=== PATIENT | female | born 1940 | race Caucasian/White ===

== ENCOUNTER 2022-04-17 11:00 | Emergency (ER) | payer MEDICARE, BC, SELFPAY ==
[2022-04-17 11:10] VITALS: BP 127/77; PULSE 83; RESP 19; TEMP 36.6; O2SAT 97; BMI 20.6
--- NOTE | 2022-04-17 14:11 | XR_ITS ---
WS: [id number] XR chest 1V portable [id number] REASON FOR EXAM: dyspnea FINDINGS: Moderate tortuosity the thoracic aorta. Normal heart size. Coarse reticular nodular interstitial densities in both lower lung collazo and the periphery of the ri ght upper lung field. Compared to the previous examination of 02/02/2019 these would appear to be chronic lung abnormalities. Small areas of lucency throughout both lungs compatible with central lobar emphysema or honeycomb dilia ng secondary to interstitial lung disease. No acute pulmonary parenchymal or pleural abnormality is identified. XR/XR chest 1V portable [id number] IMPRESSION: Stable chronic lung disease with no acute abnormality identified.
--- NOTE | 2022-04-17 14:12 | ECG_ITS ---
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 Measurements Intervals [place] Rate: 78 P: 54 MA: 195 QRS: -22 QRSD: 77 T: 15 QT: 363 QTc: 415 Interpretive Statements SINUS RHYTHM LOW QRS VOLTAGE IN PRECORDIAL LEADS [QRS DEFLECTION < 1.0 mV IN CHEST LEADS] INFERIOR MYOCARDIAL INFARCTION , PROBABLY OLD [40+ ms Q WAVE AND/OR ST/T ABNORMALITY IN II/aVF] Compared to ECG 04/22/2015 23:15:41 Low QRS voltage now present Myocardial infarct finding now present ST (T wave) deviation no longer present Electronically Signed On 04-17-2022 20:57:01 CDT by Isabel Hardwick M.D. [id number]
--- NOTE | 2022-04-17 14:39 | ED_ITS ---
HPI - General Adult General: Chief complaint: Shortness of Breath/Dyspnea Stated complaint: SOB, Low B/P Time Seen by Provider: 04/17/22 14:11 History of Present Illness: 81-year-old female with a history of recurrent pneumonia presenting to the emergency room with 2 days of nonproductive cough and 1 day of respiratory distress. Patient tells me that 2 days ago she began coughing and has since then worsened. Patient denies any mucus production. Earlier today, patient reports shortness feeling short of breath. Patient denies any fever reports chills. He has intermittent chest pressure over the last few days. Patient denies any exertional chest pain, pleuritic chest pain, diarrhea, melena hematochezia. Patient denies any change in taste. Denies any complaints at this time. Of note, patient has been hospitalized in the past for pneumonia. She denies any history of smoking, COPD or asthma. Onset: 2 days ago Duration:2 days Location:home Severity: moderate Associated symptoms: Reports dyspnea; Deny chest pain, nausea, rash, palpitations or vomiting Review of Systems Const: Denies: fever(s) or chills Eyes: Denies: change in vision ENMT: Denies: mouth pain Card: Denies: chest pain or palpitations Resp: Reports: dyspnea and non-productive cough GI: Denies: abdominal pain, nausea, vomiting or diarrhea : Denies: dysuria Musc: Denies: extremity pain Skin/Breast: Denies: rash or new lesions Neuro: Denies: weakness in extremities Psych: Reports: other (Normal mood) Hiren/Lymph: Denies: easy bruising PFS ED PFSH: Medical History Pneumonia Social History Smoking and tobacco status: never smoked Alcohol intake: never Physical Exam Const: COMMON NORMALS: alert HENMT: COMMON NORMALS: atraumatic HEAD & SCALP: atraumatic MOUTH: moist mucous membranes not abnormal Eye: COMMON NORMALS: EOMs intact bilaterally and conjunctivae normal CONJUNCTIVA: Yes conjunctivae normal Neck/C-Spine: COMMON NORMALS: full ROM and supple Resp: COMMON NORMALS: normal respiratory effort OTHER: + Mild increased work breathing, mild bilateral expiratory wheeze Cardio: COMMON NORMALS: regular rate RATE: regular rate GI: COMMON NORMALS: Soft to palpation and non-tender PALPATION: Yes Soft to palpation Extremity: COMMON NORMALS: full ROM Neuro: SENSORIUM/ORIENTATION: Yes alert MOTOR EXAM: No Abnormal motor strength present and Other motor observations present (no focal motor deficits) Psych: COMMON NORMALS: speech normal SPEECH: Yes normal speech MOOD & AFFECT: Yes euthymic mood Course Vital Signs: Vital signs: Vital Signs Temperature 97.9 F 04/17/22 11:10 Pulse Rate 66 04/17/22 17:08 Respiratory Rate 16 04/17/22 17:08 Blood Pressure 124/67 04/17/22 17:08 Pulse Oximetry 94 04/17/22 16:43 MDM - General Adult Medical Decision Making 81-year-old female with history of recurrent pneumonia presenting to the emergency room 2 days of cough followed by shortness of breath x1 day. On physical exam, patient is hemodynamically stable satting at greater than 95% on room air. Patient has bilateral expiratory wheezes mild increased work of sang thing. No signs of oral airway compromise or respiratory distress. X-ray chest is similar to prior. Patient's COVID antigen positive. No signs of hypoxemia were observed in the emergency room. Patient received DuoNeb treatment with significant symptomatic improvement in wheezing. Patient reports that she is no longer in respiratory distress. I discussed with pharmacy with recommendation for paxlovid since patient is a candidate for outpatient treatment. Patient meets criteria for receiving Paxlovid. Rx: tylenol PRN fever and pain, albuterol for respiratory distress, palvodi I have given patient strict return precaution for any drops in the pulse ox to less than 88% while on oxygen. Disposition: Discharge. Patient counseled regarding diagnostic impression, treatment plan. Patient given ED strict return precautions to return for continuation, worsening, or development of new symptoms. Instructed to f/u w/ PCP regarding symptoms today. Patient verbalized understanding. Lab Data : 04/17/22 15:00 04/17/22 15:46 Radiology Impressions Chest X-Ray 04/17/22 14:11 IMPRESSION: Stable chronic lung disease with no acute abnormality identified. Laboratory Results WBC 7.3 10^3/uL (4.0-10.0) 04/17/22 15:00 RBC 4.74 10^6/uL (4.1-5.3) 04/17/22 15:00 Hgb 14.3 g/dL (11.5-15.3) 04/17/22 15:00 Hct 43.0 % (37.0-47.0) 04/17/22 15:00 MCV 90.7 fl (81-99) 04/17/22 15:00 MCH 30.2 pg (28.0-34.0) 04/17/22 15:00 MCHC 33.3 g/dL (30.0-36.0) 04/17/22 15:00 RDW 13.0 % (12.1-15.1) 04/17/22 15:00 Plt Count 234 10^3/cmm (130-400) 04/17/22 15:00 MPV 10.7 fL (7.4-10.4) H 04/17/22 15:00 Neut % (Auto) 67.3 % 04/17/22 15:00 Lymph % (Auto) 23.9 % 04/17/22 15:00 [place] % (Auto) 7.0 % 04/17/22 15:00 Eos % (Auto) 1.1 % 04/17/22 15:00 Baso % (Auto) 0.4 % 04/17/22 15:00 Neut # (Auto) 4.90 10^3/uL (1.8-7.7) 04/17/22 15:00 Lymph # (Auto) 1.7 10^3/uL (0.8-4.8) 04/17/22 15:00 [place] # (Auto) 0.5 10^3/uL (0.2-0.9) 04/17/22 15:00 Eos # (Auto) 0.1 10^3/uL (0.0-0.8) 04/17/22 15:00 Baso # (Auto) 0.0 10^3/uL (0.0-0.1) 04/17/22 15:00 Nucleated RBC % (auto) 0 % 04/17/22 15:00 Nucleated RBCs # 0.0 /100WBC 04/17/22 15:00 Sodium 135 mmol/L (136-145) L 04/17/22 15:46 Potassium 3.3 mmol/L (3.5-5.1) L 04/17/22 15:46 Chloride 100 mmol/L (98-107) 04/17/22 15:46 Carbon Dioxide 20 mmol/L (22-29) L 04/17/22 15:46 Anion Gap 18.3 (5-19) 04/17/22 15:46 BUN 18 mg/dL (8-23) 04/17/22 15:46 Creatinine 0.9 mg/dL (0.5-0.9) 04/17/22 15:46 GFR Calculation Not Reportable 04/17/22 15:46 Glucose 106 mg/dL (65-115) 04/17/22 15:46 Calculated Osmolality 282 mOsm/kg (285-295) L 04/17/22 15:46 Calcium 9.9 mg/dL (8.5-10.5) 04/17/22 15:46 Troponin T Baseline 6 ng/L (0-10) 04/17/22 15:00 C-Reactive Protein 9.8 mg/L (0.0-4.9) H 04/17/22 15:46 NT-Pro-B Natriuret Pep 632 pg/mL (0-450) H 04/17/22 15:46 Procalcitonin 0.07 ng/mL (0-0.5) 04/17/22 15:46 Influenza Type A Ag Negative (Negative) 04/17/22 15:00 Influenza Type B Ag Negative (Negative) 04/17/22 15:00 SARS-CoV-2 Ag (Rapid) Positive (Negative) H 04/17/22 15:00 Imaging Data Other Imaging: Radiologist's impression: [address] [address] XRay Report Signed Patient: Karen Hernandes Unit #: [id number] : 1940 Age/Sex: 81 / F ADM Date: 04/17/22 Loc: ER Room/Bed: Attending Dr: Ordering Provider/Ordering MD: Tai Hatfield MD Date of Service: 04/17/22 Procedure(s): XR chest 1V portable [id number] Accession Number(s): [id number] Report Number: [id number] WS: [id number] XR chest 1V portable [id number] REASON FOR EXAM: dyspnea FINDINGS: Moderate tortuosity the thoracic aorta. Normal heart size. Coarse reticular nodular interstitial densities in both lower lung collazo and the periphery of the right upper lung field. Compared to the previous examination of 02/02/2019 these would appear to be chronic lung abnormalities. Small areas of lucency throughout both lungs compatible with central lobar emphysema or honeycomb lung secondary to interstitial lung disease. No acute pulmonary parenchymal or pleural abnormality is identified. XR/XR chest 1V portable [id number] IMPRESSION: Stable chronic lung disease with no acute abnormality identified. ? ? Dictated By: Juarez Khan Jr, MD Signed By: Juarez Khan Jr, MD Signed Date/Time: 04/17/22 1505 DD/ 1458 Discharge Plan Discharge Patient Disposition: Home Clinical Impression: Acute dyspnea, Cough, Bilateral wheezing, COVID Prescriptions: New acetaminophen 500 mg tablet 500 mg PO Q6H PRN (Reason: pain) 5 Days Qty: 20 0RF albuterol sulfate 90 mcg/actuation HFA aerosol inhaler 2 inh inhalation Q4H PRN (Reason: shortness of breath or wheezing) 5 Days Qty: 6.7 0RF Paxlovid (EUA) 150 mg x 2- 100 mg tablet See Rx Instructions .ROUTE .COMPLEX Qty: 6 0RF Rx Instructions: take TWO 150 mg tablets of nirmatrelvir with ONE 100 mg tablet of ritonavir twice daily for 5 days No Action albuterol sulfate 90 mcg/actuation HFA aerosol inhaler 2 puff INHALATION Q4H PRN (Reason: Shortness Of Breath) 0RF fluticasone propionate 50 mcg/actuation spray,suspension 1 spray INTRANASAL BID PRN (Reason: Allergy Symptoms) 0RF Discharge Orders: Discharge ED (Routine); Ordered 04/17/22 Ordered By: Tai Hatfield Discharge Diet: Advance as tolerated Discharge Activity: Increase activity as tolerated Activity Restrictions/Additional Instructions: Please return the emergency room if your pulse ox reads less than 88%. Come back to the emergency room if your symptoms worsen, have any shortness of breath, fever/chills, dehydration, inability tolerate food or drinks, any difficulty breathing, or any new or concerning complaints. Coding Level of Care Code ED Insurance Operations Rep for Keke Fwd Exam Comprehensive
[2022-04-17] MEDS: ipratropium-albuterol 3 mL Neb INHALATION ×3 (15:12→15:22)
[2022-04-17 15:16] VITALS: PULSE 78; RESP 16; O2SAT 93
[2022-04-17 15:16] LABS: Basophils % 0.4 %; Eosinophils # 0.1 10^3/uL (0.0-0.8); Eosinophils % 1.1 %; Hemoglobin 14.3 g/dL (11.5-15.3); Lymphocytes # 1.7 10^3/uL (0.8-4.8); Lymphocytes % 23.9 %; Mean Corpuscular HGB Conc 33.3 g/dL (30.0-36.0); Mean Corpuscular Hemoglobin 30.2 pg (28.0-34.0); Mean Corpuscular Volume 90.7 fl (81-99); Mean Platelet Volume 10.7 fL (7.4-10.4); Monocytes # 0.5 10^3/uL (0.2-0.9); Neutrophils % 67.3 %; Nucleated Red Blood Cells % 0 %; Platelet Count 234 10^3/cmm (130-400); Red Blood Count 4.74 10^6/uL (4.1-5.3); White Blood Count 7.3 10^3/uL (4.0-10.0)
[2022-04-17 15:36] LABS: Influenza A by IFA Negative (Negative); Influenza B by IFA Negative (Negative); SARS Covid-2 Antigen Positive (Negative)
[2022-04-17 15:45] LABS: Troponin(5th) Baseline 6 ng/L (0-10)
[2022-04-17 16:35] LABS: NT Pro B Type Natriuretic Pept 632 pg/mL (0-450); Procalcitonin 0.07 ng/mL (0-0.5)
[2022-04-17 16:43] VITALS: O2SAT 94; O2SAT 96
[2022-04-17 16:46] LABS: Anion Gap 18.3 (5-19); Blood Urea Nitrogen 18 mg/dL (8-23); C Reactive Protein 9.8 mg/L (0.0-4.9); Calcium 9.9 mg/dL (8.5-10.5); Carbon Dioxide 20 mmol/L (22-29); Chloride 100 mmol/L (98-107); Glucose 106 mg/dL (65-115); Osmolality Calculated 282 mOsm/kg (285-295); Potassium 3.3 mmol/L (3.5-5.1); Sodium 135 mmol/L (136-145)
[2022-04-17 17:08] VITALS: BP 124/67; PULSE 66; RESP 16
== END 2022-04-17 17:11 | disposition home or self-care (01) ==
PROVIDERS: Emergency Provider Emergency Medicine
DX: U07.1 COVID-19 (principal)
CPT/HCPCS: 71045; 80048; 83880; 84145; 84484; 85025; 86140; 87426; 87804; 93005; 94640; 99285

== ENCOUNTER 2023-01-22 11:46 | Inpatient (IN) | payer MEDICARE, SELFPAY ==
[2023-01-22] VITALS (11 sets, daily range): BP systolic 108–133; BP diastolic 63–81; PULSE 88–101; RESP 15–20; TEMP 36.5–36.9; O2SAT 90–100; BMI 16.9
--- NOTE | 2023-01-22 12:00 | CT_ITS ---
WS: [id number] CT LUMBAR SPINE TECHNIQUE: Noncontrast CT of the lumbar spine with coronal and sagittal reformatted images. CLINICAL INFORMATION: fall, back pain COMPARISON: None. DLP: 298.[address] scans at [facility] use at least one of these dose optimization techniques: automated e xposure control; mA and/or kV adjustment per patient size (includes targeted exams where dose is matc hed to clinical indication); or iterative reconstruction. FINDINGS: Slight anterolisthesis L3 on L4 and L4 on L5 with vacuum disc phenomenon. Disc space narrow ing worse at L2-L3. Small infrarenal abdominal aortic aneurysm measuring 2.3 x 2.4 cm AP by transvers e. Trace pleural fluid LEFT lower lobe. Acute compression fracture T12 superior endplate with mild retropulsion posterior superior cortex wit h mild central canal stenosis. Slight effacement of ventral thecal sac. Loss of approximately 25% tone tebral body height. No other acute compression fractures. L1-L2: Mild annular bulging. Spinal canal and foramen are patent. Mild facet arthropathy. L2-L3: Mild disc bulging with slight narrowing of the subarticular recess bilaterally. Mild facet art hropathy. L3-L4: Slight anterolisthesis L3 on L4. Moderate central canal stenosis. Impingement traversing L4 ne rve roots bilaterally. Moderate facet arthropathy. Mild RIGHT foraminal narrowing. L4-L5: Slight anterolisthesis L4 on L5. Mild disc bulging with impingement traversing L5 nerve roots bilaterally. Mild central canal stenosis. Mild RIGHT foraminal narrowing. L5-S1: Mild annular bulging. Slight effacement of ventral thecal sac. Spinal canal foramen are patent . Adrenal glands are normal. Vascular calcification. CT/CT lumbar spine wo con* [id number] IMPRESSION: 1. Acute compression fracture T12 superior endplate with loss of approximately 25% vertebral body height. Minimal retropulsion with slight effacement of vent ral thecal sac and mild central canal stenosis. 2. Moderate central canal stenosis L3-L4 due to grade 1 anterolisthesis in com bination with facet arthropathy ligamentum flavum hypertrophy. 3. Mild central canal stenosis L4-L5. Notified Rodo Alexander DO at 01/22/2023 1:19 PM.
[2023-01-22] MEDS: lactated ringers 500 ML 999 ML IV ×2 (12:28→15:31)
[2023-01-22 12:34] LABS: Basophils # 0.1 10^3/uL (0.0-0.1); Basophils % 0.4 %; Eosinophils # 0.1 10^3/uL (0.0-0.8); Eosinophils % 0.4 %; Hematocrit 37.8 % (37.0-47.0); Hemoglobin 12.3 g/dL (11.5-15.3); Lymphocytes # 1.8 10^3/uL (0.8-4.8); Lymphocytes % 11.6 %; Mean Corpuscular HGB Conc 32.5 g/dL (30.0-36.0); Mean Corpuscular Hemoglobin 29.7 pg (28.0-34.0); Mean Corpuscular Volume 91.3 fl (81-99); Mean Platelet Volume 8.9 fL (7.4-10.4); Monocytes % 6.3 %; Neutrophils # 12.31 10^3/uL (1.8-7.7); Neutrophils % 79.7 %; Nucleated Red Blood Cells % 0 %; Platelet Count 398 10^3/cmm (130-400); Red Blood Count 4.14 10^6/uL (4.1-5.3); White Blood Count 15.4 10^3/uL (4.0-10.0)
[2023-01-22 12:50] LABS: Alanine Aminotransferase 11 U/L (0-33); Albumin Level 3.5 g/dL (3.5-5.2); Alkaline Phosphatase 77 U/L (35-105); Anion Gap 15.1 (5-19); Aspartate Amino Transferase 25 U/L (0-32); Blood Urea Nitrogen 24 mg/dL (8-23); Calcium 9.8 mg/dL (8.5-10.5); Carbon Dioxide 26 mmol/L (22-29); Chloride 94 mmol/L (98-107); Glucose 106 mg/dL (65-115); Osmolality Calculated 276 mOsm/kg (285-295); Potassium 4.1 mmol/L (3.5-5.1); Sodium 131 mmol/L (136-145); Total Bilirubin 0.5 mg/dL (0.15-1.2); Total Protein 8.5 g/dL (6.6-8.7)
--- NOTE | 2023-01-22 13:24 | W.ED.FALL ---
HPI - Fall General: Chief Complaint: Fall Stated Complaint: Back pain Time Seen by Provider: 01/22/23 11:51 Source: patient Mode of arrival: EMS History of Present Illness: 82-year-old female who presents to the emergency room after a fall this morning. She had gotten up to go to the kitchen got lightheaded and dizzy and fell she said she has had this issue before she never had any chest pain she has severe back pain at this time. She had a period of time where she was this unconscious. She has not had any vision changes no localizing symptoms no difficulty speech or swallowing. She is complaining of some shortness of breath. MD complaint: fall Onset (ago): minute(s) Fall from: standing Place fall occurred: home Loss of consciousness: Yes Symptoms prior to fall: lightheadedness Location of injury: back Associated symptoms-after fall: Reports lightheadedness; Denies abdominal pain, chest pain, confusion, difficulty walking, headache(s), hematuria, neck pain, numbness, short of breath, vertigo or weakness Review of Systems Const: Denies: fever(s), chills, body aches, change in appetite, fatigue or malaise ENMT: Denies: throat pain, ear or mastoid pain, nasal discharge or nasal congestion Card: Reports: lightheadedness; Denies: chest pain Resp: Reports: dyspnea and non-productive cough; Denies: productive cough GI: Denies: abdominal pain, nausea or vomiting : Denies: dysuria, urinary frequency, urinary urgency or hematuria Musc: Denies: neck pain Skin/Breast: Denies: rash or pruritus Neuro: Denies: headache(s), difficulty walking, vertigo or confusion PFSH ED PFSH: Medical History Allergic rhinitis COVID Pneumonia Surgical History H/O section History of abdominal surgery Family History Father Myocardial infarction Family/Other Breast cancer Social History Smoking and tobacco status: never smoked Alcohol intake: never Substance/Drug Use: never Physical Exam Const: GENERAL APPEARANCE: cooperative and comfortable ORIENTATION/CONSCIOUSNESS: Yes awake, Yes oriented to person, Yes oriented to place and Yes oriented to time HENMT: COMMON NORMALS: normocephalic, atraumatic and hearing grossly normal bilaterally HEAD & SCALP: normocephalic and atraumatic Resp: COMMON NORMALS: normal respiratory effort, No retractions, No use of accessory muscles and clear to auscultation bilaterally AUSCULTATION: clear to auscultation bilaterally Cardio: COMMON NORMALS: regular rate, regular rhythm and No murmurs present (Cardio) RATE: regular rate RHYTHM: regular rhythm GI: COMMON NORMALS: Soft to palpation and No hepatosplenomegaly present AUSCULTATION: Yes normoactive bowel sounds PALPATION: Yes Soft to palpation, No Tenderness to palpation present (GI), No Guarding due to palpation present (GI) and Yes No hepatosplenomegaly present Extremity: COMMON NORMALS: normal to inspection, capillary refill normal, no clubbing, cyanosis or edema, no calf tenderness and no pedal edema Neuro: SENSORIUM/ORIENTATION: Yes oriented to person, Yes oriented to place and Yes oriented to time Skin: COMMON NORMALS: no rashes or lesions noted GENERAL SKIN EXAM: no rashes or lesions noted Course Vital Signs: Vital signs: Vital Signs Temperature 101.1 F H 01/23/23 03:41 Pulse Rate 125 H 01/23/23 03:41 Respiratory Rate 15 01/23/23 03:41 Blood Pressure 132/88 01/23/23 03:41 Pulse Oximetry 91 01/23/23 03:41 Oxygen Delivery Me thod Nasal Cannula 01/23/23 03:41 Oxygen Flow Rate 2 01/23/23 03:41 MDM - Fall Medical Decision Making Chest x-ray she does have some leukocytosis will cover with antibiotics discussed with hospitalist. Will admit to hospitalist service. Her oxygen saturations are normal pain control. Discussed Dr. gaviria and he is agreed to see the patient on inpatient basis for consultation regarding the back fracture. Fragment of retropulsion when she will evaluate further Medical Records I reviewed the patient's medical records. Lab Data I reviewed the patient's lab results. 01/23/23 05:00 01/23/23 05:00 Radiology Impressions Lumbar Spine CT 01/22/23 12:00 IMPRESSION: 1. Acute compression fracture T12 superior endplate with loss of approximately 25% vertebral body height. Minimal retropulsion with slight effacement of ventral thecal sac and mild central canal stenosis. 2. Moderate central canal stenosis L3-L4 due to grade 1 anterolisthesis in combination with facet arthropathy ligamentum flavum hypertrophy. 3. Mild central canal stenosis L4-L5. Notified Rodo Alexander DO at 01/22/2023 1:19 PM. Chest X-Ray 01/22/23 13:25 IMPRESSION: 1. Consolidating infiltrates in the right lower lobe suspicious for pneumonia. 2. Superimposed chronic changes and widespread changes of honeycombing and emphysema noted. Cervical Spine CT 01/22/23 13:26 IMPRESSION: No evidence of acute fracture or dislocation. Head CT 01/22/23 13: IMPRESSION: 1. No evidence of intracranial hemorrhage or mass effect. 2. Moderate small vessel changes moderate parenchymal volume loss. 3. Vascular calcification. 4. No acute intracranial findings. Thoracic Spine MRI 01/22/23 17:27 IMPRESSION: Acute compression fracture of T12 vertebral body. No spinal canal compromise. Additional details as above. Laboratory Results WBC 15.4 10^3/uL (4.0-10.0) H 01/22/23 12:27 RBC 4.14 10^6/uL (4.1-5.3) 01/22/23 12:27 Hgb 12.3 g/dL (11.5-15.3) 01/22/23 12:27 Hct 37.8 % (37.0-47.0) 01/22/23 12:27 MCV 91.3 fl (81-99) 01/22/23 12:27 MCH 29.7 pg (28.0-34.0) 01/22/23 12:27 MCHC 32.5 g/dL (30.0-36.0) 01/22/23 12:27 RDW 13.0 % (12.1-15.1) 01/22/23 12:27 Plt Count 398 10^3/cmm (130-400) 01/22/23 12:27 MPV 8.9 fL (7.4-10.4) 01/22/23 12:27 Neut % (Auto) 79.7 % 01/22/23 12:27 Lymph % (Auto) 11.6 % 01/22/23 12: [place] % (Auto) 6.3 % 01/22/23 12: Eos % (Auto) 0.4 % 01/22/23 12: Baso % (Auto) 0.4 % 01/22/23 12: Neut # (Auto) 12.31 10^3/uL (1.8-7.7) H 01/22/23 12: Lymph # (Auto) 1.8 10^3/uL (0.8-4.8) 01/22/23 12: [place] # (Auto) 1.0 10^3/uL (0.2-0.9) H 01/22/23 12: Eos # (Auto) 0.1 10^3/uL (0.0-0.8) 01/22/23 12: Baso # (Auto) 0.1 10^3/uL (0.0-0.1) 01/22/23 12: Nucleated RBC % (auto) 0 % 01/22/23 12: Nucleated RBCs # 0.0 /100WBC 01/22/23 12: Sodium 131 mmol/L (136-145) L 01/22/23 12: Potassium 4.1 mmol/L (3.5-5.1) 01/22/23 12: Chloride 94 mmol/L (98-107) L 01/22/23 12: Carbon Dioxide 26 mmol/L (22-29) 01/22/23 12: Anion Gap 15.1 (5-19) 01/22/23 12: BUN 24 mg/dL (8-23) H 01/22/23 12: Creatinine 0.9 mg/dL (0.5-0.9) 01/22/23 12: GFR Calculation Not Reportable 01/22/23 12: Glucose 106 mg/dL (65-115) 01/22/23 12: Calculated Osmolality 276 mOsm/kg (285-295) L 01/22/23 12: Calcium 9.8 mg/dL (8.5-10.5) 01/22/23 12: Total Bilirubin 0.5 mg/dL (0.15-1.2) 01/22/23 12: AST 25 U/L (0-32) 01/22/23 12:27 ALT 11 U/L (0-33) 01/22/23 12:27 Alkaline Phosphatase 77 U/L (35-105) 01/22/23 12:27 C-Reactive Protein 45.4 mg/L (0.0-4.9) H 01/22/23 12:27 Total Protein 8.5 g/dL (6.6-8.7) 01/22/23 12: Albumin 3.5 g/dL (3.5-5.2) 01/22/23 12: Globulin 5.0 g/dL (1.3-4.6) H 01/22/23 12:27 Procalcitonin 0.12 ng/mL (0-0.5) 01/22/23 12:27 Urine Color Yellow (Yellow) 01/22/23 13:09 Urine Appearance Clear (CLEAR) 01/22/23 13:09 Urine pH 6 (5-7) 01/22/23 13:09 Ur Specific [place] 1.010 (1.005-1.030) 01/22/23 13:09 Urine Protein Neg (Negative) 01/22/23 13:09 Urine Glucose (UA) Norm (Normal) 01/22/23 13:09 Urine Ketones Negative (Negative) 01/22/23 13:09 Urine Blood Neg (Negative) 01/22/23 13:09 Urine Nitrate Negative (Negative) 01/22/23 13:09 Urine Bilirubin Neg (Negative) 01/22/23 13:09 Urine Urobilinogen Norm mg/dL (Negative) 01/22/23 13:09 Ur Leukocyte Esterase Negative (Negative) 01/22/23 13:09 Discharge Plan Discharge Patient Disposition: Admitted As Inpatient Admit Provider: Manjinder Russell Clinical Impression: Traumatic compression fracture of T12 thoracic vertebra, Right lower lobe pneumonia Condition: Stable Coding Level of Care Code ED Blood Bank Business Manager for Keke Alvarez
--- NOTE | 2023-01-22 13:25 | XR_ITS ---
WS: [email or web address] Exam: XR chest 1V portable [id number] Date/Time of Exam: 01/22/2023 1:27 PM Reason For Exam: dyspnea/cough Comparison 04/17/2022. Consolidated infiltrate noted in the right lower lobe suspicious for active pneumonia. Chronic left b hung changes noted. Advanced changes of honeycombing and fibrosis in both lungs. Heart size is normal . The mediastinum is unremarkable for portable technique. Bony structures are intact. Bilateral apica l pleural thickening. XR/XR chest 1V portable [id number] IMPRESSION: 1. Consolidating infiltrates in the right lower lobe suspicious for pneumonia. 2. Superimposed chronic changes and widespread changes of honeycombing and emph ysema noted.
[2023-01-22 13:26] LABS: Add Urine Microscopic? NO; Charge for UA Resulting for Rev
--- NOTE | 2023-01-22 13:26 | CT_ITS ---
WS: [id number] CT CERVICAL TRAUMA TECHNIQUE: Noncontrast CT of the cervical spine with coronal and sagittal reformatted images. CLINICAL INFORMATION: Neck pain COMPARISON: None. DLP: 1306.[address] scans at [facility] use at least one of these dose optimization techniques: automated e xposure control; mA and/or kV adjustment per patient size (includes targeted exams where dose is matc hed to clinical indication); or iterative reconstruction. FINDINGS: Moderate spondylitic changes cervical spine. Slight anterolisthesis C3 on C4. Disc space narrowing wo rse at C4-C5 C5-C6 and C6-C7.. Normal craniocervical junction. Normal C1-C2 articulation. Dens is nor mal in appearance. Normal occipital condyles. No high-grade spinal canal narrowing. Normal C1 ring. N o evidence of acute fracture or dislocation. Normal prevertebral soft tissues. Mastoids air cells are well aerated. CT/CT cervical spin wo con* [id number] IMPRESSION: No evidence of acute fracture or dislocation.
--- NOTE | 2023-01-22 13:26 | CT_ITS ---
WS: [email or web address] CT HEAD TECHNIQUE: Noncontrast CT of the head obtained from the skullbase to the vertex. CLINICAL INFORMATION: fall COMPARISON: None. DLP: 1306.[address] scans at [facility] use at least one of these dose optimization techniques: automated e xposure control; mA and/or kV adjustment per patient size (includes targeted exams where dose is matc hed to clinical indication); or iterative reconstruction. FINDINGS: No evidence of intracranial hemorrhage or mass effect. Ventricular system and basal cisterns are henderson nt. Moderate small vessel changes with moderate parenchymal volume loss. No extra-axial fluid collect ions. No evidence of mass or mass effect. Vascular calcification. Paranasal sinuses and mastoid air cells are well aerated. .Normal visualized soft tissues. CT/CT head wo con* [id number] IMPRESSION: 1. No evidence of intracranial hemorrhage or mass effect. 2. Moderate small vessel changes moderate parenchymal volume loss. 3. Vascular calcification. 4. No acute intracranial findings.
[2023-01-22 13:41] LABS: Glucose Urine UA Norm (Normal); Protein Urine Neg (Negative); Urine Appearance Clear (CLEAR); Urine Color Yellow (Yellow); pH Urine 6 (5-7)
[2023-01-22 13:42] LABS: Bilirubin Urine Neg (Negative); Blood Urine Neg (Negative); Ketones Urine Negative (Negative); Leukocyte Esterase Urine Negative (Negative); Nitrate Urine Negative (Negative); Urobilinogen Urine Norm (Negative)
[2023-01-22] MEDS: morphine 4 mg/mL SDV 1 mL IVP (13:53)
--- NOTE | 2023-01-22 15:10 | PM.HP ---
Providers/Chief Complaint Admitting Physician: Manjinder Russell MD Primary Care Provider: Eber Albarran MD Chief Complaint: Back pain History of Present Illness Karen Hernandes is a 82 year old female with a past medical history significant for recurrent pneumonia who presents to the emergency department complaining of low back pain. Patient reports she was in her usual state of health until today when she got dizzy in her kitchen and fell. After falling, she had severe low back pain. She rates her low back pain currently 20 out of 10. She reports any movement worsens pain. Rest improves pain. She got morphine in ED but states it has not helped but seems to have caused a headache. Patient also endorses worsening chronic cough. She describes her cough as severe and productive. She notes copious sputum production. She reports at least 4 prior severe pneumonias. Denies history of known asthma or COPD. She denies home oxygen use. She states that she lives alone and performs her own ADLs. Family is next door and can help if needed. Review of Systems Narrative: A complete review of systems was obtained and is negative except as stated in HPI. Medications/Allergies Home Medications Medication Instructions Recorded Confirmed Last Taken Type albuterol sulfate 90 mcg/actuation 2 puff inhalation Q4H PRN 04/17/22 01/22/23 Unknown History aerosol inhaler Shortness Of Breath acetaminophen 500 mg tablet 500 mg PO Q6H PRN Pain 01/22/23 01/22/23 Unknown History cetirizine 10 mg tablet 10 mg PO BEDTIME 01/22/23 01/22/23 Unknown History dextromethorphan-guaifenesin 5 10 ml PO DAILY PRN Congestion 01/22/23 01/22/23 Unknown History mg-100 mg/5 mL oral liquid (Mucinex Fast-Max DM Max) lorazepam 1 mg tablet 0.5 - 1 mg PO DAILY PRN Anxiety 01/22/23 01/22/23 Unknown History montelukast 10 mg tablet 10 mg PO DAILY PRN Allergy Symptoms 01/22/23 01/22/23 Unknown History Allergies Allergy/AdvReac Type Severity Reaction Status Date / Time meperidine [From Demerol] Allergy ADR-Halluci Verified 01/22/23 13:01 nating PFSH Acute PFSH: Medical History Allergic rhinitis COVID Pneumonia Surgical History H/O section History of abdominal surgery Family History Father Myocardial infarction Family/Other Breast cancer Social History Smoking and tobacco status: never smoked Alcohol intake: never Substance/Drug Use: never Vitals/I&O/Wt Last Vital Signs Temp 98.4 F 01/22/23 11:48 Pulse 88 01/22/23 11:48 Resp 16 01/22/23 13:53 BP 111/78 01/22/23 11:48 Pulse Ox 97 01/22/23 13:53 O2 Del Method Room Air 01/22/23 11:48 01/22/23 01/22/23 01/22/23 06:59 14:59 22:59 Intake Total 500 / 500 Balance 500 / 500 Weight last 48 hrs Weight 42.184 kg Physical Exam Narrative: General: Patient is awake. Appears uncomfortable. Head: Normocephalic. Atraumatic. EOM intact. Neck: No JVD. Cardiovascular: RRR. No gallops. No murmurs. No peripheral edema. Lungs: Rales in right lung base. Left lung clear. No use of accessory muscles, no crackles or wheezes. Cough is present. Skin: No jaundice. No rashes. Abdomen: Normal bowel sounds, abdomen soft and nontender. Genito Urinary: Genital exam not performed since complaints not related. Rectal: Rectal exam not performed since no symptoms indicated blood loss. Back: Back exam deferred due to severe pain. Extremities: No cyanosis or clubbing. Musculoskeletal: No swollen or erythematous joints. Neurological: Moves all 4 extremities. No myoclonus. Data 01/22/23 12:27 01/22/23 12:27 A&P Assessment and plan (1) T12 vertebral fracture: Acute T12 fracture secondary to mechanical fall Surgery consulted Multimodal pain control Bedrest Will eventually need PT and OT Consider calcium and vitamin D supplementation (2) Right lower lobe pneumonia: Imaging reviewed including all past imaging Right sided infiltrate is worsening Symptoms are worsening Procal ordered Legionella ag ordered given hyponatremia Strep pneumo ag ordered Start ceftriaxone Start azithromycin Consider pulmonary referral RT consult Bronchodialator protocol (3) Fall: Denies LOC Head and cervical neck CT scan is pending Multimodal pain control Fall precautions (4) Hyponatremia: Hypovolemic hyponatremia Receiving IV fluids in ED Repeat labs in AM (5) Leukocytosis: Either 2/2 PNA versus stress induced CAP w/u as above Trend (6) Allergic rhinitis: Continue Zyrtec Continue Montelukast Plan DVT ppx: SCD Code Status: DNR - Discuss w/ patient with daughter Marilee present Attestations Medical Necessity Statement*: Patient presents with low back pain following mechanical fall likely brought on by right lower lobe community acquired pneumonia causing acute T12 fracture requiring IV analgesics, IV antibiotics, IV fluids, surgery consult and supportive care with expected hospitalization not to cross two midnights. Coding Level of Care Code Acute Code for [facility] Diagnoses T12 vertebral fracture S22.089A Right lower lobe pneumonia J18.9 Fall W19.XXXA Hyponatremia E87.1 Leukocytosis D72.829 Allergic rhinitis J30.9
[2023-01-22] MEDS: HYDROcodone-acetaminophen 5-325 mg Tablet 1 TAB PO ×2 (16:32→21:06)
[2023-01-22] MEDS: cefTRIAXone 1,000 MG in sodium chloride 0.9% (plus) 50 ML 100 MG IV (16:34)
[2023-01-22 16:57] LABS: C Reactive Protein 45.4 mg/L (0.0-4.9)
[2023-01-22 17:03] LABS: Procalcitonin 0.12 ng/mL (0-0.5)
--- NOTE | 2023-01-22 17:27 | MRR_ITS ---
PROCEDURE INFORMATION: Exam: MR Thoracic Spine Without Contrast Exam date and time: 01/22/2023 7:47 PM Age: 82 years old Clinical indication: Pain and injury or trauma; Fall; Fracture, traumatic; Unspecified; Pain in thoracic spine TECHNIQUE: Imaging protocol: Magnetic resonance imaging of the thoracic spine without contrast. COMPARISON: CT cervical spin wo con* [id number] 01/22/2023 2:22 PM FINDINGS: Bones/joints: Acute 40% compression of T12 vertebral body. Very minimal retropulsion noted but no spinal canal narrowing. 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 Spinal cord: Normal signal. No cord compression. Soft tissues: See Bones/joints finding. Lungs: Consolidated infiltrates at right lower lobe and perhaps involving a smaller portion of right middle lobe are most suspicious for pneumonia. Vasculature: Aberrant right subclavian artery. MR/MR thoracic spin wo con* [id number] IMPRESSION: Acute compression fracture of T12 vertebral body. No spinal canal compromise. Additional details as above.
--- NOTE | 2023-01-22 17:29 | P.CONIM_ITS ---
Providers/Reason For Consult Consulting Physician/Specialty*: Ortho spine Reason for Consult*: back pain Attending Physician: Manjinder Russell MD Primary Care Provider: Eber Albarran MD History of Present Illness History of Present Illness Karen Hernandes is a 82 year old female who fell at her residence on 01/22/2023 after becoming dizzy. She has had sharp stabbing pain in her back since the fall. She also describes pain at her bra line. This pain is been constant any movement makes it much worse. Any episodes of deep breathing or coughing has exacerbated her pain as well. She presented to the emergency room at [facility] following a CT scan that confirmed a T12 compression fracture. Her pain is in the upper lumbar and mid thoracic region. She denies any loss of conscious in the fall denies any neck pain. Denies any hip or leg pain. Review of Systems Narrative: A complete review of systems was obtained and is negative except as stated in HPI. Medications/Allergies Home Medications Medication Instructions Recorded Confirmed Last Taken Type albuterol sulfate 90 mcg/actuation 2 puff inhalation Q4H PRN 04/17/22 01/22/23 Unknown History aerosol inhaler Shortness Of Breath acetaminophen 500 mg tablet 500 mg PO Q6H PRN Pain 01/22/23 01/22/23 Unknown History cetirizine 10 mg tablet 10 mg PO BEDTIME 01/22/23 01/22/23 Unknown History dextromethorphan-guaifenesin 5 10 ml PO DAILY PRN Congestion 01/22/23 01/22/23 Unknown History mg-100 mg/5 mL oral liquid (Mucinex Fast-Max DM Max) lorazepam 1 mg tablet 0.5 - 1 mg PO DAILY PRN Anxiety 01/22/23 01/22/23 Unknown History montelukast 10 mg tablet 10 mg PO DAILY PRN Allergy Symptoms 01/22/23 01/22/23 Unknown History Allergies Allergy/AdvReac Type Severity Reaction Status Date / Time meperidine [From Demerol] Allergy ADR-Halluci Verified 01/22/23 13:01 nating Current Medications Generic Name Dose Route Start Last Admin Trade Name Freq PRN Reason Stop Dose Admin Hydrocodone Bitart/Acetaminophen 1 tab 01/22/23 15:07 01/22/23 16:32 Hydrocodone-Acetaminophen 5-325 Mg Tablet PO 1 tab Q4H PRN Administration MODERATE PAIN Ceftriaxone Sodium 1,000 mg/ 50 mls @ 100 mls/hr 01/22/23 16:00 01/22/23 16:34 Sodium Chloride IV 100 mls/hr Q24H BENITA Administration Protocol PFSH Acute PFSH: Medical History Allergic rhinitis COVID Pneumonia Surgical History H/O section History of abdominal surgery Family History Father Myocardial infarction Family/Other Breast cancer Social History Smoking and tobacco status: never smoked Alcohol intake: never Substance/Drug Use: never Vitals/I&O/Wt Last Vital Signs Temp 98.4 F 01/22/23 11:48 Pulse 91 01/22/23 14:57 Resp 16 01/22/23 14:57 BP 108/63 01/22/23 14:57 Pulse Ox 92 01/22/23 14:57 O2 Del Method Room Air 01/22/23 17:15 01/22/23 01/22/23 01/22/23 06:59 14:59 22:59 Intake Total 500 / 500 Balance 500 / 500 Weight last 48 hrs Weight 93 lb Weight 93 lb Physical Exam Narrative: She is alert and orient x3 she has good general appearance normal mood and affect. Moving both upper extremities without any limitations. She has good strength throughout both arms. No palpable pain over the shoulders elbows or wrists. She is able to rotate laterally bend her cervical spine with any obvious distress. No palpable pain in the cervical spine. She does have palpable pain in the mid thoracic region around the bra line as well as palpable pain in the lower thoracic upper lumbar region. She has good sensation light touch in both upper and lower extremities she has negative logroll bilaterally skin is clear warm femoral good cap refill dorsalis pedis posterior tibial pulses are palpable. She can flex and extend and rotate both extremities without any problems. Feet are warm with brisk cap refill. Calves are supple. HENMT: COMMON NORMALS: normocephalic and atraumatic HEAD & SCALP: normocephalic and atraumatic Resp: COMMON NORMALS: normal respiratory effort Cardio: COMMON NORMALS: regular rate and regular rhythm RATE: regular rate RHYTHM: regular rhythm GI: COMMON NORMALS: Soft to palpation and non-tender PALPATION: Yes Soft to palpation : COMMON NORMALS: Yes no CVA tenderness BLADDER/KIDNEY EXAM: Yes no CVA tenderness Back/Pelvis: COMMON NORMALS: no CVA tenderness Psych: COMMON NORMALS: mental status grossly normal and cooperative Data 01/22/23 12:27 01/22/23 12:27 Other data: CT/CT lumbar spine wo con* [id number] IMPRESSION: ? 1.? Acute compression fracture T12 superior endplate with loss of approximately 25% vertebral body height. Minimal retropulsion with slight effacement of ve ntral thecal sac and mild central canal stenosis. 2.? Moderate central canal stenosis L3-L4 due to grade 1 anterolisthesis in combination with facet arthropathy ligamentum flavum hypertrophy. 3.? Mild central canal stenosis L4-L5. A&P Assessment and plan (1) Traumatic compression fracture of T12 thoracic vertebra: Reviewed the CT scan with her at length. With her pain being in the mid thoracic region as well would recommend a stat MRI scan of her thoracic spine as she is scheduled for a T12 kyphoplasty tomorrow morning. If there is other levels that are fractured we can address that at that time as well. We will keep her n.p.o. after midnight discussed this at length with Dr. Smith agrees above-stated plan. More than 50% of the time spent with the patient today involved coordination of care, counseling and discussion of conservative versus surgical treatment options. Total amount of time spent with the patient was 32 minutes. Coding Level of Care Code Acute Code for [facility] Diagnoses Traumatic compression fracture of T12 thoracic vertebra S22.080A Time Spent (min) 32
[2023-01-22] MEDS: morphine 4 mg/mL SDV 1 mL 2 MG IVP (17:40)
[2023-01-22] MEDS: sodium chloride 0.9% 1,000 ML 100 ML IV (17:41)
[2023-01-22] MEDS: ceFAZolin 2,000 MG in sodium chloride 0.9% (plus) 50 ML 100 MG IV (18:34)
--- NOTE | 2023-01-22 18:36 | PC.NURSE ---
PATIENT HAS A STAT MRI ORDERED. THIS NURSE CALLED DEVON REPAIR DEPARTMENT SUPERVISOR WHO WAS DATA CENTER ARCHITECT. DEVON DID NOT ANSWER. MESSAGE LEFT TO CALL BACK TO THE FLOOR. THIS NURSE STATED IN THE MESSAGE THE PATIENT NEEDED THIS MRI TONIGHT TO HAVE SURGERY IN THE MORNING.
[2023-01-22] MEDS: LORazepam 1 mg Tablet 0.5 MG PO (19:29)
[2023-01-22] MEDS: morphine 4 mg/mL SDV 1 mL 1 MG IVP (19:31)
[2023-01-22] MEDS: sennosides 8.6 mg Tablet 17.2 MG PO (21:01)
[2023-01-22] MEDS: cetirizine 10 mg Tablet PO (21:01)
[2023-01-23] VITALS (21 sets, daily range): BP systolic 84–132; BP diastolic 43–88; PULSE 82–125; RESP 15–20; TEMP 36.3–38.4; O2SAT 86–99
[2023-01-23] MEDS: HYDROcodone-acetaminophen 5-325 mg Tablet 1 TAB PO ×2 (02:13→13:16)
[2023-01-23] MEDS: morphine 4 mg/mL SDV 1 mL 2 MG IVP (02:13)
[2023-01-23] MEDS: sodium chloride 0.9% 1,000 ML 100 ML IV ×2 (02:51→18:20)
[2023-01-23] MEDS: ketorolac 30 mg/mL INJ 15 MG IVP ×2 (03:47→23:12)
[2023-01-23 05:29] LABS: Basophils # 0.1 10^3/uL (0.0-0.1); Basophils % 0.4 %; Eosinophils # 0.1 10^3/uL (0.0-0.8); Eosinophils % 0.5 %; Hematocrit 36.4 % (37.0-47.0); Hemoglobin 11.9 g/dL (11.5-15.3); Lymphocytes # 1.6 10^3/uL (0.8-4.8); Lymphocytes % 9.3 %; Mean Corpuscular HGB Conc 32.7 g/dL (30.0-36.0); Mean Corpuscular Hemoglobin 29.5 pg (28.0-34.0); Mean Corpuscular Volume 90.3 fl (81-99); Mean Platelet Volume 9.3 fL (7.4-10.4); Monocytes # 0.9 10^3/uL (0.2-0.9); Monocytes % 5.2 %; Neutrophils # 14.39 10^3/uL (1.8-7.7); Neutrophils % 84.1 %; Nucleated Red Blood Cells % 0 %; Platelet Count 385 10^3/cmm (130-400); Red Blood Count 4.03 10^6/uL (4.1-5.3); White Blood Count 17.1 10^3/uL (4.0-10.0)
[2023-01-23 05:50] LABS: Albumin Level 3.1 g/dL (3.5-5.2); Anion Gap 15.1 (5-19); Blood Urea Nitrogen 16 mg/dL (8-23); Calcium 9.3 mg/dL (8.5-10.5); Carbon Dioxide 24 mmol/L (22-29); Chloride 97 mmol/L (98-107); Glucose 98 mg/dL (65-115); Magnesium 1.7 mg/dL (1.7-2.3); Phosphorus 2.7 mg/dL (2.5-4.5); Potassium 4.1 mmol/L (3.5-5.1); Sodium 132 mmol/L (136-145)
--- NOTE | 2023-01-23 08:01 | PC.OT ---
OT EVALUATION ORDERS RECEIVED. PATIENT ON HOLD TODAY DUE TO SURGERY SCHEDULED TODAY
--- NOTE | 2023-01-23 08:23 | P.ANESASSM_ITS ---
Pre-Anesthetic Assessment Height/Weight: Height 1.57 m Weight 42.184 kg Temp Pulse Resp BP Pulse Ox O2 Del Method O2 Flow Rate 98 F 118 H 18 121/73 92 Nasal Cannula 2 01/23/23 08:15 01/23/23 08:15 01/23/23 08:15 01/23/23 08:15 01/23/23 08:15 01/23/23 08:15 01/23/23 08:15 Preop Diagnosis: Thoracic compression fracture Operation Date: 01/23/23 09:25 Proposed Procedures p Kyphoplasty(Not Applicable) - Олег Walsh, DO Familial anesthetic complications: none Was Beta Armani taken within 24 hours: N/A Was Clonidine taken within 24 hours: N/A Last Intake: 22:00 Social No alcohol and No tobacco Exam alert, oriented x 3, clear to auscultation bilaterally and regular rate & rhythm Airway Submandibular: within normal limits Cervical ROM: within normal limits Mallampati: Class II Dentition: false Pulmonary Asthma, Cough (yellow) and Exertional Dyspnea seasonal allergies CV/HEM None reported None reported Hepatic None reported GI None reported Metabolic None reported Musc/skel Lower Back Pain and Osteoarthritis/DJD Neuropsych None reported Anesthetic Plan ASA status: 2 Anesthesia: General Risk of > 500 ml blood loss (7ml/kg in children): No Medications/Allergies Home Medications Medication Instructions Recorded Confirmed Last Taken Type albuterol sulfate 90 mcg/actuation 2 puff inhalation Q4H PRN 04/17/22 01/22/23 Unknown History aerosol inhaler Shortness Of Breath acetaminophen 500 mg tablet 500 mg PO Q6H PRN Pain 01/22/23 01/22/23 Unknown History cetirizine 10 mg tablet 10 mg PO BEDTIME 01/22/23 01/22/23 Unknown History dextromethorphan-guaifenesin 5 10 ml PO DAILY PRN Congestion 01/22/23 01/22/23 Unknown History mg-100 mg/5 mL oral liquid (Mucinex Fast-Max DM Max) lorazepam 1 mg tablet 0.5 - 1 mg PO DAILY PRN Anxiety 01/22/23 01/22/23 Unknown History montelukast 10 mg tablet 10 mg PO DAILY PRN Allergy Symptoms 01/22/23 01/22/23 Unknown History Allergies Allergy/AdvReac Type Severity Reaction Status Date / Time meperidine [From Demerol] Allergy ADR-Halluci Verified 01/22/23 13:01 nating Current Medications Generic Name Dose Route Start Last Admin Trade Name Freq PRN Reason Stop Dose Admin Hydrocodone Bitart/Acetaminophen 1 tab 01/22/23 15:07 01/23/23 02:13 Hydrocodone-Acetaminophen 5-325 Mg Tablet PO 1 tab Q4H PRN Administration MODERATE PAIN Cetirizine HCl 10 mg 01/22/23 21:00 01/22/23 21:01 Cetirizine 10 Mg Tablet PO 10 mg BEDTIME BENITA Administration Ceftriaxone Sodium 1,000 mg/ 50 mls @ 100 mls/hr 01/22/23 16:00 01/22/23 18:32 Sodium Chloride IV Infused Q24H BENITA Infusion Protocol Sodium Chloride 1,000 mls @ 100 mls/hr 01/22/23 16:52 01/23/23 02:51 Sodium Chloride 0.9% IV 100 mls/hr .Q10H BENITA Administration Ketorolac Tromethamine 15 mg 01/22/23 16:52 01/23/23 03:47 Ketorolac 30 Mg/Ml Inj IVP 01/27/23 16:51 15 mg Q6H PRN Administration SEVERE PAIN Lorazepam 0.5 mg 01/22/23 16:52 01/22/23 19:29 Lorazepam 1 Mg Tablet PO 0.5 mg TID PRN Administration Anxiety Morphine Sulfate 2 mg 01/22/23 16:52 01/23/23 02:13 Morphine 4 Mg/Ml Sdv 1 Ml IVP 2 mg Q4H PRN Administration SEVERE PAIN Senna 17.2 mg 01/22/23 21:00 01/22/23 21:01 Sennosides 8.6 Mg Tablet PO 17.2 mg BEDTIME BENITA Administration PFSH Anesthesia Medical History Allergic rhinitis COVID Pneumonia Surgical History H/O section History of abdominal surgery Family History Father Myocardial infarction Family/Other Breast cancer Social History Smoking and tobacco status: never smoked Alcohol intake: never Substance/Drug Use: never Data Anesthesia 01/23/23 05:00 01/23/23 05:00 Short CBC 01/22/23 01/23/23 Range/Units 12:27 05:00 WBC 15.4 H 17.1 H (4.0-10.0) 10^3/uL Hgb 12.3 11.9 (11.5-15.3) g/dL Hct 37.8 36.4 L (37.0-47.0) % MCV 91.3 90.3 (81-99) fl Plt Count 398 385 (130-400) 10^3/cmm Neut % (Auto) 79.7 84.1 % Neut # (Auto) 12.31 H 14.39 H (1.8-7.7) 10^3/uL BMP 01/22/23 01/23/23 12:27 05:00 Sodium 131 L 132 L Potassium 4.1 4.1 Chloride 94 L 97 L Carbon Dioxide 26 24 BUN 24 H 16 Creatinine 0.9 0.8 Glucose 106 98 Calcium 9.8 9.3 Liver Function 01/22/23 01/23/23 Range/Units 12:27 05:00 Total Bilirubin 0.5 (0.15-1.2) mg/dL AST 25 (0-32) U/L ALT 11 (0-33) U/L Alkaline Phosphatase 77 (35-105) U/L Albumin 3.5 3.1 L (3.5-5.2) g/dL Urine 01/22/23 Range/Units 13:09 Urine Color Yellow (Yellow) Urine Appearance Clear (CLEAR) Urine pH 6 (5-7) Ur Specific [place] 1.010 (1.005-1.030) Urine Protein Neg (Negative) Urine Glucose (UA) Norm (Normal) Urine Ketones Negative (Negative) Urine Nitrate Negative (Negative) Urine Bilirubin Neg (Negative) Ur Leukocyte Esterase Negative (Negative) Coags 01/22/23 12:27 C-Reactive Protein 45.4 H Microbiology 01/22/23 13:09 Bacterial Antigens - Final Urine,Clean Catch 01/22/23 13:09 Legionella Urinary Antigen - Final Urine,Clean Catch Cardiac Studies: No Data to Display
--- NOTE | 2023-01-23 08:30 | W.PM.OPSUD ---
Surgery/Procedure H&P Update DATE OF PROCEDURE: January 23, 2023 DATE H&P PERFORMED: 01/22/23 H&P UPDATE INFORMATION: I have reviewed H&P completed within last 30 days, I have examined patient prior to procedure and No changes to prior documentation PREOP DIAGNOSIS: Thoracic compression fracture PLANNED PROCEDURE: Operation Date: 01/23/23 09:25 Proposed Procedures p Kyphoplasty(Not Applicable) - Олег Walsh DO
[2023-01-23] MEDS: sodium chloride 0.9% 1,000 ML 30 ML IV (08:40)
[2023-01-23] MEDS: ceFAZolin 2,000 MG in sodium chloride 0.9% (plus) 50 ML 100 MG IV ×2 (09:02→17:21)
[2023-01-23] MEDS: lidocaine-epi 1% 20 mL INJ 10 ML INJECTION (09:30)
--- NOTE | 2023-01-23 10:01 | XR_ITS ---
WS: [id number] Exam: XR lumbar spine 2-3V* [id number] Date/Time of Exam: 01/23/2023 10:02 AM Reason For Exam: OR PICS Intraoperative C-arm images of the thoracolumbar junction obtained in the lateral and AP projections. The images depict vertebral plasty involving a compression fracture of the the upper plate of T12. No obvious complications based on this limited series.
--- NOTE | 2023-01-23 10:02 | P.OP_ITS ---
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 All areas impingement well-padded. Biplanar C-arm was brought in to identify the T12 compression fracture. Once is lined up patient was then prepped and draped normal sterile fashion. Skin incision was made over the left lateral pedicle. The awl was inserted. This was done going through the pedicle. Once this was in to the appropriate position through the pedicle and into the vertebral body. Was removed the drill was then placed through the 2 going into the center position of the vertebral body on the AP view. And to the center edge of the anterior vertebral wall. The drill was then pulled. A balloon was then inflated and this vertebral body. Balloon was then pulled up. And then the cement was injected into this. Had good spread across the fracture. AP lateral fluoroscopy ensured that the cement was in good position tube was pulled and AP lateral fluoroscopy again ensured that there was no leakage of cement. 1 stitch was placed in the incision and the sterile dressing was applied and patient was transferred to the PACU in stable condition.
[2023-01-23] MEDS: albuterol 2.5 mg/3 mL Neb (10:07)
--- NOTE | 2023-01-23 10:08 | SUR.OPER ---
RT at bedside assessing and treating with nebulizer treatment
--- NOTE | 2023-01-23 14:59 | ANE.PACU2 ---
Inpatient post-anesthesia follow up: Airway intact: Yes Vital signs: Temperature 97.3 F Pulse Rate 84 Respiratory Rate 15 Blood Pressure 88/43 Pulse Oximetry 98 Oxygen Delivery Me thod Simple Mask Oxygen Flow Rate 6 Fraction of Inspir ed Oxygen Hydration adequate: Yes Nausea and vomiting: No Pain level: 3 Mental status: Baseline
--- NOTE | 2023-01-23 16:01 | P.PN_ITS ---
Subjective Subjective: Patient seen postoperatively. She reports her pain is well controlled. Medications: Reviewed: Yes Vitals/I&O/Wt Last Vital Signs Temp 97.6 F 01/23/23 15:30 Pulse 86 01/23/23 15:30 Resp 16 01/23/23 15:30 BP 94/59 01/23/23 15:30 Pulse Ox 98 01/23/23 15:30 O2 Del Method Nasal Cannula 01/23/23 15:30 O2 Flow Rate 6 01/23/23 10:52 01/23/23 01/23/23 01/23/23 06:59 14:59 22:59 Intake Total 916.667 / 2256.667 1604 / 1604 Output Total 600 / 1250 5 Balance 316.667 / 6908.010 6587 / 1599 Weight last 48 hrs Weight 42.184 kg Weight 42.184 kg Physical Exam Narrative: General: Patient is awake. Patient lying in bed. Head: Normocephalic. Atraumatic. EOM intact. Neck: No JVD. Cardiovascular: RRR. No gallops. No murmurs. No peripheral edema. Lungs: Faint rales in right lung base. Left lung clear. No use of accessory muscles, no crackles or wheezes. Cough is present. Skin: No jaundice. No rashes. Abdomen: Normal bowel sounds, abdomen soft and nontender. Genito Urinary: Genital exam not performed since complaints not related. Rectal: Rectal exam not performed since no symptoms indicated blood loss. Back: Back exam deferred due to severe pain. Extremities: No cyanosis or clubbing. Musculoskeletal: No swollen or erythematous joints. Neurological: Moves all 4 extremities. No myoclonus. Urinary Catheter Management: Roche: Cath Placed During This Visit: no Reason for Continuing Indwelling Catheter: Required Immobilization for Trauma or Surgery or Anesthesia Data 01/23/23 05:00 01/23/23 05:00 Micro: Microbiology 01/22/23 13:09 Bacterial Antigens - Final Urine,Clean Catch 01/22/23 13:09 Legionella Urinary Antigen - Final Urine,Clean Catch A&P Assessment and plan (1) T12 vertebral fracture: Acute T12 fracture secondary to mechanical fall Status post kyphoplasty on 01/23 Multimodal pain control Start therapy (2) Right lower lobe pneumonia: Follow-up infection labs Continue ceftriaxone (01/22-P) Continue azithromycin (01/22-P) Consider pulmonary referral Bronchodialator protocol (3) Fall: Denies LOC Head and cervical neck CT scan reviewed, negative for acute findings Multimodal pain control Fall precautions (4) Hyponatremia: Hypovolemic hyponatremia Na 132 Continue to monitor (5) Leukocytosis: Either 2/2 PNA versus stress induced CAP w/u as above Trend (6) Allergic rhinitis: Continue Zyrtec Continue Montelukast Plan DVT ppx: SCD Code Status: DNR Attestations Medical Necessity Statement*: Patient requires ongoing hospitalization for IV antibiotics, supplemental o xygen, therapy, postop care, and supportive care. Coding Level [facility] T[facility] fracture S22.089A Right lower lobe pneumonia J18.9 Fall W19.XXXA Hyponatremia E87.1 Leukocytosis D72.829 Allergic rhinitis J30.9
[2023-01-23] MEDS: cefTRIAXone 1,000 MG in sodium chloride 0.9% (plus) 50 ML 100 MG IV (16:28)
[2023-01-23] MEDS: docusate sodium 100 mg Capsule PO (18:20)
[2023-01-23] MEDS: cetirizine 10 mg Tablet PO (20:13)
[2023-01-23] MEDS: LORazepam 1 mg Tablet 0.5 MG PO (22:57)
[2023-01-24] VITALS (9 sets, daily range): BP systolic 80–114; BP diastolic 50–74; PULSE 73–127; RESP 15–28; TEMP 36.4–37.1; O2SAT 88–98
[2023-01-24] MEDS: ceFAZolin 2,000 MG in sodium chloride 0.9% (plus) 50 ML 100 MG IV ×2 (01:56→08:58)
[2023-01-24] MEDS: sodium chloride 0.9% 1,000 ML 100 ML IV ×2 (01:57→16:18)
[2023-01-24 05:05] LABS: Basophils % 0.1 %; Eosinophils % 0.1 %; Hematocrit 32.7 % (37.0-47.0); Hemoglobin 10.5 g/dL (11.5-15.3); Lymphocytes # 1.7 10^3/uL (0.8-4.8); Lymphocytes % 10.2 %; Mean Corpuscular HGB Conc 32.1 g/dL (30.0-36.0); Mean Corpuscular Hemoglobin 29.9 pg (28.0-34.0); Mean Corpuscular Volume 93.2 fl (81-99); Mean Platelet Volume 9.4 fL (7.4-10.4); Monocytes # 0.9 10^3/uL (0.2-0.9); Monocytes % 5.3 %; Neutrophils # 13.96 10^3/uL (1.8-7.7); Neutrophils % 83.6 %; Nucleated Red Blood Cells % 0 %; Platelet Count 309 10^3/cmm (130-400); Red Blood Count 3.51 10^6/uL (4.1-5.3); Red Cell Distribution Width 13.2 % (12.1-15.1); White Blood Count 16.7 10^3/uL (4.0-10.0)
[2023-01-24 05:27] LABS: Albumin Level 2.7 g/dL (3.5-5.2); Blood Urea Nitrogen 20 mg/dL (8-23); Calcium 8.8 mg/dL (8.5-10.5); Carbon Dioxide 21 mmol/L (22-29); Chloride 98 mmol/L (98-107); Glucose 124 mg/dL (65-115); Magnesium 1.8 mg/dL (1.7-2.3); Phosphorus 2.6 mg/dL (2.5-4.5); Sodium 128 mmol/L (136-145)
[2023-01-24 05:30] LABS: Anion Gap 13.5 (5-19); Potassium 4.5 mmol/L (3.5-5.1)
--- NOTE | 2023-01-24 07:09 | PM.PN ---
Subjective Subjective: POD 1 Patient resting comfortably. States has significant improvement of her back pain. She has been coughing a fair amount. Which does elicit some back pain. She denies any shortness of breath, chest pain, headaches. Vitals/I&O/Wt Last Vital Signs Temp 97.6 F 01/24/23 04:00 Pulse 84 01/24/23 04:00 Resp 15 01/24/23 04:00 BP 113/74 01/24/23 04:00 Pulse Ox 98 01/24/23 04:00 O2 Del Method Room Air 01/24/23 04:00 O2 Flow Rate 3 01/23/23 23:23 01/23/23 01/24/23 01/24/23 22:59 06:59 14:59 Intake Total 580 / 2184 1311.667 / 3495.667 Output Total 850 / 855 500 / 1355 Balance -270 / 1329 811.667 / 2140.667 Weight last 48 hrs Weight 93 lb Weight 93 lb Physical Exam Narrative: Patient presents alert and oriented x3 with a good general appearance normal mood and affect. Normal coordination normal stability. Mild tenderness around the incisional site with the incision appear to be lean and dry. No signs of erythema or drainage. No signs of infection. Patient denies any fevers or chills. 5/5 motor strength both lower extremities with negative straight leg raise bilaterally. Calves are supple no medial thigh tenderness. Pulses are 2+ at the dorsalis pedis and posterior tibial region. Good capillary refill throughout normal sensation light touch both lower extremities. Urinary Catheter Management: Roche: Cath Placed During This Visit: no Reason for Continuing Indwelling Catheter: Other Data 01/24/23 04:43 01/24/23 04:43 Micro: Microbiology 01/22/23 13:09 Bacterial Antigens - Final Urine,Clean Catch A&P Assessment and plan (1) Traumatic compression fracture of T12 thoracic vertebra: Encouraged her to continue incentive spirometry for pulmonary toilet. Continue SCDs for mechanical DVT prophylaxis while in the hospital. From orthopedic standpoint okay to discharge home when medically stable. Instructed no bending lifting or twisting activities. Continue walking program we will see her back in the office in 1 week's time for a wound check. She would like tramadol for pain control. Attestations Medical Necessity Statement*: Defer to medical team Coding Level of Care Code Acute Code for Chg Fwd Diagnoses Traumatic compression fracture of T12 thoracic vertebra S22.080A
[2023-01-24] MEDS: azithromycin 250 mg Tablet 500 MG PO (08:49)
[2023-01-24] MEDS: docusate sodium 100 mg Capsule PO ×2 (08:50→18:06)
[2023-01-24] MEDS: LORazepam 1 mg Tablet 0.5 MG PO ×2 (10:28→16:49)
[2023-01-24] MEDS: albuterol 2.5 mg/3 mL Neb INHALATION (10:42)
--- NOTE | 2023-01-24 14:17 | P.CONIM_ITS ---
Providers/Reason For Consult Consulting Physician/Specialty*: Andrew Stokes MD, [facility]pulmonary critical care Reason for Consult*: Hypoxic respiratory failure in patient with underlying emphysema and pulmonary fibrosis Requesting Physician: Manjinder Russell MD Attending Physician: Manjinder Russell MD Primary Care Provider: Eber Albarran MD History of Present Illness History of Present Illness Karen Hernandes is a 82 year old female with past medical history of combined pulmonary emphysema, chronic ex-smoker presented to ER on 01/22/2023 for low back pain. She reported to the admitting physician that she got dizzy in the kitchen and fell. After falling she had severe low back pain. She also endorsed a worsening chronic cough. Imaging showed T12 vertebral fracture due to mechanical fall-She underwent T12 kyphoplasty on 01/23/2023 Patient had a right-sided infiltrate on chest [id number] on Rocephin and azithromycin Today's postop day 2-patient was doing good until today morning she was satura ting 98% on room air but later she had an episode of desaturation and since then she has been requiring at least 6 L supplemental oxygen. ABG on 3 L showed PaO2 45. Due to sudden requirement of supplemental oxygen-pulmonary was consulted. Her heart rate has been high-around 120 bpm Upon review of patient's previous CT scan in 2019-it appears patient has significant bibasilar pulmonary fibrosis predominantly in the right lower lobe. Patient's daughter reported that she had 4 episodes of pneumonia between 2003- 2013. She also had a ED visit 04/17/2022 for shortness of breath and her COVID antigen was positive at that time. She was discharged with Paxlovid as outpatient. She did well after that. Daughter informed patient has smoked cigarettes up to 1980s for about 20 years. She states that she lives alone and performs her own ADLs prior to admission.? Family is next door and can help if needed. She had occasional shortness of breath on exertion but never required supplemental oxygen. Denied any significant dust exposure or occupational exposures. Denied any bilateral hand joint stiffness or rash. Patient expressed her wishes that she does not want intubation or resuscitation. Her daughter at bedside also agreed with her decision. Review of Systems General: Reports: 10 or more systems reviewed and unremarkable except in HPI and below Medications/Allergies Home Medications Medication Instructions Recorded Confirmed Last Taken Type albuterol sulfate 90 mcg/actuation 2 puff inhalation Q4H PRN 04/17/22 01/22/23 Unknown History aerosol inhaler Shortness Of Breath acetaminophen 500 mg tablet 500 mg PO Q6H PRN Pain 01/22/23 01/22/23 Unknown History cetirizine 10 mg tablet 10 mg PO BEDTIME 01/22/23 01/22/23 Unknown History dextromethorphan-guaifenesin 5 10 ml PO DAILY PRN Congestion 01/22/23 01/22/23 Unknown History mg-100 mg/5 mL oral liquid (Mucinex Fast-Max DM Max) lorazepam 1 mg tablet 0.5 - 1 mg PO DAILY PRN Anxiety 01/22/23 01/22/23 Unknown History montelukast 10 mg tablet 10 mg PO DAILY PRN Allergy Symptoms 01/22/23 01/22/23 Unknown History Allergies Allergy/AdvReac Type Severity Reaction Status Date / Time meperidine [From Demerol] Allergy ADR-Halluci Verified 01/22/23 13:01 nating Current Medications Generic Name Dose Route Start Last Admin Trade Name Freq PRN Reason Stop Dose Admin Hydrocodone Bitart/Acetaminophen 1 tab 01/22/23 15:07 01/23/23 13:16 Hydrocodone-Acetaminophen 5-325 Mg Tablet PO 1 tab Q4H PRN Administration MODERATE PAIN Albuterol Sulfate 2.5 mg 01/22/23 15:59 01/24/23 10:42 Albuterol 2.5 Mg/3 Ml Neb INHALATION 2.5 mg Q4H.RESPIRATORY PRN Administration SHORTNESS OF BREATH Azithromycin 500 mg 01/23/23 09:00 01/24/23 08:49 Azithromycin 250 Mg Tablet PO 500 mg DAILY BENITA Administration Protocol Cetirizine HCl 10 mg 01/22/23 21:00 01/23/23 20:13 Cetirizine 10 Mg Tablet PO 10 mg BEDTIME BENITA Administration Docusate Sodium 100 mg 01/23/23 18:00 01/24/23 08:50 Docusate Sodium 100 Mg Capsule PO 100 mg BID BENITA Administration Ceftriaxone Sodium 1,000 mg/ 50 mls @ 100 mls/hr 01/22/23 16:00 01/23/23 16:58 Sodium Chloride IV Infused Q24H BENITA Infusion Protocol Sodium Chloride 1,000 mls @ 100 mls/hr 01/22/23 16:52 01/24/23 11:47 Sodium Chloride 0.9% IV Infused .Q10H BENITA Infusion Ketorolac Tromethamine 15 mg 01/22/23 16:52 01/23/23 23:12 Ketorolac 30 Mg/Ml Inj IVP 01/27/23 16:51 15 mg Q6H PRN Administration SEVERE PAIN Lorazepam 0.5 mg 01/22/23 16:52 01/24/23 10:28 Lorazepam 1 Mg Tablet PO 0.5 mg TID PRN Administration Anxiety Morphine Sulfate 2 mg 01/22/23 16:52 01/23/23 02:13 Morphine 4 Mg/Ml Sdv 1 Ml IVP 2 mg Q4H PRN Administration SEVERE PAIN Senna 17.2 mg 01/22/23 21:00 01/23/23 20:14 Sennosides 8.6 Mg Tablet PO Not Given BEDTIME BENITA PFSH Acute PFSH: Medical History Allergic rhinitis COVID Pneumonia Surgical History H/O section History of abdominal surgery Family History Father Myocardial infarction Family/Other Breast cancer Social History Smoking and tobacco status: never smoked Alcohol intake: never Substance/Drug Use: never Vitals/I&O/Wt Last Vital Signs Temp 98.8 F 01/24/23 12:05 Pulse 125 H 01/24/23 12:05 Resp 18 01/24/23 12:05 BP 80/50 01/24/23 12:05 Pulse Ox 98 01/24/23 12:05 O2 Del Method Room Air 01/24/23 12:05 O2 Flow Rate 10 01/24/23 10:49 01/23/23 01/24/23 01/24/23 22:59 06:59 14:59 Intake Total 580 / 2184 1311.667 / 3495.667 1240 / 1240 Output Total 850 / 855 500 / 1355 Balance -270 / 1329 811.667 / 2140.667 1240 / 1240 Weight last 48 hrs Weight 93 lb Physical Exam Narrative: General: alert, in mild to moderate respiratory distress HEENT: conj clear, EOMI, PERRL, mmm, Neck: supple, no meningismus Heme: no cervical LAP Respiratory: Inspection: No visible deformity of the chest wall Palpation: Trachea is mildly deviated to the right, bilateral symmetric expansion Percussion: Bilateral tympanic percussion note both anterior and posteriorly Auscultation: Bibasilar inspiratory coarse crackles Cardiovascular: rrr, nl s1s2, no mrg Abdomen: soft, nt, nd, no r/g, bs+ Extremities: pulses +, no edema, no c/c : no CVA tenderness Skin: intact, no rash MSK: no back or neck pain Neurologic: grossly intact Urinary Catheter Management: Roche: Cath Placed During This Visit: no Reason for Continuing Indwelling Catheter: Other Data 01/24/23 04:43 01/24/23 04:43 Other Labs: Radiology Impressions Lumbar Spine CT 01/22/23 12:00 IMPRESSION: 1. Acute compression fracture T12 superior endplate with loss of approximately 25% vertebral body height. Minimal retropulsion with slight effacement of ventral thecal sac and mild central canal stenosis. 2. Moderate central canal stenosis L3-L4 due to grade 1 anterolisthesis in com bination with facet arthropathy ligamentum flavum hypertrophy. 3. Mild central canal stenosis L4-L5. Notified Rodo Alexander DO at 01/22/2023 1:19 PM. Chest X-Ray 01/22/23 13:25 IMPRESSION: 1. Consolidating infiltrates in the right lower lobe suspicious for pneumonia. 2. Superimposed chronic changes and widespread changes of honeycombing and emphysema noted. Cervical Spine CT 01/22/23 13:26 IMPRESSION: No evidence of acute fracture or dislocation. Head CT 01/22/23 13:26 IMPRESSION: 1. No evidence of intracranial hemorrhage or mass effect. 2. Moderate small vessel changes moderate parenchymal volume loss. 3. Vascular calcification. 4. No acute intracranial findings. Thoracic Spine MRI 01/22/23 17:27 IMPRESSION: Acute compression fracture of T12 vertebral body. No spinal canal compromise. Additional details as above. Chest CTA 01/24/23 15:04 IMPRESSION: 1. No evidence of pulmonary embolus. 2. Chronic emphysematous changes with interstitial fibrosis similar to the prior examinations. 3. Small bilateral pleural effusions with fluid and airspace infiltrates in the RIGHT lower lobe and RIGHT middle lobe. Correlation for pneumonia versus cardiogenic pulmonary edema 4. Reflux into the hepatic veins can be seen with RIGHT heart dysfunction. 5. Prior cholecystectomy. 6. Aberrant RIGHT subclavian artery. Laboratory Results WBC 16.7 10^3/uL (4.0-10.0) H 01/24/23 04:43 RBC 3.51 10^6/uL (4.1-5.3) L 01/24/23 04:43 Hgb 10.5 g/dL (11.5-15.3) L 01/24/23 04:43 Hct 32.7 % (37.0-47.0) L 01/24/23 04:43 MCV 93.2 fl (81-99) 01/24/23 04:43 MCH 29.9 pg (28.0-34.0) 01/24/23 04:43 MCHC 32.1 g/dL (30.0-36.0) 01/24/23 04:43 RDW 13.2 % (12.1-15.1) 01/24/23 04:43 Plt Count 309 10^3/cmm (130-400) 01/24/23 04:43 MPV 9.4 fL (7.4-10.4) 01/24/23 04:43 Neut % (Auto) 83.6 % 01/24/23 04:43 Lymph % (Auto) 10.2 % 01/24/23 04:43 [place] % (Auto) 5.3 % 01/24/23 04:43 Eos % (Auto) 0.1 % 01/24/23 04:43 Baso % (Auto) 0.1 % 01/24/23 04:43 Neut # (Auto) 13.96 10^3/uL (1.8-7.7) H 01/24/23 04:43 Lymph # (Auto) 1.7 10^3/uL (0.8-4.8) 01/24/23 04:43 [place] # (Auto) 0.9 10^3/uL (0.2-0.9) 01/24/23 04:43 Eos # (Auto) 0.0 10^3/uL (0.0-0.8) 01/24/23 04:43 Baso # (Auto) 0.0 10^3/uL (0.0-0.1) 01/24/23 04:43 Nucleated RBC % (auto) 0 % 01/24/23 04:43 Nucleated RBCs # 0.0 /100WBC 01/24/23 04:43 Specimen Type Arterial 01/24/23 16:08 Sample Site Radial, right 01/24/23 16:08 ABG pH 7.43 (7.35-7.45) 01/24/23 16:08 ABG pCO2 31.1 mmHg (35-45) L 01/24/23 16:08 ABG pO2 45.2 mmHg (80.0-100.0) L 01/24/23 16:08 ABG HCO3 20.4 mmol/L (22-26) L 01/24/23 16:08 ABG O2 Saturation 85.2 01/24/23 16:08 ABG Base Excess -3.2 mmol/L (-2.0-2.0) L 01/24/23 16:08 Alejo Test Pos 01/24/23 16:08 A-a O2 Gradient 18.4 mmHg (5-10) H 01/24/23 16:08 Hematocrit 34.4 % (37-47) L 01/24/23 16:08 Hgb O2 Saturation 83.7 % (95-100) L 01/24/23 16:08 Carboxyhemoglobin 1.3 %THgb (0.4-20.1) 01/24/23 16:08 Methemoglobin 0.5 % (0.4-1.5) 01/24/23 16:08 Total Hemoglobin 11.2 g/dL (12-16) L 01/24/23 16:08 Sodium 132.0 mmol/L (131-143) 01/24/23 16:08 Potassium 3.8 mmol/L (3.5-5.0) 01/24/23 16:08 Glucose 131.0 mg/dL (70-115) H 01/24/23 16:08 Ionized Calcium 1.3 mmol/L (1.1-1.4) 01/24/23 16:08 O2 Delivery Device Nc 01/24/23 16:08 O2 Liters/Min 3.0 % 01/24/23 16:08 FiO2 32.0 % 01/24/23 16:08 Project Development Manager ID [email or web address] 01/24/23 16:08 Sodium 128 mmol/L (136-145) L 01/24/23 04:43 Potassium 4.5 mmol/L (3.5-5.1) 01/24/23 04:43 Chloride 98 mmol/L (98-107) 01/24/23 04:43 Carbon Dioxide 21 mmol/L (22-29) L 01/24/23 04:43 Anion Gap 13.5 (5-19) 01/24/23 04:43 BUN 20 mg/dL (8-23) 01/24/23 04:43 Creatinine 0.8 mg/dL (0.5-0.9) 01/24/23 04:43 GFR Calculation Not Reportable 01/24/23 04:43 Glucose 124 mg/dL (65-115) H 01/24/23 04:43 Calculated Osmolality 276 mOsm/kg (285-295) L 01/22/23 12:27 Calcium 8.8 mg/dL (8.5-10.5) 01/24/23 04:43 Phosphorus 2.6 mg/dL (2.5-4.5) 01/24/23 04:43 Magnesium 1.8 mg/dL (1.7-2.3) 01/24/23 04:43 Total Bilirubin 0.5 mg/dL (0.15-1.2) 01/22/23 12: AST 25 U/L (0-32) 01/22/23 12: ALT 11 U/L (0-33) 01/22/23 12:27 Alkaline Phosphatase 77 U/L (35-105) 01/22/23 12:27 C-Reactive Protein 45.4 mg/L (0.0-4.9) H 01/22/23 12:27 Total Protein 8.5 g/dL (6.6-8.7) 01/22/23 12: Albumin 2.7 g/dL (3.5-5.2) L 01/24/23 04:43 Globulin 5.0 g/dL (1.3-4.6) H 01/22/23 12:27 Procalcitonin 0.12 ng/mL (0-0.5) 01/22/23 12:27 Urine Color Yellow (Yellow) 01/22/23 13:09 Urine Appearance Clear (CLEAR) 01/22/23 13:09 Urine pH 6 (5-7) 01/22/23 13:09 Ur Specific [place] 1.010 (1.005-1.030) 01/22/23 13:09 Urine Protein Neg (Negative) 01/22/23 13:09 Urine Glucose (UA) Norm (Normal) 01/22/23 13:09 Urine Ketones Negative (Negative) 01/22/23 13:09 Urine Blood Neg (Negative) 01/22/23 13:09 Urine Nitrate Negative (Negative) 01/22/23 13:09 Urine Bilirubin Neg (Negative) 01/22/23 13:09 Urine Urobilinogen Norm mg/dL (Negative) 01/22/23 13:09 Ur Leukocyte Esterase Negative (Negative) 01/22/23 13:09 A&P Assessment and plan (1) Sepsis with acute hypoxic respiratory failure: Patient was on room air until today morning-currently requiring 6 L supplemental oxygen On 3 L supplemental oxygen-ABG showed pH 7.43/PCO2 31/PaO2 45/bicarb 20/saturation 85%-increased supplemental oxygen to 6 L CTA did not show any evidence of pulmonary embolism. Showed background chronic emphysema with interstitial fibrosis and small bilateral effusions with predominant fluid and airspace infiltrates in right lower lobe and middle lobe. Suspicious for pneumonia. Also there is reflux into hepatic veins-possibly secondary to right heart dysfunction-I have ordered echocardiogram to check for RV and LV function; possible patient may have underlying undiagnosed pulmonary hypertension given chronic emphysema and interstitial fibrosis. Also ordered Lasix 40 Mg daily to unload RV She is on Rocephin and azithromycin for right lower lobe pneumonia Started on p.o. prednisone 40 mg twice daily for ILD exacerbation-we will gradually taper down based on response (2) Right lower lobe pneumonia: Imaging suggestive of right lower lobe pneumonia Currently she is receiving Rocephin and azithromycin for right lower lobe pneumonia (3) Pulmonary emphysema with fibrosis of lung: Patient never had PFTs as outpatient According to daughter patient has smoked for over 20 years and quit in 1980s She may have a component of undiagnosed pulmonary hypertension given her underlying interstitial lung disease as well as emphysema-ordered echo, BNP, Lasix 40 Mg daily Agree with nebulization every 6 hours scheduled (4) Traumatic compression fracture of T12 thoracic vertebra: Patient underwent T12 kyphoplasty on 01/23/2023 (5) Sinus tachycardia: Patient heart rate in 120s since morning after she started having hypoxia CTA ruled out PE; most probably secondary to sepsis-ordered EKG concern if RV dysfunction is contributing-we will unload RV with Lasix 40 Mg daily, obtain echocardiogram-we will transfer her to [facility]; started on metoprolol 25 Mg twice daily Patient refused resuscitation and intubation. Consult Attestations Medical Necessity Statement: Need close monitoring for oxygen saturation as well as cardiac monitoring in [facility] for at least 24-40 Time Spent in Patient Care: Greater than 35 minutes (>than 50% of time spent in counselling and/or direct pt care on unit) . Critical Care Time: The high probability of a clinically significant, sudden or life threatening deterioration of the patient's [cardiac and pulmonary] system(s) required my full and direct attention, intervention and personal management. The critical care time is as shown. This time is in addition to time spent performing any reported procedures but includes the following: [x] Data and vital sign review and interpretation [x] Patient assessment, examination and intervention [x] Documentation [x] Medication orders and management Critical Care Time (min): 74 Coding Level of Care Code Critical Care >/= 30 minutes Diagnoses Sepsis with acute hypoxic respiratory failure A41.9; R65.20; J96.01 Right lower lobe pneumonia J18.9 Pulmonary emphysema with fibrosis of lung J43.9; J84.10 Traumatic compression fracture of T12 thoracic vertebra S22.080A Sinus tachycardia R00.0 Time Spent (min) 74
--- NOTE | 2023-01-24 14:26 | PM.PN ---
Subjective Subjective: Patient found to be in respiratory distress. She is coughing and unable to catch her breath. She is currently on nasal canula (no prior known home oxygen needs). Daughter is bedside. Reports these episodes last up to 30 minutes at home. Patient denies fevers, chills, nausea or emesis. Medications: Reviewed: Yes Vitals/I&O/Wt Last Vital Signs Temp 98.8 F 01/24/23 12:05 Pulse 125 H 01/24/23 12:05 Resp 18 01/24/23 12:05 BP 80/50 01/24/23 12:05 Pulse Ox 98 01/24/23 12:05 O2 Del Method Room Air 01/24/23 12:05 O2 Flow Rate 10 01/24/23 10:49 01/23/23 01/24/23 01/24/23 22:59 06:59 14:59 Intake Total 580 / 2184 1311.667 / 3495.667 1240 / 1240 Output Total 850 / 855 500 / 1355 Balance -270 / 1329 811.667 / 2140.667 1240 / 1240 Weight last 48 hrs Weight 42.184 kg Physical Exam Narrative: General: Patient is awake. In moderate to severe respiratory distress with refractory cough fit Head: Normocephalic. Atraumatic. EOM intact. Neck: No JVD. Cardiovascular: RRR. No gallops. No murmurs. Lungs: Rales in right lung base. Left lung clear. Tachypnea. Using accessory muscle. Persistent coughing. On nasal canula. Skin: No jaundice. No rashes. Abdomen: Normal bowel sounds, abdomen soft and nontender. Genito Urinary: Genital exam not performed since complaints not related. Rectal: Rectal exam not performed since no symptoms indicated blood loss. Back: Back exam deferred due to severe pain. Extremities: No cyanosis or clubbing. Musculoskeletal: No swollen or erythematous joints. Neurological: Moves all 4 extremities. No myoclonus. Urinary Catheter Management: Roche: Cath Placed During This Visit: no Reason for Continuing Indwelling Catheter: Other Data 01/24/23 04:43 01/24/23 04:43 A&P Assessment and plan (1) Right lower lobe pneumonia: Patient in respiratory distress, unsafe to discharge as previously planned Procalcitonin unremarkable Continue ceftriaxone (01/22-P) Continue azithromycin (01/22-P) Bronchodialator protocol Pulmonary consultation (2) T12 vertebral fracture: Acute T12 fracture secondary to mechanical fall Status post kyphoplasty on 01/23 Patient worked well with therapy Stable for discharge from surgical standpoint, however must improve her respiratory status first (3) Fall: Fall precautions (4) Hyponatremia: Sodium worse today at 128 Continue to monitor (5) Leukocytosis: Either 2/2 PNA versus stress induced CAP w/u as above Trend (6) Allergic rhinitis: Continue Zyrtec Continue Montelukast Plan DVT ppx: SCD Code Status: DNR Attestations Medical Necessity Statement*: Patient is in respiratory distress and unsafe to discharge home requiring ongoing hospitalization for pulmonary evaluation, supplemental oxygen support, IV abx, and supportive care. Coding Level of Care Code Acute Code for [facility] Diagnoses Right lower lobe pneumonia J18.9 T12 vertebral fracture S22.089A Fall W19.XXXA Hyponatremia E87.1 Leukocytosis D72.829 Allergic rhinitis J30.9
--- NOTE | 2023-01-24 15:04 | CT_ITS ---
WS: [id number] CTA OF THE CHEST WITH PULMONARY EMBOLISM PROTOCOL TECHNIQUE: High-resolution contrast enhanced CTA of the chest with coronal and sagittal reformatted i anels with pulmonary embolism protocol. MIP images are also reviewed. CLINICAL INFORMATION: Evaluate for pulmonary embolism COMPARISON: CT 2019 DLP: 191.[address] scans at [facility] use at least one of these dose optimization techniques: automated e xposure control; mA and/or kV adjustment per patient size (includes targeted exams where dose is matc hed to clinical indication); or iterative reconstruction. FINDINGS: Proximal main pulmonary arteries are normal. Normal segmental and subsegmental pulmonary arteries. No evidence of pulmonary embolus. Aortic calcification. Slightly ectatic ascending thoracic aorta measu ring 3.5 cm unchanged. Advanced chronic emphysematous changes with interstitial fibrosis. Small LEFT greater than RIGHT pleural effusions. Airspace infiltrates and fluid in the RIGHT lower lo be and RIGHT middle lobe. Patchy airspace infiltrates in the RIGHT upper lobe. Aberrant RIGHT subclav johnny artery. A few prominent anterior mediastinal and peribronchial lymph nodes likely reactive. Diffu se body wall anasarca. Reflux into the hepatic veins can be seen with RIGHT heart dysfunction. Moderate thoracic kyphosis. P rior vertebroplasty changes T12. CT/CT angio chest PE protcl [id number] IMPRESSION: 1. No evidence of pulmonary embolus. 2. Chronic emphysematous changes with interstitial fibrosis similar to the arturo or examinations. 3. Small bilateral pleural effusions with fluid and airspace infiltrates in th e RIGHT lower lobe and RIGHT middle lobe. Correlation for pneumonia versus card iogenic pulmonary edema 4. Reflux into the hepatic veins can be seen with RIGHT heart dysfunction. 5. Prior cholecystectomy. 6. Aberrant RIGHT subclavian artery.
[2023-01-24] MEDS: iohexol 350 mg/mL 500 mL Btl (per mL) IV (15:35)
[2023-01-24] MEDS: cefTRIAXone 1,000 MG in sodium chloride 0.9% (plus) 50 ML 100 MG IV (16:18)
[2023-01-24 16:20] LABS: ABG PCO2 31.1 mmHg (35-45); ABG PH Result 7.43 (7.35-7.45); Alveolar-Arterial Oxygen Gradi 18.4 mmHg (5-10); Arterial Blood Gas Hematocrit 34.4 % (37-47); Base Excess ABG -3.2 mmol/L (-2.0-2.0); Blood Gas Allen Test Pos; Blood Gas Operator Identificat glc; Blood Gas Sample Site Radial, right; Blood Gas Sample Type Arterial; Carboxyhemoglobin 1.3 %THgb (0.4-20.1); HCO3 ABG 20.4 mmol/L (22-26); HGB O2 Sat 83.7 % (95-100); Ionized Calcium Level - ABG 1.3 mmol/L (1.1-1.4); Methemoglobin 0.5 % (0.4-1.5); Oxygen Device NC; Oxygen Saturation ABG 85.2; PO2 ABG 45.2 mmHg (80.0-100.0); Potassium Level - ABG 3.8 mmol/L (3.5-5.0); Total Hemoglobin 11.2 g/dL (12-16)
--- NOTE | 2023-01-24 17:08 | ECG_ITS ---
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 Measurements Intervals [place] Rate: 131 P: 83 WA: 167 QRS: -12 QRSD: 75 T: 85 QT: 365 QTc: 539 Interpretive Statements SINUS TACHYCARDIA LOW QRS VOLTAGE [QRS DEFLECTION < 0.5/1.0 mV IN LIMB/CHEST LEADS] ST DEVIATION AND MODERATE T-WAVE ABNORMALITY, CONSIDER LATERAL ISCHEMIA [-0.1+ mV T-WAVE IN I/aVL/V5/V6] Compared to ECG 04/17/2022 14:28:17 T-wave abnormality now present Possible ischemia now present Sinus rhythm no longer present Myocardial infarct finding no longer present Electronically Signed On 01-26-2023 16:46:03 CDT by Isabel Hardwick M.D. [id number]
[2023-01-24 18:00] LABS: NT Pro B Type Natriuretic Pept 20724 pg/mL (0-450)
[2023-01-24] MEDS: metoprolol tartrate 25 mg Tablet PO ×2 (18:06→21:49)
[2023-01-24] MEDS: ketorolac 30 mg/mL INJ 15 MG IVP (18:06)
[2023-01-24] MEDS: FUROsemide 10 mg/mL SDV 4mL 40 MG IVP (18:07)
[2023-01-24] MEDS: magnesium sulfate premix 2 GM/50 ML PIGGYBACK IV (18:16)
[2023-01-24 18:25] LABS: Troponin(5th) Baseline 355 ng/L (0-10)
[2023-01-24] MEDS: ipratropium-albuterol 3 mL Neb INHALATION (19:53)
[2023-01-24 20:14] LABS: Troponin 5 2HR 413.2 ng/L (0-10); Troponin 5 2HR Delta 58.2 ABS# (0-10)
--- NOTE | 2023-01-24 21:21 | W.PM.EVENTAC ---
Event Note Event Note: Called by nursing staff with significant troponin, with positive delta. Discussed briefly with pulmonary. I had a heparin drip, aspirin, statin. Visited with orthopedic spine surgery to confirm anticoagulation could be given in this postoperative patient. Explained thinking, concerns, and treatment plan with daughter. Ordered repeat EKG which is currently pending. Reviewed previous imaging including CTA of chest.
[2023-01-24] MEDS: sennosides 8.6 mg Tablet 17.2 MG PO (21:48)
[2023-01-24] MEDS: aspirin 325 mg Tablet PO (21:49)
[2023-01-24] MEDS: cetirizine 10 mg Tablet PO (21:49)
[2023-01-24 23:41] LABS: Troponin 5 6HR 405.3 ng/L (0-10); Troponin 5 6HR Delta 50.3 ng/L (0-12)
--- NOTE | 2023-01-24 23:52 | ECG_ITS ---
[facility] Test Date: 2023-01-24 Pat Name: Karen Hernandes Department: Room: 267 Gender: Female [employer] Liaison: : 1940 Requested By: Peng You Order Number: [id number] Alexia MD: Isabel Hardwick M.D. Measurements Intervals Archer Rate: 96 P: 59 WV: 202 QRS: 0 QRSD: 76 T: -43 QT: 382 QTc: 483 Interpretive Statements SINUS RHYTHM ST DEVIATION AND MODERATE T-WAVE ABNORMALITY, CONSIDER ANTEROLATERAL ISCHEMIA [-0.1+ mV T-WAVE IN V3-V6] Compared to ECG 01/24/2023 17:08:32 Sinus tachycardia no longer present T-wave abnormality still present Possible ischemia still present Electronically Signed On 01-26-2023 16:30:16 CDT by Isabel Hardwick M.D. [id number]
[2023-01-25] VITALS (159 sets, daily range): BP systolic 77–162; BP diastolic 48–96; PULSE 78–110; RESP 16–42; TEMP 36.4–36.9; O2SAT 66–99
[2023-01-25] MEDS: heparin 5,000 unit/mL INJ 1 mL IV ×3 (00:10→21:38)
[2023-01-25] MEDS: heparin drip 25,000 UNIT/500 ML PREMIX 11.81 UNIT IV (00:10)
[2023-01-25] MEDS: morphine 4 mg/mL SDV 1 mL 2 MG IVP (00:53)
--- NOTE | 2023-01-25 01:03 | PC.NURSE ---
Report called and patient transferred to CSU for higher level of care.
[2023-01-25] MEDS: nitroglycerin 0.4 mg sublingual Tablet SUBLINGUAL (01:04)
[2023-01-25 06:29] LABS: Basophils % 0.1 %; Hematocrit 32.7 % (37.0-47.0); Hemoglobin 10.5 g/dL (11.5-15.3); Lymphocytes # 1.5 10^3/uL (0.8-4.8); Lymphocytes % 9.7 %; Mean Corpuscular HGB Conc 32.1 g/dL (30.0-36.0); Mean Corpuscular Hemoglobin 29.5 pg (28.0-34.0); Mean Corpuscular Volume 91.9 fl (81-99); Mean Platelet Volume 9.5 fL (7.4-10.4); Monocytes # 0.9 10^3/uL (0.2-0.9); Monocytes % 5.5 %; Neutrophils # 13.11 10^3/uL (1.8-7.7); Neutrophils % 84.1 %; Nucleated Red Blood Cells % 0 %; Platelet Count 324 10^3/cmm (130-400); Red Blood Count 3.56 10^6/uL (4.1-5.3); Red Cell Distribution Width 13.3 % (12.1-15.1); White Blood Count 15.6 10^3/uL (4.0-10.0)
[2023-01-25 06:45] LABS: Partial Thromboplastin Time 42.7 SECONDS (23.9-36.7)
[2023-01-25 06:52] LABS: Anion Gap 15.5 (5-19); Blood Urea Nitrogen 17 mg/dL (8-23); Calcium 9.1 mg/dL (8.5-10.5); Carbon Dioxide 24 mmol/L (22-29); Chloride 97 mmol/L (98-107); Glucose 134 mg/dL (65-115); Phosphorus 3.7 mg/dL (2.5-4.5); Potassium 4.5 mmol/L (3.5-5.1); Sodium 132 mmol/L (136-145)
[2023-01-25] MEDS: ipratropium-albuterol 3 mL Neb INHALATION (07:45)
[2023-01-25] MEDS: azithromycin 250 mg Tablet 500 MG PO (08:58)
[2023-01-25] MEDS: docusate sodium 100 mg Capsule PO ×2 (08:58→18:01)
[2023-01-25] MEDS: metoprolol tartrate 25 mg Tablet PO ×2 (08:58→21:36)
[2023-01-25] MEDS: aspirin 325 mg Tablet PO (08:58)
--- NOTE | 2023-01-25 10:13 | P.CONIM_ITS ---
Providers/Reason For Consult Consulting Physician/Specialty*: MD SHANTELLE/Cardiology Reason for Consult*: Cheswt pain/ Elevatd TroponinI Requesting Physician: Dr Russell Attending Physician: Manjinder Russell MD Primary Care Provider: Eber Albarran MD History of Present Illness History of Present Illness Karen Hernandes is a 82 year old female, initially admitted to hospital with complaints of severe back pain following a fall at home. She sustained compression fracture of the T12. She had kyphoplasty by , 3 days ago. Yesterday she started having a severe coughing spell and went into acute hypoxic respiratory failure, requiring 6 L of oxygen by nasal cannula. She received bronchodilator treatment and IV prednisone. Her symptoms are improving at this point. She was complaining of a tight/heavy feeling in the chest yesterday. It lasted for several hours. According to the patient, she started feeling better with IV heparin. Her initial troponin T was 355. The 6-hour delta was 50. Cardiology consult is requested for further cardiac evaluation recommendations. This patient has no previous history for any coronary disease, myocardial infarction or congestive heart failure. No history for hypertension, diabetes or dyslipidemia. She has been fairly active and lives independently. She has no history for chest pain or any specific cardiac symptoms. She has a remote history of smoking abuse which she quit 40 years ago. No alcohol abuse or any other substance abuse. Her father had some congenital heart disease and in his 30s. No other known family history. Currently at the time of my examination, patient still has some tightness in the chest. She has a history of recurrent pneumonia. She also has chronic cough. She was found to have features of right lower lobe pneumonia by chest x-ray, which was confirmed with a CT of the chest. There was no evidence of any PE. She also was found to have features of emphysema and possible interstitial lung disease. She is currently being treated for pneumonia/COPD exacerbation. She has no fever or chills at this point. No abdominal pain or dysuria. Review of Systems Narrative: CONSTITUTIONAL: No fever or chills. EYES: No blurring of vision or other visual disturbances lately. ENT: No hoarseness of voice, auditory disturbances or sore throat. CARDIOVASCULAR: As mentioned above. RESPIRATORY: As mentioned above. GASTROINTESTINAL: No hematemesis or melena. GENITOURINARY: No dysuria or hematuria. INTEGUMENTARY: No skin rashes or history of skin cancer. NEURO: No transient ischemic attacks or amaurosis. PSYCHIATRIC: No history of psychosis or major depression. HEMATOLOGIC: No bleeding disorders or significant anemia. ENDOCRINE: No history of polyuria or polydipsia. MUSCULOSKELETAL: As mentioned above. ALLERGY/IMMUNOLOGY: As mentioned above. Medications/Allergies Home Medications Medication Instructions Recorded Confirmed Last Taken Type albuterol sulfate 90 mcg/actuation 2 puff inhalation Q4H PRN 04/17/22 01/22/23 Unknown History aerosol inhaler Shortness Of Breath acetaminophen 500 mg tablet 500 mg PO Q6H PRN Pain 01/22/23 01/22/23 Unknown History cetirizine 10 mg tablet 10 mg PO BEDTIME 01/22/23 01/22/23 Unknown History dextromethorphan-guaifenesin 5 10 ml PO DAILY PRN Congestion 01/22/23 01/22/23 Unknown History mg-100 mg/5 mL oral liquid (Mucinex Fast-Max DM Max) lorazepam 1 mg tablet 0.5 - 1 mg PO DAILY PRN Anxiety 01/22/23 01/22/23 Unknown History montelukast 10 mg tablet 10 mg PO DAILY PRN Allergy Symptoms 01/22/23 01/22/23 Unknown History Allergies Allergy/AdvReac Type Severity Reaction Status Date / Time meperidine [From Demerol] Allergy ADR-Halluci Verified 01/22/23 13:01 nating Current Medications Generic Name Dose Route Start Last Admin Trade Name Freq PRN Reason Stop Dose Admin Hydrocodone Bitart/Acetaminophen 1 tab 01/22/23 15:07 01/23/23 13:16 Hydrocodone-Acetaminophen 5-325 Mg Tablet PO 1 tab Q4H PRN Administration MODERATE PAIN Albuterol Sulfate 2.5 mg 01/22/23 15:59 01/24/23 10:42 Albuterol 2.5 Mg/3 Ml Neb INHALATION 2.5 mg Q4H.RESPIRATORY PRN Administration SHORTNESS OF BREATH Albuterol/Ipratropium 3 ml 01/24/23 20:00 01/25/23 07:45 Ipratropium-Albuterol 3 Ml Neb INHALATION 3 ml Q6H.RESP BENITA Administration Aspirin 325 mg 01/24/23 20:35 01/25/23 08:58 Aspirin 325 Mg Tablet PO 325 mg DAILY BENITA Administration Azithromycin 500 mg 01/23/23 09:00 01/25/23 08:58 Azithromycin 250 Mg Tablet PO 500 mg DAILY BENITA Administration Protocol Cetirizine HCl 10 mg 01/22/23 21:00 01/24/23 21:49 Cetirizine 10 Mg Tablet PO 10 mg BEDTIME BENITA Administration Docusate Sodium 100 mg 01/23/23 18:00 01/25/23 08:58 Docusate Sodium 100 Mg Capsule PO 100 mg BID BENITA Administration Furosemide 40 mg 01/24/23 17:00 01/24/23 18:07 Furosemide 10 Mg/Ml Sdv 4ml IVP 40 mg Q24H BENITA Administration Heparin Sodium (Porcine) 0 unit 01/24/23 21:08 01/25/23 07:00 Heparin 5,000 Unit/Ml Inj 1 Ml IV 2,000 unit PRN PRN Administration Heparin weight-base protocol Protocol Ceftriaxone Sodium 1,000 mg/ 50 mls @ 100 mls/hr 01/22/23 16:00 01/24/23 16:52 Sodium Chloride IV Infused Q24H BENITA Infusion Protocol Heparin Sodium/Sodium Chloride 25,000 unit in 500 mls @ 0 mls/hr 01/24/23 21:15 01/25/23 06:56 Heparin Drip IV 16 unit/kg/hr .Q0M BENITA 13.5 mls/hr Titration Protocol Per Protocol Lorazepam 0.5 mg 01/22/23 16:52 01/24/23 16:49 Lorazepam 1 Mg Tablet PO 0.5 mg TID PRN Administration Anxiety Methylprednisolone Sodium Succinate 40 mg 01/24/23 18:30 01/25/23 05:46 Methylprednisolone Sod Succ 125 Mg/2 Ml Inj IVP 40 mg Q12H BENITA Administration Metoprolol Tartrate 25 mg 01/24/23 17:30 01/25/23 08:58 Metoprolol Tartrate 25 Mg Tablet PO 25 mg BID@0900,2100 BENITA Administration Morphine Sulfate 2 mg 01/22/23 16:52 01/25/23 00:53 Morphine 4 Mg/Ml Sdv 1 Ml IVP 2 mg Q4H PRN Administration SEVERE PAIN Senna 17.2 mg 01/22/23 21:00 01/24/23 21:48 Sennosides 8.6 Mg Tablet PO 17.2 mg BEDTIME BENITA Administration PFSH Acute PFSH: Medical History Allergic rhinitis COVID Pneumonia Surgical History H/O section History of abdominal surgery Family History Father Myocardial infarction Family/Other Breast cancer Social History Smoking and tobacco status: never smoked Alcohol intake: never Substance/Drug Use: never Vitals/I&O/Wt Last Vital Signs Temp 97.9 F 01/25/23 04:00 Pulse 102 H 01/25/23 08:05 Resp 32 H 01/25/23 08:05 BP 89/59 01/25/23 08:05 Pulse Ox 93 01/25/23 08:05 O2 Del Method Nasal Cannula 01/25/23 07:55 O2 Flow Rate 5 01/25/23 07:55 01/24/23 01/25/23 01/25/23 22:59 06:59 14:59 Intake Total 780 / 2140 79.914 / 2219.914 Output Total 905 / 905 0 / 905 Balance -125 / 1235 79.914 / 1314.914 Weight last 48 hrs Weight 111 lb 6.4 oz Weight 110 lb Physical Exam Narrative: For GENERAL: The patient is alert and oriented times three. Not in any acute distress. Not in any acute distress. HEENT: No significant pallor, icterus or lymphadenopathy.Oral cavity: There are no mucous membrane lesions. NECK: Trachea appears to be central. No masses noted. No JVD or thyromegaly appreciated. RESPIRATORY: Chest is symmetrical. No intercostals muscle retraction or any accessory muscle activation. There is no chest wall tenderness. Breath sounds are heard bilaterally. Has bronchovesicular breath sounds in the right base. Scattered coarse crackles. BREASTS: Deferred. HEART: The heart sounds are normal. No S3 or S4. No significant murmurs. No pericardial rub ABDOMEN: No vessel pulsations or distention. No tenderness. No organomegaly appreciated. Bowel sounds are normally heard. : Deferred. RECTAL: Deferred. LYMPHATIC: No lymphadenopathy noted in the neck. EXTREMITIES: No edema or cyanosis. No clubbing. MUSCULOSKELETAL: No acute joint deformities or swelling SKIN: There are no significant rashes or ecchymosis NEUROPSYCHIATRIC: The patient is alert and oriented x3. Appears to be in a good mood. No tremors or rigidity noted. Urinary Catheter Management: Roche: Cath Placed During This Visit: no Reason for Continuing Indwelling Catheter: Other Data 01/26/23 03:24 01/26/23 03:24 Other Labs: Laboratory Last Values WBC 15.6 10^3/uL (4.0-10.0) H 01/25/23 06:21 RBC 3.56 10^6/uL (4.1-5.3) L 01/25/23 06:21 Hgb 10.5 g/dL (11.5-15.3) L 01/25/23 06:21 Hct 32.7 % (37.0-47.0) L 01/25/23 06:21 MCV 91.9 fl (81-99) 01/25/23 06:21 MCH 29.5 pg (28.0-34.0) 01/25/23 06:21 MCHC 32.1 g/dL (30.0-36.0) 01/25/23 06:21 RDW 13.3 % (12.1-15.1) 01/25/23 06:21 Plt Count 324 10^3/cmm (130-400) 01/25/23 06:21 MPV 9.5 fL (7.4-10.4) 01/25/23 06:21 Neut % (Auto) 84.1 % 01/25/23 06:21 Lymph % (Auto) 9.7 % 01/25/23 06:21 [place] % (Auto) 5.5 % 01/25/23 06:21 Eos % (Auto) 0.0 % 01/25/23 06:21 Baso % (Auto) 0.1 % 01/25/23 06:21 Neut # (Auto) 13.11 10^3/uL (1.8-7.7) H 01/25/23 06:21 Lymph # (Auto) 1.5 10^3/uL (0.8-4.8) 01/25/23 06:21 [place] # (Auto) 0.9 10^3/uL (0.2-0.9) 01/25/23 06:21 Eos # (Auto) 0.0 10^3/uL (0.0-0.8) 01/25/23 06:21 Baso # (Auto) 0.0 10^3/uL (0.0-0.1) 01/25/23 06:21 Nucleated RBC % (auto) 0 % 01/25/23 06:21 Nucleated RBCs # 0.0 /100WBC 01/25/23 06:21 APTT 42.7 SECONDS (23.9-36.7) H 01/25/23 06:21 Specimen Type Arterial 01/24/23 16:08 Sample Site Radial, right 01/24/23 16:08 ABG pH 7.43 (7.35-7.45) 01/24/23 16:08 ABG pCO2 31.1 mmHg (35-45) L 01/24/23 16:08 ABG pO2 45.2 mmHg (80.0-100.0) L 01/24/23 16:08 ABG HCO3 20.4 mmol/L (22-26) L 01/24/23 16:08 ABG O2 Saturation 85.2 01/24/23 16:08 ABG Base Excess -3.2 mmol/L (-2.0-2.0) L 01/24/23 16:08 Alejo Test Pos 01/24/23 16:08 A-a O2 Gradient 18.4 mmHg (5-10) H 01/24/23 16:08 Hematocrit 34.4 % (37-47) L 01/24/23 16:08 Hgb O2 Saturation 83.7 % (95-100) L 01/24/23 16:08 Carboxyhemoglobin 1.3 %THgb (0.4-20.1) 01/24/23 16:08 Methemoglobin 0.5 % (0.4-1.5) 01/24/23 16:08 Total Hemoglobin 11.2 g/dL (12-16) L 01/24/23 16:08 Sodium 132.0 mmol/L (131-143) 01/24/23 16:08 Potassium 3.8 mmol/L (3.5-5.0) 01/24/23 16:08 Glucose 131.0 mg/dL (70-115) H 01/24/23 16:08 Ionized Calcium 1.3 mmol/L (1.1-1.4) 01/24/23 16:08 O2 Delivery Device Nc 01/24/23 16:08 O2 Liters/Min 3.0 % 01/24/23 16:08 FiO2 32.0 % 01/24/23 16:08 Manager Benefit ID glc 01/24/23 16:08 Sodium 132 mmol/L (136-145) L 01/25/23 06:21 Potassium 4.5 mmol/L (3.5-5.1) 01/25/23 06:21 Chloride 97 mmol/L (98-107) L 01/25/23 06:21 Carbon Dioxide 24 mmol/L (22-29) 01/25/23 06:21 Anion Gap 15.5 (5-19) 01/25/23 06:21 BUN 17 mg/dL (8-23) 01/25/23 06:21 Creatinine 0.8 mg/dL (0.5-0.9) 01/25/23 06:21 GFR Calculation Not Reportable 01/25/23 06:21 Glucose 134 mg/dL (65-115) H 01/25/23 06:21 Calculated Osmolality 276 mOsm/kg (285-295) L 01/22/23 12:27 Calcium 9.1 mg/dL (8.5-10.5) 01/25/23 06:21 Phosphorus 3.7 mg/dL (2.5-4.5) 01/25/23 06:21 Magnesium 1.8 mg/dL (1.7-2.3) 01/24/23 04:43 Total Bilirubin 0.5 mg/dL (0.15-1.2) 01/22/23 12:27 AST 25 U/L (0-32) 01/22/23 12:27 ALT 11 U/L (0-33) 01/22/23 12:27 Alkaline Phosphatase 77 U/L (35-105) 01/22/23 12:27 Troponin T Baseline 355 ng/L (0-10) H* 01/24/23 17:15 Troponin T 120 Minute 413.2 ng/L (0-10) H 01/24/23 19:25 Delta Troponin T 58.2 ABS# (0-10) H* 01/24/23 19:25 Troponin T Hi Sens 6Hr 405.3 ng/L (0-10) H 01/24/23 23:00 Troponin T Hi Sens 6Hr Delta 50.3 ng/L (0-12) H* 01/24/23 23:00 C-Reactive Protein 45.4 mg/L (0.0-4.9) H 01/22/23 12:27 NT-Pro-B Natriuret Pep 46005 pg/mL (0-450) H 01/24/23 17:15 Total Protein 8.5 g/dL (6.6-8.7) 01/22/23 12:27 Albumin 3.0 g/dL (3.5-5.2) L 01/25/23 06:21 Globulin 5.0 g/dL (1.3-4.6) H 01/22/23 12:27 Procalcitonin 0.12 ng/mL (0-0.5) 01/22/23 12:27 Urine Color Yellow (Yellow) 01/22/23 13:09 Urine Appearance Clear (CLEAR) 01/22/23 13:09 Urine pH 6 (5-7) 01/22/23 13:09 Ur Specific [place]man 1.010 (1.005-1.030) 01/22/23 13:09 Urine Protein Neg (Negative) 01/22/23 13:09 Urine Glucose (UA) Norm (Normal) 01/22/23 13:09 Urine Ketones Negative (Negative) 01/22/23 13:09 Urine Blood Neg (Negative) 01/22/23 13:09 Urine Nitrate Negative (Negative) 01/22/23 13:09 Urine Bilirubin Neg (Negative) 01/22/23 13:09 Urine Urobilinogen Norm mg/dL (Negative) 01/22/23 13:09 Ur Leukocyte Esterase Negative (Negative) 01/22/23 13:09 CT Chest: Radiologist's impression: 1.? No evidence of pulmonary embolus. 2.? Chronic emphysematous changes with interstitial fibrosis similar to the prior examinations. 3.? Small bilateral pleural effusions with fluid and airspace infiltrates in the RIGHT lower lobe and RIGHT middle lobe. Correlation for pneumonia versus cardiogenic pulmonary edema 4.? Reflux into the hepatic veins can be seen with RIGHT heart dysfunction. 5.? Prior cholecystectomy. 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 ? CXR: My impression: 1. Consolidating infiltrates in the right lower lobe suspicious for pneumonia. 2. Superimposed chronic changes and widespread changes of honeycombing and emphysema noted. EKG 1: My Interpretation: Sinus tachycardia with a diffuse nonspecific ST-T changes. EKG 2: My Interpretation: Normal sinus rhythm with a prominent T inversions in the anterolateral leads and nonspecific T wave changes in the inferior leads. A&P Assessment and plan (1) NSTEMI (non-ST elevated myocardial infarction): The patient's clinical features are consistent with a non-ST elevation myocar dial infarction. I agree with IV heparin, p.o. beta-ivanna, aspirin, Plavix, statin and other symptomatic measures. I may do a lipid profile on the blood in the lab. Echocardiography helpful to evaluate LV function and rule out any other pathology. (2) Traumatic compression fracture of T12 thoracic vertebra: Management as per Dr. Walsh (3) Pulmonary emphysema with fibrosis of lung: Management as per the pulmonary service. (4) Sepsis with acute hypoxic respiratory failure: Patient seems to have a right lower lobe pneumonia. Patient is receiving IV antibiotics. Continue other treatment measures. Apparently patient did not want to undergo artificial ventilation or any aggressive resuscitative measures Plan Based on the results of the above tests and the patient's clinical progress, further recommendations will be made. Thank you for the opportunity to eval t his patient and make these recommendations Consult Attestations Medical Necessity Statement: Patient requires continued hospital stay for close monitoring and further management Coding Level of Care Code 99273 Diagnoses NSTEMI (non-ST elevated myocardial infarction) I21.4 Traumatic compression fracture of T12 thoracic vertebra S22.080A Pulmonary emphysema with fibrosis of lung J43.9; J84.10 Sepsis with acute hypoxic respiratory failure A41.9; R65.20; J96.01
--- NOTE | 2023-01-25 11:27 | PC.SOCIAL ---
Pg 2 IMM Explained to pt Pg 2 IMM. No questions voiced. Provided pt a copy. Initialed, dated, & timed a copy & placed in chart.
--- NOTE | 2023-01-25 13:39 | P.PN_ITS ---
Subjective Subjective: Patient reportedly had a rough night. She reports chest heaviness last night. She is currently chest pain/heaviness free. Troponin found to be elevated with elevated delta troponin. Patient started on ACS protocol. She also states she did not get any sleep last night. She reports she can not get comfortable. She endorses continued severe coughing episode. Denies fevers, nausea, or emesis. Daughters are bedside and supportive of patient. Medications: Reviewed: Yes Vitals/I&O/Wt Last Vital Signs Temp 97.7 F 01/25/23 08:35 Pulse 86 01/25/23 12:40 Resp 26 H 01/25/23 12:40 BP 97/61 01/25/23 12:40 Pulse Ox 91 01/25/23 12:40 O2 Del Method Nasal Cannula 01/25/23 07:55 O2 Flow Rate 5 01/25/23 07:55 01/24/23 01/25/23 01/25/23 22:59 06:59 14:59 Intake Total 780 / 2140 79.914 / 2219.914 Output Total 905 / 905 0 / 905 Balance -125 / 1235 79.914 / 1314.914 Weight last 48 hrs Weight 50.53 kg Weight 49.895 kg Physical Exam Narrative: General: Patient is awake. Appears tired. Head: Normocephalic. Atraumatic. EOM intact. Neck: No JVD. Cardiovascular: RRR. No gallops. No murmurs. Lungs: Improving rales in right lung base. No wheezing. On nasal canula. Less accessory muscle use than prior exam noted. Skin: No jaundice. No rashes. Abdomen: Normal bowel sounds, abdomen soft and nontender. Genito Urinary: Genital exam not performed since complaints not related. Rectal: Rectal exam not performed since no symptoms indicated blood loss. Extremities: No cyanosis or clubbing. Musculoskeletal: No swollen or erythematous joints. Neurological: Moves all 4 extremities. No myoclonus. Urinary Catheter Management: Roche: Cath Placed During This Visit: no Reason for Continuing Indwelling Catheter: Other Data 01/25/23 06:21 01/25/23 06:21 A&P Assessment and plan (1) Right lower lobe pneumonia: Pulmonary following, patient d/w Datar Continue ceftriaxone (01/22-P) Continue azithromycin (01/22-P), QTc 483 but previous EKG higher, may need doxycycline if QTc increases Agree w/ Lasix Continue steroids Continue breathing treatments (2) NSTEMI (non-ST elevated myocardial infarction): Continue aspirin Continue high intensity statin Continue metoprolol, heart rate has improved Continue heparin drip NTG PRN Echo pending Telemetry Cardiology consulted, d/w Dr. Hardwick (3) T12 vertebral fracture: Acute T12 fracture secondary to mechanical fall Status post kyphoplasty on 01/23 May benefit from home health when medically ready for discharge (4) Fall: Fall precautions (5) Hyponatremia: Continue to monitor (6) Leukocytosis: Either 2/2 PNA versus stress induced CAP w/u as above Trend (7) Allergic rhinitis: Continue Zyrtec Continue Montelukast Plan DVT ppx: Heparin Drip Code Status: DNR Attestations Medical Necessity Statement*: Patient requires ongoing hospitalization for heparin drip, cardiology evaluation, pulmonary evaluation, supplemental oxygen, IV steroids, and supportive care. Coding Level of Care Code Acute Code for [facility] Fwd Diagnoses Right lower lobe pneumonia J18.9 NSTEMI (non-ST elevated myocardial infarction) I21.4 T12 vertebral fracture S22.089A Fall W19.XXXA Hyponatremia E87.1 Leukocytosis D72.829 Allergic rhinitis J30.9
[2023-01-25 13:43] LABS: Partial Thromboplastin Time 53.9 SECONDS (23.9-36.7)
[2023-01-25] MEDS: FUROsemide 10 mg/mL SDV 4mL 40 MG IVP (16:59)
[2023-01-25] MEDS: cefTRIAXone 1,000 MG in sodium chloride 0.9% (plus) 50 ML 100 MG IV (16:59)
--- NOTE | 2023-01-25 17:00 | USCV_ITS ---
Karen Hernandes Age: 82 Gender: F : 1940 Exam Date: 01/25/2023 01:58 Ordering Phys: Andrew Stokes MD Technologist: MICHAEL Exam Location: [facility] [place] Indication: evaluate RV and LV function. BP: 109 / 74 HR: 88 Rhythm: Sinus Technical Quality: Adequate MEASUREMENTS (Male / Female) Normal Values 2D ECHO LV Diastolic Diameter PLAX 3.4 cm 4.2 - 5.9 / 3.9 - 5.3 cm LV Systolic Diameter PLAX 2.5 cm IVS Diastolic Thickness 1.4 cm 0.6 - 1.0 / 0.6 - 0.9 cm IVS Systolic Thickness 1.8 cm LVPW Diastolic Thickness 1.0 cm 0.6 - 1.0 / 0.6 - 0.9 cm LVPW Systolic Thickness 1.3 cm LVOT Diameter 1.7 cm LV Ejection Fraction 2D Teich 51.6 % LV Ejection Fraction MOD 2C 41.9 % LV Ejection Fraction 2C AL 41.3 % LA Diameter 3.5 cm LA Width 3.6 cm LA Height 4.7 cm RA Width 2.8 cm RA Height 4.1 cm Aorta at Sinotubular Diameter 3.4 cm IVC Diameter 2.0 cm M-MODE Aortic Annulus Diameter 3.1 cm LA Ao Ratio MM 1.0 MV E Point Septal Separation 0.4 cm DOPPLER AV Peak Velocity 80.0 cm/s LVOT Peak Velocity 54.0 cm/s AV Area Cont Eq vti 1.4 cm squared AV Area Cont Eq pk 1.6 cm squared MV Area PHT 4.7 cm squared Mitral E to A Ratio 0.9 MV E' Velocity 40.0 cm/s Mitral E to MV E' Ratio 10.2 Mitral E to LV E' Lateral Ratio 9.4 Mitral E to LV E' Septal Ratio 11.1 TR Peak Velocity 344.7 cm/s TR Peak Gradient 47.5 mmHg TV Peak E Velocity 34.0 cm/s Right Atrial Pressure 15.0 mmHg Pulmonary Artery Systolic Pressu 62.5 mmHg PV Peak Velocity 68.0 cm/s RV Acceleration Time 0.1 s RV Ejection Time 0.3 s RV AcT/ET 0.3 FINDINGS Left Ventricle Severe diffuse hypokinesia of the mid and apical septum, anteroseptum, inferior, apical lateral and LV apex. The LV ejection fraction is 41%.Grade I/IV diastolic dysfunction (abnormal relaxation filling pattern), normal to mildly elevated filling pressures. Right Ventricle The right ventricle is normal in size and function. Right Atrium The right atrium is normal in size. Left Atrium Mildly increased left atrial size. Mitral Valve Thickened mitral valve. Moderate mitral valve regurgitation. Aortic Valve Thickened aortic valve. Moderate aortic valve calcification. Tricuspid Valve [id number] tricuspid valve regurgitation. Estimated pulmonary artery peak systolic pressure 63 mmHg Pulmonic Valve Mild pulmonary valve regurgitation. Pericardium No pericardial effusion. Aorta Normal ascending aorta dimension. IVC The inferior vena cava appears normal. CONCLUSIONS Severe diffuse hypokinesia of the mid and apical septum, anteroseptum, inferior, apical lateral and LV apex. The LV ejection fraction is 41%.Grade I/IV diastolic dysfunction (abnormal relaxation filling pattern), normal to mildly elevated filling pressures. Mildly increased left atrial size. Thickened mitral valve. Moderate mitral valve regurgitation. Estimated pulmonary artery peak systolic pressure 63 mmHg Mild pulmonary valve regurgitation. [id number] tricuspid valve regurgitation. Normal RV size and ejection fraction There is no pericardial effusion. No similar previous studies are available for comparison Dr Isabel Hardwick MD [facility] (Electronically Signed) Final Date: 26 January 2023 08:30 S
--- NOTE | 2023-01-25 19:30 | P.PN_ITS ---
Subjective Subjective: Overnight-patient labs showed elevated troponin with increased delta troponin, BNP is > 20,000 and the EKG showed ST depression-started on heparin drip, aspirin, Plavix, statin-patient reported that she is feeling better Echocardiogram were performed yesterday night-pending results Today morning she is down to 3 L and saturating 94% Both daughters are at bedside Medications: Reviewed: Yes Vitals/I&O/Wt Last Vital Signs Temp 97.5 F L 01/25/23 13:10 Pulse 98 01/25/23 17:15 Resp 27 H 01/25/23 17:15 BP 85/56 01/25/23 17:15 Pulse Ox 97 01/25/23 17:15 O2 Del Method Nasal Cannula 01/25/23 13:41 O2 Flow Rate 3 01/25/23 13:41 01/25/23 01/25/23 01/25/23 06:59 14:59 22:59 Intake Total 79.914 / 2219.914 110 / 110 Output Total 0 / 905 Balance 79.914 / 1314.914 110 / 110 Weight last 48 hrs Weight 111 lb 6.4 oz Weight 110 lb Physical Exam Narrative: General: alert, in mild to moderate respiratory distress HEENT: conj clear, EOMI, PERRL, mmm, Neck: supple, no meningismus Heme: no cervical LAP Respiratory: Inspection: No visible deformity of the chest wall Palpation: Trachea is mildly deviated to the right, bilateral symmetric expansion Percussion: Bilateral tympanic percussion note both anterior and posteriorly Auscultation: Bibasilar inspiratory coarse crackles Cardiovascular: rrr, nl s1s2, no mrg Abdomen: soft, nt, nd, no r/g, bs+ Extremities: pulses +, no edema, no c/c : no CVA tenderness Skin: intact, no rash MSK: no back or neck pain Neurologic: grossly intact Urinary Catheter Management: Roche: Cath Placed During This Visit: no Reason for Continuing Indwelling Catheter: Other Data 01/25/23 06:21 01/25/23 06:21 Other Labs: Radiology Impressions Lumbar Spine CT 01/22/23 12:00 IMPRESSION: 1. Acute compression fracture T12 superior endplate with loss of approximately 25% vertebral body height. Minimal retropulsion with slight effacement of ventral thecal sac and mild central canal stenosis. 2. Moderate central canal stenosis L3-L4 due to grade 1 anterolisthesis in combination with facet arthropathy ligamentum flavum hypertrophy. 3. Mild central canal stenosis L4-L5. Notified Rodo Alexander DO at 01/22/2023 1:19 PM. Chest X-Ray 01/22/23 13:25 IMPRESSION: 1. Consolidating infiltrates in the right lower lobe suspicious for pneumonia. 2. Superimposed chronic changes and widespread changes of honeycombing and emphysema noted. Cervical Spine CT 01/22/23 13:26 IMPRESSION: No evidence of acute fracture or dislocation. Head CT 01/22/23 13:26 IMPRESSION: 1. No evidence of intracranial hemorrhage or mass effect. 2. Moderate small vessel changes moderate parenchymal volume loss. 3. Vascular calcification. 4. No acute intracranial findings. Thoracic Spine MRI 01/22/23 17:27 IMPRESSION: Acute compression fracture of T12 vertebral body. No spinal canal compromise. Additional details as above. Chest CTA 01/24/23 15:04 IMPRESSION: 1. No evidence of pulmonary embolus. 2. Chronic emphysematous changes with interstitial fibrosis similar to the prior examinations. 3. Small bilateral pleural effusions with fluid and airspace infiltrates in the RIGHT lower lobe and RIGHT middle lobe. Correlation for pneumonia versus ca rdiogenic pulmonary edema 4. Reflux into the hepatic veins can be seen with RIGHT heart dysfunction. 5. Prior cholecystectomy. 6. Aberrant RIGHT subclavian artery. Laboratory Results WBC 15.6 10^3/uL (4.0-10.0) H 01/25/23 06:21 RBC 3.56 10^6/uL (4.1-5.3) L 01/25/23 06:21 Hgb 10.5 g/dL (11.5-15.3) L 01/25/23 06:21 Hct 32.7 % (37.0-47.0) L 01/25/23 06:21 MCV 91.9 fl (81-99) 01/25/23 06:21 MCH 29.5 pg (28.0-34.0) 01/25/23 06:21 MCHC 32.1 g/dL (30.0-36.0) 01/25/23 06:21 RDW 13.3 % (12.1-15.1) 01/25/23 06:21 Plt Count 324 10^3/cmm (130-400) 01/25/23 06:21 MPV 9.5 fL (7.4-10.4) 01/25/23 06:21 Neut % (Auto) 84.1 % 01/25/23 06:21 Lymph % (Auto) 9.7 % 01/25/23 06:21 [place] % (Auto) 5.5 % 01/25/23 06:21 Eos % (Auto) 0.0 % 01/25/23 06:21 Baso % (Auto) 0.1 % 01/25/23 06:21 Neut # (Auto) 13.11 10^3/uL (1.8-7.7) H 01/25/23 06:21 Lymph # (Auto) 1.5 10^3/uL (0.8-4.8) 01/25/23 06:21 [place] # (Auto) 0.9 10^3/uL (0.2-0.9) 01/25/23 06:21 Eos # (Auto) 0.0 10^3/uL (0.0-0.8) 01/25/23 06:21 Baso # (Auto) 0.0 10^3/uL (0.0-0.1) 01/25/23 06:21 Nucleated RBC % (auto) 0 % 01/25/23 06:21 Nucleated RBCs # 0.0 /100WBC 01/25/23 06:21 APTT 53.9 SECONDS (23.9-36.7) H 01/25/23 12:58 Specimen Type Arterial 01/24/23 16:08 Sample Site Radial, right 01/24/23 16:08 ABG pH 7.43 (7.35-7.45) 01/24/23 16:08 ABG pCO2 31.1 mmHg (35-45) L 01/24/23 16:08 ABG pO2 45.2 mmHg (80.0-100.0) L 01/24/23 16:08 ABG HCO3 20.4 mmol/L (22-26) L 01/24/23 16:08 ABG O2 Saturation 85.2 01/24/23 16:08 ABG Base Excess -3.2 mmol/L (-2.0-2.0) L 01/24/23 16:08 Alejo Test Pos 01/24/23 16:08 A-a O2 Gradient 18.4 mmHg (5-10) H 01/24/23 16:08 Hematocrit 34.4 % (37-47) L 01/24/23 16:08 Hgb O2 Saturation 83.7 % (95-100) L 01/24/23 16:08 Carboxyhemoglobin 1.3 %THgb (0.4-20.1) 01/24/23 16:08 Methemoglobin 0.5 % (0.4-1.5) 01/24/23 16:08 Total Hemoglobin 11.2 g/dL (12-16) L 01/24/23 16:08 Sodium 132.0 mmol/L (131-143) 01/24/23 16:08 Potassium 3.8 mmol/L (3.5-5.0) 01/24/23 16:08 Glucose 131.0 mg/dL (70-115) H 01/24/23 16:08 Ionized Calcium 1.3 mmol/L (1.1-1.4) 01/24/23 16:08 O2 Delivery Device Nc 01/24/23 16:08 O2 Liters/Min 3.0 % 01/24/23 16:08 FiO2 32.0 % 01/24/23 16:08 Shale Planer Operator Helper ID glc 01/24/23 16:08 Sodium 132 mmol/L (136-145) L 01/25/23 06:21 Potassium 4.5 mmol/L (3.5-5.1) 01/25/23 06:21 Chloride 97 mmol/L (98-107) L 01/25/23 06:21 Carbon Dioxide 24 mmol/L (22-29) 01/25/23 06:21 Anion Gap 15.5 (5-19) 01/25/23 06:21 BUN 17 mg/dL (8-23) 01/25/23 06:21 Creatinine 0.8 mg/dL (0.5-0.9) 01/25/23 06:21 GFR Calculation Not Reportable 01/25/23 06:21 Glucose 134 mg/dL (65-115) H 01/25/23 06:21 Calculated Osmolality 276 mOsm/kg (285-295) L 01/22/23 12:27 Calcium 9.1 mg/dL (8.5-10.5) 01/25/23 06:21 Phosphorus 3.7 mg/dL (2.5-4.5) 01/25/23 06:21 Magnesium 1.8 mg/dL (1.7-2.3) 01/24/23 04:43 Total Bilirubin 0.5 mg/dL (0.15-1.2) 01/22/23 12:27 AST 25 U/L (0-32) 01/22/23 12: ALT 11 U/L (0-33) 01/22/23 12:27 Alkaline Phosphatase 77 U/L (35-105) 01/22/23 12:27 Troponin T Baseline 355 ng/L (0-10) H* 01/24/23 17:15 Troponin T 120 Minute 413.2 ng/L (0-10) H 01/24/23 19:25 Delta Troponin T 58.2 ABS# (0-10) H* 01/24/23 19:25 Troponin T Hi Sens 6Hr 405.3 ng/L (0-10) H 01/24/23 23:00 Troponin T Hi Sens 6Hr Delta 50.3 ng/L (0-12) H* 01/24/23 23:00 C-Reactive Protein 45.4 mg/L (0.0-4.9) H 01/22/23 12:27 NT-Pro-B Natriuret Pep 64676 pg/mL (0-450) H 01/24/23 17:15 Total Protein 8.5 g/dL (6.6-8.7) 01/22/23 12:27 Albumin 3.0 g/dL (3.5-5.2) L 01/25/23 06:21 Globulin 5.0 g/dL (1.3-4.6) H 01/22/23 12:27 Procalcitonin 0.12 ng/mL (0-0.5) 01/22/23 12:27 Urine Color Yellow (Yellow) 01/22/23 13:09 Urine Appearance Clear (CLEAR) 01/22/23 13:09 Urine pH 6 (5-7) 01/22/23 13:09 Ur Specific [place] 1.010 (1.005-1.030) 01/22/23 13:09 Urine Protein Neg (Negative) 01/22/23 13:09 Urine Glucose (UA) Norm (Normal) 01/22/23 13:09 Urine Ketones Negative (Negative) 01/22/23 13:09 Urine Blood Neg (Negative) 01/22/23 13:09 Urine Nitrate Negative (Negative) 01/22/23 13:09 Urine Bilirubin Neg (Negative) 01/22/23 13:09 Urine Urobilinogen Norm mg/dL (Negative) 01/22/23 13:09 Ur Leukocyte Esterase Negative (Negative) 01/22/23 13:09 A&P Assessment and plan (1) NSTEMI (non-ST elevated myocardial infarction): Patient complaining of chest heaviness, elevated troponins, EKG showing ST de pression-consistent with NSTEMI She was started on IV heparin drip, Plavix, aspirin, statin, beta-ivanna Cardiology on board My another concern if RV dysfunction is contributing to shortness of breath given her significant underlying chronic emphysema and pulmonary fibrosis- echocardiogram is pending Patient refused resuscitation and intubation. (2) Sepsis with acute hypoxic respiratory failure: Patient was on room air until today morning-currently requiring 6 L supplemental oxygen On 3 L supplemental oxygen-ABG showed pH 7.43/PCO2 31/PaO2 45/bicarb 20/saturation 85%-increased supplemental oxygen to 6 L yesterday- She was started on heparin for NSTEMI-today morning showed is on 3 L saturating 94% CTA did not show any evidence of pulmonary embolism. Showed background chronic emphysema with interstitial fibrosis and small bilateral effusions with predominant fluid and airspace infiltrates in right lower lobe and middle lobe. Suspicious for pneumonia. She is on Rocephin and azithromycin for right lower lobe pneumonia Started on p.o. prednisone 40 mg twice daily for ILD exacerbation-we will gradually taper down based on response (3) Right lower lobe pneumonia: Imaging suggestive of right lower lobe pneumonia Currently she is receiving Rocephin and azithromycin for right lower lobe pneumonia (4) Pulmonary emphysema with fibrosis of lung: Patient never had PFTs as outpatient According to daughter patient has smoked for over 20 years and quit in 1980s She may have a component of undiagnosed pulmonary hypertension given her underlying interstitial lung disease as well as emphysema-ordered echo, BNP, Lasix 40 Mg daily Agree with nebulization every 6 hours scheduled (5) Traumatic compression fracture of T12 thoracic vertebra: Patient underwent T12 kyphoplasty on 01/23/2023 Plan Hospitalist aware that I am not available concessions manager for the next 24 to 48 hours. Attestations Medical Necessity Statement*: Patient may stay 24 to 48 hours pending cardiology evaluation Time Spent in Patient Care: Greater than 35 minutes (>than 50% of time spent in counselling and/or direct pt care on unit) . Critical Care Time: The high probability of a clinically significant, sudden or life threatening deterioration of the patient's [pulmonary, cardiac] system(s) required my full and direct attention, intervention and personal management. The critical care time is as shown. This time is in addition to time spent performing any reported procedures but includes the following: [x] Data and vital sign review and interpretation [x] Patient assessment, examination and intervention [x] Documentation [x] Medication orders and management Critical Care Time (min): 54 Coding Level of Care Code 68407 Diagnoses NSTEMI (non-ST elevated myocardial infarction) I21.4 Sepsis with acute hypoxic respiratory failure A41.9; R65.20; J96.01 Right lower lobe pneumonia J18.9 Pulmonary emphysema with fibrosis of lung J43.9; J84.10 Traumatic compression fracture of T12 thoracic vertebra S22.080A Time Spent (min) 54
[2023-01-25 20:35] LABS: Partial Thromboplastin Time 48.8 SECONDS (23.9-36.7)
[2023-01-25] MEDS: atorvastatin 40 mg Tablet PO (21:36)
[2023-01-25] MEDS: cetirizine 10 mg Tablet PO (21:36)
[2023-01-26] VITALS (11 sets, daily range): BP systolic 84–115; BP diastolic 53–73; PULSE 72–104; RESP 16–28; TEMP 36.3–36.7; O2SAT 93–100
[2023-01-26] MEDS: heparin drip 25,000 UNIT/500 ML PREMIX 15.19 UNIT IV (03:20)
[2023-01-26 03:41] LABS: Basophils % 0.1 %; Hematocrit 31.2 % (37.0-47.0); Hemoglobin 10.2 g/dL (11.5-15.3); Lymphocytes # 1.6 10^3/uL (0.8-4.8); Lymphocytes % 10.1 %; Mean Corpuscular HGB Conc 32.7 g/dL (30.0-36.0); Mean Corpuscular Hemoglobin 29.5 pg (28.0-34.0); Mean Corpuscular Volume 90.2 fl (81-99); Mean Platelet Volume 9.8 fL (7.4-10.4); Monocytes # 0.7 10^3/uL (0.2-0.9); Monocytes % 4.2 %; Neutrophils # 13.21 10^3/uL (1.8-7.7); Nucleated Red Blood Cells % 0 %; Platelet Count 331 10^3/cmm (130-400); Red Blood Count 3.46 10^6/uL (4.1-5.3); Red Cell Distribution Width 13.2 % (12.1-15.1); White Blood Count 15.5 10^3/uL (4.0-10.0)
[2023-01-26 03:50] LABS: Partial Thromboplastin Time 56.9 SECONDS (23.9-36.7)
[2023-01-26 03:59] LABS: Albumin Level 2.9 g/dL (3.5-5.2); Blood Urea Nitrogen 27 mg/dL (8-23); Calcium 9.1 mg/dL (8.5-10.5); Carbon Dioxide 24 mmol/L (22-29); Chloride 97 mmol/L (98-107); Glucose 132 mg/dL (65-115); Phosphorus 3.4 mg/dL (2.5-4.5); Sodium 134 mmol/L (136-145)
[2023-01-26] MEDS: ipratropium-albuterol 3 mL Neb INHALATION ×3 (08:01→21:17)
[2023-01-26] MEDS: azithromycin 250 mg Tablet 500 MG PO (09:42)
[2023-01-26] MEDS: metoprolol tartrate 25 mg Tablet PO ×2 (09:42→20:30)
[2023-01-26] MEDS: docusate sodium 100 mg Capsule PO ×2 (09:42→17:01)
[2023-01-26] MEDS: aspirin 325 mg Tablet PO (09:43)
[2023-01-26 10:08] LABS: Partial Thromboplastin Time 62.2 SECONDS (23.9-36.7)
[2023-01-26] MEDS: HYDROcodone-acetaminophen 5-325 mg Tablet 1 TAB PO ×2 (10:13→20:29)
[2023-01-26] MEDS: FUROsemide 10 mg/mL SDV 4mL 40 MG IVP ×2 (11:06→20:31)
[2023-01-26] MEDS: potassium chloride ER 20 mEq Tablet PO (11:06)
--- NOTE | 2023-01-26 13:17 | PM.PN ---
Subjective Subjective: The patient is feeling better. She still has significant shortness of breath with activities. The echocardiogram done revealed moderately severe tricuspid regurgitation. The RV size ejection fraction is normal. The LV ejection fraction was around 40%. Severe diffuse hypokinesia of the LV apex and the anteroseptal segments. Medications: Medication Review Details: Current Medications Acetaminophen (Acetaminophen 325 Mg Tablet) 650 mg PO Q6H PRN PRN Reason: Mild/Mod Pain Or Temp >/= 101 Hydrocodone Bitart/Acetaminophen (Hydrocodone-Acetaminophen 5-325 Mg Tablet) 1 tab PO Q4H PRN PRN Reason: MODERATE PAIN Last Admin: 01/26/23 10:13 Dose: 1 tab Al Hydrox/Mg Hydrox/Simethicone (Mxvf-Xhw-Kvkssfeqf-Osmany 30 Ml Udc) 30 ml PO Q4H PRN PRN Reason: INDIGESTION Albuterol Sulfate (Albuterol 2.5 Mg/3 Ml Neb) 2.5 mg INHALATION Q4H.RESPIRATORY PRN PRN Reason: SHORTNESS OF BREATH Last Admin: 01/24/23 10:42 Dose: 2.5 mg Albuterol/Ipratropium (Ipratropium-Albuterol 3 Ml Neb) 3 ml INHALATION Q6H.RESP BENITA Last Admin: 01/26/23 08:01 Dose: 3 ml Aspirin (Aspirin 325 Mg Tablet) 325 mg PO DAILY BENITA Last Admin: 01/26/23 09:43 Dose: 325 mg Atorvastatin Calcium (Atorvastatin 40 Mg Tablet) 40 mg PO BEDTIME BENITA Last Admin: 01/25/23 21:36 Dose: 40 mg Azithromycin (Azithromycin 250 Mg Tablet) 500 mg PO DAILY BENITA; Protocol Last Admin: 01/26/23 09:42 Dose: 500 mg Cetirizine HCl (Cetirizine 10 Mg Tablet) 10 mg PO BEDTIME BENITA Last Admin: 01/25/23 21:36 Dose: 10 mg Docusate Sodium (Docusate Sodium 100 Mg Capsule) 100 mg PO BID BENITA Last Admin: 01/26/23 09:42 Dose: 100 mg Furosemide (Furosemide 10 Mg/Ml Sdv 4ml) 40 mg IVP Q12H BENITA Last Admin: 01/26/23 11:06 Dose: 40 mg Heparin Sodium (Porcine) (Heparin 5,000 Unit/Ml Inj 1 Ml) 0 unit IV PRN PRN; Protocol PRN Reason: Heparin weight-base protocol Last Admin: 01/25/23 21:38 Dose: 1,000 unit Ceftriaxone Sodium 1,000 mg/ (Sodium Chloride) 50 mls @ 100 mls/hr IV Q24H [facility]; Protocol Last Infusion: 01/25/23 19:27 Dose: Infused Heparin Sodium/Sodium Chloride (Heparin Drip) 25,000 unit in 500 mls @ 0 mls/hr IV .Q0M [facility]; Protocol Last Admin: 01/26/23 03:20 Dose: 18 unit/kg/hr, 15.19 mls/hr Lorazepam (Lorazepam 1 Mg Tablet) 0.5 mg PO TID PRN PRN Reason: Anxiety Last Admin: 01/24/23 16:49 Dose: 0.5 mg Magnesium Hydroxide (Magnesium Hydroxide 30 Ml Udc) 30 ml PO Q4H PRN PRN Reason: Constipation/indigestion Methylprednisolone Sodium Succinate (Methylprednisolone Sod Succ 125 Mg/2 Ml Inj) 40 mg IVP Q12H [facility] Last Admin: 01/26/23 05:38 Dose: 40 mg Metoprolol Tartrate (Metoprolol Tartrate 25 Mg Tablet) 25 mg PO BID@0900,2100 [facility] Last Admin: 01/26/23 09:42 Dose: 25 mg Montelukast Sodium (Montelukast Sodium 10 Mg Tablet) 10 mg PO DAILY PRN PRN Reason: Allergy Symptoms Morphine Sulfate (Morphine 4 Mg/Ml Sdv 1 Ml) 2 mg IVP Q4H PRN PRN Reason: SEVERE PAIN Last Admin: 01/25/23 00:53 Dose: 2 mg Nitroglycerin (Nitroglycerin 0.4 Mg Sublingual Tablet) 0.4 mg SUBLINGUAL Q5M PRN PRN Reason: CHEST PAIN Ondansetron HCl (Ondansetron 4 Mg Tablet) 4 mg PO Q8H PRN PRN Reason: NAUSEA Ondansetron HCl (Ondansetron 2 Mg/Ml Sdv 2 Ml) 4 mg IVP Q6H PRN PRN Reason: NAUSEA AND VOMITING Potassium Chloride (Potassium Chloride Er 20 Meq Tablet) 20 meq PO DAILY [facility] Last Admin: 01/26/23 11:06 Dose: 20 meq Senna (Sennosides 8.6 Mg Tablet) 17.2 mg PO BEDTIME [facility] Last Admin: 01/25/23 21:34 Dose: Not Given Tramadol HCl (Tramadol 50 Mg Tablet) 50 mg PO Q4H PRN PRN Reason: MODERATE PAIN Vitals/I&O/Wt Last Vital Signs Temp 97.4 F L 01/26/23 08:00 Pulse 104 H 01/26/23 08:00 Resp 20 H 01/26/23 08:00 BP 115/73 01/26/23 08:00 Pulse Ox 93 01/26/23 08:00 O2 Del Method Nasal Cannula 01/26/23 08:00 O2 Flow Rate 3 01/26/23 08:00 01/25/23 01/26/23 01/26/23 22:59 06:59 14:59 Intake Total 428.9 / 428.9 86.077 / 514.977 240 / 240 Output Total 400 / 400 600 / 1000 Balance 28.9 / 28.9 -513.923 / -485.023 240 / 240 Weight last 48 hrs Weight 111 lb 6.4 oz Weight 110 lb Physical Exam Narrative: GENERAL: The patient is alert and oriented times three. Not in any acute distress. HEENT: No significant pallor, icterus or lymphadenopathy.Oral cavity: There are no mucous membrane lesions. NECK: Trachea appears to be central. No masses noted. No JVD or thyromegaly appreciated. RESPIRATORY: Chest is symmetrical. No intercostals muscle retraction or any accessory muscle activation. The breath sounds are diminished in the bases. Has some bronchovesicular breath sounds the right base. Scattered coarse crackles and occasional expiratory wheezing BREASTS: Deferred. HEART: The heart sounds are normal. No S3 or S4. Systolic murmur grade 3 or 6 in the left sternal border. No diastolic murmurs. No pericardial rub ABDOMEN: No vessel pulsations or distention. No tenderness. No organomegaly appreciated. Bowel sounds are normally heard. : Deferred. RECTAL: Deferred. LYMPHATIC: No lymphadenopathy noted in the neck. EXTREMITIES: No edema or cyanosis. No clubbing. MUSCULOSKELETAL: No acute joint deformities or swelling SKIN: There are no significant rashes or ecchymosis NEUROPSYCHIATRIC: The patient is alert and oriented x3. Appears to be in a good mood. No tremors or rigidity noted. Urinary Catheter Management: Roche: Cath Placed During This Visit: no Reason for Continuing Indwelling Catheter: Other Data 01/26/23 03:24 01/26/23 03:24 Other Labs: Laboratory Last Values WBC 15.5 10^3/uL (4.0-10.0) H 01/26/23 03:24 RBC 3.46 10^6/uL (4.1-5.3) L 01/26/23 03:24 Hgb 10.2 g/dL (11.5-15.3) L 01/26/23 03:24 Hct 31.2 % (37.0-47.0) L 01/26/23 03:24 MCV 90.2 fl (81-99) 01/26/23 03:24 MCH 29.5 pg (28.0-34.0) 01/26/23 03:24 MCHC 32.7 g/dL (30.0-36.0) 01/26/23 03:24 RDW 13.2 % (12.1-15.1) 01/26/23 03:24 Plt Count 331 10^3/cmm (130-400) 01/26/23 03:24 MPV 9.8 fL (7.4-10.4) 01/26/23 03:24 Neut % (Auto) 85.0 % 01/26/23 03:24 Lymph % (Auto) 10.1 % 01/26/23 03:24 [place] % (Auto) 4.2 % 01/26/23 03:24 Eos % (Auto) 0.0 % 01/26/23 03:24 Baso % (Auto) 0.1 % 01/26/23 03:24 Neut # (Auto) 13.21 10^3/uL (1.8-7.7) H 01/26/23 03:24 Lymph # (Auto) 1.6 10^3/uL (0.8-4.8) 01/26/23 03:24 [place] # (Auto) 0.7 10^3/uL (0.2-0.9) 01/26/23 03:24 Eos # (Auto) 0.0 10^3/uL (0.0-0.8) 01/26/23 03:24 Baso # (Auto) 0.0 10^3/uL (0.0-0.1) 01/26/23 03:24 Nucleated RBC % (auto) 0 % 01/26/23 03:24 Nucleated RBCs # 0.0 /100WBC 01/26/23 03:24 APTT 62.2 SECONDS (23.9-36.7) H 01/26/23 09:35 Specimen Type Arterial 01/24/23 16:08 Sample Site Radial, right 01/24/23 16:08 ABG pH 7.43 (7.35-7.45) 01/24/23 16:08 ABG pCO2 31.1 mmHg (35-45) L 01/24/23 16:08 ABG pO2 45.2 mmHg (80.0-100.0) L 01/24/23 16:08 ABG HCO3 20.4 mmol/L (22-26) L 01/24/23 16:08 ABG O2 Saturation 85.2 01/24/23 16:08 ABG Base Excess -3.2 mmol/L (-2.0-2.0) L 01/24/23 16:08 Alejo Test Pos 01/24/23 16:08 A-a O2 Gradient 18.4 mmHg (5-10) H 01/24/23 16:08 Hematocrit 34.4 % (37-47) L 01/24/23 16:08 Hgb O2 Saturation 83.7 % (95-100) L 01/24/23 16:08 Carboxyhemoglobin 1.3 %THgb (0.4-20.1) 01/24/23 16:08 Methemoglobin 0.5 % (0.4-1.5) 01/24/23 16:08 Total Hemoglobin 11.2 g/dL (12-16) L 01/24/23 16:08 Sodium 132.0 mmol/L (131-143) 01/24/23 16:08 Potassium 3.8 mmol/L (3.5-5.0) 01/24/23 16:08 Glucose 131.0 mg/dL (70-115) H 01/24/23 16:08 Ionized Calcium 1.3 mmol/L (1.1-1.4) 01/24/23 16:08 O2 Delivery Device Nc 01/24/23 16:08 O2 Liters/Min 3.0 % 01/24/23 16:08 FiO2 32.0 % 01/24/23 16:08 Termite Control Technician ID glc 01/24/23 16:08 Sodium 134 mmol/L (136-145) L 01/26/23 03:24 Potassium 4.0 mmol/L (3.5-5.1) 01/26/23 03:24 Chloride 97 mmol/L (98-107) L 01/26/23 03:24 Carbon Dioxide 24 mmol/L (22-29) 01/26/23 03:24 Anion Gap 17.0 (5-19) 01/26/23 03:24 BUN 27 mg/dL (8-23) H 01/26/23 03:24 Creatinine 1.0 mg/dL (0.5-0.9) H 01/26/23 03:24 GFR Calculation Not Reportable 01/26/23 03:24 Glucose 132 mg/dL (65-115) H 01/26/23 03:24 Calculated Osmolality 276 mOsm/kg (285-295) L 01/22/23 12:27 Calcium 9.1 mg/dL (8.5-10.5) 01/26/23 03:24 Phosphorus 3.4 mg/dL (2.5-4.5) 01/26/23 03:24 Magnesium 2.0 mg/dL (1.7-2.3) 01/26/23 03:24 Total Bilirubin 0.5 mg/dL (0.15-1.2) 01/22/23 12:27 AST 25 U/L (0-32) 01/22/23 12:27 ALT 11 U/L (0-33) 01/22/23 12:27 Alkaline Phosphatase 77 U/L (35-105) 01/22/23 12:27 Troponin T Baseline 355 ng/L (0-10) H* 01/24/23 17:15 Troponin T 120 Minute 413.2 ng/L (0-10) H 01/24/23 19:25 Delta Troponin T 58.2 ABS# (0-10) H* 01/24/23 19:25 Troponin T Hi Sens 6Hr 405.3 ng/L (0-10) H 01/24/23 23:00 Troponin T Hi Sens 6Hr Delta 50.3 ng/L (0-12) H* 01/24/23 23:00 C-Reactive Protein 45.4 mg/L (0.0-4.9) H 01/22/23 12:27 NT-Pro-B Natriuret Pep 54315 pg/mL (0-450) H 01/24/23 17:15 Total Protein 8.5 g/dL (6.6-8.7) 01/22/23 12:27 Albumin 2.9 g/dL (3.5-5.2) L 01/26/23 03:24 Globulin 5.0 g/dL (1.3-4.6) H 01/22/23 12:27 Procalcitonin 0.12 ng/mL (0-0.5) 01/22/23 12:27 Urine Color Yellow (Yellow) 01/22/23 13:09 Urine Appearance Clear (CLEAR) 01/22/23 13:09 Urine pH 6 (5-7) 01/22/23 13:09 Ur Specific [place] 1.010 (1.005-1.030) 01/22/23 13:09 Urine Protein Neg (Negative) 01/22/23 13:09 Urine Glucose (UA) Norm (Normal) 01/22/23 13:09 Urine Ketones Negative (Negative) 01/22/23 13:09 Urine Blood Neg (Negative) 01/22/23 13:09 Urine Nitrate Negative (Negative) 01/22/23 13:09 Urine Bilirubin Neg (Negative) 01/22/23 13:09 Urine Urobilinogen Norm mg/dL (Negative) 01/22/23 13:09 Ur Leukocyte Esterase Negative (Negative) 01/22/23 13:09 Other data: Echocardiogram on 01/25/2023 revealed Severe diffuse hypokinesia of the mid and apical septum, ?anteroseptum, inferior, apical lateral and LV apex.? The LV ?ejection fraction is 41%.Grade I/IV diastolic dysfunction ?(abnormal relaxation filling pattern), normal to mildly elevated ?filling pressures.? Mildly increased left atrial size. ?Thickened mitral valve. Moderate mitral valve regurgitation. ?Estimated pulmonary artery peak systolic pressure 63 mmHg ?Mild pulmonary valve regurgitation. ?[id number] tricuspid valve regurgitation. ?Normal RV size and ejection fraction ?There is no pericardial effusion. ?No similar previous studies are available for comparison A&P Assessment and plan (1) NSTEMI (non-ST elevated myocardial infarction): The patient's clinical features are consistent with a non-ST elevation myocardial infarction. I agree with IV heparin, p.o. beta-ivanna, aspirin, Plavix, statin and other symptomatic measures. Patient may continue on the current medications. I may start her on a low-dose of ARB for further management. (2) Traumatic compression fracture of T12 thoracic vertebra: Management as per Dr. Walsh (3) Pulmonary emphysema with fibrosis of lung: Management as per the pulmonary service. (4) Sepsis with acute hypoxic respiratory failure: Patient seems to have a right lower lobe pneumonia. Patient is receiving IV antibiotics. Continue other treatment measures. Apparently patient did not want to undergo artificial ventilation or any aggressive resuscitative measures (5) Cardiomyopathy: Etiology is not clear. Possibility of a stress-induced cardiomyopathy cannot be excluded. She is in mild congestive heart failure. I may go up on the dose of the Lasix and potassium. (6) Severe tricuspid regurgitation: Patient was found to have moderately severe tricuspid regurgitation. The pulmonary artery peak systolic pressure was around 63 mmHg. Plan Other problems are Elevated white cell count-pneumonia/steroid Mild anemia Emphysema/interstitial lung disease Pulmonary hypertension Patient requires a cardiac catheterization to further evaluate her coronary status and decide on further management. I would like to wait till the heart failure and infections are appropriately treated. She may be continued on the heparin, Plavix, aspirin, statin, beta-ivanna and other medications. Based on the clinical progress, further recommendations will be made. Attestations Medical Necessity Statement*: Patient requires continued hospital stay for close monitoring and further management Coding Level of Care Code 98834 Diagnoses NSTEMI (non-ST elevated myocardial infarction) I21.4 Traumatic compression fracture of T12 thoracic vertebra S22.080A Pulmonary emphysema with fibrosis of lung J43.9; J84.10 Sepsis with acute hypoxic respiratory failure A41.9; R65.20; J96.01 Cardiomyopathy I42.9 Severe tricuspid regurgitation I07.1
--- NOTE | 2023-01-26 14:29 | ECG_ITS ---
[facility] Test Date: 2023-01-26 Pat Name: Karen Hernandes Department: Room: 108 Gender: Female [employer]: : 1940 Requested By: Isabel Hardwick Order Number: [id number] Alexia MD: Isabel Hardwick M.D. Measurements Intervals [place] Rate: 87 P: 144 VT: 192 QRS: -25 QRSD: 82 T: -31 QT: 380 QTc: 458 Interpretive Statements SINUS RHYTHM POSSIBLE LEFT ATRIAL ENLARGEMENT [-0.1mV P-WAVE IN V1/V2] POSSIBLE ANTERIOR MYOCARDIAL INFARCTION , OF INDETERMINATE AGE [30 ms Q WAVE IN V3/V4, OR R < 0.2 mV IN V4] INFERIOR MYOCARDIAL INFARCTION , OF INDETERMINATE AGE [40+ ms Q WAVE AND/OR ST/T ABNORMALITY IN II/aVF] MODERATE T-WAVE ABNORMALITY, CONSIDER LATERAL ISCHEMIA [-0.1+ mV T-WAVE IN I/aVL/V5/V6] Compared to ECG 01/24/2023 23:52:27 Myocardial infarct finding now present T-wave abnormality still present Possible ischemia still present Electronically Signed On 01-26-2023 17:02:48 CDT by Isabel Hardwick M.D. [email or web address]
--- NOTE | 2023-01-26 14:43 | P.PN_ITS ---
Subjective Subjective: Patient states last night was much better than the night prior. She states she was able to get some sleep. She does continue to cough but states she did not have a severe coughing fit overnight like she has been having. Denies chest heaviness this morning. Endorses overall generalized weakness and malaise. Denies fevers, nausea, or abdominal pain. Medications: Reviewed: Yes Vitals/I&O/Wt Last Vital Signs Temp 98.0 F 01/26/23 12:00 Pulse 92 01/26/23 12:00 Resp 24 H 01/26/23 12:00 BP 89/58 01/26/23 12:00 Pulse Ox 95 01/26/23 12:00 O2 Del Method Nasal Cannula 01/26/23 12:00 O2 Flow Rate 3 01/26/23 08:00 01/25/23 01/26/23 01/26/23 22:59 06:59 14:59 Intake Total 428.9 / 428.9 86.077 / 514.977 240 / 240 Output Total 400 / 400 600 / 1000 Balance 28.9 / 28.9 -513.923 / -485.023 240 / 240 Weight last 48 hrs Weight 50.53 kg Weight 49.895 kg Physical Exam Narrative: General: Patient is awake. Frail appearing. Appears tired. Head: Normocephalic. Atraumatic. EOM intact. Neck: No JVD. Cardiovascular: RRR. No gallops. No murmurs. Lungs: Rales in right lung base. No wheezing. On 3L nasal canula. Skin: No jaundice. No rashes. Abdomen: Normal bowel sounds, abdomen soft and nontender. Genito Urinary: Genital exam not performed since complaints not related. Rectal: Rectal exam not performed since no symptoms indicated blood loss. Extremities: No cyanosis or clubbing. Musculoskeletal: No swollen or erythematous joints. Neurological: Moves all 4 extremities. No myoclonus. Urinary Catheter Management: Roche: Cath Placed During This Visit: no Reason for Continuing Indwelling Catheter: Other Data 01/26/23 03:24 01/26/23 03:24 A&P Assessment and plan (1) Right lower lobe pneumonia: Pulmonary evaluated, follow up with Dr Stokes on Saturday Continue ceftriaxone (01/22-P) Continue azithromycin (01/22-P), last dose today Continue diuresis Continue steroids Continue breathing treatments Supplemental oxygen as needed Encourage pulmonary toilet (2) NSTEMI (non-ST elevated myocardial infarction): Continue aspirin Continue high intensity statin Continue metoprolol Continue heparin drip NTG PRN Echo pending Telemetry Cardiology consulted, d/w Dr. Hardwick, pt requires ischemic eval, possible cardiac cath on Saturday or Saturday pending pulmonary status (3) T12 vertebral fracture: Acute T12 fracture secondary to mechanical fall Status post kyphoplasty on 01/23 (4) Fall: Fall precautions (5) Hyponatremia: Continue to monitor (6) Leukocytosis: Either 2/2 PNA versus stress induced CAP w/u as above Trend (7) Allergic rhinitis: Continue Zyrtec Continue Montelukast Plan DVT ppx: Heparin Drip Code Status: DNR Attestations Medical Necessity Statement*: Patient requires ongoing hospitalization for heparin drip, cardiology evaluation including potential ischemic evaluation, pulmonary evaluation, supplemental oxygen, IV steroids, and supportive care. Coding Level of Care Code Acute Code for [facility] Diagnoses Right lower lobe pneumonia J18.9 NSTEMI (non-ST elevated myocardial infarction) I21.4 T12 vertebral fracture S22.089A Fall W19.XXXA Hyponatremia E87.1 Leukocytosis D72.829 Allergic rhinitis J30.9
[2023-01-26 16:21] LABS: Partial Thromboplastin Time 44.9 SECONDS (23.9-36.7)
[2023-01-26] MEDS: cefTRIAXone 1,000 MG in sodium chloride 0.9% (plus) 50 ML 100 MG IV (16:44)
[2023-01-26] MEDS: sennosides 8.6 mg Tablet 17.2 MG PO (17:01)
[2023-01-26] MEDS: atorvastatin 40 mg Tablet PO (20:29)
[2023-01-26] MEDS: cetirizine 10 mg Tablet PO (20:29)
--- NOTE | 2023-01-26 20:50 | PC.NURSE ---
spoke with nurse, wants patient to have early light breakfast and be made NPO after that for possible cath later in the day. Patient will be made NPO after 7am.
[2023-01-26 23:43] LABS: Partial Thromboplastin Time 79.1 SECONDS (23.9-36.7)
[2023-01-27] VITALS (13 sets, daily range): BP systolic 97–125; BP diastolic 60–89; PULSE 75–96; RESP 16–29; TEMP 36.5–36.7; O2SAT 92–99
[2023-01-27] MEDS: ipratropium-albuterol 3 mL Neb INHALATION ×4 (02:43→21:31)
[2023-01-27] MEDS: heparin drip 25,000 UNIT/500 ML PREMIX 16.03 UNIT IV (05:32)
[2023-01-27] MEDS: HYDROcodone-acetaminophen 5-325 mg Tablet 1 TAB PO ×3 (06:09→21:17)
[2023-01-27 06:20] LABS: Basophils % 0.1 %; Hemoglobin 10.1 g/dL (11.5-15.3); Lymphocytes # 1.7 10^3/uL (0.8-4.8); Lymphocytes % 12.2 %; Mean Corpuscular HGB Conc 32.6 g/dL (30.0-36.0); Mean Corpuscular Hemoglobin 30.1 pg (28.0-34.0); Mean Corpuscular Volume 92.3 fl (81-99); Mean Platelet Volume 9.9 fL (7.4-10.4); Monocytes # 0.9 10^3/uL (0.2-0.9); Monocytes % 6.2 %; Neutrophils # 11.37 10^3/uL (1.8-7.7); Neutrophils % 80.9 %; Nucleated Red Blood Cells % 0 %; Platelet Count 339 10^3/cmm (130-400); Red Blood Count 3.36 10^6/uL (4.1-5.3); Red Cell Distribution Width 13.4 % (12.1-15.1)
[2023-01-27 06:42] LABS: Albumin Level 2.9 g/dL (3.5-5.2); Anion Gap 14.4 (5-19); Blood Urea Nitrogen 35 mg/dL (8-23); Calcium 9.4 mg/dL (8.5-10.5); Carbon Dioxide 27 mmol/L (22-29); Chloride 98 mmol/L (98-107); Glucose 114 mg/dL (65-115); Phosphorus 3.5 mg/dL (2.5-4.5); Potassium 3.4 mmol/L (3.5-5.1); Sodium 136 mmol/L (136-145)
[2023-01-27 07:02] LABS: Partial Thromboplastin Time 95.4 SECONDS (23.9-36.7)
--- NOTE | 2023-01-27 08:12 | P.PN_ITS ---
Subjective Subjective: Patient is feeling better. Her BUN was found to be elevated. Denies any chest pain or chest tightness. No fever, chills or cough. Medications: Medication Review Details: Current Medications Acetaminophen (Acetaminophen 325 Mg Tablet) 650 mg PO Q6H PRN PRN Reason: Mild/Mod Pain Or Temp >/= 101 Hydrocodone Bitart/Acetaminophen (Hydrocodone-Acetaminophen 5-325 Mg Tablet) 1 tab PO Q4H PRN PRN Reason: MODERATE PAIN Last Admin: 01/27/23 06:09 Dose: 1 tab Al Hydrox/Mg Hydrox/Simethicone (Ztfi-Wxs-Sbgjznano-Osmany 30 Ml Udc) 30 ml PO Q4H PRN PRN Reason: INDIGESTION Albuterol Sulfate (Albuterol 2.5 Mg/3 Ml Neb) 2.5 mg INHALATION Q4H.RESPIRATORY PRN PRN Reason: SHORTNESS OF BREATH Last Admin: 01/24/23 10:42 Dose: 2.5 mg Albuterol/Ipratropium (Ipratropium-Albuterol 3 Ml Neb) 3 ml INHALATION Q6H.RESP BENITA Last Admin: 01/27/23 07:59 Dose: 3 ml Aspirin (Aspirin 325 Mg Tablet) 325 mg PO DAILY BENITA Last Admin: 01/26/23 09:43 Dose: 325 mg Atorvastatin Calcium (Atorvastatin 40 Mg Tablet) 40 mg PO BEDTIME BENITA Last Admin: 01/26/23 20:29 Dose: 40 mg Cetirizine HCl (Cetirizine 10 Mg Tablet) 10 mg PO BEDTIME BENITA Last Admin: 01/26/23 20:29 Dose: 10 mg Docusate Sodium (Docusate Sodium 100 Mg Capsule) 100 mg PO BID BENITA Last Admin: 01/26/23 17:01 Dose: 100 mg Furosemide (Furosemide 10 Mg/Ml Sdv 4ml) 40 mg IVP Q12H BENITA Last Admin: 01/26/23 20:31 Dose: 40 mg Heparin Sodium (Porcine) (Heparin 5,000 Unit/Ml Inj 1 Ml) 0 unit IV PRN PRN; Protocol PRN Reason: Heparin weight-base protocol Last Admin: 01/25/23 21:38 Dose: 1,000 unit Ceftriaxone Sodium 1,000 mg/ (Sodium Chloride) 50 mls @ 100 mls/hr IV Q24H BENITA; Protocol Last Infusion: 01/26/23 19:03 Dose: Infused Heparin Sodium/Sodium Chloride (Heparin Drip) 25,000 unit in 500 mls @ 0 mls/hr IV .Q0M [facility]; Protocol Last Titration: 01/27/23 07:09 Dose: 16 unit/kg/hr, 13.5 mls/hr Lorazepam (Lorazepam 1 Mg Tablet) 0.5 mg PO TID PRN PRN Reason: Anxiety Last Admin: 01/24/23 16:49 Dose: 0.5 mg Magnesium Hydroxide (Magnesium Hydroxide 30 Ml Udc) 30 ml PO Q4H PRN PRN Reason: Constipation/indigestion Methylprednisolone Sodium Succinate (Methylprednisolone Sod Succ 125 Mg/2 Ml Inj) 40 mg IVP Q12H [facility] Last Admin: 01/27/23 05:30 Dose: 40 mg Metoprolol Tartrate (Metoprolol Tartrate 25 Mg Tablet) 25 mg PO BID@0900,2100 [facility] Last Admin: 01/26/23 20:30 Dose: 25 mg Montelukast Sodium (Montelukast Sodium 10 Mg Tablet) 10 mg PO DAILY PRN PRN Reason: Allergy Symptoms Morphine Sulfate (Morphine 4 Mg/Ml Sdv 1 Ml) 2 mg IVP Q4H PRN PRN Reason: SEVERE PAIN Last Admin: 01/25/23 00:53 Dose: 2 mg Nitroglycerin (Nitroglycerin 0.4 Mg Sublingual Tablet) 0.4 mg SUBLINGUAL Q5M PRN PRN Reason: CHEST PAIN Ondansetron HCl (Ondansetron 4 Mg Tablet) 4 mg PO Q8H PRN PRN Reason: NAUSEA Ondansetron HCl (Ondansetron 2 Mg/Ml Sdv 2 Ml) 4 mg IVP Q6H PRN PRN Reason: NAUSEA AND VOMITING Potassium Chloride (Potassium Chloride Er 20 Meq Tablet) 20 meq PO DAILY [facility] Last Admin: 01/26/23 11:06 Dose: 20 meq Senna (Sennosides 8.6 Mg Tablet) 17.2 mg PO BEDTIME [facility] Last Admin: 01/26/23 17:01 Dose: 17.2 mg Tramadol HCl (Tramadol 50 Mg Tablet) 50 mg PO Q4H PRN PRN Reason: MODERATE PAIN Vitals/I&O/Wt Last Vital Signs Temp 97.7 F 01/27/23 07:54 Pulse 87 01/27/23 08:00 Resp 16 01/27/23 08:00 BP 98/62 01/27/23 07:54 Pulse Ox 94 01/27/23 08:00 O2 Del Method Nasal Cannula 01/27/23 08:00 O2 Flow Rate 1 01/27/23 08:00 01/26/23 01/27/23 01/27/23 22:59 06:59 14:59 Intake Total 732.533 / 972.533 532.371 / 1504.904 25.915 / 25.915 Output Total 1400 / 1600 850 / 2450 Balance -667.467 / -627.467 -317.629 / -945.096 25.915 / 25.915 Physical Exam Narrative: GENERAL: The patient is alert and oriented times three. Not in any acute distress. HEENT: No significant pallor, icterus or lymphadenopathy.Oral cavity: There are no mucous membrane lesions. NECK: Trachea appears to be central. No masses noted. No JVD or thyromegaly appreciated. RESPIRATORY: Breath sounds are bilaterally with a scattered coarse crackles and expiratory wheezes. Intensity of breath sounds are diminished in the bases BREASTS: Deferred. HEART: The heart sounds are normal. No S3 or S4. Systolic murmur grade 3 or 6 in the left sternal border. No diastolic murmurs. No pericardial rub ABDOMEN: No vessel pulsations or distention. No tenderness. No organomegaly appreciated. Bowel sounds are normally heard. : Deferred. RECTAL: Deferred. LYMPHATIC: No lymphadenopathy noted in the neck. EXTREMITIES: No edema or cyanosis. No clubbing. MUSCULOSKELETAL: No acute joint deformities or swelling SKIN: There are no significant rashes or ecchymosis NEUROPSYCHIATRIC: The patient is alert and oriented x3. Appears to be in a good mood. No tremors or rigidity noted. Urinary Catheter Management: Roche: Cath Placed During This Visit: no Reason for Continuing Indwelling Catheter: Other Data 01/27/23 05:50 01/27/23 05:50 Other Labs: Laboratory Last Values WBC 14.0 10^3/uL (4.0-10.0) H 01/27/23 05:50 RBC 3.36 10^6/uL (4.1-5.3) L 01/27/23 05:50 Hgb 10.1 g/dL (11.5-15.3) L 01/27/23 05:50 Hct 31.0 % (37.0-47.0) L 01/27/23 05:50 MCV 92.3 fl (81-99) 01/27/23 05:50 MCH 30.1 pg (28.0-34.0) 01/27/23 05:50 MCHC 32.6 g/dL (30.0-36.0) 01/27/23 05:50 RDW 13.4 % (12.1-15.1) 01/27/23 05:50 Plt Count 339 10^3/cmm (130-400) 01/27/23 05:50 MPV 9.9 fL (7.4-10.4) 01/27/23 05:50 Neut % (Auto) 80.9 % 01/27/23 05:50 Lymph % (Auto) 12.2 % 01/27/23 05:50 [place] % (Auto) 6.2 % 01/27/23 05:50 Eos % (Auto) 0.0 % 01/27/23 05:50 Baso % (Auto) 0.1 % 01/27/23 05:50 Neut # (Auto) 11.37 10^3/uL (1.8-7.7) H 01/27/23 05:50 Lymph # (Auto) 1.7 10^3/uL (0.8-4.8) 01/27/23 05:50 [place] # (Auto) 0.9 10^3/uL (0.2-0.9) 01/27/23 05:50 Eos # (Auto) 0.0 10^3/uL (0.0-0.8) 01/27/23 05:50 Baso # (Auto) 0.0 10^3/uL (0.0-0.1) 01/27/23 05:50 Nucleated RBC % (auto) 0 % 01/27/23 05:50 Nucleated RBCs # 0.0 /100WBC 01/27/23 05:50 APTT 95.4 SECONDS (23.9-36.7) H 01/27/23 05:50 Specimen Type Arterial 01/24/23 16:08 Sample Site Radial, right 01/24/23 16:08 ABG pH 7.43 (7.35-7.45) 01/24/23 16:08 ABG pCO2 31.1 mmHg (35-45) L 01/24/23 16:08 ABG pO2 45.2 mmHg (80.0-100.0) L 01/24/23 16:08 ABG HCO3 20.4 mmol/L (22-26) L 01/24/23 16:08 ABG O2 Saturation 85.2 01/24/23 16:08 ABG Base Excess -3.2 mmol/L (-2.0-2.0) L 01/24/23 16:08 Alejo Test Pos 01/24/23 16:08 A-a O2 Gradient 18.4 mmHg (5-10) H 01/24/23 16:08 Hematocrit 34.4 % (37-47) L 01/24/23 16:08 Hgb O2 Saturation 83.7 % (95-100) L 01/24/23 16:08 Carboxyhemoglobin 1.3 %THgb (0.4-20.1) 01/24/23 16:08 Methemoglobin 0.5 % (0.4-1.5) 01/24/23 16:08 Total Hemoglobin 11.2 g/dL (12-16) L 01/24/23 16:08 Sodium 132.0 mmol/L (131-143) 01/24/23 16:08 Potassium 3.8 mmol/L (3.5-5.0) 01/24/23 16:08 Glucose 131.0 mg/dL (70-115) H 01/24/23 16:08 Ionized Calcium 1.3 mmol/L (1.1-1.4) 01/24/23 16:08 O2 Delivery Device Nc 01/24/23 16:08 O2 Liters/Min 3.0 % 01/24/23 16:08 FiO2 32.0 % 01/24/23 16:08 Front Office Specialist ID glc 01/24/23 16:08 Sodium 136 mmol/L (136-145) 01/27/23 05:50 Potassium 3.4 mmol/L (3.5-5.1) L 01/27/23 05:50 Chloride 98 mmol/L (98-107) 01/27/23 05:50 Carbon Dioxide 27 mmol/L (22-29) 01/27/23 05:50 Anion Gap 14.4 (5-19) 01/27/23 05:50 BUN 35 mg/dL (8-23) H 01/27/23 05:50 Creatinine 1.0 mg/dL (0.5-0.9) H 01/27/23 05:50 GFR Calculation Not Reportable 01/27/23 05:50 Glucose 114 mg/dL (65-115) 01/27/23 05:50 Calculated Osmolality 276 mOsm/kg (285-295) L 01/22/23 12:27 Calcium 9.4 mg/dL (8.5-10.5) 01/27/23 05:50 Phosphorus 3.5 mg/dL (2.5-4.5) 01/27/23 05:50 Magnesium 2.0 mg/dL (1.7-2.3) 01/27/23 05:50 Total Bilirubin 0.5 mg/dL (0.15-1.2) 01/22/23 12:27 AST 25 U/L (0-32) 01/22/23 12:27 ALT 11 U/L (0-33) 01/22/23 12:27 Alkaline Phosphatase 77 U/L (35-105) 01/22/23 12:27 Troponin T Baseline 355 ng/L (0-10) H* 01/24/23 17:15 Troponin T 120 Minute 413.2 ng/L (0-10) H 01/24/23 19:25 Delta Troponin T 58.2 ABS# (0-10) H* 01/24/23 19:25 Troponin T Hi Sens 6Hr 405.3 ng/L (0-10) H 01/24/23 23:00 Troponin T Hi Sens 6Hr Delta 50.3 ng/L (0-12) H* 01/24/23 23:00 C-Reactive Protein 45.4 mg/L (0.0-4.9) H 01/22/23 12:27 NT-Pro-B Natriuret Pep 43416 pg/mL (0-450) H 01/24/23 17:15 Total Protein 8.5 g/dL (6.6-8.7) 01/22/23 12:27 Albumin 2.9 g/dL (3.5-5.2) L 01/27/23 05:50 Globulin 5.0 g/dL (1.3-4.6) H 01/22/23 12:27 Procalcitonin 0.12 ng/mL (0-0.5) 01/22/23 12:27 Urine Color Yellow (Yellow) 01/22/23 13:09 Urine Appearance Clear (CLEAR) 01/22/23 13:09 Urine pH 6 (5-7) 01/22/23 13:09 Ur Specific [place] 1.010 (1.005-1.030) 01/22/23 13:09 Urine Protein Neg (Negative) 01/22/23 13:09 Urine Glucose (UA) Norm (Normal) 01/22/23 13:09 Urine Ketones Negative (Negative) 01/22/23 13:09 Urine Blood Neg (Negative) 01/22/23 13:09 Urine Nitrate Negative (Negative) 01/22/23 13:09 Urine Bilirubin Neg (Negative) 01/22/23 13:09 Urine Urobilinogen Norm mg/dL (Negative) 01/22/23 13:09 Ur Leukocyte Esterase Negative (Negative) 01/22/23 13:09 A&P Assessment and plan (1) NSTEMI (non-ST elevated myocardial infarction): The patient's clinical features are consistent with a non-ST elevation myoc ardial infarction. May continue on the current medications. Plavix 300 mg p.o. today followed by 75 mg daily (2) Traumatic compression fracture of T12 thoracic vertebra: Management as per Dr. Walsh. Currently seems to be doing okay with no significant symptoms. (3) Pulmonary emphysema with fibrosis of lung: Management as per the pulmonary service. (4) Sepsis with acute hypoxic respiratory failure: Patient seems to have a right lower lobe pneumonia. Patient is receiving IV antibiotics. Continue other treatment measures. Apparently patient did not want to undergo artificial ventilation or any aggressive resuscitative measures (5) Cardiomyopathy: Etiology is not clear. Possibility of a stress-induced cardiomyopathy cannot be excluded. Her heart failure seems to be compensated at this time. I may hold off on the Lasix for the time being (6) Severe tricuspid regurgitation: Patient was found to have moderately severe tricuspid regurgitation. The pulmonary artery peak systolic pressure was around 63 mmHg. Plan Other problems are Elevated white cell count-pneumonia/steroid-seems improving Mild hypokalemia Elevated BUN Mild anemia Emphysema/interstitial lung disease Pulmonary hypertension I will give some careful IV hydration and repeat the BMP around noon. Patient requires a cardiac catheterization to further evaluate her coronary status as well as the hemodynamics and decide on further management. Risk and benefits of the procedure were discussed with the patient and her family in detail. The risk of bleeding, hematoma, vascular injury, myocardial infarction, myocardial perforation, malignant cardiac arrhythmias ,CVA, renal failure and other concomitant complications were explained in detail. Patient and the family understood this well and consented to proceed. We may go ahead and schedule the procedure for this afternoon, if the electrolytes and the BUN levels are acceptable. Based on the findings, further recommendations will be made. Discussed with Dr. Russell, my assessment and recommendations. Dr. Russell concurred with this plan. Attestations Medical Necessity Statement*: Patient requires continued hospital stay for close monitoring and further management Coding Level of Care Code 86873 Diagnoses NSTEMI (non-ST elevated myocardial infarction) I21.4 Traumatic compression fracture of T12 thoracic vertebra S22.080A Pulmonary emphysema with fibrosis of lung J43.9; J84.10 Sepsis with acute hypoxic respiratory failure A41.9; R65.20; J96.01 Cardiomyopathy I42.9 Severe tricuspid regurgitation I07.1
[2023-01-27] MEDS: docusate sodium 100 mg Capsule PO ×2 (08:37→17:29)
[2023-01-27] MEDS: potassium chloride ER 20 mEq Tablet PO (08:37)
[2023-01-27] MEDS: aspirin 325 mg Tablet PO (08:37)
[2023-01-27] MEDS: sodium chlor 0.9% + KCl 20 mEq 20 MEQ/1,000 ML BAG 100 MEQ IV (08:39)
--- NOTE | 2023-01-27 09:32 | PC.SOCIAL ---
IMM update IMM updated with patient. Verbalized an understanding. Copy Pg 2 provided. Initialled, dated, timed, and placed in chart.
[2023-01-27] MEDS: metoprolol tartrate 25 mg Tablet PO ×2 (09:37→21:16)
[2023-01-27] MEDS: acetaminophen 325 mg Tablet 650 MG PO (10:18)
--- NOTE | 2023-01-27 10:27 | W.PM.OPSUD ---
Surgery/Procedure H&P Update DATE OF PROCEDURE: Jan 28 2023 DATE H&P PERFORMED: 01/25/23 H&P UPDATE INFORMATION: I have reviewed H&P completed within last 30 days, I have examined patient prior to procedure and No changes to prior documentation PREOP DIAGNOSIS: Non-ST relation myocardial infarction/LV systolic dysfunction PRIMARY INDICATION FOR PROCEDURE: Acute heart failure, non-ST elevation myocardial infarction, LV systolic dysfunction, moderately severe tricuspid regurgitation and pulmonary hypertension PLANNED PROCEDURE: Left and right heart catheterization with coronary angiogram and possible PCI PATIENT REASSESSED PRIOR TO SEDATION, WITH NO CHANGE NOTED: Yes PHYSICAL EXAM: alert, oriented x 3, clear to auscultation bilaterally and regular rate & rhythm AIRWAY EVAL/ANESTHESIA PLAN: normal airway, see other exam findings, ASA III, Monitored Anesthesia, Local Anesthesia, Risks, benefits & alternatives of sedation and/or procedure discussed and Patient agrees to continue as planned
[2023-01-27] MEDS: lidocaine 5% Patch 1 PATCH TOPICAL (10:58)
[2023-01-27] MEDS: clopidogrel 300 mg Tablet PO (10:58)
--- NOTE | 2023-01-27 12:05 | PM.PN ---
Subjective Subjective: Patient reports she is feeling better today. Reports she slept better and in one spot on the bed. Denies any severe coughing fits overnight. Denies fevers, chills, nausea, emesis, or chest heaviness. Medications: Reviewed: Yes Vitals/I&O/Wt Last Vital Signs Temp 98.0 F 01/27/23 11:27 Pulse 82 01/27/23 11:27 Resp 23 H 01/27/23 11:27 BP 116/69 01/27/23 11:27 Pulse Ox 96 01/27/23 11:27 O2 Del Method Nasal Cannula 01/27/23 11:27 O2 Flow Rate 1 01/27/23 11:27 01/26/23 01/27/23 01/27/23 22:59 06:59 14:59 Intake Total 732.533 / 972.533 532.371 / 1504.904 25.915 / 25.915 Output Total 1400 / 1600 850 / 2450 Balance -667.467 / -627.467 -317.629 / -945.096 25.915 / 25.915 Physical Exam Narrative: General: Patient is awake. Alert. Head: Normocephalic. Atraumatic. EOM intact. Neck: No JVD. Cardiovascular: RRR. No gallops. No murmurs. Lungs: Rales in right lung base. No wheezing. Skin: No jaundice. No rashes. Abdomen: Normal bowel sounds, abdomen soft and nontender. Genito Urinary: Genital exam not performed since complaints not related. Rectal: Rectal exam not performed since no symptoms indicated blood loss. Extremities: No cyanosis or clubbing. Musculoskeletal: No swollen or erythematous joints. Neurological: Moves all 4 extremities. No myoclonus. Urinary Catheter Management: Roche: Cath Placed During This Visit: no Reason for Continuing Indwelling Catheter: Other Data 01/27/23 05:50 01/27/23 05:50 A&P Assessment and plan (1) Right lower lobe pneumonia: Pulmonary evaluated, follow up with Dr Stokes on Saturday Continue ceftriaxone (01/22-P) Status post azithromycin Continue diuresis Continue steroids Continue breathing treatments Supplemental oxygen as needed Encourage pulmonary toilet (2) NSTEMI (non-ST elevated myocardial infarction): Continue aspirin Continue high intensity statin Continue metoprolol Continue heparin ip NTG PRN TTE reviewed, multiple abnormalities Telemetry Cardiology consulted, d/w Dr. Hardwick Planning for ischemic work up with cardiac cath pending renal function (3) T12 vertebral fracture: Acute T12 fracture secondary to mechanical fall Status post kyphoplasty on 01/23 (4) Fall: Fall precautions (5) Hyponatremia: Continue to monitor (6) Leukocytosis: Either 2/2 PNA versus stress induced CAP w/u as above Trend (7) Allergic rhinitis: Continue Zyrtec Continue Montelukast Plan DVT ppx: Heparin Drip Code Status: DNR Attestations Medical Necessity Statement*: Patient requires ongoing hospitalization for heparin drip, cardiology evaluation including potential ischemic evaluation, pulmonary evaluation, supplemental oxygen, IV steroids, and supportive care. Coding Level of Care Code Acute Code for g [facility]wd Diagnoses Right lower lobe pneumonia J18.9 NSTEMI (non-ST elevated myocardial infarction) I21.4 T12 vertebral fracture S22.089A Fall W19.XXXA Hyponatremia E87.1 Leukocytosis D72.829 Allergic rhinitis J30.9
[2023-01-27 12:48] LABS: Partial Thromboplastin Time 45.7 SECONDS (23.9-36.7)
[2023-01-27 12:56] LABS: Blood Urea Nitrogen 38 mg/dL (8-23); Calcium 9.3 mg/dL (8.5-10.5); Carbon Dioxide 21 mmol/L (22-29); Chloride 97 mmol/L (98-107); Glucose 106 mg/dL (65-115); Osmolality Calculated 285 mOsm/kg (285-295); Sodium 133 mmol/L (136-145)
[2023-01-27 12:58] LABS: Anion Gap 18.7 (5-19); Potassium 3.7 mmol/L (3.5-5.1)
--- NOTE | 2023-01-27 13:20 | PC.NURSE ---
Addendum entered by Lele Steven RN 01/27/23 13:23: Dr Jeffers notified regarding pt and family decision. Code status change to Full. Dr Russell stated okay to change the code status in the chart. Original Note: Code Status Pt and family asked about AND code status and Patient wished to be resuscitated but does not want to be on a ventilator for a long time after discussion on the difference between AND and Full. Pt stated, They can try to resuscitate me but if i don't come back then just let me go.
[2023-01-27] MEDS: diphenhydrAMINE 50 mg Capsule PO (14:09)
[2023-01-27] MEDS: cefTRIAXone 1,000 MG in sodium chloride 0.9% (plus) 50 ML 100 MG IV (17:27)
[2023-01-27] MEDS: atorvastatin 40 mg Tablet PO (21:16)
[2023-01-27] MEDS: cetirizine 10 mg Tablet PO (21:17)
[2023-01-27] MEDS: heparin 5,000 unit/mL INJ 1 mL IV (22:40)
[2023-01-28] VITALS (61 sets, daily range): BP systolic 94–119; BP diastolic 50–85; PULSE 77–103; RESP 18–37; TEMP 36.3–37; O2SAT 91–97
[2023-01-28] MEDS: ipratropium-albuterol 3 mL Neb INHALATION ×3 (02:22→15:05)
[2023-01-28] MEDS: HYDROcodone-acetaminophen 5-325 mg Tablet 1 TAB PO ×4 (03:05→20:30)
[2023-01-28 04:07] LABS: Basophils % 0.2 %; Hematocrit 33.8 % (37.0-47.0); Lymphocytes # 1.8 10^3/uL (0.8-4.8); Lymphocytes % 13.8 %; Mean Corpuscular HGB Conc 32.5 g/dL (30.0-36.0); Mean Corpuscular Volume 92.1 fl (81-99); Mean Platelet Volume 9.9 fL (7.4-10.4); Monocytes # 0.8 10^3/uL (0.2-0.9); Monocytes % 6.4 %; Neutrophils # 10.12 10^3/uL (1.8-7.7); Neutrophils % 78.7 %; Nucleated Red Blood Cells % 0 %; Platelet Count 392 10^3/cmm (130-400); Red Blood Count 3.67 10^6/uL (4.1-5.3); Red Cell Distribution Width 13.2 % (12.1-15.1); White Blood Count 12.8 10^3/uL (4.0-10.0)
[2023-01-28 04:23] LABS: Partial Thromboplastin Time 92.2 SECONDS (23.9-36.7)
[2023-01-28 04:26] LABS: Albumin Level 3.3 g/dL (3.5-5.2); Anion Gap 17.2 (5-19); Blood Urea Nitrogen 31 mg/dL (8-23); Calcium 9.7 mg/dL (8.5-10.5); Carbon Dioxide 24 mmol/L (22-29); Chloride 95 mmol/L (98-107); Glucose 104 mg/dL (65-115); Magnesium 2.1 mg/dL (1.7-2.3); Osmolality Calculated 283 mOsm/kg (285-295); Phosphorus 2.3 mg/dL (2.5-4.5); Potassium 3.2 mmol/L (3.5-5.1); Sodium 133 mmol/L (136-145)
--- NOTE | 2023-01-28 04:30 | PC.NURSE ---
PTT still pending in lab.
[2023-01-28] MEDS: sodium chloride 0.9% 1,000 ML 50 ML IV (05:00)
[2023-01-28] MEDS: potassium chloride ER 20 mEq Tablet PO (08:21)
[2023-01-28] MEDS: aspirin 325 mg Tablet PO (08:21)
[2023-01-28] MEDS: docusate sodium 100 mg Capsule PO (08:22)
[2023-01-28] MEDS: metoprolol tartrate 25 mg Tablet PO ×2 (08:25→22:25)
[2023-01-28] MEDS: lidocaine 5% Patch 1 PATCH TOPICAL (08:28)
--- NOTE | 2023-01-28 08:28 | PM.PN ---
Subjective Subjective: The cardiac colorization was postponed yesterday because of the rising BUN. The patient is feeling okay . Somewhat nervous and anxious today. Her BUN came down to 31. The creatinine was 0.9. No fever or chills. Medications: Medication Review Details: Current Medications Acetaminophen (Acetaminophen 325 Mg Tablet) 650 mg PO Q6H PRN PRN Reason: Mild/Mod Pain Or Temp >/= 101 Last Admin: 01/27/23 10:18 Dose: 650 mg Hydrocodone Bitart/Acetaminophen (Hydrocodone-Acetaminophen 5-325 Mg Tablet) 1 tab PO Q4H PRN PRN Reason: MODERATE PAIN Last Admin: 01/28/23 08:21 Dose: 1 tab Al Hydrox/Mg Hydrox/Simethicone (Qttk-Ubu-Jadvjawnv-Osmany 30 Ml Udc) 30 ml PO Q4H PRN PRN Reason: INDIGESTION Albuterol Sulfate (Albuterol 2.5 Mg/3 Ml Neb) 2.5 mg INHALATION Q4H.RESPIRATORY PRN PRN Reason: SHORTNESS OF BREATH Last Admin: 01/24/23 10:42 Dose: 2.5 mg Albuterol/Ipratropium (Ipratropium-Albuterol 3 Ml Neb) 3 ml INHALATION Q6H.RESP [facility] Last Admin: 01/28/23 07:51 Dose: 3 ml Aspirin (Aspirin 325 Mg Tablet) 325 mg PO DAILY [facility] Last Admin: 01/28/23 08:21 Dose: 325 mg Atorvastatin Calcium (Atorvastatin 40 Mg Tablet) 40 mg PO BEDTIME [facility] Last Admin: 01/27/23 21:16 Dose: 40 mg Cetirizine HCl (Cetirizine 10 Mg Tablet) 10 mg PO BEDTIME [facility] Last Admin: 01/27/23 21:17 Dose: 10 mg Docusate Sodium (Docusate Sodium 100 Mg Capsule) 100 mg PO BID [facility] Last Admin: 01/28/23 08:22 Dose: 100 mg Furosemide (Furosemide 10 Mg/Ml Sdv 4ml) 40 mg IVP Q12H [facility] Last Admin: 01/27/23 09:39 Dose: Not Given Heparin Sodium (Porcine) (Heparin 5,000 Unit/Ml Inj 1 Ml) 0 unit IV PRN PRN; Protocol PRN Reason: Heparin weight-base protocol Last Admin: 01/27/23 22:40 Dose: 2,000 unit Ceftriaxone Sodium 1,000 mg/ (Sodium Chloride) 50 mls @ 100 mls/hr IV Q24H [facility]; Protocol Last Infusion: 01/27/23 17:58 Dose: Infused Heparin Sodium/Sodium Chloride (Heparin Drip) 25,000 unit in 500 mls @ 0 mls/hr IV .Q0M [facility]; Protocol Last Titration: 01/28/23 05:13 Dose: 18.96 unit/kg/hr, 16 mls/hr Potassium Chloride/Sodium Chloride (Sodium Chlor 0.9% + Kcl 20 Meq) 20 meq in 1,000 mls @ 0 mls/hr IV .Q10H [facility] Last Admin: 01/27/23 08:39 Dose: 100 mls/hr Sodium Chloride (Sodium Chloride 0.9%) 1,000 mls @ 50 mls/hr IV .Q20H ONE Stop: 01/28/23 19:59 Last Admin: 01/28/23 05:00 Dose: 50 mls/hr Lidocaine (Lidocaine 5% Patch) 1 patch TOPICAL [id number] [facility] Last Admin: 01/28/23 08:28 Dose: 1 patch Magnesium Hydroxide (Magnesium Hydroxide 30 Ml Udc) 30 ml PO Q4H PRN PRN Reason: Constipation/indigestion Methylprednisolone Sodium Succinate (Methylprednisolone Sod Succ 125 Mg/2 Ml Inj) 40 mg IVP Q12H [facility] Last Admin: 01/27/23 17:29 Dose: 40 mg Metoprolol Tartrate (Metoprolol Tartrate 25 Mg Tablet) 25 mg PO BID@0900,2100 [facility] Last Admin: 01/28/23 08:25 Dose: 25 mg Montelukast Sodium (Montelukast Sodium 10 Mg Tablet) 10 mg PO DAILY PRN PRN Reason: Allergy Symptoms Morphine Sulfate (Morphine 4 Mg/Ml Sdv 1 Ml) 2 mg IVP Q4H PRN PRN Reason: SEVERE PAIN Last Admin: 01/25/23 00:53 Dose: 2 mg Nitroglycerin (Nitroglycerin 0.4 Mg Sublingual Tablet) 0.4 mg SUBLINGUAL Q5M PRN PRN Reason: CHEST PAIN Ondansetron HCl (Ondansetron 4 Mg Tablet) 4 mg PO Q8H PRN PRN Reason: NAUSEA Ondansetron HCl (Ondansetron 2 Mg/Ml Sdv 2 Ml) 4 mg IVP Q6H PRN PRN Reason: NAUSEA AND VOMITING Potassium Chloride (Potassium Chloride Er 20 Meq Tablet) 20 meq PO DAILY [facility] Last Admin: 01/28/23 08:21 Dose: 20 meq Senna (Sennosides 8.6 Mg Tablet) 17.2 mg PO BEDTIME [facility] Last Admin: 01/27/23 21:40 Dose: Not Given Tramadol HCl (Tramadol 50 Mg Tablet) 50 mg PO Q4H PRN PRN Reason: MODERATE PAIN Vitals/I&O/Wt Last Vital Signs Temp 98.6 F 01/28/23 04:00 Pulse 90 01/28/23 07:55 Resp 20 H 01/28/23 07:51 BP 119/75 01/28/23 04:00 Pulse Ox 93 01/28/23 07:51 O2 Del Method Room Air 01/28/23 07:51 O2 Flow Rate 1 01/27/23 11:27 01/27/23 01/28/23 01/28/23 22:59 06:59 14:59 Intake Total 639.6 / 746.290 117.3 / 863.590 Output Total 220 / 220 860 / 1080 Balance 419.6 / 526.290 -742.7 / -216.410 Physical Exam Narrative: GENERAL: The patient is alert and oriented times three. Not in any acute distress. HEENT: No significant pallor, icterus or lymphadenopathy.Oral cavity: There are no mucous membrane lesions. NECK: Trachea appears to be central. No masses noted. No JVD or thyromegaly appreciated. RESPIRATORY: Breath sounds are bilaterally with a scattered coarse crackles and expiratory wheezes. Intensity of breath sounds are diminished in the bases BREASTS: Deferred. HEART: The heart sounds are normal. No S3 or S4. Systolic murmur grade 3 or 6 in the left sternal border. No diastolic murmurs. No pericardial rub ABDOMEN: No vessel pulsations or distention. No tenderness. No organomegaly appreciated. Bowel sounds are normally heard. : Deferred. RECTAL: Deferred. LYMPHATIC: No lymphadenopathy noted in the neck. EXTREMITIES: No edema or cyanosis. No clubbing. MUSCULOSKELETAL: No acute joint deformities or swelling SKIN: There are no significant rashes or ecchymosis NEUROPSYCHIATRIC: The patient is alert and oriented x3. Appears to be in a good mood. No tremors or rigidity noted. Urinary Catheter Management: Roche: Cath Placed During This Visit: no Reason for Continuing Indwelling Catheter: Other Data 01/28/23 02:57 01/28/23 02:57 Other Labs: Laboratory Last Values WBC 12.8 10^3/uL (4.0-10.0) H 01/28/23 02:57 RBC 3.67 10^6/uL (4.1-5.3) L 01/28/23 02:57 Hgb 11.0 g/dL (11.5-15.3) L 01/28/23 02:57 Hct 33.8 % (37.0-47.0) L 01/28/23 02:57 MCV 92.1 fl (81-99) 01/28/23 02:57 MCH 30.0 pg (28.0-34.0) 01/28/23 02:57 MCHC 32.5 g/dL (30.0-36.0) 01/28/23 02:57 RDW 13.2 % (12.1-15.1) 01/28/23 02:57 Plt Count 392 10^3/cmm (130-400) 01/28/23 02:57 MPV 9.9 fL (7.4-10.4) 01/28/23 02:57 Neut % (Auto) 78.7 % 01/28/23 02:57 Lymph % (Auto) 13.8 % 01/28/23 02:57 Towns % (Auto) 6.4 % 01/28/23 02:57 Eos % (Auto) 0.0 % 01/28/23 02:57 Baso % (Auto) 0.2 % 01/28/23 02:57 Neut # (Auto) 10.12 10^3/uL (1.8-7.7) H 01/28/23 02:57 Lymph # (Auto) 1.8 10^3/uL (0.8-4.8) 01/28/23 02:57 Towns # (Auto) 0.8 10^3/uL (0.2-0.9) 01/28/23 02:57 Eos # (Auto) 0.0 10^3/uL (0.0-0.8) 01/28/23 02:57 Baso # (Auto) 0.0 10^3/uL (0.0-0.1) 01/28/23 02:57 Nucleated RBC % (auto) 0 % 01/28/23 02:57 Nucleated RBCs # 0.0 /100WBC 01/28/23 02:57 APTT 92.2 SECONDS (23.9-36.7) H D 01/28/23 02:57 Specimen Type Arterial 01/24/23 16:08 Sample Site Radial, right 01/24/23 16:08 ABG pH 7.43 (7.35-7.45) 01/24/23 16:08 ABG pCO2 31.1 mmHg (35-45) L 01/24/23 16:08 ABG pO2 45.2 mmHg (80.0-100.0) L 01/24/23 16:08 ABG HCO3 20.4 mmol/L (22-26) L 01/24/23 16:08 ABG O2 Saturation 85.2 01/24/23 16:08 ABG Base Excess -3.2 mmol/L (-2.0-2.0) L 01/24/23 16:08 Alejo Test Pos 01/24/23 16:08 A-a O2 Gradient 18.4 mmHg (5-10) H 01/24/23 16:08 Hematocrit 34.4 % (37-47) L 01/24/23 16:08 Hgb O2 Saturation 83.7 % (95-100) L 01/24/23 16:08 Carboxyhemoglobin 1.3 %THgb (0.4-20.1) 01/24/23 16:08 Methemoglobin 0.5 % (0.4-1.5) 01/24/23 16:08 Total Hemoglobin 11.2 g/dL (12-16) L 01/24/23 16:08 Sodium 132.0 mmol/L (131-143) 01/24/23 16:08 Potassium 3.8 mmol/L (3.5-5.0) 01/24/23 16:08 Glucose 131.0 mg/dL (70-115) H 01/24/23 16:08 Ionized Calcium 1.3 mmol/L (1.1-1.4) 01/24/23 16:08 O2 Delivery Device Nc 01/24/23 16:08 O2 Liters/Min 3.0 % 01/24/23 16:08 FiO2 32.0 % 01/24/23 16:08 Hospital Unit Clerk ID glc 01/24/23 16:08 Sodium 133 mmol/L (136-145) L 01/28/23 02:57 Potassium 3.2 mmol/L (3.5-5.1) L 01/28/23 02:57 Chloride 95 mmol/L (98-107) L 01/28/23 02:57 Carbon Dioxide 24 mmol/L (22-29) 01/28/23 02:57 Anion Gap 17.2 (5-19) 01/28/23 02:57 BUN 31 mg/dL (8-23) H 01/28/23 02:57 Creatinine 0.9 mg/dL (0.5-0.9) 01/28/23 02:57 GFR Calculation Not Reportable 01/28/23 02:57 Glucose 104 mg/dL (65-115) 01/28/23 02:57 Calculated Osmolality 283 mOsm/kg (285-295) L 01/28/23 02:57 Calcium 9.7 mg/dL (8.5-10.5) 01/28/23 02:57 Phosphorus 2.3 mg/dL (2.5-4.5) L 01/28/23 02:57 Magnesium 2.1 mg/dL (1.7-2.3) 01/28/23 02:57 Total Bilirubin 0.5 mg/dL (0.15-1.2) 01/22/23 12:27 AST 25 U/L (0-32) 01/22/23 12:27 ALT 11 U/L (0-33) 01/22/23 12:27 Alkaline Phosphatase 77 U/L (35-105) 01/22/23 12:27 Troponin T Baseline 355 ng/L (0-10) H* 01/24/23 17:15 Troponin T 120 Minute 413.2 ng/L (0-10) H 01/24/23 19:25 Delta Troponin T 58.2 ABS# (0-10) H* 01/24/23 19:25 Troponin T Hi Sens 6Hr 405.3 ng/L (0-10) H 01/24/23 23:00 Troponin T Hi Sens 6Hr Delta 50.3 ng/L (0-12) H* 01/24/23 23:00 C-Reactive Protein 45.4 mg/L (0.0-4.9) H 01/22/23 12:27 NT-Pro-B Natriuret Pep 59841 pg/mL (0-450) H 01/24/23 17:15 Total Protein 8.5 g/dL (6.6-8.7) 01/22/23 12:27 Albumin 3.3 g/dL (3.5-5.2) L 01/28/23 02:57 Globulin 5.0 g/dL (1.3-4.6) H 01/22/23 12:27 Procalcitonin 0.12 ng/mL (0-0.5) 01/22/23 12:27 Urine Color Yellow (Yellow) 01/22/23 13:09 Urine Appearance Clear (CLEAR) 01/22/23 13:09 Urine pH 6 (5-7) 01/22/23 13:09 Ur Specific [place] 1.010 (1.005-1.030) 01/22/23 13:09 Urine Protein Neg (Negative) 01/22/23 13:09 Urine Glucose (UA) Norm (Normal) 01/22/23 13:09 Urine Ketones Negative (Negative) 01/22/23 13:09 Urine Blood Neg (Negative) 01/22/23 13:09 Urine Nitrate Negative (Negative) 01/22/23 13:09 Urine Bilirubin Neg (Negative) 01/22/23 13:09 Urine Urobilinogen Norm mg/dL (Negative) 01/22/23 13:09 Ur Leukocyte Esterase Negative (Negative) 01/22/23 13:09 A&P Assessment and plan (1) NSTEMI (non-ST elevated myocardial infarction): (2) Traumatic compression fracture of T12 thoracic vertebra: Management as per Dr. Walsh. Currently seems to be doing okay with no significant symptoms. (3) Pulmonary emphysema with fibrosis of lung: Management as per the pulmonary service. (4) Sepsis with acute hypoxic respiratory failure: Patient clinically seems to have improved. Currently he is afebrile. May continue on the current management. (5) Cardiomyopathy: Etiology is not clear. Possibility of a stress-induced cardiomyopathy cannot be excluded. Her heart failure seems to be compensated at this time. May give IV Lasix as needed (6) Severe tricuspid regurgitation: Patient was found to have moderately severe tricuspid regurgitation. The pulmonary artery peak systolic pressure was around 63 mmHg. Plan Other problems are Elevated white cell count-pneumonia/steroid-seems improving Mild hypokalemia, will give next dose of potassium today Elevated BUN, improving Mild anemia, seems stable Emphysema/interstitial lung disease Pulmonary hypertension Patient requires a cardiac catheterization to further evaluate her coronary status as well as the hemodynamics and decide on further management. Risk and benefits of the procedure were discussed with the patient and her family in detail. The risk of bleeding, hematoma, vascular injury, myocardial infarction, myocardial perforation, malignant cardiac arrhythmias ,CVA, renal failure and other concomitant complications were explained in detail. Patient and the family understood this well and consented to proceed. Since her BUN and creatinine levels are coming down, it may be appropriate to go ahead with the procedure. Even now, she carries a higher risk for contrast-induced nephropathy. Patient and the family seem to understand this well. Based on the angiogram findings, further recommendations will be made. She is scheduled for the procedure this evening Attestations Medical Necessity Statement*: Patient requires continued hospital stay for close monitoring and further management Coding Level of Care Code 30273 Diagnoses NSTEMI (non-ST elevated myocardial infarction) I21.4 Traumatic compression fracture of T12 thoracic vertebra S22.080A Pulmonary emphysema with fibrosis of lung J43.9; J84.10 Sepsis with acute hypoxic respiratory failure A41.9; R65.20; J96.01 Cardiomyopathy I42.9 Severe tricuspid regurgitation I07.1
[2023-01-28] MEDS: potassium chloride oral liq 20 mEq/15 mL UDC PO (09:37)
[2023-01-28 09:56] LABS: Partial Thromboplastin Time 48.9 SECONDS (23.9-36.7)
[2023-01-28] MEDS: heparin 5,000 unit/mL INJ 1 mL IV (10:25)
--- NOTE | 2023-01-28 15:34 | PM.PN ---
Subjective Subjective: Planned for cardiac cath this afternoon. No acute interim events Medications: Reviewed: Yes Medication Review Details: Current Medications Acetaminophen (Acetaminophen 325 Mg Tablet) 650 mg PO Q6H PRN PRN Reason: Mild/Mod Pain Or Temp >/= 101 Last Admin: 01/27/23 10:18 Dose: 650 mg Hydrocodone Bitart/Acetaminophen (Hydrocodone-Acetaminophen 5-325 Mg Tablet) 1 tab PO Q4H PRN PRN Reason: MODERATE PAIN Last Admin: 01/28/23 08:21 Dose: 1 tab Al Hydrox/Mg Hydrox/Simethicone (Vmcy-Nqe-Mknzwxizc-Osmany 30 Ml Udc) 30 ml PO Q4H PRN PRN Reason: INDIGESTION Albuterol Sulfate (Albuterol 2.5 Mg/3 Ml Neb) 2.5 mg INHALATION Q4H.RESPIRATORY PRN PRN Reason: SHORTNESS OF BREATH Last Admin: 01/24/23 10:42 Dose: 2.5 mg Albuterol/Ipratropium (Ipratropium-Albuterol 3 Ml Neb) 3 ml INHALATION Q6H.RESP BENITA Last Admin: 01/28/23 07:51 Dose: 3 ml Aspirin (Aspirin 325 Mg Tablet) 325 mg PO DAILY [facility] Last Admin: 01/28/23 08:21 Dose: 325 mg Atorvastatin Calcium (Atorvastatin 40 Mg Tablet) 40 mg PO BEDTIME [facility] Last Admin: 01/27/23 21:16 Dose: 40 mg Cetirizine HCl (Cetirizine 10 Mg Tablet) 10 mg PO BEDTIME [facility] Last Admin: 01/27/23 21:17 Dose: 10 mg Docusate Sodium (Docusate Sodium 100 Mg Capsule) 100 mg PO BID [facility] Last Admin: 01/28/23 08:22 Dose: 100 mg Furosemide (Furosemide 10 Mg/Ml Sdv 4ml) 40 mg IVP Q12H [facility] Last Admin: 01/27/23 09:39 Dose: Not Given Heparin Sodium (Porcine) (Heparin 5,000 Unit/Ml Inj 1 Ml) 0 unit IV PRN PRN; Protocol PRN Reason: Heparin weight-base protocol Last Admin: 01/27/23 22:40 Dose: 2,000 unit Ceftriaxone Sodium 1,000 mg/ (Sodium Chloride) 50 mls @ 100 mls/hr IV Q24H [facility]; Protocol Last Infusion: 01/27/23 17:58 Dose: Infused Heparin Sodium/Sodium Chloride (Heparin Drip) 25,000 unit in 500 mls @ 0 mls/hr IV .Q0M [facility]; Protocol Last Titration: 01/28/23 05:13 Dose: 18.96 unit/kg/hr, 16 mls/hr Potassium Chloride/Sodium Chloride (Sodium Chlor 0.9% + Kcl 20 Meq) 20 meq in 1,000 mls @ 0 mls/hr IV .Q10H [facility] Last Admin: 01/27/23 08:39 Dose: 100 mls/hr Sodium Chloride (Sodium Chloride 0.9%) 1,000 mls @ 50 mls/hr IV .Q20H ONE Stop: 01/28/23 19:59 Last Admin: 01/28/23 05:00 Dose: 50 mls/hr Lidocaine (Lidocaine 5% Patch) 1 patch TOPICAL [id number] [facility] Last Admin: 01/28/23 08:28 Dose: 1 patch Magnesium Hydroxide (Magnesium Hydroxide 30 Ml Udc) 30 ml PO Q4H PRN PRN Reason: Constipation/indigestion Methylprednisolone Sodium Succinate (Methylprednisolone Sod Succ 125 Mg/2 Ml Inj) 40 mg IVP Q12H [facility] Last Admin: 01/27/23 17:29 Dose: 40 mg Metoprolol Tartrate (Metoprolol Tartrate 25 Mg Tablet) 25 mg PO BID@0900,2100 [facility] Last Admin: 01/28/23 08:25 Dose: 25 mg Montelukast Sodium (Montelukast Sodium 10 Mg Tablet) 10 mg PO DAILY PRN PRN Reason: Allergy Symptoms Morphine Sulfate (Morphine 4 Mg/Ml Sdv 1 Ml) 2 mg IVP Q4H PRN PRN Reason: SEVERE PAIN Last Admin: 01/25/23 00:53 Dose: 2 mg Nitroglycerin (Nitroglycerin 0.4 Mg Sublingual Tablet) 0.4 mg SUBLINGUAL Q5M PRN PRN Reason: CHEST PAIN Ondansetron HCl (Ondansetron 4 Mg Tablet) 4 mg PO Q8H PRN PRN Reason: NAUSEA Ondansetron HCl (Ondansetron 2 Mg/Ml Sdv 2 Ml) 4 mg IVP Q6H PRN PRN Reason: NAUSEA AND VOMITING Potassium Chloride (Potassium Chloride Er 20 Meq Tablet) 20 meq PO DAILY [facility] Last Admin: 01/28/23 08:21 Dose: 20 meq Senna (Sennosides 8.6 Mg Tablet) 17.2 mg PO BEDTIME [facility] Last Admin: 01/27/23 21:40 Dose: Not Given Tramadol HCl (Tramadol 50 Mg Tablet) 50 mg PO Q4H PRN PRN Reason: MODERATE PAIN Vitals/I&O/Wt Last Vital Signs Temp 98.6 F 01/28/23 04:00 Pulse 98 01/28/23 15:05 Resp 20 H 01/28/23 15:05 BP 109/65 01/28/23 08:00 Pulse Ox 91 01/28/23 15:05 O2 Del Method Room Air 01/28/23 15:05 O2 Flow Rate 1 01/27/23 11:27 01/28/23 01/28/23 01/28/23 06:59 14:59 22:59 Intake Total 117.3 / 863.590 440 / 440 Output Total 860 / 1080 350 / 350 Balance -742.7 / -216.410 90 / 90 Physical Exam Narrative: General: No acute distress, AO x3 HEENT: PERRLA, pupils bilaterally equal and reactive, pallors not present Chest: Normal vesicular breath sounds, no added sounds, equal good air entry bilaterally CVS: S1-S2 regular, no murmurs, no tachycardia, no gallops, no rubs Abdomen: Soft, nontender, no organomegaly, bowel sounds present Neuro: No focal deficits, no facial deformity, AO x3, power 5/5 in all limbs Urinary Catheter Management: Roche: Cath Placed During This Visit: no Reason for Continuing Indwelling Catheter: Other Data 01/28/23 02:57 01/28/23 02:57 A&P Assessment and plan (1) Right lower lobe pneumonia: Stop ceftriaxone today, completed empiric 7 day course(01/22-P) Status post azithromycin Continue diuresis Continue steroids for suspected ILD Continue breathing treatments Supplemental oxygen as needed Encourage pulmonary toilet (2) NSTEMI (non-ST elevated myocardial infarction): Continue aspirin Continue high intensity statin Continue metoprolol Continue heparin drip. held today for the procedure at 12 TTE reviewed, Severe diffuse hypokinesia of the mid and apical septum, ?anteroseptum, inferior, apical lateral and LV apex.? The LV ?ejection fraction is 41%.Grade I/IV diastolic dysfunction Telemetry Cardiology consulted, d/w Dr. Hardwick Planning for ischemic work up with cardiac cath today (3) T12 vertebral fracture: Acute T12 fracture secondary to mechanical fall Status post kyphoplasty on 01/23 (4) Fall: Fall precautions (5) Hyponatremia: Continue to monitor (6) Leukocytosis: Either 2/2 PNA versus stress induced CAP w/u as above Trend (7) Allergic rhinitis: Continue Zyrtec Continue Montelukast Plan DVT ppx: Heparin Drip Code Status: DNR Attestations Medical Necessity Statement*: cardiac cath today Coding Level of Care Code Acute Code for Chg Fwd Diagnoses Right lower lobe pneumonia J18.9 NSTEMI (non-ST elevated myocardial infarction) I21.4 T12 vertebral fracture S22.089A Fall W19.XXXA Hyponatremia E87.1 Leukocytosis D72.829 Allergic rhinitis J30.9
--- NOTE | 2023-01-28 16:30 | XACV_ITS ---
Exam Room: [facility] Ht: 157 cm Wt: 50 kg BSA: 1.48 m2 Gender: Female : 1940 Any Known Allergies: Demerol Exam Priority: Routine Indication(s): - Non-ST elevation MS Procedure(s): Procedure Description: Diagnostic procedure Procedure Description: Left Heart Catheterization Procedure Description: Right Heart Catheterization Procedure Description: Left ventriculography Procedure Description: Coronary Angiography Ronen SHORT; Diagnostic Cath Status: Urgent Diagnostic Findings * The left main is a medium caliber vessel which was found to have aneurysmal dilatation in the proximal and mid segment. Moderate calcification was noted at the ostium of the left main. * Left interesting artery is a medium caliber vessel which appears to be totally occluded after giving of the second diagonal branch. The proximal and the mid segment of the artery was found to be heavily calcified. Heavy calcification with a filling defects were noted in the mid segment of the artery. The first and the second septal perforators were found to have high-grade ostial stenosis.. * The circumflex artery is a medium caliber nondominant vessel with around 50% narrowing near the ostium. Just before the takeoff of the first obtuse marginal branch, the artery was found to be tortuous with around 70% tubular narrowing. * The right coronary artery is a medium caliber dominant vessel which was found to have moderate diffuse irregular calcification in the proximal and the mid segment. The mid segment of the artery was found to have some features of fibromuscular dysplasia.. Conclusions 1. 1. 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 2. Total occlusion of the distal LAD with grade 1-2 right left collaterals. High-grade complex lesion in the mid LAD 3. High-grade complex lesion near the ostium of the first obtuse marginal branch.4. Heavy calcification in the proximal to mid segment of the left anterior descending artery, circumflex and right coronary artery. The right heart catheterization revealed PA pressure of 65/32 with a mean of 44. Pulmonary capillary wedge pressure of 25. Right ventricular pressure 59/1 with a right atrial mean pressure of 11 mmHg 4.. 2. I reviewed and discussed the cardiac catheterization data with the Dr. Almazan. Patient's coronary lesions very complex. The arteries are heavily calcified. In view of the above findings, it was thought to be appropriate to optimize the medical treatment. Diagnostic RX Recommendation: medical therapy and/or counseling Ventriculography Ejection Fraction: 40.0 % Left Ventriculography Findings: * Left ventriculogram was performed in Empty view. * The LV gram was performed in the LYN projection. The LV * c * avity appears to be upper limit of normal. There was moderate diffuse hypokinesia of the anteroapical wall and the LV apex. Overall LV ejection fraction around 40% no filling defects or any significant mitral valve prolapse or mitral regurgitation... Pressures Phase:Rest AO : / ( 0 ) @ 5:48:00 PM 143 / 83 ( 109 ) @ 6:20:00 PM 137 / 80 ( 106 ) @ 6:34:00 PM 126 / 64 ( 94 ) @ 6:41:00 PM 126 / 65 ( 95 ) @ 6:41:00 PM LV : 140 / -10 / 18 @ 6:40:00 PM 121 / -15 / 11 @ 6:41:00 PM 123 / -15 / 11 @ 6:41:00 PM RV : 58 / -2 / 15 @ 6:11:00 PM 59 / -1 / 16 @ 6:15:00 PM PA : 65 / 32 ( 44 ) @ 6:14:00 PM RA : a wave = 14 v wave = 14 mean = 11 @ 6:16:00 PM PCW : a wave = 27 v wave = 26 mean = 25 @ 6:13:00 PM O2 Content Phase:Rest PA : O2 Content O2: 49.8 @ 5:48:00 PM Saturations Phase:Rest AO : 100 @ 6:34:00 PM RA : 44 @ 6:20:00 PM RV : 43 @ 6:41:00 PM PA : 50 @ 5:48:00 PM Cardiac Output Phase:Rest Paul : 2 @ 6:00:50 PM Paul Cardiac Index: 1 @ 6:00:50 PM Flow Phase:Rest Qp : 2 @ 6:00:50 PM Qs : 2 @ 6:00:50 PM Valves Phase:DefaultPhase AV : 0.0 @ 6:00:50 PM 0.0 @ 6:00:50 PM AV Mean Gradient: 0.0 @ 6:00:50 PM 0.0 @ 6:00:50 PM AV Flow: 590 @ 6:00:50 PM Clinical Evaluation EBL: 5mL-10mL Procedural Details Admit Source: In Patient. Current Diagnosis : NSTEMI. Pre-Procedure Time Out. Identified patient by full name and date of as verbalized by the patient/guarantor. Does the consent match the physician's order: Yes. Accurate & Complete Informed Consent: Yes. Inpatient/Outpatient History & Physical on Chart: Yes. If H&P is completed, is and addenduem needed: No; If yes, is the addendum complete: N/A. Visualize and Verify Site with Patient/Guarantor: N/A. Relevant Radiology Images available: N/A. Pre-op teaching completed and patient verbalized understanding. The risks, benefits, and alternatives of sedation and/or procedure were discussed by physician. The patient agrees to continue. Procedure started. [facility] Clinical Fraility Score: 4: Vulnerable. 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 Chest Pain Symptom Assessment: Atypical Angina. Cardiovascular Instability: No, stable. Correct patient, site and procedure confirmed by cath team. Current diagnosis: NSTEMI. PERRLA. Strong, equal hand flyer builder bilaterally. Lungs clear x 5 lobes. Heparin gtt turned off prior to arrival in [facility]. Confirmed with RN on floor. Heparin off at 1200 today. IV Site on Arrival: 20 gauge in the left wrist. IV Fluids: 0.9% NaCl at KVO. 900 mL infused prior to labour market economist. Pre Procedural Pulses: bilateral dorsalis pedis was 2+. Pre Procedural Pulses: bilateral posterior tibial was 2+. Pre Procedural Pulses: bilateral radial was 2+. Oxygen started at 0liters/min via nasal canula; OFF FOR RHC. bilateral groins was prepped with chloroprep then draped in the usual sterile fashion. Physician notified. Baseline sample Acquired. HR: 93 BPM. Baseline sample Acquired. HR: 114 BPM. Family in Waiting room. updated prior to arrival. Equipment: 5F - Femoral. Cardiac Cath Pack. ACIST Manifold Kit Model BT 2000. Inventory is JJ 5F 11cm Hailee Plus Sheath. Heparinized Saline (2 units/mL), 1000 mL bag. Kit, Micropuncture. Equipment: 6F - Femoral. Physician arrived. Physician scrubbed in. Immediate Pre-Procedure Time Out. Correct Patient: Yes; Correct Procedure: Yes; Correct Site: Yes; Correct Patient Position: Yes; Correct Supplies: Yes; Dried Flammable Prep: Yes; Blood Products Available: N/A;. Lidocaine 1% infiltrated to the right groin. Venous access obtained with a micropuncture set. Arterial access obtained with micropuncture set. [place] MON catheter inserted. Jacek Valentin RN, MANAGER SCHOOL was relieved by Mandy Tabares as monitoring person. Oximetry samples were obtained. Normal venous range: 60-85%. Normal arterial range: 95-100%. Pressure measurements obtained. ABG drawn and sent with respiratory therapy. Oxygen started at 2liters/min via nasal canula. [place] out. A 5 south korean JR4 catheter in over wire. Multiple views taken of right coronary artery. Catheter out. A 5 south korean JL4 catheter in over wire. Multiple views taken of left coronary artery. Dr Almazan called for consult. Catheter out. A 5 south korean Angled Pig catheter in over wire. Physician arrived. Physician review of cine films. EDP Sample taken: LV 140/-11,18; HR: 95 BPM; SpO2: 99%. LV gram performed in LYN @ 10 mL/second for a total of 30 mL. EDP Sample taken: LV 121/-16,11; HR: 90 BPM; SpO2: 100%. Pullback taken: LV 123/-16,11; AO 126/64(94); Mean: 0mmHg, Peak to Peak: 0mmHg, SEP: 3sec/min; HR: 92 BPM; SpO2: 100%. Catheter out. Wire out. PERRLA. Strong, equal hand flyer builder bilaterally. No VTE prophylaxis required. Medication's Wasted: Lidocaine 1% = 1 mL. Medication's Wasted: Heparin = 4500 units. Sheath upsized to a 6 Fr. Medication's Wasted: Other = Fentanyl 100 mcg. Total IV fluids: 75 mL. A Suture was successful obtaining hemostatsis at the Right Femoral vein insertion site. A Suture was successful obtaining hemostatsis at the Right Femoral artery insertion site. Post-op diagnosis: severe 2 vessel CAD, cardiomyopathy, pulmanary hypertension. Complications: none. Estimated blood loss: 5mL-10mL. Responsiveness - Normal response to verbal stimuli; alert and oriented, PERRLA. Airway - Unaffected, no intervention required; spontaneous ventilation. Circulation: W/N/L, pulses unchanged. Nausea/Vomiting: No. Procedure completed. Patient transferred by bed to 1st floor. Vital chart was stopped. Access Site Site: Right Femoral vein Sheath Size: 6 Fr Hemostasis Method: Suture Hemostasis Success: Successful Site: Right Femoral artery Sheath Size: 5 Fr Hemostasis Method: Suture Hemostasis Success: Successful Procedure Medications Start: 4:55 PM Stop: 4:55 PM Medication: Versed Amount: 1 mg Route: I.V. Start: 5:18 PM Stop: 5:18 PM Medication: Heparin Amount: 1500 units Route: I.V. I, the attending physician, have reviewed and verified all procedure medications. Yes, all medications given per verbal order History/Risk Factors Hypertension: Yes Dyslipidemia: Yes Peripheral Arterial Disease (PAD): No Myocardial Infarction (MS): No Obesity: No Renal Disease: No Tobacco Use: Never Prior Interventions PCI: No CABG: No Valve Surgery: No Report Signatures Finalized by Dr Isabel Hardwick MD [facility] on 01/29/2023 06:25 PM
[2023-01-28 17:22] LABS: Alveolar-Arterial Oxygen Gradi 7.5 mmHg (5-10); Arterial Blood Gas Hematocrit 31.6 % (37-47); Blood Gas Allen Test Pos; Blood Gas Operator Identificat MONRO; Blood Gas Sample Site Not specified; Carboxyhemoglobin 0.8 %THgb (0.4-20.1); HGB O2 Sat > 100.0 % (95-100); Methemoglobin < 0.0 % (0.4-1.5); Oxygen Device ROOM AIR; Total Hemoglobin 10.3 g/dL (12-16)
[2023-01-28 17:23] LABS: Arterial Blood Gas Hematocrit 32.1 % (37-47); Blood Gas Allen Test Pos; Carboxyhemoglobin 1.4 %THgb (0.4-20.1); HGB O2 Sat 48.8 % (95-100); Methemoglobin 0.6 % (0.4-1.5); Total Hemoglobin 10.5 g/dL (12-16)
[2023-01-28 17:25] LABS: Alveolar-Arterial Oxygen Gradi 10.6 mmHg (5-10); Arterial Blood Gas Hematocrit 29.1 % (37-47); Blood Gas Allen Test Pos; Blood Gas Operator Identificat MONRO; Blood Gas Sample Site Not specified; Blood Gas Sample Type Arterial; Carboxyhemoglobin 1.4 %THgb (0.4-20.1); HGB O2 Sat 42.7 % (95-100); Methemoglobin 0.4 % (0.4-1.5); Oxygen Device ROOM AIR; Total Hemoglobin 9.5 g/dL (12-16)
[2023-01-28 17:26] LABS: Blood Gas Operator Identificat MONRO; Blood Gas Sample Site Not specified; Oxygen Device ROOM AIR
[2023-01-28 17:31] LABS: Blood Gas Sample Type Not specified
[2023-01-28 17:31] LABS: Arterial Blood Gas Hematocrit 46.1 % (37-47); Blood Gas Allen Test Pos; Blood Gas Operator Identificat MONRO; Blood Gas Sample Site Not specified; Blood Gas Sample Type Not specified; Carboxyhemoglobin 1.2 %THgb (0.4-20.1); HGB O2 Sat 42.4 % (95-100); Methemoglobin 0.3 % (0.4-1.5); Oxygen Device ROOM AIR
[2023-01-28 17:31] LABS: Blood Gas Sample Type Not specified
[2023-01-28 18:40] LABS: Partial Thromboplastin Time 43.8 SECONDS (23.9-36.7)
--- NOTE | 2023-01-28 19:26 | P.PN_ITS ---
Subjective Subjective: -Underwent coronary angiogram today-found to have aneurysmal dilation of left main with moderate calcium at the ostium, overall she has a very complex coronary lesions and arteries are heavily calcified-which are not amenable for stenting and patient is a poor surgical candidate for CABG. Cardiology recommended medical management. -Right heart catheterization showed elevated PA pressures 65/32 with mean 44- severe pulmonary hypertension with PCWP 25-suggesting secondary to group 2 cardiac causes -Saturating 93% on room air -Labs and imaging reviewed Medications: Reviewed: Yes Medication Review Details: Current Medications Acetaminophen (Acetaminophen 325 Mg Tablet) 650 mg PO Q6H PRN PRN Reason: Mild/Mod Pain Or Temp >/= 101 Last Admin: 01/27/23 10:18 Dose: 650 mg Hydrocodone Bitart/Acetaminophen (Hydrocodone-Acetaminophen 5-325 Mg Tablet) 1 tab PO Q4H PRN PRN Reason: MODERATE PAIN Last Admin: 01/29/23 02:02 Dose: 1 tab Al Hydrox/Mg Hydrox/Simethicone (Mjop-Dkv-Oyldvyyfb-Osmany 30 Ml Udc) 30 ml PO Q15M PRN PRN Reason: INDIGESTION Albuterol Sulfate (Albuterol 2.5 Mg/3 Ml Neb) 2.5 mg INHALATION Q4H.RESPIRATORY PRN PRN Reason: SHORTNESS OF BREATH Last Admin: 01/24/23 10:42 Dose: 2.5 mg Albuterol/Ipratropium (Ipratropium-Albuterol 3 Ml Neb) 3 ml INHALATION Q6H.RESP BENITA Last Admin: 01/29/23 08:58 Dose: 3 ml Alprazolam (Alprazolam 0.5 Mg Tablet) 0.25 mg PO TID PRN PRN Reason: ANXIETY Last Admin: 01/28/23 22:11 Dose: 0.25 mg Aspirin (Aspirin 81 Mg Chew Tablet) 81 mg PO DAILY ONE Stop: 01/30/23 09:01 Atorvastatin Calcium (Atorvastatin 40 Mg Tablet) 40 mg PO BEDTIME PENDING SALE TO [facility] Last Admin: 01/28/23 22:25 Dose: 40 mg Atropine Sulfate (Atropine 1 Mg/Ml Sdv 1 Ml) 0.5 mg IVP PRN PRN PRN Reason: Symptomatic bradycardia Cetirizine HCl (Cetirizine 10 Mg Tablet) 10 mg PO BEDTIME PENDING SALE TO [facility] Last Admin: 01/28/23 22:24 Dose: 10 mg Clopidogrel Bisulfate (Clopidogrel 75 Mg Tablet) 75 mg PO DAILY PENDING SALE TO [facility] Docusate Sodium (Docusate Sodium 100 Mg Capsule) 100 mg PO BID PENDING SALE TO [facility] Last Admin: 01/29/23 08:44 Dose: 100 mg Furosemide (Furosemide 10 Mg/Ml Sdv 4ml) 40 mg IVP Q12H PENDING SALE TO [facility] Last Admin: 01/27/23 09:39 Dose: Not Given Furosemide (Furosemide 20 Mg Tablet) 20 mg PO DAILY@0800 PENDING SALE TO [facility] Potassium Chloride/Sodium Chloride (Sodium Chlor 0.9% + Kcl 20 Meq) 20 meq in 1,000 mls @ 0 mls/hr IV .Q10H PENDING SALE TO [facility] Last Admin: 01/27/23 08:39 Dose: 100 mls/hr Lidocaine (Lidocaine 5% Patch) 1 patch TOPICAL [id number] PENDING SALE TO [facility] Last Admin: 01/29/23 08:43 Dose: 1 patch Losartan Potassium (Losartan 50 Mg Tablet) 25 mg PO DAILY PENDING SALE TO [facility] Magnesium Hydroxide (Magnesium Hydroxide 30 Ml Udc) 30 ml PO Q4H PRN PRN Reason: Constipation/indigestion Methylprednisolone Sodium Succinate (Methylprednisolone Sod Succ 125 Mg/2 Ml Inj) 40 mg IVP Q12H PENDING SALE TO [facility] Last Admin: 01/28/23 22:23 Dose: 40 mg Metoprolol Tartrate (Metoprolol Tartrate 25 Mg Tablet) 25 mg PO BID@0900,2100 PENDING SALE TO [facility] Last Admin: 01/29/23 08:44 Dose: 25 mg Montelukast Sodium (Montelukast Sodium 10 Mg Tablet) 10 mg PO DAILY PRN PRN Reason: Allergy Symptoms Last Admin: 01/29/23 08:44 Dose: 10 mg Morphine Sulfate (Morphine 4 Mg/Ml Sdv 1 Ml) 2 mg IVP Q4H PRN PRN Reason: SEVERE PAIN Last Admin: 01/25/23 00:53 Dose: 2 mg Nitroglycerin (Nitroglycerin 0.4 Mg Sublingual Tablet) 0.4 mg SUBLINGUAL Q5M PRN PRN Reason: CHEST PAIN Ondansetron HCl (Ondansetron 4 Mg Tablet) 4 mg PO Q8H PRN PRN Reason: NAUSEA Ondansetron HCl (Ondansetron 2 Mg/Ml Sdv 2 Ml) 4 mg IVP Q6H PRN PRN Reason: NAUSEA AND VOMITING Potassium Chloride (Potassium Chloride Er 20 Meq Tablet) 20 meq PO DAILY PENDING SALE TO [facility] Last Admin: 01/29/23 08:44 Dose: 20 meq Potassium Chloride (Potassium Chloride Oral Liq 20 Meq/15 Ml Udc) 20 meq PO ONCE PENDING SALE TO [facility] Last Admin: 01/28/23 09:37 Dose: 20 meq Senna (Sennosides 8.6 Mg Tablet) 17.2 mg PO BEDTIME PENDING SALE TO [facility] Last Admin: 01/28/23 22:10 Dose: Not Given Spironolactone (Spironolactone 25 Mg Tablet) 25 mg PO DAILY PENDING SALE TO [facility] Tramadol HCl (Tramadol 50 Mg Tablet) 50 mg PO Q4H PRN PRN Reason: MODERATE PAIN Vitals/I&O/Wt Last Vital Signs Temp 98.6 F 01/28/23 04:00 Pulse 94 01/28/23 18:45 Resp 28 H 01/28/23 18:45 BP 117/85 01/28/23 18:00 Pulse Ox 96 01/28/23 18:45 O2 Del Method Room Air 01/28/23 16:11 O2 Flow Rate 1 01/27/23 11:27 01/28/23 01/28/23 01/28/23 06:59 14:59 22:59 Intake Total 117.3 / 863.590 440 / 440 300 / 740 Output Total 860 / 1080 350 / 350 Balance -742.7 / -216.410 90 / 90 300 / 390 Physical Exam Narrative: General: alert, in mild to moderate respiratory distress HEENT: conj clear, EOMI, PERRL, mmm, Neck: supple, no meningismus Heme: no cervical LAP Respiratory: Inspection: No visible deformity of the chest wall Palpation: Trachea is mildly deviated to the right, bilateral symmetric expansion Percussion: Bilateral tympanic percussion note both anterior and posteriorly Auscultation: Bibasilar inspiratory coarse crackles Cardiovascular: rrr, nl s1s2, no mrg Abdomen: soft, nt, nd, no r/g, bs+ Extremities: pulses +, no edema, no c/c : no CVA tenderness Skin: intact, no rash MSK: no back or neck pain Neurologic: grossly intact Urinary Catheter Management: Roche: Cath Placed During This Visit: no Reason for Continuing Indwelling Catheter: Other Data 01/29/23 03:25 01/29/23 03:25 Other Labs: Radiology Impressions Lumbar Spine CT 01/22/23 12:00 IMPRESSION: 1. Acute compression fracture T12 superior endplate with loss of approximately 25% vertebral body height. Minimal retropulsion with slight effacement of ventral thecal sac and mild central canal stenosis. 2. Moderate central canal stenosis L3-L4 due to grade 1 anterolisthesis in combination with facet arthropathy ligamentum flavum hypertrophy. 3. Mild central canal stenosis L4-L5. Notified Rodo Alexander DO at 01/22/2023 1:19 PM. Chest X-Ray 01/22/23 13:25 IMPRESSION: 1. Consolidating infiltrates in the right lower lobe suspicious for pneumonia. 2. Superimposed chronic changes and widespread changes of honeycombing and emphysema noted. Cervical Spine CT 01/22/23 13:26 IMPRESSION: No evidence of acute fracture or dislocation. Head CT 01/22/23 13:26 IMPRESSION: 1. No evidence of intracranial hemorrhage or mass effect. 2. Moderate small vessel changes moderate parenchymal volume loss. 3. Vascular calcification. 4. No acute intracranial findings. Thoracic Spine MRI 01/22/23 17:27 IMPRESSION: Acute compression fracture of T12 vertebral body. No spinal canal compromise. Additional details as above. Chest CTA 01/24/23 15:04 IMPRESSION: 1. No evidence of pulmonary embolus. 2. Chronic emphysematous changes with interstitial fibrosis similar to the prior examinations. 3. Small bilateral pleural effusions with fluid and airspace infiltrates in the RIGHT lower lobe and RIGHT middle lobe. Correlation for pneumonia versus cardiogenic pulmonary edema 4. Reflux into the hepatic veins can be seen with RIGHT heart dysfunction. 5. Prior cholecystectomy. 6. Aberrant RIGHT subclavian artery. Laboratory Results WBC 14.2 10^3/uL (4.0-10.0) H 01/29/23 03:25 RBC 3.66 10^6/uL (4.1-5.3) L 01/29/23 03:25 Hgb 10.9 g/dL (11.5-15.3) L 01/29/23 03:25 Hct 34.2 % (37.0-47.0) L 01/29/23 03:25 MCV 93.4 fl (81-99) 01/29/23 03:25 MCH 29.8 pg (28.0-34.0) 01/29/23 03:25 MCHC 31.9 g/dL (30.0-36.0) 01/29/23 03:25 RDW 13.7 % (12.1-15.1) 01/29/23 03:25 Plt Count 352 10^3/cmm (130-400) 01/29/23 03:25 MPV 10.0 fL (7.4-10.4) 01/29/23 03:25 Neut % (Auto) 87.4 % 01/29/23 03:25 Lymph % (Auto) 8.3 % 01/29/23 03:25 Rice % (Auto) 3.4 % 01/29/23 03:25 Eos % (Auto) 0.0 % 01/29/23 03:25 Baso % (Auto) 0.1 % 01/29/23 03:25 Neut # (Auto) 12.46 10^3/uL (1.8-7.7) H 01/29/23 03:25 Lymph # (Auto) 1.2 10^3/uL (0.8-4.8) 01/29/23 03:25 Rice # (Auto) 0.5 10^3/uL (0.2-0.9) 01/29/23 03:25 Eos # (Auto) 0.0 10^3/uL (0.0-0.8) 01/29/23 03:25 Baso # (Auto) 0.0 10^3/uL (0.0-0.1) 01/29/23 03:25 Nucleated RBC % (auto) 0 % 01/29/23 03:25 Nucleated RBCs # 0.0 /100WBC 01/29/23 03:25 APTT 43.8 SECONDS (23.9-36.7) H 01/28/23 18:21 Specimen Type Arterial 01/29/23 16:32 Sample Site Radial, right 01/29/23 16:32 ABG pH 7.43 (7.35-7.45) 01/24/23 16:08 ABG pCO2 31.1 mmHg (35-45) L 01/24/23 16:08 ABG pO2 45.2 mmHg (80.0-100.0) L 01/24/23 16:08 ABG HCO3 20.4 mmol/L (22-26) L 01/24/23 16:08 ABG O2 Saturation 85.2 01/24/23 16:08 ABG Base Excess -3.2 mmol/L (-2.0-2.0) L 01/24/23 16:08 Alejo Test Pos 01/29/23 16:32 A-a O2 Gradient 6.5 mmHg (5-10) 01/29/23 16:32 Hematocrit 34.8 % (37-47) L 01/29/23 16:32 Hgb O2 Saturation 92.7 % (95-100) L 01/29/23 16:32 Carboxyhemoglobin 1.5 %THgb (0.4-20.1) 01/29/23 16:32 Methemoglobin 0.7 % (0.4-1.5) 01/29/23 16:32 Total Hemoglobin 11.4 g/dL (12-16) L 01/29/23 16:32 Sodium 132.0 mmol/L (131-143) 01/24/23 16:08 Potassium 3.8 mmol/L (3.5-5.0) 01/24/23 16:08 Glucose 131.0 mg/dL (70-115) H 01/24/23 16:08 Ionized Calcium 1.3 mmol/L (1.1-1.4) 01/24/23 16:08 O2 Delivery Device Room air 01/29/23 16:32 O2 Liters/Min 3.0 % 01/24/23 16:08 FiO2 21.0 % 01/28/23 17:17 Heavy Equipment Diesel Mechanic ID Eren 01/29/23 16:32 Sodium 136 mmol/L (136-145) 01/29/23 03:25 Potassium 4.4 mmol/L (3.5-5.1) 01/29/23 03:25 Chloride 102 mmol/L (98-107) 01/29/23 03:25 Carbon Dioxide 21 mmol/L (22-29) L 01/29/23 03:25 Anion Gap 17.4 (5-19) 01/29/23 03:25 BUN 30 mg/dL (8-23) H 01/29/23 03:25 Creatinine 0.9 mg/dL (0.5-0.9) 01/29/23 03:25 GFR Calculation Not Reportable 01/29/23 03:25 Glucose 114 mg/dL (65-115) 01/29/23 03:25 Calculated Osmolality 289 mOsm/kg (285-295) 01/29/23 03:25 Calcium 9.1 mg/dL (8.5-10.5) 01/29/23 03:25 Phosphorus 2.3 mg/dL (2.5-4.5) L 01/28/23 02:57 Magnesium 2.1 mg/dL (1.7-2.3) 01/28/23 02:57 Total Bilirubin 0.4 mg/dL (0.15-1.2) 01/29/23 03:25 AST 33 U/L (0-32) H 01/29/23 03:25 ALT 23 U/L (0-33) 01/29/23 03:25 Alkaline Phosphatase 65 U/L (35-105) 01/29/23 03:25 Troponin T Baseline 355 ng/L (0-10) H* 01/24/23 17:15 Troponin T 120 Minute 413.2 ng/L (0-10) H 01/24/23 19:25 Delta Troponin T 58.2 ABS# (0-10) H* 01/24/23 19:25 Troponin T Hi Sens 6Hr 405.3 ng/L (0-10) H 01/24/23 23:00 Troponin T Hi Sens 6Hr Delta 50.3 ng/L (0-12) H* 01/24/23 23:00 C-Reactive Protein 45.4 mg/L (0.0-4.9) H 01/22/23 12:27 NT-Pro-B Natriuret Pep 64021 pg/mL (0-450) H 01/24/23 17:15 Total Protein 6.8 g/dL (6.6-8.7) 01/29/23 03:25 Albumin 3.0 g/dL (3.5-5.2) L 01/29/23 03:25 Globulin 3.8 g/dL (1.3-4.6) 01/29/23 03:25 Procalcitonin 0.12 ng/mL (0-0.5) 01/22/23 12:27 Urine Color Yellow (Yellow) 01/22/23 13:09 Urine Appearance Clear (CLEAR) 01/22/23 13:09 Urine pH 6 (5-7) 01/22/23 13:09 Ur Specific Rachel 1.010 (1.005-1.030) 01/22/23 13:09 Urine Protein Neg (Negative) 01/22/23 13:09 Urine Glucose (UA) Norm (Normal) 01/22/23 13:09 Urine Ketones Negative (Negative) 01/22/23 13:09 Urine Blood Neg (Negative) 01/22/23 13:09 Urine Nitrate Negative (Negative) 01/22/23 13:09 Urine Bilirubin Neg (Negative) 01/22/23 13:09 Urine Urobilinogen Norm mg/dL (Negative) 01/22/23 13:09 Ur Leukocyte Esterase Negative (Negative) 01/22/23 13:09 A&P Assessment and plan (1) NSTEMI (non-ST elevated myocardial infarction): Patient complaining of chest heaviness, elevated troponins, EKG showing ST depression-consistent with NSTEMI She was started on IV heparin drip, Plavix, aspirin, statin, beta-ivanna and underwent coronary angiogram on 01/28/2023-which showed complex coronary lesions with aneurysmal dilation of the LAD, severe calcification, torturous vessels which makes it difficult for stenting. Patient is poor surgical candidate-hence cardiology recommended medical management Echocardiogram 01/25/2023 showed severe diffuse hypokinesia of mid and apical septum, anterior inferior, apical lateral and LV apex with LVEF 41%. Grade 1 diastolic dysfunction. Estimated PASP 63, mild pulmonary valve regurgitation. Moderate to severe TR. (2) Sepsis with acute hypoxic respiratory failure: Patient currently on room air-saturating > 93% CTA did not show any evidence of pulmonary embolism. Showed background chronic emphysema with interstitial fibrosis and small bilateral effusions with predominant fluid and airspace infiltrates in right lower lobe and middle lobe. Suspicious for pneumonia. She completed 7 days Rocephin and azithromycin for right lower lobe pneumonia Started on p.o. prednisone 40 mg twice daily for ILD exacerbation-we will gradually taper down over next month as outpatient (3) Right lower lobe pneumonia: Imaging suggestive of right lower lobe pneumonia Completed empiric treatment for Rocephin and azithromycin (4) Pulmonary emphysema with fibrosis of lung: Patient never had PFTs as outpatient According to daughter patient has smoked for over 20 years and quit in 1980s nebulization every 6 hours scheduled I am going to prescribe ICS/LABA/LAMA on discharge (5) Traumatic compression fracture of T12 thoracic vertebra: Patient underwent T12 kyphoplasty on 01/23/2023 Plan Patient is doing good from pulmonary standpoint-we will taper off p.o. prednisone over the next 1 month and I will follow-up in clinic Attestations Medical Necessity Statement*: Deferred to hospitalist Coding Level of Care Code 46376 Diagnoses NSTEMI (non-ST elevated myocardial infarction) I21.4 Sepsis with acute hypoxic respiratory failure A41.9; R65.20; J96.01 Right lower lobe pneumonia J18.9 Pulmonary emphysema with fibrosis of lung J43.9; J84.10 Traumatic compression fracture of T12 thoracic vertebra S22.080A Time Spent (min) 32
[2023-01-28] MEDS: ALPRAZolam 0.5 mg Tablet 0.25 MG PO (22:11)
--- NOTE | 2023-01-28 22:15 | PC.NURSE ---
Initiated sheath removal at 2120 removing arterial sheath first. Hemostasis achieved immediately. Sheath removed by Mandy JACK. She maintained pressure for 20min. Noted slight bleeding and continued to hold pressure for 10min more. Venous sheath removed by this RN at 2144. Relieved all pressure at 2254. Covered with with folded 4x4 and bio-occlusive dressing. While at bedside observed site to start bleeding. Hemostasis achieved by this RN at at 2200. Maintained pressure to site for additional 15min. Cleaned site. Watched for additional 5min. Covered site with folded 4x4s and bio-occlusive dressing. Site remains c,d,i without s/s of additional bleeding or hematoma formation observed. Will continue to monitor.
[2023-01-28] MEDS: cetirizine 10 mg Tablet PO (22:24)
[2023-01-28] MEDS: atorvastatin 40 mg Tablet PO (22:25)
[2023-01-29] VITALS (14 sets, daily range): BP systolic 112–139; BP diastolic 70–90; PULSE 80–102; RESP 16–24; TEMP 36.4–36.9; O2SAT 90–96
[2023-01-29] MEDS: HYDROcodone-acetaminophen 5-325 mg Tablet 1 TAB PO ×3 (02:02→16:27)
[2023-01-29] MEDS: ipratropium-albuterol 3 mL Neb INHALATION ×4 (02:34→20:48)
[2023-01-29 04:06] LABS: Basophils % 0.1 %; Hematocrit 34.2 % (37.0-47.0); Hemoglobin 10.9 g/dL (11.5-15.3); Lymphocytes # 1.2 10^3/uL (0.8-4.8); Lymphocytes % 8.3 %; Mean Corpuscular HGB Conc 31.9 g/dL (30.0-36.0); Mean Corpuscular Hemoglobin 29.8 pg (28.0-34.0); Mean Corpuscular Volume 93.4 fl (81-99); Monocytes # 0.5 10^3/uL (0.2-0.9); Monocytes % 3.4 %; Neutrophils # 12.46 10^3/uL (1.8-7.7); Neutrophils % 87.4 %; Nucleated Red Blood Cells % 0 %; Platelet Count 352 10^3/cmm (130-400); Red Blood Count 3.66 10^6/uL (4.1-5.3); Red Cell Distribution Width 13.7 % (12.1-15.1); White Blood Count 14.2 10^3/uL (4.0-10.0)
[2023-01-29 04:24] LABS: Alanine Aminotransferase 23 U/L (0-33); Alkaline Phosphatase 65 U/L (35-105); Anion Gap 17.4 (5-19); Aspartate Amino Transferase 33 U/L (0-32); Blood Urea Nitrogen 30 mg/dL (8-23); Calcium 9.1 mg/dL (8.5-10.5); Carbon Dioxide 21 mmol/L (22-29); Chloride 102 mmol/L (98-107); Globulin 3.8 g/dL (1.3-4.6); Glucose 114 mg/dL (65-115); Osmolality Calculated 289 mOsm/kg (285-295); Potassium 4.4 mmol/L (3.5-5.1); Sodium 136 mmol/L (136-145); Total Bilirubin 0.4 mg/dL (0.15-1.2); Total Protein 6.8 g/dL (6.6-8.7)
[2023-01-29] MEDS: lidocaine 5% Patch 1 PATCH TOPICAL (08:43)
[2023-01-29] MEDS: metoprolol tartrate 25 mg Tablet PO ×2 (08:44→21:06)
[2023-01-29] MEDS: montelukast sodium 10 mg Tablet PO (08:44)
[2023-01-29] MEDS: docusate sodium 100 mg Capsule PO ×2 (08:44→17:50)
[2023-01-29] MEDS: aspirin 325 mg Tablet PO (08:44)
[2023-01-29] MEDS: potassium chloride ER 20 mEq Tablet PO (08:44)
--- NOTE | 2023-01-29 10:17 | P.PN_ITS ---
Subjective Subjective: The patient is feeling okay. Had a cardiac catheterization yesterday. Was found to have severe two-vessel coronary disease with extensive coronary calcification and multiple high-grade complex lesions. Based on the angiographic findings, she was found to be a very poor candidate for any revasc ularization procedure. So it was decided to treat her medically. She was started on Ranexa yesterday. She has not had any chest pain or chest tightness since yesterday. Complains of feeling tired and weak. Medications: Medication Review Details: Current Medications Acetaminophen (Acetaminophen 325 Mg Tablet) 650 mg PO Q6H PRN PRN Reason: Mild/Mod Pain Or Temp >/= 101 Last Admin: 01/27/23 10:18 Dose: 650 mg Hydrocodone Bitart/Acetaminophen (Hydrocodone-Acetaminophen 5-325 Mg Tablet) 1 tab PO Q4H PRN PRN Reason: MODERATE PAIN Last Admin: 01/29/23 02:02 Dose: 1 tab Al Hydrox/Mg Hydrox/Simethicone (Dbqd-Cnf-Qaqmnwtai-Osmany 30 Ml Udc) 30 ml PO Q15M PRN PRN Reason: INDIGESTION Albuterol Sulfate (Albuterol 2.5 Mg/3 Ml Neb) 2.5 mg INHALATION Q4H.RESPIRATORY PRN PRN Reason: SHORTNESS OF BREATH Last Admin: 01/24/23 10:42 Dose: 2.5 mg Albuterol/Ipratropium (Ipratropium-Albuterol 3 Ml Neb) 3 ml INHALATION Q6H.RESP BENITA Last Admin: 01/29/23 08:58 Dose: 3 ml Alprazolam (Alprazolam 0.5 Mg Tablet) 0.25 mg PO TID PRN PRN Reason: ANXIETY Last Admin: 01/28/23 22:11 Dose: 0.25 mg Aspirin (Aspirin 81 Mg Chew Tablet) 81 mg PO DAILY ONE Stop: 01/30/23 09:01 Atorvastatin Calcium (Atorvastatin 40 Mg Tablet) 40 mg PO BEDTIME BENITA Last Admin: 01/28/23 22:25 Dose: 40 mg Atropine Sulfate (Atropine 1 Mg/Ml Sdv 1 Ml) 0.5 mg IVP PRN PRN PRN Reason: Symptomatic bradycardia Cetirizine HCl (Cetirizine 10 Mg Tablet) 10 mg PO BEDTIME [facility] Last Admin: 05/01/23 22:24 Dose: 10 mg Clopidogrel Bisulfate (Clopidogrel 75 Mg Tablet) 75 mg PO DAILY [facility] Docusate Sodium (Docusate Sodium 100 Mg Capsule) 100 mg PO BID [facility] Last Admin: 01/29/23 08:44 Dose: 100 mg Furosemide (Furosemide 10 Mg/Ml Sdv 4ml) 40 mg IVP Q12H [facility] Last Admin: 01/27/23 09:39 Dose: Not Given Furosemide (Furosemide 20 Mg Tablet) 20 mg PO DAILY@0800 [facility] Potassium Chloride/Sodium Chloride (Sodium Chlor 0.9% + Kcl 20 Meq) 20 meq in 1,000 mls @ 0 mls/hr IV .Q10H [facility] Last Admin: 01/27/23 08:39 Dose: 100 mls/hr Lidocaine (Lidocaine 5% Patch) 1 patch TOPICAL [id number] [facility] Last Admin: 01/29/23 08:43 Dose: 1 patch Losartan Potassium (Losartan 50 Mg Tablet) 25 mg PO DAILY [facility] Magnesium Hydroxide (Magnesium Hydroxide 30 Ml Udc) 30 ml PO Q4H PRN PRN Reason: Constipation/indigestion Methylprednisolone Sodium Succinate (Methylprednisolone Sod Succ 125 Mg/2 Ml Inj) 40 mg IVP Q12H [facility] Last Admin: 01/28/23 22:23 Dose: 40 mg Metoprolol Tartrate (Metoprolol Tartrate 25 Mg Tablet) 25 mg PO BID@0900,2100 [facility] Last Admin: 01/29/23 08:44 Dose: 25 mg Montelukast Sodium (Montelukast Sodium 10 Mg Tablet) 10 mg PO DAILY PRN PRN Reason: Allergy Symptoms Last Admin: 01/29/23 08:44 Dose: 10 mg Morphine Sulfate (Morphine 4 Mg/Ml Sdv 1 Ml) 2 mg IVP Q4H PRN PRN Reason: SEVERE PAIN Last Admin: 01/25/23 00:53 Dose: 2 mg Nitroglycerin (Nitroglycerin 0.4 Mg Sublingual Tablet) 0.4 mg SUBLINGUAL Q5M PRN PRN Reason: CHEST PAIN Ondansetron HCl (Ondansetron 4 Mg Tablet) 4 mg PO Q8H PRN PRN Reason: NAUSEA Ondansetron HCl (Ondansetron 2 Mg/Ml Sdv 2 Ml) 4 mg IVP Q6H PRN PRN Reason: NAUSEA AND VOMITING Potassium Chloride (Potassium Chloride Er 20 Meq Tablet) 20 meq PO DAILY [facility] Last Admin: 01/29/23 08:44 Dose: 20 meq Potassium Chloride (Potassium Chloride Oral Liq 20 Meq/15 Ml Udc) 20 meq PO ONCE [facility] Last Admin: 01/28/23 09:37 Dose: 20 meq Senna (Sennosides 8.6 Mg Tablet) 17.2 mg PO BEDTIME [facility] Last Admin: 01/28/23 22:10 Dose: Not Given Spironolactone (Spironolactone 25 Mg Tablet) 25 mg PO DAILY [facility] Tramadol HCl (Tramadol 50 Mg Tablet) 50 mg PO Q4H PRN PRN Reason: MODERATE PAIN Vitals/I&O/Wt Last Vital Signs Temp 97.7 F 01/29/23 04:00 Pulse 102 H 01/29/23 08:00 Resp 16 01/29/23 08:00 BP 139/90 01/29/23 07:39 Pulse Ox 94 01/29/23 08:00 O2 Del Method Room Air 01/29/23 08:00 O2 Flow Rate 1 01/27/23 11:27 01/28/23 01/29/23 01/29/23 22:59 06:59 14:59 Intake Total 540 / 980 120 / 1100 480 / 480 Output Total 200 / 550 Balance 540 / 630 -80 / 550 480 / 480 Physical Exam Narrative: GENERAL: The patient is alert and oriented times three. Not in any acute distress. HEENT: No significant pallor, icterus or lymphadenopathy.Oral cavity: There are no mucous membrane lesions. NECK: Trachea appears to be central. No masses noted. No JVD or thyromegaly appreciated. RESPIRATORY: Breath sounds are bilaterally with a scattered coarse crackles and expiratory wheezes. Intensity of breath sounds are diminished in the bases BREASTS: Deferred. HEART: The heart sounds are normal. No S3 or S4. Systolic murmur grade 3 or 6 in the left sternal border. No diastolic murmurs. No pericardial rub ABDOMEN: No vessel pulsations or distention. No tenderness. No organomegaly appreciated. Bowel sounds are normally heard. : Deferred. RECTAL: Deferred. LYMPHATIC: No lymphadenopathy noted in the neck. EXTREMITIES: No hematoma bleeding from the right groin. MUSCULOSKELETAL: No acute joint deformities or swelling SKIN: There are no significant rashes or ecchymosis NEUROPSYCHIATRIC: The patient is alert and oriented x3. Appears to be in a good mood. No tremors or rigidity noted. Urinary Catheter Management: Roche: Cath Placed During This Visit: no Reason for Continuing Indwelling Catheter: Other Data 01/29/23 03:25 01/29/23 03:25 Other Labs: Laboratory Last Values WBC 14.2 10^3/uL (4.0-10.0) H 01/29/23 03:25 RBC 3.66 10^6/uL (4.1-5.3) L 01/29/23 03:25 Hgb 10.9 g/dL (11.5-15.3) L 01/29/23 03:25 Hct 34.2 % (37.0-47.0) L 01/29/23 03:25 MCV 93.4 fl (81-99) 01/29/23 03:25 MCH 29.8 pg (28.0-34.0) 01/29/23 03:25 MCHC 31.9 g/dL (30.0-36.0) 01/29/23 03:25 RDW 13.7 % (12.1-15.1) 01/29/23 03:25 Plt Count 352 10^3/cmm (130-400) 01/29/23 03:25 MPV 10.0 fL (7.4-10.4) 01/29/23 03:25 Neut % (Auto) 87.4 % 01/29/23 03:25 Lymph % (Auto) 8.3 % 01/29/23 03:25 [place] % (Auto) 3.4 % 01/29/23 03:25 Eos % (Auto) 0.0 % 01/29/23 03:25 Baso % (Auto) 0.1 % 01/29/23 03:25 Neut # (Auto) 12.46 10^3/uL (1.8-7.7) H 01/29/23 03:25 Lymph # (Auto) 1.2 10^3/uL (0.8-4.8) 01/29/23 03:25 [place] # (Auto) 0.5 10^3/uL (0.2-0.9) 01/29/23 03:25 Eos # (Auto) 0.0 10^3/uL (0.0-0.8) 01/29/23 03:25 Baso # (Auto) 0.0 10^3/uL (0.0-0.1) 01/29/23 03:25 Nucleated RBC % (auto) 0 % 01/29/23 03:25 Nucleated RBCs # 0.0 /100WBC 01/29/23 03:25 APTT 43.8 SECONDS (23.9-36.7) H 01/28/23 18:21 Specimen Type Arterial 01/29/23 16:32 Sample Site Radial, right 01/29/23 16:32 ABG pH 7.43 (7.35-7.45) 01/24/23 16:08 ABG pCO2 31.1 mmHg (35-45) L 01/24/23 16:08 ABG pO2 45.2 mmHg (80.0-100.0) L 01/24/23 16:08 ABG HCO3 20.4 mmol/L (22-26) L 01/24/23 16:08 ABG O2 Saturation 85.2 01/24/23 16:08 ABG Base Excess -3.2 mmol/L (-2.0-2.0) L 01/24/23 16:08 Alejo Test Pos 01/29/23 16:32 A-a O2 Gradient 6.5 mmHg (5-10) 01/29/23 16:32 Hematocrit 34.8 % (37-47) L 01/29/23 16:32 Hgb O2 Saturation 92.7 % (95-100) L 01/29/23 16:32 Carboxyhemoglobin 1.5 %THgb (0.4-20.1) 01/29/23 16:32 Methemoglobin 0.7 % (0.4-1.5) 01/29/23 16:32 Total Hemoglobin 11.4 g/dL (12-16) L 01/29/23 16:32 Sodium 132.0 mmol/L (131-143) 01/24/23 16:08 Potassium 3.8 mmol/L (3.5-5.0) 01/24/23 16:08 Glucose 131.0 mg/dL (70-115) H 01/24/23 16:08 Ionized Calcium 1.3 mmol/L (1.1-1.4) 01/24/23 16:08 O2 Delivery Device Room air 01/29/23 16:32 O2 Liters/Min 3.0 % 04/27/23 16:08 FiO2 21.0 % 01/28/23 17:17 Clinical Support Nurse ID Eren 01/29/23 16:32 Sodium 136 mmol/L (136-145) 01/29/23 03:25 Potassium 4.4 mmol/L (3.5-5.1) 01/29/23 03:25 Chloride 102 mmol/L (98-107) 01/29/23 03:25 Carbon Dioxide 21 mmol/L (22-29) L 01/29/23 03:25 Anion Gap 17.4 (5-19) 01/29/23 03:25 BUN 30 mg/dL (8-23) H 01/29/23 03:25 Creatinine 0.9 mg/dL (0.5-0.9) 01/29/23 03:25 GFR Calculation Not Reportable 01/29/23 03:25 Glucose 114 mg/dL (65-115) 01/29/23 03:25 Calculated Osmolality 289 mOsm/kg (285-295) 01/29/23 03:25 Calcium 9.1 mg/dL (8.5-10.5) 01/29/23 03:25 Phosphorus 2.3 mg/dL (2.5-4.5) L 01/28/23 02:57 Magnesium 2.1 mg/dL (1.7-2.3) 01/28/23 02:57 Total Bilirubin 0.4 mg/dL (0.15-1.2) 01/29/23 03:25 AST 33 U/L (0-32) H 01/29/23 03:25 ALT 23 U/L (0-33) 01/29/23 03:25 Alkaline Phosphatase 65 U/L (35-105) 01/29/23 03:25 Troponin T Baseline 355 ng/L (0-10) H* 01/24/23 17:15 Troponin T 120 Minute 413.2 ng/L (0-10) H 01/24/23 19:25 Delta Troponin T 58.2 ABS# (0-10) H* 01/24/23 19:25 Troponin T Hi Sens 6Hr 405.3 ng/L (0-10) H 01/24/23 23:00 Troponin T Hi Sens 6Hr Delta 50.3 ng/L (0-12) H* 01/24/23 23:00 C-Reactive Protein 45.4 mg/L (0.0-4.9) H 01/22/23 12:27 NT-Pro-B Natriuret Pep 16789 pg/mL (0-450) H 01/24/23 17:15 Total Protein 6.8 g/dL (6.6-8.7) 01/29/23 03:25 Albumin 3.0 g/dL (3.5-5.2) L 01/29/23 03:25 Globulin 3.8 g/dL (1.3-4.6) 01/29/23 03:25 Procalcitonin 0.12 ng/mL (0-0.5) 01/22/23 12:27 Urine Color Yellow (Yellow) 01/22/23 13:09 Urine Appearance Clear (CLEAR) 01/22/23 13:09 Urine pH 6 (5-7) 01/22/23 13:09 Ur Specific [place] 1.010 (1.005-1.030) 01/22/23 13:09 Urine Protein Neg (Negative) 01/22/23 13:09 Urine Glucose (UA) Norm (Normal) 01/22/23 13:09 Urine Ketones Negative (Negative) 01/22/23 13:09 Urine Blood Neg (Negative) 01/22/23 13:09 Urine Nitrate Negative (Negative) 01/22/23 13:09 Urine Bilirubin Neg (Negative) 01/22/23 13:09 Urine Urobilinogen Norm mg/dL (Negative) 01/22/23 13:09 Ur Leukocyte Esterase Negative (Negative) 01/22/23 13:09 A&P Assessment and plan (1) NSTEMI (non-ST elevated myocardial infarction): Pain may be From the Plavix and baby aspirin. Other current medication may be continued. She currently has no chest pain. (2) Ischemic cardiomyopathy: Patient may have treated currently with diuretics and afterload reducing agents. On Lasix 20 mg p.o. daily and spironolactone 25 mg p.o. daily (3) Traumatic compression fracture of T12 thoracic vertebra: Management as per Dr. Walsh. Currently seems to be doing okay with no significant symptoms. (4) Pulmonary emphysema with fibrosis of lung: Management as per the pulmonary service. (5) Sepsis with acute hypoxic respiratory failure: Patient clinically seems to have improved. Currently he is afebrile. May continue on the current management. (6) Severe tricuspid regurgitation: Patient was found to have moderately severe tricuspid regurgitation. The pulmonary artery peak systolic pressure was around 63 mmHg. Plan Other problems are Elevated white cell count-pneumonia/steroid-seems improving Mild hypokalemia, currently normokalemic Elevated BUN, improving Mild anemia, seems stable Emphysema/interstitial lung disease Pulmonary hypertension Attestations Medical Necessity Statement*: Disposition as per the primary Coding Level of Care Code 94292 Diagnoses NSTEMI (non-ST elevated myocardial infarction) I21.4 Ischemic cardiomyopathy I25.5 Traumatic compression fracture of T12 thoracic vertebra S22.080A Pulmonary emphysema with fibrosis of lung J43.9; J84.10 Sepsis with acute hypoxic respiratory failure A41.9; R65.20; J96.01 Severe tricuspid regurgitation I07.1
--- NOTE | 2023-01-29 10:58 | PC.SOCIAL ---
IMM update IMM updated with patient. Verbalized an understanding. Copy Pg 2 provided. Initialled, dated, timed, and placed in chart.
[2023-01-29] MEDS: losartan 50 mg Tablet 25 MG PO (11:58)
[2023-01-29] MEDS: clopidogrel 75 mg Tablet PO (12:01)
--- NOTE | 2023-01-29 15:54 | PM.PN ---
Subjective Subjective: Patient underwent cardiac catheterization yesterday which showed occlusions in the LAD and LCx and tortuous vasculature which was not amenable to placement of any stents. Today she is chest pain-free. Her breathing is stable. Saturating 96% on room air. Medications: Reviewed: Yes Medication Review Details: Current Medications Acetaminophen (Acetaminophen 325 Mg Tablet) 650 mg PO Q6H PRN PRN Reason: Mild/Mod Pain Or Temp >/= 101 Last Admin: 01/27/23 10:18 Dose: 650 mg Hydrocodone Bitart/Acetaminophen (Hydrocodone-Acetaminophen 5-325 Mg Tablet) 1 tab PO Q4H PRN PRN Reason: MODERATE PAIN Last Admin: 01/29/23 02:02 Dose: 1 tab Al Hydrox/Mg Hydrox/Simethicone (Rqrr-Wjn-Hdtlsshfz-Osmany 30 Ml Udc) 30 ml PO Q15M PRN PRN Reason: INDIGESTION Albuterol Sulfate (Albuterol 2.5 Mg/3 Ml Neb) 2.5 mg INHALATION Q4H.RESPIRATORY PRN PRN Reason: SHORTNESS OF BREATH Last Admin: 01/24/23 10:42 Dose: 2.5 mg Albuterol/Ipratropium (Ipratropium-Albuterol 3 Ml Neb) 3 ml INHALATION Q6H.RESP BENITA Last Admin: 01/29/23 08:58 Dose: 3 ml Alprazolam (Alprazolam 0.5 Mg Tablet) 0.25 mg PO TID PRN PRN Reason: ANXIETY Last Admin: 01/28/23 22:11 Dose: 0.25 mg Aspirin (Aspirin 81 Mg Chew Tablet) 81 mg PO DAILY ONE Stop: 01/30/23 09:01 Atorvastatin Calcium (Atorvastatin 40 Mg Tablet) 40 mg PO BEDTIME [facility] Last Admin: 01/28/23 22:25 Dose: 40 mg Atropine Sulfate (Atropine 1 Mg/Ml Sdv 1 Ml) 0.5 mg IVP PRN PRN PRN Reason: Symptomatic bradycardia Cetirizine HCl (Cetirizine 10 Mg Tablet) 10 mg PO BEDTIME [facility] Last Admin: 01/28/23 22:24 Dose: 10 mg Clopidogrel Bisulfate (Clopidogrel 75 Mg Tablet) 75 mg PO DAILY [facility] Docusate Sodium (Docusate Sodium 100 Mg Capsule) 100 mg PO BID [facility] Last Admin: 01/29/23 08:44 Dose: 100 mg Furosemide (Furosemide 10 Mg/Ml Sdv 4ml) 40 mg IVP Q12H [facility] Last Admin: 01/27/23 09:39 Dose: Not Given Furosemide (Furosemide 20 Mg Tablet) 20 mg PO DAILY@0800 [facility] Potassium Chloride/Sodium Chloride (Sodium Chlor 0.9% + Kcl 20 Meq) 20 meq in 1,000 mls @ 0 mls/hr IV .Q10H [facility] Last Admin: 01/27/23 08:39 Dose: 100 mls/hr Lidocaine (Lidocaine 5% Patch) 1 patch TOPICAL [id number] [facility] Last Admin: 01/29/23 08:43 Dose: 1 patch Losartan Potassium (Losartan 50 Mg Tablet) 25 mg PO DAILY [facility] Magnesium Hydroxide (Magnesium Hydroxide 30 Ml Udc) 30 ml PO Q4H PRN PRN Reason: Constipation/indigestion Methylprednisolone Sodium Succinate (Methylprednisolone Sod Succ 125 Mg/2 Ml Inj) 40 mg IVP Q12H [facility] Last Admin: 01/28/23 22:23 Dose: 40 mg Metoprolol Tartrate (Metoprolol Tartrate 25 Mg Tablet) 25 mg PO BID@0900,2100 [facility] Last Admin: 01/29/23 08:44 Dose: 25 mg Montelukast Sodium (Montelukast Sodium 10 Mg Tablet) 10 mg PO DAILY PRN PRN Reason: Allergy Symptoms Last Admin: 01/29/23 08:44 Dose: 10 mg Morphine Sulfate (Morphine 4 Mg/Ml Sdv 1 Ml) 2 mg IVP Q4H PRN PRN Reason: SEVERE PAIN Last Admin: 01/25/23 00:53 Dose: 2 mg Nitroglycerin (Nitroglycerin 0.4 Mg Sublingual Tablet) 0.4 mg SUBLINGUAL Q5M PRN PRN Reason: CHEST PAIN Ondansetron HCl (Ondansetron 4 Mg Tablet) 4 mg PO Q8H PRN PRN Reason: NAUSEA Ondansetron HCl (Ondansetron 2 Mg/Ml Sdv 2 Ml) 4 mg IVP Q6H PRN PRN Reason: NAUSEA AND VOMITING Potassium Chloride (Potassium Chloride Er 20 Meq Tablet) 20 meq PO DAILY [facility] Last Admin: 01/29/23 08:44 Dose: 20 meq Potassium Chloride (Potassium Chloride Oral Liq 20 Meq/15 Ml Udc) 20 meq PO ONCE [facility] Last Admin: 01/28/23 09:37 Dose: 20 meq Senna (Sennosides 8.6 Mg Tablet) 17.2 mg PO BEDTIME [facility] Last Admin: 01/28/23 22:10 Dose: Not Given Spironolactone (Spironolactone 25 Mg Tablet) 25 mg PO DAILY [facility] Tramadol HCl (Tramadol 50 Mg Tablet) 50 mg PO Q4H PRN PRN Reason: MODERATE PAIN Vitals/I&O/Wt Last Vital Signs Temp 97.7 F 01/29/23 04:00 Pulse 102 H 01/29/23 14:00 Resp 16 01/29/23 14:00 BP 118/77 01/29/23 12:00 Pulse Ox 96 01/29/23 14:00 O2 Del Method Room Air 01/29/23 14:00 O2 Flow Rate 1 01/27/23 11:27 01/29/23 01/29/23 01/29/23 06:59 14:59 22:59 Intake Total 120 / 1100 720 / 720 Output Total 200 / 550 Balance -80 / 550 720 / 720 Physical Exam Narrative: General: No acute distress, AO x3 HEENT: PERRLA, pupils bilaterally equal and reactive, pallors not present Chest: Normal vesicular breath sounds, no added sounds, equal good air entry bilaterally CVS: S1-S2 regular, no murmurs, no tachycardia, no gallops, no rubs Abdomen: Soft, nontender, no organomegaly, bowel sounds present Neuro: No focal deficits, no facial deformity, AO x3, power 5/5 in all limbs Urinary Catheter Management: Roche: Cath Placed During This Visit: no Reason for Continuing Indwelling Catheter: Other Data 01/29/23 03:25 01/29/23 03:25 A&P Assessment and plan (1) Right lower lobe pneumonia: Completed an empiric course of ceftriaxone and azithromycin Continue steroids for suspected ILD, however will change methylprednisolone 40 mg IV every 12 hours to prednisone 40 mg p.o. daily in anticipation of discharge. Thereafter will discharge on a prednisone taper, 40 mg p.o. daily for the next week, then taper down by 10 mg every week until she is on a maintenance dose of 5 mg p.o. daily. Continue breathing treatments Supplemental oxygen as needed, currently doing well on room air. Encourage pulmonary toilet (2) NSTEMI (non-ST elevated myocardial infarction): Continue high intensity statin Continue metoprolol Continue heparin drip. held today for the procedure at 12 TTE reviewed, Severe diffuse hypokinesia of the mid and apical septum, ?anteroseptum, inferior, apical lateral and LV apex.? The LV ?ejection fraction is 41%.Grade I/IV diastolic dysfunction Telemetry Cardiology consulted, status postcardiac cath yesterday showing multivessel occlusion, and tortuous vasculature, not amenable to stenting. Plan to continue on medical management only. Continue losartan, metoprolol We will likely add Aldactone at discharge. (3) T12 vertebral fracture: Acute T12 fracture secondary to mechanical fall Status post kyphoplasty on 01/23 (4) Fall: Fall precautions (5) Hyponatremia: Continue to monitor (6) Leukocytosis: Either 2/2 PNA versus stress induced CAP w/u as above Trend (7) Allergic rhinitis: Continue Zyrtec Continue Montelukast Plan DVT ppx: Heparin Drip Code Status: DNR Attestations Medical Necessity Statement*: Transition IV to p.o. steroids, transition IV to p.o. diuresis, if stable with these interventions, anticipation discharge over the next 24 hours. Coding Level of Care Code Acute Code for Chg Fwd Diagnoses Right lower lobe pneumonia J18.9 NSTEMI (non-ST elevated myocardial infarction) I21.4 T12 vertebral fracture S22.089A Fall W19.XXXA Hyponatremia E87.1 Leukocytosis D72.829 Allergic rhinitis J30.9
[2023-01-29 16:44] LABS: Alveolar-Arterial Oxygen Gradi 6.5 mmHg (5-10); Arterial Blood Gas Hematocrit 34.8 % (37-47); Blood Gas Allen Test Pos; Blood Gas Sample Site Radial, right; Blood Gas Sample Type Arterial; Carboxyhemoglobin 1.5 %THgb (0.4-20.1); HGB O2 Sat 92.7 % (95-100); Methemoglobin 0.7 % (0.4-1.5); Oxygen Device ROOM AIR; Total Hemoglobin 11.4 g/dL (12-16)
[2023-01-29] MEDS: cetirizine 10 mg Tablet PO (21:06)
[2023-01-29] MEDS: atorvastatin 40 mg Tablet PO (21:06)
[2023-01-30] VITALS (11 sets, daily range): BP systolic 110–121; BP diastolic 65–77; PULSE 80–92; RESP 15–28; TEMP 36.7–37; O2SAT 87–96
[2023-01-30] MEDS: HYDROcodone-acetaminophen 5-325 mg Tablet 1 TAB PO (03:04)
[2023-01-30] MEDS: clopidogrel 75 mg Tablet PO (08:32)
[2023-01-30] MEDS: aspirin 81 mg Chew Tablet PO (08:32)
[2023-01-30] MEDS: spironolactone 25 mg Tablet PO (08:32)
[2023-01-30] MEDS: docusate sodium 100 mg Capsule PO (08:32)
[2023-01-30] MEDS: FUROsemide 20 mg Tablet PO (08:33)
[2023-01-30] MEDS: predniSONE 20 mg Tablet 40 MG PO (08:33)
[2023-01-30] MEDS: losartan 50 mg Tablet 25 MG PO (08:33)
[2023-01-30] MEDS: ipratropium-albuterol 3 mL Neb INHALATION (08:34)
[2023-01-30] MEDS: potassium chloride ER 20 mEq Tablet PO (08:34)
[2023-01-30] MEDS: metoprolol tartrate 25 mg Tablet PO (08:36)
[2023-01-30] MEDS: lidocaine 5% Patch 1 PATCH TOPICAL (08:36)
--- NOTE | 2023-01-30 08:52 | P.PN_ITS ---
Subjective Subjective: The patient is feeling okay. Vital signs are stable. Remains afebrile. No chest pain or shortness of breath. Telemetry shows sinus rhythm. Medications: Medication Review Details: Current Medications Acetaminophen (Acetaminophen 325 Mg Tablet) 650 mg PO Q6H PRN PRN Reason: Mild/Mod Pain Or Temp >/= 101 Last Admin: 01/27/23 10:18 Dose: 650 mg Hydrocodone Bitart/Acetaminophen (Hydrocodone-Acetaminophen 5-325 Mg Tablet) 1 tab PO Q4H PRN PRN Reason: MODERATE PAIN Last Admin: 01/30/23 03:04 Dose: 1 tab Al Hydrox/Mg Hydrox/Simethicone (Cddi-Clj-Fztaoxpnw-Osmany 30 Ml Udc) 30 ml PO Q15M PRN PRN Reason: INDIGESTION Albuterol Sulfate (Albuterol 2.5 Mg/3 Ml Neb) 2.5 mg INHALATION Q4H.RESPIRATORY PRN PRN Reason: SHORTNESS OF BREATH Last Admin: 01/24/23 10:42 Dose: 2.5 mg Albuterol/Ipratropium (Ipratropium-Albuterol 3 Ml Neb) 3 ml INHALATION Q6H.RESP BENITA Last Admin: 01/30/23 08:34 Dose: 3 ml Alprazolam (Alprazolam 0.5 Mg Tablet) 0.25 mg PO TID PRN PRN Reason: ANXIETY Last Admin: 01/28/23 22:11 Dose: 0.25 mg Aspirin (Aspirin 81 Mg Chew Tablet) 81 mg PO DAILY ONE Stop: 01/30/23 09:01 Last Admin: 01/30/23 08:32 Dose: 81 mg Atorvastatin Calcium (Atorvastatin 40 Mg Tablet) 40 mg PO BEDTIME [facility] Last Admin: 01/29/23 21:06 Dose: 40 mg Atropine Sulfate (Atropine 1 Mg/Ml Sdv 1 Ml) 0.5 mg IVP PRN PRN PRN Reason: Symptomatic bradycardia Cetirizine HCl (Cetirizine 10 Mg Tablet) 10 mg PO BEDTIME [facility] Last Admin: 01/29/23 21:06 Dose: 10 mg Clopidogrel Bisulfate (Clopidogrel 75 Mg Tablet) 75 mg PO DAILY [facility] Last Admin: 01/30/23 08:32 Dose: 75 mg Docusate Sodium (Docusate Sodium 100 Mg Capsule) 100 mg PO BID [facility] Last Admin: 01/30/23 08:32 Dose: 100 mg Furosemide (Furosemide 10 Mg/Ml Sdv 4ml) 40 mg IVP Q12H [facility] Last Admin: 01/27/23 09:39 Dose: Not Given Furosemide (Furosemide 20 Mg Tablet) 20 mg PO DAILY@0800 [facility] Last Admin: 01/30/23 08:33 Dose: 20 mg Potassium Chloride/Sodium Chloride (Sodium Chlor 0.9% + Kcl 20 Meq) 20 meq in 1,000 mls @ 0 mls/hr IV .Q10H [facility] Last Infusion: 01/29/23 20:20 Dose: Infused Lidocaine (Lidocaine 5% Patch) 1 patch TOPICAL [id number] [facility] Last Admin: 01/30/23 08:36 Dose: 1 patch Losartan Potassium (Losartan 50 Mg Tablet) 25 mg PO DAILY [facility] Last Admin: 01/30/23 08:33 Dose: 25 mg Magnesium Hydroxide (Magnesium Hydroxide 30 Ml Udc) 30 ml PO Q4H PRN PRN Reason: Constipation/indigestion Metoprolol Tartrate (Metoprolol Tartrate 25 Mg Tablet) 25 mg PO BID@0900,2100 [facility] Last Admin: 01/30/23 08:36 Dose: 25 mg Montelukast Sodium (Montelukast Sodium 10 Mg Tablet) 10 mg PO DAILY PRN PRN Reason: Allergy Symptoms Last Admin: 01/29/23 08:44 Dose: 10 mg Morphine Sulfate (Morphine 4 Mg/Ml Sdv 1 Ml) 2 mg IVP Q4H PRN PRN Reason: SEVERE PAIN Last Admin: 01/25/23 00:53 Dose: 2 mg Nitroglycerin (Nitroglycerin 0.4 Mg Sublingual Tablet) 0.4 mg SUBLINGUAL Q5M PRN PRN Reason: CHEST PAIN Ondansetron HCl (Ondansetron 4 Mg Tablet) 4 mg PO Q8H PRN PRN Reason: NAUSEA Ondansetron HCl (Ondansetron 2 Mg/Ml Sdv 2 Ml) 4 mg IVP Q6H PRN PRN Reason: NAUSEA AND VOMITING Potassium Chloride (Potassium Chloride Er 20 Meq Tablet) 20 meq PO DAILY [facility] Last Admin: 01/30/23 08:34 Dose: 20 meq Potassium Chloride (Potassium Chloride Oral Liq 20 Meq/15 Ml Udc) 20 meq PO ONCE [facility] Last Admin: 01/28/23 09:37 Dose: 20 meq Prednisone (Prednisone 20 Mg Tablet) 40 mg PO DAILY [facility] Last Admin: 01/30/23 08:33 Dose: 40 mg Senna (Sennosides 8.6 Mg Tablet) 17.2 mg PO BEDTIME [facility] Last Admin: 01/29/23 21:06 Dose: Not Given Spironolactone (Spironolactone 25 Mg Tablet) 25 mg PO DAILY [facility] Last Admin: 01/30/23 08:32 Dose: 25 mg Tramadol HCl (Tramadol 50 Mg Tablet) 50 mg PO Q4H PRN PRN Reason: MODERATE PAIN Vitals/I&O/Wt Last Vital Signs Temp 98.3 F 01/30/23 07:12 Pulse 88 01/30/23 08:00 Resp 16 01/30/23 08:00 BP 120/77 01/30/23 08:33 Pulse Ox 91 01/30/23 08:00 O2 Del Method Room Air 01/30/23 08:00 O2 Flow Rate 2 01/30/23 07:12 01/29/23 01/30/23 01/30/23 22:59 06:59 14:59 Intake Total 1480 / 2200 120 / 2320 Balance 1480 / 2200 120 / 2320 Physical Exam Narrative: GENERAL: The patient is alert and oriented times three. Not in any acute distress. HEENT: No significant pallor, icterus or lymphadenopathy.Oral cavity: There are no mucous membrane lesions. NECK: Trachea appears to be central. No masses noted. No JVD or thyromegaly appreciated. RESPIRATORY: Chest is symmetrical. No intercostals muscle retraction or any acce ssory muscle activation. There is no chest wall tenderness. Breath sounds are heard bilaterally. Few scattered coarse crackles at the bases consolidation. BREASTS: Deferred. HEART: The heart sounds are normal. No S3 or S4. Systolic murmur grade 3 or 6 in the left sternal border. No pericardial rub ABDOMEN: No vessel pulsations or distention. No tenderness. No organomegaly appreciated. Bowel sounds are normally heard. : Deferred. RECTAL: Deferred. LYMPHATIC: No lymphadenopathy noted in the neck. EXTREMITIES: No hematoma bleeding at the femoral artery puncture site MUSCULOSKELETAL: No acute joint deformities or swelling SKIN: There are no significant rashes or ecchymosis NEUROPSYCHIATRIC: The patient is alert and oriented x3. Appears to be in a good mood. No tremors or rigidity noted. Urinary Catheter Management: Roche: Cath Placed During This Visit: no Reason for Continuing Indwelling Catheter: Other Data 01/29/23 03:25 01/29/23 03:25 A&P Assessment and plan (1) NSTEMI (non-ST elevated myocardial infarction): Patient currently seems to be stable. May continue on the Plavix and baby aspirin. 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 In view of the complex coronary lesions, it was opted to treat her medically. She is at high risk for surgical intervention. (3) Ischemic cardiomyopathy: Patient currently seems to be with decompensated heart failure. Continue on the current medications for the time being. We may start her on Entresto as an outpatient. (4) Pulmonary hypertension: Management of her pulmonary fibrosis/emphysema as per the pulmonary service. (5) Severe tricuspid regurgitation: Patient has moderately severe tricuspid regurgitation. Currently she will be managed medically. (6) Leukocytosis: Most likely from the steroid use. Management as per the primary. 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 Clinically seems to be stable Plan May continue on the losartan, Lasix, spironolactone, Plavix, baby aspirin, potassium and metoprolol at the current dose. If the patient continues to remain stable, may be discharged home from a cardiac standpoint. Please make an appointment to be seen at the [facility] in 1 to 2 weeks to see the nurse practitioner. Consider starting her on Entresto at that time Appointment with me in the office in 2 months. Attestations Medical Necessity Statement*: Possible discharge home today Coding Level of Care Code 49749 Diagnoses NSTEMI (non-ST elevated myocardial infarction) I21.4 Atherosclerotic heart disease of [place] coronary artery with other forms of angina pectoris I25.118 Ischemic cardiomyopathy I25.5 Pulmonary hypertension I27.20 Severe tricuspid regurgitation I07.1 Leukocytosis D72.829 Pulmonary emphysema with fibrosis of lung J43.9; J84.10 T12 vertebral fracture S22.083G
--- NOTE | 2023-01-30 13:18 | PC.NURSE ---
home oxygen delivered and explained.discharge instructions given and explained to pt and daughter.they verb understanding.discharged via w/c to exit at this time.
--- NOTE | 2023-01-30 23:50 | P.DS_ITS ---
Discharge Providers Date of Admission: 01/22/23 15:01 Date of Discharge: January 30, 2023 Attending Provider at Admission: Manjinder Russell MD Attending Provider at Discharge: Germania Jameson MD Primary Care Provider: Eber Albarran MD Diagnoses at Discharge Discharge Diagnosis (1) NSTEMI (non-ST elevated myocardial infarction): Status: Acute (2) Atherosclerotic heart disease of [place] coronary artery with other forms of angina pectoris: Status: Acute (3) Ischemic cardiomyopathy: Status: Acute (4) Pulmonary hypertension: Status: Acute (5) Severe tricuspid regurgitation: Status: Acute (6) Leukocytosis: Status: Acute (7) Pulmonary emphysema with fibrosis of lung: Status: Acute (8) T12 vertebral fracture: Status: Acute Reason for Visit Reason for Visit: Back pain Hospital Course Hospital Course Karen Hernandes is a 82 year old female, initially admitted to hospital with complaints of severe back pain following a fall at home.? She? sustained? compression fracture of the T12.? She had? kyphoplasty by on 01/23/23.? On 01/24 she started having a severe coughing spell and went into acute hypoxic respiratory failure, requiring 6 L of oxygen by nasal cannula.? She received bronchodilator treatment and IV prednisone.?She was complaining of a tight/heavy feeling in the chest. ? Her initial troponin T was 355.? The 6-hour delta was 50. She was diagnosed with NSTEMI and seen by? Cardiology. Underwent LHC on 01/29/23 and?was found to have severe two-vessel coronary disease with extensive coronary calcification and multiple high-grade complex lesions.? Based on the angiographic findings, she was found to be a very poor candidate for any revascularization procedure.? So it was decided to treat her medically. 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 She was seen by pulmonology. CTA did not show any evidence of pulmonary embolism.? Showed background chronic emphysema with interstitial fibrosis and small bilateral effusions with predominant fluid and airspace infiltrates in right lower lobe and middle lobe.? Suspicious for pneumonia. She was treated with iv abx and iv diuresis, transitioned to oral lasix at discharge. She has done well with these interventions. Her respiratory status is much improved. She is currently on room air. Denies any chest pain, dyspnea, palpitations. Discharged with ASA, plavix. b blockers, ARB, aldactone and Prednisone taper. Follow up with cardiology in one week, pulmonology in one month Physical Exam Narrative: General: No acute distress, AO x3 HEENT: PERRLA, pupils bilaterally equal and reactive, pallors not present Chest: Normal vesicular breath sounds, no added sounds, equal good air entry bilaterally CVS: S1-S2 regular, no murmurs, no tachycardia, no gallops, no rubs Abdomen: Soft, nontender, no organomegaly, bowel sounds present Neuro: No focal deficits, no facial deformity, AO x3, power 5/5 in all limbs Urinary Catheter Management: Roche: Cath Placed During This Visit: no Reason for Continuing Indwelling Catheter: Other Discharge Data Studies Completed and Pending Completed Studies During Hospitalization Category Date Time Status CT PE [CT angio chest PE protcl [id number]] Routine Cat Scan 01/24/23 15:[address] cervical spin wo con* [id number] Stat Cat Scan 01/22/23 13:[address] head wo con* [id number] Stat Cat Scan 01/22/23 13:[address] lumbar spine wo con* [id number] Stat Cat Scan 01/22/23 12:00 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 echo complete* [id number] Routine Ultrasound 01/25/23 17:00 Completed Radiology Impressions Lumbar Spine CT 01/22/23 12:00 IMPRESSION: 1. Acute compression fracture T12 superior endplate with loss of approximately 25% vertebral body height. Minimal retropulsion with slight effacement of ventral thecal sac and mild central canal stenosis. 2. Moderate central canal stenosis L3-L4 due to grade 1 anterolisthesis in combination with facet arthropathy ligamentum flavum hypertrophy. 3. Mild central canal stenosis L4-L5. Notified Rodo Alexander DO at 01/22/2023 1:19 PM. Chest X-Ray 01/22/23 13:25 IMPRESSION: 1. Consolidating infiltrates in the right lower lobe suspicious for pneumonia. 2. Superimposed chronic changes and widespread changes of honeycombing and emphysema noted. Cervical Spine CT 01/22/23 13:26 IMPRESSION: No evidence of acute fracture or dislocation. Head CT 01/22/23 13:26 IMPRESSION: 1. No evidence of intracranial hemorrhage or mass effect. 2. Moderate small vessel changes moderate parenchymal volume loss. 3. Vascular calcification. 4. No acute intracranial findings. Thoracic Spine MRI 01/22/23 17:27 IMPRESSION: Acute compression fracture of T12 vertebral body. No spinal canal compromise. Additional details as above. Chest CTA 01/24/23 15:04 IMPRESSION: 1. No evidence of pulmonary embolus. 2. Chronic emphysematous changes with interstitial fibrosis similar to the prior examinations. 3. Small bilateral pleural effusions with fluid and airspace infiltrates in the RIGHT lower lobe and RIGHT middle lobe. Correlation for pneumonia versus cardiogenic pulmonary edema 4. Reflux into the hepatic veins can be seen with RIGHT heart dysfunction. 5. Prior cholecystectomy. 6. Aberrant RIGHT subclavian artery. Laboratory Results WBC 14.2 10^3/uL (4.0-10.0) H 01/29/23 03:25 RBC 3.66 10^6/uL (4.1-5.3) L 01/29/23 03:25 Hgb 10.9 g/dL (11.5-15.3) L 01/29/23 03:25 Hct 34.2 % (37.0-47.0) L 01/29/23 03:25 MCV 93.4 fl (81-99) 01/29/23 03:25 MCH 29.8 pg (28.0-34.0) 01/29/23 03:25 MCHC 31.9 g/dL (30.0-36.0) 01/29/23 03:25 RDW 13.7 % (12.1-15.1) 01/29/23 03:25 Plt Count 352 10^3/cmm (130-400) 01/29/23 03:25 MPV 10.0 fL (7.4-10.4) 01/29/23 03:25 Neut % (Auto) 87.4 % 01/29/23 03:25 Lymph % (Auto) 8.3 % 01/29/23 03:25 [place] % (Auto) 3.4 % 01/29/23 03:25 Eos % (Auto) 0.0 % 01/29/23 03:25 Baso % (Auto) 0.1 % 01/29/23 03:25 Neut # (Auto) 12.46 10^3/uL (1.8-7.7) H 01/29/23 03:25 Lymph # (Auto) 1.2 10^3/uL (0.8-4.8) 01/29/23 03:25 [place] # (Auto) 0.5 10^3/uL (0.2-0.9) 01/29/23 03:25 Eos # (Auto) 0.0 10^3/uL (0.0-0.8) 01/29/23 03:25 Baso # (Auto) 0.0 10^3/uL (0.0-0.1) 01/29/23 03:25 Nucleated RBC % (auto) 0 % 01/29/23 03:25 Nucleated RBCs # 0.0 /100WBC 01/29/23 03:25 APTT 43.8 SECONDS (23.9-36.7) H 01/28/23 18:21 Specimen Type Arterial 01/29/23 16:32 Sample Site Radial, right 01/29/23 16:32 ABG pH 7.43 (7.35-7.45) 01/24/23 16:08 ABG pCO2 31.1 mmHg (35-45) L 01/24/23 16:08 ABG pO2 45.2 mmHg (80.0-100.0) L 01/24/23 16:08 ABG HCO3 20.4 mmol/L (22-26) L 01/24/23 16:08 ABG O2 Saturation 85.2 01/24/23 16:08 ABG Base Excess -3.2 mmol/L (-2.0-2.0) L 01/24/23 16:08 Alejo Test Pos 01/29/23 16:32 A-a O2 Gradient 6.5 mmHg (5-10) 01/29/23 16:32 Hematocrit 34.8 % (37-47) L 01/29/23 16:32 Hgb O2 Saturation 92.7 % (95-100) L 01/29/23 16:32 Carboxyhemoglobin 1.5 %THgb (0.4-20.1) 01/29/23 16:32 Methemoglobin 0.7 % (0.4-1.5) 01/29/23 16:32 Total Hemoglobin 11.4 g/dL (12-16) L 01/29/23 16:32 Sodium 132.0 mmol/L (131-143) 01/24/23 16:08 Potassium 3.8 mmol/L (3.5-5.0) 01/24/23 16:08 Glucose 131.0 mg/dL (70-115) H 01/24/23 16:08 Ionized Calcium 1.3 mmol/L (1.1-1.4) 01/24/23 16:08 O2 Delivery Device Room air 01/29/23 16:32 O2 Liters/Min 3.0 % 01/24/23 16:08 FiO2 21.0 % 01/28/23 17:17 Outside Sales Consultant ID Eren 01/29/23 16:32 Sodium 136 mmol/L (136-145) 01/29/23 03:25 Potassium 4.4 mmol/L (3.5-5.1) 01/29/23 03:25 Chloride 102 mmol/L (98-107) 01/29/23 03:25 Carbon Dioxide 21 mmol/L (22-29) L 01/29/23 03:25 Anion Gap 17.4 (5-19) 01/29/23 03:25 BUN 30 mg/dL (8-23) H 01/29/23 03:25 Creatinine 0.9 mg/dL (0.5-0.9) 01/29/23 03:25 GFR Calculation Not Reportable 01/29/23 03:25 Glucose 114 mg/dL (65-115) 01/29/23 03:25 Calculated Osmolality 289 mOsm/kg (285-295) 01/29/23 03:25 Calcium 9.1 mg/dL (8.5-10.5) 01/29/23 03:25 Phosphorus 2.3 mg/dL (2.5-4.5) L 01/28/23 02:57 Magnesium 2.1 mg/dL (1.7-2.3) 01/28/23 02:57 Total Bilirubin 0.4 mg/dL (0.15-1.2) 01/29/23 03:25 AST 33 U/L (0-32) H 01/29/23 03:25 ALT 23 U/L (0-33) 01/29/23 03:25 Alkaline Phosphatase 65 U/L (35-105) 01/29/23 03:25 Troponin T Baseline 355 ng/L (0-10) H* 01/24/23 17:15 Troponin T 120 Minute 413.2 ng/L (0-10) H 01/24/23 19:25 Delta Troponin T 58.2 ABS# (0-10) H* 01/24/23 19:25 Troponin T Hi Sens 6Hr 405.3 ng/L (0-10) H 01/24/23 23:00 Troponin T Hi Sens 6Hr Delta 50.3 ng/L (0-12) H* 01/24/23 23:00 C-Reactive Protein 45.4 mg/L (0.0-4.9) H 01/22/23 12:27 NT-Pro-B Natriuret Pep 96643 pg/mL (0-450) H 01/24/23 17:15 Total Protein 6.8 g/dL (6.6-8.7) 01/29/23 03:25 Albumin 3.0 g/dL (3.5-5.2) L 01/29/23 03:25 Globulin 3.8 g/dL (1.3-4.6) 01/29/23 03:25 Procalcitonin 0.12 ng/mL (0-0.5) 01/22/23 12:27 Urine Color Yellow (Yellow) 01/22/23 13:09 Urine Appearance Clear (CLEAR) 01/22/23 13:09 Urine pH 6 (5-7) 01/22/23 13:09 Ur Specific [place] 1.010 (1.005-1.030) 01/22/23 13:09 Urine Protein Neg (Negative) 01/22/23 13:09 Urine Glucose (UA) Norm (Normal) 01/22/23 13:09 Urine Ketones Negative (Negative) 01/22/23 13:09 Urine Blood Neg (Negative) 01/22/23 13:09 Urine Nitrate Negative (Negative) 01/22/23 13:09 Urine Bilirubin Neg (Negative) 01/22/23 13:09 Urine Urobilinogen Norm mg/dL (Negative) 01/22/23 13:09 Ur Leukocyte Esterase Negative (Negative) 01/22/23 13:09 Vitals Last Vital Signs Temp 98.0 F 01/30/23 15:57 Pulse 82 01/30/23 15:57 Resp 15 01/30/23 15:57 BP 121/70 01/30/23 15:57 Pulse Ox 96 01/30/23 15:57 O2 Del Method Nasal Cannula 01/30/23 11:36 O2 Flow Rate 2 01/30/23 09:57 Discharge Plan Discharge Patient Disposition: Home Condition: Stable Prescriptions: New [place]marie Ellipta 100-62.5-25 mcg blister with device 1 inh inhalation DAILY Qty: 60 0RF losartan 50 mg Tablet 25 mg PO DAILY 30 Days Qty: 30 1RF atorvastatin 40 mg Tablet 40 mg PO BEDTIME 30 Days Qty: 30 1RF hydrocodone-acetaminophen 5-325 mg Tablet 1 tab PO Q8H PRN (Reason: Moderate Pain) 5 Days Qty: 15 0RF clopidogrel 75 mg Tablet 75 mg PO DAILY 30 Days Qty: 30 1RF nitroglycerin 0.4 mg Tablet, Sublingual 0.4 mg sublingual Q5M PRN (Reason: Chest Pain) 30 Days Qty: 30 0RF furosemide 20 mg Tablet 20 mg PO DAILY@0800 30 Days Qty: 30 0RF metoprolol tartrate 25 mg Tablet 25 mg PO BID@0900,2100 30 Days Qty: 30 1RF prednisone 10 mg tablet 10 mg PO DIRECTED Qty: 60 0RF Rx Instructions: take 40mg daily for 7 days, then 30 mg daily for 7 days, then 20mg daily for 7 days, then 10mg daily for 7 days, then 5mg daily for maintainence tramadol 50 mg Tablet 50 mg PO Q8H PRN (Reason: Moderate Pain) 5 Days Qty: 15 0RF spironolactone 25 mg Tablet 25 mg PO DAILY 30 Days Qty: 30 1RF aspirin 81 mg tablet,delayed release (DR/EC) 81 mg PO DAILY Qty: 30 0RF Continued albuterol sulfate 90 mcg/actuation HFA aerosol inhaler 2 puff INHALATION Q4H PRN (Reason: Shortness Of Breath) cetirizine 10 mg tablet 10 mg PO BEDTIME acetaminophen 500 mg Tablet 500 mg PO Q6H PRN (Reason: Pain) montelukast 10 mg tablet 10 mg PO DAILY PRN (Reason: Allergy Symptoms) lorazepam 1 mg tablet 0.5 - 1 mg PO DAILY PRN (Reason: Anxiety) Mucinex Fast-Max DM Max 5-100 mg/5 mL Liquid 10 ml PO DAILY PRN (Reason: Congestion) Discharge Orders: Discharge Order (Routine); Ordered 01/30/23 Ordered By: Germania Jameson Other Ambulatory Orders: DME: Oxygen (Order) Location: None Selected Ordered By: Germania Jameson Referrals: Datar,Andrew Ayala MD [Physician] - 1 month ([facility] has been contacted with your appointment information. They will contact you within 24 hours with the appointment information. If you haven't heard from them within that time frame. Please call ) Eber Albarran MD [Primary Care Provider] - 02/06/23 9:30 am (Please follow-up Dr. Albarran on February 06 at 9:30A.M. If you have any questions or need to reschedule. Please call ) Marcelina Cohn FNP [Nurse Practitioner] - 02/06/23 3:30 pm (Please follow-up with Marcelina Cohn on February 06 at 3:30P.M. If you have any questions or need to reschedule. Please call ) Discharge Diet: Advance as tolerated Discharge Activity: Limit activity as instructed Patient Instructions: Metoprolol (By mouth) (Lopressor, Toprol XL), Nitroglycerin (By mouth), Spironolactone (By mouth) ([place], Karospir), Furosemide (By mouth) (Lasix), Hydrocodone/Acetaminophen (By mouth), Prednisone (By mouth) (predniSONE Intensol, Prednicot, Deltasone, Radha), Aspirin (By mouth), Tramadol (By mouth), Losartan (By mouth) (Cozaar), Atorvastatin (By mouth) (Lipitor), Clopidogrel (By mouth) (Plavix), Heart Attack (DC), Pulmonary Fibrosis (DC), Fall Prevention for Older Adults (DC), Using Oxygen at Home (DC), Community Acquired Pneumonia (DC), Kyphoplasty (DC), Heart Catheterization (DC), Opioid Safety, Post Angiogram Home Care Instructions, Post Heart Attack Stoplight, Pneumonia Stoplight Activity Restrictions/Additional Instructions: Thank you for choosing [facility] for your care! The following is a list of instructions, from your provider, to follow upon your discharge to ensure you have the optimal recovery from your recent injury or surgery. Follow-up care is a velazquez part of your treatment and safety. Be sure to make and go to all appointments and call your doctor if you are having problems. If you do not already have a follow-up appointment made, call Dr. Walsh's] office in the next 1-3 days to make follow up appointment for 1 weeks at [phone]. It is also a good idea to know your test results and keep a list of the medicines you take. Medications will be prescribed for you at your provider's discretion. These medications are to be used as instructed; if they are taken more often that prescribed they will not be refilled early and in most cases will not be refilled at all. > When a refill is needed, you should contact ken garduno 2-3 business days before your prescription runs out. Medications will NOT be refilled by extermination supervisor providers after hours! > Many pain medications contain Tylenol (Acetaminophen). Do not consume more than 4,000 mg of Tylenol per day in total with any combination of medi cations. > Pain medications can cause constipation. Please use an over the counter stool softener as directed, while taking pain medications. Consult your local pharmacist with questions or recommendations on stool softeners. If constipation persists, contact our office or your primary care provider. > While under our care, you are not to receive pain medications or other controlled substances from any other provider unless our office is notified and approves. Any attempts to do so will result in refusal to prescribe any further pain medications and possible dismissal from our practice. ? Walking is essential for the healing process after surgery. We would like you to slowly advance your walking. This should be done on relatively flat clear ground (inside or out) or can be done on a treadmill. Remember this goal does not have to happen all at once, slowly increase your distance and duration. This can be broken into more more than one walk per day as tolerated. Patients who walk as directed after surgery rarely require Physical Therapy. In the unlikely event this issue arises your provider will direct hospital staff to make the appropriate arrangements. ? No lifting over 5 pounds {a gallon of milk) or bending/twisting until further notice. Each of these activities places an unnecessary amount of stress onto the body and can impede the delicate healing process. > Instead of bending at the waist, keep your back straight and bend at the knees. > Instead of twisting your torso, keep your back straight and turn your entire body with your feet. ? You may sleep in any position which makes you comfortable. Many patients find comfort sleeping in a reclining chair. It is not abnormal to have difficulty sleeping for the first several weeks following your surgery. We recommend trying Benadry! or Tylenol PM as directed to help with your sleeping difficulties. Both medications are over the counter and available without prescription. ? NO SMOKING!!! Smoking dramatically increases the probability of developing postoperative wound infections. ? Common complaints after lumbar and/or thoracic spine surgery include, but are not limited to: numbness and/or tingling in the legs, pain around the incision and surrounding tissues, muscle spasms, or stiffness of the middle to low back. Contact our office if these symptoms persist or if an acute change occurs. ? No driving for the first 3-5days, and not while taking narcotics until seen at your follow-up appointment and cleared. There are no restrictions for riding on short trips, however if you take a longer trip, arrangements should be made to make regular stops to get out of the vehicle and stretch . ? Swelling is an unfortunate event that will take place with any surgery and is the primary source of your postoperative discomfort. While walking and regular approved activities helps control inflammation, there are additional steps you can take to minimize swelling. > Place ice over the surgical site and surrounding tissue for twenty minutes, followed by applying a low/medium heat (heating pad) for an additional twenty minutes every 1-2 hours as needed for painrelief. > You may use of over the counter anti-inflammatory medications (Ibuprofen, Motrin, Aleve, Advil, etc) as directed on the package label. These types of medicines will significantly reduce the amount of discomfort you experience after surgery from swelling. It should be noted that if you have and allergy to any of these medications, or a history of ulcers or kidney disease you should consult you primary care provider prior to starting these medications. Take prednisone as follows: take 40mg daily for 7 days, then 30 mg daily for 7 days, then 20mg daily for 7 days, then 10mg daily for 7 days, then 5mg daily for maintainence until you see Dr. patrickr Discharge Attestations Time Spent in Discharge Care*: greater than 30 min Quality Metrics Clinical Quality Measures [ Acute Myocardial Infaction { Clinical Trial Participant: No; Contraindication to aspirin: None; Aspirin prescribed; Contraindication to statin: None; Statin prescribed; Contraindication to PCI: None; PCI performed;}] Coding Level of Care Code Acute Code for [facility] Fwd Diagnoses NSTEMI (non-ST elevated myocardial infarction) I21.4 Atherosclerotic heart disease of [place] coronary artery with other forms of angina pectoris I25.118 Ischemic cardiomyopathy I25.5 Pulmonary hypertension I27.20 Severe tricuspid regurgitation I07.1 Leukocytosis D72.829 Pulmonary emphysema with fibrosis of lung J43.9; J84.10 T12 vertebral fracture S22.764B
== END 2023-01-30 13:20 | disposition home or self-care (01) | DRG 515 ==
LOC: ER 13:25 → MEDSURG 15:02 → CSU 01-25 00:38
PROVIDERS: Internal Medicine; Internal Medicine Cardiovascular Disease; Internal Medicine Pulmonary Disease; Orthopaedic Surgery; Admitting Provider Internal Medicine; Emergency Provider Family Medicine; PCP Family Medicine; Visit Provider Student in an Organized Health Care Education/Training Program
PROC: 0PS43ZZ Reposition Thoracic Vertebra, Percutaneous Approach (ICD-10-PCS; principal; 2023-01-23 09:15)
PROC: B2111ZZ Fluoroscopy of Multiple Coronary Arteries using Low Osmolar Contrast (ICD-10-PCS; principal; 2023-01-28 16:30)
DX: S22.080A Wedge compression fracture of T11-T12 vertebra, initial encounter for closed fracture (principal); I21.4 Non-ST elevation (NSTEMI) myocardial infarction; J96.01 Acute respiratory failure with hypoxia; J18.9 Pneumonia, unspecified organism; E87.1 Hypo-osmolality and hyponatremia; W18.30XA Fall on same level, unspecified, initial encounter; I25.118 Atherosclerotic heart disease of native coronary artery with other forms of angina pectoris; I25.5 Ischemic cardiomyopathy; I27.20 Pulmonary hypertension, unspecified; I07.1 Rheumatic tricuspid insufficiency; J43.9 Emphysema, unspecified; J84.10 Pulmonary fibrosis, unspecified; Z79.51 Long term (current) use of inhaled steroids; Z86.16 Personal history of COVID-19; J30.9 Allergic rhinitis, unspecified; Z87.01 Personal history of pneumonia (recurrent)
CPT/HCPCS: 36415; 36600; 51702; 70450; 71045; 71275; 72100; 72125; 72131; 72146; 76000; 80048; 80051; 80053; 80069; 81003; 82330; 82805; 82810; 83735; 83880; 84145; 84484; 85025; 85730; 86140; 86403; 87449; 93005; 93306; 93460; 94640; 94664; 94760; 94762; 96361; 96374; 97110; 97116; 97161; 99152; 99153; 99285; C1751; C1769; C1887; C1894; J0690; J0696; J1100; J1644; J1885; J1940; J2250; J2270; J2405; J2704; J2710; J2930; J3010; J3475; J3480; J3490; J7030; J7120; J7512; J7613; Q0144; Q0163; Q9967

== ENCOUNTER → 2023-02-06 16:15 | Outpatient (BNVA) | payer MEDICARE, SELFPAY | PROVIDERS: PCP Family Medicine; Visit Provider Nurse Practitioner Family | DX: I25.5 Ischemic cardiomyopathy (principal); I25.10 Atherosclerotic heart disease of native coronary artery without angina pectoris; Z09 Encounter for follow-up examination after completed treatment for conditions other than malignant neoplasm | CPT/HCPCS: 80048; 83880; 99214 ==

== ENCOUNTER → 2023-02-07 11:08 | Outpatient (BNVA) | payer MEDICARE, SELFPAY | PROVIDERS: PCP Family Medicine; Visit Provider Internal Medicine Pulmonary Disease | DX: J43.9 Emphysema, unspecified (principal); R13.10 Dysphagia, unspecified; J84.10 Pulmonary fibrosis, unspecified; I25.118 Atherosclerotic heart disease of native coronary artery with other forms of angina pectoris; I27.20 Pulmonary hypertension, unspecified; Z87.891 Personal history of nicotine dependence | CPT/HCPCS: 99204 ==

== ENCOUNTER 2023-02-21 12:36 | Emergency (ER) | payer MEDICARE, SELFPAY ==
[2023-02-21 12:39] VITALS: BP 97/61; PULSE 113; RESP 18; TEMP 36.7; O2SAT 97; BMI 16.5
--- NOTE | 2023-02-21 13:06 | W.ED.WEAKNES ---
HPI - Weakness General: Chief complaint: Weakness Stated complaint: weakness Time Seen by Provider: 02/21/23 12:46 Source: patient and family Mode of arrival: EMS Limitations: no limitations History of Present Illness: This patient was transported from her home by EMS. History is provided by the patient as well as the daughter who is present. Apparently the patient had a syncopal episode at home approximately 1 month ago. She went to being evaluated in this emergency department admitted to the hospital. She had suffered a thoracic compression fracture and had a concomitant pneumonia which likely led to her syncope and fall. While in the hospital she apparently had some cardiovascular issues and wind up having an angiogram which showed multiple vessel disease including the LAD with heavy calcifications none of which were amenable to stenting. It was decided to treat her medically. She continues to have respiratory compromise and is being followed by pulmonology and is currently on home oxygen as well. Since discharge from the hospital and returning back to home the patient's constitution has not returned back to her premorbid baseline. She states she is normally full of energy. She lives alone. She states that since that time she her energy level has not returned to anywhere near her normal state. She has not any fevers or chills. She states she is drinking normally. She states she does eat some predominantly protein shakes etc. as her lower dentures are ill fitting this after some weight loss since they were initially placed and she cannot chew well. She is compliant with her medications and wears her oxygen as directed. She denies any concomitant chest pain or shortness of breath. She denies any nausea vomiting or diarrhea. Daughter states that she seemed to be more weak today and therefore EMS was notified. She has not had a posthospitalization follow-up with her primary care physician yet. The patient's past history is essentially unremarkable. She took no medications prior to her recent hospitalization. She has had a few minor surgeries but nothing significant and was not a tobacco user and was very vigorous and active all her life according to the patient. Daughter wonders if some of her current symptoms may be related to the host of medications which she began after hospitalization. MD Complaint: generalized weakness Location: generalized Associated symptoms: Denies chest pain, chills, confusion, dysuria, fever(s), headache(s), nausea, syncope or vomiting Review of Systems Const: Reports: malaise; Denies: fever(s) or chills Eyes: Denies: change in vision ENMT: Denies: throat pain, odynophagia, nasal discharge or nasal congestion Card: Denies: chest pain, palpitations, irregular heart rhythm, edema, syncope or pre-syncope Resp: Reports: non-productive cough; Denies: dyspnea, wheezing or stridor GI: Denies: abdominal pain, nausea, vomiting or diarrhea : Denies: flank pain, difficulty voiding, dysuria or urinary frequency Musc: Denies: neck pain, extremity pain or extremity swelling Skin/Breast: Denies: rash Neuro: Denies: headache(s), numbness in extremities, weakness in extremities, confusion or Slurred speech present Psych: Denies: anxiety or depression PFSH ED PFSH: Medical History Allergic rhinitis COVID Pneumonia Surgical History H/O section History of abdominal surgery Family History Father Myocardial infarction Family/Other Breast cancer Social History Smoking and tobacco status: former smoker Quit status (tobacco): has quit using tobacco Year quit tobacco: 50-60 years ago Alcohol intake: never Substance/Drug Use: never Physical Exam Narrative: EXAM NARRATIVE: She is a alert but thin elderly woman who answers questions in a goal-directed fashion. Appears to be comfortable. Const: COMMON NORMALS: no acute distress, patient oriented x3 and alert GENERAL APPEARANCE: cooperative and comfortable NUTRITIONAL APPEARANCE: thin and underweight HENMT: COMMON NORMALS: normocephalic, Normal nasal mucous membranes and turbinates present, moist oral mucous membranes and oropharynx normal HEAD & SCALP: normocephalic FACE & SINUS: normal facial exam NOSE: Normal nasal mucous membranes and turbinates present TEETH & GINGIVA: Yes dentures Eye: COMMON NORMALS: Equal, round and reactive pupils present, EOMs intact bilaterally and conjunctivae normal CONJUNCTIVA: Yes conjunctivae normal PUPIL: Yes Equal, round and reactive pupils present Neck/C-Spine: COMMON NORMALS: full ROM, no lymphadenopathy, no JVD, Thyroid normal and No carotid bruits THYROID: Thyroid normal Chest: COMMONS NORMALS: normal inspection of the chest Resp: COMMON NORMALS: normal respiratory effort and No use of accessory muscles EFFORT & INSPECTION: Yes able to speak in complete sentences AUSCULTATION: crackles Cardio: COMMON NORMALS: no JVD, regular rate, regular rhythm, No murmurs present (Cardio) and Peripheral pulses 2+ throughout RATE: regular rate RHYTHM: regular rhythm PERIPHERAL PULSES: Peripheral pulses 2+ throughout GI: COMMON NORMALS: Normal to inspection, nondistended, normoactive bowel sounds present, Soft to palpation, non-tender and No hepatosplenomegaly present PALPATION: Yes Soft to palpation and Yes No hepatosplenomegaly present : COMMON NORMALS: Yes no CVA tenderness BLADDER/KIDNEY EXAM: Yes no CVA tenderness Back/Pelvis: COMMON NORMALS: no CVA tenderness, no thoracic nor lumbar tenderness and thoraco-lumbar ROM normal Extremity: COMMON NORMALS: normal to inspection, full ROM, capillary refill normal, no calf tenderness and no pedal edema Neuro: COMMON NORMALS: patient oriented x3, moves all extremities and no focal motor deficits SENSORIUM/ORIENTATION: Yes alert CRANIAL NERVES: Yes CN normal except as noted Psych: COMMON NORMALS: mental status grossly normal and cooperative Skin: COMMON NORMALS: no rashes or lesions noted, no wounds, turgor normal and no jaundice GENERAL SKIN EXAM: no rashes or lesions noted and turgor normal Course Reevaluation(s): Reevaluation #1: Patient has been observed in the emergency department with and received IV hydration. Laboratories have been completed. She is had no significant change in her troponin. Her EKGs have not shown any dynamic changes either. No evidence at this time to suggest ACS, worsening heart failure etc. She has significant coronary disease which is being managed medically by cardiology in addition to her chronic lung disease. No evidence at this time of an emergency medical condition that requires further stabilization. I discussed all her findings with both she and her daughter. She stated that she was comfortable at this point and felt better and desired to be discharged to outpatient follow-up. Time: 19:01 Vital Signs: Vital signs: Vital Signs Temperature 98.1 F 02/21/23 12:39 Pulse Rate 113 H 02/21/23 12:39 Respiratory Rate 18 02/21/23 12:39 Blood Pressure 97/61 02/21/23 12:39 Pulse Oximetry 97 02/21/23 12:39 Oxygen Delivery Me thod Nasal Cannula 02/21/23 12:39 Oxygen Flow Rate 2 02/21/23 12:39 MDM - Weakness Medical Decision Making Patient recently admitted and discharged from this facility with a fall with resultant compression fracture and then resultant discovery of significant coronary disease and pulmonary fibrosis. She states that her prehospitalization level of activity or as significantly higher than it has been since she has been discharged and at home. She is here today because she is felt globally weak. There is no history of fevers or chills she has been taking all her medications regularly and wonders if her medications may be contributing to how she feels. She does admit that she has poorly fitting lower dentures and has not been able to eat well because of that situation. Her clinical examination revealed her to be alert and in good spirits. No focal findings on clinical examination to suggest an ongoing acute clinical picture. Differential diagnosis included her chronic and newly diagnosed conditions of ischemic cardiomyopathy, pulmonary fibrosis with oxygen requirement, possible worsening pneumonia, possible dehydration possible urinary tract infection, possible ACS. Longitudinal evaluation in the emergency department revealed no dynamic changes on EKG, her serial troponins did not reveal any significant elevations that suggested ACS. She has a BNP which is improved from prior BMPs albeit still elevated. No evidence of fluid overload clinically. No evidence of urinary tract infection or significant pulmonary infiltrates at this time. Her previously noted right sided infiltrate had improved from her hospitalization. In essence this lady who likely had developing conditions over the years which were unmasked by her fall and hospitalization. As a result of those conditions being diagnosed or discovered she was initiated on a appropriate treatment regimen which likely is helping her but may or may not be contributing to her global sense of fatigue. More likely it is due to her underlying conditions and her recovery from her recent hospitalization. This was all reviewed with both she and her daughter and detail and discussed expected course and also recommended continued hydration orally as well as contacting her dentist to arrange reevaluation of her lower denture to allow her to eat more effectively. She is currently stable at this time and desires to be discharged and we will discharge her to outpatient follow-up. She has arrangements to see her primary care doctor next week as well as a subsequent visits with pulmonology and cardiology. Lab Data I reviewed the patient's lab results. 02/21/23 12:48 02/21/23 12:48 Radiology Impressions Chest X-Ray 02/21/23 13:09 Impression: 1. Patchy right lower lobe opacity which has partly cleared. 2. Diffuse patchy opacity throughout both lungs consistent with chronic interstitial lung disease. 3. Atherosclerosis. Laboratory Results WBC 11.9 10^3/uL (4.0-10.0) H 02/21/23 12:48 RBC 4.10 10^6/uL (4.1-5.3) 02/21/23 12:48 Hgb 12.3 g/dL (11.5-15.3) 02/21/23 12:48 Hct 37.9 % (37.0-47.0) 02/21/23 12:48 MCV 92.4 fl (81-99) 02/21/23 12:48 MCH 30.0 pg (28.0-34.0) 02/21/23 12:48 MCHC 32.5 g/dL (30.0-36.0) 02/21/23 12:48 RDW 15.3 % (12.1-15.1) H 02/21/23 12:48 Plt Count 311 10^3/cmm (130-400) 02/21/23 12:48 MPV 9.6 fL (7.4-10.4) 02/21/23 12:48 Neut % (Auto) 83.1 % 02/21/23 12:48 Lymph % (Auto) 11.8 % 02/21/23 12:48 [place] % (Auto) 3.7 % 02/21/23 12:48 Eos % (Auto) 0.6 % 02/21/23 12:48 Baso % (Auto) 0.3 % 02/21/23 12:48 Neut # (Auto) 9.86 10^3/uL (1.8-7.7) H 02/21/23 12:48 Lymph # (Auto) 1.4 10^3/uL (0.8-4.8) 02/21/23 12:48 [place] # (Auto) 0.4 10^3/uL (0.2-0.9) 02/21/23 12:48 Eos # (Auto) 0.1 10^3/uL (0.0-0.8) 02/21/23 12:48 Baso # (Auto) 0.0 10^3/uL (0.0-0.1) 02/21/23 12:48 Nucleated RBC % (auto) 0 % 02/21/23 12:48 Nucleated RBCs # 0.0 /100WBC 02/21/23 12:48 ESR 76 mm/hr (0-15) H 02/21/23 12:48 Sodium 132 mmol/L (136-145) L 02/21/23 12:48 Potassium 4.0 mmol/L (3.5-5.1) 02/21/23 12:48 Chloride 93 mmol/L (98-107) L 02/21/23 12:48 Carbon Dioxide 27 mmol/L (22-29) 02/21/23 12:48 Anion Gap 16.0 (5-19) 02/21/23 12:48 BUN 35 mg/dL (8-23) H 02/21/23 12:48 Creatinine 0.9 mg/dL (0.5-0.9) 02/21/23 12:48 GFR Calculation Not Reportable 02/21/23 12:48 Glucose 107 mg/dL (65-115) 02/21/23 12:48 Calculated Osmolality 282 mOsm/kg (285-295) L 02/21/23 12:48 Calcium 9.9 mg/dL (8.5-10.5) 02/21/23 12:48 Magnesium 1.9 mg/dL (1.7-2.3) 02/21/23 12:48 Total Bilirubin 0.7 mg/dL (0.15-1.2) 02/21/23 12:48 AST 23 U/L (0-32) 02/21/23 12:48 ALT 14 U/L (0-33) 02/21/23 12:48 Alkaline Phosphatase 81 U/L (35-105) 02/21/23 12:48 Troponin T Baseline 20 ng/L (0-10) H 02/21/23 12:48 Troponin T 120 Minute 16.36 ng/L (0-10) H 02/21/23 14:35 Delta Troponin T -3.64 ABS# (0-10) L 02/21/23 14:35 Troponin T Hi Sens 6Hr 14.87 ng/L (0-10) H 02/21/23 18:00 Troponin T Hi Sens 6Hr Delta -5.13 ng/L (0-12) L 02/21/23 18:00 NT-Pro-B Natriuret Pep 2100 pg/mL (0-450) H 02/21/23 12:48 Total Protein 7.7 g/dL (6.6-8.7) 02/21/23 12:48 Albumin 3.5 g/dL (3.5-5.2) 02/21/23 12:48 Globulin 4.2 g/dL (1.3-4.6) 02/21/23 12:48 TSH 1.40 uIU/mL (0.27-4.20) 02/21/23 12:48 Urine Color Straw (Yellow) 02/21/23 14:01 Urine Appearance Clear (CLEAR) 02/21/23 14:01 Urine pH 7 (5-7) 02/21/23 14:01 Ur Specific [place] 1.010 (1.005-1.030) 02/21/23 14:01 Urine Protein Neg (Negative) 02/21/23 14:01 Urine Glucose (UA) Norm (Normal) 02/21/23 14:01 Urine Ketones Negative (Negative) 02/21/23 14:01 Urine Blood Neg (Negative) 02/21/23 14:01 Urine Nitrate Negative (Negative) 02/21/23 14:01 Urine Bilirubin Neg (Negative) 02/21/23 14:01 Urine Urobilinogen Norm mg/dL (Negative) 02/21/23 14:01 Ur Leukocyte Esterase Negative (Negative) 02/21/23 14:01 EKG Data EKG 1: I personally reviewed and interpreted this EKG as follows: Interpretation: Contemporaneous review of EKG reveals a ventricular rate of 114 bpm consistent with sinus tachycardia. She has normal SD interval, QRS duration, corrected QT interval. [place] was within normal range limits. She does have evidence of loss of R wave on V2 suggestive of possible prior septal NH. She also has nonspecific ST-T wave changes with some mild ST depression in the [address] segment changes appear to be new compared with the most recent tracing within the system. EKG 2: I personally reviewed and interpreted this EKG as follows: Interpretation: Contemporaneous review of the second EKG this visit reveals a ventricular rate of 100 bpm. Normal SD interval, normal QRS duration, normal corrected QT interval. Patient has nonspecific ST-T wave changes lateral leads unchanged from prior tracing this visit. Discharge Plan Discharge Patient Disposition: Home Clinical Impression: Ischemic cardiomyopathy, Dehydration, Pulmonary fibrosis Condition: Stable Prescriptions: No Action hydrocodone-acetaminophen 5-325 mg tablet 1 tab PO Q8H PRN (Reason: Pain) fluticasone propionate [Children's Flonase Allergy Rlf] 50 mcg/actuation spray,suspension 1 spray intranasal DAILY PRN (Reason: Nasal Congestion) Rx Instructions: administer into each nostril albuterol sulfate 90 mcg/actuation HFA aerosol inhaler 2 puff INHALATION Q4H PRN (Reason: Shortness Of Breath) tramadol 50 mg tablet 50 mg PO Q8H PRN (Reason: Pain) Lasix 20 mg Tablet 20 mg PO DAILY cetirizine 10 mg tablet 10 mg PO BEDTIME acetaminophen 500 mg Tablet 500 mg PO Q6H PRN (Reason: Pain) montelukast 10 mg tablet 10 mg PO DAILY PRN (Reason: Allergy Symptoms) lorazepam 1 mg tablet 0.5 - 1 mg PO DAILY PRN (Reason: Anxiety) Trelegy Ellipta 100-62.5-25 mcg blister with device 1 inh inhalation DAILY Qty: 60 0RF losartan 50 mg Tablet 25 mg PO DAILY 30 Days Qty: 30 1RF atorvastatin 40 mg Tablet 40 mg PO BEDTIME 30 Days Qty: 30 1RF clopidogrel 75 mg Tablet 75 mg PO DAILY 30 Days Qty: 30 1RF nitroglycerin 0.4 mg Tablet, Sublingual 0.4 mg sublingual Q5M PRN (Reason: Chest Pain) 30 Days Qty: 30 0RF metoprolol tartrate 25 mg Tablet 25 mg PO BID@0900,2100 30 Days Qty: 30 1RF prednisone 10 mg tablet 10 mg PO DIRECTED Qty: 60 0RF Rx Instructions: take 40mg daily for 7 days, then 30 mg daily for 7 days, then 20mg daily for 7 days, then 10mg daily for 7 days, then 5mg daily for maintainence spironolactone 25 mg Tablet 25 mg PO DAILY 30 Days Qty: 30 1RF aspirin 81 mg tablet,delayed release (DR/EC) 81 mg PO DAILY Qty: 30 0RF Discharge Orders: Discharge ED (Routine); Ordered 02/21/23 Ordered By: Will Bailey Referrals: Eber Albarran MD [Primary Care Provider] - Discharge Diet: Usual diet Discharge Activity: Increase activity as tolerated, Use walker/crutches as instructed and Oxygen as instructed Patient Instructions: Opioid Safety, Pain Management Activity Restrictions/Additional Instructions: Continue all your usual medications. We recommend visiting your dentist for reevaluation of your lower denture to ensure proper fitment to allow you to eat better. Follow-up with your primary care doctor as scheduled. Also follow-up with the lung doctor and heart doctor as previously scheduled. If you develop any concerning or worsening symptoms you are welcome to return to the emergency department at any time. 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
--- NOTE | 2023-02-21 13:09 | XR_ITS ---
WS: [id number] Portable AP upright chest, 02/21/2023 Clinical Data: weakness, cough Comparison: Portable chest, 01/22/2023 Findings: The patchy right lower lobe opacity has partly resolved. There is residual opacity. There i s still opacity over the surface of the diaphragm. There are fibrotic changes throughout the lungs. T he heart is normal. The aortic arch shows tortuosity. No nodules or masses are seen. Monitor leads ar e on the chest wall. There is vertebroplasty cement in a lower thoracic vertebral body. XR/XR chest 1V portable [id number] Impression: 1. Patchy right lower lobe opacity which has partly cleared. 2. Diffuse patchy opacity throughout both lungs consistent with chronic interst itial lung disease. 3. Atherosclerosis.
--- NOTE | 2023-02-21 13:10 | ECG_ITS ---
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 Measurements Intervals [place] Rate: 114 P: 58 FL: 176 QRS: -5 QRSD: 85 T: 30 QT: 285 QTc: 392 Interpretive Statements SINUS TACHYCARDIA SEPTAL MYOCARDIAL INFARCTION , PROBABLY OLD [40+ ms Q WAVE IN V1/V2] MODERATE T-WAVE ABNORMALITY, CONSIDER ANTEROLATERAL ISCHEMIA [-0.1+ mV T-WAVE IN V3-V6] Compared to ECG 01/26/2023 14:29:33 Sinus rhythm no longer present Myocardial infarct finding still present T-wave abnormality still present Possible ischemia still present Electronically Signed On 02-21-2023 20:38:22 CDT by Corrie Beard M.D. [id number]
[2023-02-21 13:37] LABS: Basophils % 0.3 %; Eosinophils # 0.1 10^3/uL (0.0-0.8); Eosinophils % 0.6 %; Hematocrit 37.9 % (37.0-47.0); Hemoglobin 12.3 g/dL (11.5-15.3); Lymphocytes # 1.4 10^3/uL (0.8-4.8); Lymphocytes % 11.8 %; Mean Corpuscular HGB Conc 32.5 g/dL (30.0-36.0); Mean Corpuscular Volume 92.4 fl (81-99); Mean Platelet Volume 9.6 fL (7.4-10.4); Monocytes # 0.4 10^3/uL (0.2-0.9); Monocytes % 3.7 %; Neutrophils # 9.86 10^3/uL (1.8-7.7); Neutrophils % 83.1 %; Nucleated Red Blood Cells % 0 %; Platelet Count 311 10^3/cmm (130-400); Red Cell Distribution Width 15.3 % (12.1-15.1); White Blood Count 11.9 10^3/uL (4.0-10.0)
[2023-02-21 13:49] LABS: Troponin(5th) Baseline 20 ng/L (0-10)
[2023-02-21 13:54] LABS: Erythrocyte Sedimentation Rate 76 mm/hr (0-15)
[2023-02-21 13:59] LABS: Alanine Aminotransferase 14 U/L (0-33); Albumin Level 3.5 g/dL (3.5-5.2); Alkaline Phosphatase 81 U/L (35-105); Aspartate Amino Transferase 23 U/L (0-32); Blood Urea Nitrogen 35 mg/dL (8-23); Calcium 9.9 mg/dL (8.5-10.5); Carbon Dioxide 27 mmol/L (22-29); Chloride 93 mmol/L (98-107); Globulin 4.2 g/dL (1.3-4.6); Glucose 107 mg/dL (65-115); Magnesium 1.9 mg/dL (1.7-2.3); NT Pro B Type Natriuretic Pept 2100 pg/mL (0-450); Osmolality Calculated 282 mOsm/kg (285-295); Sodium 132 mmol/L (136-145); Total Bilirubin 0.7 mg/dL (0.15-1.2); Total Protein 7.7 g/dL (6.6-8.7)
[2023-02-21] MEDS: sodium chloride 0.9% 1,000 ML 999 ML IV (14:05)
[2023-02-21 14:10] LABS: Add Urine Microscopic? NO; Charge for UA Resulting for Rev
[2023-02-21 14:28] LABS: Bilirubin Urine Neg (Negative); Blood Urine Neg (Negative); Glucose Urine UA Norm (Normal); Ketones Urine Negative (Negative); Leukocyte Esterase Urine Negative (Negative); Nitrate Urine Negative (Negative); Protein Urine Neg (Negative); Urine Appearance Clear (CLEAR); Urine Color Straw (Yellow); Urobilinogen Urine Norm (Negative); pH Urine 7 (5-7)
[2023-02-21 15:01] LABS: Troponin 5 2HR 16.36 ng/L (0-10)
[2023-02-21 15:08] LABS: Troponin 5 2HR Delta -3.64 ABS# (0-10)
--- NOTE | 2023-02-21 15:10 | ECG_ITS ---
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 Measurements Intervals [place] Rate: 100 P: 58 ID: [id number] QRS: -3 QRSD: 80 T: 4 QT: 316 QTc: 407 Interpretive Statements SINUS TACHYCARDIA LOW QRS VOLTAGE IN EXTREMITY LEADS [QRS DEFLECTION < 0.5 mV IN LIMB LEADS] MODERATE T-WAVE ABNORMALITY, CONSIDER ANTEROLATERAL ISCHEMIA [-0.1+ mV T-WAVE IN V3-V6] Compared to ECG 02/21/2023 12:43:19 Low QRS voltage now present Myocardial infarct finding no longer present T-wave abnormality still present Possible ischemia still present Electronically Signed On 02-21-2023 21:24:01 CDT by Corrie Beard M.D. [id number]
--- NOTE | 2023-02-21 16:31 | PC.NURSE ---
WHILE AT BEDSIDE PT IS IN NAD. PT DENIES ANY NEEDS AT THIS TIME.
[2023-02-21 18:25] LABS: Troponin 5 6HR 14.87 ng/L (0-10)
[2023-02-21 18:26] LABS: Troponin 5 6HR Delta -5.13 ng/L (0-12)
--- NOTE | 2023-02-21 18:57 | PC.NURSE ---
REPORT GIVEN TO [facility].
[2023-02-21 18:59] VITALS: BP 90/62; PULSE 90; RESP 18; O2SAT 96
[2023-02-21 19:18] VITALS: PULSE 96; RESP 18; O2SAT 96
== END 2023-02-21 19:18 | disposition home or self-care (01) ==
PROVIDERS: Emergency Provider Emergency Medicine; PCP Family Medicine
DX: I25.5 Ischemic cardiomyopathy (principal); E86.0 Dehydration; J84.10 Pulmonary fibrosis, unspecified; Z79.82 Long term (current) use of aspirin; Z87.891 Personal history of nicotine dependence
CPT/HCPCS: 36415; 71045; 80053; 81003; 83735; 83880; 84443; 84484; 85025; 85651; 93005; 96360; 99285; J7030

== ENCOUNTER 2023-02-26 09:11 | Outpatient (CLI) | payer MEDICARE, SELFPAY ==
--- NOTE | 2023-02-26 09:30 | FL_ITS ---
WS: [id number] Exam: FL barium swallow [id number] Date/Time of Exam: 02/26/2023 9:32 AM Reason For Exam: DYSPHAGIA, UNSPECIFIED Fluoroscopy time: 2min [id number] minutes # of spot films: Swallowing function at the level of the oropharynx was normal. No aspiration was identified. There is marked tertiary spasm of the esophagus with altered motility. No definite sign of esophageal strictu re or mass was noted. There are several filling defects within the esophagus that likely represent re tained food debris. The esophagus is somewhat tortuous. No hiatal hernia or gastroesophageal reflux w as demonstrated. FL/FL barium swallow [id number] IMPRESSION: 1. Marked tertiary spasm of the esophagus and altered motility. There appears t o be some retained food debris in the esophagus. 2. No sign of esophageal stricture or obvious mass.
== END 2023-02-26 09:12 | disposition home or self-care (01) ==
LOC: RAD 09:15
PROVIDERS: PCP Family Medicine; Visit Provider Internal Medicine Pulmonary Disease
DX: R13.10 Dysphagia, unspecified (principal); K22.4 Dyskinesia of esophagus
CPT/HCPCS: 74220

== ENCOUNTER 2023-03-04 15:54 | Outpatient (CLI) | payer MEDICARE, SELFPAY ==
--- NOTE | 2023-03-04 16:03 | CT_ITS ---
WS: [id number] CT chest w con* [id number] HISTORY: EMPHYSEMA, UNSPECIFIED. PULMONARY FIBROSIS, UNSPECIFIED TECHNIQUE: Axial imaging performed through the thorax. Coronal and sagittal reformats are submitted. All CT scans at [facility] use at least one of these dose optimization techniques: automated exposure control; mA and/or kV adjustment per patient size (includes targeted exams where dose is mat ched to clinical indication); or iterative reconstruction. CONTRAST: Omnipaque 350; 75 mL IV. DLP: 127.71 mGy.cm COMPARISON: 01/24/2023 and 02/03/2019 Lungs and central airway: Lung volumes are decreased. Severe centrilobular emphysema. There is an add itional background of bronchiectasis and reticular thickening greatest in the lower lung [place], RIGH T greater than LEFT. Marked honeycombing with traction bronchiectasis predominantly throughout the RI GHT lung and greatest at the RIGHT lung base. Very similar to the prior studies. Consolidation in the RIGHT middle lobe and RIGHT lower lobes are associated with the interstitial lung disease and simila r to prior studies. No obvious mass. Pleura: No pleural effusion. Heart and pericardium: Normal size heart with no pericardial effusion. Mediastinum and darlene: No adenopathy identified. Vessels: Extensive atherosclerosis thoracic aorta. Calcification continues into the great vessels. Ab errant RIGHT subclavian artery. Heavy calcification in the coronary arteries. Chest wall and lower neck: Asymmetric soft tissue in the RIGHT breast is unchanged. Upper abdomen: Atherosclerotic plaque continues into the suprarenal aorta and the mesenteric arteries . Osseous structures: Increase in thoracic kyphosis. T12 compression fracture with vertebroplasty. CT/CT chest w con* [id number] IMPRESSION: 1. Lung volume loss with advanced changes of interstitial pulmonary fibrosis. Greatest throughout the RIGHT lung. 2. Moderate atherosclerotic changes throughout the thoracic and suprarenal aor ta. Marked coronary artery calcifications. 3. No definite pneumonia identified. The conglomerate soft tissue masses throu ghout the RIGHT lung appear relatively stable and are probably associated with the patient's chronic pulmonary fibrosis.
[2023-03-04] MEDS: iohexol 350 mg/mL 500 mL Btl (per mL) IV (16:28)
== END 2023-03-04 15:55 | disposition home or self-care (01) ==
LOC: RAD 15:57
PROVIDERS: PCP Family Medicine; Visit Provider Internal Medicine Pulmonary Disease
DX: J43.9 Emphysema, unspecified (principal); J84.10 Pulmonary fibrosis, unspecified
CPT/HCPCS: 71260; 99204; Q9967

== ENCOUNTER 2023-03-07 12:38 | Outpatient (CLI) | payer MEDICARE, SELFPAY | END 2023-03-07 12:39 | disposition home or self-care (01) | LOC: RT 12:44 | PROVIDERS: PCP Family Medicine; Visit Provider Internal Medicine Pulmonary Disease | DX: J84.9 Interstitial pulmonary disease, unspecified (principal) | CPT/HCPCS: 94010; 94618; 94726; 94729 ==

== ENCOUNTER 2023-04-04 17:56 | Inpatient (IN) | payer MEDICARE, SELFPAY ==
[2023-04-04] VITALS (19 sets, daily range): BP systolic 72–103; BP diastolic 42–66; PULSE 51–122; RESP 12–20; TEMP 38.8; O2SAT 92–100; BMI 16.8
--- NOTE | 2023-04-04 17:58 | ED_ITS ---
HPI - General Adult General: Chief complaint: Fever Stated complaint: sepsis Time Seen by Provider: 04/04/23 17:58 Limitations: altered mental status History of Present Illness: 82-year-old lady presenting for [facility] with suspected sepsis. She had a history of back surgery and apparently had back pain as an initial call however patient was found to be tachypneic, tachycardic, febrile with soft blood pressure concerning for sepsis. She has baseline underlying lung disease and feels constantly short of breath. She does endorse cough but is unsure if this is worse than baseline. History is otherwise limited by mild alteration in mental status with unclear baseline. No other specific changes in health, exacerbating, or alleviating factors identified. Review of Systems General: Reports: ROS unobtainable due to mental status PFSH ED PFSH: Medical History (Updated 04/11/23 @ 00:02 by AMY Mota) Allergic rhinitis Atherosclerotic heart disease of [place] coronary artery with other forms of angina pectoris Cardiomyopathy COVID Ischemic cardiomyopathy Pneumonia Pulmonary emphysema with fibrosis of lung Severe tricuspid regurgitation Traumatic compression fracture of T12 thoracic vertebra Surgical History H/O section History of abdominal surgery Family History Father Myocardial infarction Family/Other Breast cancer Social History Smoking and tobacco status: former smoker Quit status (tobacco): has quit using tobacco Year quit tobacco: 50-60 years ago Alcohol intake: never Substance/Drug Use: never Physical Exam Const: COMMON NORMALS: alert GENERAL APPEARANCE: cooperative, well developed and ill appearing HENMT: COMMON NORMALS: normocephalic and atraumatic HEAD & SCALP: normocephalic and atraumatic THROAT: posterior oropharynx normal Eye: COMMON NORMALS: conjunctivae normal CONJUNCTIVA: Yes conjunctivae normal SCLERA: sclerae normal Neck/C-Spine: COMMON NORMALS: supple GENERAL: Yes trachea midline Resp: EFFORT & INSPECTION: Yes able to speak in complete sentences A USCULTATION: rhonchi Cardio: COMMON NORMALS: regular rhythm RATE: tachycardic RHYTHM: regular rhythm GI: COMMON NORMALS: Soft to palpation PALPATION: Yes Soft to palpation and No Tenderness to palpation present (GI) Extremity: GENERAL: Yes normal exam except as noted and No edema Neuro: COMMON NORMALS: moves all extremities SENSORIUM/ORIENTATION: Yes alert and Yes Orientation impaired Course Vital Signs: Vital signs: Vital Signs Temperature 97.6 F 04/10/23 07:07 Pulse Rate 62 04/10/23 13:41 Respiratory Rate 16 04/10/23 13:41 Blood Pressure 128/84 04/10/23 13:41 Pulse Oximetry 92 04/10/23 13:41 Oxygen Delivery Me thod Room Air 04/10/23 08:00 Oxygen Flow Rate 1.5 04/10/23 08:00 [facility] - General Adult Medical Decision Making 82-year-old lady presenting with shortness of breath and fever and tachycardia. Somewhat ill on appearance. No evidence of impending airway failure requiring immediate intubation. Labs notable for leukocytosis and thrombocytosis. Likely infectious in nature. ABG with hypoxemia and respiratory alkalosis compensating. Metabolic panel with hyponatremia, elevated anion gap, mildly elevated creatinine. Lactic acid is surprisingly normal. Negative range 2-hour delta troponin. Viral panel pending. Urinalysis pending. Chest x-ray with interstitial fibrosis and right greater than left infiltrate concerning for infectious process, no pneumothorax. Given severity of illness and limited history secondary to mental status patient requires further imaging. CT head similar to prior with no evidence of acute pathology. Chest abdomen pelvis confirms likely pneumonia with severe underlying baseline lung disease. EKG demonstrates sinus tachycardia, nonspecific ST segment abnormalities, no STEMI. Patient treated with RT treatment, antipyretic, broad-spectrum antibiotics, 30 cc/kg fluids. The results of ED evaluation were discussed with the patient including plan for admission due to requirement for level of care not available if discharged to prevent significant worsening/deterioration. Patient agreeable with plan. Discussed with hospitalist service who was agreeable to admit patient. Medical Records I reviewed the patient's medical records. Lab Data I reviewed the patient's lab results. 04/10/23 05:25 04/10/23 07:48 Radiology Impressions Chest X-Ray 04/04/23 18:05 IMPRESSION: Chronic interstitial fibrotic lung changes, [id number]-tukh-left, as noted with prior exam. No acute findings, otherwise. Chest/Abdomen/Pelvis CT 04/04/23 19:29 IMPRESSION: New areas of parenchymal abnormality likely representing pneumonia in right lung. Underlying severe pulmonary fibrosis as well as underlying emphysema noted. Additional details as above. IMPRESSION: No acute findings. Head CT 04/04/23 19:29 IMPRESSION: Stable appearance with prior exam January 22, 2023 as noted above. No acute intracranial abnormality. Laboratory Results WBC 21.2 10^3/uL (4.0-10.0) H 04/04/23 18:00 RBC 4.15 10^6/uL (4.1-5.3) 04/04/23 18:00 Hgb 12.4 g/dL (11.5-15.3) 04/04/23 18:00 Hct 38.4 % (37.0-47.0) 04/04/23 18:00 MCV 92.5 fl (81-99) 04/04/23 18:00 MCH 29.9 pg (28.0-34.0) 04/04/23 18:00 MCHC 32.3 g/dL (30.0-36.0) 04/04/23 18:00 RDW 15.1 % (12.1-15.1) 04/04/23 18:00 Plt Count 456 10^3/cmm (130-400) H 04/04/23 18:00 MPV 9.4 fL (7.4-10.4) 04/04/23 18:00 Neut % (Auto) 72.4 % 04/04/23 18:00 Lymph % (Auto) 21.5 % 04/04/23 18:00 Grady % (Auto) 4.9 % 04/04/23 18:00 Eos % (Auto) 0.4 % 04/04/23 18:00 Baso % (Auto) 0.3 % 04/04/23 18:00 Neut # (Auto) 15.36 10^3/uL (1.8-7.7) H 04/04/23 18:00 Lymph # (Auto) 4.6 10^3/uL (0.8-4.8) 04/04/23 18:00 Grady # (Auto) 1.0 10^3/uL (0.2-0.9) H 04/04/23 18:00 Eos # (Auto) 0.1 10^3/uL (0.0-0.8) 04/04/23 18:00 Baso # (Auto) 0.1 10^3/uL (0.0-0.1) 04/04/23 18:00 Nucleated RBC % (auto) 0 % 04/04/23 18:00 Nucleated RBCs # 0.0 /100WBC 04/04/23 18:00 D-Dimer 6.10 ug/mIFEU (0-0.59) H 04/04/23 18:00 Specimen Type Arterial 04/04/23 13:29 Sample Site Radial, right 04/04/23 13:29 ABG pH 7.51 (7.35-7.45) H 04/04/23 13:29 ABG pCO2 33.6 mmHg (35-45) L 04/04/23 13:29 ABG pO2 76.3 mmHg (80.0-100.0) L 04/04/23 13:29 ABG HCO3 26.6 mmol/L (22-26) H 04/04/23 13:29 ABG Base Excess 3.5 mmol/L (-2.0-2.0) H 04/04/23 13:29 Alejo Test Pos 04/04/23 13:29 Hematocrit 27.1 % (37-47) L 04/04/23 13:29 O2 Delivery Device Nc 04/04/23 13:29 O2 Liters/Min 2.0 % 04/04/23 13:29 Traffic Assistant ID [place] 04/04/23 13:29 Sodium 130 mmol/L (136-145) L 04/04/23 18:00 Potassium 4.4 mmol/L (3.5-5.1) 04/04/23 18:00 Chloride 90 mmol/L (98-107) L 04/04/23 18:00 Carbon Dioxide 24 mmol/L (22-29) 04/04/23 18:00 Anion Gap 20.4 (5-19) H 04/04/23 18:00 BUN 36 mg/dL (8-23) H 04/04/23 18:00 Creatinine 1.2 mg/dL (0.5-0.9) H 04/04/23 18:00 GFR Calculation Not Reportable 04/04/23 18:00 Glucose 90 mg/dL (65-115) 04/04/23 18:00 POC Glucose 86 mg/dL (70-110) 04/04/23 18:44 Calculated Osmolality 278 mOsm/kg (285-295) L 04/04/23 18:00 Lactic Acid 1.9 mmol/L (0.5-2.2) 04/04/23 18:51 Calcium 10.4 mg/dL (8.5-10.5) 04/04/23 18:00 Total Bilirubin 0.6 mg/dL (0.15-1.2) 04/04/23 18:00 AST 25 U/L (0-32) 04/04/23 18:00 ALT 17 U/L (0-33) 04/04/23 18:00 Alkaline Phosphatase 81 U/L (35-105) 04/04/23 18:00 Troponin T Baseline 45 ng/L (0-10) H 04/04/23 18:00 Troponin T 120 Minute 38.98 ng/L (0-10) H 04/04/23 20:12 Delta Troponin T -6.02 ABS# (0-10) L 04/04/23 20:12 C-Reactive Protein 139.2 mg/L (0.0-4.9) H 04/04/23 18:00 Total Protein 8.7 g/dL (6.6-8.7) 04/04/23 18:00 Albumin 3.8 g/dL (3.5-5.2) 04/04/23 18:00 Globulin 4.9 g/dL (1.3-4.6) H 04/04/23 18:00 Procalcitonin 0.13 ng/mL (0-0.5) 04/04/23 20:12 Nasal Influ A H1 2009 PCR Not detected (NOT DETECT) 04/04/23 20:40 Adenovirus (PCR) Not detected (NOT DETECT) 04/04/23 20:40 C. pneumoniae DNA (PCR) Not detected (NOT DETECT) 04/04/23 20:40 Coronavirus 229E (PCR) Not detected (NOT DETECT) 04/04/23 20:40 Human Metapneumovir PCR Not detected (NOT DETECT) 04/04/23 20:40 Influenza A (H1) PCR Not detected (NOT DETECT) 04/04/23 20:40 Influenza A (H3) PCR Not detected (NOT DETECT) 04/04/23 20:40 Influenza Type A (PCR) Not detected (NOT DETECT) 04/04/23 20:40 Influenza Type B (PCR) Not detected (NOT DETECT) 04/04/23 20:40 M. pneumoniae (PCR) Not detected (NOT DETECT) 04/04/23 20:40 Parainfluenza 1 (PCR) Not detected (NOT DETECT) 04/04/23 20:40 Parainfluenza 2 (PCR) Not detected (NOT DETECT) 04/04/23 20:40 Parainfluenza 3 (PCR) Not detected (NOT DETECT) 04/04/23 20:40 Parainfluenza 4 (PCR) Not detected (NOT DETECT) 04/04/23 20:40 RSV Type A (PCR) Not detected (NOT DETECT) 04/04/23 20:40 RSV Type B (PCR) Not detected (NOT DETECT) 04/04/23 20:40 Entero/Rhino (PCR) Not detected (NOT DETECT) 04/04/23 20:40 SARS-CoV-2 (PCR) Not detected (NOT DETECT) 04/04/23 20:40 Critical Care Time Critical Care Time: Critical Care Time: Yes Total Critical Care Time: 35 Attestation: Due to a high probability of clinically significant, possibly life threatening deterioration, the patient required my highest level of attention and pr eparedness to intervene emergently and I personally spent this critical care time directly and personally managing the patient. This critical care time included obtaining a history; examining the patient; pulse oximetry; ordering and review of laboratory and imaging studies; arranging urgent treatment with development of a management plan; evaluation of patient's response to treatment; frequent reassessment; and, discussions with other providers as applicable. It was exclusive of separately billable procedures. Primary system involved is infectious disease Discharge Plan Discharge Patient Disposition: Admitted As Inpatient Admit Provider: Rachelle Chamorro Clinical Impression: Right lower lobe pneumonia, Sepsis Condition: Stable Discharge Diet: Cardiac Discharge Activity: Resume usual activity and Increase activity as tolerated Coding Level of Care Code ED Entry Level Buyer for Keke Alvarez
--- NOTE | 2023-04-04 18:05 | ECG_ITS ---
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 Measurements Intervals [place] Rate: 111 P: 66 ND: 190 QRS: -7 QRSD: 73 T: 51 QT: 290 QTc: 396 Interpretive Statements SINUS TACHYCARDIA WITH OCCASIONAL ECTOPIC PREMATURE COMPLEXES LOW QRS VOLTAGE [QRS DEFLECTION < 0.5/1.0 mV IN LIMB/CHEST LEADS] SEPTAL MYOCARDIAL INFARCTION , PROBABLY OLD [40+ ms Q WAVE IN V1/V2] Compared to ECG 02/21/2023 15:14:47 Myocardial infarct finding now present T-wave abnormality no longer present Possible ischemia no longer present Electronically Signed On 04-04-2023 19:05:11 CDT by Corrie Beard M.D. [id number]
--- NOTE | 2023-04-04 18:05 | XRR_ITS ---
PROCEDURE INFORMATION: Exam: XR Chest Exam date and time: 04/04/2023 6:15 PM Age: 82 years old Clinical indication: Pain; Chest pressure; Additional info: SOB, cough TECHNIQUE: Imaging protocol: Radiologic exam of the chest. Views: 1 view. COMPARISON: CT chest w con* [id number] 03/04/2023 4:17 PM FINDINGS: Tubes, catheters and devices: Overlying monitor leads. Lungs: Chronic interstitial fibrotic lung changes, [id number]-uqgc-left, as seen with prior exam. No interval new consolidation. Decreased inspiration noted. Pleural spaces: Unremarkable. No pleural effusion. No pneumothorax. Heart/Mediastinum: Unremarkable. No cardiomegaly. Bones/joints: Prior vertebroplasty T12. XR/XR chest 1V portable [id number] IMPRESSION: Chronic interstitial fibrotic lung changes, [id number]-[id number]-left, as noted with prior exam. No acute findings, otherwise.
[2023-04-04 18:16] LABS: Basophils # 0.1 10^3/uL (0.0-0.1); Basophils % 0.3 %; Eosinophils # 0.1 10^3/uL (0.0-0.8); Eosinophils % 0.4 %; Hematocrit 38.4 % (37.0-47.0); Hemoglobin 12.4 g/dL (11.5-15.3); Lymphocytes # 4.6 10^3/uL (0.8-4.8); Lymphocytes % 21.5 %; Mean Corpuscular HGB Conc 32.3 g/dL (30.0-36.0); Mean Corpuscular Hemoglobin 29.9 pg (28.0-34.0); Mean Corpuscular Volume 92.5 fl (81-99); Mean Platelet Volume 9.4 fL (7.4-10.4); Monocytes % 4.9 %; Neutrophils # 15.36 10^3/uL (1.8-7.7); Neutrophils % 72.4 %; Nucleated Red Blood Cells % 0 %; Platelet Count 456 10^3/cmm (130-400); Red Blood Count 4.15 10^6/uL (4.1-5.3); Red Cell Distribution Width 15.1 % (12.1-15.1); White Blood Count 21.2 10^3/uL (4.0-10.0)
[2023-04-04] MEDS: acetaminophen 1,000 MG/100 ML PIGGYBACK 400 MG IV (18:25)
[2023-04-04 18:36] LABS: Troponin(5th) Baseline 45 ng/L (0-10)
[2023-04-04 18:40] LABS: ABG PCO2 33.6 mmHg (35-45); ABG PH Result 7.51 (7.35-7.45); Arterial Blood Gas Hematocrit 27.1 % (37-47); Base Excess ABG 3.5 mmol/L (-2.0-2.0); Blood Gas Allen Test Pos; Blood Gas Operator Identificat WALCI; Blood Gas Sample Site Radial, right; Blood Gas Sample Type Arterial; HCO3 ABG 26.6 mmol/L (22-26); Oxygen Device NC; PO2 ABG 76.3 mmHg (80.0-100.0)
[2023-04-04 18:42] LABS: Procalcitonin 0.16 ng/mL (0-0.5)
[2023-04-04] MEDS: ipratropium-albuterol 3 mL Neb INHALATION (18:46)
[2023-04-04 18:48] LABS: Glucose Point of Care 86 mg/dL (70-110)
[2023-04-04 18:53] LABS: Alanine Aminotransferase 17 U/L (0-33); Albumin Level 3.8 g/dL (3.5-5.2); Alkaline Phosphatase 81 U/L (35-105); Anion Gap 20.4 (5-19); Aspartate Amino Transferase 25 U/L (0-32); Blood Urea Nitrogen 36 mg/dL (8-23); C Reactive Protein 139.2 mg/L (0.0-4.9); Calcium 10.4 mg/dL (8.5-10.5); Carbon Dioxide 24 mmol/L (22-29); Chloride 90 mmol/L (98-107); Globulin 4.9 g/dL (1.3-4.6); Glucose 90 mg/dL (65-115); Osmolality Calculated 278 mOsm/kg (285-295); Potassium 4.4 mmol/L (3.5-5.1); Sodium 130 mmol/L (136-145); Total Bilirubin 0.6 mg/dL (0.15-1.2); Total Protein 8.7 g/dL (6.6-8.7)
[2023-04-04 19:16] LABS: Lactic Sepsis W/Reflex 1.9 mmol/L (0.5-2.2)
[2023-04-04] MEDS: cefepime 2,000 MG in sodium chloride 0.9% (plus) 50 ML 100 MG IV (19:28)
--- NOTE | 2023-04-04 19:29 | CTR_ITS ---
PROCEDURE INFORMATION: Exam: CT Head Without Contrast Exam date and time: 04/04/2023 8:21 PM Age: 82 years old Clinical indication: Altered mental status/memory loss; Additional info: AMS TECHNIQUE: Imaging protocol: Computed tomography of the head without contrast. Radiation optimization: All CT scans at this facility use at least one of these dose optimization techniques: automated exposure control; mA and/or kV adjustment per patient size (includes targeted exams where dose is matched to clinical indication); or iterative reconstruction. REPORTING DATA: Count of CT and Cardiac NM exams in prior 12 months: This patient has received 5 known CTs and 0 known cardiac nuclear medicine studies in the 12 months prior to the current study. COMPARISON: CT head wo con* [id number] 01/22/2023 2:22 PM RADIATION DOSE METRICS: Total DLP (mGy-cm): 1015.81 FINDINGS: Brain: Atrophic or involutional change indicates volume loss. Periventricular low-density or chronic small-vessel disease change. Findings are unchanged with prior exam. No findings to indicate regional or territorial ischemic infarct. No intracranial hemorrhage or hematoma is seen. No mass effect or shift of midline structures. Intracranial vascular calcification at base of the brain. Cerebral ventricles: Ventriculomegaly with atrophic change or volume loss, unchanged from prior exam. Paranasal sinuses: Visualized sinuses are unremarkable. No fluid levels. Mastoid air cells: Visualized mastoid air cells are well aerated. Bones/joints: Bone windows of the skull show no acute skull abnormality. Soft tissues: Unremarkable. CT/CT head wo con* [id number] IMPRESSION: Stable appearance with prior exam January 22, 2023 as noted above. No acute intracranial abnormality.
--- NOTE | 2023-04-04 19:29 | CTR_ITS ---
PROCEDURE INFORMATION: Exam: CT Chest With Contrast; Diagnostic Exam date and time: 04/04/2023 8:23 PM Age: 82 years old Clinical indication: Other: Sepsis; Additional info: Sepsis, ? source TECHNIQUE: Imaging protocol: Diagnostic computed tomography of the chest with contrast. Radiation optimization: All CT scans at this facility use at least one of these dose optimization techniques: automated exposure control; mA and/or kV adjustment per patient size (includes targeted exams where dose is matched to clinical indication); or iterative reconstruction. Contrast material: OMNI 350; Contrast volume: 60 ml; Contrast route: INTRAVENOUS (IV); REPORTING DATA: Count of CT and Cardiac NM exams in prior 12 months: This patient has received 5 known CTs and 0 known cardiac nuclear medicine studies in the 12 months prior to the current study. COMPARISON: CT chest w con* [id number] 03/04/2023 4:17 PM RADIATION DOSE METRICS: Total DLP (mGy-cm): 203.8 FINDINGS: Lungs: Severe pulmonary fibrosis noted with underlying emphysema. New areas of consolidated parenchymal opacification are noted in the superior segment of right lower lobe likely representing pneumonia. Smaller patch of parenchymal opacity that appears new in the posterolateral right upper lobe also is likely infectious/inflammatory . Bronchiectasis also noted. Pleural spaces: Unremarkable. No pneumothorax. No pleural effusion. Heart: Unremarkable. No cardiomegaly. No pericardial effusion. Coronary arteries: Dense coronary arterial calcifications are noted. Lymph nodes: Unremarkable. No enlarged lymph nodes. Vasculature: Aberrant right subclavian artery. Bones/joints: Vertebroplasty findings at T12. Nondisplaced simple fractures with early healing at anterior left ribs 8 and 9. Soft tissues: Unremarkable. PROCEDURE INFORMATION: Exam: CT Abdomen And Pelvis With Contrast Exam date and time: 04/04/2023 8:23 PM Age: 82 years old Clinical indication: Other: Sepsis; Additional info: Sepsis, ? source TECHNIQUE: Imaging protocol: Computed tomography of the abdomen and pelvis with contrast. Radiation optimization: All CT scans at this facility use at least one of these dose optimization techniques: automated exposure control; mA and/or kV adjustment per patient size (includes targeted exams where dose is matched to clinical indication); or iterative reconstruction. Contrast material: OMNI 350; Contrast volume: 60 ml; Contrast route: INTRAVENOUS (IV); REPORTING DATA: Count of CT and Cardiac NM exams in prior 12 months: This patient has received 5 known CTs and 0 known cardiac nuclear medicine studies in the 12 months prior to the current study. COMPARISON: CT chest w con* [id number] 03/04/2023 4:17 PM RADIATION DOSE METRICS: Total DLP (mGy-cm): 285.9 FINDINGS: Liver: Normal. No mass. Gallbladder and bile ducts: Cholecystectomy. Stable prominence of bile ducts can represent a normal finding in this setting especially if there are no clinical or laboratory findings to suggest obstructive process. Pancreas: Normal. No ductal dilation. Spleen: Spleen shows calcified granulomatous change. Normal size. Adrenal glands: Normal. No mass. Kidneys and ureters: Normal. No hydronephrosis. Stomach and bowel: Colonic diverticula noted. No evident pericolic inflammatory change. No findings of abnormal bowel distention. Appendix: No evidence of appendicitis. Intraperitoneal space: Unremarkable. No free air. No significant fluid collection. Vasculature: Vascular calcifications are noted. No abdominal aortic aneurysm. Lymph nodes: Unremarkable. No enlarged lymph nodes. Urinary bladder: Unremarkable as visualized. Reproductive: Unremarkable as visualized. Bones/joints: No acute fracture. Soft tissues: Unremarkable. CT/CT chest abdpel w/*[id number] IMPRESSION: New areas of parenchymal abnormality likely representing pneumonia in right lung. Underlying severe pulmonary fibrosis as well as underlying emphysema noted. Additional details as above. IMPRESSION: No acute findings.
--- NOTE | 2023-04-04 20:05 | ECG_ITS ---
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 Measurements Intervals [place] Rate: 93 P: 64 ID: [id number] QRS: 24 QRSD: 81 T: 49 QT: 333 QTc: 414 Interpretive Statements SINUS RHYTHM WITH OCCASIONAL VENTRICULAR PREMATURE COMPLEXES LOW QRS VOLTAGE [QRS DEFLECTION < 0.5/1.0 mV IN LIMB/CHEST LEADS] SEPTAL MYOCARDIAL INFARCTION , PROBABLY OLD [40+ ms Q WAVE IN V1/V2] Compared to ECG 04/04/2023 18:54:23 Ventricular premature complex(es) now present Sinus tachycardia no longer present Myocardial infarct finding still present Electronically Signed On 04-05-2023 8:00:03 CDT by Juan Dugan M.D. [id number]
[2023-04-04] MEDS: lactated ringers 500 ML 999 ML IV (20:12)
[2023-04-04] MEDS: iohexol 350 mg/mL 500 mL Btl (per mL) IV (20:23)
[2023-04-04 20:46] LABS: Troponin 5 2HR 38.98 ng/L (0-10)
[2023-04-04 20:54] LABS: Troponin 5 2HR Delta -6.02 ABS# (0-10)
--- NOTE | 2023-04-04 22:17 | P.HP_ITS ---
Providers/Chief Complaint Primary Care Provider: Eber Albarran MD Chief Complaint: sepsis History of Present Illness Karen Hernandes is a 82 year old female with COPD, chronic hypoxia, pulmonary fibrosis, was recently discharged from the hospital after adequate management of non-STEMI left heart cath showed multiple high-grade complex lesions, decision was made to manage her medically, patient is DNI/DNI, patient has had multiple right-sided pneumonia, recent CTA did not show PE, patient presented today for productive cough and shortness of breath. Patient stating that she called her daughter today because of her worsening of cough and shortness of breath. At baseline she requires 2 to 3 L of oxygen, she is febrile in the ER, has right lower lobe pneumonia with significant hypoxia, patient is stating that her blood pressure normally stays in the 90s and never touches 100s she does have significant leukocytosis with high D-dimer, creatinine 1.2 We will request CTA chest tomorrow as she has already received contrast today her procalcitonin is unremarkable, Review of Systems Const: Reports: fever(s) and chills Eyes: Denies: change in vision ENMT: Denies: throat pain Card: Denies: chest pain Resp: Reports: dyspnea GI: Denies: abdominal pain : Denies: flank pain Musc: Denies: neck pain Skin/Breast: Denies: rash Neuro: Denies: headache(s) Medications/Allergies Home Medications Medication Instructions Recorded Confirmed Last Taken Type albuterol sulfate 90 mcg/actuation 2 puff inhalation Q4H PRN 04/17/22 02/21/23 Unknown History aerosol inhaler Shortness Of Breath acetaminophen 500 mg tablet 500 mg PO Q6H PRN Pain 01/22/23 02/21/23 Unknown History cetirizine 10 mg tablet 10 mg PO BEDTIME 01/22/23 02/21/23 02/20/23 History lorazepam 1 mg tablet 0.5 - 1 mg PO DAILY PRN Anxiety 01/22/23 02/21/23 Unknown History montelukast 10 mg tablet 10 mg PO DAILY PRN Allergy Symptoms 01/22/23 02/21/23 Unknown History fluticasone fur. 100 mcg-umeclid 1 inh inhalation DAILY #60 ea 01/29/23 02/21/23 02/20/23 Rx 62.5 mcg-vilant 25 mcg inhalat.powder (Trelegy Ellipta) aspirin 81 mg tablet,delayed 81 mg PO DAILY #30 tabs 01/30/23 02/21/23 02/21/23 Rx release atorvastatin 40 mg tablet 40 mg PO BEDTIME 30 days #30 tabs 01/30/23 02/21/23 02/20/23 Rx clopidogrel 75 mg tablet 75 mg PO DAILY 30 days #30 tabs 01/30/23 02/21/23 02/21/23 Rx losartan 50 mg tablet 25 mg PO DAILY 30 days #30 tabs 01/30/23 02/21/23 02/21/23 Rx prednisone 10 mg tablet 10 mg PO DIRECTED #60 tabs 01/30/23 02/21/23 02/21/23 Rx 10 mg spironolactone 25 mg tablet 25 mg PO DAILY 30 days #30 tabs 01/30/23 02/21/23 02/21/23 Rx fluticasone propionate 50 1 spray intranasal DAILY PRN Nasal 02/06/23 02/21/23 Unknown History mcg/actuation nasal Congestion spray,suspension (Children's Flonase Allergy Relief) hydrocodone 5 mg-acetaminophen 325 1 tab PO Q8H PRN Pain 02/06/23 02/21/23 Unknown History mg tablet tramadol 50 mg tablet 50 mg PO Q8H PRN Pain 02/21/23 02/21/23 Unknown History metoprolol tartrate 25 mg tablet 25 mg PO BID@0900,2100 #180 tabs 02/28/23 Unknown Rx furosemide 20 mg tablet See Rx Instructions .Route 03/18/23 Unknown Rx .COMPLEX #60 tabs Allergies Allergy/AdvReac Type Severity Reaction Status Date / Time meperidine [From Demerol] Allergy ADR-Halluci Verified 02/27/23 15:03 nating PFS Acute PFSH: Medical History Allergic rhinitis COVID Pneumonia Surgical History H/O section History of abdominal surgery Family History Father Myocardial infarction Family/Other Breast cancer Social History Smoking and tobacco status: former smoker Quit status (tobacco): has quit using tobacco Year quit tobacco: 50-60 years a go Alcohol intake: never Substance/Drug Use: never Vitals/I&O/Wt Last Vital Signs Temp 101.9 F H 04/04/23 17:57 Pulse 80 04/04/23 22:00 Resp 13 04/04/23 21:39 BP 86/51 04/04/23 22:00 Pulse Ox 97 04/04/23 22:00 O2 Del Method Nasal Cannula 04/04/23 21:30 O2 Flow Rate 2 04/04/23 21:30 04/04/23 04/04/23 04/04/23 06:59 14:59 22:59 Intake Total 1401.9 / 1401.9 Balance 1401.9 / 1401.9 Weight last 48 hrs Weight 41.73 kg Physical Exam Narrative: Patient looks dehydrated Febrile Awake and alert GCS 15 Rhonchi in right lung base Abdomen soft Lower extremity no edema Currently on 2 L Pleasant and cooperative Appropriate mood and affect Data 04/04/23 18:00 04/04/23 18:00 Micro: Microbiology 04/04/23 18:51 Blood Culture - Preliminary Blood SPECIMEN COLLECTED 04/04/23 18:43 Blood Culture - Preliminary Blood SPECIMEN COLLECTED A&P Assessment and plan (1) Sepsis: (2) Dysphagia: (3) Pulmonary hypertension: (4) Ischemic cardiomyopathy: (5) Severe tricuspid regurgitation: (6) Traumatic compression fracture of T12 thoracic vertebra: (7) Hyponatremia: (8) Right lower lobe pneumonia: Plan Recurrent right lower lobe pneumonia Sepsis criteria met with leukocytosis, fever, source is pneumonia, endorgan damage with MARLO creatinine 1.2 lactic acid is normal Currently request CTA chest in the morning I would not repeat contra study as she has already received contrast with CT abdomen pelvis It is showing right lower lobe pneumonia Started on antibiotics DuoNeb Patient is not wheezing Chronic hypoxia without acute exacerbation currently on 2 L Patient is febrile, COVID PCR negative Goals of care discussed with the patient: She is DNI/DNI Chronic T12 compression fracture requires opioids She does have underlying pulmonary fibrosis with COPD Ischemic cardiomyopathy recent non-STEMI cardiology recommended to manage medically Attestations Medical Necessity Statement*: More than 2 midnights anticipated Diagnoses Sepsis A41.9 Dysphagia R13.10 Pulmonary hypertension I27.20 Ischemic cardiomyopathy I25.5 Severe tricuspid regurgitation I07.1 Traumatic compression fracture of T12 thoracic vertebra S22.080A Hyponatremia E87.1 Right lower lobe pneumonia J18.9
[2023-04-04 23:08] LABS: Procalcitonin 0.13 ng/mL (0-0.5)
[2023-04-04 23:33] LABS: Adenovirus Not Detected (NOT DETECT); Chlamydia Pneumoniae Not Detected (NOT DETECT); Coronavirus 229E,HKU1,NL63,OC4 Not Detected (NOT DETECT); Human Metapneumovirus Not Detected (NOT DETECT); Human Rhinovirus/Enterovirus Not Detected (NOT DETECT); Influenza A Not Detected (NOT DETECT); Influenza A H1 Not Detected (NOT DETECT); Influenza A H1-2009 Not Detected (NOT DETECT); Influenza A H3 Not Detected (NOT DETECT); Influenza B Not Detected (NOT DETECT); Mycoplasma Pneumoniae Not Detected (NOT DETECT); Parainfluenza Virus Type 1 Not Detected (NOT DETECT); Parainfluenza Virus Type 2 Not Detected (NOT DETECT); Parainfluenza Virus Type 3 Not Detected (NOT DETECT); Parainfluenza Virus Type 4 Not Detected (NOT DETECT); Respiratory Syncytial Virus A Not Detected (NOT DETECT); Respiratory Syncytial Virus B Not Detected (NOT DETECT); SARS-COV-2 Not Detected (NOT DETECT)
[2023-04-05] VITALS (44 sets, daily range): BP systolic 74–127; BP diastolic 38–79; PULSE 70–163; RESP 16–36; TEMP 36.7–37.4; O2SAT 85–100; BMI 17.7
--- NOTE | 2023-04-05 00:05 | ECG_ITS ---
[facility] Test Date: 2023-04-05 Pat Name: Karen Hernandes Department: Room: ICU02 Gender: Female [employer]: : 1940 Requested By: Cedrick Crawley Order Number: [id number] Alexia MD: Juan Dugan M.D. Measurements Intervals [place] Rate: 74 P: 67 NV: 191 QRS: 35 QRSD: 81 T: 48 QT: 363 QTc: 403 Interpretive Statements SINUS RHYTHM WITH OCCASIONAL VENTRICULAR PREMATURE COMPLEXES LOW QRS VOLTAGE [QRS DEFLECTION < 0.5/1.0 mV IN LIMB/CHEST LEADS] SEPTAL MYOCARDIAL INFARCTION , PROBABLY OLD [40+ ms Q WAVE IN V1/V2] Compared to ECG 04/04/2023 20:42:51 No significant changes Electronically Signed On 04-05-2023 7:59:24 CDT by Juan Dugan M.D. [email or web address]
[2023-04-05] MEDS: sodium chloride 0.9% 1,000 ML 75 ML IV (02:20)
[2023-04-05] MEDS: piperacillin-tazobactam 3.375 GM in sodium chloride 0.9% (plus) 50 ML IV ×3 (02:20→17:38)
[2023-04-05] MEDS: vancomycin 500 MG in sodium chloride 0.9% (plus) 100 ML 200 MG IV (02:20)
[2023-04-05] MEDS: heparin 5,000 unit/mL INJ 1 mL 5000 UNIT SUBCUT ×2 (02:21→13:08)
[2023-04-05 03:33] LABS: Basophils # 0.1 10^3/uL (0.0-0.1); Basophils % 0.8 %; Eosinophils # 0.1 10^3/uL (0.0-0.8); Eosinophils % 0.7 %; Hematocrit 34.5 % (37.0-47.0); Hemoglobin 11.2 g/dL (11.5-15.3); Lymphocytes # 4.4 10^3/uL (0.8-4.8); Lymphocytes % 27.6 %; Mean Corpuscular HGB Conc 32.5 g/dL (30.0-36.0); Mean Corpuscular Hemoglobin 30.9 pg (28.0-34.0); Mean Corpuscular Volume 95.3 fl (81-99); Mean Platelet Volume 9.3 fL (7.4-10.4); Monocytes # 0.8 10^3/uL (0.2-0.9); Neutrophils # 10.36 10^3/uL (1.8-7.7); Neutrophils % 65.4 %; Nucleated Red Blood Cells % 0 %; Platelet Count 412 10^3/cmm (130-400); Red Blood Count 3.62 10^6/uL (4.1-5.3); Red Cell Distribution Width 15.1 % (12.1-15.1); White Blood Count 15.8 10^3/uL (4.0-10.0)
[2023-04-05 03:36] LABS: Add Urine Microscopic? NO; Charge for UA Resulting for Rev
[2023-04-05 03:43] LABS: Bilirubin Urine Neg (Negative); Blood Urine Neg (Negative); Glucose Urine UA Norm (Normal); Ketones Urine Negative (Negative); Leukocyte Esterase Urine Negative (Negative); Nitrate Urine Negative (Negative); Protein Urine Neg (Negative); Specific Gravity, Urine 1.005 (1.005-1.030); Urine Appearance Clear (CLEAR); Urine Color Colorless (Yellow); Urobilinogen Urine Neg (Negative); pH Urine 6.5 (5-7)
[2023-04-05 03:55] LABS: Blood Urea Nitrogen 30 mg/dL (8-23); C Reactive Protein 140.1 mg/L (0.0-4.9); Calcium 10.1 mg/dL (8.5-10.5); Carbon Dioxide 23 mmol/L (22-29); Chloride 97 mmol/L (98-107); Glucose 88 mg/dL (65-115); Magnesium 1.8 mg/dL (1.7-2.3); Osmolality Calculated 280 mOsm/kg (285-295); Phosphorus 3.3 mg/dL (2.5-4.5); Sodium 132 mmol/L (136-145)
[2023-04-05 04:02] LABS: Anion Gap 16.5 (5-19); Potassium 4.5 mmol/L (3.5-5.1)
[2023-04-05 04:25] LABS: Thyroid Stimulating Hormone 2.86 uIU/mL (0.27-4.20); Vitamin B12 1199 pg/mL (232-1245)
[2023-04-05 05:07] LABS: Troponin 5 6HR 38.89 ng/L (0-10)
[2023-04-05 05:12] LABS: Troponin 5 6HR Delta -6.11 ng/L (0-12)
[2023-04-05] MEDS: clopidogrel 75 mg Tablet PO (09:20)
[2023-04-05] MEDS: aspirin 81 mg EC Tablet PO (09:21)
--- NOTE | 2023-04-05 11:38 | PC.PHAR ---
Addendum entered by Jaycee Martinez 04/05/23 14:23: pts daughter brody verified all pts medications-states the pt has a trelegy ellipta but states she only uses prn states the pt states it taste bad- Addendum entered by Jaycee Martinez 04/05/23 14:04: called brody again still no answer Addendum entered by Jaycee Martinez 04/05/23 12:57: CALLED BRODY AGAIN-NO ANSWER LEFT ANOTHER MESSAGE Original Note: pt states her daughter brody [phone] takes care of her medications-called brody and left message
[2023-04-05] MEDS: HYDROcodone-acetaminophen 5-325 mg Tablet 1 TAB PO (13:08)
--- NOTE | 2023-04-05 16:32 | P.PN_ITS ---
Subjective Subjective: Patient was seen and examined this morning, noted Tmax since admission:101.9, currently she has denied significant shortness of breath, she was complaining of coughing at home.Denied any significant sputum production. Medications: Medication Review Details: Generic Name Dose Route Start Last Admin Trade Name Charli PRN Reason Stop Dose Admin Hydrocodone Bitart /Acetaminophen 1 tab 04/05/23 01:44 04/05/23 13:08 Hydrocodone-Acet aminophen 5-325 Mg Tablet PO 1 tab Q8H PRN Administration Pain Aspirin 81 mg 04/05/23 09:00 04/05/23 09:21 Aspirin 81 Mg Ec Tablet PO 81 mg DAILY BENITA Administration Clopidogrel Bisulf ate 75 mg 04/05/23 09:00 04/05/23 09:20 Clopidogrel 75 M g Tablet PO 75 mg DAILY BENITA Administration Heparin Sodium (Po rcine) 5,000 unit 04/05/23 01:44 04/05/23 13:08 Heparin 5,000 Un it/Ml Inj 1 Ml SUBCUT 5,000 unit Q12H BENITA Administration Piperacillin Sod/T azobactam 50 mls @ 12.5 mls /hr 04/05/23 02:00 04/05/23 13:31 Sod 3.375 gm/ So dium Chloride IV Infused Q8H BENITA Infusion Vancomycin HCl 500 mg/ Sodium 100 mls @ 200 mls /hr 04/05/23 02:00 04/05/23 03:32 Chloride IV Infused Q36H BENITA Infusion Norepinephrine Bit artrate 4 mg 254 mls @ 0 mls/h r 04/05/23 15:45 04/05/23 16:25 / Dextrose IV 6 mcg/min .Q0M BENITA 22.86 mls/hr Titration Protocol Per Protocol Senna/Docusate Sod ium 1 tab 04/05/23 09:00 04/05/23 09:22 Sennosides-Docus ate Tablet PO Not Given DAILY BENITA Vitals/I&O/Wt Last Vital Signs Temp 98.1 F 04/05/23 15:30 Pulse 95 04/05/23 15:30 Resp 25 H 04/05/23 15:30 BP 74/38 04/05/23 15:30 Pulse Ox 94 04/05/23 15:30 O2 Del Method Nasal Cannula 04/05/23 15:30 O2 Flow Rate 2 04/05/23 09:27 04/05/23 04/05/23 04/05/23 06:59 14:59 22:59 Intake Total 150 / 2051.9 410 / 410 965.675 / 1375.675 Output Total 950 / 950 250 / 250 Balance -800 / 1101.9 160 / 160 965.675 / 1125.675 Weight last 48 hrs Weight 44 kg Weight 41.73 kg Physical Exam HENMT: COMMON NORMALS: normocephalic and atraumatic HEAD & SCALP: normocephalic and atraumatic Resp: OTHER: Fine inspiratory velcro crackles present possibly secondary to pulmonary fibrosis Cardio: COMMON NORMALS: regular rate, regular rhythm, S1 normal heart sound present, S2 normal heart sound present, No gallops present (Cardio), No murmurs present (Cardio), No rub (Cardio) and Peripheral pulses 2+ throughout RATE: regular rate RHYTHM: regular rhythm HEART SOUNDS: S1 normal heart sound present and S2 normal heart sound present PERIPHERAL PULSES: Peripheral pulses 2+ throughout GI: COMMON NORMALS: Normal to inspection, nondistended, normoactive bowel sounds present, Soft to palpation, non-tender, No hepatosplenomegaly present and no masses AUSCULTATION: Yes normoactive bowel sounds PALPATION: Yes Soft to palpation and Yes No hepatosplenomegaly present RECTAL EXAM: deferred Extremity: COMMON NORMALS: no clubbing, cyanosis or edema and no pedal edema Data 04/05/23 02:40 04/05/23 02:40 Micro: Microbiology 04/05/23 03:05 MRSA Culture - Final Nose 04/05/23 02:41 Legionella Urinary Antigen - Final Urine,Clean Catch Bacterial Antigens - Final 04/04/23 18:51 Blood Culture - Preliminary Blood SPECIMEN COLLECTED 04/04/23 18:43 Blood Culture - Preliminary Blood SPECIMEN COLLECTED A&P Assessment and plan (1) Sepsis: (2) Dysphagia: (3) Pulmonary hypertension: (4) Ischemic cardiomyopathy: (5) Severe tricuspid regurgitation: (6) Traumatic compression fracture of T12 thoracic vertebra: (7) Hyponatremia: (8) Right lower lobe pneumonia: Plan 82-year-old female with past medical history of, significant pulmonary fibrosis, coronary artery disease, recent NSTEMI, multiple high-grade complex lesions, decided to be managed medically, COPD, on 2 L home oxygen ,came in today with chief complaint of worsening cough associated with possibly scant sputum production, she was found to be febrile on admission, currently she is being managed for. Assessment: Septic shock secondary to pneumonia: Currently patient meets criteria for septic shock, she has been adequately volume resuscitate status, at 30 mls per KG, and still is hypotensive, requiring the need for vasopressor support, other sepsis criteria includes, elevated white count, fever, pneumonia, mild hyponatremia, possible developing mild MARLO, elevated troponin. CT chest abdomen pelvis: Is showing New areas of consolidated parenchymal opacification are noted in the superior segment of right lower lobe likely representing pneumonia. Smaller patch of parenchymal opacity that appears new in the posterolateral right upper lobe also is likely infectious/inflammatory. CT head without contrast no acute intracranial pathology Urinalysis is clean Respiratory viral panel negative Blood culture negative so far Sputum Gram stain culture Urine Legionella antigen bacterial ag panel negative MRSA PCR negative Currently empirically on broad-spectrum antibiotic vancomycin and Zosyn. History of coronary artery disease: Continue aspirin Plavix History of COPD: Continue DuoNebs Supplemental oxygen as needed Chronic T12 compression fracture requires opioids CODE STATUS :AND DVT prophylaxis on subcu heparin Attestations Medical Necessity Statement*: Needs to be in hospital management of sepsis. Coding Level of Care Code Acute Code for [facility] Fwd Diagnoses Sepsis A41.9 Dysphagia R13.10 Pulmonary hypertension I27.20 Ischemic cardiomyopathy I25.5 Severe tricuspid regurgitation I07.1 Traumatic compression fracture of T12 thoracic vertebra S22.080A Hyponatremia E87.1 Right lower lobe pneumonia J18.9
[2023-04-06] VITALS (35 sets, daily range): BP systolic 85–138; BP diastolic 55–98; PULSE 64–131; RESP 13–36; O2SAT 59–100
[2023-04-06] MEDS: heparin 5,000 unit/mL INJ 1 mL 5000 UNIT SUBCUT ×2 (02:50→13:38)
[2023-04-06] MEDS: piperacillin-tazobactam 3.375 GM in sodium chloride 0.9% (plus) 50 ML IV ×3 (02:55→18:00)
[2023-04-06] MEDS: HYDROcodone-acetaminophen 5-325 mg Tablet 1 TAB PO (04:56)
[2023-04-06 07:21] LABS: Glucose Point of Care 126 mg/dL (70-110)
[2023-04-06] MEDS: sennosides-docusate Tablet 1 TAB PO (08:16)
[2023-04-06] MEDS: clopidogrel 75 mg Tablet PO (08:16)
[2023-04-06] MEDS: aspirin 81 mg EC Tablet PO (08:17)
[2023-04-06 11:44] LABS: Basophils # 0.1 10^3/uL (0.0-0.1); Basophils % 0.7 %; Eosinophils # 0.1 10^3/uL (0.0-0.8); Eosinophils % 0.9 %; Hematocrit 38.1 % (37.0-47.0); Hemoglobin 11.9 g/dL (11.5-15.3); Lymphocytes # 4.9 10^3/uL (0.8-4.8); Mean Corpuscular HGB Conc 31.2 g/dL (30.0-36.0); Mean Corpuscular Hemoglobin 30.1 pg (28.0-34.0); Mean Corpuscular Volume 96.2 fl (81-99); Mean Platelet Volume 9.1 fL (7.4-10.4); Monocytes # 0.9 10^3/uL (0.2-0.9); Monocytes % 6.3 %; Neutrophils # 7.94 10^3/uL (1.8-7.7); Neutrophils % 56.7 %; Nucleated Red Blood Cells % 0 %; Platelet Count 436 10^3/cmm (130-400); Red Blood Count 3.96 10^6/uL (4.1-5.3)
[2023-04-06 11:52] LABS: Glucose Point of Care 105 mg/dL (70-110)
[2023-04-06 12:03] LABS: Alanine Aminotransferase 14 U/L (0-33); Albumin Level 2.9 g/dL (3.5-5.2); Alkaline Phosphatase 72 U/L (35-105); Anion Gap 13.4 (5-19); Aspartate Amino Transferase 17 U/L (0-32); Blood Urea Nitrogen 14 mg/dL (8-23); Calcium 9.7 mg/dL (8.5-10.5); Carbon Dioxide 26 mmol/L (22-29); Chloride 95 mmol/L (98-107); Globulin 4.4 g/dL (1.3-4.6); Glucose 105 mg/dL (65-115); Osmolality Calculated 273 mOsm/kg (285-295); Potassium 3.4 mmol/L (3.5-5.1); Sodium 131 mmol/L (136-145); Total Bilirubin 0.5 mg/dL (0.15-1.2); Total Protein 7.3 g/dL (6.6-8.7)
[2023-04-06] MEDS: acetaminophen 500 mg Tablet PO (14:25)
[2023-04-06] MEDS: vancomycin 500 MG in sodium chloride 0.9% (plus) 100 ML 20 MG IV (14:46)
--- NOTE | 2023-04-06 15:09 | P.PN_ITS ---
Subjective Subjective: Patient was seen and examined this morning, coughing has improved, currently on Levophed attempt is being made to wean off. Medications: Medication Review Details: Generic Name Dose Route Start Last Admin Trade Name Charli PRN Reason Stop Dose Admin Hydrocodone Bitart /Acetaminophen 1 tab 04/05/23 01:44 04/05/23 13:08 Hydrocodone-Acet aminophen 5-325 Mg Tablet PO 1 tab Q8H PRN Administration Pain Aspirin 81 mg 04/05/23 09:00 04/05/23 09:21 Aspirin 81 Mg Ec Tablet PO 81 mg DAILY BENITA Administration Clopidogrel Bisulf ate 75 mg 04/05/23 09:00 04/05/23 09:20 Clopidogrel 75 M g Tablet PO 75 mg DAILY BENITA Administration Heparin Sodium (Po rcine) 5,000 unit 04/05/23 01:44 04/05/23 13:08 Heparin 5,000 Un it/Ml Inj 1 Ml SUBCUT 5,000 unit Q12H BENITA Administration Piperacillin Sod/T azobactam 50 mls @ 12.5 mls /hr 04/05/23 02:00 04/05/23 13:31 Sod 3.375 gm/ So dium Chloride IV Infused Q8H BENITA Infusion Vancomycin HCl 500 mg/ Sodium 100 mls @ 200 mls /hr 04/05/23 02:00 04/05/23 03:32 Chloride IV Infused Q36H BENITA Infusion Norepinephrine Bit artrate 4 mg 254 mls @ 0 mls/h r 04/05/23 15:45 04/05/23 16:25 / Dextrose IV 6 mcg/min .Q0M BENITA 22.86 mls/hr Titration Protocol Per Protocol Senna/Docusate Sod ium 1 tab 04/05/23 09:00 04/05/23 09:22 Sennosides-Docus ate Tablet PO Not Given DAILY BENITA Vitals/I&O/Wt Last Vital Signs Temp 99.0 F 04/05/23 19:00 Pulse 69 04/06/23 15:05 Resp 24 H 04/06/23 14:00 BP 107/63 04/06/23 14:00 Pulse Ox 96 04/06/23 14:00 O2 Del Method Room Air 04/06/23 12:10 O2 Flow Rate 2 04/06/23 09:37 04/06/23 04/06/23 04/06/23 06:59 14:59 22:59 Intake Total 502.163 / 502.163 0.191 / 502.354 Output Total 700 / 700 Balance -197.837 / -197.837 0.191 / -197.646 Weight last 48 hrs Weight 44 kg Weight 41.73 kg Physical Exam HENMT: COMMON NORMALS: normocephalic and atraumatic HEAD & SCALP: normocephalic and atraumatic Resp: OTHER: Fine inspiratory velcro crackles present possibly secondary to pulmonary fibrosis Cardio: COMMON NORMALS: regular rate, regular rhythm, S1 normal heart sound present, S2 normal heart sound present, No gallops present (Cardio), No murmurs present (Cardio), No rub (Cardio) and Peripheral pulses 2+ throughout RATE: regular rate RHYTHM: regular rhythm HEART SOUNDS: S1 normal heart sound present and S2 normal heart sound present PERIPHERAL PULSES: Peripheral pulses 2+ throughout GI: COMMON NORMALS: Normal to inspection, nondistended, normoactive bowel sounds present, Soft to palpation, non-tender, No hepatosplenomegaly present and no masses AUSCULTATION: Yes normoactive bowel sounds PALPATION: Yes Soft to palpation and Yes No hepatosplenomegaly present RECTAL EXAM: deferred Extremity: COMMON NORMALS: no clubbing, cyanosis or edema and no pedal edema Data 04/06/23 11:33 04/06/23 11:33 Micro: Microbiology 04/04/23 18:51 Blood Culture - Preliminary Blood NEGATIVE TO DATE 04/04/23 18:43 Blood Culture - Preliminary Blood NEGATIVE TO DATE 04/05/23 03:05 MRSA Culture - Final Nose 04/05/23 02:41 Legionella Urinary Antigen - Final Urine,Clean Catch Bacterial Antigens - Final A&P Assessment and plan (1) Sepsis: (2) Dysphagia: (3) Pulmonary hypertension: (4) Ischemic cardiomyopathy: (5) Severe tricuspid regurgitation: (6) Traumatic compression fracture of T12 thoracic vertebra: (7) Hyponatremia: (8) Right lower lobe pneumonia: Plan 82-year-old female with past medical history of, significant pulmonary fibrosis, coronary artery disease, recent NSTEMI, multiple high-grade complex lesions, decided to be managed medically, COPD, on 2 L home oxygen ,came in today with chief complaint of worsening cough associated with possibly scant sputum pr oduction, she was found to be febrile on admission, currently she is being managed for. Assessment: Septic shock secondary to pneumonia: Currently patient meets criteria for septic shock, she has been adequately volume resuscitate status, at 30 mls per KG, and still is hypotensive, requiring the need for vasopressor support, other sepsis criteria includes, elevated white count, fever, pneumonia, mild hyponatremia, possible developing mild MARLO, elevated troponin. CT chest abdomen pelvis: Is showing New areas of consolidated parenchymal opacification are noted in the superior segment of right lower lobe likely representing pneumonia. Smaller patch of parenchymal opacity that appears new in the posterolateral right upper lobe also is likely infectious/inflammatory. CT head without contrast no acute intracranial pathology Urinalysis is clean Respiratory viral panel negative Blood culture negative so far Sputum Gram stain culture Urine Legionella antigen bacterial ag panel negative MRSA PCR negative Currently empirically on broad-spectrum antibiotic vancomycin and Zosyn. History of coronary artery disease: Continue aspirin Plavix History of COPD: Continue DuoNebs Supplemental oxygen as needed Chronic T12 compression fracture requires opioids CODE STATUS :AND DVT prophylaxis on subcu heparin Attestations Medical Necessity Statement*: In hospital for management of septic shock IV antibiotic. Coding Level of Care Code Acute Code for [facility] Fwd Diagnoses Sepsis A41.9 Dysphagia R13.10 Pulmonary hypertension I27.20 Ischemic cardiomyopathy I25.5 Severe tricuspid regurgitation I07.1 Traumatic compression fracture of T12 thoracic vertebra S22.080A Hyponatremia E87.1 Right lower lobe pneumonia J18.9
[2023-04-06 16:50] LABS: Glucose Point of Care 108 mg/dL (70-110)
[2023-04-07] VITALS (51 sets, daily range): BP systolic 74–139; BP diastolic 45–86; PULSE 70–128; RESP 15–35; TEMP 36.7–38.5; O2SAT 81–100
[2023-04-07] MEDS: acetaminophen 500 mg Tablet PO ×2 (00:34→12:12)
[2023-04-07] MEDS: piperacillin-tazobactam 3.375 GM in sodium chloride 0.9% (plus) 50 ML IV ×3 (02:07→18:06)
[2023-04-07] MEDS: heparin 5,000 unit/mL INJ 1 mL 5000 UNIT SUBCUT ×2 (02:08→13:28)
[2023-04-07 04:49] LABS: Basophils # 0.1 10^3/uL (0.0-0.1); Basophils % 0.7 %; Eosinophils # 0.1 10^3/uL (0.0-0.8); Eosinophils % 1.1 %; Hematocrit 29.3 % (37.0-47.0); Hemoglobin 9.2 g/dL (11.5-15.3); Lymphocytes # 3.1 10^3/uL (0.8-4.8); Lymphocytes % 25.7 %; Mean Corpuscular HGB Conc 31.4 g/dL (30.0-36.0); Mean Corpuscular Hemoglobin 29.8 pg (28.0-34.0); Mean Corpuscular Volume 94.8 fl (81-99); Mean Platelet Volume 9.7 fL (7.4-10.4); Monocytes # 0.8 10^3/uL (0.2-0.9); Monocytes % 6.2 %; Neutrophils # 8.02 10^3/uL (1.8-7.7); Neutrophils % 65.8 %; Nucleated Red Blood Cells % 0 %; Platelet Count 383 10^3/cmm (130-400); Red Blood Count 3.09 10^6/uL (4.1-5.3); Red Cell Distribution Width 15.1 % (12.1-15.1); White Blood Count 12.2 10^3/uL (4.0-10.0)
[2023-04-07 05:12] LABS: Alanine Aminotransferase 11 U/L (0-33); Albumin Level 2.5 g/dL (3.5-5.2); Alkaline Phosphatase 61 U/L (35-105); Anion Gap 11.7 (5-19); Aspartate Amino Transferase 17 U/L (0-32); Blood Urea Nitrogen 12 mg/dL (8-23); Calcium 9.2 mg/dL (8.5-10.5); Carbon Dioxide 25 mmol/L (22-29); Chloride 99 mmol/L (98-107); Globulin 3.9 g/dL (1.3-4.6); Glucose 92 mg/dL (65-115); Osmolality Calculated 273 mOsm/kg (285-295); Potassium 3.7 mmol/L (3.5-5.1); Sodium 132 mmol/L (136-145); Total Bilirubin 0.5 mg/dL (0.15-1.2); Total Protein 6.4 g/dL (6.6-8.7)
--- NOTE | 2023-04-07 08:19 | PC.NURSE ---
Patient and family at bedside displeased with staff for not allowing patient to use electric heating blanket. Patient and family educated on risk of fire and risk with oxygen use, also explained increase in temperature and contraindication of adding more heat. Family at bedside also educated on importance of notifying staff if IV pump is beeping so that a nurse can address it, as well as dangers of family silencing or possibly changing settings on pump. Patient and family educated confectionery laboratory manager light use and risks of ambulation/fall risk. All education to patient and family verbally provided and understanding of teachings verbalized back to this nurse.
[2023-04-07] MEDS: clopidogrel 75 mg Tablet PO (09:35)
[2023-04-07] MEDS: aspirin 81 mg EC Tablet PO (09:35)
[2023-04-07] MEDS: sennosides-docusate Tablet 1 TAB PO (09:35)
--- NOTE | 2023-04-07 11:49 | PC.SOCIAL ---
Imm update Imm updated with daughters at bedside. Copy of page 2 provided. Daughters verbalized understanding. Copy in chart initialed, dated and timed.
--- NOTE | 2023-04-07 14:43 | P.PN_ITS ---
Subjective Subjective: Patient was seen and examined this morning, she was complaining of feeling extremely cold, she also had fever last night with noted Tmax of: 101.3, cultures have remained negative so far. UA is clean. Medications: Medication Review Details: Generic Name Dose Route Start Last Admin Trade Name Charli PRN Reason Stop Dose Admin Acetaminophen 500 mg 04/05/23 01:44 04/07/23 12:12 Acetaminophen 50 0 Mg Tablet PO 500 mg Q4H PRN Administration fever Hydrocodone Bitart /Acetaminophen 1 tab 04/05/23 01:44 04/06/23 04:56 Hydrocodone-Acet aminophen 5-325 Mg Tablet PO 1 tab Q8H PRN Administration Pain Aspirin 81 mg 04/05/23 09:00 04/07/23 09:35 Aspirin 81 Mg Ec Tablet PO 81 mg DAILY BENITA Administration Clopidogrel Bisulf ate 75 mg 04/05/23 09:00 04/07/23 09:35 Clopidogrel 75 M g Tablet PO 75 mg DAILY BENITA Administration Heparin Sodium (Po rcine) 5,000 unit 04/05/23 01:44 04/07/23 13:28 Heparin 5,000 Un it/Ml Inj 1 Ml SUBCUT 5,000 unit Q12H BENITA Administration Piperacillin Sod/T azobactam 50 mls @ 12.5 mls /hr 04/05/23 02:00 04/07/23 13:36 Sod 3.375 gm/ So dium Chloride IV Infused Q8H BENITA Infusion Vancomycin HCl 500 mg/ Sodium 100 mls @ 200 mls /hr 04/05/23 02:00 04/06/23 15:23 Chloride IV Infused Q36H BENITA Infusion Norepinephrine Bit artrate 4 mg 254 mls @ 0 mls/h r 04/05/23 15:45 04/06/23 19:00 / Dextrose IV 0 mcg/min .Q0M BENITA 0 mls/hr Titration Protocol Per Protocol Senna/Docusate Sod ium 1 tab 04/05/23 09:00 04/07/23 09:35 Sennosides-Docus ate Tablet PO 1 tab DAILY BENITA Administration Vitals/I&O/Wt Last Vital Signs Temp 98.1 F 04/07/23 12:00 Pulse 101 H 04/07/23 13:00 Resp 25 H 04/07/23 13:00 BP 100/57 04/07/23 13:00 Pulse Ox 92 07/09/23 13:00 O2 Del Method Nasal Cannula 04/07/23 13:00 O2 Flow Rate 2 04/07/23 10:30 04/06/23 04/07/23 04/07/23 22:59 06:59 14:59 Intake Total 174.511 / 676.674 50 / 726.674 290 / 290 Output Total 400 / 1100 175 / 1275 200 / 200 Balance -225.489 / -423.326 -125 / -548.326 90 / 90 Physical Exam HENMT: COMMON NORMALS: normocephalic and atraumatic HEAD & SCALP: normocephalic and atraumatic Resp: OTHER: Fine inspiratory velcro crackles present possibly secondary to pulmonary fibrosis Cardio: COMMON NORMALS: regular rate, regular rhythm, S1 normal heart sound present, S2 normal heart sound present, No gallops present (Cardio), No murmurs present (Cardio), No rub (Cardio) and Peripheral pulses 2+ throughout RATE: regular rate RHYTHM: regular rhythm HEART SOUNDS: S1 normal heart sound present and S2 normal heart sound present PERIPHERAL PULSES: Peripheral pulses 2+ throughout GI: COMMON NORMALS: Normal to inspection, nondistended, normoactive bowel sounds present, Soft to palpation, non-tender, No hepatosplenomegaly present and no masses AUSCULTATION: Yes normoactive bowel sounds PALPATION: Yes Soft to palpation and Yes No hepatosplenomegaly present RECTAL EXAM: deferred Extremity: COMMON NORMALS: no clubbing, cyanosis or edema and no pedal edema Data 04/07/23 03:17 04/07/23 03:17 A&P Assessment and plan (1) Sepsis: (2) Dysphagia: (3) Pulmonary hypertension: (4) Ischemic cardiomyopathy: (5) Severe tricuspid regurgitation: (6) Traumatic compression fracture of T12 thoracic vertebra: (7) Hyponatremia: (8) Right lower lobe pneumonia: Plan 82-year-old female with past medical history of, significant pulmonary fibrosis, coronary artery disease, recent NSTEMI, multiple high-grade complex lesions, decided to be managed medically, COPD, on 2 L home oxygen ,came in today with chief complaint of worsening cough associated with possibly scant sputum production, she was found to be febrile on admission, currently she is being managed for. Assessment: Septic shock secondary to pneumonia: Currently patient meets criteria for septic shock, she has been adequately volume resuscitate status, at 30 mls per KG, and still is hypotensive, requiring the need for vasopressor support, other sepsis criteria includes, elevated white count, fever, pneumonia, mild hyponatremia, possible developing mild MARLO, elevated troponin. CT chest abdomen pelvis: Is showing New areas of consolidated parenchymal opacification are noted in the superior segment of right lower lobe likely repr esenting pneumonia. Smaller patch of parenchymal opacity that appears new in the posterolateral right upper lobe also is likely infectious/inflammatory. CT head without contrast no acute intracranial pathology Urinalysis is clean Respiratory viral panel negative Blood culture negative so far Sputum Gram stain culture Urine Legionella antigen bacterial ag panel negative MRSA PCR negative Tick panel: Patient states that she has a beautiful backyard, and she likely is involved in yard work. Currently empirically on broad-spectrum antibiotic vancomycin and Zosyn. Empirically on doxycycline. Fever: Likely secondary to pneumonia History of coronary artery disease: Continue aspirin Plavix History of COPD: Continue DuoNebs Supplemental oxygen as needed Chronic T12 compression fracture requires opioids CODE STATUS :AND DVT prophylaxis on subcu heparin Attestations Medical Necessity Statement*: Needs to be in hospital for IV antibiotics. Coding Level of Care Code Acute Code for [facility] Fwd Diagnoses Sepsis A41.9 Dysphagia R13.10 Pulmonary hypertension I27.20 Ischemic cardiomyopathy I25.5 Severe tricuspid regurgitation I07.1 Traumatic compression fracture of T12 thoracic vertebra S22.080A Hyponatremia E87.1 Right lower lobe pneumonia J18.9
[2023-04-07] MEDS: doxycycline 100 mg Tablet PO (18:07)
[2023-04-08] VITALS (48 sets, daily range): BP systolic 80–146; BP diastolic 49–97; PULSE 69–120; RESP 16–34; TEMP 36.7–37.4; O2SAT 83–100
[2023-04-08] MEDS: heparin 5,000 unit/mL INJ 1 mL 5000 UNIT SUBCUT ×2 (01:22→14:32)
[2023-04-08] MEDS: vancomycin 500 MG in sodium chloride 0.9% (plus) 100 ML 200 MG IV (01:22)
[2023-04-08] MEDS: piperacillin-tazobactam 3.375 GM in sodium chloride 0.9% (plus) 50 ML IV ×3 (02:08→17:21)
[2023-04-08 02:53] LABS: Basophils # 0.1 10^3/uL (0.0-0.1); Basophils % 0.9 %; Eosinophils # 0.2 10^3/uL (0.0-0.8); Eosinophils % 1.5 %; Hematocrit 32.1 % (37.0-47.0); Hemoglobin 9.9 g/dL (11.5-15.3); Lymphocytes # 3.3 10^3/uL (0.8-4.8); Lymphocytes % 32.4 %; Mean Corpuscular HGB Conc 30.8 g/dL (30.0-36.0); Mean Corpuscular Hemoglobin 29.6 pg (28.0-34.0); Mean Corpuscular Volume 95.8 fl (81-99); Mean Platelet Volume 9.1 fL (7.4-10.4); Monocytes # 0.7 10^3/uL (0.2-0.9); Monocytes % 6.7 %; Nucleated Red Blood Cells % 0 %; Platelet Count 410 10^3/cmm (130-400); Red Blood Count 3.35 10^6/uL (4.1-5.3); White Blood Count 10.2 10^3/uL (4.0-10.0)
[2023-04-08 03:16] LABS: Alanine Aminotransferase 11 U/L (0-33); Albumin Level 2.3 g/dL (3.5-5.2); Alkaline Phosphatase 58 U/L (35-105); Anion Gap 12.5 (5-19); Aspartate Amino Transferase 16 U/L (0-32); Blood Urea Nitrogen 10 mg/dL (8-23); Carbon Dioxide 25 mmol/L (22-29); Chloride 101 mmol/L (98-107); Globulin 3.9 g/dL (1.3-4.6); Glucose 110 mg/dL (65-115); Osmolality Calculated 280 mOsm/kg (285-295); Potassium 3.5 mmol/L (3.5-5.1); Sodium 135 mmol/L (136-145); Total Bilirubin 0.5 mg/dL (0.15-1.2); Total Protein 6.2 g/dL (6.6-8.7)
[2023-04-08 03:22] LABS: Cortisol Random 9.42 ug/dL (2.47-19.5)
[2023-04-08] MEDS: doxycycline 100 mg Tablet PO ×2 (08:14→17:21)
[2023-04-08] MEDS: clopidogrel 75 mg Tablet PO (08:14)
[2023-04-08] MEDS: aspirin 81 mg EC Tablet PO (08:14)
[2023-04-08] MEDS: acetaminophen 500 mg Tablet PO ×2 (09:48→23:13)
[2023-04-08 11:18] LABS: C Reactive Protein 79.1 mg/L (0.0-4.9); Iron 39 ug/dL (37-145); Percent Saturation 30.4 % (20-50); Total Iron Binding Capacity 128 mcg/dl; Unsaturated Iron Binding 89 ug/dL (112-347)
[2023-04-08 11:33] LABS: Procalcitonin 0.11 ng/mL (0-0.5); Vitamin B12 1467 pg/mL (232-1245)
[2023-04-08] MEDS: dexamethasone 10 mg/mL INJ 6 MG IVP (11:44)
[2023-04-08] MEDS: sodium chloride 0.9% 500 ML 50 ML IV ×2 (11:44→21:07)
--- NOTE | 2023-04-08 16:31 | P.PN_ITS ---
Subjective Subjective: Hospital course, labs appreciated. Today seen with daughter at bedside. Patient states she is feeling okay. Denies any nausea, vomiting, headache. Complaining of feeling weak. Maintained on 2 L of oxygen supplementation with saturation over 95%. On 2 of Levophed with mean arterial pressure over 65. On being weaned off mean arterial pressure dropping down to low 50s. Blood work appreciated for resolution of leukocytosis down to 10.2, stable hemoglobin of 9.9, stable CMP with sodium of 135 which is improving Vitals/I&O/Wt Last Vital Signs Temp 99.4 F 04/08/23 00:30 Pulse 75 04/08/23 15:58 Resp 19 H 04/08/23 15:30 BP 111/66 04/08/23 15:30 Pulse Ox 100 04/08/23 15:30 O2 Del Method Nasal Cannula 04/08/23 15:30 O2 Flow Rate 2 04/08/23 15:30 04/08/23 04/08/23 04/08/23 06:59 14:59 22:59 Intake Total 270 / 821.430 538.783 / 538.783 Output Total 450 / 950 300 / 300 Balance -180 / -128.570 238.783 / 238.783 Weight last 48 hrs Weight 49.895 kg Data 04/08/23 02:34 04/08/23 02:34 A&P Assessment and plan (1) Sepsis: (2) Right lower lobe pneumonia: (3) Dysphagia: (4) Pulmonary hypertension: (5) Ischemic cardiomyopathy: (6) Traumatic compression fracture of T12 thoracic vertebra: (7) Hyponatremia: (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 Wean Levophed accordingly. Gentle IV hydration while watching for fluid overload with normal saline at 50 cc/h for 500 cc. Encourage patient to increase oral intake. Urine Legionella, bacterial antigen, MRSA negative. Follow-up blood culture and sputum culture. Continue Zosyn. Stop vancomycin as MRSA is negative. Continue with doxycycline with concerns for possible tick infection on admission. Tick panel awaited. CAD: On medical management. Continue with aspirin, Plavix. Hold off on home dose of beta-ivanna as patient given septic shock currently. No active chest pain currently. Pulmonary fibrosis/severe COPD: Keep oxygen saturation over 90%. Supplementation accordingly. Continue with DuoNebs as needed. Wean Decadron to 6 mg IV daily. We will plan for quick taper within next 2 to 4 days. CODE STATUS: DNR/DNI. Cardiac diet. Heparin 5000 every 12 hourly for DVT prophylaxis Famotidine for PUD prophylaxis. Discharge plan: Plan to discharge back to home with possible home health once medically stable. PT evaluation. Care plan discussed in detail with patient and patient's family at bedside. Attestations Medical Necessity Statement*: Requires further hospitalization for management of septic shock in setting of right lower lobe pneumonia in a patient with baseline pulmonary fibrosis, CAD with ischemic cardiomyopathy Coding Level of Care Code Critical Care >/= 30 minutes Critical care time (in minutes): 60 The high probability of a clinically significant, sudden or life threatening deterioration, as referenced in this documentation, required my full and direct attention, intervention and personal management. The critical care time shown is in addition to time spent performing any reported separately billable procedures and includes the following: [x] Data and vital sign review and interpretation [x ] Patient assessment, examination and intervention [x] Medication orders and management [x] Patient/Family updates as able [x] Care Coordination and Documentation. Diagnoses Sepsis A41.9 Right lower lobe pneumonia J18.9 Dysphagia R13.10 Pulmonary hypertension I27.20 Ischemic cardiomyopathy I25.5 Traumatic compression fracture of T12 thoracic vertebra S22.080A Hyponatremia E87.1 Pulmonary emphysema with fibrosis of lung J43.9; J84.10
[2023-04-08] MEDS: famotidine 20 mg/2 mL INJ IVP (17:21)
[2023-04-09] VITALS (34 sets, daily range): BP systolic 96–137; BP diastolic 57–86; PULSE 59–118; RESP 17–32; TEMP 36.2–36.7; O2SAT 81–100
[2023-04-09] MEDS: piperacillin-tazobactam 3.375 GM in sodium chloride 0.9% (plus) 50 ML IV ×3 (02:59→18:05)
[2023-04-09] MEDS: heparin 5,000 unit/mL INJ 1 mL 5000 UNIT SUBCUT ×2 (02:59→14:12)
[2023-04-09] MEDS: famotidine 20 mg/2 mL INJ IVP ×2 (04:14→18:41)
[2023-04-09 04:44] LABS: Basophils % 0.3 %; Hematocrit 34.6 % (37.0-47.0); Hemoglobin 10.9 g/dL (11.5-15.3); Lymphocytes # 2.3 10^3/uL (0.8-4.8); Lymphocytes % 38.6 %; Mean Corpuscular HGB Conc 31.5 g/dL (30.0-36.0); Mean Corpuscular Hemoglobin 30.2 pg (28.0-34.0); Mean Corpuscular Volume 95.8 fl (81-99); Mean Platelet Volume 9.3 fL (7.4-10.4); Monocytes # 0.3 10^3/uL (0.2-0.9); Monocytes % 4.7 %; Neutrophils # 3.33 10^3/uL (1.8-7.7); Neutrophils % 55.6 %; Nucleated Red Blood Cells % 0 %; Platelet Count 388 10^3/cmm (130-400); Red Blood Count 3.61 10^6/uL (4.1-5.3)
[2023-04-09 05:15] LABS: Alanine Aminotransferase 12 U/L (0-33); Albumin Level 3.1 g/dL (3.5-5.2); Alkaline Phosphatase 61 U/L (35-105); Anion Gap 13.3 (5-19); Aspartate Amino Transferase 18 U/L (0-32); Blood Urea Nitrogen 10 mg/dL (8-23); Calcium 9.5 mg/dL (8.5-10.5); Carbon Dioxide 24 mmol/L (22-29); Chloride 100 mmol/L (98-107); Globulin 4.1 g/dL (1.3-4.6); Glucose 99 mg/dL (65-115); Osmolality Calculated 277 mOsm/kg (285-295); Potassium 3.3 mmol/L (3.5-5.1); Sodium 134 mmol/L (136-145); Total Bilirubin 0.4 mg/dL (0.15-1.2); Total Protein 7.2 g/dL (6.6-8.7)
[2023-04-09 05:17] LABS: Creatinine Clr Calc Pharmacy 34.2484
[2023-04-09 05:19] LABS: Chol HDL Ratio 3.02 mg/dL (0.0-4.40); Cholesterol 130 mg/dL (0-200); HDL Cholesterol 43 mg/dL (60-100); LDL Cholesterol Calculated 73 mg/dL (50-129); Triglycerides 71 mg/dL (0-150); VLDL Cholestrol Calculation 14 mg/dL (0-30)
[2023-04-09 05:21] LABS: Estmated Average Glucose 108; Hemoglobin A1C 5.4 % (4.0-6.0)
[2023-04-09 05:31] LABS: Folate Level 17.7 ng/mL (4.8-37.3)
[2023-04-09] MEDS: sennosides-docusate Tablet 1 TAB PO (08:23)
[2023-04-09] MEDS: aspirin 81 mg EC Tablet PO (08:23)
[2023-04-09] MEDS: clopidogrel 75 mg Tablet PO (08:23)
[2023-04-09] MEDS: doxycycline 100 mg Tablet PO ×2 (08:23→18:06)
[2023-04-09] MEDS: dexamethasone 10 mg/mL INJ 6 MG IVP (09:43)
--- NOTE | 2023-04-09 10:47 | PC.NURSE ---
Verbal order from Dr. Black to hold NS infusion at this time.
--- NOTE | 2023-04-09 10:49 | PC.SOCIAL ---
IMM update IMM updated with patient and daughter at bedside. Copy PG 2 provided. Verbalized an understanding. Initialled, dated, timed, and placed in chart.
[2023-04-09 12:55] LABS: Lyme AB Screen <0.90 index
[2023-04-09 13:35] LABS: Vancomycin Trough 4.3 ug/mL (10-15)
--- NOTE | 2023-04-09 14:34 | PC.NURSE ---
Report called to second floor.
--- NOTE | 2023-04-09 15:29 | PM.PN ---
Subjective Subjective: No acute events overnight. Patient has remained hemodynamically stable and afebrile. Levophed was turned off yesterday after which hemodynamics have remained stable. Blood work appreciated for stable CBC with no leukocytosis, stable hemoglobin, BMP showing mild hypokalemia, stable creatinine and sodium levels. Urine documented of around 1 L in last 24 hours. Patient continues to remain on baseline oxygen supplementation. Patient worked well with physical therapy today and walked in the unit. Vitals/I&O/Wt Last Vital Signs Temp 97.8 F 04/09/23 09:30 Pulse 98 04/09/23 14:18 Resp 22 H 04/09/23 14:00 BP 137/73 04/09/23 14:00 Pulse Ox 98 04/09/23 14:00 O2 Del Method Nasal Cannula 04/09/23 14:00 O2 Flow Rate 2 04/09/23 14:00 04/09/23 04/09/23 04/09/23 06:59 14:59 22:59 Intake Total 150 / 1644.397 960 / 960 Output Total 400 / 1000 250 / 250 Balance -250 / 644.397 710 / 710 Weight last 48 hrs Weight 49.895 kg Weight 49.895 kg Physical Exam Narrative: General: No acute distress, AO x3, 2 L nasal cannula HEENT: PERRLA, pupils bilaterally equal and reactive Chest: Bilateral bronchial breath sounds all over lung collazo with fine crackles diffuse all over lung collazo with occasional rhonchi CVS: S1-S2 regular, no murmurs, no tachycardia, no gallops, no rubs Abdomen: Soft, nontender, no organomegaly, bowel sounds present Neuro: No focal deficits, no facial deformity, AO x3, power 5/5 in all limbs Data 04/09/23 04:04 04/09/23 04:04 A&P Assessment and plan (1) Sepsis: (2) Right lower lobe pneumonia: (3) Dysphagia: (4) Pulmonary hypertension: (5) Ischemic cardiomyopathy: (6) Traumatic compression fracture of T12 thoracic vertebra: (7) Hyponatremia: (8) Pulmonary emphysema with fibrosis of lung: Plan Septic shock secondary to pneumonia: Septic shock is resolved. Keep mean artery pressure 65. Encourage patient to increase oral intake. Urine Legionella, bacterial antigen, MRSA negative. Blood cultures so far negative. Sputum culture pending. Continue Zosyn. Continue IV antibiotics for overall 5-day course. Switch to oral antibiotics on discharge. Continue with doxycycline with concerns for possible tick infection on admission. Tick panel awaited. CAD: On medical management. Continue with aspirin, Plavix. Off Levophed for last 24 hours. Will restart home dose of metoprolol from evening. No active chest pain. Pulmonary fibrosis/severe COPD: Keep oxygen saturation over 90%. Supplementation accordingly. Continue with DuoNebs as needed. Wean Decadron to 6 mg IV daily. We will plan for quick taper within next 2 to 4 days. Most likely will discharge on quick taper as an outpatient. CODE STATUS: DNR/DNI. Cardiac diet. Heparin 5000 every 12 hourly for DVT prophylaxis Famotidine for PUD prophylaxis. Discharge plan: Patient would benefit with home health. Home will declined by patient and family. Plan to discharge back home in next 24 hours with caregiver if patient remains medically stable Transfer out of ICU to [facility]. Care plan discussed in detail with patient and patient's family at bedside. Attestations Medical Necessity Statement*: Requires further hospitalization for management of resolving septic shock in setting of pneumonia in a patient with baseline severe pulmonary fibrosis Diagnoses Sepsis A41.9 Right lower lobe pneumonia J18.9 Dysphagia R13.10 Pulmonary hypertension I27.20 Ischemic cardiomyopathy I25.5 Traumatic compression fracture of T12 thoracic vertebra S22.080A Hyponatremia E87.1 Pulmonary emphysema with fibrosis of lung J43.9; J84.10
[2023-04-09] MEDS: acetaminophen 500 mg Tablet PO (23:45)
[2023-04-10] VITALS (7 sets, daily range): BP systolic 108–142; BP diastolic 65–90; PULSE 62–102; RESP 15–19; TEMP 36.4–36.5; O2SAT 92–97
[2023-04-10] MEDS: heparin 5,000 unit/mL INJ 1 mL 5000 UNIT SUBCUT (02:01)
[2023-04-10] MEDS: piperacillin-tazobactam 3.375 GM in sodium chloride 0.9% (plus) 50 ML IV ×2 (02:01→10:30)
[2023-04-10] MEDS: famotidine 20 mg/2 mL INJ IVP (05:17)
[2023-04-10 06:13] LABS: Basophils % 0.2 %; Eosinophils % 0.2 %; Hematocrit 25.1 % (37.0-47.0); Hemoglobin 8.5 g/dL (11.5-15.3); Lymphocytes # 3.4 10^3/uL (0.8-4.8); Lymphocytes % 35.9 %; Mean Corpuscular HGB Conc 33.9 g/dL (30.0-36.0); Mean Corpuscular Volume 94.4 fl (81-99); Mean Platelet Volume 10.8 fL (7.4-10.4); Monocytes # 0.5 10^3/uL (0.2-0.9); Neutrophils # 5.55 10^3/uL (1.8-7.7); Neutrophils % 58.1 %; Nucleated Red Blood Cells % 0 %; Platelet Count 537 10^3/cmm (130-400); Red Blood Count 2.66 10^6/uL (4.1-5.3); Red Cell Distribution Width 15.2 % (12.1-15.1); White Blood Count 9.6 10^3/uL (4.0-10.0)
[2023-04-10 08:14] LABS: Alanine Aminotransferase 12 U/L (0-33); Albumin Level 2.8 g/dL (3.5-5.2); Alkaline Phosphatase 51 U/L (35-105); Anion Gap 12.4 (5-19); Aspartate Amino Transferase 18 U/L (0-32); Blood Urea Nitrogen 13 mg/dL (8-23); Calcium 9.7 mg/dL (8.5-10.5); Carbon Dioxide 23 mmol/L (22-29); Chloride 104 mmol/L (98-107); Globulin 3.8 g/dL (1.3-4.6); Glucose 69 mg/dL (65-115); Osmolality Calculated 280 mOsm/kg (285-295); Potassium 3.4 mmol/L (3.5-5.1); Sodium 136 mmol/L (136-145); Total Bilirubin 0.4 mg/dL (0.15-1.2); Total Protein 6.6 g/dL (6.6-8.7)
[2023-04-10] MEDS: sennosides-docusate Tablet 1 TAB PO (09:18)
[2023-04-10] MEDS: acetaminophen 500 mg Tablet PO (09:18)
[2023-04-10] MEDS: aspirin 81 mg EC Tablet PO (09:18)
[2023-04-10] MEDS: clopidogrel 75 mg Tablet PO (09:19)
[2023-04-10] MEDS: doxycycline 100 mg Tablet PO (09:19)
--- NOTE | 2023-04-10 10:27 | P.DS_ITS ---
Discharge Providers Date of Admission: 04/04/23 21:44 Date of Discharge: April 10, 2023 Attending Provider at Admission: Rachelle Chamorro MD Attending Provider at Discharge: Gabe Black MD Primary Care Provider: Eber Albarran MD Diagnoses at Discharge Discharge Diagnosis (1) Sepsis: Status: Acute (2) Right lower lobe pneumonia: Status: Acute (3) Dysphagia: Status: Acute (4) Pulmonary hypertension: Status: Acute (5) Ischemic cardiomyopathy: Status: Acute (6) Traumatic compression fracture of T12 thoracic vertebra: Status: Inactive (7) Hyponatremia: Status: Acute (8) Pulmonary emphysema with fibrosis of lung: Status: Acute Reason for Visit Reason for Visit: sepsis Brief History: History as per HPI: Karen Hernandes is a 82 year old female with COPD, chronic hypoxia, pulmonary fibrosis, was recently discharged from the hospital after adequate management of non-STEMI left heart cath showed multiple high-grade complex lesions, decision was made to manage her medically, patient is DNI/DNI, patient has had multiple right-sided pneumonia, recent CTA did not show PE, patient presented today for productive cough and shortness of breath. Patient stating that she called her daughter today because of her worsening of cough and shortness of breath.? At baseline she requires 2 to 3 L of oxygen, she is febrile in the ER, has right lower lobe pneumonia with significant hypoxia, patient is stating that her blood pressure normally stays in the 90s and never touches 100s she does have significant leukocytosis with high D-dimer, creatinine 1.2 Hospital Course Hospital Course Patient was admitted to the ICU for further evaluation and management of severe sepsis requiring vasopressors along with MARLO most likely in setting of ATN. She started on broad-spectrum antibiotics. There were concerns for right lower lobe pneumonia on admission. CTA was done which ruled out pulmonary embolism. Patient gradually improved and his vasopressor requirement was weaned off. She was transferred to the floors. She worked well with physical therapy and is back to her baseline mentation with improving physical deconditioning. During hospitalization her blood culture and urine culture remain negative. She has finished a course of IV antibiotics. She has been discharged in hemodynamically stable condition on baseline oxygen supplementation with advised to continue taking doxycycline for a probable infection for 3 more days, her antihypertensives have been adjusted. She is not to take losartan, Lasix or spironolactone for now. She is to continue taking her home dose of metoprolol. Lasix has been withheld for 3 days while other medications including losartan, spironolactone were withheld for 2 weeks. She is to check her blood pressure daily and maintain a blood pressure diary and follow-up with her primary care provider within next 10 days for further adjustment of antihypertensives. She is to take prednisone taper as described after which she will continue taking her home dose of prednisone. Physical Exam Narrative: General: No acute distress, AO x3, on RA HEENT: PERRLA, pupils bilaterally equal and reactive Chest: Bilateral bronchial breath sounds all over lung collazo with fine crackles diffuse all over lung collazo with occasional rhonchi CVS: S1-S2 regular, no murmurs, no tachycardia, no gallops, no rubs Abdomen: Soft, nontender, no organomegaly, bowel sounds present Neuro: No focal deficits, no facial deformity, AO x3, power 5/5 in all limbs Discharge Data Studies Completed and Pending Completed Studies During Hospitalization Category Date Time Status CT chest abdomen pelvis [CT chest abdpel w/*[id number] Cat Scan 04/04/23 19:29 Completed ] Stat CT head wo con* [id number] Stat Cat Scan 04/04/23 19:29 Completed XR chest 1V portable [id number] Stat Exams 04/04/23 18:05 Completed Pending at discharge Category Date Time Status Sputum Culture and Gram Stain Stat Lab 04/04/23 22:20 Uncollected Tick Panel Routine Lab 04/07/23 19:25 Results Radiology Impressions Chest X-Ray 04/04/23 18:05 IMPRESSION: Chronic interstitial fibrotic lung changes, [id number], as noted with prior exam. No acute findings, otherwise. Chest/Abdomen/Pelvis CT 04/04/23 19:29 IMPRESSION: New areas of parenchymal abnormality likely representing pneumonia in right lung. Underlying severe pulmonary fibrosis as well as underlying emphysema noted. Additional details as above. IMPRESSION: No acute findings. Head CT 04/04/23 19:29 IMPRESSION: Stable appearance with prior exam January 22, 2023 as noted above. No acute intracranial abnormality. Microbiology 04/04/23 18:51 Blood Blood Culture - Final NO GROWTH AFTER 5 DAYS 04/04/23 18:43 Blood Blood Culture - Final NO GROWTH AFTER 5 DAYS 04/05/23 03:05 Nose MRSA Culture - Final 04/05/23 02:41 Urine,Clean Catch Legionella Urinary Antigen - Final 04/05/23 02:41 Urine,Clean Catch Bacterial Antigens - Final Laboratory Results WBC 9.6 10^3/uL (4.0-10.0) 04/10/23 05:25 RBC 2.66 10^6/uL (4.1-5.3) L 04/10/23 05:25 Hgb 8.5 g/dL (11.5-15.3) L 04/10/23 05:25 Hct 25.1 % (37.0-47.0) L 04/10/23 05:25 MCV 94.4 fl (81-99) 04/10/23 05:25 MCH 32.0 pg (28.0-34.0) 04/10/23 05:25 MCHC 33.9 g/dL (30.0-36.0) D 04/10/23 05:25 RDW 15.2 % (12.1-15.1) H 04/10/23 05:25 Plt Count 537 10^3/cmm (130-400) H D 04/10/23 05:25 MPV 10.8 fL (7.4-10.4) H 04/10/23 05:25 Neut % (Auto) 58.1 % 04/10/23 05:25 Lymph % (Auto) 35.9 % 04/10/23 05:25 Posey % (Auto) 5.0 % 04/10/23 05:25 Eos % (Auto) 0.2 % 04/10/23 05:25 Baso % (Auto) 0.2 % 04/10/23 05:25 Neut # (Auto) 5.55 10^3/uL (1.8-7.7) 04/10/23 05:25 Lymph # (Auto) 3.4 10^3/uL (0.8-4.8) 04/10/23 05:25 Posey # (Auto) 0.5 10^3/uL (0.2-0.9) 04/10/23 05:25 Eos # (Auto) 0.0 10^3/uL (0.0-0.8) 04/10/23 05:25 Baso # (Auto) 0.0 10^3/uL (0.0-0.1) 04/10/23 05:25 Nucleated RBC % (auto) 0 % 04/10/23 05:25 Nucleated RBCs # 0.0 /100WBC 04/10/23 05:25 D-Dimer 6.10 ug/mIFEU (0-0.59) H 04/04/23 18:00 Specimen Type Arterial 04/04/23 13:29 Sample Site Radial, right 04/04/23 13:29 ABG pH 7.51 (7.35-7.45) H 04/04/23 13:29 ABG pCO2 33.6 mmHg (35-45) L 04/04/23 13:29 ABG pO2 76.3 mmHg (80.0-100.0) L 04/04/23 13:29 ABG HCO3 26.6 mmol/L (22-26) H 04/04/23 13:29 ABG Base Excess 3.5 mmol/L (-2.0-2.0) H 04/04/23 13:29 Alejo Test Pos 04/04/23 13:29 Hematocrit 27.1 % (37-47) L 04/04/23 13:29 O2 Delivery Device Nc 04/04/23 13:29 O2 Liters/Min 2.0 % 04/04/23 13:29 Adjuster And Inspector ID Mor 04/04/23 13:29 Sodium 136 mmol/L (136-145) 04/10/23 07:48 Potassium 3.4 mmol/L (3.5-5.1) L 04/10/23 07:48 Chloride 104 mmol/L (98-107) 04/10/23 07:48 Carbon Dioxide 23 mmol/L (22-29) 04/10/23 07:48 Anion Gap 12.4 (5-19) 04/10/23 07:48 BUN 13 mg/dL (8-23) 04/10/23 07:48 Creatinine 0.9 mg/dL (0.5-0.9) 04/10/23 07:48 GFR Calculation Not Reportable 04/10/23 07:48 Glucose 69 mg/dL (65-115) 04/10/23 07:48 POC Glucose 108 mg/dL (70-110) 04/06/23 16:39 Estimat Average Glucose 108 04/09/23 04:04 Hemoglobin A1c 5.4 % (4.0-6.0) 04/09/23 04:04 Calculated Osmolality 280 mOsm/kg (285-295) L 04/10/23 07:48 Lactic Acid 1.9 mmol/L (0.5-2.2) 04/04/23 18:51 Calcium 9.7 mg/dL (8.5-10.5) 04/10/23 07:48 Phosphorus 3.3 mg/dL (2.5-4.5) 04/05/23 02:40 Magnesium 1.8 mg/dL (1.7-2.3) 04/05/23 02:40 Iron 39 ug/dL (37-145) 04/08/23 02:34 TIBC 128 mcg/dl 04/08/23 02:34 % Saturation 30.4 % (20-50) 04/08/23 02:34 Unsat Iron Binding 89 ug/dL (112-347) L 04/08/23 02:34 Total Bilirubin 0.4 mg/dL (0.15-1.2) 04/10/23 07:48 AST 18 U/L (0-32) 04/10/23 07:48 ALT 12 U/L (0-33) 04/10/23 07:48 Alkaline Phosphatase 51 U/L (35-105) 04/10/23 07:48 Troponin T Baseline 45 ng/L (0-10) H 04/04/23 18:00 Troponin T 120 Minute 38.98 ng/L (0-10) H 04/04/23 20:12 Delta Troponin T -6.02 ABS# (0-10) L 04/04/23 20:12 Troponin T Hi Sens 6Hr 38.89 ng/L (0-10) H 04/05/23 02:40 Troponin T Hi Sens 6Hr Delta -6.11 ng/L (0-12) L 04/05/23 02:40 C-Reactive Protein 79.1 mg/L (0.0-4.9) H 04/08/23 02:34 Total Protein 6.6 g/dL (6.6-8.7) 04/10/23 07:48 Albumin 2.8 g/dL (3.5-5.2) L 04/10/23 07:48 Globulin 3.8 g/dL (1.3-4.6) 04/10/23 07:48 Triglycerides 71 mg/dL (0-150) 04/09/23 04:04 Cholesterol 130 mg/dL (0-200) 04/09/23 04:04 LDL Cholesterol, Calc 73 mg/dL (50-129) 04/09/23 04:04 Total VLDL Cholesterol 14 mg/dL (0-30) 04/09/23 04:04 HDL Cholesterol 43 mg/dL (60-100) L 04/09/23 04:04 Cholesterol/HDL Ratio 3.02 mg/dL (0.0-4.40) 04/09/23 04:04 Vitamin B12 1467 pg/mL (232-1245) H 04/08/23 02:34 Folate 17.7 ng/mL (4.8-37.3) 04/09/23 04:04 Procalcitonin 0.11 ng/mL (0-0.5) 04/08/23 02:34 TSH 2.86 uIU/mL (0.27-4.20) 04/05/23 02:40 Random Cortisol 9.42 ug/dL (2.47-19.5) 04/08/23 02:34 Urine Color Colorless (Yellow) 04/05/23 02:41 Urine Appearance Clear (CLEAR) 04/05/23 02:41 Urine pH 6.5 (5-7) 04/05/23 02:41 Ur Specific [place] 1.005 (1.005-1.030) 04/05/23 02:41 Urine Protein Neg (Negative) 04/05/23 02:41 Urine Glucose (UA) Norm (Normal) 04/05/23 02:41 Urine Ketones Negative (Negative) 04/05/23 02:41 Urine Blood Neg (Negative) 04/05/23 02:41 Urine Nitrate Negative (Negative) 04/05/23 02:41 Urine Bilirubin Neg (Negative) 04/05/23 02:41 Urine Urobilinogen Neg mg/dL (Negative) 04/05/23 02:41 Ur Leukocyte Esterase Negative (Negative) 04/05/23 02:41 Nasal Influ A H1 2008 PCR Not detected (NOT DETECT) 04/04/23 20:40 Vancomycin Trough 4.3 ug/mL (10-15) L 04/09/23 12:50 Adenovirus (PCR) Not detected (NOT DETECT) 04/04/23 20:40 Lyme Ab (Western Blot) <0.90 index 04/07/23 19:25 C. pneumoniae DNA (PCR) Not detected (NOT DETECT) 04/04/23 20:40 Coronavirus 229E (PCR) Not detected (NOT DETECT) 04/04/23 20:40 Human Metapneumovir PCR Not detected (NOT DETECT) 04/04/23 20:40 Influenza A (H1) PCR Not detected (NOT DETECT) 04/04/23 20:40 Influenza A (H3) PCR Not detected (NOT DETECT) 04/04/23 20:40 Influenza Type A (PCR) Not detected (NOT DETECT) 04/04/23 20:40 Influenza Type B (PCR) Not detected (NOT DETECT) 04/04/23 20:40 M. pneumoniae (PCR) Not detected (NOT DETECT) 04/04/23 20:40 Parainfluenza 1 (PCR) Not detected (NOT DETECT) 04/04/23 20:40 Parainfluenza 2 (PCR) Not detected (NOT DETECT) 04/04/23 20:40 Parainfluenza 3 (PCR) Not detected (NOT DETECT) 04/04/23 20:40 Parainfluenza 4 (PCR) Not detected (NOT DETECT) 04/04/23 20:40 RSV Type A (PCR) Not detected (NOT DETECT) 04/04/23 20:40 RSV Type B (PCR) Not detected (NOT DETECT) 04/04/23 20:40 Entero/Rhino (PCR) Not detected (NOT DETECT) 04/04/23 20:40 SARS-CoV-2 (PCR) Not detected (NOT DETECT) 04/04/23 20:40 Vitals Last Vital Signs Temp 97.6 F 04/10/23 07:07 Pulse 92 04/10/23 08:00 Resp 18 04/10/23 08:00 BP 108/65 04/10/23 07:07 Pulse Ox 97 04/10/23 08:00 O2 Del Method Room Air 04/10/23 08:00 O2 Flow Rate 1.5 04/09/23 20:28 Discharge Plan Discharge Patient Disposition: Home Condition: Stable Prescriptions: New doxycycline monohydrate 100 mg Tablet 100 mg PO BID Qty: 6 0RF prednisone 10 mg tablet See Taper PO DIRECTED Qty: 42 0RF Taper: predniSONE 60-10 60 mg Daily for 2 Days and 0 Hour 50 mg Daily for 2 Days and 0 Hour 40 mg Daily for 2 Days and 0 Hour 30 mg Daily for 2 Days and 0 Hour 20 mg Daily for 2 Days and 0 Hour 10 mg Daily for 2 Days and 0 Hour Rx Instructions: TAPER: 60 mg daily for 2 Days; 50 mg daily for 2 Days; 40 mg daily for 2 Days; 30 mg daily for 2 Days; 20 mg daily for 2 Days; 10 mg daily for 2 Days Continued hydrocodone-acetaminophen 5-325 mg tablet 1 tab PO Q6H PRN (Reason: Pain) fluticasone propionate [Flonase Allergy Relief] 50 mcg/actuation spray,suspension 2 spray intranasal DAILY PRN (Reason: Allergy Symptoms) Rx Instructions: administer into each nostril metoprolol tartrate 25 mg tablet 25 mg PO BID@0900,2100 Qty: 180 3RF albuterol sulfate 90 mcg/actuation HFA aerosol inhaler 2 puff INHALATION Q4H PRN (Reason: Shortness Of Breath) tramadol 50 mg tablet 50 mg PO Q8H PRN (Reason: Pain) cetirizine 10 mg tablet 10 mg PO BEDTIME acetaminophen 500 mg Tablet 500 mg PO Q6H PRN (Reason: Pain) montelukast 10 mg tablet 10 mg PO DAILY PRN (Reason: Allergy Symptoms) lorazepam 1 mg tablet 0.5 - 1 mg PO DAILY PRN (Reason: Anxiety) atorvastatin 40 mg Tablet 40 mg PO BEDTIME 30 Days Qty: 30 1RF clopidogrel 75 mg tablet 75 mg PO DAILY@09 aspirin 81 mg Tablet,Delayed Release (Dr/Ec) 81 mg PO DAILY@09 Nitrostat 0.4 mg Tablet, Sublingual 0.4 mg SUBLINGUAL Q5M PRN (Reason: Chest Pain) Rx Instructions: do not exceed 3 doses per episode Trelegy Ellipta 100-62.5-25 mcg blister with device 1 inh inhalation DAILY PRN (Reason: unknown) Held losartan 50 mg Tablet 25 mg PO DAILY 30 Days Qty: 30 1RF Hold Instructions: Resume on 04/17/23. prednisone 5 mg tablet 5 mg PO DAILY@09 Hold Instructions: Resume on 04/22/23. spironolactone 25 mg tablet 25 mg PO DAILY@09 Hold Instructions: Resume on 04/17/23. furosemide 20 mg tablet 20 mg PO DAILY@09 Hold Instructions: Resume on 04/13/23. Discharge Orders: Discharge Order (Routine); Ordered 04/10/23 Ordered By: Gabe Black Referrals: Eber Albarran MD [Primary Care Provider] - 04/17/23 2:30 pm Discharge Diet: Cardiac Discharge Activity: Resume usual activity and Increase activity as tolerated Patient Instructions: Doxycycline (By mouth), Prednisone (By mouth) (predniSONE Intensol, Prednicot, Deltasone, Radha), Viral Pneumonia (DC), Pulmonary Fibrosis (DC), Opioid Safety Activity Restrictions/Additional Instructions: Check your blood pressure daily and maintain a blood pressure diary. Follow-up with a primary care provider within next 1 week for further adjustment of antihypertensive. For now continue taking your home dose of metoprolol. Losartan, spironolactone have been withheld for next 2 weeks or until you see your primary care provider. Lasix has been withheld for next 3 days. For now take prednisone taper as directed. Restart your home dose of prednisone 5 mg once daily for 12 days which is after completion of her steroid taper. Doxycycline is the antibiotic which you need to be on for next 3 days. Follow-up with a primary care provider within next 1 week. Discharge Attestations Time Spent in Discharge Care*: greater than 30 min Specific Discharge Activities: educating patient, educating and/or supporting family/caregiver, discussing with pcp/other providers, discussing with case technician/social workers/dc planners, documenting/other paperwork and evaluating patient/reviewing data Status at Discharge: Cognitive status at discharge: cognitively intact , Behavioral status at discharge: cooperative , Functional status at discharge: independent ambulation , Overall status at discharge: patient is back to baseline Quality Metrics Clinical Quality Measures [ No reported AMI, CVA or VTE this stay] Coding Level of Care Code 61793 Total time (in minutes) for Discharge: 60 Diagnoses Sepsis A41.9 Right lower lobe pneumonia J18.9 Dysphagia R13.10 Pulmonary hypertension I27.20 Ischemic cardiomyopathy I25.5 Traumatic compression fracture of T12 thoracic vertebra S22.080A Hyponatremia E87.1 Pulmonary emphysema with fibrosis of lung J43.9; J84.10
[2023-04-10] MEDS: dexamethasone 10 mg/mL INJ 6 MG IVP (10:30)
[2023-04-11 17:10] LABS: E. Chaffeensis AB IGG <1:64; E. Chaffeensis AB IGM <1:20
[2023-04-13 16:54] LABS: RMSF IGG NOT DETECTED; RMSF IGM NOT DETECTED
== END 2023-04-10 13:12 | disposition home or self-care (01) | DRG 871 ==
LOC: ER 22:43 → ICU 23:20 → MEDSURG 04-09 15:25
PROVIDERS: Internal Medicine; Admitting Provider Internal Medicine; Emergency Provider Emergency Medicine; PCP Family Medicine; Visit Provider Student in an Organized Health Care Education/Training Program
DX: A41.9 Sepsis, unspecified organism (principal); J18.9 Pneumonia, unspecified organism; R65.21 Severe sepsis with septic shock; N17.9 Acute kidney failure, unspecified; E87.1 Hypo-osmolality and hyponatremia; J43.9 Emphysema, unspecified; J84.10 Pulmonary fibrosis, unspecified; Z66 Do not resuscitate; I25.2 Old myocardial infarction; Z79.891 Long term (current) use of opiate analgesic; Z79.51 Long term (current) use of inhaled steroids; Z79.02 Long term (current) use of antithrombotics/antiplatelets; Z79.82 Long term (current) use of aspirin; Z87.01 Personal history of pneumonia (recurrent); Z86.16 Personal history of COVID-19; Z87.891 Personal history of nicotine dependence; E86.0 Dehydration; I27.20 Pulmonary hypertension, unspecified; I25.5 Ischemic cardiomyopathy; E87.6 Hypokalemia; R77.8 Other specified abnormalities of plasma proteins; I95.9 Hypotension, unspecified; I25.10 Atherosclerotic heart disease of native coronary artery without angina pectoris; I07.1 Rheumatic tricuspid insufficiency
CPT/HCPCS: 36415; 36416; 36600; 70450; 71045; 71260; 74177; 80048; 80053; 80061; 80202; 81003; 82533; 82607; 82746; 82803; 82962; 83036; 83540; 83550; 83605; 83735; 84100; 84145; 84443; 84484; 85025; 85378; 86140; 86403; 86618; 86666; 86757; 87040; 87449; 87486; 87581; 87633; 87641; 93005; 94640; 96365; 96367; 96372; 96376; 97110; 97116; 97161; 97530; 99285; J0131; J0692; J1100; J1644; J2543; J3370; J3490; J7030; J7040; J7060; J7120; Q9967

== ENCOUNTER 2023-04-24 12:37 | Emergency (ER) | payer MEDICARE, SELFPAY ==
[2023-04-24 12:41] VITALS: BP 86/45; PULSE 89; RESP 17; TEMP 36.4; O2SAT 100
--- NOTE | 2023-04-24 13:08 | XR_ITS ---
WS: [id number] EXAMINATION: XR chest 1V portable [id number] REASON FOR EXAM: dyspnea/cough COMPARISON: 04/04/2023 ORDER DATE: 04/24/2023 1:11 PM TECHNIQUE: A single, portable frontal chest x-ray was obtained. X-RAY FINDINGS: Lungs: Chronic interstitial fibrotic lung changes, [id number], as seen with prior exam. No interval new consolidation. Decreased inspiration noted. Pleural spaces: Unremarkable. No pleural effusion. No pneumothorax. Heart/Mediastinum: Unremarkable. No cardiomegaly. Bones/joints: Prior vertebroplasty T12. XR/XR chest 1V portable [id number] IMPRESSION: Chronic interstitial fibrotic lung changes, [id number], as noted with prior exam. No acute findings, otherwise.
[2023-04-24 13:20] LABS: Basophils # 0.1 10^3/uL (0.0-0.1); Basophils % 0.3 %; Eosinophils # 0.1 10^3/uL (0.0-0.8); Eosinophils % 0.5 %; Hematocrit 37.3 % (37.0-47.0); Hemoglobin 11.8 g/dL (11.5-15.3); Lymphocytes # 3.8 10^3/uL (0.8-4.8); Mean Corpuscular HGB Conc 31.6 g/dL (30.0-36.0); Mean Corpuscular Hemoglobin 30.9 pg (28.0-34.0); Mean Corpuscular Volume 97.6 fl (81-99); Mean Platelet Volume 9.4 fL (7.4-10.4); Monocytes # 0.9 10^3/uL (0.2-0.9); Monocytes % 4.7 %; Neutrophils # 14.79 10^3/uL (1.8-7.7); Neutrophils % 74.7 %; Nucleated Red Blood Cells % 0 %; Platelet Count 412 10^3/cmm (130-400); Red Blood Count 3.82 10^6/uL (4.1-5.3); White Blood Count 19.8 10^3/uL (4.0-10.0)
--- NOTE | 2023-04-24 13:26 | ED_ITS ---
HPI - Syncope General: Chief Complaint: Syncope Stated Complaint: Near Syncope Time Seen by Provider: 04/24/23 13:07 Source: patient Mode of arrival: ambulatory History of Present Illness: 82-year-old female presents emergency room after near syncopal episode at home. She was standing at the sink washing her hair she went to stand upright after bending over the sink for a time bit lightheaded and dizzy. Her daughter became concerned and put her oxygen on which she has for pulmonary fibrosis and gave her the sublingual nitro. Then sat her down in a chair EMS was called because she continued to be lightheaded and dizzy. She denies any chest pain no abdominal pain no fever sweats chills vomiting or diarrhea was recently hospitalized for pneumonia. She only wears her oxygen occasionally. MD complaint: almost passed out Onset (ago): minute(s) Prodromal symptoms: lightheaded Witnessed: Yes - by Bystander Context: standing up Associated symptoms: Deny abdominal pain, chest pain, fever(s), headache(s), lightheadedness, nausea, short of breath, vertigo or weakness Treatments prior to arrival: IV fluids Review of Systems Const: Reports: fatigue; Denies: fever(s) or chills ENMT: Denies: throat pain, ear or mastoid pain, nasal discharge or nasal congestion Card: Denies: chest pain, palpitations, irregular heart rhythm, edema or lightheadedness Resp: Reports: dyspnea, non-productive cough and wheezing; Denies: productive cough GI: Denies: abdominal pain or nausea : Denies: flank pain, difficulty voiding, dysuria, urinary frequency or urinary urgency Musc: Denies: neck pain or back pain Skin/Breast: Denies: rash or pruritus Neuro: Denies: headache(s) or vertigo PFS ED PFSH: Medical History Allergic rhinitis Atherosclerotic heart disease of [place] coronary artery with other forms of angina pectoris Cardiomyopathy COVID Ischemic cardiomyopathy Pneumonia Pulmonary emphysema with fibrosis of lung Severe tricuspid regurgitation Traumatic compression fracture of T12 thoracic vertebra Surgical History H/O section History of abdominal surgery Family History Father Myocardial infarction Family/Other Breast cancer Social History Smoking and tobacco status: former smoker Quit status (tobacco): has quit using tobacco Year quit tobacco: 50-60 years ago Alcohol intake: never Substance/Drug Use: never Physical Exam Const: GENERAL APPEARANCE: cooperative and comfortable ORIENTATION/CONSCIOUSNESS: Yes awake, Yes oriented to person, Yes oriented to place and Yes oriented to time HENMT: COMMON NORMALS: normocephalic, atraumatic and hearing grossly normal bilaterally HEAD & SCALP: normocephalic and atraumatic Resp: COMMON NORMALS: No use of accessory muscles AUSCULTATION: rhonchi and wheezes Cardio: COMMON NORMALS: regular rate, regular rhythm and No murmurs present (Cardio) RATE: regular rate RHYTHM: regular rhythm GI: COMMON NORMALS: Soft to palpation and No hepatosplenomegaly present AUSCULTATION: Yes normoactive bowel sounds PALPATION: Yes Soft to palpation, No Tenderness to palpation present (GI), No Guarding due to palpation present (GI) and Yes No hepatosplenomegaly present Extremity: COMMON NORMALS: normal to inspection, capillary refill normal, no clubbing, cyanosis or edema, no calf tenderness and no pedal edema Neuro: SENSORIUM/ORIENTATION: Yes oriented to person, Yes oriented to place and Yes oriented to time Skin: COMMON NORMALS: no rashes or lesions noted GENERAL SKIN EXAM: no rashes or lesions noted Course Vital Signs: Vital signs: Vital Signs Temperature 97.6 F 04/24/23 12:41 Pulse Rate 68 04/24/23 13:58 Respiratory Rate 17 04/24/23 12:41 Blood Pressure 90/59 04/24/23 16:49 Pulse Oximetry 100 04/24/23 16:49 Oxygen Delivery Me thod Room Air 04/24/23 15:41 Oxygen Flow Rate 2 04/24/23 12:41 MDM - Syncope Medical Decision Making Labs and imaging reviewed no significant finding patient is feeling much better is anxious to go home. EKG does not show any acute ST changes. I think she had some orthostasis unfortunately is complicated by the administration of nitro which further lowers her blood pressure she is recovered from that feels well she would like to go home discussed use of nitroglycerin in the future have her follow-up with her primary care doctor we will have her hold her Lasix for the next few days until she sees PCP. Medical Records I reviewed the patient's medical records. Lab Data I reviewed the patient's lab results. 04/24/23 13:08 04/24/23 13:08 Radiology Impressions Chest X-Ray 04/24/23 13:08 IMPRESSION: Chronic interstitial fibrotic lung changes, [id number]-bhpy-left, as noted with prior exam. No acute findings, otherwise. Laboratory Results WBC 19.8 10^3/uL (4.0-10.0) H 04/24/23 13:08 RBC 3.82 10^6/uL (4.1-5.3) L 04/24/23 13:08 Hgb 11.8 g/dL (11.5-15.3) 04/24/23 13:08 Hct 37.3 % (37.0-47.0) 04/24/23 13:08 MCV 97.6 fl (81-99) 04/24/23 13:08 MCH 30.9 pg (28.0-34.0) 04/24/23 13:08 MCHC 31.6 g/dL (30.0-36.0) 04/24/23 13:08 RDW 17.0 % (12.1-15.1) H 04/24/23 13:08 Plt Count 412 10^3/cmm (130-400) H 04/24/23 13:08 MPV 9.4 fL (7.4-10.4) 04/24/23 13:08 Neut % (Auto) 74.7 % 04/24/23 13:08 Lymph % (Auto) 19.0 % 04/24/23 13:08 [place] % (Auto) 4.7 % 04/24/23 13:08 Eos % (Auto) 0.5 % 04/24/23 13:08 Baso % (Auto) 0.3 % 04/24/23 13:08 Neut # (Auto) 14.79 10^3/uL (1.8-7.7) H 04/24/23 13:08 Lymph # (Auto) 3.8 10^3/uL (0.8-4.8) 04/24/23 13:08 [place] # (Auto) 0.9 10^3/uL (0.2-0.9) 04/24/23 13:08 Eos # (Auto) 0.1 10^3/uL (0.0-0.8) 04/24/23 13:08 Baso # (Auto) 0.1 10^3/uL (0.0-0.1) 04/24/23 13:08 Nucleated RBC % (auto) 0 % 04/24/23 13:08 Nucleated RBCs # 0.0 /100WBC 04/24/23 13:08 Sodium 133 mmol/L (136-145) L 04/24/23 13:08 Potassium 4.5 mmol/L (3.5-5.1) 04/24/23 13:08 Chloride 93 mmol/L (98-107) L 04/24/23 13:08 Carbon Dioxide 30 mmol/L (22-29) H 04/24/23 13:08 Anion Gap 14.5 (5-19) 04/24/23 13:08 BUN 32 mg/dL (8-23) H 04/24/23 13:08 Creatinine 1.1 mg/dL (0.5-0.9) H 04/24/23 13:08 GFR Calculation Not Reportable 04/24/23 13:08 Glucose 129 mg/dL (65-115) H 04/24/23 13:08 Calculated Osmolality 285 mOsm/kg (285-295) 04/24/23 13:08 Calcium 10.0 mg/dL (8.5-10.5) 04/24/23 13:08 Total Bilirubin 0.8 mg/dL (0.15-1.2) 04/24/23 13:08 AST 17 U/L (0-32) 04/24/23 13:08 ALT 16 U/L (0-33) 04/24/23 13:08 Alkaline Phosphatase 62 U/L (35-105) 04/24/23 13:08 Total Protein 6.9 g/dL (6.6-8.7) 04/24/23 13:08 Albumin 3.6 g/dL (3.5-5.2) 04/24/23 13:08 Globulin 3.3 g/dL (1.3-4.6) 04/24/23 13:08 Urine Color Yellow (Yellow) 04/24/23 14:50 Urine Appearance Clear (CLEAR) 04/24/23 14:50 Urine pH 7 (5-7) 04/24/23 14:50 Ur Specific [place] 1.015 (1.005-1.030) 04/24/23 14:50 Urine Protein Neg (Negative) 04/24/23 14:50 Urine Glucose (UA) Norm (Normal) 04/24/23 14:50 Urine Ketones Negative (Negative) 04/24/23 14:50 Urine Blood Neg (Negative) 04/24/23 14:50 Urine Nitrate Negative (Negative) 04/24/23 14:50 Urine Bilirubin Neg (Negative) 04/24/23 14:50 Urine Urobilinogen Norm mg/dL (Negative) 04/24/23 14:50 Ur Leukocyte Esterase Negative (Negative) 04/24/23 14:50 Discharge Plan Discharge Patient Disposition: Home Clinical Impression: Syncope due to orthostatic hypotension Condition: Stable Prescriptions: No Action hydrocodone-acetaminophen 5-325 mg tablet 1 tab PO Q6H PRN (Reason: Pain) fluticasone propionate [Flonase Allergy Relief] 50 mcg/actuation spray,suspension 2 spray intranasal DAILY PRN (Reason: Allergy Symptoms) Rx Instructions: administer into each nostril metoprolol tartrate 25 mg tablet 25 mg PO BID@0900,2100 Qty: 180 3RF albuterol sulfate 90 mcg/actuation HFA aerosol inhaler 2 puff INHALATION Q4H PRN (Reason: Shortness Of Breath) tramadol 50 mg tablet 50 mg PO Q8H PRN (Reason: Pain) cetirizine 10 mg tablet 10 mg PO BEDTIME acetaminophen 500 mg Tablet 500 mg PO Q6H PRN (Reason: Pain) montelukast 10 mg tablet 10 mg PO DAILY PRN (Reason: Allergy Symptoms) lorazepam 1 mg tablet 0.5 - 1 mg PO DAILY PRN (Reason: Anxiety) losartan 50 mg Tablet 25 mg PO DAILY 30 Days Qty: 30 1RF Hold Instructions: Resume on 04/17/23. atorvastatin 40 mg Tablet 40 mg PO BEDTIME 30 Days Qty: 30 1RF prednisone 5 mg tablet 5 mg PO DAILY@09 Hold Instructions: Resume on 04/22/23. clopidogrel 75 mg tablet 75 mg PO DAILY@09 aspirin 81 mg Tablet,Delayed Release (Dr/Ec) 81 mg PO DAILY@09 spironolactone 25 mg tablet 25 mg PO DAILY@09 Hold Instructions: Resume on 04/17/23. nitroglycerin [Nitrostat] 0.4 mg Tablet, Sublingual 0.4 mg SUBLINGUAL Q5M PRN (Reason: Chest Pain) Rx Instructions: do not exceed 3 doses per episode furosemide 20 mg tablet 20 mg PO DAILY@09 Hold Instructions: Resume on 04/13/23. Trelegy Ellipta 100-62.5-25 mcg blister with device 1 inh inhalation DAILY PRN (Reason: unknown) Zithromax Z-Elliot 250 mg Tablet See Rx Instructions .ROUTE .COMPLEX Rx Instructions: 500 mg orally ON DAY 1, THEN 1 TABLET DAILY FOR 5 DAYS Discharge Orders: Discharge ED (Routine); Ordered 04/24/23 Ordered By: Rodo Alexander Referrals: Eber Albarran MD [Primary Care Provider] - Discharge Diet: Usual diet Discharge Activity: Increase activity as tolerated Patient Instructions: Opioid Safety, Pain Management Coding Level of Care Code ED Condenser Tube Tender for Keke Alvarez
[2023-04-24 13:33] VITALS: BP 101/61
[2023-04-24 13:36] LABS: Alanine Aminotransferase 16 U/L (0-33); Albumin Level 3.6 g/dL (3.5-5.2); Alkaline Phosphatase 62 U/L (35-105); Anion Gap 14.5 (5-19); Aspartate Amino Transferase 17 U/L (0-32); Blood Urea Nitrogen 32 mg/dL (8-23); Carbon Dioxide 30 mmol/L (22-29); Chloride 93 mmol/L (98-107); Globulin 3.3 g/dL (1.3-4.6); Glucose 129 mg/dL (65-115); Osmolality Calculated 285 mOsm/kg (285-295); Potassium 4.5 mmol/L (3.5-5.1); Sodium 133 mmol/L (136-145); Total Bilirubin 0.8 mg/dL (0.15-1.2); Total Protein 6.9 g/dL (6.6-8.7)
--- NOTE | 2023-04-24 13:45 | ECG_ITS ---
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 Measurements Intervals [place] Rate: 75 P: 56 MD: 192 QRS: 25 QRSD: 81 T: 31 QT: 391 QTc: 439 Interpretive Statements SINUS RHYTHM WITH OCCASIONAL VENTRICULAR PREMATURE COMPLEXES LOW QRS VOLTAGE IN PRECORDIAL LEADS [QRS DEFLECTION < 1.0 mV IN CHEST LEADS] POSSIBLE ANTERIOR MYOCARDIAL INFARCTION , PROBABLY OLD [30 ms Q WAVE IN V3/V4, OR R < 0.2 mV IN V4] Compared to ECG 04/05/2023 00:28:29 No significant changes Electronically Signed On 04-24-2023 20:29:36 CDT by Isabel Hardwick M.D. [id number]
[2023-04-24 13:58] VITALS: BP 104/70; BP 105/62; BP 99/60; PULSE 68; PULSE 76; PULSE 80
[2023-04-24 14:58] LABS: Add Urine Microscopic? NO; Charge for UA Resulting for Rev
[2023-04-24 15:01] LABS: Bilirubin Urine Neg (Negative); Blood Urine Neg (Negative); Glucose Urine UA Norm (Normal); Ketones Urine Negative (Negative); Leukocyte Esterase Urine Negative (Negative); Nitrate Urine Negative (Negative); Protein Urine Neg (Negative); Specific Gravity, Urine 1.015 (1.005-1.030); Urine Appearance Clear (CLEAR); Urine Color Yellow (Yellow); Urobilinogen Urine Norm (Negative); pH Urine 7 (5-7)
[2023-04-24] MEDS: sodium chloride 0.9% 500 ML 999 ML IV (15:11)
[2023-04-24] MEDS: sodium chloride 0.9% 1,000 ML 999 ML IV (15:11)
[2023-04-24 15:41] VITALS: BP 90/59; O2SAT 100
[2023-04-24 16:49] VITALS: BP 90/59; O2SAT 100
== END 2023-04-24 17:00 | disposition home or self-care (01) ==
PROVIDERS: Emergency Provider Family Medicine; PCP Family Medicine
DX: R55 Syncope and collapse (principal); J43.9 Emphysema, unspecified; I42.9 Cardiomyopathy, unspecified; I25.10 Atherosclerotic heart disease of native coronary artery without angina pectoris; Z79.899 Other long term (current) drug therapy; Z79.82 Long term (current) use of aspirin; Z86.16 Personal history of COVID-19; Z87.891 Personal history of nicotine dependence
CPT/HCPCS: 71045; 80053; 81003; 85025; 93005; 99285; J7030; J7040

== ENCOUNTER → 2023-05-28 11:31 | Outpatient (BNVA) | payer MEDICARE, SELFPAY | PROVIDERS: PCP Family Medicine; Visit Provider Internal Medicine Cardiovascular Disease | DX: I42.9 Cardiomyopathy, unspecified (principal); J43.9 Emphysema, unspecified; J84.10 Pulmonary fibrosis, unspecified; I27.20 Pulmonary hypertension, unspecified; I25.10 Atherosclerotic heart disease of native coronary artery without angina pectoris; R42 Dizziness and giddiness; Z87.891 Personal history of nicotine dependence; Z79.82 Long term (current) use of aspirin; R06.02 Shortness of breath | CPT/HCPCS: 36415; 80048; 83880; 99214 ==

== ENCOUNTER → 2023-06-10 13:08 | Outpatient (BNVA) | payer MEDICARE, SELFPAY | PROVIDERS: PCP Family Medicine; Visit Provider Internal Medicine Pulmonary Disease | DX: J43.9 Emphysema, unspecified (principal); J84.10 Pulmonary fibrosis, unspecified; J47.9 Bronchiectasis, uncomplicated; R13.10 Dysphagia, unspecified; I25.118 Atherosclerotic heart disease of native coronary artery with other forms of angina pectoris; I27.20 Pulmonary hypertension, unspecified; Z87.891 Personal history of nicotine dependence; Z87.01 Personal history of pneumonia (recurrent); Z99.81 Dependence on supplemental oxygen | CPT/HCPCS: 99214 ==

== ENCOUNTER → 2023-06-13 11:56 | Outpatient (BNVA) | payer MEDICARE, SELFPAY | PROVIDERS: PCP Family Medicine; Visit Provider Internal Medicine Cardiovascular Disease | DX: I25.10 Atherosclerotic heart disease of native coronary artery without angina pectoris (principal); R42 Dizziness and giddiness; J43.9 Emphysema, unspecified; J84.10 Pulmonary fibrosis, unspecified; I25.5 Ischemic cardiomyopathy; I27.20 Pulmonary hypertension, unspecified; J96.01 Acute respiratory failure with hypoxia; J18.9 Pneumonia, unspecified organism; Z87.891 Personal history of nicotine dependence; Z87.898 Personal history of other specified conditions | CPT/HCPCS: 99213 ==

== ENCOUNTER 2023-06-25 13:25 | Outpatient (CLI) | payer MEDICARE, SELFPAY ==
--- NOTE | 2023-06-25 13:30 | CT_ITS ---
WS: [id number] CT chest wo con [id number] HISTORY: to check for resolution of pneumonia TECHNIQUE: Axial imaging performed through the thorax. Coronal and sagittal reformats are submitted. All CT scans at [facility] use at least one of these dose optimization techniques: automated exposure control; mA and/or kV adjustment per patient size (includes targeted exams where dose is mat ched to clinical indication); or iterative reconstruction. CONTRAST: None DLP: 169.41 mGy.cm COMPARISON: 04/04/2023, 03/04/2023 Lungs and central airway: Severe changes of centrilobular emphysema. Some of the areas of consolidati on throughout both lungs have improved since 04/04/2023. There is still very dense consolidation in the RIGHT lower lobe which appears chronic. There is marked honeycombing with bronchiectasis. Honeycombi ng and bronchiectasis are predominantly in the lower lobes but do extend into the upper lobes. Pleura: Normal. No pleural effusion. Heart and pericardium: Normal size heart with no pericardial effusion. Mediastinum and darlene: No new or enlarging lymph nodes. Vessels: Extensive atherosclerosis aorta. Mildly prominent pulmonary artery. Advanced coronary artery calcification. Chest wall and lower neck: No soft tissue masses. Upper abdomen: Prior cholecystectomy. Suprarenal aortic calcification. Splenic artery heavy calcifica tion. Atrophied pancreas. Osseous structures: Increase in thoracic kyphosis with osteopenia. T12 severe compression fracture wi th kyphoplasty. Retropulsion by 5 mm of the posterior superior endplate. IMPRESSION: 1. Mild improvement in the acute on chronic appearing airspace disease since 04/04/2023. 2. There are still areas of dense consolidation very similar to 03/04/2023 CT. Findings of severe fibro sis including honeycombing and traction bronchiectasis. 3. Extensive atherosclerosis thoracic and suprarenal abdominal aorta. Extensive coronary artery calci fication. 4. Prior cholecystectomy.
== END 2023-06-25 13:26 | disposition home or self-care (01) ==
PROVIDERS: PCP Family Medicine; Visit Provider Internal Medicine Pulmonary Disease
DX: J18.9 Pneumonia, unspecified organism (principal); J84.10 Pulmonary fibrosis, unspecified; J47.9 Bronchiectasis, uncomplicated
CPT/HCPCS: 71250

== ENCOUNTER 2023-07-29 16:22 | Emergency (ER) | payer MEDICARE, SELFPAY ==
[2023-07-29 16:24] VITALS: BMI 16.5
[2023-07-29 16:26] VITALS: BP 103/68; PULSE 118; RESP 21; TEMP 37.2; O2SAT 94
[2023-07-29 16:33] VITALS: O2SAT 89
--- NOTE | 2023-07-29 16:36 | XRR_ITS ---
PROCEDURE INFORMATION: Exam: XR Chest Exam date and time: 07/29/2023 5:15 PM Age: 83 years old Clinical indication: Dyspnea; Prior surgery; Surgery date: 6+ months; Surgery type: Back TECHNIQUE: Imaging protocol: Radiologic exam of the chest. Views: 1 view. COMPARISON: CT chest wo con [id number] 06/25/2023 1:42 PM FINDINGS: Lungs: Severe centrilobular emphysema noted. Increased density noted at the right lung base, unchanged from 06/25/2023, likely representing fibrosis. Right lower lobe infiltrate/pneumonia is not definitely excluded. Pleural spaces: No pleural effusion. No pneumothorax. Heart/Mediastinum: No cardiomegaly. Bones/joints: Osteopenia noted. Degenerative thoracic spine changes are noted. There is an old compression fracture demonstrating kyphoplasty changes. XR/XR chest 1V portable [id number] IMPRESSION: 1. Severe centrilobular emphysema noted. 2. Increased density noted at the right lung base, unchanged from 06/25/2023, likely representing fibrosis. Right lower lobe infiltrate/pneumonia is not definitely excluded. 3. There is no interval change from the prior examination.
--- NOTE | 2023-07-29 16:36 | ECG_ITS ---
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 Measurements Intervals [place] Rate: 109 P: 54 AL: 190 QRS: 10 QRSD: 74 T: 48 QT: 299 QTc: 403 Interpretive Statements SINUS TACHYCARDIA LOW QRS VOLTAGE IN PRECORDIAL LEADS [QRS DEFLECTION < 1.0 mV IN CHEST LEADS] ABNORMAL RHYTHM ECG Compared to ECG 04/24/2023 13:45:09 Sinus rhythm no longer present Ventricular premature complex(es) no longer present Myocardial infarct finding no longer present Electronically Signed On 07-29-2023 18:19:04 CDT by Juan Dugan M.D. [email or web address]/store/[id number]
--- NOTE | 2023-07-29 16:38 | W.ED.SOB ---
HPI - SOB/Dyspnea General: Chief Complaint: Shortness of Breath/Dyspnea Stated Complaint: sob Time Seen by Provider: 07/29/23 16:26 History of Present Illness: HPI Narrative: patient presents to the ER with complaints of worsening shortness of breath since this morning. Patient also feels weak when trying to ambulate. Patient has a history of chronic pneumonia/fibrosis, history of A-fib. Review of Systems General: Reports: 10 or more systems reviewed and unremarkable except in HPI and below PFSH ED PFSH: Medical History Allergic rhinitis Atherosclerotic heart disease of [place] coronary artery with other forms of angina pectoris Cardiomyopathy COVID Ischemic cardiomyopathy Pneumonia Pulmonary emphysema with fibrosis of lung Severe tricuspid regurgitation Traumatic compression fracture of T12 thoracic vertebra Surgical History H/O section History of abdominal surgery Family History Father Myocardial infarction Family/Other Breast cancer Social History Smoking and tobacco/nicotine status: former use of tobacco/nicotine Quit status (tobacco/nicotine): has quit using Year quit tobacco: 50-60 years ago Alcohol intake: never Substance/Drug Use: never Physical Exam Const: COMMON NORMALS: no acute distress, average body habitus, patient oriented x3, no limitations, healthy appearing, alert and well nourished HENMT: COMMON NORMALS: normocephalic, atraumatic, hearing grossly normal bilaterally, external ears normal, Normal external nose present, moist oral mucous membranes and oropharynx normal HEAD & SCALP: normocephalic and atraumatic NOSE: Normal external nose present EXTERNAL EAR: Yes external ears normal Neck/C-Spine: COMMON NORMALS: no JVD Chest: COMMONS NORMALS: normal inspection of the chest and normal palpation of entire chest wall Resp: COMMON NORMALS: normal respiratory effort, No retractions and No use of accessory muscles; negative for clear to auscultation bilaterally ( Occasional expiratory wheeze) AUSCULTATION: not clear to auscultation bilaterally ( Occasional expiratory wheeze) Cardio: COMMON NORMALS: no JVD, regular rate, regular rhythm, S1 normal heart sound present, S2 normal heart sound present, No gallops present (Cardio), No clicks present (Cardio), No murmurs present (Cardio) and No rub (Cardio) RATE: regular rate RHYTHM: regular rhythm HEART SOUNDS: S1 normal heart sound present and S2 normal heart sound present GI: COMMON NORMALS: Normal to inspection, nondistended, normoactive bowel sounds present, Soft to palpation, non-tender, No hepatosplenomegaly present and no masses PALPATION: Yes Soft to palpation and Yes No hepatosplenomegaly present : COMMON NORMALS: Yes no CVA tenderness BLADDER/KIDNEY EXAM: Yes no CVA tenderness Back/Pelvis: COMMON NORMALS: no CVA tenderness Neuro: COMMON NORMALS: patient oriented x3 SENSORIUM/ORIENTATION: Yes alert Course Vital Signs: Vital signs: Vital Signs Temperature 98.9 F 07/29/23 16:26 Pulse Rate 123 H 07/29/23 17:08 Respiratory Rate 18 07/29/23 17:05 Blood Pressure 103/68 07/29/23 16:26 Pulse Oximetry 95 07/29/23 17:05 Oxygen Delivery Me thod Nasal Cannula 07/29/23 17:05 Oxygen Flow Rate 2 07/29/23 17:05 MDM - SOB/Dyspnea Medical Decision Making During the patient's ER stay while waiting for CT scan patient said she was getting ready to leave and she wanted to go home and take her home pain meds rather than stay here any longer. Patient will was instructed that we have meds here we can be give her but she is still insistent on going home. Patient is alert oriented comfortable with signing out AMA and knows the risks as they were explained to her in detail. Differential Diagnosis Likely acute exacerbation of chronic obstructive airways disease; Unlikely congestive heart failure, community acquired pneumonia, asthma with exacerbation or pulmonary embolism Medical Records I reviewed the patient's medical records. Lab Data I reviewed the patient's lab results. 07/29/23 16:53 07/29/23 16:53 Labs/Radiology: Radiology Impressions Chest X-Ray 07/29/23 16:36 IMPRESSION: 1. Severe centrilobular emphysema noted. 2. Increased density noted at the right lung base, unchanged from 06/25/2023, likely representing fibrosis. Right lower lobe infiltrate/pneumonia is not definitely excluded. 3. There is no interval change from the prior examination. Laboratory Results WBC 17.26 10^3/uL (3.29-11.43) H 07/29/23 16:53 RBC 4.12 10^6/uL (3.85-5.65) 07/29/23 16:53 Hgb 12.60 g/dL (11.27-16.99) 07/29/23 16:53 Hct 38.5 % (36-47) 07/29/23 16:53 MCV 93.4 fl (85-98) 07/29/23 16:53 MCH 30.6 pg (27-33) 07/29/23 16:53 MCHC 32.7 g/dL (30-55) 07/29/23 16:53 RDW 13.4 % (12.1-15.1) 07/29/23 16:53 Plt Count 375 10^3/cmm (157-399) 07/29/23 16:53 MPV 9.3 fL (7.4-10.4) 07/29/23 16:53 Neut % (Auto) 69.7 % 07/29/23 16:53 Lymph % (Auto) 20.0 % 07/29/23 16:53 [place] % (Auto) 8.6 % 07/29/23 16:53 Eos % (Auto) 0.7 % 07/29/23 16:53 Baso % (Auto) 0.6 % 07/29/23 16:53 Neut # (Auto) 12.03 10^3/uL (1.8-7.7) H 07/29/23 16:53 Lymph # (Auto) 3.5 10^3/uL (0.8-4.8) 07/29/23 16:53 [place] # (Auto) 1.5 10^3/uL (0.2-0.9) H 07/29/23 16:53 Eos # (Auto) 0.1 10^3/uL (0.0-0.8) 07/29/23 16:53 Baso # (Auto) 0.1 10^3/uL (0.0-0.1) 07/29/23 16:53 Nucleated RBC % (auto) 0 % 07/29/23 16:53 Nucleated RBCs # 0.0 /100WBC 07/29/23 16:53 Sodium 132 mmol/L (136-145) L 07/29/23 16:53 Potassium 4.2 mmol/L (3.5-5.1) 07/29/23 16:53 Chloride 94 mmol/L (98-107) L 07/29/23 16:53 Carbon Dioxide 25 mmol/L (22-29) 07/29/23 16:53 Anion Gap 17.2 (5-19) 07/29/23 16:53 BUN 30 mg/dL (8-23) H 07/29/23 16:53 Creatinine 1.1 mg/dL (0.5-0.9) H 07/29/23 16:53 GFR Calculation Not Reportable 07/29/23 16:53 Glucose 101 mg/dL (65-115) 07/29/23 16:53 Calculated Osmolality 280 mOsm/kg (285-295) L 07/29/23 16:53 Calcium 10.1 mg/dL (8.5-10.5) 07/29/23 16:53 Magnesium 1.8 mg/dL (1.7-2.3) 07/29/23 16:53 Total Bilirubin 0.9 mg/dL (0.15-1.2) 07/29/23 16:53 AST 18 U/L (0-32) 07/29/23 16:53 ALT 8 U/L (0-33) 07/29/23 16:53 Alkaline Phosphatase 55 U/L (35-105) 07/29/23 16:53 NT-Pro-B Natriuret Pep 765 pg/mL (0-450) H 07/29/23 16:53 Total Protein 8.0 g/dL (6.6-8.7) 07/29/23 16:53 Albumin 3.8 g/dL (3.5-5.2) 07/29/23 16:53 Globulin 4.2 g/dL (1.3-4.6) 07/29/23 16:53 All radiology interpretation(s) finalized by discharge EKG Data EKG 1: I personally reviewed and interpreted this EKG as follows: EKG Interpretation Date: 07/29/23 EKG interpretation time: 16:40 Prior EKG tracings: not available for review Interpretation: EKG showed ventricular rate 109 bpm, OR interval 190, QRS duration 74, QTc of 363, sinus tachycardia, no ST-T wave changes Discharge Plan Discharge Patient Disposition: Home Clinical Impression: Left against medical advice Condition: Stable Prescriptions: No Action (DME) [place] See Rx Instructions .Route .MEDSUPPLY Qty: 1 0RF Rx Instructions: As directed guaifenesin [Mucinex] 600 mg tablet extended release 12hr 600 mg PO Q12H PRN (Reason: congestion) Qty: 60 6RF levofloxacin 500 mg tablet 500 mg PO DAILY Qty: 7 0RF prednisone 5 mg tablet 5 mg PO DAILY Hold Instructions: Resume on 04/22/23. tiotropium bromide [Spiriva with HandiHaler] 18 mcg capsule, w/inhalation device 1 cap inhalation DAILY Qty: 60 6RF Rx Instructions: puncture 1 cap using device; one dose = 2 inhalations fluticasone propionate [Flonase Allergy Relief] 50 mcg/actuation spray,suspension 2 spray intranasal DAILY PRN (Reason: Allergy Symptoms) Rx Instructions: administer into each nostril metoprolol tartrate 25 mg tablet 25 mg PO BID@0900,2100 Qty: 180 3RF sacubitril-valsartan 24-26 mg tablet 0.5 tab PO BID Qty: 180 0RF albuterol sulfate 90 mcg/actuation HFA aerosol inhaler 2 puff INHALATION Q4H PRN (Reason: Shortness Of Breath) tramadol 50 mg tablet 50 mg PO Q8H PRN (Reason: Pain) acetaminophen 500 mg Tablet 500 mg PO Q6H PRN (Reason: Pain) lorazepam 1 mg tablet 0.5 - 1 mg PO DAILY PRN (Reason: Anxiety) atorvastatin 40 mg Tablet 40 mg PO BEDTIME 30 Days Qty: 30 1RF cetirizine 10 mg tablet 10 mg PO BEDTIME PRN (Reason: allergy symptoms) clopidogrel 75 mg tablet 75 mg PO DAILY@09 aspirin 81 mg Tablet,Delayed Release (Dr/Ec) 81 mg PO DAILY@09 spironolactone 25 mg tablet 25 mg PO DAILY@09 Hold Instructions: Resume on 04/17/23. nitroglycerin [Nitrostat] 0.4 mg Tablet, Sublingual 0.4 mg SUBLINGUAL Q5M PRN (Reason: Chest Pain) Rx Instructions: do not exceed 3 doses per episode furosemide 20 mg tablet 20 mg PO DAILY Discharge Orders: Discharge ED (Routine); Ordered 07/29/23 Ordered By: Bhupinder Muñoz Referrals: Eber Albarran MD [Primary Care Provider] - 1-3 days Patient Instructions: Against Medical Advice (ED) Activity Restrictions/Additional Instructions: please call your family physician tomorrow to schedule follow-up at next available. If symptoms worsen between now and then please feel free to return to the ER for further evaluation and treatment. Coding Level of Care Code ED Last Sawyer for Keke Alvarez
[2023-07-29 16:58] LABS: Basophils # 0.1 10^3/uL (0.0-0.1); Basophils % 0.6 %; Eosinophils # 0.1 10^3/uL (0.0-0.8); Eosinophils % 0.7 %; Hematocrit 38.5 % (36-47); Lymphocytes # 3.5 10^3/uL (0.8-4.8); Mean Corpuscular HGB Conc 32.7 g/dL (30-55); Mean Corpuscular Hemoglobin 30.6 pg (27-33); Mean Corpuscular Volume 93.4 fl (85-98); Mean Platelet Volume 9.3 fL (7.4-10.4); Monocytes # 1.5 10^3/uL (0.2-0.9); Monocytes % 8.6 %; Neutrophils # 12.03 10^3/uL (1.8-7.7); Neutrophils % 69.7 %; Nucleated Red Blood Cells % 0 %; Platelet Count 375 10^3/cmm (157-399); Red Blood Count 4.12 10^6/uL (3.85-5.65); Red Cell Distribution Width 13.4 % (12.1-15.1); White Blood Count 17.26 10^3/uL (3.29-11.43)
[2023-07-29 17:05] VITALS: PULSE 122; RESP 18; O2SAT 95
[2023-07-29] MEDS: ipratropium-albuterol 3 mL Neb INHALATION (17:05)
[2023-07-29 17:08] VITALS: PULSE 123
[2023-07-29 17:26] LABS: Alanine Aminotransferase 8 U/L (0-33); Albumin Level 3.8 g/dL (3.5-5.2); Alkaline Phosphatase 55 U/L (35-105); Anion Gap 17.2 (5-19); Aspartate Amino Transferase 18 U/L (0-32); Blood Urea Nitrogen 30 mg/dL (8-23); Calcium 10.1 mg/dL (8.5-10.5); Carbon Dioxide 25 mmol/L (22-29); Chloride 94 mmol/L (98-107); Globulin 4.2 g/dL (1.3-4.6); Glucose 101 mg/dL (65-115); Magnesium 1.8 mg/dL (1.7-2.3); NT Pro B Type Natriuretic Pept 765 pg/mL (0-450); Osmolality Calculated 280 mOsm/kg (285-295); Potassium 4.2 mmol/L (3.5-5.1); Sodium 132 mmol/L (136-145); Total Bilirubin 0.9 mg/dL (0.15-1.2)
== END 2023-07-29 18:57 | disposition home or self-care (01) ==
PROVIDERS: Emergency Provider Emergency Medicine; PCP Family Medicine
DX: R06.02 Shortness of breath (principal); Z87.891 Personal history of nicotine dependence; I25.10 Atherosclerotic heart disease of native coronary artery without angina pectoris; J43.9 Emphysema, unspecified; Z53.21 Procedure and treatment not carried out due to patient leaving prior to being seen by health care provider
CPT/HCPCS: 36415; 71045; 80053; 83735; 83880; 85025; 93005; 94640; 99285

== ENCOUNTER 2023-10-08 13:28 | Observation (INO) | payer MEDICARE, SELFPAY ==
[2023-10-08] VITALS (7 sets, daily range): BP systolic 81–107; BP diastolic 55–90; PULSE 83–117; RESP 15–20; TEMP 36.6–37.6; O2SAT 94–97; BMI 17.6
--- NOTE | 2023-10-08 14:04 | CT_ITS ---
WS: [id number] CT THORACIC SPINE TECHNIQUE: Noncontrast CT of the thoracic spine with coronal and sagittal reformatted images. CLINICAL INFORMATION: ttp t spine after fall, history of compression fractures, COMPARISON: MRI 01/22/2023 DLP: 333.[address] scans at [facility] use at least one of these dose optimization techniques: automated e xposure control; mA and/or kV adjustment per patient size (includes targeted exams where dose is matc hed to clinical indication); or iterative reconstruction. FINDINGS: Moderate thoracic kyphosis. Acute appearing slightly comminuted biconcave compression T5 vertebral nedra dy with loss of approximately 40% vertebral body height with anterior wedging. Minimal retropulsion o f the posterior inferior cortex with slight effacement of the ventral thecal sac. No high-grade centr al canal stenosis. Chronic appearing compression fracture T12 with vertebroplasty changes. Retropulsion of the posterior superior cortex with mild central canal stenosis appears progressed compared to 01/22/2023. Compress ion fracture is slightly progressed at this level. Aortic calcification. Partially visualized aberrant RIGHT subclavian artery. Tiny esophageal hernia. Adrenal glands appear normal. Advanced chronic emphysematous changes with honeycombing and traction bronchiectasis. Airspace opacif ication in the RIGHT greater than LEFT lower lobes with small RIGHT pleural effusion. IMPRESSION: 1. Moderate thoracic kyphosis. 2. Acute slightly comminuted biconcave compression fracture with anterior wedging at T7 with loss of approximately 40% vertebral body height. Minimal retropulsion of the posterior inferior cortex eccen tric to the LEFT with slight effacement of the ventral thecal sac. No significant central canal steno sis. 3. Chronic compression T12 vertebral body with vertebroplasty changes. Chronic retropulsion the post erior superior cortex with mild central canal stenosis. This is slightly progressed compared to previ ous. 4. Advanced chronic emphysematous changes with fibrosis. Airspace infiltrates in the RIGHT greater t humphrey LEFT lower lobes similar to the prior studies. Similar-appearing honeycombing and traction bronch iectasis. 5. Small RIGHT pleural effusion.
--- NOTE | 2023-10-08 14:10 | XR_ITS ---
WS: [id number] PORTABLE CHEST HISTORY: weakness, low grade fever COMPARISON: 07/29/2023 Lung volumes are decreased. Pulmonary fibrotic changes appear more prominent as compared to the most recent study. Most significant increase in opacification is in the RIGHT lower lobe. No pleural effus ion or pneumothorax. Cardiac size: Normal. Mediastinum/Aorta: Similar appearance to the mediastinum as compared to the prior study. No osseous abnormality seen. IMPRESSION: 1. Advanced pulmonary fibrosis with low lung volumes. 2. Slight increase within consolidation at the RIGHT lung base. This may be pneumonia superimposed on pulmonary fibrosis or progression of known fibrosis.
--- NOTE | 2023-10-08 14:10 | W.ED.BACK ---
HPI - Back Pain/Injury General: Chief Complaint: Back Pain/Injury Stated Complaint: Post Fall Rib, Back Pain Time Seen by Provider: 10/08/23 13:45 History of Present Illness: 83-year-old female with a history of ambulatory dysfunction who uses alternating walker and cane presents to the emergency department along with daughter. She fell 2 nights ago in the middle of the night. Patient does not remember it. She thinks she was may be getting up to go to the bathroom. Patient has pain in the midthoracic region as the chief complaint. She has a history of compression fractures. She has a very poor appetite at baseline and chronic malnutrition. She weighs 40 kg. Her BMI is less than 17. She was noted to have some tachycardia and low-grade temperature on arrival. Patient was unaware of this. She denies any cough, chest pain, wounds, rashes, abdominal pain, vomiting, diarrhea, URI symptoms, dysuria. She has not had any altered mental status or signs of head injury. She has not had any headache or neck ache. Associated symptoms: Deny abdominal pain, chills, difficulty walking, dysuria, fever(s), nausea, syncope or vomiting Review of Systems General: Reports: 10 or more systems reviewed and unremarkable except in HPI and below Narrative: Endorses chronic pain all over her body for years. Today her biggest concern is pain in the mid to upper thoracic region. Const: Denies: fever(s), chills or body aches Eyes: Denies: change in vision ENMT: Denies: throat pain Card: Denies: chest pain, edema or syncope Resp: Denies: dyspnea or productive cough GI: Denies: abdominal pain, nausea, vomiting or diarrhea : Denies: flank pain, dysuria or urinary frequency Musc: Denies: neck pain or extremity swelling Skin/Breast: Denies: rash or erythema Neuro: Denies: headache(s), numbness in extremities, lack of coordination or difficulty walking PFSH ED PFSH: Medical History Allergic rhinitis Atherosclerotic heart disease of [place] coronary artery with other forms of angina pectoris Cardiomyopathy COVID Ischemic cardiomyopathy Pneumonia Pulmonary emphysema with fibrosis of lung Severe tricuspid regurgitation Traumatic compression fracture of T12 thoracic vertebra Surgical History H/O section History of abdominal surgery Family History Father Myocardial infarction Family/Other Breast cancer Social History Smoking and tobacco/nicotine status: former use of tobacco/nicotine Quit status (tobacco/nicotine): has quit using Year quit tobacco: 50-60 years ago Alcohol intake: never Substance/Drug Use: never Physical Exam Narrative: EXAM NARRATIVE: Patient is awake, alert, and is able to answer all my questions. She has noted to be slightly tachycardic. Her work of breathing is probably at her baseline. She has a history of pulmonary fibrosis. Respiratory rate 18-20. She does have JVD on examination. She has minimal rales but otherwise clear lungs. She does not have any signs of trauma to the head and no tenderness of the cervical spine. Active range of motion of the cervical spine does not cause any pain. She does have tenderness in the thoracic region in the midline in the middle to upper thoracic spine. The lower thoracic spine and lumbar region are nontender. She does have some kyphosis. She has decreased skin turgor. Radial pulses are 2+. She appears underweight and deconditioned. Const: COMMON NORMALS: no limitations and alert EXAM LIMITATIONS: no altered mental status HENMT: COMMON NORMALS: normocephalic, atraumatic and external ears normal HEAD & SCALP: normocephalic and atraumatic EXTERNAL EAR: Yes external ears normal MOUTH: no muffled voice Eye: COMMON NORMALS: EOMs intact bilaterally, conjunctivae normal and no scleral icterus CONJUNCTIVA: Yes conjunctivae normal Neck/C-Spine: GENERAL: Yes normal visual inspection and Yes trachea midline Resp: COMMON NORMALS: normal respiratory effort, No use of accessory muscles and clear to auscultation bilaterally AUSCULTATION: clear to auscultation bilaterally Cardio: COMMON NORMALS: regular rhythm RHYTHM: regular rhythm GI: COMMON NORMALS: Soft to palpation and non-tender PALPATION: Yes Soft to palpation and No Guarding due to palpation present (GI) Extremity: OTHER: Passive range of motion of all the extremities does not reveal any pain, palpation is negative for tenderness, no signs of deformities or injuries. She does have significant loss of muscle bulk. Neuro: COMMON NORMALS: moves all extremities, no focal motor deficits and no sensory deficits noted SENSORIUM/ORIENTATION: Yes alert SPEECH: speech normal Psych: COMMON NORMALS: mental status grossly normal, Normal thought process present, cooperative, normal affect and speech normal SPEECH: Yes normal speech THOUGHT PROCESS: Normal thought process present Skin: COMMON NORMALS: no jaundice Course Vital Signs: Vital signs: Vital Signs Temperature 99.7 F H 10/08/23 13:52 Pulse Rate 116 H 10/08/23 15:45 Respiratory Rate 15 10/08/23 15:45 Blood Pressure 97/55 10/08/23 15:45 Pulse Oximetry 95 10/08/23 13:52 Oxygen Delivery Me thod Room Air 10/08/23 13:52 MDM - Back Pain/Injury Medical Decision Making 83-year-old female status post fall at home. She has pain in the thoracic spine on palpation. No other signs of trauma or tenderness on examination. I checked all of her extremities, her cervical spine, her lumbar spine, her head, her ribs, clavicles, abdomen. She does have some intermittent tachycardia but has 2+ radial pulses. She is malnourished and underweight. She also was noted to have a low-grade temperature upon arrival. I am going to go ahead and do a medical workup in addition to a chest x-ray and CT of the thoracic spine. The patient is not taking any anticoagulation. She does not have any signs of head injury nor any headache or change in mental status. C-spine cleared by Nexus criteria. UPDATE: Patient has continued to be tachycardic. She is still on room air respiratory rate 20. White blood cell count is 19,000. Chest x-ray shows possible right lower infiltrate versus progression of pulmonary fibrosis. Patient has been unable to provide a urine analysis at this point. Because she continues to have tachycardia, has fever, has leukocytosis, and possible source of infection we must consider sepsis. I have ordered blood cultures and lactic acid. Lactic acid came back at 1.8. I have ordered IV antibiotics (rocephin, azithromycin). Patient was found to have a T7 fracture, mild comminution, biconcave, 40% loss of height. Discussed this case with Dr. Walsh (spine surgery). He is going to do a consult on the patient in the hospital. Patient remains neurovascularly intact and that is not an emergent consultation. Discussed with hospitalist, patient, daughter--we are going to admit for treatment of apparent sepsis, potential source lungs, UA pending, blood cultures pending. Labs 10/08/23 14:12 10/08/23 14:12 Laboratory Results WBC 19.25 10^3/uL (3.29-11.43) H 10/08/23 14:12 RBC 4.22 10^6/uL (3.85-5.65) 10/08/23 14:12 Hgb 12.90 g/dL (11.27-16.99) 10/08/23 14:12 Hct 39.5 % (36-47) 10/08/23 14:12 MCV 93.6 fl (85-98) 10/08/23 14:12 MCH 30.6 pg (27-33) 10/08/23 14:12 MCHC 32.7 g/dL (30-55) 10/08/23 14:12 RDW 15.9 % (12.1-15.1) H 10/08/23 14:12 Plt Count 424 10^3/cmm (157-399) H 10/08/23 14:12 MPV 9.5 fL (7.4-10.4) 10/08/23 14:12 Neut % (Auto) 75.8 % 10/08/23 14:12 Lymph % (Auto) 17.4 % 10/08/23 14:12 Bartholomew % (Auto) 5.2 % 10/08/23 14:12 Eos % (Auto) 0.7 % 10/08/23 14:12 Baso % (Auto) 0.4 % 10/08/23 14:12 Neut # (Auto) 14.60 10^3/uL (1.8-7.7) H 10/08/23 14:12 Lymph # (Auto) 3.3 10^3/uL (0.8-4.8) 10/08/23 14:12 Bartholomew # (Auto) 1.0 10^3/uL (0.2-0.9) H 10/08/23 14:12 Eos # (Auto) 0.1 10^3/uL (0.0-0.8) 10/08/23 14:12 Baso # (Auto) 0.1 10^3/uL (0.0-0.1) 10/08/23 14:12 Nucleated RBC % (auto) 0 % 10/08/23 14:12 Nucleated RBCs # 0.0 /100WBC 10/08/23 14:12 Sodium 133 mmol/L (136-145) L 10/08/23 14:12 Potassium 4.0 mmol/L (3.5-5.1) 10/08/23 14:12 Chloride 95 mmol/L (98-107) L 10/08/23 14:12 Carbon Dioxide 26 mmol/L (22-29) 10/08/23 14:12 Anion Gap 16.0 (5-19) 10/08/23 14:12 BUN 26 mg/dL (8-23) H 10/08/23 14:12 Creatinine 1.0 mg/dL (0.5-0.9) H 10/08/23 14:12 GFR Calculation Not Reportable 10/08/23 14:12 Glucose 94 mg/dL (65-115) 10/08/23 14:12 Calculated Osmolality 281 mOsm/kg (285-295) L 10/08/23 14:12 Lactic Acid 1.8 mmol/L (0.5-2.2) 10/08/23 14:12 Calcium 10.6 mg/dL (8.5-10.5) H 10/08/23 14:12 Magnesium 1.7 mg/dL (1.7-2.3) 10/08/23 14:12 Total Bilirubin 0.7 mg/dL (0.15-1.2) 10/08/23 14:12 AST 20 U/L (0-32) 10/08/23 14:12 ALT 10 U/L (0-33) 10/08/23 14:12 Alkaline Phosphatase 86 U/L (35-105) 10/08/23 14:12 Total Protein 7.9 g/dL (6.6-8.7) 10/08/23 14:12 Albumin 3.3 g/dL (3.5-5.2) L 10/08/23 14:12 Globulin 4.6 g/dL (1.3-4.6) 10/08/23 14:12 TSH 2.71 uIU/mL (0.27-4.20) 10/08/23 14:12 Influenza Type A Ag negative (Negative) 10/08/23 14:58 Influenza Type B Ag negative (Negative) 10/08/23 14:58 All radiology interpretation(s) finalized by discharge Discharge Plan Discharge Condition: Stable Prescriptions: No Action (DME) Acapella See Rx Instructions .Route .MEDSUPPLY Qty: 1 0RF Rx Instructions: As directed guaifenesin [Mucinex] 600 mg tablet extended release 12hr 600 mg PO Q12H PRN (Reason: congestion) Qty: 60 6RF prednisone 5 mg tablet 5 mg PO DAILY Hold Instructions: Resume on 04/22/23. tiotropium bromide [Spiriva with HandiHaler] 18 mcg capsule, w/inhalation device 1 cap inhalation DAILY Qty: 60 6RF Rx Instructions: puncture 1 cap using device; one dose = 2 inhalations fluticasone propionate [Flonase Allergy Relief] 50 mcg/actuation spray,suspension 2 spray intranasal DAILY PRN (Reason: Allergy Symptoms) Rx Instructions: administer into each nostril metoprolol tartrate 25 mg tablet 25 mg PO BID@0900,2100 Qty: 180 3RF sacubitril-valsartan 24-26 mg tablet 0.5 tab PO BID Qty: 180 0RF furosemide 20 mg tablet 20 mg PO DAILY Qty: 90 3RF albuterol sulfate 90 mcg/actuation HFA aerosol inhaler 2 puff INHALATION Q4H PRN (Reason: Shortness Of Breath) tramadol 50 mg tablet 50 mg PO Q8H PRN (Reason: Pain) benzonatate 100 mg capsule 100 mg PO TID PRN (Reason: Cough) acetaminophen 500 mg Tablet 500 mg PO Q6H PRN (Reason: Pain) lorazepam 1 mg tablet 0.5 - 1 mg PO DAILY PRN (Reason: Anxiety) atorvastatin 40 mg Tablet 40 mg PO BEDTIME 30 Days Qty: 30 1RF cetirizine 10 mg tablet 10 mg PO BEDTIME PRN (Reason: allergy symptoms) clopidogrel 75 mg tablet 75 mg PO DAILY@09 aspirin 81 mg Tablet,Delayed Release (Dr/Ec) 81 mg PO DAILY@09 spironolactone 25 mg tablet 25 mg PO DAILY@09 Hold Instructions: Resume on 04/17/23. nitroglycerin [Nitrostat] 0.4 mg Tablet, Sublingual 0.4 mg SUBLINGUAL Q5M PRN (Reason: Chest Pain) Rx Instructions: do not exceed 3 doses per episode Referrals: Eber Albarran MD [Primary Care Provider] - Coding Level of Care Code ED Information Technology Specialist for Keke Alvarez
[2023-10-08 14:20] LABS: Basophils # 0.1 10^3/uL (0.0-0.1); Basophils % 0.4 %; Eosinophils # 0.1 10^3/uL (0.0-0.8); Eosinophils % 0.7 %; Hematocrit 39.5 % (36-47); Lymphocytes # 3.3 10^3/uL (0.8-4.8); Lymphocytes % 17.4 %; Mean Corpuscular HGB Conc 32.7 g/dL (30-55); Mean Corpuscular Hemoglobin 30.6 pg (27-33); Mean Corpuscular Volume 93.6 fl (85-98); Mean Platelet Volume 9.5 fL (7.4-10.4); Monocytes % 5.2 %; Neutrophils % 75.8 %; Nucleated Red Blood Cells % 0 %; Platelet Count 424 10^3/cmm (157-399); Red Blood Count 4.22 10^6/uL (3.85-5.65); Red Cell Distribution Width 15.9 % (12.1-15.1); White Blood Count 19.25 10^3/uL (3.29-11.43)
[2023-10-08] MEDS: morphine 4 mg/mL SDV 1 mL 2 MG IVP (14:25)
[2023-10-08] MEDS: sodium chloride 0.9% 1,000 ML 999 ML IV (14:25)
[2023-10-08 14:49] LABS: Alanine Aminotransferase 10 U/L (0-33); Albumin Level 3.3 g/dL (3.5-5.2); Alkaline Phosphatase 86 U/L (35-105); Aspartate Amino Transferase 20 U/L (0-32); Blood Urea Nitrogen 26 mg/dL (8-23); Calcium 10.6 mg/dL (8.5-10.5); Carbon Dioxide 26 mmol/L (22-29); Chloride 95 mmol/L (98-107); Globulin 4.6 g/dL (1.3-4.6); Glucose 94 mg/dL (65-115); Magnesium 1.7 mg/dL (1.7-2.3); Osmolality Calculated 281 mOsm/kg (285-295); Sodium 133 mmol/L (136-145); Thyroid Stimulating Hormone 2.71 uIU/mL (0.27-4.20); Total Bilirubin 0.7 mg/dL (0.15-1.2); Total Protein 7.9 g/dL (6.6-8.7)
[2023-10-08] MEDS: acetaminophen 500 mg Tablet 1000 MG PO (14:58)
[2023-10-08 15:48] LABS: Influenza A by IFA negative (Negative); Influenza B by IFA negative (Negative)
[2023-10-08] MEDS: fentaNYL 50 mcg/mL INJ 2mL IVP (16:11)
[2023-10-08 16:46] LABS: Lactic Sepsis W/Reflex 1.8 mmol/L (0.5-2.2)
--- NOTE | 2023-10-08 17:07 | P.HP_ITS ---
Providers/Chief Complaint 2 Primary Care Provider: Eber Albarran MD Chief Complaint: Post Fall Rib, Back Pain History of Present Illness Karen Hernandes is a 83 year old female chronic hypoxia uses 3 L at baseline, chronic compression fracture, non-STEMI cardiology recommended medical management, lives with her daughter, DNR/DNI, presented for generalized weakness and recent fall. In the ER she was diagnosed with sepsis related to pneumonia she received 1 L of fluid in the ER along antibiotics, blood cultures have been taken, will request lactic acid there is acute compression of vertebral body as well Dr. Walsh's service consulted Patient is stating that she lives alone her daughter checks on her, she is not a big eater does not eat very well because of anorexia, she has not noticed any diarrhea, fever at home however stating that today left-sided chest discomfort prompted her visit to the ER, she has not noticed any diaphoresis, nausea or vomiting. At the time of evaluation no active chest pain. Review of Systems 2 Const: Reports: chills, body aches and fatigue Eyes: Denies: change in vision ENMT: Denies: throat pain Card: Reports: chest pain Resp: Reports: dyspnea GI: Denies: abdominal pain Medications/Allergies Home Medications Medication Instructions Recorded Confirmed Last Taken Type albuterol sulfate 90 mcg/actuation 2 puff inhalation Q4H PRN 04/17/22 10/08/23 Unknown History aerosol inhaler Shortness Of Breath acetaminophen 500 mg tablet 500 mg PO Q6H PRN Pain 01/22/23 10/08/23 Unknown History lorazepam 1 mg tablet 0.5 - 1 mg PO DAILY PRN Anxiety 01/22/23 10/08/23 Unknown History atorvastatin 40 mg tablet 40 mg PO BEDTIME 30 days #30 tabs 01/30/23 10/08/23 10/07/23 Rx fluticasone propionate 50 2 spray intranasal DAILY PRN 02/06/23 10/08/23 Unknown History mcg/actuation nasal Allergy Symptoms spray,suspension (Flonase Allergy Relief) tramadol 50 mg tablet 50 mg PO Q8H PRN Pain 02/21/23 10/08/23 Unknown History metoprolol tartrate 25 mg tablet 25 mg PO BID@0900,2100 #180 tabs 02/28/23 10/08/23 10/07/23 Rx aspirin 81 mg tablet,delayed 81 mg PO DAILY@04/05/23 10/08/23 10/07/23 History release clopidogrel 75 mg tablet 75 mg PO DAILY@04/05/23 10/08/23 10/07/23 History nitroglycerin 0.4 mg sublingual 0.4 mg sublingual Q5M PRN Chest 04/05/23 10/08/23 Unknown History tablet (Nitrostat) Pain spironolactone 25 mg tablet 25 mg PO DAILY@04/05/23 10/08/23 10/07/23 History sacubitril 24 mg-valsartan 26 mg 0.5 tab PO BID #180 tabs 05/30/23 10/08/23 10/07/23 Rx tablet Acapella #1 ea 06/10/23 10/08/23 Unknown Rx cetirizine 10 mg tablet 10 mg PO BEDTIME PRN allergy 06/10/23 10/08/23 Unknown History symptoms guaifenesin 600 mg tablet, 600 mg PO Q12H PRN congestion #60 06/10/23 10/08/23 Unknown Rx extended release 12 hr (Mucinex) tabs prednisone 5 mg tablet 5 mg PO DAILY 06/10/23 10/08/23 10/07/23 History tiotropium bromide 18 mcg capsule 1 cap inhalation DAILY #60 06/10/23 10/08/23 10/07/23 Rx with inhalation device (Spiriva inhalations with HandiHaler) furosemide 20 mg tablet 20 mg PO DAILY #90 tabs 09/03/23 10/08/23 10/07/23 Rx benzonatate 100 mg capsule 100 mg PO TID PRN Cough 10/08/23 10/08/23 Unknown History Allergies Allergy/AdvReac Type Severity Reaction Status Date / Time meperidine [From Demerol] Allergy ADR-Halluci Verified 06/13/23 12:15 nating PFSH Acute 2 PFSH: Medical History Atherosclerotic heart disease of [place] coronary artery with other forms of angina pectoris Ischemic cardiomyopathy Severe tricuspid regurgitation Cardiomyopathy Pulmonary emphysema with fibrosis of lung Traumatic compression fracture of T12 thoracic vertebra Allergic rhinitis COVID Pneumonia Surgical History History of abdominal surgery H/O section Family History Father Myocardial infarction Family/Other Breast cancer Social History Smoking and tobacco/nicotine status: former use of tobacco/nicotine Quit status (tobacco/nicotine): has quit using Year quit tobacco: 50-60 years ago Alcohol intake: never Substance/Drug Use: never Vitals/I&O/Wt Last Vital Signs Temp 99.7 F H 10/08/23 13:52 Pulse 116 H 10/08/23 15:45 Resp 15 10/08/23 15:45 BP 97/55 10/08/23 15:45 Pulse Ox 95 10/08/23 13:52 O2 Del Method Room Air 10/08/23 13:52 Weight last 48 hrs Weight 40.823 kg Physical Exam 2 Narrative: Septic exam No skin mottling Daughter at the bedside Encephalopathy Currently on room air GCS 15 Euvolemic to dehydrated S1, S2 Systolic murmur Abdomen soft Pleasant and cooperative Data 10/08/23 14:12 10/08/23 14:12 A&P Assessment and plan (1) Ischemic cardiomyopathy: (2) Pulmonary hypertension: (3) Hyponatremia: (4) Leukocytosis: (5) Sepsis: (6) T12 vertebral fracture: (7) Right lower lobe pneumonia: (8) Pulmonary emphysema with fibrosis of lung: (9) Bronchiectasis: Plan Sepsis related pneumonia Criteria met with tachypnea tachycardia leukocytosis, lactic acid is normal Will start patient on antibiotics Patient has bronchiectasis high risk for recurrent infections COVID antigen report is pending Chronic hyponatremia: Gentle fluid hydration overnight Hold diuretic Hypotension: Responsive to IV fluids Hold antihypertensive regimen Hold diuretics Patient history of pulmonary fibrosis with pulmonary hypertension Recent non-STEMI was managed medically Declining functional status Not a good candidate for any kind of surgical intervention Will request GARTH Walsh service has been requested we will follow-up Protein calorie malnourishment BMI extremely low Patient stating that she is not a big eater She does not eat very well because she does not feel hungry DNR/DNI Cardiac diet Will request PT Attestations 2 Medical Necessity Statement*: More than 2 midnights anticipated for management of sepsis, pneumonia, acute compression fracture Diagnoses Ischemic cardiomyopathy I25.5 Pulmonary hypertension I27.20 Hyponatremia E87.1 Leukocytosis D72.829 Sepsis A41.9 T12 vertebral fracture S22.089A Right lower lobe pneumonia J18.9 Pulmonary emphysema with fibrosis of lung J43.9; J84.10 Bronchiectasis J47.9
[2023-10-08] MEDS: cefTRIAXone 1,000 MG in sodium chloride 0.9% (plus) 50 ML 100 MG IV (17:41)
[2023-10-08] MEDS: sodium chloride 0.9% 500 ML IV (17:41)
[2023-10-08 17:49] LABS: Adenovirus Not Detected (NOT DETECT); Chlamydia Pneumoniae Not Detected (NOT DETECT); Coronavirus 229E,HKU1,NL63,OC4 Not Detected (NOT DETECT); Human Metapneumovirus Not Detected (NOT DETECT); Human Rhinovirus/Enterovirus Not Detected (NOT DETECT); Influenza A Not Detected (NOT DETECT); Influenza A H1 Not Detected (NOT DETECT); Influenza A H1-2009 Not Detected (NOT DETECT); Influenza A H3 Not Detected (NOT DETECT); Influenza B Not Detected (NOT DETECT); Mycoplasma Pneumoniae Not Detected (NOT DETECT); Parainfluenza Virus Type 1 Not Detected (NOT DETECT); Parainfluenza Virus Type 2 Not Detected (NOT DETECT); Parainfluenza Virus Type 3 Not Detected (NOT DETECT); Parainfluenza Virus Type 4 Not Detected (NOT DETECT); Respiratory Syncytial Virus A Not Detected (NOT DETECT); Respiratory Syncytial Virus B Not Detected (NOT DETECT); SARS-COV-2 Not Detected (NOT DETECT)
[2023-10-08] MEDS: azithromycin 500 MG in sodium chloride 0.9% 250 ML 250 MG IV (17:49)
[2023-10-08 17:51] LABS: Procalcitonin 0.11 ng/mL (0-0.5)
[2023-10-08 19:46] LABS: Thyroid Stimulating Hormone 2.64 uIU/mL (0.27-4.20); Vitamin B12 985 pg/mL (232-1245)
[2023-10-08] MEDS: sodium chloride 0.9% 1,000 ML 30 ML IV (20:11)
[2023-10-08] MEDS: atorvastatin 40 mg Tablet PO (20:11)
[2023-10-08] MEDS: doxycycline 100 mg Tablet PO (20:11)
[2023-10-08] MEDS: cefepime 1,000 MG in sodium chloride 0.9% (plus) 50 ML 100 MG IV (20:11)
[2023-10-08 21:08] LABS: Glucose Point of Care 116 mg/dL (70-110)
[2023-10-08] MEDS: morphine IR 15 mg Tablet PO (22:30)
[2023-10-09] MEDS: TRAMadol 50 mg Tablet PO (01:46)
[2023-10-09] MEDS: acetaminophen 500 mg Tablet PO (03:13)
[2023-10-09 04:00] VITALS: BP 111/75; PULSE 66; RESP 18; TEMP 37.1; O2SAT 97
[2023-10-09 04:17] LABS: Basophils # 0.1 10^3/uL (0.0-0.1); Basophils % 0.7 %; Eosinophils # 0.3 10^3/uL (0.0-0.8); Eosinophils % 1.9 %; Hematocrit 40.1 % (36-47); Lymphocytes # 3.1 10^3/uL (0.8-4.8); Lymphocytes % 21.4 %; Mean Corpuscular HGB Conc 31.7 g/dL (30-55); Mean Corpuscular Hemoglobin 30.1 pg (27-33); Mean Platelet Volume 9.8 fL (7.4-10.4); Monocytes # 0.8 10^3/uL (0.2-0.9); Monocytes % 5.2 %; Neutrophils # 10.25 10^3/uL (1.8-7.7); Neutrophils % 70.4 %; Nucleated Red Blood Cells % 0 %; Platelet Count 458 10^3/cmm (157-399); Red Blood Count 4.22 10^6/uL (3.85-5.65); White Blood Count 14.55 10^3/uL (3.29-11.43)
[2023-10-09 04:39] LABS: Anion Gap 13.1 (5-19); Blood Urea Nitrogen 20 mg/dL (8-23); Calcium 10.3 mg/dL (8.5-10.5); Carbon Dioxide 25 mmol/L (22-29); Chloride 102 mmol/L (98-107); Glucose 92 mg/dL (65-115); Magnesium 1.8 mg/dL (1.7-2.3); Osmolality Calculated 284 mOsm/kg (285-295); Potassium 4.1 mmol/L (3.5-5.1); Sodium 136 mmol/L (136-145)
[2023-10-09 05:25] VITALS: RESP 18
[2023-10-09] MEDS: morphine IR 15 mg Tablet PO (05:25)
[2023-10-09] MEDS: ondansetron 2 mg/ML SDV 2 mL 4 MG IVP (05:38)
[2023-10-09 06:45] LABS: Glucose Point of Care 112 mg/dL (70-110)
--- NOTE | 2023-10-09 06:51 | PM.CONSULT ---
Providers/Reason For Consult Consulting Physician/Specialty*: Hospitalist Reason for Consult*: T7 compression fracture Attending Physician: Carolann Giullen MD Primary Care Provider: Eber Albarran MD History of Present Illness History of Present Illness Karen Hernandes is a 83 year old female admitted to the hospital for pneumonia 2 days ago she said she had fallen and likely sustained this T7 compression fracture. At this point patient also has a non-STEMI myocardial infarction which is treated medically with cardiology. Patient states that the pain is significant she is laying in bed at this time. Review of Systems Const: Reports: chills, body aches and fatigue Eyes: Denies: change in vision ENMT: Denies: throat pain Card: Reports: chest pain Resp: Reports: dyspnea GI: Denies: abdominal pain Medications/Allergies Home Medications Medication Instructions Recorded Confirmed Last Taken Type albuterol sulfate 90 mcg/actuation 2 puff inhalation Q4H PRN 04/17/22 10/08/23 Unknown History aerosol inhaler Shortness Of Breath acetaminophen 500 mg tablet 500 mg PO Q6H PRN Pain 01/22/23 10/08/23 Unknown History lorazepam 1 mg tablet 0.5 - 1 mg PO DAILY PRN Anxiety 01/22/23 10/08/23 Unknown History atorvastatin 40 mg tablet 40 mg PO BEDTIME 30 days #30 tabs 01/30/23 10/08/23 10/07/23 Rx fluticasone propionate 50 2 spray intranasal DAILY PRN 02/06/23 10/08/23 Unknown History mcg/actuation nasal Allergy Symptoms spray,suspension (Flonase Allergy Relief) tramadol 50 mg tablet 50 mg PO Q8H PRN Pain 02/21/23 10/08/23 Unknown History metoprolol tartrate 25 mg tablet 25 mg PO BID@0900,2100 #180 tabs 02/28/23 10/08/23 10/07/23 Rx aspirin 81 mg tablet,delayed 81 mg PO DAILY@04/05/23 10/08/23 10/07/23 History release clopidogrel 75 mg tablet 75 mg PO DAILY@04/05/23 10/08/23 10/07/23 History nitroglycerin 0.4 mg sublingual 0.4 mg sublingual Q5M PRN Chest 04/05/23 10/08/23 Unknown History tablet (Nitrostat) Pain spironolactone 25 mg tablet 25 mg PO DAILY@09 04/05/23 10/08/23 10/07/23 History sacubitril 24 mg-valsartan 26 mg 0.5 tab PO BID #180 tabs 05/30/23 10/08/23 10/07/23 Rx tablet Acapella #1 ea 06/10/23 10/08/23 Unknown Rx cetirizine 10 mg tablet 10 mg PO BEDTIME PRN allergy 06/10/23 10/08/23 Unknown History symptoms guaifenesin 600 mg tablet, 600 mg PO Q12H PRN congestion #60 06/10/23 10/08/23 Unknown Rx extended release 12 hr (Mucinex) tabs prednisone 5 mg tablet 5 mg PO DAILY 06/10/23 10/08/23 10/07/23 History tiotropium bromide 18 mcg capsule 1 cap inhalation DAILY #60 06/10/23 10/08/23 10/07/23 Rx with inhalation device (Spiriva inhalations with HandiHaler) furosemide 20 mg tablet 20 mg PO DAILY #90 tabs 09/03/23 10/08/23 10/07/23 Rx benzonatate 100 mg capsule 100 mg PO TID PRN Cough 10/08/23 10/08/23 Unknown History Allergies Allergy/AdvReac Type Severity Reaction Status Date / Time meperidine [From Demerol] Allergy ADR-Halluci Verified 06/13/23 12:15 nating Current Medications Generic Name Dose Route Start Last Admin Trade Name Freq PRN Reason Stop Dose Admin Acetaminophen 500 mg 10/08/23 18:44 10/09/23 03:13 Acetaminophen 500 Mg Tablet PO 500 mg Q6H PRN Administration Pain Atorvastatin Calcium 40 mg 10/08/23 21:00 10/08/23 20:11 Atorvastatin 40 Mg Tablet PO 40 mg BEDTIME BENITA Administration Doxycycline Monohydrate 100 mg 10/08/23 18:44 10/08/23 20:11 Doxycycline 100 Mg Tablet PO 100 mg BID BENITA Administration Protocol Cefepime HCl 1,000 mg/ Sodium 50 mls @ 100 mls/hr 10/08/23 19:00 10/08/23 20:46 Chloride IV Infused Q24H BENITA Infusion Protocol Sodium Chloride 1,000 mls @ 30 mls/hr 10/08/23 18:44 10/08/23 20:11 Sodium Chloride 0.9% IV 30 mls/hr .Q24H BENITA Administration Insulin Human Lispro 0 unit 10/08/23 18:44 10/08/23 19:47 Insulin Lispro 100 Unit/1 Ml SUBCUT Not Given TIDWM [facility] Protocol Morphine Sulfate 15 mg 10/08/23 18:44 10/09/23 05:25 Morphine Ir 15 Mg Tablet PO 15 mg Q6H PRN Administration MODERATE PAIN Ondansetron HCl 4 mg 10/08/23 18:44 10/09/23 05:38 Ondansetron 2 Mg/Ml Sdv 2 Ml IVP 4 mg Q6H PRN Administration NAUSEA AND VOMITING Tramadol HCl 50 mg 10/08/23 18:44 10/09/23 01:46 Tramadol 50 Mg Tablet PO 50 mg Q8H PRN Administration Pain PFSH Acute PFSH: Medical History Atherosclerotic heart disease of [place] coronary artery with other forms of angina pectoris Ischemic cardiomyopathy Severe tricuspid regurgitation Cardiomyopathy Pulmonary emphysema with fibrosis of lung Traumatic compression fracture of T12 thoracic vertebra Allergic rhinitis COVID Pneumonia Surgical History History of abdominal surgery H/O section Family History Father Myocardial infarction Family/Other Breast cancer Social History Smoking and tobacco/nicotine status: former use of tobacco/nicotine Quit status (tobacco/nicotine): has quit using Year quit tobacco: 50-60 years ago Alcohol intake: never Substance/Drug Use: never Vitals/I&O/Wt Last Vital Signs Temp 98.8 F 10/09/23 04:00 Pulse 66 10/09/23 04:00 Resp 18 10/09/23 05:25 BP 111/75 10/09/23 04:00 Pulse Ox 97 10/09/23 04:00 O2 Del Method Nasal Cannula 10/08/23 18:45 O2 Flow Rate 2 10/08/23 17:49 10/08/23 10/08/23 10/09/23 14:59 22:59 06:59 Intake Total 1969 Balance 1969 Weight last 48 hrs Weight 97 lb 3.2 oz Weight 90 lb Weight 90 lb Physical Exam Narrative: Patient has 5 of 5 strength in all extremities. Sensation is intact. Pain over the mid thoracic spine. Data 10/09/23 03:10 10/09/23 03:10 A&P Assessment and plan (1) Compression fracture of T7 vertebra: Patient has a T7 compression fracture. At this point with her pneumonia and other medical conditions we will attempt to treat nonoperatively. Will order a TLSO brace. She does not need to wear the brace in bed just when she is up out of bed. For comfort. Did discuss kyphoplasty whether will attempt to treat nonoperatively however initially. Qualifiers: Encounter type: initial encounter Qualified Code(s): S22.060A - Wedge compression fracture of T7-T8 vertebra, initial encounter for closed fracture Coding Level of Care Code Acute Code for Chg Fwd Diagnoses Compression fracture of T7 vertebra, initial encounter S22.060A Encounter type: initial encounter
[2023-10-09 07:59] VITALS: BP 73/46
[2023-10-09 08:00] VITALS: BP 80/44; BP 81/46; PULSE 111; PULSE 115; RESP 16; TEMP 36.4; O2SAT 91; O2SAT 93
[2023-10-09] MEDS: lactated ringers 500 ML 999 ML IV (08:39)
[2023-10-09] MEDS: doxycycline 100 mg Tablet PO (08:40)
[2023-10-09] MEDS: sennosides-docusate Tablet 1 TAB PO (08:40)
[2023-10-09] MEDS: predniSONE 5 mg Tablet PO (08:40)
--- NOTE | 2023-10-09 10:28 | PC.CHAP ---
Pastoral Care Encounter/Spiritual Assessment Type of Contact [] Declined peoplesoft hcm consultant visit [] Patient/Family/Request visit [] Outpatient visit [] Follow-up visit [] Physician referral [] Code/Alert [x] Routine visit [] Staff referral [] Actively dying [] Patient sleeping [x] Family support [] [] Out of room [] Palliative care [] [] Receiving care in room [] Pre-surgical visit [] Trauma [] Long length of stay [] ICU visit [] Other: Relational/Emotional Strength [x] Patient feels connected with others/family/visitors/staff [] Distress [] Loneliness/isolation [] Abandonment Spirituality of Patient [] Person of [place] [] Attends Gnosticist of their [place] [] Believes in Prayer [] Reads Bible or Mu-Ism materials [] There are Spiritual issues to be addressed Customer Contact Sales Associate Interventions [x] Prayer [x] Active listening [] Non-anxious presence [] Spiritual/emotional support [] Crisis/trauma care [] Spiritual counseling [] Bereavement support [] Provided bereavement packet [] Provided Bible/devotional materials [] Provided toy/stuffed animal, coloring book to patient or family member [] Provided Communion [] Anointing/[place] [] Salvation [] Completed spiritual assessment [] Other: Impact on Illness or Injury [] Angry [] Fearful [] Anxious [] Often cries [] Exhaustion [] Unable to work [] Unable to attend tenriism [] Unable to walk/stand [] Unable to read [] Unable to drive [] Unable to eat/drink [] Unable to sleep [] Unable to be with family [] Patient intubated [] Other: Summary Time spent with patient 15 min
[2023-10-09 11:08] LABS: Glucose Point of Care 112 mg/dL (70-110)
--- NOTE | 2023-10-09 11:24 | P.DS_ITS ---
Discharge Providers Date of Admission: 10/08/23 18:44 Date of Discharge: October 09, 2023 Attending Provider at Admission: Carolann Guillen MD Attending Provider at Discharge: Carolann Guillen MD Primary Care Provider: Eber Albarran MD Diagnoses at Discharge Discharge Diagnosis (1) Compression fracture of T7 vertebra: Status: Acute Qualifiers: Encounter type: initial encounter Qualified Code(s): S22.060A - Wedge compression fracture of T7-T8 vertebra, initial encounter for closed fracture Reason for Visit Reason for Visit: Post Fall Rib, Back Pain Hospital Course Hospital Course 83-year-old female with history of compression fracture, T12 area, she was using a magnetic brace at home, lives alone, daughter and granddaughter checks on her who lives nearby, she was initially diagnosed with non-STEMI after stress test that she was made to manage her medically, patient is stating that she has lived an active life and it is hard for her to stay sedentary, she still tries to do a lot at home, in attempt to be more active she fell again this time she was diagnosed with T7 fracture, Dr. Walsh was consulted who recommended TLSO brace, she did well with physical therapy, for her pain she prefers tramadol send of opioids, she was also diagnosed with right lower lobe pneumonia but I do think this is a chronic lung anatomical change that is being picked up on CT scan, she remained afebrile no significant leukocytosis, she has bronchiectasis has received multiple antibiotics, she is not complaining of fever, productive cough diarrhea or chest pain. She will be discharged home with a TLSO brace. I have asked daughter to consider palliative care in future for her worsening functional status. She is not showing signs of cauda equina. Patient's p.o. intake has been poor, her blood pressures remains on the lower side she never gets any significant symptoms, I have asked her to not take Lasix and Entresto w ith her hypotension Physical Exam Narrative: She did well with physical therapy Awake and alert Dehydrated GCS 15 Discharge Data Studies Completed and Pending Completed Studies During Hospitalization Category Date Time Status CT thoracic spin wo con* [id number] Stat Cat Scan 10/08/23 14:04 Completed XR chest 1V portable [id number] Stat Exams 10/08/23 14:10 Completed Pending at discharge Category Date Time Status Blood Cultures ([facility]) Routine Lab 10/08/23 16:52 Received Blood Cultures ([facility]) Routine Lab 10/08/23 16:57 Received Urinalysis Stat Lab 10/08/23 14:04 Ordered Urine Culture Stat Lab 10/08/23 16:20 Received Laboratory Results WBC 14.55 10^3/uL (3.29-11.43) H 10/09/23 03:10 RBC 4.22 10^6/uL (3.85-5.65) 10/09/23 03:10 Hgb 12.70 g/dL (11.27-16.99) 10/09/23 03:10 Hct 40.1 % (36-47) 10/09/23 03:10 MCV 95.0 fl (85-98) 10/09/23 03:10 MCH 30.1 pg (27-33) 10/09/23 03:10 MCHC 31.7 g/dL (30-55) 10/09/23 03:10 RDW 16.0 % (12.1-15.1) H 10/09/23 03:10 Plt Count 458 10^3/cmm (157-399) H 10/09/23 03:10 MPV 9.8 fL (7.4-10.4) 10/09/23 03:10 Neut % (Auto) 70.4 % 10/09/23 03:10 Lymph % (Auto) 21.4 % 10/09/23 03:10 Cobb % (Auto) 5.2 % 10/09/23 03:10 Eos % (Auto) 1.9 % 10/09/23 03:10 Baso % (Auto) 0.7 % 10/09/23 03:10 Neut # (Auto) 10.25 10^3/uL (1.8-7.7) H 10/09/23 03:10 Lymph # (Auto) 3.1 10^3/uL (0.8-4.8) 10/09/23 03:10 Cobb # (Auto) 0.8 10^3/uL (0.2-0.9) 10/09/23 03:10 Eos # (Auto) 0.3 10^3/uL (0.0-0.8) 10/09/23 03:10 Baso # (Auto) 0.1 10^3/uL (0.0-0.1) 10/09/23 03:10 Nucleated RBC % (auto) 0 % 10/09/23 03:10 Nucleated RBCs # 0.0 /100WBC 10/09/23 03:10 Sodium 136 mmol/L (136-145) 10/09/23 03:10 Potassium 4.1 mmol/L (3.5-5.1) 10/09/23 03:10 Chloride 102 mmol/L (98-107) 10/09/23 03:10 Carbon Dioxide 25 mmol/L (22-29) 10/09/23 03:10 Anion Gap 13.1 (5-19) 10/09/23 03:10 BUN 20 mg/dL (8-23) 10/09/23 03:10 Creatinine 0.9 mg/dL (0.5-0.9) 10/09/23 03:10 GFR Calculation Not Reportable 10/09/23 03:10 Glucose 92 mg/dL (65-115) 10/09/23 03:10 POC Glucose 112 mg/dL (70-110) H 10/09/23 11:02 Calculated Osmolality 284 mOsm/kg (285-295) L 10/09/23 03:10 Lactic Acid 1.8 mmol/L (0.5-2.2) 10/08/23 14:12 Calcium 10.3 mg/dL (8.5-10.5) 10/09/23 03:10 Magnesium 1.8 mg/dL (1.7-2.3) 10/09/23 03:10 Total Bilirubin 0.7 mg/dL (0.15-1.2) 10/08/23 14:12 AST 20 U/L (0-32) 10/08/23 14:12 ALT 10 U/L (0-33) 10/08/23 14:12 Alkaline Phosphatase 86 U/L (35-105) 10/08/23 14:12 Total Protein 7.9 g/dL (6.6-8.7) 10/08/23 14:12 Albumin 3.3 g/dL (3.5-5.2) L 10/08/23 14:12 Globulin 4.6 g/dL (1.3-4.6) 10/08/23 14:12 Vitamin B12 985 pg/mL (232-1245) 10/08/23 14:12 Procalcitonin 0.11 ng/mL (0-0.5) 10/08/23 14:12 TSH 2.64 uIU/mL (0.27-4.20) 10/08/23 14:12 TSH 2.71 uIU/mL (0.27-4.20) 10/08/23 14:12 Coronavirus 229E (PCR) Not detected (NOT DETECT) 10/08/23 14:58 Influenza Type A Ag negative (Negative) 10/08/23 14:58 Influenza Type B Ag negative (Negative) 10/08/23 14:58 SARS-CoV-2 (PCR) Not detected (NOT DETECT) 10/08/23 14:58 SARS-CoV-2 Ag (Rapid) Cancelled 10/08/23 14:58 Vitals Last Vital Signs Temp 97.5 F L 10/09/23 08:00 Pulse 111 H 10/09/23 08:00 Resp 16 10/09/23 08:00 BP 80/44 10/09/23 08:00 Pulse Ox 93 10/09/23 08:00 O2 Del Method Nasal Cannula 10/09/23 08:00 O2 Flow Rate 2 10/09/23 08:00 Discharge Plan Discharge Patient Disposition: Home Condition: Stable Prescriptions: New oxycodone-acetaminophen 10-325 mg Tablet 1 tab PO Q8H PRN (Reason: back pain) Qty: 10 0RF doxycycline monohydrate 100 mg Tablet 100 mg PO BID Qty: 6 0RF sennosides-docusate sodium [Stool Softener-Laxative] 8.6-50 mg Tablet 1 tab PO DAILY Qty: 10 0RF Continued (DME) Acapella See Rx Instructions .Route .MEDSUPPLY Qty: 1 0RF Rx Instructions: As directed guaifenesin [Mucinex] 600 mg tablet extended release 12hr 600 mg PO Q12H PRN (Reason: congestion) Qty: 60 6RF prednisone 5 mg tablet 5 mg PO DAILY Hold Instructions: Resume on 04/22/23. tiotropium bromide [Spiriva with HandiHaler] 18 mcg capsule, w/inhalation device 1 cap inhalation DAILY Qty: 60 6RF Rx Instructions: puncture 1 cap using device; one dose = 2 inhalations fluticasone propionate [Flonase Allergy Relief] 50 mcg/actuation spray,suspension 2 spray intranasal DAILY PRN (Reason: Allergy Symptoms) Rx Instructions: administer into each nostril albuterol sulfate 90 mcg/actuation HFA aerosol inhaler 2 puff INHALATION Q4H PRN (Reason: Shortness Of Breath) benzonatate 100 mg capsule 100 mg PO TID PRN (Reason: Cough) acetaminophen 500 mg Tablet 500 mg PO Q6H PRN (Reason: Pain) lorazepam 1 mg tablet 0.5 - 1 mg PO DAILY PRN (Reason: Anxiety) atorvastatin 40 mg Tablet 40 mg PO BEDTIME 30 Days Qty: 30 1RF cetirizine 10 mg tablet 10 mg PO BEDTIME PRN (Reason: allergy symptoms) aspirin 81 mg Tablet,Delayed Release (Dr/Ec) 81 mg PO DAILY@09 nitroglycerin [Nitrostat] 0.4 mg Tablet, Sublingual 0.4 mg SUBLINGUAL Q5M PRN (Reason: Chest Pain) Rx Instructions: do not exceed 3 doses per episode tramadol 50 mg tablet 50 mg PO Q8H PRN (Reason: Pain) Qty: 20 0RF Held furosemide 20 mg tablet 20 mg PO DAILY Qty: 90 3RF Hold Instructions: Resume on 10/23/23. Discontinued metoprolol tartrate 25 mg tablet 25 mg PO BID@0900,2100 Qty: 180 3RF sacubitril-valsartan 24-26 mg tablet 0.5 tab PO BID Qty: 180 0RF clopidogrel 75 mg tablet 75 mg PO DAILY@09 spironolactone 25 mg tablet 25 mg PO DAILY@09 Hold Instructions: Resume on 04/17/23. Discharge Orders: Discharge Order (Routine); Ordered 10/09/23 Ordered By: Carolann Guillen Referrals: Eber Albarran MD [Primary Care Provider] - 10/15/23 10:15 am Patient Instructions: Opioid Safety Discharge Attestations Time Spent in Discharge Care*: greater than 30 min Status at Discharge: Cognitive status at discharge: cognitively intact , Behavioral status at discharge: cooperative , Quality Metrics Clinical Quality Measures [ No reported AMI, CVA or VTE this stay] Coding Level of Care Code Acute Code for Chg Fwd Diagnoses Compression fracture of T7 vertebra, initial encounter S22.060A Encounter type: initial encounter
[2023-10-09 11:47] VITALS: BP 90/55; PULSE 117; RESP 18; TEMP 36.3; O2SAT 92
== END 2023-10-09 11:55 | disposition home health service (06) | DRG 194 ==
LOC: ER 14:37 → MEDSURG 19:33
PROVIDERS: Admitting Provider Internal Medicine; Emergency Provider Emergency Medicine; PCP Family Medicine; Visit Provider Internal Medicine
DX: J18.9 Pneumonia, unspecified organism (principal); E46 Unspecified protein-calorie malnutrition; S22.060A Wedge compression fracture of T7-T8 vertebra, initial encounter for closed fracture; E87.1 Hypo-osmolality and hyponatremia; Z68.1 Body mass index [BMI] 19.9 or less, adult; I25.2 Old myocardial infarction; R09.02 Hypoxemia; Z66 Do not resuscitate; I25.10 Atherosclerotic heart disease of native coronary artery without angina pectoris; I25.5 Ischemic cardiomyopathy; I07.1 Rheumatic tricuspid insufficiency; J43.9 Emphysema, unspecified; J84.10 Pulmonary fibrosis, unspecified; I27.20 Pulmonary hypertension, unspecified; W19.XXXA Unspecified fall, initial encounter; I95.9 Hypotension, unspecified; Z99.81 Dependence on supplemental oxygen; Z79.82 Long term (current) use of aspirin; Z79.02 Long term (current) use of antithrombotics/antiplatelets; Z86.16 Personal history of COVID-19; Z87.01 Personal history of pneumonia (recurrent); Z87.891 Personal history of nicotine dependence; Z11.52 Encounter for screening for COVID-19; R63.0 Anorexia
CPT/HCPCS: 36415; 36416; 71045; 72128; 80048; 80053; 82607; 82962; 83605; 83735; 84145; 84443; 85025; 87040; 87086; 87635; 87804; 96365; 96367; 96375; 97116; 97162; 97530; 99285; G0378; J0456; J0692; J0696; J2270; J2405; J3010; J7030; J7040; J7050; J7120; J7512; L0456

== ENCOUNTER → 2023-11-12 11:24 | Outpatient (BNVA) | payer MEDICARE, SELFPAY | PROVIDERS: PCP Family Medicine; Visit Provider Orthopaedic Surgery | DX: S22.060A Wedge compression fracture of T7-T8 vertebra, initial encounter for closed fracture; X58.XXXA Exposure to other specified factors, initial encounter | CPT/HCPCS: 72072; 99213 ==

== ENCOUNTER → 2023-12-10 15:02 | Outpatient (BNVA) | payer MEDICARE, SELFPAY | PROVIDERS: PCP Family Medicine; Visit Provider Orthopaedic Surgery | DX: S22.060A Wedge compression fracture of T7-T8 vertebra, initial encounter for closed fracture (principal); X58.XXXA Exposure to other specified factors, initial encounter; I25.10 Atherosclerotic heart disease of native coronary artery without angina pectoris; I25.5 Ischemic cardiomyopathy; I07.1 Rheumatic tricuspid insufficiency; R06.02 Shortness of breath; J43.9 Emphysema, unspecified; J84.10 Pulmonary fibrosis, unspecified | CPT/HCPCS: 36415; 72072; 80048; 83880; 99213; 99214 ==

== ENCOUNTER 2024-01-09 13:39 | Outpatient (CLI) | payer MEDICARE, SELFPAY ==
--- NOTE | 2024-01-09 13:46 | XR_ITS ---
WS: [id number] DEXA (DUAL ENERGY X-RAY ABSORPTIOMETRY) Bone mineral density was performed using a Muzzley machine. HISTORY: OSTEOPOROSIS M81.0 COMPARISON: None available. Lumbar spine BMD (L1-L4): 0.894 g/cm2 T score: -2.4 Z score: 0.4 Total hip BMD: Left: 0.617 g/cm2. T score: -3.1 Z score: -0.3 Right: 0.587 g/cm2. T score: -3.3 Z score: -0.5 10 year probability of a major osteoporotic fracture is 15.7%. IMPRESSION: OSTEOPOROSIS based upon the WHO classification for females.
== END 2024-01-09 13:40 | disposition home or self-care (01) ==
LOC: RAD 13:39
PROVIDERS: PCP Family Medicine; Visit Provider Family Medicine
DX: M81.0 Age-related osteoporosis without current pathological fracture (principal)
CPT/HCPCS: 77080

== ENCOUNTER 2024-02-09 18:13 | Inpatient (IN) | payer MEDICARE, SELFPAY ==
[2024-02-09 18:18] VITALS: BP 109/74; PULSE 87; RESP 24; TEMP 36.6; O2SAT 95; BMI 15.1
--- NOTE | 2024-02-09 19:29 | XRR_ITS ---
PROCEDURE INFORMATION: Exam: XR Chest Exam date and time: 02/09/2024 8:23 PM Age: 83 years old Clinical indication: Cough and shortness of breath; Patient HX: Cough; SOB; Pneumonia TECHNIQUE: Imaging protocol: Radiologic exam of the chest. Views: 1 view. 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 However since September of this year and April of last year opacification has increased in the right lung base suggesting there could also be superimposed pleural fluid and/or atelectasis/consolidation. Pleural spaces: See Lungs finding. Heart/Mediastinum: Unremarkable. No cardiomegaly. Bones/joints: Chronic cement fusion of a lower thoracic vertebral body. XR/XR chest 1V portable [id number] IMPRESSION: 1. Increasing right basilar opacity is probably combination of pleural fluid and atelectasis/consolidation. 2. Chronic pulmonary fibrosis
[2024-02-09 19:47] LABS: Basophils # 0.1 10^3/uL (0.0-0.1); Basophils % 0.3 %; Eosinophils # 0.1 10^3/uL (0.0-0.8); Eosinophils % 0.4 %; Hematocrit 38.4 % (36-47); Lymphocytes # 3.4 10^3/uL (0.8-4.8); Lymphocytes % 17.1 %; Mean Corpuscular HGB Conc 32.6 g/dL (30-55); Mean Corpuscular Hemoglobin 32.6 pg (27-33); Mean Platelet Volume 9.7 fL (7.4-10.4); Monocytes # 1.2 10^3/uL (0.2-0.9); Monocytes % 6.2 %; Neutrophils # 15.05 10^3/uL (1.8-7.7); Neutrophils % 75.6 %; Nucleated Red Blood Cells % 0 %; Platelet Count 370 10^3/cmm (157-399); Red Blood Count 3.84 10^6/uL (3.85-5.65); Red Cell Distribution Width 13.9 % (12.1-15.1)
[2024-02-09 20:09] LABS: Alanine Aminotransferase 8 U/L (0-33); Albumin Level 3.8 g/dL (3.5-5.2); Alkaline Phosphatase 93 U/L (35-105); Anion Gap 15.9 (5-19); Aspartate Amino Transferase 21 U/L (0-32); Blood Urea Nitrogen 25 mg/dL (8-23); Calcium 9.7 mg/dL (8.5-10.5); Carbon Dioxide 27 mmol/L (22-29); Chloride 94 mmol/L (98-107); Globulin 4.9 g/dL (1.3-4.6); Glucose 134 mg/dL (65-115); Osmolality Calculated 282 mOsm/kg (285-295); Potassium 3.9 mmol/L (3.5-5.1); Sodium 133 mmol/L (136-145); Total Bilirubin 0.6 mg/dL (0.15-1.2); Total Protein 8.7 g/dL (6.6-8.7)
[2024-02-09 20:36] LABS: Lactic Sepsis W/Reflex 1.8 mmol/L (0.5-2.2)
--- NOTE | 2024-02-09 21:14 | ED_ITS ---
Documented by User: LEANNA Figueroa 02/09/24 23:59 HPI - General Adult 2 General: Chief complaint: General Medical Stated complaint: sob, pnemonia+ weak cant eat Time Seen by Provider: 02/09/24 21:14 History of Present Illness: 83-year-old female comes in today for co mplaints of increased shortness of breath and weakness. Patient just completed doxycycline for probable pneumonia. Patient has a history of pulmonary fibrosis and recurrent pneumonia. Patient also has a history of coronary artery disease, atherosclerosis, vertebral fractures. Patient routinely takes Entresto 1/2 tablet twice a day, atorvastatin 40 mg daily, prednisone 5 mg, furosemide 20, and aspirin 81 mg. Review of Systems 2 General: Reports: 10 or more systems reviewed and unremarkable except in HPI and below PFSH ED 2 PFSH: Medical History (Updated 02/09/24 @ 22:15 by Andre Bunn MD) Pulmonary hypertension Severe tricuspid regurgitation Pulmonary emphysema with fibrosis of lung Compression fracture of T7 vertebra Bronchiectasis Sepsis Hyponatremia Leukocytosis Right lower lobe pneumonia T12 vertebral fracture Atherosclerotic heart disease of [place] coronary artery with other forms of angina pectoris Ischemic cardiomyopathy Cardiomyopathy Traumatic compression fracture of T12 thoracic vertebra Allergic rhinitis COVID Pneumonia Surgical History History of abdominal surgery H/O section Family History Father Myocardial infarction Family/Other Breast cancer Social History Smoking and tobacco/nicotine status: former use of tobacco/nicotine Quit status (tobacco/nicotine): has quit using Year quit tobacco: 50-60 years ago Alcohol intake: never Substance/Drug Use: never Physical Exam 2 Const: COMMON NORMALS: alert HENMT: COMMON NORMALS: normocephalic HEAD & SCALP: normocephalic Neck/C-Spine: COMMON NORMALS: full ROM Resp: COMMON NORMALS: normal respiratory effort AUSCULTATION: crackles Laterality: right Cardio: COMMON NORMALS: regular rate and regular rhythm RATE: regular rate RHYTHM: regular rhythm GI: COMMON NORMALS: Soft to palpation and non-tender PALPATION: Yes Soft to palpation Back/Pelvis: COMMON NORMALS: thoracic and lumbar spine normal to inspection Extremity: COMMON NORMALS: no pedal edema Neuro: SENSORIUM/ORIENTATION: Yes alert Skin: COMMON NORMALS: turgor normal GENERAL SKIN EXAM: turgor normal Course 2 Vital Signs: Vital signs: Vital Signs Temperature 98.3 F 02/10/24 00:00 Pulse Rate 103 H 02/10/24 00:00 Respiratory Rate 18 02/10/24 00:00 Blood Pressure 130/77 02/10/24 00:00 Pulse Oximetry 95 02/10/24 00:00 Oxygen Delivery Me thod Room Air 02/10/24 00:00 [facility] - General Adult Medical Decision Making Patient comes in today for complaints of weakness increasing and increasing shortness of breath. Patient has recently completed a round of doxycycline. Patient reported no improvement of symptoms. On exam patient has crackles in her right lower lung collazo. Abdomen soft nontender. Patient has some mild edema at the ankles. Pulses are intact. Vital signs are normal except for some mild increase in respiratory rate. Differential diagnosis includes pneumonia, exacerbation of COPD/pulmonary fibrosis, sepsis. CBC showed increase in white count from 14,000-19,000. CMP had a sodium of 133 and a creatinine of 1.0. I discussed the patient with Dr. Bunn, hospitalist, he agreed to see the patient for probable admission for exacerbation of pulmonary fibrosis and possible pneumonia. We added a troponin and BNP to patient's regimen. Lab Data 02/09/24 19:40 02/09/24 19:40 Radiology Impressions Chest X-Ray 02/09/24 19:29 IMPRESSION: 1. Increasing right basilar opacity is probably combination of pleural fluid and atelectasis/consolidation. 2. Chronic pulmonary fibrosis Laboratory Results WBC 19.90 10^3/uL (3.29-11.43) H 02/09/24 19:40 RBC 3.84 10^6/uL (3.85-5.65) L 02/09/24 19:40 Hgb 12.50 g/dL (11.27-16.99) 02/09/24 19:40 Hct 38.4 % (36-47) 02/09/24 19:40 MCV 100.0 fl (85-98) H 02/09/24 19:40 MCH 32.6 pg (27-33) 02/09/24 19:40 MCHC 32.6 g/dL (30-55) 02/09/24 19:40 RDW 13.9 % (12.1-15.1) 02/09/24 19:40 Plt Count 370 10^3/cmm (157-399) 02/09/24 19:40 MPV 9.7 fL (7.4-10.4) 02/09/24 19:40 Neut % (Auto) 75.6 % 02/09/24 19:40 Lymph % (Auto) 17.1 % 02/09/24 19:40 Taylor % (Auto) 6.2 % 02/09/24 19:40 Eos % (Auto) 0.4 % 02/09/24 19:40 Baso % (Auto) 0.3 % 02/09/24 19:40 Neut # (Auto) 15.05 10^3/uL (1.8-7.7) H 02/09/24 19:40 Lymph # (Auto) 3.4 10^3/uL (0.8-4.8) 02/09/24 19:40 Taylor # (Auto) 1.2 10^3/uL (0.2-0.9) H 02/09/24 19:40 Eos # (Auto) 0.1 10^3/uL (0.0-0.8) 02/09/24 19:40 Baso # (Auto) 0.1 10^3/uL (0.0-0.1) 02/09/24 19:40 Nucleated RBC % (auto) 0 % 02/09/24 19:40 Nucleated RBCs # 0.0 /100WBC 02/09/24 19:40 Sodium 133 mmol/L (136-145) L 02/09/24 19:40 Potassium 3.9 mmol/L (3.5-5.1) 02/09/24 19:40 Chloride 94 mmol/L (98-107) L 02/09/24 19:40 Carbon Dioxide 27 mmol/L (22-29) 02/09/24 19:40 Anion Gap 15.9 (5-19) 02/09/24 19:40 BUN 25 mg/dL (8-23) H 02/09/24 19:40 Creatinine 1.0 mg/dL (0.5-0.9) H 02/09/24 19:40 GFR Calculation Not Reportable 02/09/24 19:40 Glucose 134 mg/dL (65-115) H 02/09/24 19:40 Estimat Average Glucose 108 02/09/24 19:40 Hemoglobin A1c 5.4 % (4.0-6.0) 02/09/24 19:40 Calculated Osmolality 282 mOsm/kg (285-295) L 02/09/24 19:40 Lactic Acid 1.8 mmol/L (0.5-2.2) 02/09/24 19:40 Calcium 9.7 mg/dL (8.5-10.5) 02/09/24 19:40 Total Bilirubin 0.6 mg/dL (0.15-1.2) 02/09/24 19:40 AST 21 U/L (0-32) 02/09/24 19:40 ALT 8 U/L (0-33) 02/09/24 19:40 Alkaline Phosphatase 93 U/L (35-105) 02/09/24 19:40 Troponin T Baseline 13 ng/L (0-10) H 02/09/24 19:40 NT-Pro-B Natriuret Pep 1969 pg/mL (0-450) H 02/09/24 19:40 NT-Pro-B Natriuret Pep 2001 pg/mL (0-450) H 02/09/24 19:40 Total Protein 8.7 g/dL (6.6-8.7) 02/09/24 19:40 Albumin 3.8 g/dL (3.5-5.2) 02/09/24 19:40 Globulin 4.9 g/dL (1.3-4.6) H 02/09/24 19:40 Triglycerides 86 mg/dL (0-150) 02/09/24 19:40 Cholesterol 117 mg/dL (0-200) 02/09/24 19:40 LDL Cholesterol, Calc 41 mg/dL (50-129) L 02/09/24 19:40 HDL Cholesterol 59 mg/dL (60-100) L 02/09/24 19:40 LDL/HDL Ratio 0.69 RATIO (0.00-3.22) 02/09/24 19:40 Cholesterol/HDL Ratio 1.98 mg/dL (0.0-4.40) 02/09/24 19:40 Procalcitonin 0.10 ng/mL (0-0.5) 02/09/24 19:40 TSH 1.46 uIU/mL (0.27-4.20) 02/09/24 19:40 Adenovirus (PCR) Not detected (NOT DETECT) 02/09/24 21:16 C. pneumoniae DNA (PCR) Not detected (NOT DETECT) 02/09/24 21:16 Coronavirus 229E (PCR) Not detected (NOT DETECT) 02/09/24 21:16 Human Metapneumovir PCR Not detected (NOT DETECT) 02/09/24 21:16 Influenza A (H1) PCR Not detected (NOT DETECT) 02/09/24 21:16 Influ A (H1/09) PCR Not detected (NOT DETECT) 02/09/24 21:16 Influenza A (H3) PCR Not detected (NOT DETECT) 02/09/24 21:16 Influenza Type A (PCR) Not detected (NOT DETECT) 02/09/24 21:16 Influenza Type B (PCR) Not detected (NOT DETECT) 02/09/24 21:16 M. pneumoniae (PCR) Not detected (NOT DETECT) 02/09/24 21:16 Parainfluenza 1 (PCR) Not detected (NOT DETECT) 02/09/24 21:16 Parainfluenza 2 (PCR) Not detected (NOT DETECT) 02/09/24 21:16 Parainfluenza 3 (PCR) Not detected (NOT DETECT) 02/09/24 21:16 Parainfluenza 4 (PCR) Not detected (NOT DETECT) 02/09/24 21:16 RSV Type A (PCR) Not detected (NOT DETECT) 02/09/24 21:16 RSV Type B (PCR) Not detected (NOT DETECT) 02/09/24 21:16 Entero/Rhino (PCR) Not detected (NOT DETECT) 02/09/24 21:16 SARS-CoV-2 (PCR) Not detected (NOT DETECT) 02/09/24 21:16 XR interpretation done by ED provider, pending radiology final review Discharge Plan Discharge Patient Disposition: Admitted As Inpatient Admit Provider: Andre Bunn Clinical Impression: Pulmonary emphysema with fibrosis of lung Condition: Stable Coding Level of Care Code ED Ice Cream Dispenser for Chg Fwd Documented by User: Michael Schneider DO 02/10/24 02:16 HPI - General Adult 2 General: Chief complaint: General Medical Stated complaint: sob, pnemonia+ weak cant eat Time Seen by Provider: 02/09/24 21:14 PFSH ED 2 PFSH: Medical History (Updated 02/09/24 @ 22:15 by Andre Bunn MD) Pulmonary hypertension Severe tricuspid regurgitation Pulmonary emphysema with fibrosis of lung Compression fracture of T7 vertebra Bronchiectasis Sepsis Hyponatremia Leukocytosis Right lower lobe pneumonia T12 vertebral fracture Atherosclerotic heart disease of [place] coronary artery with other forms of angina pectoris Ischemic cardiomyopathy Cardiomyopathy Traumatic compression fracture of T12 thoracic vertebra Allergic rhinitis COVID Pneumonia Surgical History History of abdominal surgery H/O section Family History Father Myocardial infarction Family/Other Breast cancer Social History Smoking and tobacco/nicotine status: former use of tobacco/nicotine Quit status (tobacco/nicotine): has quit using Year quit tobacco: 50-60 years ago Alcohol intake: never Substance/Drug Use: never Course 2 Vital Signs: Vital signs: Vital Signs Temperature 98.3 F 02/10/24 00:00 Pulse Rate 103 H 02/10/24 00:00 Respiratory Rate 18 02/10/24 00:00 Blood Pressure 130/77 02/10/24 00:00 Pulse Oximetry 95 02/10/24 00:00 Oxygen Delivery Me thod Room Air 02/10/24 00:00 MDM - General Adult Medical Decision Making Patient comes in today for complaints of weakness increasing and increasing shortness of breath. Patient has recently completed a round of doxycycline. Patient reported no improvement of symptoms. On exam patient has crackles in her right lower lung collazo. Abdomen soft nontender. Patient has some mild edema at the ankles. Pulses are intact. Vital signs are normal except for some mild increase in respiratory rate. Differential diagnosis includes pneumonia, exacerbation of COPD/pulmonary fibrosis, sepsis. CBC showed increase in white count from 14,000-19,000. CMP had a sodium of 133 and a creatinine of 1.0. I discussed the patient with Dr. Bunn, hospitalist, he agreed to see the patient for probable admission for exacerbation of pulmonary fibrosis and possible pneumonia. We added a troponin and BNP to patient's regimen. This patient was originally seen by LEANNA Beavers.? I agree with his history, evaluation, and treatment. Lab Data 02/09/24 19:40 02/09/24 19:40 Radiology Impressions Chest X-Ray 02/09/24 19:29 IMPRESSION: 1. Increasing right basilar opacity is probably combination of pleural fluid and atelectasis/consolidation. 2. Chronic pulmonary fibrosis Laboratory Results WBC 19.90 10^3/uL (3.29-11.43) H 02/09/24 19:40 RBC 3.84 10^6/uL (3.85-5.65) L 02/09/24 19:40 Hgb 12.50 g/dL (11.27-16.99) 02/09/24 19:40 Hct 38.4 % (36-47) 02/09/24 19:40 MCV 100.0 fl (85-98) H 02/09/24 19:40 MCH 32.6 pg (27-33) 02/09/24 19:40 MCHC 32.6 g/dL (30-55) 02/09/24 19:40 RDW 13.9 % (12.1-15.1) 02/09/24 19:40 Plt Count 370 10^3/cmm (157-399) 02/09/24 19:40 MPV 9.7 fL (7.4-10.4) 02/09/24 19:40 Neut % (Auto) 75.6 % 02/09/24 19:40 Lymph % (Auto) 17.1 % 02/09/24 19:40 Taylor % (Auto) 6.2 % 02/09/24 19:40 Eos % (Auto) 0.4 % 02/09/24 19:40 Baso % (Auto) 0.3 % 02/09/24 19:40 Neut # (Auto) 15.05 10^3/uL (1.8-7.7) H 02/09/24 19:40 Lymph # (Auto) 3.4 10^3/uL (0.8-4.8) 02/09/24 19:40 Taylor # (Auto) 1.2 10^3/uL (0.2-0.9) H 02/09/24 19:40 Eos # (Auto) 0.1 10^3/uL (0.0-0.8) 02/09/24 19:40 Baso # (Auto) 0.1 10^3/uL (0.0-0.1) 02/09/24 19:40 Nucleated RBC % (auto) 0 % 02/09/24 19:40 Nucleated RBCs # 0.0 /100WBC 02/09/24 19:40 Sodium 133 mmol/L (136-145) L 02/09/24 19:40 Potassium 3.9 mmol/L (3.5-5.1) 02/09/24 19:40 Chloride 94 mmol/L (98-107) L 02/09/24 19:40 Carbon Dioxide 27 mmol/L (22-29) 02/09/24 19:40 Anion Gap 15.9 (5-19) 02/09/24 19:40 BUN 25 mg/dL (8-23) H 02/09/24 19:40 Creatinine 1.0 mg/dL (0.5-0.9) H 02/09/24 19:40 GFR Calculation Not Reportable 02/09/24 19:40 Glucose 134 mg/dL (65-115) H 02/09/24 19:40 Estimat Average Glucose 108 02/09/24 19:40 Hemoglobin A1c 5.4 % (4.0-6.0) 02/09/24 19:40 Calculated Osmolality 282 mOsm/kg (285-295) L 02/09/24 19:40 Lactic Acid 1.8 mmol/L (0.5-2.2) 02/09/24 19:40 Calcium 9.7 mg/dL (8.5-10.5) 02/09/24 19:40 Total Bilirubin 0.6 mg/dL (0.15-1.2) 02/09/24 19:40 AST 21 U/L (0-32) 02/09/24 19:40 ALT 8 U/L (0-33) 02/09/24 19:40 Alkaline Phosphatase 93 U/L (35-105) 02/09/24 19:40 Troponin T Baseline 13 ng/L (0-10) H 02/09/24 19:40 NT-Pro-B Natriuret Pep 1969 pg/mL (0-450) H 02/09/24 19:40 NT-Pro-B Natriuret Pep 2001 pg/mL (0-450) H 02/09/24 19:40 Total Protein 8.7 g/dL (6.6-8.7) 02/09/24 19:40 Albumin 3.8 g/dL (3.5-5.2) 02/09/24 19:40 Globulin 4.9 g/dL (1.3-4.6) H 02/09/24 19:40 Triglycerides 86 mg/dL (0-150) 02/09/24 19:40 Cholesterol 117 mg/dL (0-200) 02/09/24 19:40 LDL Cholesterol, Calc 41 mg/dL (50-129) L 02/09/24 19:40 HDL Cholesterol 59 mg/dL (60-100) L 02/09/24 19:40 LDL/HDL Ratio 0.69 RATIO (0.00-3.22) 02/09/24 19:40 Cholesterol/HDL Ratio 1.98 mg/dL (0.0-4.40) 02/09/24 19:40 Procalcitonin 0.10 ng/mL (0-0.5) 02/09/24 19:40 TSH 1.46 uIU/mL (0.27-4.20) 02/09/24 19:40 Adenovirus (PCR) Not detected (NOT DETECT) 02/09/24 21:16 C. pneumoniae DNA (PCR) Not detected (NOT DETECT) 02/09/24 21:16 Coronavirus 229E (PCR) Not detected (NOT DETECT) 02/09/24 21:16 Human Metapneumovir PCR Not detected (NOT DETECT) 02/09/24 21:16 Influenza A (H1) PCR Not detected (NOT DETECT) 02/09/24 21:16 Influ A (H1/09) PCR Not detected (NOT DETECT) 02/09/24 21:16 Influenza A (H3) PCR Not detected (NOT DETECT) 02/09/24 21:16 Influenza Type A (PCR) Not detected (NOT DETECT) 02/09/24 21:16 Influenza Type B (PCR) Not detected (NOT DETECT) 02/09/24 21:16 M. pneumoniae (PCR) Not detected (NOT DETECT) 02/09/24 21:16 Parainfluenza 1 (PCR) Not detected (NOT DETECT) 02/09/24 21:16 Parainfluenza 2 (PCR) Not detected (NOT DETECT) 02/09/24 21:16 Parainfluenza 3 (PCR) Not detected (NOT DETECT) 02/09/24 21:16 Parainfluenza 4 (PCR) Not detected (NOT DETECT) 02/09/24 21:16 RSV Type A (PCR) Not detected (NOT DETECT) 02/09/24 21:16 RSV Type B (PCR) Not detected (NOT DETECT) 02/09/24 21:16 Entero/Rhino (PCR) Not detected (NOT DETECT) 02/09/24 21:16 SARS-CoV-2 (PCR) Not detected (NOT DETECT) 02/09/24 21:16 Discharge Plan Discharge Patient Disposition: Admitted As Inpatient Admit Provider: Andre Bunn Clinical Impression: Pulmonary emphysema with fibrosis of lung Condition: Stable Coding Level of Care Code ED Ice Cream Dispenser for Keke Alvarez
[2024-02-09 21:20] VITALS: BP 109/67; PULSE 99; RESP 18; O2SAT 95
[2024-02-09] MEDS: cefTRIAXone 2,000 MG in sodium chloride 0.9% (plus) 50 ML 100 MG IV (21:23)
[2024-02-09] MEDS: sodium chloride 0.9% 1,000 ML 125 ML IV (21:24)
[2024-02-09] MEDS: methylPREDNISolone sod succ 125 mg/2 mL INJ IVP (21:38)
[2024-02-09 21:46] VITALS: BP 118/71; PULSE 98; RESP 18; O2SAT 93
[2024-02-09 21:48] LABS: Troponin(5th) Baseline 13 ng/L (0-10)
[2024-02-09 21:56] LABS: NT Pro B Type Natriuretic Pept 2001 pg/mL (0-450)
--- NOTE | 2024-02-09 22:02 | ECG_ITS ---
[facility] Test Date: 2024-02-09 Pat Name: Karen Hernandes Department: Room: Gender: Female Social Services: : 1940 Requested By: Carlos Shrestha Order Number: [id number] Alexia MD: Isabel Hardwick M.D. Measurements Intervals [place] Rate: 97 P: 48 MO: 195 QRS: 17 QRSD: 91 T: 24 QT: 334 QTc: 425 Interpretive Statements SINUS RHYTHM WITH FREQUENT VENTRICULAR PREMATURE COMPLEXES ABNORMAL RHYTHM ECG Compared to ECG 07/29/2023 16:40:58 Ventricular premature complex(es) now present Sinus tachycardia no longer present Electronically Signed On 02-09-2024 22:32:08 CDT by Isabel Hardwick M.D. [id number]
[2024-02-09 22:03] VITALS: BP 134/81; PULSE 97; RESP 18; O2SAT 95
--- NOTE | 2024-02-09 22:11 | PM.HP ---
Providers/Chief Complaint Primary Care Provider: Eber Albarran MD Chief Complaint: sob, pnemonia+ weak cant eat History of Present Illness Karen Hernandes is a 83 year old female with a past medical history of pulmonary fibrosis, CAD, cardiomyopathy, pulmonary hypertension, on chronic prednisone, who presents to [facility] for shortness of breath, cough. Patient tells me that she has had shortness of breath and cough for a few days, fatigue, malaise, she was placed on doxycycline by her outpatient physician for concerns for pneumonia however she continues to have difficulty catching her breath, cough, fatigue, malaise. Review of Systems Const: Reports: fatigue and malaise; Denies: fever(s) or chills Card: Denies: chest pain Resp: Reports: dyspnea GI: Denies: abdominal pain Medications/Allergies Home Medications Medication Instructions Recorded Confirmed Last Taken Type albuterol sulfate 90 mcg/actuation 2 puff inhalation Q4H PRN 04/17/22 12/10/23 Unknown History aerosol inhaler Shortness Of Breath acetaminophen 500 mg tablet 500 mg PO Q6H PRN Pain 01/22/23 12/10/23 Unknown History lorazepam 1 mg tablet 0.5 - 1 mg PO DAILY PRN Anxiety 01/22/23 12/10/23 Unknown History atorvastatin 40 mg tablet 40 mg PO BEDTIME 30 days #30 tabs 01/30/23 12/10/23 10/07/23 Rx fluticasone propionate 50 2 spray intranasal DAILY PRN 02/06/23 12/10/23 Unknown History mcg/actuation nasal Allergy Symptoms spray,suspension (Flonase Allergy Relief) aspirin 81 mg tablet,delayed 81 mg PO DAILY@09 04/05/23 12/10/23 10/07/23 History release nitroglycerin 0.4 mg sublingual 0.4 mg sublingual Q5M PRN Chest 04/05/23 12/10/23 Unknown History tablet (Nitrostat) Pain Acapella #1 ea 06/10/23 12/12/23 Unknown Rx cetirizine 10 mg tablet 10 mg PO BEDTIME PRN allergy 06/10/23 12/10/23 Unknown History symptoms guaifenesin 600 mg tablet, 600 mg PO Q12H PRN congestion #60 06/10/23 12/10/23 Unknown Rx extended release 12 hr (Mucinex) tabs prednisone 5 mg tablet 5 mg PO DAILY 06/10/23 12/10/23 10/07/23 History tiotropium bromide 18 mcg capsule 1 cap inhalation DAILY #60 06/10/23 12/10/23 10/07/23 Rx with inhalation device (Spiriva inhalations with HandiHaler) furosemide 20 mg tablet 20 mg PO DAILY #90 tabs 09/03/23 12/10/23 10/07/23 Rx sennosides 8.6 mg-docusate sodium 1 tab PO DAILY #10 tabs 10/09/23 12/10/23 Unknown Rx 50 mg tablet (Stool Softener-Laxative) tramadol 50 mg tablet 50 mg PO Q8H PRN Pain #20 tabs 10/09/23 12/10/23 Unknown Rx ranolazine 500 mg tablet,extended 500 mg PO BID 60 days #120 tabs 12/10/23 12/10/23 Unknown Rx release,12 hr spironolactone 25 mg tablet 25 mg PO DAILY #30 tabs 12/23/23 Unknown Rx sacubitril 24 mg-valsartan 26 mg 0.5 tab PO BID #30 tabs 01/23/24 Unknown Rx tablet (Entresto) Allergies Allergy/AdvReac Type Severity Reaction Status Date / Time meperidine [From Demerol] Allergy ADR-Halluci Verified 02/09/24 18:[facility] Acute PFSH: Medical History (Updated 02/09/24 @ 22:15 by Andre Bunn MD) Pulmonary hypertension Severe tricuspid regurgitation Pulmonary emphysema with fibrosis of lung Compression fracture of T7 vertebra Bronchiectasis Sepsis Hyponatremia Leukocytosis Right lower lobe pneumonia T12 vertebral fracture Atherosclerotic heart disease of [place] coronary artery with other forms of angina pectoris Ischemic cardiomyopathy Cardiomyopathy Traumatic compression fracture of T12 thoracic vertebra Allergic rhinitis COVID Pneumonia Surgical History History of abdominal surgery H/O section Family History Father Myocardial infarction Family/Other Breast cancer Social History Smoking and tobacco/nicotine status: former use of tobacco/nicotine Quit status (tobacco/nicotine): has quit using Year quit tobacco: 50-60 years ago Alcohol intake: never Substance/Drug Use: never Vitals/I&O/Wt Last Vital Signs Temp 97.8 F 02/09/24 18:18 Pulse 97 02/09/24 22:03 Resp 18 02/09/24 22:03 BP 134/81 02/09/24 22:03 Pulse Ox 95 02/09/24 22:03 O2 Del Method Room Air 02/09/24 18:18 02/09/24 02/09/24 02/09/24 06:59 14:59 22:59 Intake Total 50 / 50 Balance 50 / 50 Weight last 48 hrs Weight 37.648 kg Physical Exam Const: COMMON NORMALS: no acute distress and patient oriented x3 HENMT: COMMON NORMALS: normocephalic Eye: COMMON NORMALS: Equal, round and reactive pupils present and EOMs intact bilaterally Resp: COMMON NORMALS: normal respiratory effort, No retractions and No use of accessory muscles AUSCULTATION: wheezes Cardio: COMMON NORMALS: regular rate, regular rhythm, S1 normal heart sound present and S2 normal heart sound present RATE: regular rate RHYTHM: regular rhythm HEART SOUNDS: S1 normal heart sound present and S2 normal heart sound present GI: COMMON NORMALS: Normal to inspection, nondistended, normoactive bowel sounds present, Soft to palpation and non-tender Extremity: COMMON NORMALS: no pedal edema Neuro: COMMON NORMALS: patient oriented x3, CN's II-XII intact bilaterally and moves all extremities Psych: COMMON NORMALS: mental status grossly normal Data 02/09/24 19:40 02/09/24 19:40 Micro: Microbiology 02/09/24 21:17 Blood Culture - Preliminary Blood SPECIMEN COLLECTED 02/09/24 21:14 Blood Culture - Preliminary Blood SPECIMEN COLLECTED A&P Assessment and plan (1) Pneumonia: (2) Acute exacerbation of idiopathic pulmonary fibrosis: Plan Exacerbation of pulmonary emphysema, pulmonary fibrosis, with pneumonia ? Plan ? Sputum cultures next?blood cultures ? Respiratory viral panel ? Rocephin, azithromycin ? Solu-Medrol 125 followed by 40 mg every 8 hours ? DuoNeb ? Budesonide ? Monitor respiratory status closely ? Elevated BNP over 1999 continue home Lasix ? Full code ? Lovenox for DVT prophylaxis History of CAD, continue aspirin, statin, serial EKGs, serial troponins, telemetry monitoring Attestations Medical Necessity Statement*: Patient requires hospitalization, inpatient, greater than 2 midnights, for pulmonary fibrosis exacerbation pulmonary emphysema exacerbation, pneumonia Diagnoses Pneumonia J18.9 Acute exacerbation of idiopathic pulmonary fibrosis J84.112
[2024-02-09 22:33] LABS: Estmated Average Glucose 108; Hemoglobin A1C 5.4 % (4.0-6.0)
[2024-02-09 22:36] VITALS: BP 117/66; PULSE 107; RESP 16; O2SAT 91
[2024-02-09 22:38] LABS: NT Pro B Type Natriuretic Pept 1969 pg/mL (0-450); Thyroid Stimulating Hormone 1.46 uIU/mL (0.27-4.20)
[2024-02-09 22:49] LABS: Chol HDL Ratio 1.98 mg/dL (0.0-4.40); Cholesterol 117 mg/dL (0-200); HDL Cholesterol 59 mg/dL (60-100); LDL Cholesterol Calculated 41 mg/dL (50-129); LDL HDL Ratio 0.69 RATIO (0.00-3.22); Triglycerides 86 mg/dL (0-150)
[2024-02-09 22:50] VITALS: O2SAT 93
[2024-02-09 23:00] LABS: Troponin 5 2HR 13.89 ng/L (0-10); Troponin 5 2HR Delta 0.89 ABS# (0-10)
[2024-02-09] MEDS: LORazepam 1 mg Tablet 0.5 MG PO (23:01)
[2024-02-09] MEDS: pantoprazole 40 mg SDV IVP (23:01)
[2024-02-09] MEDS: enoxaparin 40 mg/0.4 mL Syringe SUBCUT (23:02)
[2024-02-09] MEDS: azithromycin 500 MG in sodium chloride 0.9% 250 ML 250 MG IV (23:02)
[2024-02-09 23:10] LABS: Adenovirus Not Detected (NOT DETECT); Chlamydia Pneumoniae Not Detected (NOT DETECT); Coronavirus 229E,HKU1,NL63,OC4 Not Detected (NOT DETECT); Human Metapneumovirus Not Detected (NOT DETECT); Human Rhinovirus/Enterovirus Not Detected (NOT DETECT); Influenza A Not Detected (NOT DETECT); Influenza A H1 Not Detected (NOT DETECT); Influenza A H1-2009 Not Detected (NOT DETECT); Influenza A H3 Not Detected (NOT DETECT); Influenza B Not Detected (NOT DETECT); Mycoplasma Pneumoniae Not Detected (NOT DETECT); Parainfluenza Virus Type 1 Not Detected (NOT DETECT); Parainfluenza Virus Type 2 Not Detected (NOT DETECT); Parainfluenza Virus Type 3 Not Detected (NOT DETECT); Parainfluenza Virus Type 4 Not Detected (NOT DETECT); Respiratory Syncytial Virus A Not Detected (NOT DETECT); Respiratory Syncytial Virus B Not Detected (NOT DETECT); SARS-COV-2 Not Detected (NOT DETECT)
[2024-02-09 23:15] VITALS: BMI 15.9
--- NOTE | 2024-02-09 23:27 | ECG_ITS ---
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 Measurements Intervals [place] Rate: 99 P: 44 OR: 164 QRS: 1 QRSD: 77 T: 61 QT: 355 QTc: 456 Interpretive Statements SINUS RHYTHM WITH FREQUENT VENTRICULAR PREMATURE COMPLEXES MODERATE ST DEPRESSION [0.05+ mV ST DEPRESSION] Compared to ECG 02/09/2024 22:02:34 ST (T wave) deviation now present Electronically Signed On 02-10-2024 18:03:32 CDT by Isabel Hardwick M.D. [id number]
[2024-02-09] MEDS: acetaminophen 325 mg Tablet 650 MG PO (23:44)
[2024-02-10] VITALS (17 sets, daily range): BP systolic 84–130; BP diastolic 50–77; PULSE 78–113; RESP 16–161; TEMP 36.3–36.8; O2SAT 92–97; BMI 15.9
[2024-02-10 03:22] LABS: Basophils % 0.1 %; Lymphocytes # 1.3 10^3/uL (0.8-4.8); Lymphocytes % 8.5 %; Mean Corpuscular HGB Conc 32.9 g/dL (30-55); Mean Corpuscular Hemoglobin 32.5 pg (27-33); Mean Corpuscular Volume 98.9 fl (85-98); Mean Platelet Volume 9.8 fL (7.4-10.4); Monocytes # 0.1 10^3/uL (0.2-0.9); Monocytes % 0.5 %; Neutrophils # 13.75 10^3/uL (1.8-7.7); Neutrophils % 90.4 %; Nucleated Red Blood Cells % 0 %; Platelet Count 311 10^3/cmm (157-399); Red Blood Count 3.54 10^6/uL (3.85-5.65); Red Cell Distribution Width 13.6 % (12.1-15.1); White Blood Count 15.21 10^3/uL (3.29-11.43)
--- NOTE | 2024-02-10 03:27 | ECG_ITS ---
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 Measurements Intervals [place] Rate: 95 P: 51 [place]: 190 QRS: -8 QRSD: 73 T: -28 QT: 357 QTc: 451 Interpretive Statements SINUS RHYTHM WITH FREQUENT VENTRICULAR PREMATURE COMPLEXES POSSIBLE LEFT ATRIAL ENLARGEMENT [-0.1mV P-WAVE IN V1/V2] LOW QRS VOLTAGE IN PRECORDIAL LEADS [QRS DEFLECTION < 1.0 mV IN CHEST LEADS] NONSPECIFIC ST & T-WAVE ABNORMALITY ABNORMAL RHYTHM ECG Compared to ECG 02/10/2024 00:36:41 Low QRS voltage now present T-wave abnormality now present ST (T wave) deviation no longer present Electronically Signed On 02-10-2024 18:03:50 CDT by Isabel Hardwick M.D. [id number]
[2024-02-10 03:40] LABS: Troponin 5 6HR 12.15 ng/L (0-10)
[2024-02-10 03:41] LABS: Troponin 5 6HR Delta -0.85 ng/L (0-12)
[2024-02-10 04:02] LABS: Anion Gap 15.7 (5-19); Blood Urea Nitrogen 22 mg/dL (8-23); Calcium 9.6 mg/dL (8.5-10.5); Carbon Dioxide 22 mmol/L (22-29); Chloride 97 mmol/L (98-107); Creatinine Clr Calc Pharmacy 29.5059; Glucose 180 mg/dL (65-115); Magnesium 1.6 mg/dL (1.7-2.3); Osmolality Calculated 280 mOsm/kg (285-295); Potassium 3.7 mmol/L (3.5-5.1); Sodium 131 mmol/L (136-145)
[2024-02-10] MEDS: methylPREDNISolone sod succ 40 mg/mL INJ IVP ×3 (05:48→22:11)
[2024-02-10] MEDS: acetaminophen 325 mg Tablet 650 MG PO ×2 (05:48→22:23)
[2024-02-10] MEDS: budesonide 0.5 mg/2 mL Neb INHALATION ×2 (07:52→20:03)
[2024-02-10] MEDS: ipratropium-albuterol 3 mL Neb INHALATION ×4 (07:52→20:03)
--- NOTE | 2024-02-10 09:20 | P.PN_ITS ---
Subjective 2 Subjective: Patient is not requiring oxygen feeling better No acute chest pain or shortness of breath Patient mostly gets coughing spells overnight Vitals/I&O/Wt Last Vital Signs Temp 97.3 F L 02/10/24 07:49 Pulse 103 H 02/10/24 07:55 Resp 20 H 02/10/24 07:55 BP 86/50 02/10/24 07:49 Pulse Ox 92 02/10/24 07:55 O2 Del Method Room Air 02/10/24 07:55 02/09/24 02/10/24 02/10/24 22:59 06:59 14:59 Intake Total 50 / 50 750 / 800 120 / 120 Balance 50 / 50 750 / 800 120 / 120 Weight last 48 hrs Weight 39.463 kg Weight 39.463 kg Weight 37.648 kg Physical Exam 2 Narrative: She is on room air Pleasant cough Euvolemic GCS 15 Pleasant No acute chest pain or shortness of breath Hemodynamically stable No acute discomfort Data 02/10/24 03:11 02/10/24 03:11 Micro: Microbiology 02/09/24 21:17 Blood Culture - Preliminary Blood SPECIMEN COLLECTED 02/09/24 21:14 Blood Culture - Preliminary Blood SPECIMEN COLLECTED A&P Assessment and plan (1) Pulmonary hypertension: (2) Severe tricuspid regurgitation: (3) Compression fracture of T7 vertebra: Qualifiers: Encounter type: initial encounter Qualified Code(s): S22.060A - Wedge compression fracture of T7-T8 vertebra, initial encounter for closed fracture (4) Pneumonia: (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20 Severe tricuspid regurgitation I07.1 Compression fracture of T7 vertebra, initial encounter S22.060A Encounter type: initial encounter Pneumonia J18.9 Pulmonary emphysema with fibrosis of lung J43.9; J84.10 Productive cough R05.8 SOB (shortness of breath) R06.02 Acute exacerbation of idiopathic pulmonary fibrosis J84.112
[2024-02-10] MEDS: aspirin 81 mg EC Tablet PO (09:29)
[2024-02-10 16:12] LABS: Add Urine Culture? No; Add Urine Microscopic? YES; Bilirubin Urine Neg (Negative); Blood Urine Neg (Negative); Glucose Urine UA Norm (Normal); Ketones Urine Negative (Negative); Leukocyte Esterase Urine Trace (Negative); Nitrate Urine Negative (Negative); Protein Urine Neg (Negative); RBC Urine RARE /hpf (0-2); Specific Gravity, Urine 1.015 (1.005-1.030); Squamous Epithelial Cell Urine 0-4 /hpf (0-5); Urine Appearance Clear (CLEAR); Urine Color Yellow (Yellow); Urobilinogen Urine Neg (Negative); WBC Urine 0-4 /hpf (0-5); pH Urine 5 (5-7)
[2024-02-10] MEDS: cefTRIAXone 1,000 MG in sodium chloride 0.9% (plus) 50 ML 100 MG IV (20:35)
[2024-02-10] MEDS: atorvastatin 40 mg Tablet PO (20:35)
[2024-02-10] MEDS: azithromycin 500 MG in sodium chloride 0.9% 250 ML 250 MG IV (22:10)
[2024-02-10] MEDS: pantoprazole 40 mg SDV IVP (22:11)
[2024-02-10] MEDS: enoxaparin 40 mg/0.4 mL Syringe SUBCUT (22:11)
[2024-02-10] MEDS: benzonatate 100 mg Capsule PO (22:11)
[2024-02-11] VITALS (7 sets, daily range): BP systolic 89–93; BP diastolic 60–62; PULSE 81–103; RESP 16–17; TEMP 36.6–37; O2SAT 94–98
[2024-02-11] MEDS: methylPREDNISolone sod succ 40 mg/mL INJ IVP (05:39)
[2024-02-11 06:29] LABS: Basophils % 0.2 %; Hematocrit 32.2 % (36-47); Lymphocytes # 1.2 10^3/uL (0.8-4.8); Lymphocytes % 7.3 %; Mean Corpuscular HGB Conc 32.6 g/dL (30-55); Mean Corpuscular Hemoglobin 32.9 pg (27-33); Mean Corpuscular Volume 100.9 fl (85-98); Mean Platelet Volume 9.8 fL (7.4-10.4); Monocytes # 0.4 10^3/uL (0.2-0.9); Monocytes % 2.2 %; Neutrophils # 14.28 10^3/uL (1.8-7.7); Neutrophils % 89.7 %; Nucleated Red Blood Cells % 0 %; Platelet Count 340 10^3/cmm (157-399); Red Blood Count 3.19 10^6/uL (3.85-5.65); Red Cell Distribution Width 14.2 % (12.1-15.1); White Blood Count 15.92 10^3/uL (3.29-11.43)
[2024-02-11 06:50] LABS: Anion Gap 14.7 (5-19); Blood Urea Nitrogen 28 mg/dL (8-23); Calcium 10.1 mg/dL (8.5-10.5); Carbon Dioxide 24 mmol/L (22-29); Chloride 99 mmol/L (98-107); Creatinine Clr Calc Pharmacy 35.8037; Glucose 152 mg/dL (65-115); Osmolality Calculated 286 mOsm/kg (285-295); Potassium 3.7 mmol/L (3.5-5.1); Sodium 134 mmol/L (136-145)
[2024-02-11] MEDS: benzonatate 100 mg Capsule PO (07:59)
[2024-02-11] MEDS: aspirin 81 mg EC Tablet PO (07:59)
--- NOTE | 2024-02-11 08:16 | PM.DCS ---
Discharge Providers Date of Admission: 02/09/24 22:05 Date of Discharge: February 11, 2024 Attending Provider at Admission: Andre Bunn MD Attending Provider at Discharge: Carolann Guillen MD Primary Care Provider: Eber Albarran MD Diagnoses at Discharge Discharge Diagnosis (1) Pulmonary hypertension: Status: Acute (2) Severe tricuspid regurgitation: Status: Acute (3) Compression fracture of T7 vertebra: Status: Acute Qualifiers: Encounter type: initial encounter Qualified Code(s): S22.060A - Wedge compression fracture of T7-T8 vertebra, initial encounter for closed fracture (4) Pneumonia: Status: Acute (5) Pulmonary emphysema with fibrosis of lung: Status: Acute (6) Productive cough: Status: Acute (7) SOB (shortness of breath): Status: Acute (8) Acute exacerbation of idiopathic pulmonary fibrosis: Status: Acute Reason for Visit Reason for Visit: sob, pnemonia+ weak cant eat Hospital Course Hospital Course 83 female who was admitted for management evaluation of community-acquired pneumonia with underlying interstitial fibrosis, she was given antibiotics, her white count was high secondary to use of steroids, she remained hemodynamically stable, no respite distress at all, she did not require oxygen, home oxygen evaluation was done before discharge, cultures remain negative, patient was discharged home with stable hemodynamics, antibiotics she does have inhalers at home. Physical Exam Narrative: Pleasant cooperative S1, S2 GCS 15 Nonfocal neuroexam Currently on room air Hemodynamic stable Discharge Data Studies Completed and Pending Completed Studies During Hospitalization Category Date Time Status XR chest 1V portable [id number] Stat Exams 02/09/24 19:29 Completed Pending at discharge Category Date Time Status Blood Culture Stat Lab 02/09/24 21:17 Results Sputum Culture and Gram Stain Stat Lab 02/09/24 22:10 Uncollected Radiology Impressions Chest X-Ray 02/09/24 19:29 IMPRESSION: 1. Increasing right basilar opacity is probably combination of pleural fluid and atelectasis/consolidation. 2. Chronic pulmonary fibrosis Laboratory Results WBC 15.92 10^3/uL (3.29-11.43) H 02/11/24 05:53 RBC 3.19 10^6/uL (3.85-5.65) L 02/11/24 05:53 Hgb 10.50 g/dL (11.27-16.99) L 02/11/24 05:53 Hct 32.2 % (36-47) L 02/11/24 05:53 MCV 100.9 fl (85-98) H 02/11/24 05:53 MCH 32.9 pg (27-33) 02/11/24 05:53 MCHC 32.6 g/dL (30-55) 02/11/24 05:53 RDW 14.2 % (12.1-15.1) 02/11/24 05:53 Plt Count 340 10^3/cmm (157-399) 02/11/24 05:53 MPV 9.8 fL (7.4-10.4) 02/11/24 05:53 Neut % (Auto) 89.7 % 02/11/24 05:53 Lymph % (Auto) 7.3 % 02/11/24 05:53 [place] % (Auto) 2.2 % 02/11/24 05:53 Eos % (Auto) 0.0 % 02/11/24 05:53 Baso % (Auto) 0.2 % 02/11/24 05:53 Neut # (Auto) 14.28 10^3/uL (1.8-7.7) H 02/11/24 05:53 Lymph # (Auto) 1.2 10^3/uL (0.8-4.8) 02/11/24 05:53 [place] # (Auto) 0.4 10^3/uL (0.2-0.9) 02/11/24 05:53 Eos # (Auto) 0.0 10^3/uL (0.0-0.8) 02/11/24 05:53 Baso # (Auto) 0.0 10^3/uL (0.0-0.1) 02/11/24 05:53 Nucleated RBC % (auto) 0 % 02/11/24 05:53 Nucleated RBCs # 0.0 /100WBC 02/11/24 05:53 Sodium 134 mmol/L (136-145) L 02/11/24 05:53 Potassium 3.7 mmol/L (3.5-5.1) 02/11/24 05:53 Chloride 99 mmol/L (98-107) 02/11/24 05:53 Carbon Dioxide 24 mmol/L (22-29) 02/11/24 05:53 Anion Gap 14.7 (5-19) 02/11/24 05:53 BUN 28 mg/dL (8-23) H 02/11/24 05:53 Creatinine 0.9 mg/dL (0.5-0.9) 02/11/24 05:53 GFR Calculation Not Reportable 02/11/24 05:53 Glucose 152 mg/dL (65-115) H 02/11/24 05:53 Estimat Average Glucose 108 02/09/24 19:40 Hemoglobin A1c 5.4 % (4.0-6.0) 02/09/24 19:40 Calculated Osmolality 286 mOsm/kg (285-295) 02/11/24 05:53 Lactic Acid 1.8 mmol/L (0.5-2.2) 02/09/24 19:40 Calcium 10.1 mg/dL (8.5-10.5) 02/11/24 05:53 Phosphorus 3.0 mg/dL (2.5-4.5) 02/10/24 03:11 Magnesium 1.6 mg/dL (1.7-2.3) L 02/10/24 03:11 Total Bilirubin 0.6 mg/dL (0.15-1.2) 02/09/24 19:40 AST 21 U/L (0-32) 02/09/24 19:40 ALT 8 U/L (0-33) 02/09/24 19:40 Alkaline Phosphatase 93 U/L (35-105) 02/09/24 19:40 Troponin T Baseline 13 ng/L (0-10) H 02/09/24 19:40 Troponin T 120 Minute 13.89 ng/L (0-10) H 02/09/24 22:21 Delta Troponin T 0.89 ABS# (0-10) 02/09/24 22:21 Troponin T Hi Sens 6Hr 12.15 ng/L (0-10) H 02/10/24 03:11 Troponin T Hi Sens 6Hr Delta -0.85 ng/L (0-12) L 02/10/24 03:11 NT-Pro-B Natriuret Pep 1969 pg/mL (0-450) H 02/09/24 19:40 NT-Pro-B Natriuret Pep 2001 pg/mL (0-450) H 02/09/24 19:40 Total Protein 8.7 g/dL (6.6-8.7) 02/09/24 19:40 Albumin 3.8 g/dL (3.5-5.2) 02/09/24 19:40 Globulin 4.9 g/dL (1.3-4.6) H 02/09/24 19:40 Triglycerides 86 mg/dL (0-150) 02/09/24 19:40 Cholesterol 117 mg/dL (0-200) 02/09/24 19:40 LDL Cholesterol, Calc 41 mg/dL (50-129) L 02/09/24 19:40 HDL Cholesterol 59 mg/dL (60-100) L 02/09/24 19:40 LDL/HDL Ratio 0.69 RATIO (0.00-3.22) 02/09/24: Cholesterol/HDL Ratio 1.98 mg/dL (0.0-4.40) 02/09/24 19:40 Procalcitonin 0.10 ng/mL (0-0.5) 02/09/24 19:40 TSH 1.46 uIU/mL (0.27-4.20) 02/09/24 19:40 Urine Color Yellow (Yellow) 02/10/24 15:45 Urine Appearance Clear (CLEAR) 02/10/24 15:45 Urine pH 5 (5-7) 02/10/24 15:45 Ur Specific [place] 1.015 (1.005-1.030) 02/10/24 15:45 Urine Protein Neg (Negative) 02/10/24 15:45 Urine Glucose (UA) Norm (Normal) 02/10/24 15:45 Urine Ketones Negative (Negative) 02/10/24 15:45 Urine Blood Neg (Negative) 02/10/24 15:45 Urine Nitrate Negative (Negative) 02/10/24 15:45 Urine Bilirubin Neg (Negative) 02/10/24 15:45 Urine Urobilinogen Neg mg/dL (Negative) 02/10/24 15:45 Ur Leukocyte Esterase Trace (Negative) H 02/10/24 15:45 Urine RBC Rare /hpf (0-2) 02/10/24 15:45 Urine WBC 0-4 /hpf (0-5) H 02/10/24 15:45 Ur Squamous Epith Cells 0-4 /hpf (0-5) H 02/10/24 15:45 Amorphous Sediment Not Reportable 02/10/24 15:45 Urine Bacteria None /hpf (NONE) 02/10/24 15:45 Adenovirus (PCR) Not detected (NOT DETECT) 02/09/24 21:16 C. pneumoniae DNA (PCR) Not detected (NOT DETECT) 02/09/24 21:16 Coronavirus 229E (PCR) Not detected (NOT DETECT) 02/09/24 21:16 Human Metapneumovir PCR Not detected (NOT DETECT) 02/09/24 21:16 Influenza A (H1) PCR Not detected (NOT DETECT) 02/09/24 21:16 Influ A (H1/09) PCR Not detected (NOT DETECT) 02/09/24 21:16 Influenza A (H3) PCR Not detected (NOT DETECT) 02/09/24 21:16 Influenza Type A (PCR) Not detected (NOT DETECT) 02/09/24 21:16 Influenza Type B (PCR) Not detected (NOT DETECT) 02/09/24 21:16 M. pneumoniae (PCR) Not detected (NOT DETECT) 02/09/24 21:16 Parainfluenza 1 (PCR) Not detected (NOT DETECT) 02/09/24 21:16 Parainfluenza 2 (PCR) Not detected (NOT DETECT) 02/09/24 21:16 Parainfluenza 3 (PCR) Not detected (NOT DETECT) 02/09/24 21:16 Parainfluenza 4 (PCR) Not detected (NOT DETECT) 02/09/24 21:16 RSV Type A (PCR) Not detected (NOT DETECT) 02/09/24 21:16 RSV Type B (PCR) Not detected (NOT DETECT) 02/09/24 21:16 Entero/Rhino (PCR) Not detected (NOT DETECT) 02/09/24 21:16 SARS-CoV-2 (PCR) Not detected (NOT DETECT) 02/09/24 21:16 Vitals Last Vital Signs Temp 97.9 F 02/11/24 07:39 Pulse 81 02/11/24 07:39 Resp 17 02/11/24 07:39 BP 92/62 02/11/24 07:39 Pulse Ox 95 02/11/24 07:39 O2 Del Method Room Air 02/10/24 20:03 Discharge Plan Discharge Patient Disposition: Home Condition: Stable Prescriptions: New levofloxacin 750 mg tablet 750 mg PO DAILY 7 Days Qty: 7 0RF Continued (DME) Acapella See Rx Instructions .Route .MEDSUPPLY Qty: 1 0RF Rx Instructions: As directed guaifenesin [Mucinex] 600 mg tablet extended release 12hr 600 mg PO Q12H PRN (Reason: congestion) Qty: 60 6RF prednisone 5 mg tablet 5 mg PO DAILY Hold Instructions: Resume on 04/22/23. tiotropium bromide [Spiriva with HandiHaler] 18 mcg capsule, w/inhalation device 1 cap inhalation DAILY Qty: 60 6RF Rx Instructions: puncture 1 cap using device; one dose = 2 inhalations fluticasone propionate [Flonase Allergy Relief] 50 mcg/actuation spray,suspension 2 spray intranasal DAILY PRN (Reason: Allergy Symptoms) Rx Instructions: administer into each nostril furosemide 20 mg tablet 20 mg PO DAILY Qty: 90 3RF Hold Instructions: Resume on 10/23/23. Entresto 24-26 mg tablet 0.5 tab PO BID Qty: 30 1RF Rx Instructions: Take 1/2 tab twice daily albuterol sulfate 90 mcg/actuation HFA aerosol inhaler 2 puff INHALATION Q4H PRN (Reason: Shortness Of Breath) sennosides-docusate sodium [Stool Softener-Laxative] 8.6-50 mg Tablet 1 tab PO DAILY Qty: 10 0RF tramadol 50 mg tablet 50 mg PO Q8H PRN (Reason: Pain) Qty: 20 0RF acetaminophen 500 mg Tablet 500 mg PO Q6H PRN (Reason: Pain) lorazepam 1 mg tablet 0.5 - 1 mg PO DAILY PRN (Reason: Anxiety) atorvastatin 40 mg Tablet 40 mg PO BEDTIME 30 Days Qty: 30 1RF cetirizine 10 mg tablet 10 mg PO BEDTIME PRN (Reason: allergy symptoms) aspirin 81 mg Tablet,Delayed Release (Dr/Ec) 81 mg PO DAILY@09 nitroglycerin [Nitrostat] 0.4 mg Tablet, Sublingual 0.4 mg SUBLINGUAL Q5M PRN (Reason: Chest Pain) Rx Instructions: do not exceed 3 doses per episode Discharge Orders: Discharge Order (Routine); Ordered 02/11/24 Ordered By: Carolann Guillen Referrals: Eber Albarran MD [Primary Care Provider] - 02/18/24 3:00 pm Patient Instructions: Levofloxacin (By mouth) (Levaquin, Levaquin Leva-edmund), Pneumonitis (DC), Pulmonary Fibrosis (DC), Opioid Safety Discharge Attestations Time Spent in Discharge Care*: less than 30 min Status at Discharge: Cognitive status at discharge: cognitively intact, Behavioral status at discharge: cooperative, Quality Metrics Clinical Quality Measures [ No reported AMI, CVA or VTE this stay] Coding Level of Care Code Acute Code for Chg Fwd Diagnoses Pulmonary hypertension I27.20 Severe tricuspid regurgitation I07.1 Compression fracture of T7 vertebra, initial encounter S22.060A Encounter type: initial encounter Pneumonia J18.9 Pulmonary emphysema with fibrosis of lung J43.9; J84.10 Productive cough R05.8 SOB (shortness of breath) R06.02 Acute exacerbation of idiopathic pulmonary fibrosis J84.112
[2024-02-11] MEDS: ipratropium-albuterol 3 mL Neb INHALATION (09:01)
[2024-02-11] MEDS: budesonide 0.5 mg/2 mL Neb INHALATION (09:01)
--- NOTE | 2024-02-11 09:12 | PC.NURSE ---
Discharge Note Patient discharged to home via private vehicle accompanied by daughter. Discharge instructions reviewed with patient and/or financial representative. Mobile pharmacy medications and/or prescriptions provided. Belongings/home medications returned.
== END 2024-02-11 09:13 | disposition home or self-care (01) | DRG 196 ==
LOC: ER 21:45 → MEDSURG 22:16
PROVIDERS: Admitting Provider Family Medicine; Emergency Provider Nurse Practitioner Family; PCP Family Medicine; Visit Provider Internal Medicine
DX: J84.112 Idiopathic pulmonary fibrosis (principal); J18.9 Pneumonia, unspecified organism; I50.22 Chronic systolic (congestive) heart failure; I42.9 Cardiomyopathy, unspecified; J43.9 Emphysema, unspecified; I07.1 Rheumatic tricuspid insufficiency; I27.20 Pulmonary hypertension, unspecified; Z79.52 Long term (current) use of systemic steroids; Z79.82 Long term (current) use of aspirin; Z87.891 Personal history of nicotine dependence; I25.10 Atherosclerotic heart disease of native coronary artery without angina pectoris
CPT/HCPCS: 36415; 71045; 80048; 80053; 80061; 81001; 83036; 83605; 83735; 83880; 84100; 84145; 84443; 84484; 85025; 87040; 87486; 87581; 87633; 93005; 94640; 94664; 94760; 96365; 96367; 96372; 96375; 96376; 99285; C9113; J0456; J0696; J1650; J2919; J7030; J7050; J7626

== ENCOUNTER 2024-05-17 17:22 | Emergency (ER) | payer MEDICARE, SELFPAY ==
[2024-05-17 17:49] VITALS: BP 113/59; PULSE 113; RESP 17; TEMP 36.8; O2SAT 89; BMI 15.5
--- NOTE | 2024-05-17 18:01 | XRR_ITS ---
PROCEDURE INFORMATION: Exam: XR Chest Exam date and time: 05/17/2024 6:12 PM Age: 83 years old Clinical indication: Cough; Additional info: Concern developing pneumonia TECHNIQUE: Imaging protocol: Radiologic exam of the chest. Views: 2 views. COMPARISON: 1. CR XR chest 1V portable [id number] 02/09/2024 8:[address] chest wo con [id number] 06/25/2023 1:42 PM FINDINGS: Airway: The airways are patent. Lungs: Large right lung base consolidation which is relatively similar to prior. Lung hyperlucency, favoring emphysema. Diffuse peripheral and basal interstitial prominence/reticulation. Pleural spaces: There is blunting of the right costophrenic angle. There is blunting of the left costophrenic angle. There is no evidence of pneumothorax. Heart/Mediastinum: No cardiomegaly. Vasculature: Calcified aortic knob. Bones/joints: Lower thoracic kyphoplasty changes. No acute skeletal abnormality. Soft tissues: No acute soft tissue findings. XR/XR chest 2V* [id number] IMPRESSION: 1. Moderate/severe right basal pneumonia and a suggested moderate right pleural effusion in a background of known chronic interstitial lung disease/pulmonary fibrosis. 2. Small left pleural effusion versus chronic scarring/atelectasis.
[2024-05-17 18:09] LABS: Basophils # 0.1 10^3/uL (0.0-0.1); Basophils % 0.4 %; Eosinophils # 0.1 10^3/uL (0.0-0.8); Eosinophils % 0.4 %; Hematocrit 40.4 % (36-47); Lymphocytes # 3.5 10^3/uL (0.8-4.8); Lymphocytes % 22.3 %; Mean Corpuscular HGB Conc 32.2 g/dL (30-55); Mean Corpuscular Hemoglobin 31.6 pg (27-33); Mean Corpuscular Volume 98.1 fl (85-98); Mean Platelet Volume 10.1 fL (7.4-10.4); Monocytes # 0.8 10^3/uL (0.2-0.9); Neutrophils # 11.32 10^3/uL (1.8-7.7); Neutrophils % 71.5 %; Nucleated Red Blood Cells % 0 %; Platelet Count 381 10^3/cmm (157-399); Red Blood Count 4.12 10^6/uL (3.85-5.65); Red Cell Distribution Width 13.4 % (12.1-15.1); White Blood Count 15.84 10^3/uL (3.29-11.43)
--- NOTE | 2024-05-17 18:13 | W.ED.CHESTPA ---
Documented by User: Will Vaughn MD 05/17/24 19:16 HPI - Chest Pain General: Chief Complaint: Chest Pain Stated Complaint: FALL Time Seen by Provider: 05/17/24 17:35 History of Present Illness: 83-year-old female presents emergency department with her daughter with progressive cough over the week. She does have a history of significant lung disease and reports her normal SpO2 is between 88 and 92%. She had a bad bout of pneumonia that left her with pulmonary fibrosis in her left lung, according to their report. Patient reports that her cough is starting to sound more wet and today she was very fatigued. These are the symptoms she had right before she got really sick with pneumonia the first time. She denies any headache, sore throat, ear pain or significant runny nose. She denies any nausea vomiting diarrhea. She had some chest discomfort in her left chest when she was coughing at home. Since it was in the left chest she went ahead and took some nitroglycerin and aspirin as a precaution. She does not currently have any chest discomfort. Associated symptoms: Deny abdominal pain, fever(s), nausea, syncope or vomiting Related Data Home Medications Medication Instructions Recorded Confirmed albuterol sulfate 90 mcg/actuation 2 puff inhalation Q4H PRN 04/17/22 02/09/24 aerosol inhaler Shortness Of Breath acetaminophen 500 mg tablet 500 mg PO Q6H PRN Pain 01/22/23 02/09/24 lorazepam 1 mg tablet 0.5 - 1 mg PO DAILY PRN Anxiety 01/22/23 02/09/24 fluticasone propionate 50 2 spray intranasal DAILY PRN 02/06/23 02/09/24 mcg/actuation nasal Allergy Symptoms spray,suspension (Flonase Allergy Relief) aspirin 81 mg tablet,delayed 81 mg PO DAILY@04/05/23 02/09/24 release nitroglycerin 0.4 mg sublingual 0.4 mg sublingual Q5M PRN Chest 04/05/23 02/09/24 tablet (Nitrostat) Pain cetirizine 10 mg tablet 10 mg PO BEDTIME PRN allergy 06/10/23 02/09/24 symptoms prednisone 5 mg tablet 5 mg PO DAILY 06/10/23 02/09/24 Previous Rx's Medication Instructions Recorded atorvastatin 40 mg tablet 40 mg PO BEDTIME 30 days #30 tabs 01/30/23 Acapella #1 ea 06/10/23 guaifenesin 600 mg tablet, 600 mg PO Q12H PRN congestion #60 06/10/23 extended release 12 hr (Mucinex) tabs tiotropium bromide 18 mcg capsule 1 cap inhalation DAILY #60 06/10/23 with inhalation device (Spiriva inhalations with HandiHaler) furosemide 20 mg tablet 20 mg PO DAILY #90 tabs 09/03/23 sennosides 8.6 mg-docusate sodium 1 tab PO DAILY #10 tabs 10/09/23 50 mg tablet (Stool Softener-Laxative) tramadol 50 mg tablet 50 mg PO Q8H PRN Pain #20 tabs 10/09/23 sacubitril 24 mg-valsartan 26 mg 0.5 tab PO BID #30 tabs 03/19/24 tablet (Entresto) levofloxacin 750 mg tablet 750 mg PO DAILY 7 days #7 tabs 05/17/24 prednisone 20 mg tablet 20 mg PO BID 5 days #10 tabs 05/17/24 Allergies Allergy/AdvReac Type Severity Reaction Status Date / Time meperidine [From Demerol] Allergy ADR-Halluci Verified 02/09/24 18:22 nating Review of Systems General: Reports: 10 or more systems reviewed and unremarkable except in HPI and below Const: Denies: fever(s), chills or body aches Eyes: Denies: change in vision ENMT: Denies: throat pain Card: Denies: edema or syncope GI: Denies: abdominal pain, nausea, vomiting or diarrhea : Denies: flank pain, dysuria or urinary frequency Musc: Denies: neck pain, back pain, extremity pain or extremity swelling Skin/Breast: Denies: rash or erythema Neuro: Denies: headache(s), numbness in extremities, weakness in extremities, lack of coordination or difficulty walking PFSH ED PFSH: Medical History (Updated 05/17/24 @ 19:11 by Will Vaughn MD) Acute exacerbation of idiopathic pulmonary fibrosis SOB (shortness of breath) Productive cough NSTEMI (non-ST elevated myocardial infarction) Pulmonary hypertension Severe tricuspid regurgitation Pulmonary emphysema with fibrosis of lung Compression fracture of T7 vertebra Bronchiectasis Sepsis Hyponatremia Leukocytosis Right lower lobe pneumonia T12 vertebral fracture Atherosclerotic heart disease of [place] coronary artery with other forms of angina pectoris Ischemic cardiomyopathy Cardiomyopathy Traumatic compression fracture of T12 thoracic vertebra Allergic rhinitis COVID Pneumonia Surgical History History of abdominal surgery H/O section Family History Father Myocardial infarction Family/Other Breast cancer Social History Smoking and tobacco/nicotine status: former use of tobacco/nicotine Quit status (tobacco/nicotine): has quit using Year quit tobacco: 50-60 years ago Alcohol intake: never Substance/Drug Use: never Physical Exam Narrative: EXAM NARRATIVE: Thin, underweight. Respiratory rate 22. Crackles throughout posterior lungs bilaterally. Diminished posteriorly, normal anteriorly. Heart rate elevated but feels regular. Normal alertness, orientation, conversational. Nontoxic appearance. Radial pulse 1+. Const: COMMON NORMALS: no limitations and alert EXAM LIMITATIONS: no altered mental status HENMT: COMMON NORMALS: normocephalic, atraumatic and external ears normal HEAD & SCALP: normocephalic and atraumatic EXTERNAL EAR: Yes external ears normal MOUTH: no muffled voice Eye: COMMON NORMALS: EOMs intact bilaterally, conjunctivae normal and no scleral icterus CONJUNCTIVA: Yes conjunctivae normal Neck/C-Spine: COMMON NORMALS: no JVD GENERAL: Yes normal visual inspection and Yes trachea midline Cardio: COMMON NORMALS: no JVD and regular rhythm RHYTHM: regular rhythm GI: COMMON NORMALS: Soft to palpation and non-tender PALPATION: Yes Soft to palpation and No Guarding due to palpation present (GI) Extremity: COMMON NORMALS: normal to inspection Neuro: COMMON NORMALS: moves all extremities, no focal motor deficits and no sensory deficits noted SENSORIUM/ORIENTATION: Yes alert SPEECH: speech normal Psych: COMMON NORMALS: mental status grossly normal, Normal thought process present, cooperative, normal affect and speech normal SPEECH: Yes normal speech THOUGHT PROCESS: Normal thought process present Skin: COMMON NORMALS: no rashes or lesions noted, turgor normal and no jaundice GENERAL SKIN EXAM: no rashes or lesions noted and turgor normal Course ED course: Chest x-ray is abnormal but does not appear significantly changed compared to previous. White blood Jose is chronically elevated. COVID is pending. EKG is pending. There is a mild bump in the creatinine. The patient might be slightly hemoconcentrated. At the same time, her BNP is up. This to be 1 of those cases where it is going to be difficult to ride the fine-line between making her too dehydrated with diuresis and trying to keep excess fluid out of her lungs so she can breathe. Going to give her 20 mg of Lasix IV as an additional dose to her 20 mg daily that she is already taken today. The official chest x-ray read is pending. I spoke to the patient at 7 PM at the end of my shift. I explained to her that my impression was that she needed to be empirically treated 1 where the other. I asked her if she wanted to be admitted and observed in the hospital. She reports she would rather be at home. Her daughter and her have oxygen available to them, blood pressure cuff heart rate monitoring, thermometer, etc. She has tolerated Levaquin in the past and did improve her symptoms. She is not out of any of her medications. Were going to increase her prednisone temporarily to 20 mg twice daily for 5 days. Will do Levaquin 750mg for 7 days. I am not going to increase her Lasix as she already has a tiny bump in her creatinine and seems to be slightly intravascularly dry. Continue Tia Tropium. Patient and daughter informed to return to the emergency department if she shows any signs of worsening. Going to handoff to Dr. Schneider pending her EKG, the remainder of her labs and COVID testing. Vital Signs: Vital signs: Vital Signs Temperature 98.3 F 05/17/24 17:49 Pulse Rate 113 H 05/17/24 17:49 Respiratory Rate 17 05/17/24 17:49 Blood Pressure 113/59 05/17/24 17:49 Pulse Oximetry 89 L 05/17/24 17:49 Oxygen Delivery Me thod Room Air 05/17/24 17:49 MDM - Chest Pain Medical Decision Making Differential diagnosis includes COPD exacerbation, pulmonary fibrosis, pneumonia, COVID, effusion, pulmonary edema CHF, pulmonary embolism, anemia, pneumothorax, pulmonary hypertension and multiple others Lab Data 05/17/24 17:04 05/17/24 17:04 Laboratory Results WBC 15.84 10^3/uL (3.29-11.43) H 05/17/24 17:04 RBC 4.12 10^6/uL (3.85-5.65) 05/17/24 17:04 Hgb 13.00 g/dL (11.27-16.99) 05/17/24 17:04 Hct 40.4 % (36-47) 05/17/24 17:04 MCV 98.1 fl (85-98) H 05/17/24 17:04 MCH 31.6 pg (27-33) 05/17/24 17:04 MCHC 32.2 g/dL (30-55) 05/17/24 17:04 RDW 13.4 % (12.1-15.1) 05/17/24 17:04 Plt Count 381 10^3/cmm (157-399) 05/17/24 17:04 MPV 10.1 fL (7.4-10.4) 05/17/24 17:04 Neut % (Auto) 71.5 % 05/17/24 17:04 Lymph % (Auto) 22.3 % 05/17/24 17:04 [place] % (Auto) 5.0 % 05/17/24 17:04 Eos % (Auto) 0.4 % 05/17/24 17:04 Baso % (Auto) 0.4 % 05/17/24 17:04 Neut # (Auto) 11.32 10^3/uL (1.8-7.7) H 05/17/24 17:04 Lymph # (Auto) 3.5 10^3/uL (0.8-4.8) 05/17/24 17:04 [place] # (Auto) 0.8 10^3/uL (0.2-0.9) 05/17/24 17:04 Eos # (Auto) 0.1 10^3/uL (0.0-0.8) 05/17/24 17:04 Baso # (Auto) 0.1 10^3/uL (0.0-0.1) 05/17/24 17:04 Nucleated RBC % (auto) 0 % 05/17/24 17:04 Nucleated RBCs # 0.0 /100WBC 05/17/24 17:04 Specimen Type Arterial 05/17/24 18:21 Sample Site Radial, left 05/17/24 18:21 ABG pH 7.52 (7.35-7.45) H 05/17/24 18:21 ABG pCO2 32.8 mmHg (35-45) L 05/17/24 18:21 ABG pO2 53.0 mmHg (80.0-100.0) L 05/17/24 18:21 ABG PO2/FiO2 Ratio 252 05/17/24 18:21 ABG HCO3 26.7 mmol/L (22-26) H 05/17/24 18:21 ABG Base Excess 3.9 mmol/L (-2.0-2.0) H 05/17/24 18:21 Alejo Test Pos 05/17/24 18:21 Hematocrit 34.0 % (37-47) L 05/17/24 18:21 O2 Delivery Device Room air 05/17/24 18:21 FiO2 21.0 % 05/17/24 18:21 Belt Operator ID Cak 05/17/24 18:21 Sodium 133 mmol/L (136-145) L 05/17/24 17:04 Potassium 4.1 mmol/L (3.5-5.1) 05/17/24 17:04 Chloride 91 mmol/L (98-107) L 05/17/24 17:04 Carbon Dioxide 26 mmol/L (22-29) 05/17/24 17:04 Anion Gap 20.1 (5-19) H 05/17/24 17:04 BUN 25 mg/dL (8-23) H 05/17/24 17:04 Creatinine 1.1 mg/dL (0.5-0.9) H 05/17/24 17:04 GFR Calculation Not Reportable 05/17/24 17:04 Glucose 104 mg/dL (65-115) 05/17/24 17:04 Calculated Osmolality 281 mOsm/kg (285-295) L 05/17/24 17:04 Lactic Acid 1.0 mmol/L (0.5-2.2) 05/17/24 17:04 Calcium 10.7 mg/dL (8.5-10.5) H 05/17/24 17:04 Total Bilirubin 0.5 mg/dL (0.15-1.2) 05/17/24 17:04 AST 24 U/L (0-32) 05/17/24 17:04 ALT 11 U/L (0-33) 05/17/24 17:04 Alkaline Phosphatase 111 U/L (35-105) H 05/17/24 17:04 Troponin T Baseline 13 ng/L (0-10) H 05/17/24 17:04 NT-Pro-B Natriuret Pep 2311 pg/mL (0-450) H 05/17/24 17:04 Total Protein 9.0 g/dL (6.6-8.7) H 05/17/24 17:04 Albumin 4.1 g/dL (3.5-5.2) 05/17/24 17:04 Globulin 4.9 g/dL (1.3-4.6) H 05/17/24 17:04 Procalcitonin 0.11 ng/mL (0-0.5) 05/17/24 17:04 SARS-CoV-2 Ag (Rapid) negative (Negative) 05/17/24 19:05 XR interpretation done by ED provider, pending radiology final review Discharge Plan Discharge Patient Disposition: Home Clinical Impression: Complaining of cough, Pulmonary fibrosis Condition: Stable Prescriptions: New levofloxacin 750 mg tablet 750 mg PO DAILY 7 Days Qty: 7 0RF prednisone 20 mg tablet 20 mg PO BID 5 Days Qty: 10 0RF No Action (DME) Acapella See Rx Instructions .Route .MEDSUPPLY Qty: 1 0RF Rx Instructions: As directed guaifenesin [Mucinex] 600 mg tablet extended release 12hr 600 mg PO Q12H PRN (Reason: congestion) Qty: 60 6RF prednisone 5 mg tablet 5 mg PO DAILY Hold Instructions: Resume on 04/22/23. tiotropium bromide [Spiriva with HandiHaler] 18 mcg capsule, w/inhalation device 1 cap inhalation DAILY Qty: 60 6RF Rx Instructions: puncture 1 cap using device; one dose = 2 inhalations fluticasone propionate [Flonase Allergy Relief] 50 mcg/actuation spray,suspension 2 spray intranasal DAILY PRN (Reason: Allergy Symptoms) Rx Instructions: administer into each nostril furosemide 20 mg tablet 20 mg PO DAILY Qty: 90 3RF Hold Instructions: Resume on 10/23/23. Entresto 24-26 mg tablet 0.5 tab PO BID Qty: 30 1RF Rx Instructions: Take 1/2 tab twice daily albuterol sulfate 90 mcg/actuation HFA aerosol inhaler 2 puff INHALATION Q4H PRN (Reason: Shortness Of Breath) sennosides-docusate sodium [Stool Softener-Laxative] 8.6-50 mg Tablet 1 tab PO DAILY Qty: 10 0RF tramadol 50 mg tablet 50 mg PO Q8H PRN (Reason: Pain) Qty: 20 0RF acetaminophen 500 mg Tablet 500 mg PO Q6H PRN (Reason: Pain) lorazepam 1 mg tablet 0.5 - 1 mg PO DAILY PRN (Reason: Anxiety) atorvastatin 40 mg Tablet 40 mg PO BEDTIME 30 Days Qty: 30 1RF cetirizine 10 mg tablet 10 mg PO BEDTIME PRN (Reason: allergy symptoms) aspirin 81 mg Tablet,Delayed Release (Dr/Ec) 81 mg PO DAILY@09 nitroglycerin [Nitrostat] 0.4 mg Tablet, Sublingual 0.4 mg SUBLINGUAL Q5M PRN (Reason: Chest Pain) Rx Instructions: do not exceed 3 doses per episode Discharge Orders: Discharge ED (Routine); Ordered 05/17/24 Ordered By: Michael Schneider Referrals: Eber Albarran MD [Primary Care Provider] - 1-3 days (F/u Cough. started levaquin and steroid burst) Discharge Activity: Increase activity as tolerated Patient Instructions: Pneumonia (ED), Opioid Safety, Pain Management Coding Level of Care Code ED Skip Hoist Operator for Chg Fwd Documented by User: Michael Schneider DO 05/17/24 19:53 HPI - Chest Pain General: Chief Complaint: Chest Pain Stated Complaint: FALL Time Seen by Provider: 05/17/24 17:35 Related Data Home Medications Medication Instructions Recorded Confirmed albuterol sulfate 90 mcg/actuation 2 puff inhalation Q4H PRN 04/17/22 02/09/24 aerosol inhaler Shortness Of Breath acetaminophen 500 mg tablet 500 mg PO Q6H PRN Pain 01/22/23 02/09/24 lorazepam 1 mg tablet 0.5 - 1 mg PO DAILY PRN Anxiety 01/22/23 02/09/24 fluticasone propionate 50 2 spray intranasal DAILY PRN 02/06/23 02/09/24 mcg/actuation nasal Allergy Symptoms spray,suspension (Flonase Allergy Relief) aspirin 81 mg tablet,delayed 81 mg PO DAILY@09 04/05/23 02/09/24 release nitroglycerin 0.4 mg sublingual 0.4 mg sublingual Q5M PRN Chest 04/05/23 02/09/24 tablet (Nitrostat) Pain cetirizine 10 mg tablet 10 mg PO BEDTIME PRN allergy 06/10/23 02/09/24 symptoms prednisone 5 mg tablet 5 mg PO DAILY 06/10/23 02/09/24 Previous Rx's Medication Instructions Recorded atorvastatin 40 mg tablet 40 mg PO BEDTIME 30 days #30 tabs 01/30/23 Acapella #1 ea 06/10/23 guaifenesin 600 mg tablet, 600 mg PO Q12H PRN congestion #60 06/10/23 extended release 12 hr (Mucinex) tabs tiotropium bromide 18 mcg capsule 1 cap inhalation DAILY #60 06/10/23 with inhalation device (Spiriva inhalations with HandiHaler) furosemide 20 mg tablet 20 mg PO DAILY #90 tabs 09/03/23 sennosides 8.6 mg-docusate sodium 1 tab PO DAILY #10 tabs 10/09/23 50 mg tablet (Stool Softener-Laxative) tramadol 50 mg tablet 50 mg PO Q8H PRN Pain #20 tabs 10/09/23 sacubitril 24 mg-valsartan 26 mg 0.5 tab PO BID #30 tabs 03/19/24 tablet (Entresto) levofloxacin 750 mg tablet 750 mg PO DAILY 7 days #7 tabs 05/17/24 prednisone 20 mg tablet 20 mg PO BID 5 days #10 tabs 05/17/24 Allergies Allergy/AdvReac Type Severity Reaction Status Date / Time meperidine [From Demerol] Allergy ADR-Halluci Verified 02/09/24 18:22 elsi [facility] ED [facility]: Medical History (Updated 05/17/24 @ 19:11 by Will Vaughn MD) Acute exacerbation of idiopathic pulmonary fibrosis SOB (shortness of breath) Productive cough NSTEMI (non-ST elevated myocardial infarction) Pulmonary hypertension Severe tricuspid regurgitation Pulmonary emphysema with fibrosis of lung Compression fracture of T7 vertebra Bronchiectasis Sepsis Hyponatremia Leukocytosis Right lower lobe pneumonia T12 vertebral fracture Atherosclerotic heart disease of [place] coronary artery with other forms of angina pectoris Ischemic cardiomyopathy Cardiomyopathy Traumatic compression fracture of T12 thoracic vertebra Allergic rhinitis COVID Pneumonia Surgical History History of abdominal surgery H/O section Family History Father Myocardial infarction Family/Other Breast cancer Social History Smoking and tobacco/nicotine status: former use of tobacco/nicotine Quit status (tobacco/nicotine): has quit using Year quit tobacco: 50-60 years ago Alcohol intake: never Substance/Drug Use: never Course Vital Signs: Vital signs: Vital Signs Temperature 98.3 F 05/17/24 17:49 Pulse Rate 113 H 05/17/24 17:49 Respiratory Rate 17 05/17/24 17:49 Blood Pressure 113/59 05/17/24 17:49 Pulse Oximetry 89 L 05/17/24 17:49 Oxygen Delivery Me thod Room Air 05/17/24 17:49 MDM - Chest Pain Medical Decision Making Differential diagnosis includes COPD exacerbation, pulmonary fibrosis, pneumonia, COVID, effusion, pulmonary edema CHF, pulmonary embolism, anemia, pneumothorax, pulmonary hypertension and multiple others 83-year-old female with a history of pulmonary fibrosis seen by the previous ER physician. We are awaiting EKG, and COVID antigen test results. She is COVID-negative. EKG shows sinus tachycardia with a rate of 100. There is occasional PVCs. No ST wave changes. [place] is normal. Intervals are normal. Time is 19: 42. She will be treated with burst of prednisone, antibiotics, inhalers. To return for worsening symptoms. Lab Data 05/17/24 17:04 05/17/24 17:04 Laboratory Results WBC 15.84 10^3/uL (3.29-11.43) H 05/17/24 17:04 RBC 4.12 10^6/uL (3.85-5.65) 05/17/24 17:04 Hgb 13.00 g/dL (11.27-16.99) 05/17/24 17:04 Hct 40.4 % (36-47) 05/17/24 17:04 MCV 98.1 fl (85-98) H 05/17/24 17:04 MCH 31.6 pg (27-33) 05/17/24 17:04 MCHC 32.2 g/dL (30-55) 05/17/24 17:04 RDW 13.4 % (12.1-15.1) 05/17/24 17:04 Plt Count 381 10^3/cmm (157-399) 05/17/24 17:04 MPV 10.1 fL (7.4-10.4) 05/17/24 17:04 Neut % (Auto) 71.5 % 05/17/24 17:04 Lymph % (Auto) 22.3 % 05/17/24 17:04 [place] % (Auto) 5.0 % 05/17/24 17:04 Eos % (Auto) 0.4 % 05/17/24 17:04 Baso % (Auto) 0.4 % 05/17/24 17:04 Neut # (Auto) 11.32 10^3/uL (1.8-7.7) H 05/17/24 17:04 Lymph # (Auto) 3.5 10^3/uL (0.8-4.8) 05/17/24 17:04 [place] # (Auto) 0.8 10^3/uL (0.2-0.9) 05/17/24 17:04 Eos # (Auto) 0.1 10^3/uL (0.0-0.8) 05/17/24 17:04 Baso # (Auto) 0.1 10^3/uL (0.0-0.1) 05/17/24 17:04 Nucleated RBC % (auto) 0 % 05/17/24 17:04 Nucleated RBCs # 0.0 /100WBC 05/17/24 17:04 Specimen Type Arterial 05/17/24 18:21 Sample Site Radial, left 05/17/24 18:21 ABG pH 7.52 (7.35-7.45) H 05/17/24 18:21 ABG pCO2 32.8 mmHg (35-45) L 05/17/24 18:21 ABG pO2 53.0 mmHg (80.0-100.0) L 05/17/24 18:21 ABG PO2/FiO2 Ratio 252 05/17/24 18:21 ABG HCO3 26.7 mmol/L (22-26) H 05/17/24 18:21 ABG Base Excess 3.9 mmol/L (-2.0-2.0) H 05/17/24 18:21 Alejo Test Pos 05/17/24 18:21 Hematocrit 34.0 % (37-47) L 05/17/24 18:21 O2 Delivery Device Room air 05/17/24 18:21 FiO2 21.0 % 05/17/24 18:21 Belt Operator ID Cak 05/17/24 18:21 Sodium 133 mmol/L (136-145) L 05/17/24 17:04 Potassium 4.1 mmol/L (3.5-5.1) 05/17/24 17:04 Chloride 91 mmol/L (98-107) L 05/17/24 17:04 Carbon Dioxide 26 mmol/L (22-29) 05/17/24 17:04 Anion Gap 20.1 (5-19) H 05/17/24 17:04 BUN 25 mg/dL (8-23) H 05/17/24 17:04 Creatinine 1.1 mg/dL (0.5-0.9) H 05/17/24 17:04 GFR Calculation Not Reportable 05/17/24 17:04 Glucose 104 mg/dL (65-115) 05/17/24 17:04 Calculated Osmolality 281 mOsm/kg (285-295) L 05/17/24 17:04 Lactic Acid 1.0 mmol/L (0.5-2.2) 05/17/24 17:04 Calcium 10.7 mg/dL (8.5-10.5) H 05/17/24 17:04 Total Bilirubin 0.5 mg/dL (0.15-1.2) 05/17/24 17:04 AST 24 U/L (0-32) 05/17/24 17:04 ALT 11 U/L (0-33) 05/17/24 17:04 Alkaline Phosphatase 111 U/L (35-105) H 05/17/24 17:04 Troponin T Baseline 13 ng/L (0-10) H 05/17/24 17:04 NT-Pro-B Natriuret Pep 2311 pg/mL (0-450) H 05/17/24 17:04 Total Protein 9.0 g/dL (6.6-8.7) H 05/17/24 17:04 Albumin 4.1 g/dL (3.5-5.2) 05/17/24 17:04 Globulin 4.9 g/dL (1.3-4.6) H 05/17/24 17:04 Procalcitonin 0.11 ng/mL (0-0.5) 05/17/24 17:04 SARS-CoV-2 Ag (Rapid) negative (Negative) 05/17/24 19:05 Discharge Plan Discharge Patient Disposition: Home Clinical Impression: Complaining of cough, Pulmonary fibrosis Condition: Stable Prescriptions: New levofloxacin 750 mg tablet 750 mg PO DAILY 7 Days Qty: 7 0RF prednisone 20 mg tablet 20 mg PO BID 5 Days Qty: 10 0RF No Action (DME) Acapella See Rx Instructions .Route .MEDSUPPLY Qty: 1 0RF Rx Instructions: As directed guaifenesin [Mucinex] 600 mg tablet extended release 12hr 600 mg PO Q12H PRN (Reason: congestion) Qty: 60 6RF prednisone 5 mg tablet 5 mg PO DAILY Hold Instructions: Resume on 04/22/23. tiotropium bromide [Spiriva with HandiHaler] 18 mcg capsule, w/inhalation device 1 cap inhalation DAILY Qty: 60 6RF Rx Instructions: puncture 1 cap using device; one dose = 2 inhalations fluticasone propionate [Flonase Allergy Relief] 50 mcg/actuation spray,suspension 2 spray intranasal DAILY PRN (Reason: Allergy Symptoms) Rx Instructions: administer into each nostril furosemide 20 mg tablet 20 mg PO DAILY Qty: 90 3RF Hold Instructions: Resume on 10/23/23. Entresto 24-26 mg tablet 0.5 tab PO BID Qty: 30 1RF Rx Instructions: Take 1/2 tab twice daily albuterol sulfate 90 mcg/actuation HFA aerosol inhaler 2 puff INHALATION Q4H PRN (Reason: Shortness Of Breath) sennosides-docusate sodium [Stool Softener-Laxative] 8.6-50 mg Tablet 1 tab PO DAILY Qty: 10 0RF tramadol 50 mg tablet 50 mg PO Q8H PRN (Reason: Pain) Qty: 20 0RF acetaminophen 500 mg Tablet 500 mg PO Q6H PRN (Reason: Pain) lorazepam 1 mg tablet 0.5 - 1 mg PO DAILY PRN (Reason: Anxiety) atorvastatin 40 mg Tablet 40 mg PO BEDTIME 30 Days Qty: 30 1RF cetirizine 10 mg tablet 10 mg PO BEDTIME PRN (Reason: allergy symptoms) aspirin 81 mg Tablet,Delayed Release (Dr/Ec) 81 mg PO DAILY@09 nitroglycerin [Nitrostat] 0.4 mg Tablet, Sublingual 0.4 mg SUBLINGUAL Q5M PRN (Reason: Chest Pain) Rx Instructions: do not exceed 3 doses per episode Discharge Orders: Discharge ED (Routine); Ordered 05/17/24 Ordered By: Michael Schneider Referrals: Eber Albarran MD [Primary Care Provider] - 1-3 days (F/u Cough. started levaquin and steroid burst) Discharge Activity: Increase activity as tolerated Patient Instructions: Pneumonia (ED), Opioid Safety, Pain Management Coding Level of Care Code ED Skip Hoist Operator for Keke Alvarez
[2024-05-17 18:32] LABS: ABG PCO2 32.8 mmHg (35-45); ABG PH Result 7.52 (7.35-7.45); Base Excess ABG 3.9 mmol/L (-2.0-2.0); Blood Gas Allen Test Pos; Blood Gas Operator Identificat CAK; Blood Gas Sample Site Radial, left; Blood Gas Sample Type Arterial; HCO3 ABG 26.7 mmol/L (22-26); Oxygen Device ROOM AIR; PO2 FiO2 Ratio Arterial Blood 252
[2024-05-17 18:39] LABS: NT Pro B Type Natriuretic Pept 2311 pg/mL (0-450); Procalcitonin 0.11 ng/mL (0-0.5)
[2024-05-17 18:50] LABS: Alanine Aminotransferase 11 U/L (0-33); Albumin Level 4.1 g/dL (3.5-5.2); Alkaline Phosphatase 111 U/L (35-105); Anion Gap 20.1 (5-19); Aspartate Amino Transferase 24 U/L (0-32); Blood Urea Nitrogen 25 mg/dL (8-23); Calcium 10.7 mg/dL (8.5-10.5); Carbon Dioxide 26 mmol/L (22-29); Chloride 91 mmol/L (98-107); Creatinine Clr Calc Pharmacy 23.5857; Globulin 4.9 g/dL (1.3-4.6); Glucose 104 mg/dL (65-115); Osmolality Calculated 281 mOsm/kg (285-295); Potassium 4.1 mmol/L (3.5-5.1); Sodium 133 mmol/L (136-145); Total Bilirubin 0.5 mg/dL (0.15-1.2)
[2024-05-17 19:00] VITALS: BP 104/74; PULSE 112; RESP 22; O2SAT 93
[2024-05-17 19:05] LABS: Troponin(5th) Baseline 13 ng/L (0-10)
[2024-05-17 19:30] VITALS: BP 113/71; PULSE 93; RESP 20; O2SAT 93
[2024-05-17 19:31] LABS: SARS Covid-2 Antigen negative (Negative)
--- NOTE | 2024-05-17 19:42 | ECG_ITS ---
[facility] Test Date: 2024-05-17 Pat Name: Karen Hernandes Department: Room: Gender: Female [employer] Head: : 1940 Requested By: Will Vaughn Order Number: [id number] Alexia MD: Juan Dugan M.D. Measurements Intervals [place] Rate: 103 P: 28 GA: 160 QRS: -26 QRSD: 82 T: 6 QT: 332 QTc: 436 Interpretive Statements SINUS TACHYCARDIA WITH OCCASIONAL VENTRICULAR PREMATURE COMPLEXES LOW QRS VOLTAGE IN PRECORDIAL LEADS [QRS DEFLECTION < 1.0 mV IN CHEST LEADS] POSSIBLE ANTERIOR MYOCARDIAL INFARCTION , PROBABLY OLD [30 ms Q WAVE IN V3/V4, OR R < 0.2 mV IN V4] Compared to ECG 02/10/2024 03:13:06 Myocardial infarct finding now present Sinus rhythm no longer present T-wave abnormality no longer present Electronically Signed On 05-17-2024 20:06:10 CDT by Juan Dugan M.D. [id number]
[2024-05-17] MEDS: FUROsemide 10 mg/mL SDV 2mL 20 MG IVP (19:55)
[2024-05-17] MEDS: methylPREDNISolone sod succ 125 mg/2 mL INJ IVP (19:55)
[2024-05-17] MEDS: levoFLOXacin 750 mg Tablet PO (19:55)
[2024-05-17 20:00] VITALS: BP 107/72; PULSE 96; RESP 19; O2SAT 92
== END 2024-05-17 20:20 | disposition home or self-care (01) ==
PROVIDERS: Emergency Medicine; Emergency Provider Emergency Medicine; PCP Family Medicine
DX: R05.9 Cough, unspecified (principal); J84.10 Pulmonary fibrosis, unspecified; Z79.82 Long term (current) use of aspirin; Z11.52 Encounter for screening for COVID-19; I25.2 Old myocardial infarction; I25.10 Atherosclerotic heart disease of native coronary artery without angina pectoris; I25.5 Ischemic cardiomyopathy; Z87.891 Personal history of nicotine dependence
CPT/HCPCS: 36415; 36600; 71046; 80053; 82803; 83605; 83880; 84145; 84484; 85025; 87040; 87426; 93005; 96374; 96375; 99285; J1940; J2919

== ENCOUNTER → 2024-06-08 15:24 | Outpatient (BNVA) | payer MEDICARE, SELFPAY | PROVIDERS: PCP Family Medicine; Visit Provider Internal Medicine Cardiovascular Disease | DX: E78.5 Hyperlipidemia, unspecified (principal); R06.02 Shortness of breath | CPT/HCPCS: 36415; 80048; 80061; 80076; 83880; 99214 ==

== ENCOUNTER 2024-06-12 10:45 | Outpatient (CLI) | payer MEDICARE, SELFPAY ==
--- NOTE | 2024-06-12 11:15 | USCV_ITS ---
Karen Hernandes Age: 84 Gender: F : 1940 Exam Date: 06/12/2024 10:59 Ordering Phys: Isabel Hardwick MD ([email or web address]) Technologist: CT [place]am [place] [facility] [place]: BP: 95 / 67 HR: Rhythm: Sinus Technical Quality: Adequate MEASUREMENTS (Male / Female) Normal Values 2D ECHO LVOT Diameter 2.0 cm LV Ejection Fraction MOD 4C 57.1 % LV Ejection Fraction MOD 2C 53.3 % LV Ejection Fraction 2C AL 54.1 % LA Diameter 3.2 cm RA Systolic Volume 4C AL 30.3 ml RA Systolic Volume 4C MOD 28.2 ml LA Sys Volume AL 22.8 cm cubed LA Sys Volume Index AL 17.4 cm cubed/m squared Aorta at Sinotubular Diameter 2.4 cm IVC Diameter 1.8 cm M-MODE LA Ao Ratio MM 1.3 AV Cusp Separation MM 1.6 cm FINDINGS Left Ventricle Normal LV size and ejection fraction of 57%.mild left ventricular hypertrophy. No regional wall motion abnormalities. Right Ventricle The right ventricle is normal in size and function. Right Atrium The right atrium is normal in size. Left Atrium The left atrium is normal in size. Mitral Valve Thickened mitral valve. Aortic Valve Thickened aortic valve. Tricuspid Valve No gross abnormalities noted Pulmonic Valve No gross abnormalities noted Pericardium Normal pericardium without effusion. Aorta Normal ascending aorta dimension. IVC Inferior vena cava not visualized. CONCLUSIONS Normal LV size and ejection fraction of 57%.mild left ventricular hypertrophy. No regional wall motion abnormalities. Thickened aortic and mitral valves. Normal cardiac chamber sizes. There is no pericardial effusion. There are no intracardiac masses. Compared to the study from 01/25/2023, there is significant improvement in the LV ejection fraction from 41% to 57% Dr Isabel Hardwick MD FAC (Electronically Signed) Final Date: 14 June 2024 19:20 S
== END 2024-06-12 10:46 | disposition home or self-care (01) ==
LOC: RAD 10:46
PROVIDERS: PCP Family Medicine; Visit Provider Internal Medicine Cardiovascular Disease
DX: I42.9 Cardiomyopathy, unspecified (principal); I08.0 Rheumatic disorders of both mitral and aortic valves
CPT/HCPCS: 93308

== ENCOUNTER 2024-09-11 12:46 | Inpatient (IN) | payer MEDICARE, SELFPAY ==
[2024-09-11] VITALS (59 sets, daily range): BP systolic 61–133; BP diastolic 33–73; PULSE 73–123; RESP 2–40; TEMP 36.6–37.1; O2SAT 89–100; BMI 14.6
--- NOTE | 2024-09-11 12:52 | XR_ITS ---
WS: [email or web address] Exam: XR chest 1V portable [id number] Date/Time of Exam: 09/11/2024 12:52 PM Reason For Exam: Shortness of breath Comparison 05/17/2024. Extensive fibrosis and honeycombing noted involving both lungs. Chronic pneumonic consolidation in th e basal and lateral RIGHT pleural cavity. Increasing soft tissue masslike density at the RIGHT hilum. Underlying mass not excluded. No pneumothorax. Heart size is within normal limits. The chest is rota miriam. Bony structures are intact. T12 vertebroplasty. XR/XR chest 1V portable [id number] IMPRESSION: 1. Advanced chronic changes of fibrosis and honeycombing. Chronic consolidated areas in the basal and lateral aspects of the RIGHT pleural cavity. 2. Increasing masslike density at the RIGHT hilum since the prior study. A deve loping RIGHT hilar mass is not excluded.
--- NOTE | 2024-09-11 13:10 | ECG_ITS ---
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 Measurements Intervals [place] Rate: 118 P: 26 AL: 165 QRS: -46 QRSD: 91 T: 30 QT: 434 QTc: 610 Interpretive Statements SINUS TACHYCARDIA WITH FREQUENT VENTRICULAR PREMATURE COMPLEXES WITH OCCASIONAL SUPRAVENTRICULAR PREMATURE COMPLEXES ANTERIOR MYOCARDIAL INFARCTION , OF INDETERMINATE AGE [40+ ms Q WAVE AND/OR ST/T ABNORMALITY IN V3/V4] INFERIOR MYOCARDIAL INFARCTION , PROBABLY OLD [40+ ms Q WAVE AND/OR ST/T ABNORMALITY IN II/aVF] Compared to ECG 05/17/2024 19:42:37 No significant changes Electronically Signed On 09-11-2024 21:56:49 MAINTENANCE ENGINEER by Juan Dugan M.D. [email or web address]
[2024-09-11 13:12] LABS: ABG PCO2 31.8 mmHg (35-45); ABG PH Result 7.47 (7.35-7.45); Alveolar-Arterial Oxygen Gradi 14.9 mmHg (5-10); Arterial Blood Gas Hematocrit 34.7 % (37-47); Base Excess ABG -0.1 mmol/L (-2.0-2.0); Blood Gas Operator Identificat AMH; Blood Gas Sample Site Brachial, left; Blood Gas Sample Type Arterial; Carboxyhemoglobin 1.3 %THgb (0.4-20.1); HCO3 ABG 23.1 mmol/L (22-26); HGB O2 Sat 95.2 % (95-100); Ionized Calcium Level - ABG 1.3 mmol/L (1.1-1.4); Methemoglobin 0.1 % (0.4-1.5); Oxygen Device NC; Oxygen Saturation ABG 96.6; PO2 ABG 75.4 mmHg (80.0-100.0); PO2 FiO2 Ratio Arterial Blood 235; Potassium Level - ABG 3.5 mmol/L (3.5-5.0); Total Hemoglobin 11.3 g/dL (12-16)
--- NOTE | 2024-09-11 13:13 | ED_ITS ---
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 She has had worsening cough. EMS reports that when they arrived they had placed her on 3 L nasal cannula. Her blood pressure is a bit low on presentation, however looking back her blood pressures usually run between 85 and 105 systolic. She is a bit tachycardic as well in the 120s. She is afebrile. No focal motor deficits. Alert and oriented. O2 sats are in the low 90s on 3 L nasal cannula at this time. Related Data Home Medications Medication Instructions Recorded Confirmed lorazepam 1 mg tablet 0.5 - 1 mg PO DAILY PRN Anxiety 01/22/23 09/11/24 nitroglycerin 0.4 mg sublingual 0.4 mg sublingual Q5M PRN Chest 04/05/23 09/11/24 tablet (Nitrostat) Pain prednisone 10 mg tablet 10 mg PO DAILY 09/11/24 09/11/24 Previous Rx's Medication Instructions Recorded Acapella #1 ea 06/10/23 tiotropium bromide 18 mcg capsule 1 cap inhalation DAILY #60 06/10/23 with inhalation device (Spiriva inhalations with HandiHaler) sennosides 8.6 mg-docusate sodium 1 tab PO DAILY #10 tabs 10/09/23 50 mg tablet (Stool Softener-Laxative) tramadol 50 mg tablet 50 mg PO Q8H PRN Pain #20 tabs 10/09/23 sacubitril 24 mg-valsartan 26 mg 0.5 tab PO BID #30 tabs 05/25/24 tablet (Entresto) atorvastatin 40 mg tablet 40 mg PO BEDTIME 30 days #30 tabs 06/08/24 clopidogrel 75 mg tablet (Plavix) 75 mg PO DAILY 30 days #30 tabs 06/08/24 furosemide 20 mg tablet 20 mg PO DAILY #90 tabs 09/09/24 Allergies Allergy/AdvReac Type Severity Reaction Status Date / Time meperidine [From Demerol] Allergy ADR-Halluci Verified 06/08/24 14:13 nating Review of Systems 2 Narrative: Constitutional symptoms: Negative except as documented in HPI. Skin symptoms: Negative except as documented in HPI. Eye symptoms: Negative except as documented in HPI. ENMT symptoms: Negative except as documented in HPI. Respiratory symptoms: Negative except as documented in HPI. Cardiovascular symptoms: Negative except as documented in HPI. Gastrointestinal symptoms: Negative except as documented in HPI. Genitourinary symptoms: Negative except as documented in HPI. Musculoskeletal symptoms: Negative except as documented in HPI. Neurologic symptoms: Negative except as documented in HPI. Psychiatric symptoms: Negative except as documented in HPI. Endocrine symptoms: Negative except as documented in HPI. PFSH ED 2 PFSH: Medical History Pulmonary hypertension Severe tricuspid regurgitation Acute exacerbation of idiopathic pulmonary fibrosis SOB (shortness of breath) Productive cough NSTEMI (non-ST elevated myocardial infarction) Pulmonary emphysema with fibrosis of lung Compression fracture of T7 vertebra Bronchiectasis Sepsis Hyponatremia Leukocytosis Right lower lobe pneumonia T12 vertebral fracture Atherosclerotic heart disease of [place] coronary artery with other forms of angina pectoris Ischemic cardiomyopathy Cardiomyopathy Traumatic compression fracture of T12 thoracic vertebra Allergic rhinitis COVID Pneumonia Surgical History History of abdominal surgery H/O section Family History Father Myocardial infarction Family/Other Breast cancer Social History Smoking and tobacco/nicotine status: former use of tobacco/nicotine Quit status (tobacco/nicotine): has quit using Year quit tobacco: 50-60 years ago Alcohol intake: never Substance/Drug Use: never Physical Exam 2 Narrative: EXAM NARRATIVE: General: Alert, no acute distress. Skin: Warm, dry. Head: Normocephalic, atraumatic. Neck: Supple, trachea midline. Eye: Extraocular movements are intact. Ears, nose, mouth and throat: Oral mucosa moist. Cardiovascular: Regular rate and rhythm, Normal peripheral perfusion. Respiratory: coarse, scattered wheeze, mild increased wob. tachypnea, breath sounds are equal, Symmetrical chest wall expansion. Gastrointestinal: Soft, Nontender, Non distended, Normal bowel sounds. Musculoskeletal: Normal ROM, no deformity. Neurological: Alert and oriented to person, place, time, and situation, No focal neurological deficit observed. Psychiatric: Cooperative, appropriate mood & affect. Course 2 Vital Signs: Vital signs: Vital Signs Temperature 98.8 F 09/11/24 12:50 Pulse Rate 87 09/11/24 16:56 Respiratory Rate 16 09/11/24 16:56 Blood Pressure 74/34 09/11/24 16:56 Pulse Oximetry 96 09/11/24 16:56 Oxygen Delivery Me thod Nasal Cannula 09/11/24 16:56 Oxygen Flow Rate 2.5 09/11/24 16:56 MDM - SOB/Dyspnea Medical Decision Making Differential diagnosis for patient with shortness of breath includes but is not limited to and based on the above HPI, review of systems and physical exam: Pneumonia. Bronchitis. Asthma or COPD with acute exacerbation. Acute coronary syndrome / MO. Pulmonary embolism. Anxiety. Congestive heart failure. Viral infections including influenza and Covid-19. Atrial fibrillation. Anxiety. Pleural effusion. Pneumothorax. Orders placed to evaluate differential diagnosis based on the above differential, HPI and physical exam AB.4 with an O2 sat of 96% on 3 L nasal cannula. EKG: Time 1310. Rate 118. Sinus tachycardia, diffuse nonspecific ST-T changes, PVCs, normal NV & QRS intervals, This was reviewed and interpreted by myself the ER physician at 1314. Repeat EKG: Time 1531. Rate 104. Sinus tachycardia, nonspecific ST-T changes, normal NV & QRS intervals, This was reviewed and interpreted by myself the ER physician at 1535. Rate has decreased somewhat. Still some PVCs. Chest x-ray: Chronic right sided infiltrate. Breath little bit worse than previous. This was reviewed and interpreted by myself the emergency room physician. I also reviewed the radiology report. Lab Review: Laboratory results were reviewed and interpreted by myself the emergency room physician. Leukocytosis with white count of 27,000. She is always slightly leukocytotic but this is quite a bit more. BUN and creatinine are slightly elevated over baseline at 29 and 0.9. Initial troponin was 135. Repeat is 173. Delta is 38. CRP is quite elevated at 141. proBNP is elevated over her baseline at 3900. CT of the chest without contrast: Severe chronic interstitial fibrosis with superimposed acute right basilar pneumonia. There is an acute worsening of the right basilar consolidation. This was reviewed and interpreted by myself the emergency room physician. I also reviewed the radiology report. I reviewed the patient's medical record. Reexamination: Patient is stable on 3 to 4 L nasal cannula. With O2 sats in the low 90s. She has no altered mental status. No focal motor deficits. She is asymptomatic with her hypotension. Consultation: I spoke with Dr. Chamorro who is on-call for the hospitalist service who agrees to admission to the ICU. She recommends initiating Levophed. Assessment and plan: Pneumonia Sepsis Pulmonary fibrosis Acute on chronic hypoxemic respiratory failure COPD with acute exacerbation Elevated troponin Hypotension -1.5 L normal saline bolus. Which is actually about 400 cc over a 30/kg bolus. -Levophed being initiated -Broad-spectrum antibiotics were administered. Meropenem and Zyvox -Sepsis quality measures. -Lactic acid with a reflex was ordered. -Blood cultures were ordered. ?Patient now requiring about 2 to 3 L nasal cannula which is close to her baseline. ?IV Solu-Medrol and breathing treatments were given. ?Troponin is slightly elevated. Ector is likely due to strain from hypoxemia, I will defer anticoagulation decision to the hospitalist service. -I discussed the patient with the hospitalist on-call who is admitting the patient. - Discussed findings and plan with patient. Answered any questions. - All laboratory values were reviewed and interpreted personally by myself, the ER physician - All imaging was reviewed and interpreted personally by myself, the ER physician. - Evaluation and treatment of this problem were appropriate in the emergency setting Critical care -I spent a total of >35 minutes of critical care time managing the patient, independent of any other practitioner. -The time involved in the performance of separately reportable procedures was not counted towards critical care time. Lab Data 09/11/24 13:21 09/11/24 13:21 Labs/Radiology: Radiology Impressions Chest X-Ray 09/11/24 12:52 IMPRESSION: 1. Advanced chronic changes of fibrosis and honeycombing. Chronic consolidated areas in the basal and lateral aspects of the RIGHT pleural cavity. 2. Increasing masslike density at the RIGHT hilum since the prior study. A developing RIGHT hilar mass is not excluded. Chest CT 09/11/24 14:10 IMPRESSION: Severe chronic interstitial fibrosis with superimposed acute right basilar pneumonia ADDENDUM: 09/11/24 1516 There has been worsening of right basilar consolidation since 06/25/2023. Laboratory Results WBC 27.46 10^3/uL (3.29-11.43) H 09/11/24 13:21 RBC 3.52 10^6/uL (3.85-5.65) L 09/11/24 13:21 Hgb 11.20 g/dL (11.27-16.99) L 09/11/24 13:21 Hct 34.4 % (36-47) L 09/11/24 13:21 MCV 97.7 fl (85-98) 09/11/24 13:21 MCH 31.8 pg (27-33) 09/11/24 13:21 MCHC 32.6 g/dL (30-55) 09/11/24 13:21 RDW 14.7 % (12.1-15.1) 09/11/24 13:21 Plt Count 373 10^3/cmm (157-399) 09/11/24 13:21 MPV 9.2 fL (7.4-10.4) 09/11/24 13:21 Neut % (Auto) 87.2 % 09/11/24 13:21 Lymph % (Auto) 6.6 % 09/11/24 13:21 [place] % (Auto) 5.1 % 09/11/24 13:21 Eos % (Auto) 0.0 % 09/11/24 13:21 Baso % (Auto) 0.3 % 09/11/24 13:21 Neut # (Auto) 23.91 10^3/uL (1.8-7.7) H 09/11/24 13:21 Lymph # (Auto) 1.8 10^3/uL (0.8-4.8) 09/11/24 13:21 [place] # (Auto) 1.4 10^3/uL (0.2-0.9) H 09/11/24 13:21 Eos # (Auto) 0.0 10^3/uL (0.0-0.8) 09/11/24 13:21 Baso # (Auto) 0.1 10^3/uL (0.0-0.1) 09/11/24 13:21 Nucleated RBC % (auto) 0 % 09/11/24 13:21 Nucleated RBCs # 0.0 /100WBC 09/11/24 13:21 D-Dimer 4.94 ug/mLFEU (0-0.59) H 09/11/24 13:21 Specimen Type Arterial 09/11/24 13:00 Sample Site Brachial, left 09/11/24 13:00 ABG pH 7.47 (7.35-7.45) H 09/11/24 13:00 ABG pCO2 31.8 mmHg (35-45) L 09/11/24 13:00 ABG pO2 75.4 mmHg (80.0-100.0) L 09/11/24 13:00 ABG PO2/FiO2 Ratio 235 09/11/24 13:00 ABG HCO3 23.1 mmol/L (22-26) 09/11/24 13:00 ABG O2 Saturation 96.6 09/11/24 13:00 ABG Base Excess -0.1 mmol/L (-2.0-2.0) 09/11/24 13:00 Alejo Test N/a 09/11/24 13:00 A-a O2 Gradient 14.9 mmHg (5-10) H 09/11/24 13:00 Hematocrit 34.7 % (37-47) L 09/11/24 13:00 Hgb O2 Saturation 95.2 % (95-100) 09/11/24 13:00 Carboxyhemoglobin 1.3 %THgb (0.4-20.1) 09/11/24 13:00 Methemoglobin 0.1 % (0.4-1.5) L 09/11/24 13:00 Total Hemoglobin 11.3 g/dL (12-16) L 09/11/24 13:00 Sodium 135.0 mmol/L (131-143) 09/11/24 13:00 Potassium 3.5 mmol/L (3.5-5.0) 09/11/24 13:00 Glucose 111.0 mg/dL (70-115) 09/11/24 13:00 Ionized Calcium 1.3 mmol/L (1.1-1.4) 09/11/24 13:00 O2 Delivery Device Nc 09/11/24 13:00 O2 Liters/Min 3.0 % 09/11/24 13:00 FiO2 32.0 % 09/11/24 13:00 Advanced Seal Delivery System ID Amh 09/11/24 13:00 Sodium 135 mmol/L (136-145) L 09/11/24 13:21 Potassium 3.9 mmol/L (3.5-5.1) 09/11/24 13:21 Chloride 100 mmol/L (98-107) 09/11/24 13:21 Carbon Dioxide 22 mmol/L (22-29) 09/11/24 13:21 Anion Gap 16.9 (5-19) 09/11/24 13:21 BUN 29 mg/dL (8-23) H 09/11/24 13:21 Creatinine 0.9 mg/dL (0.5-0.9) 09/11/24 13:21 GFR Calculation Not Reportable 09/11/24 13:21 Glucose 115 mg/dL (65-115) 09/11/24 13:21 Calculated Osmolality 287 mOsm/kg (285-295) 09/11/24 13:21 Lactic Acid 1.7 mmol/L (0.5-2.2) 09/11/24 13:21 Calcium 9.8 mg/dL (8.5-10.5) 09/11/24 13:21 Total Bilirubin 0.6 mg/dL (0.15-1.2) 09/11/24 13:21 AST 32 U/L (0-32) 09/11/24 13:21 ALT 16 U/L (0-33) 09/11/24 13:21 Alkaline Phosphatase 71 U/L (35-105) 09/11/24 13:21 Troponin T Baseline 135 ng/L (0-10) H* 09/11/24 13:21 Troponin T 120 Minute 173.4 ng/L (0-10) H 09/11/24 16:00 Delta Troponin T 38.4 ABS# (0-10) H* 09/11/24 16:00 C-Reactive Protein 141.0 mg/L (0.0-4.9) H 09/11/24 13:21 NT-Pro-B Natriuret Pep 3929 pg/mL (0-450) H 09/11/24 13:21 Total Protein 6.8 g/dL (6.6-8.7) 09/11/24 13:21 Albumin 3.5 g/dL (3.5-5.2) 09/11/24 13:21 Globulin 3.3 g/dL (1.3-4.6) 09/11/24 13:21 Coronavirus (PCR) Negative (Negative) 09/11/24 13:09 Influenza A (PCR) Negative (Negative) 09/11/24 13:09 Influenza Type B (PCR) Negative (Negative) 09/11/24 13:09 RSV (PCR) Negative (Negative) 09/11/24 13:09 All radiology interpretation(s) finalized by discharge Discharge Plan Discharge Patient Disposition: Admitted As Inpatient Admit Provider: Rachelle Chamorro Clinical Impression: Pneumonia, Sepsis, Pulmonary fibrosis, COPD with acute exacerbation, Acute on chronic hypoxic respiratory failure, Elevated troponin, Hypotension Condition: Stable Coding Level of Care Code ED Freight Brakeman for Keke Alvarez
[2024-09-11] MEDS: sodium chloride 0.9% 1,000 ML 999 ML IV (13:25)
[2024-09-11 13:29] LABS: Basophils # 0.1 10^3/uL (0.0-0.1); Basophils % 0.3 %; Hematocrit 34.4 % (36-47); Lymphocytes # 1.8 10^3/uL (0.8-4.8); Lymphocytes % 6.6 %; Mean Corpuscular HGB Conc 32.6 g/dL (30-55); Mean Corpuscular Hemoglobin 31.8 pg (27-33); Mean Corpuscular Volume 97.7 fl (85-98); Mean Platelet Volume 9.2 fL (7.4-10.4); Monocytes # 1.4 10^3/uL (0.2-0.9); Monocytes % 5.1 %; Neutrophils # 23.91 10^3/uL (1.8-7.7); Neutrophils % 87.2 %; Nucleated Red Blood Cells % 0 %; Platelet Count 373 10^3/cmm (157-399); Red Blood Count 3.52 10^6/uL (3.85-5.65); Red Cell Distribution Width 14.7 % (12.1-15.1); White Blood Count 27.46 10^3/uL (3.29-11.43)
[2024-09-11 13:53] LABS: Covid PCR NEGATIVE (Negative); Influenza A NEGATIVE (Negative); Influenza B NEGATIVE (Negative); Respiratory Syncytial Virus Ce NEGATIVE (Negative)
[2024-09-11 13:54] LABS: Lactic Sepsis W/Reflex 1.7 mmol/L (0.5-2.2)
[2024-09-11] MEDS: meropenem 500 mg SDV IVP (13:55)
[2024-09-11] MEDS: linezolid premix 600 MG/300 ML PREMIX 300 MG IV (13:56)
[2024-09-11 14:01] LABS: Troponin(5th) Baseline 135 ng/L (0-10)
[2024-09-11 14:04] LABS: Alanine Aminotransferase 16 U/L (0-33); Albumin Level 3.5 g/dL (3.5-5.2); Alkaline Phosphatase 71 U/L (35-105); Anion Gap 16.9 (5-19); Aspartate Amino Transferase 32 U/L (0-32); Blood Urea Nitrogen 29 mg/dL (8-23); Calcium 9.8 mg/dL (8.5-10.5); Carbon Dioxide 22 mmol/L (22-29); Chloride 100 mmol/L (98-107); Creatinine Clr Calc Pharmacy 26.6553; Globulin 3.3 g/dL (1.3-4.6); Glucose 115 mg/dL (65-115); NT Pro B Type Natriuretic Pept 3929 pg/mL (0-450); Osmolality Calculated 287 mOsm/kg (285-295); Potassium 3.9 mmol/L (3.5-5.1); Sodium 135 mmol/L (136-145); Total Bilirubin 0.6 mg/dL (0.15-1.2); Total Protein 6.8 g/dL (6.6-8.7)
--- NOTE | 2024-09-11 14:10 | CTR_ITS ---
PROCEDURE INFORMATION: Exam: CT Chest Without Contrast; Diagnostic Exam date and time: 09/11/2024 2:49 PM Age: 84 years old Clinical indication: Abnormal findings; Abnormal radiologic exam of lung or chest; Additional info: Abnormal chest xray TECHNIQUE: Imaging protocol: Diagnostic computed tomography of the chest without contrast. Radiation optimization: All CT scans at this facility use at least one of these dose optimization techniques: automated exposure control; mA and/or kV adjustment per patient size (includes targeted exams where dose is matched to clinical indication); or iterative reconstruction. COMPARISON: CT chest wo con [id number] 06/25/2023 1:42 PM RADIATION DOSE METRICS: Total DLP (mGy-cm): 193.47 FINDINGS: Lungs: Both lungs demonstrate diffuse interstitial fibrosis that is more pronounced in the lung bases and the periphery of both lungs. Multiple areas of honeycombing are noted. In addition, there is cavitary consolidation involving the right lower lung field. There is diffuse traction bronchiectasis bilaterally. Diffuse centrilobular emphysematous changes are also noted. Pleural spaces: Unremarkable. No pneumothorax. No pleural effusion. Heart: Unremarkable. No cardiomegaly. No pericardial effusion. Coronary arteries: Coronary artery calcifications are noted. Lymph nodes: Unremarkable. No enlarged lymph nodes. Vasculature: Unremarkable. No aortic aneurysm. Diaphragm: There is chronic elevation of the right hemidiaphragm. Bones/joints: Old compression fractures are noted at 2 levels in the thoracic spine. One of these has undergone kyphoplasty. No acute fracture. Soft tissues: Unremarkable. CT/CT chest con [id number] IMPRESSION: Severe chronic interstitial fibrosis with superimposed acute right basilar pneumonia
[2024-09-11] MEDS: albuterol 2.5 mg/3 mL Neb INHALATION (14:57)
[2024-09-11] MEDS: methylPREDNISolone sod succ 125 mg/2 mL INJ IVP (15:19)
--- NOTE | 2024-09-11 15:31 | ECG_ITS ---
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 Measurements Intervals [place] Rate: 104 P: 43 ID: [id number] QRS: -19 QRSD: 97 T: -34 QT: 371 QTc: 489 Interpretive Statements SINUS TACHYCARDIA WITH FREQUENT VENTRICULAR PREMATURE COMPLEXES WITH OCCASIONAL SUPRAVENTRICULAR PREMATURE COMPLEXES LOW QRS VOLTAGE IN EXTREMITY LEADS [QRS DEFLECTION < 0.5 mV IN LIMB LEADS] POSSIBLE ANTERIOR MYOCARDIAL INFARCTION , OF INDETERMINATE AGE [30 ms Q WAVE IN V3/V4, OR R < 0.2 mV IN V4] Compared to ECG 09/11/2024 13:10:59 Low QRS voltage now present Myocardial infarct finding still present Electronically Signed On 09-11-2024 22:06:54 MORTGAGE ANALYST by Juan Dugan M.D. [email or web address]
[2024-09-11] MEDS: sodium chloride 0.9% 500 ML 999 ML IV (15:33)
[2024-09-11 16:46] LABS: Troponin 5 2HR 173.4 ng/L (0-10); Troponin 5 2HR Delta 38.4 ABS# (0-10)
--- NOTE | 2024-09-11 16:49 | P.HP_ITS ---
Providers/Chief Complaint 2 Primary Care Provider: Eber Albarran MD Chief Complaint: sob History of Present Illness Karen Hernandes is a 84 year old female With history of pulmonary fibrosis, uses 2 to 3 L of oxygen on as-needed basis at home, daughter check on her Every day frequently, patient is stating that she has lived a very youthful life she rode a bike, did scuba diving she was very active for her age and now she is debilitated weak and lethargic and fatigued. Minimal physical activity would make her short of breath that is what is causing sedentary lifestyle, poor appetite and loss of weight. Recently she has not noticed any chest pain nausea vomiting diarrhea fever but endorsing constipation. She was using a walker which she has not been able to use recently because of worsening of fatigue and weakness. Workup in the ER revealed pneumonia, pulmonary fibrosis I requested D-dimer which came back high requested CTA chest I do not see any swelling on her legs clinically, currently she is on 2 L nasal cannula without any distress. Hemodynamically stable. She has received broad-spectrum antibiotics along stress dose steroids in the ER. She does take prednisone 10 mg on daily basis, she does have chronic leukocytosis with acute worsening Review of Systems 2 Const: Reports: chills, body aches, change in weight and fatigue; Denies: fever(s) Eyes: Denies: change in vision ENMT: Denies: throat pain Card: Denies: chest pain Resp: Reports: dyspnea GI: Reports: constipation; Denies: abdominal pain Musc: Reports: muscle weakness and decrease in muscle mass Medications/Allergies Home Medications Medication Instructions Recorded Confirmed Last Taken Type lorazepam 1 mg tablet 0.5 - 1 mg PO DAILY PRN Anxiety 01/22/23 09/11/24 Unknown History nitroglycerin 0.4 mg sublingual 0.4 mg sublingual Q5M PRN Chest 04/05/23 09/11/24 Unknown History tablet (Nitrostat) Pain Acapella #1 ea 06/10/23 09/11/24 Unknown Rx tiotropium bromide 18 mcg capsule 1 cap inhalation DAILY #60 06/10/23 09/11/24 10/07/23 Rx with inhalation device (Spiriva inhalations with HandiHaler) sennosides 8.6 mg-docusate sodium 1 tab PO DAILY #10 tabs 10/09/23 09/11/24 Unknown Rx 50 mg tablet (Stool Softener-Laxative) tramadol 50 mg tablet 50 mg PO Q8H PRN Pain #20 tabs 10/09/23 09/11/24 09/11/24 Rx sacubitril 24 mg-valsartan 26 mg 0.5 tab PO BID #30 tabs 05/25/24 09/11/24 09/11/24 Rx tablet (Entresto) atorvastatin 40 mg tablet 40 mg PO BEDTIME 30 days #30 tabs 06/08/24 09/11/24 09/11/24 Rx clopidogrel 75 mg tablet (Plavix) 75 mg PO DAILY 30 days #30 tabs 06/08/24 09/11/24 09/11/24 Rx furosemide 20 mg tablet 20 mg PO DAILY #90 tabs 09/09/24 09/11/24 09/11/24 Rx prednisone 10 mg tablet 10 mg PO DAILY 09/11/24 09/11/24 09/11/24 History Allergies Allergy/AdvReac Type Severity Reaction Status Date / Time meperidine [From Demerol] Allergy ADR-Halluci Verified 06/08/24 14:13 nating PFSH Acute 2 PFSH: Medical History Pulmonary hypertension Severe tricuspid regurgitation Acute exacerbation of idiopathic pulmonary fibrosis SOB (shortness of breath) Productive cough NSTEMI (non-ST elevated myocardial infarction) Pulmonary emphysema with fibrosis of lung Compression fracture of T7 vertebra Bronchiectasis Sepsis Hyponatremia Leukocytosis Right lower lobe pneumonia T12 vertebral fracture Atherosclerotic heart disease of [place] coronary artery with other forms of angina pectoris Ischemic cardiomyopathy Cardiomyopathy Traumatic compression fracture of T12 thoracic vertebra Allergic rhinitis COVID Pneumonia Surgical History History of abdominal surgery H/O section Family History Father Myocardial infarction Family/Other Breast cancer Social History Smoking and tobacco/nicotine status: former use of tobacco/nicotine Quit status (tobacco/nicotine): has quit using Year quit tobacco: 50-60 years ago Alcohol intake: never Substance/Drug Use: never Vitals/I&O/Wt Last Vital Signs Temp 98.8 F 09/11/24 12:50 Pulse 94 09/11/24 16:30 Resp 31 H 09/11/24 16:00 BP 74/34 09/11/24 16:30 Pulse Ox 99 09/11/24 16:30 O2 Del Method Nasal Cannula 09/11/24 14:57 O2 Flow Rate 3 09/11/24 14:57 Weight last 48 hrs Weight 36.287 kg Physical Exam 2 Narrative: Frail female Currently on 3 L No active distress Pleasant and cooperative I do not see any swelling of lower extremity Abdomen soft S1, S2 variable Pleasant and cooperative Daughters at the bedside Currently blood pressure 106/60 mm per mercury Afebrile No send meningitis Nonfocal neuroexam Data 09/11/24 13:21 09/11/24 13:21 Micro: Microbiology 09/11/24 13:23 Blood Culture - Preliminary Blood SPECIMEN COLLECTED 09/11/24 13:21 Blood Culture - Preliminary Blood SPECIMEN COLLECTED A&P Assessment and plan (1) Hypotension: (2) Pulmonary hypertension: (3) Severe tricuspid regurgitation: (4) Elevated troponin: (5) D-dimer, elevated: (6) Pulmonary fibrosis: (7) Pneumonia: (8) COPD with acute exacerbation: (9) DNR (do not resuscitate): (10) Sepsis with acute hypoxic respiratory failure: Plan Sepsis related to right lower lobe pneumonia Septic shock 6 mics of Levophed which we are weaning down slowly Gentle fluid hydration which I will discontinue after 12 hours High D-dimer Request CTA chest Patient received septic bolus in the ER, will request lactic acid, blood cultures taken, I will keep her on broad-spectrum antibiotics Acute on chronic hypoxia: Currently on 3 L, at home uses 2 L at baseline on as- needed basis 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 with improved EF Currently does not look fluid overloaded Received septic bolus in the ER Received stress dose steroid 1 dose in the ER currently on 6 of Levophed Her echo was done recently I would not repeat at this point Abnormal D-dimer with elevated troponin, rule out PE requested CTA chest Considering low BMI and low creatinine clearance I have consulted pharmacy they recommended 40 mg once daily regimen for therapeutic Lovenox regimen at this point Patient is not endorsing any chest pain, EKG showing sinus tachycardia with PVCs Goals of care discussed with the patient in front of her daughters, she is DNR/DNI We will keep her on GI soft diet Patient was using a walker now bedbound secondary to worsening of fatigue lethargy and hypoxia DNR/DNI Attestations 2 Medical Necessity Statement*: More than 2 midnights anticipated for management of pneumonia and sepsis with septic shock Diagnoses Hypotension I95.9 Pulmonary hypertension I27.20 Severe tricuspid regurgitation I07.1 Elevated troponin R79.89 D-dimer, elevated R79.89 Pulmonary fibrosis J84.10 Pneumonia J18.9 COPD with acute exacerbation J44.1 DNR (do not resuscitate) Z66 Sepsis with acute hypoxic respiratory failure A41.9; R65.20; J96.01
[2024-09-11 17:27] LABS: D Dimer 4.94 ug/mLFEU (0-0.59)
[2024-09-11] MEDS: norepinephrine 4 MG/250 ML BAG 30 MG IV (17:49)
--- NOTE | 2024-09-11 18:53 | ECG_ITS ---
[employer] Test Date: 2024-09-11 Pat Name: Karen Hernandes Department: Room: ICU04 Gender: Female Net Fisher: : 1940 Requested By: Mini Mendez Order Number: [id number] Alexia MD: Juan Dugan M.D. Measurements Intervals [place] Rate: 83 P: 50 MD: 187 QRS: -41 QRSD: 85 T: -44 QT: 398 QTc: 469 Interpretive Statements SINUS RHYTHM WITH FREQUENT VENTRICULAR PREMATURE COMPLEXES POSSIBLE LEFT ATRIAL ENLARGEMENT [-0.1mV P-WAVE IN V1/V2] LOW QRS VOLTAGE IN EXTREMITY LEADS [QRS DEFLECTION < 0.5 mV IN LIMB LEADS] INFERIOR MYOCARDIAL INFARCTION , OF INDETERMINATE AGE [40+ ms Q WAVE AND/OR ST/T ABNORMALITY IN II/aVF] MODERATE T-WAVE ABNORMALITY, CONSIDER ANTEROLATERAL ISCHEMIA [-0.1+ mV T-WAVE IN V3-V6] Compared to ECG 09/11/2024 15:31:41 T-wave abnormality now present Possible ischemia now present Sinus tachycardia no longer present Myocardial infarct finding still present Electronically Signed On 09-11-2024 22:05:23 [employer] by Juan Dugan M.D. [id number]
--- NOTE | 2024-09-11 19:22 | CTR_ITS ---
PROCEDURE INFORMATION: Exam: CTA Chest With Contrast Exam date and time: 09/11/2024 7:53 PM Age: 84 years old Clinical indication: Abnormal findings; Abnormal diagnostic tests; Elevated d-dimer; Shortness of breath; Prior surgery; Surgery date: 6+ months; Surgery type: Partial pneumenectomy. Kyphoplasty. Patient HX: SOB with hypoxia and elevated dimer. TECHNIQUE: Imaging protocol: Computed tomographic angiography of the chest with contrast. Exam focused on the arteries. 3D rendering (Not supervised by radiologist): MIP and/or 3D reconstructed images were created by the technologist. Radiation optimization: All CT scans at this facility use at least one of these dose optimization techniques: automated exposure control; mA and/or kV adjustment per patient size (includes targeted exams where dose is matched to clinical indication); or iterative reconstruction. Contrast material: OMNI 350; Contrast volume: 60 ml; Contrast route: INTRAVENOUS (IV); COMPARISON: CT angio chest PE protcl [id number] 01/24/2023 3:30 PM RADIATION DOSE METRICS: Total DLP (mGy-cm): 162 FINDINGS: Pulmonary arteries: Normal. No pulmonary emboli. Aorta: Aortic atherosclerotic calcifications. Lungs: Emphysematous changes. Bilateral lower lobe xmhht-nirwqqf-ymns-left airspace infiltrates. Bilateral honeycombing and interstitial fibrotic changes. Pleural spaces: Trace right pleural effusion. Heart: Cardiomegaly. Lymph nodes: Scattered prominent mediastinal lymph nodes measuring up to 11 mm short axis. Bones/joints: T7 vertebral body chronic compression fracture with mild retropulsion of bony fragments and minimal spinal canal narrowing. T12 vertebroplasty changes. Soft tissues: Unremarkable. CT/CT angio chest PE protcl [id number] IMPRESSION: 1. Negative for pulmonary embolus. 2. Cardiomegaly. 3. Emphysematous changes. 4. Bilateral lower lobe pajsi-ywgimoa-rulm-left airspace infiltrates. 5. Bilateral honeycombing and interstitial fibrotic changes. 6. T7 vertebral body chronic compression fracture with mild retropulsion of bony fragments and minimal spinal canal narrowing. 7. T12 vertebroplasty changes. 8. Scattered prominent mediastinal lymph nodes measuring up to 11 mm short axis. 9. Trace right pleural effusion. 10. Aortic atherosclerotic calcifications.
[2024-09-11] MEDS: VANCOMYCIN ADD-Vantage 1,000 MG in 0.9% NaCl ADD-Vantage 250 ML 250 MG IV (19:25)
[2024-09-11 19:26] LABS: Troponin 5 6HR 197.8 ng/L (0-10); Troponin 5 6HR Delta 62.8 ng/L (0-12)
[2024-09-11] MEDS: pantoprazole 40 mg SDV IVP (19:31)
[2024-09-11] MEDS: hydrocortisone 100 mg/2 mL SDV IVP (19:36)
[2024-09-11] MEDS: enoxaparin 40 mg/0.4 mL Syringe SUBCUT (19:37)
[2024-09-11] MEDS: iohexol 350 mg/mL 500 mL Btl (per mL) IV (19:51)
[2024-09-11] MEDS: sodium chloride 0.9% 1,000 ML 50 ML IV (20:10)
[2024-09-11] MEDS: piperacillin-tazobactam 3.375 GM in sodium chloride 0.9% (plus) 50 ML IV (20:14)
[2024-09-11] MEDS: atorvastatin 40 mg Tablet PO (20:36)
--- NOTE | 2024-09-11 20:46 | PHA.VACGOAL ---
Vancomycin Goal - Goal Vancomycin Goal:: 15-20 mg/L Vancomycin Indication:: Pneumonia (SEPSIS) - Therapy Current therapy:: Pip/Tazo Day of therpy:: Day [1]of [] . Actual body weight (kg): 36.287 kg - Data Labs: WBC 27.46 10^3/uL (3.29-11.43) H 09/11/24 13:21 RBC 3.52 10^6/uL (3.85-5.65) L 09/11/24 13:21 Hgb 11.20 g/dL (11.27-16.99) L 09/11/24 13:21 Hct 34.4 % (36-47) L 09/11/24 13:21 MCV 97.7 fl (85-98) 09/11/24 13:21 MCH 31.8 pg (27-33) 09/11/24 13:21 MCHC 32.6 g/dL (30-55) 09/11/24 13:21 RDW 14.7 % (12.1-15.1) 09/11/24 13:21 Sodium 135 mmol/L (136-145) L 09/11/24 13:21 Potassium 3.9 mmol/L (3.5-5.1) 09/11/24 13:21 Chloride 100 mmol/L (98-107) 09/11/24 13:21 Carbon Dioxide 22 mmol/L (22-29) 09/11/24 13:21 Anion Gap 16.9 (5-19) 09/11/24 13:21 BUN 29 mg/dL (8-23) H 09/11/24 13:21 Creatinine 0.9 mg/dL (0.5-0.9) 09/11/24 13:21 GFR Calculation Not Reportable 09/11/24 13:21 Treatment plan:: new consult Regimen:: New start vancomycin for pneumonia and sepsis. Patients calculated CrCl is <30 ml/min will receive Pulse dosing. Received 1000 mg load dose ~25mg/kg. Vancomycin level ordered 24 hours after load dose.
[2024-09-11 20:53] LABS: Lactate (Lactic Acid level) 2.3 mmol/L (0.5-2.2)
[2024-09-11] MEDS: lanolin oint 7 gm 1 APPLIC TOPICAL (21:54)
[2024-09-11] MEDS: LORazepam 1 mg Tablet 0.5 MG PO (22:09)
--- NOTE | 2024-09-11 22:25 | PC.NURSE ---
Arrival to ICU: Pt arrived to ICU 4 @1833
[2024-09-12] VITALS (58 sets, daily range): BP systolic 73–128; BP diastolic 45–72; PULSE 56–110; RESP 0–35; TEMP 36.3–36.5; O2SAT 84–100
[2024-09-12] MEDS: TRAMadol 50 mg Tablet PO (02:26)
[2024-09-12] MEDS: piperacillin-tazobactam 3.375 GM in sodium chloride 0.9% (plus) 50 ML IV ×3 (02:36→17:42)
[2024-09-12 03:59] LABS: Basophils % 0.1 %; Hematocrit 30.4 % (36-47); Lymphocytes # 1.2 10^3/uL (0.8-4.8); Lymphocytes % 5.7 %; Mean Corpuscular HGB Conc 31.6 g/dL (30-55); Mean Corpuscular Hemoglobin 31.5 pg (27-33); Mean Corpuscular Volume 99.7 fl (85-98); Mean Platelet Volume 9.3 fL (7.4-10.4); Monocytes # 0.3 10^3/uL (0.2-0.9); Monocytes % 1.2 %; Neutrophils # 19.44 10^3/uL (1.8-7.7); Neutrophils % 92.4 %; Nucleated Red Blood Cells % 0 %; Platelet Count 343 10^3/cmm (157-399); Red Blood Count 3.05 10^6/uL (3.85-5.65); Red Cell Distribution Width 14.8 % (12.1-15.1); White Blood Count 21.05 10^3/uL (3.29-11.43)
[2024-09-12] MEDS: acetaminophen 500 mg Tablet PO (03:59)
[2024-09-12] MEDS: midodrine 5 mg TABLET PO ×2 (04:29→17:10)
[2024-09-12 04:34] LABS: Anion Gap 15.5 (5-19); Blood Urea Nitrogen 25 mg/dL (8-23); C Reactive Protein 154.4 mg/L (0.0-4.9); Calcium 8.9 mg/dL (8.5-10.5); Carbon Dioxide 21 mmol/L (22-29); Chloride 103 mmol/L (98-107); Creatinine Clr Calc Pharmacy 29.6876; Glucose 149 mg/dL (65-115); Magnesium 1.8 mg/dL (1.7-2.3); Osmolality Calculated 289 mOsm/kg (285-295); Potassium 3.5 mmol/L (3.5-5.1); Sodium 136 mmol/L (136-145)
[2024-09-12] MEDS: clopidogrel 75 mg Tablet PO (09:06)
[2024-09-12] MEDS: pantoprazole 40 mg SDV IVP ×2 (09:06→17:42)
[2024-09-12] MEDS: sennosides-docusate Tablet 1 TAB PO (09:06)
[2024-09-12] MEDS: predniSONE 10 mg Tablet PO (09:07)
--- NOTE | 2024-09-12 13:11 | P.PN_ITS ---
Subjective 2 Subjective: seen this am feeling better overall Vitals/I&O/Wt Last Vital Signs Temp 97.7 F 09/12/24 05:05 Pulse 63 09/12/24 12:00 Resp 6 L 09/12/24 12:00 BP 104/53 09/12/24 12:00 Pulse Ox 98 09/12/24 10:00 O2 Del Method Nasal Cannula 09/12/24 08:26 O2 Flow Rate 2 09/12/24 08:26 09/11/24 09/12/24 09/12/24 22:59 06:59 14:59 Intake Total 2212.583 / 2212.583 450.624 / 2663.207 28.542 / 28.542 Output Total 250 / 250 100 / 350 Balance 1962.583 / 1962.583 350.624 / 2313.207 28.542 / 28.542 Weight last 48 hrs Weight 39.916 kg Weight 40.415 kg Weight 36.287 kg Physical Exam 2 Narrative: Frail female, Currently on 3 L No active distress, no respiratory distress normal s1, s2, abdomen soft , nontender, off levophed now. extremities wnl. Pleasant and cooperative neuro: non-focal Data 09/12/24 03:18 09/12/24 03:18 Micro: Microbiology 09/11/24 13:23 Blood Culture - Preliminary Blood SPECIMEN COLLECTED 09/11/24 13:21 Blood Culture - Preliminary Blood SPECIMEN COLLECTED A&P Assessment and plan (1) Hypotension: (2) Pulmonary hypertension: (3) Severe tricuspid regurgitation: (4) Elevated troponin: (5) D-dimer, elevated: (6) Pulmonary fibrosis: (7) Pneumonia: (8) COPD with acute exacerbation: (9) DNR (do not resuscitate): (10) Sepsis with acute hypoxic respiratory failure: Plan Sepsis related to right lower lobe pneumonia Septic shock 6 mics of Levophed which we are weaning down slowly Gentle fluid hydration which I will discontinue after 12 hours High D-dimer Request CTA chest Patient received septic bolus in the ER, will request lactic acid, blood cultures taken, I will keep her on broad-spectrum antibiotics Acute on chronic hypoxia: Currently on 3 L, at home uses 2 L at baseline on as- needed basis 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 with improved EF Currently does not look fluid overloaded Received septic bolus in the ER Received stress dose steroid 1 dose in the ER currently on 6 of Levophed Her echo was done recently I would not repeat at this point Abnormal D-dimer with elevated troponin, rule out PE requested CTA chest Considering low BMI and low creatinine clearance I have consulted pharmacy they recommended 40 mg once daily regimen for therapeutic Lovenox regimen at this point Patient is not endorsing any chest pain, EKG showing sinus tachycardia with PVCs Goals of care discussed with the patient in front of her daughters, she is DNR/DNI We will keep her on GI soft diet Patient was using a walker now bedbound secondary to worsening of fatigue lethargy and hypoxia DNR/DNI 09/12/2024 - continue antibiotics vanco and zosyn - pt s/o stress dose steroids - continue prednisone 10 daily - continue plavix - PT/OT when able - pt down to 2L NC - WBC 21K, - Check sputum culture gram stain - await blood cultures - pt off levophed - continue to monitor bp off pressors - transfer to csu once stable for 24 hours Attestations 2 Medical Necessity Statement*: More than 2 midnights anticipated for management of pneumonia and sepsis with septic shock Diagnoses Hypotension I95.9 Pulmonary hypertension I27.20 Severe tricuspid regurgitation I07.1 Elevated troponin R79.89 D-dimer, elevated R79.89 Pulmonary fibrosis J84.10 Pneumonia J18.9 COPD with acute exacerbation J44.1 DNR (do not resuscitate) Z66 Sepsis with acute hypoxic respiratory failure A41.9; R65.20; J96.01
[2024-09-12 13:50] LABS: Procalcitonin 0.31 ng/mL (0-0.5)
[2024-09-12] MEDS: sodium chloride 0.9% 1,000 ML 50 ML IV (16:55)
[2024-09-12] MEDS: enoxaparin 40 mg/0.4 mL Syringe SUBCUT (17:43)
[2024-09-12 19:17] LABS: Vancomycin Trough 6.2 ug/mL (10-15)
[2024-09-12] MEDS: atorvastatin 40 mg Tablet PO (20:50)
[2024-09-12] MEDS: LORazepam 1 mg Tablet 0.5 MG PO (20:50)
[2024-09-13] VITALS (26 sets, daily range): BP systolic 88–128; BP diastolic 49–76; PULSE 55–110; RESP 0–37; TEMP 36.2–36.6; O2SAT 86–100; BMI 16.0
[2024-09-13] MEDS: piperacillin-tazobactam 3.375 GM in sodium chloride 0.9% (plus) 50 ML IV ×3 (02:24→18:07)
[2024-09-13] MEDS: TRAMadol 50 mg Tablet PO (02:40)
[2024-09-13] MEDS: acetaminophen 500 mg Tablet PO ×3 (02:40→20:10)
[2024-09-13 05:33] LABS: Basophils % 0.1 %; Eosinophils % 0.1 %; Hematocrit 30.3 % (36-47); Lymphocytes # 2.9 10^3/uL (0.8-4.8); Lymphocytes % 12.7 %; Mean Corpuscular HGB Conc 29.7 g/dL (30-55); Mean Corpuscular Hemoglobin 31.8 pg (27-33); Mean Corpuscular Volume 107.1 fl (85-98); Mean Platelet Volume 9.7 fL (7.4-10.4); Monocytes # 1.1 10^3/uL (0.2-0.9); Monocytes % 4.8 %; Neutrophils # 18.26 10^3/uL (1.8-7.7); Neutrophils % 81.1 %; Nucleated Red Blood Cells % 0 %; Platelet Count 262 10^3/cmm (157-399); Red Blood Count 2.83 10^6/uL (3.85-5.65); Red Cell Distribution Width 14.9 % (12.1-15.1); White Blood Count 22.49 10^3/uL (3.29-11.43)
[2024-09-13 05:54] LABS: Alanine Aminotransferase 16 U/L (0-33); Albumin Level 2.3 g/dL (3.5-5.2); Alkaline Phosphatase 46 U/L (35-105); Anion Gap 14.7 (5-19); Aspartate Amino Transferase 36 U/L (0-32); Blood Urea Nitrogen 26 mg/dL (8-23); Calcium 9.3 mg/dL (8.5-10.5); Carbon Dioxide 19 mmol/L (22-29); Chloride 110 mmol/L (98-107); Creatinine Clr Calc Pharmacy 32.9861; Globulin 3.4 g/dL (1.3-4.6); Glucose 93 mg/dL (65-115); Magnesium 1.8 mg/dL (1.7-2.3); Osmolality Calculated 294 mOsm/kg (285-295); Potassium 3.7 mmol/L (3.5-5.1); Sodium 140 mmol/L (136-145); Total Bilirubin 0.3 mg/dL (0.15-1.2); Total Protein 5.7 g/dL (6.6-8.7)
--- NOTE | 2024-09-13 06:12 | P.PN_ITS ---
Subjective 2 Subjective: seen today on 2L NC at this time no acute events overnight wbc 22K, HB 9 Vitals/I&O/Wt Last Vital Signs Temp 97.2 F L 09/13/24 00:00 Pulse 68 09/13/24 01:00 Resp 26 H 09/13/24 01:00 BP 128/76 09/13/24 01:00 Pulse Ox 98 09/13/24 01:00 O2 Del Method Nasal Cannula 09/12/24 08:26 O2 Flow Rate 2 09/12/24 08:26 09/12/24 09/12/24 09/13/24 14:59 22:59 06:59 Intake Total 28.542 / 28.542 741.667 / 770.209 Output Total 220 / 220 Balance 28.542 / 28.542 521.667 / 550.209 Weight last 48 hrs Weight 39.916 kg Weight 40.415 kg Weight 36.287 kg Physical Exam 2 Narrative: Frail female, Currently on 2 L No active distress, no respiratory distress normal s1, s2, abdomen soft , nontender, off levophed now. extremities wnl. Pleasant and cooperative neuro: non-focal Data 09/13/24 04:38 09/13/24 04:38 Micro: Microbiology 09/11/24 13:23 Blood Culture - Preliminary Blood NEGATIVE TO DATE 09/11/24 13:21 Blood Culture - Preliminary Blood NEGATIVE TO DATE A&P Assessment and plan (1) Hypotension: (2) Pulmonary hypertension: (3) Severe tricuspid regurgitation: (4) Elevated troponin: (5) D-dimer, elevated: (6) Pulmonary fibrosis: (7) Pneumonia: (8) COPD with acute exacerbation: (9) DNR (do not resuscitate): (10) Sepsis with acute hypoxic respiratory failure: Plan Sepsis related to right lower lobe pneumonia Septic shock 6 mics of Levophed which we are weaning down slowly Gentle fluid hydration which I will discontinue after 12 hours High D-dimer Request CTA chest Patient received septic bolus in the ER, will request lactic acid, blood cultures taken, I will keep her on broad-spectrum antibiotics Acute on chronic hypoxia: Currently on 3 L, at home uses 2 L at baseline on as- needed basis 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 with improved EF Currently does not look fluid overloaded Received septic bolus in the ER Received stress dose steroid 1 dose in the ER currently on Levophed Her echo was done recently I would not repeat at this point Abnormal D-dimer with elevated troponin, rule out PE requested CTA chest Considering low BMI and low creatinine clearance I have consulted pharmacy they recommended 40 mg once daily regimen for therapeutic Lovenox regimen at this point Patient is not endorsing any chest pain, EKG showing sinus tachycardia with PVCs Goals of care discussed with the patient in front of her daughters, she is DNR/DNI We will keep her on GI soft diet Patient was using a walker now bedbound secondary to worsening of fatigue lethargy and hypoxia DNR/DNI 09/13/2024 - continue antibiotics vanco and zosyn - pt s/p stress dose steroids - continue prednisone 10 daily - continue plavix - PT/OT when able - pt down to 2L NC - WBC 22K, - Check sputum culture gram stain - await blood cultures - pt off levophed - continue to monitor bp off pressors - transfer to csu today - BP stable Attestations 2 Medical Necessity Statement*: continue to tx for pneumonia Coding Level of Care Code Acute Code for Chg Fwd Diagnoses Hypotension I95.9 Pulmonary hypertension I27.20 Severe tricuspid regurgitation I07.1 Elevated troponin R79.89 D-dimer, elevated R79.89 Pulmonary fibrosis J84.10 Pneumonia J18.9 COPD with acute exacerbation J44.1 DNR (do not resuscitate) Z66 Sepsis with acute hypoxic respiratory failure A41.9; R65.20; J96.01
[2024-09-13] MEDS: pantoprazole 40 mg SDV IVP ×2 (09:00→18:07)
[2024-09-13] MEDS: sennosides-docusate Tablet 1 TAB PO (09:00)
[2024-09-13] MEDS: clopidogrel 75 mg Tablet PO (09:00)
[2024-09-13] MEDS: midodrine 5 mg TABLET PO ×2 (09:00→18:06)
[2024-09-13] MEDS: predniSONE 10 mg Tablet PO (09:00)
[2024-09-13] MEDS: VANCOMYCIN ADD-Vantage 750 MG in 0.9% NaCl ADD-Vantage 250 ML 250 MG IV (10:14)
[2024-09-13] MEDS: cetylpyridinium Lozenge 1 EACH MUCOUS MEM ×2 (11:43→23:18)
--- NOTE | 2024-09-13 12:58 | PC.NURSE ---
frequent nonproductive cough , resulting in chest discomfort doctor called and cough drop given
--- NOTE | 2024-09-13 14:43 | PC.NURSE ---
report called and transfered to room 104
--- NOTE | 2024-09-13 14:56 | PC.NURSE ---
Patient transferred from ICU to CSU at 1435.
[2024-09-13] MEDS: atorvastatin 40 mg Tablet PO (20:06)
[2024-09-13] MEDS: enoxaparin 40 mg/0.4 mL Syringe SUBCUT (20:06)
[2024-09-13] MEDS: LORazepam 1 mg Tablet 0.5 MG PO (20:06)
[2024-09-14] VITALS (53 sets, daily range): BP systolic 84–124; BP diastolic 52–85; PULSE 64–140; RESP 12–59; TEMP 36.6–36.7; O2SAT 76–99
[2024-09-14] MEDS: guaiFENesin 100 mg/5 mL UDC 10 mL PO (00:16)
[2024-09-14] MEDS: TRAMadol 50 mg Tablet PO ×3 (01:47→21:38)
[2024-09-14] MEDS: acetaminophen 500 mg Tablet PO (01:49)
[2024-09-14] MEDS: cetylpyridinium Lozenge 1 EACH MUCOUS MEM (02:08)
[2024-09-14] MEDS: piperacillin-tazobactam 3.375 GM in sodium chloride 0.9% (plus) 50 ML IV ×2 (02:08→17:32)
[2024-09-14 03:48] LABS: Basophils % 0.1 %; Eosinophils # 0.1 10^3/uL (0.0-0.8); Eosinophils % 0.4 %; Hematocrit 29.4 % (36-47); Lymphocytes # 2.2 10^3/uL (0.8-4.8); Lymphocytes % 15.6 %; Mean Corpuscular HGB Conc 32.3 g/dL (30-55); Mean Corpuscular Hemoglobin 31.9 pg (27-33); Mean Corpuscular Volume 98.7 fl (85-98); Mean Platelet Volume 9.2 fL (7.4-10.4); Monocytes # 0.9 10^3/uL (0.2-0.9); Neutrophils # 11.04 10^3/uL (1.8-7.7); Neutrophils % 77.3 %; Nucleated Red Blood Cells % 0 %; Platelet Count 327 10^3/cmm (157-399); Red Blood Count 2.98 10^6/uL (3.85-5.65); Red Cell Distribution Width 14.8 % (12.1-15.1); White Blood Count 14.27 10^3/uL (3.29-11.43)
[2024-09-14 04:31] LABS: Anion Gap 16.3 (5-19); Blood Urea Nitrogen 21 mg/dL (8-23); Calcium 9.2 mg/dL (8.5-10.5); Carbon Dioxide 21 mmol/L (22-29); Chloride 109 mmol/L (98-107); Glucose 94 mg/dL (65-115); Magnesium 1.7 mg/dL (1.7-2.3); Osmolality Calculated 299 mOsm/kg (285-295); Potassium 3.3 mmol/L (3.5-5.1); Sodium 143 mmol/L (136-145)
--- NOTE | 2024-09-14 07:58 | ECG_ITS ---
[employer] Test Date: 2024-09-14 Pat Name: Karen Hernandes Department: Room: 104 Gender: Female Hip Hop Dance Instructor: : 1940 Requested By: Rachelle Chamorro Order Number: [id number] Alexia MD: Isabel Hardwick M.D. Measurements Intervals [place] Rate: 140 P: 0 NE: 0 QRS: -48 QRSD: 97 T: -22 QT: 229 QTc: 350 Interpretive Statements sinus tachycardia with a rate of 140 bpm possible left atrial enlargement nonspecific IVCD LOW QRS VOLTAGE [QRS DEFLECTION < 0.5/1.0 mV IN LIMB/CHEST LEADS] POSSIBLE ANTERIOR MYOCARDIAL INFARCTION , PROBABLY OLD [30 ms Q WAVE IN V3/V4, OR R < 0.2 mV IN V4].INFERIOR MYOCARDIAL INFARCTION , PROBABLY OLD [40+ ms Q WAVE AND/OR ST/T ABNORMALITY IN II/aVF] Compared to ECG 09/11/2024 20:51:11 Sinus rhythm no longer present Ventricular premature complex(es) no longer present.T-wave abnormality no longer present Possible ischemia no longer present. Myocardial infarct finding still present Electronically Signed On 09-14-2024 19:22:40 VOCAL MUSIC INSTRUCTOR by Isabel Hardwick M.D. [email or web address]
[2024-09-14] MEDS: clopidogrel 75 mg Tablet PO (08:11)
[2024-09-14] MEDS: midodrine 5 mg TABLET PO (08:11)
[2024-09-14] MEDS: sennosides-docusate Tablet 1 TAB PO (08:11)
[2024-09-14] MEDS: metoprolol tartrate 1 mg/1 mL SDV 5 mL 5 MG IVP ×3 (08:27→10:38)
[2024-09-14] MEDS: predniSONE 10 mg Tablet PO (08:30)
[2024-09-14] MEDS: pantoprazole 40 mg SDV IVP ×2 (08:31→17:30)
[2024-09-14] MEDS: VANCOMYCIN ADD-Vantage 750 MG in 0.9% NaCl ADD-Vantage 250 ML 250 MG IV (08:32)
[2024-09-14] MEDS: LORazepam 2 mg/mL INJ 1 mL 0.25 MG IVP (09:09)
[2024-09-14] MEDS: magnesium sulfate premix 2 GM/50 ML PIGGYBACK IV (09:58)
[2024-09-14] MEDS: hydrocortisone 100 mg/2 mL SDV IVP ×3 (09:59→21:38)
--- NOTE | 2024-09-14 10:20 | ECG_ITS ---
[employer] Test Date: 2024-09-14 Pat Name: Karen Hernandes Department: Room: 104 Gender: Female Financial Systems Director: : 1940 Requested By: Bharath Cabral Order Number: [id number] Alexia MD: Isabel Hardwick M.D. Measurements Intervals [place] Rate: 91 P: 48 ID: [id number] QRS: -40 QRSD: 98 T: -20 QT: 334 QTc: 412 Interpretive Statements SINUS RHYTHM LEFT AXIS DEVIATION [QRS AXIS < -30] LOW QRS VOLTAGE [QRS DEFLECTION < 0.5/1.0 mV IN LIMB/CHEST LEADS] MODERATE ST DEPRESSION [0.05+ mV ST DEPRESSION] Compared to ECG 09/14/2024 08:08:40 Left-axis deviation now present ST (T wave) deviation now present Atrial fibrillation no longer present Myocardial infarct finding no longer present Electronically Signed On 09-14-2024 19:29:25 RN [employer] by Isabel Hardwick M.D. [id number]
[2024-09-14] MEDS: LORazepam 2 mg/mL INJ 1 mL 0.25 MG IM (10:37)
[2024-09-14] MEDS: FUROsemide 10 mg/mL SDV 2mL 20 MG IVP (10:38)
[2024-09-14 10:40] LABS: C.Diff PCR (Lab) NEGATIVE (Negative)
[2024-09-14] MEDS: norepinephrine 4 MG/250 ML BAG 7.5 MG IV (11:07)
--- NOTE | 2024-09-14 11:10 | PC.NURSE ---
called to patients room to help staff start an IV, nurse communicated prior to my entry her concerns with patients HR and respiratory status. Upon entering patient with respirations of 48 HR of 134 and restless. attempts made to obtain another line unsuccessful due to restlessness. provider notified of events and at bedside instruction orders placed and transferred to ICU. upon transfer patient was calm on bi pap
--- NOTE | 2024-09-14 11:13 | PC.NURSE ---
Patient transferred to ICU from CSU at around approximately 1100. Dr. Julien aware, levophed started, see MAR
[2024-09-14 11:25] LABS: Troponin(5th) Baseline 242 ng/L (0-10)
[2024-09-14 11:35] LABS: Bilirubin Urine Negative (Negative); Blood Urine Negative (Negative); Glucose Urine UA Negative (Normal); Ketones Urine Negative (Negative); Leukocyte Esterase Urine Trace (Negative); Nitrate Urine Negative (Negative); Protein Urine 1+ (Negative); Specific Gravity, Urine 1.028 (1.005-1.030); Urine Appearance Cloudy (CLEAR); Urine Color Yellow (Yellow); Urobilinogen Urine 0.2 mg/dL (Negative); pH Urine 5.5 (5-7)
--- NOTE | 2024-09-14 11:38 | XR_ITS ---
WS: [id number] PORTABLE CHEST HISTORY: Post PICc insertion COMPARISON: 09/11/2024 Right-sided PICC line is noted with tip ending at the aortocaval junction. Volume loss in the RIGHT thorax. There is diffuse reticular nodular opacifications throughout both dilia ngs but greatest on the RIGHT. Opacifications and fluid have progressed since 09/11/2024. No pneumoth orax. Cardiac size: Mildly enlarged cardiac silhouette. Mediastinum/Aorta: Mild atherosclerosis aorta. No osseous abnormality seen. XR/XR chest 1V portable [id number] IMPRESSION: 1. Satisfactory position right-sided PICC line. 2. Diffuse bilateral reticular nodular opacifications, greatest on the RIGHT. Combination of pneumonia, edema and chronic interstitial lung disease.
[2024-09-14 11:39] LABS: Add Urine Microscopic? YES; Bacteria Urine None Seen /hpf; Hyaline Casts Urine 9.91 /lpf; Squamous Epithelial Cell Urine 0-5 /hpf (0-5)
--- NOTE | 2024-09-14 11:44 | PC.NURSE ---
Patient complaints of chest pain, 03/09. Patient is tachypnic, RR in the 40's. Heart rate is 150's Afib RVR. Ekg obtained, physician notified. Received orders to give metoprolol 5mg IVP and ativan 0.25mg IVP. Patient continues to be restless and tachypnic. Heart rate improved from 150's to 110's. But breathing has not improved. Patient then developed course crackles in all lung collazo. Heart rate increased again back into the 130's. Additional 5mg IVP metoprolol given. Orders for shields catheter, additional 0.25mg ativan given, and 20mg of lasix. Patients bp unstable, patient transferred to ICU on Bipap with resp and critical childcare attendant GUERO Carlisle> Report given to GUERO Peguero>
[2024-09-14 11:54] LABS: UA Slide Review UA Slide Review Perf
[2024-09-14 11:55] LABS: Calcium Oxalate Crystals Urine 25-40 /hpf
[2024-09-14 11:56] LABS: Adenovirus Not Detected (NOT DETECT); Chlamydia Pneumoniae Not Detected (NOT DETECT); Coronavirus 229E,HKU1,NL63,OC4 Not Detected (NOT DETECT); Human Metapneumovirus Not Detected (NOT DETECT); Human Rhinovirus/Enterovirus Not Detected (NOT DETECT); Influenza A Not Detected (NOT DETECT); Influenza A H1 Not Detected (NOT DETECT); Influenza A H1-2009 Not Detected (NOT DETECT); Influenza A H3 Not Detected (NOT DETECT); Influenza B Not Detected (NOT DETECT); Mycoplasma Pneumoniae Not Detected (NOT DETECT); Parainfluenza Virus Type 1 Not Detected (NOT DETECT); Parainfluenza Virus Type 2 Not Detected (NOT DETECT); Parainfluenza Virus Type 3 Not Detected (NOT DETECT); Parainfluenza Virus Type 4 Not Detected (NOT DETECT); Respiratory Syncytial Virus A Not Detected (NOT DETECT); Respiratory Syncytial Virus B Not Detected (NOT DETECT); SARS-COV-2 Not Detected (NOT DETECT)
[2024-09-14 11:56] LABS: Add Urine Culture? No; Amorphous Sediment Urine TRACE /hpf; Uric Acid Crystals Urine 0-4 /hpf
--- NOTE | 2024-09-14 12:00 | PICC.NOTE ---
Double lumen PICC placed to right brachial vein. Referred to vascular access nurse for PICC placement due to poor access and need for IV potassium. Risks and benefits discussed and informed consent obtained from pt daughter, Ulises. Right arm assessed with right brachial vein measuring 4.2 mm, straight, and apparent best choice for placement. Using sterile technique and MST, right brachial vein accessed x 1 stick. Mid-arm circumference measured 10 cm from right AC 19 cm. Trimmed cath 42 cm with 3 cm external length noted. CXR shows tip in cavoatrial junction, in good position for use per radiologist. Line secured with stat-lock. Insertion site covered with Biopatch and TSM. Report given to bedside nurse, GUERO Peguero.
--- NOTE | 2024-09-14 12:20 | P.PN_ITS ---
Subjective 2 Subjective: This morning she has not been feeling well, feeling cold, coughing, with generalized body ache. Additionally developed A-fib with RVR. Vitals/I&O/Wt Last Vital Signs Temp 97.9 F 09/14/24 08:06 Pulse 96 09/14/24 12:00 Resp 31 H 09/14/24 12:00 BP 88/64 09/14/24 12:00 Pulse Ox 96 09/14/24 11:04 O2 Del Method BiPAP 09/14/24 10:00 O2 Flow Rate 2 09/14/24 08:06 FiO2 100 09/14/24 11:04 09/13/24 09/14/24 09/14/24 22:59 06:59 14:59 Intake Total 1050 / 1150 50 / 1200 800.750 / 800.750 Output Total 400 / 400 Balance 1050 / 1150 -350 / 800 800.750 / 800.750 Weight last 48 hrs Weight 41.867 kg Weight 39.916 kg Physical Exam 2 Narrative: Ill-appearing. Pale. Accompanied by family. Const: COMMON NORMALS: patient oriented x3 and alert GENERAL APPEARANCE: c ooperative ORIENTATION/CONSCIOUSNESS: Yes awake HENMT: COMMON NORMALS: oropharynx normal Neck/C-Spine: COMMON NORMALS: no JVD Resp: COMMON NORMALS: normal respiratory effort and clear to auscultation bilaterally AUSCULTATION: clear to auscultation bilaterally Cardio: COMMON NORMALS: no JVD, regular rhythm, S1 normal heart sound present, S2 normal heart sound present and No murmurs present (Cardio) RHYTHM: regular rhythm HEART SOUNDS: S1 normal heart sound present and S2 normal heart sound present GI: COMMON NORMALS: Normal to inspection, nondistended, normoactive bowel sounds present, Soft to palpation and non-tender PALPATION: Yes Soft to palpation Extremity: COMMON NORMALS: no joint enlargement and no pedal edema Neuro: COMMON NORMALS: patient oriented x3 and moves all extremities S ENSORIUM/ORIENTATION: Yes alert Skin: COMMON NORMALS: no rashes or lesions noted GENERAL SKIN EXAM: no rashes or lesions noted Urinary Catheter Management: Roche: Cath Placed During This Visit: yes Urinary Catheter Date of Insertion: 09/14/24 Urinary Catheter Time of Insertion: 10:30 Data 09/14/24 03:14 09/14/24 03:14 A&P Assessment and plan (1) Hypotension: (2) Pulmonary hypertension: (3) Severe tricuspid regurgitation: (4) Elevated troponin: (5) D-dimer, elevated: (6) Pulmonary fibrosis: (7) Pneumonia: (8) COPD with acute exacerbation: (9) DNR (do not resuscitate): (10) Sepsis with acute hypoxic respiratory failure: Plan Sepsis related to right lower lobe pneumonia Septic shock: Her condition worsened this morning, feeling cold, although maintain blood pressure, but developed A-fib with RVR. Appearing ill. Coughing. Hypoxia. Reviewed vitals, CBC, BMP, magnesium, COVID, flu, RSV PCR. A-fib with RVR responded to IV push of metoprolol 5 mg, heart rates down to 100s-100 and teens. Still with malaise, cough, feeling cold. Noted some persistent leukocytosis 14.27, although overall with improvement. Tachypneic 40s-50s. Reviewed recent CTA, no PE. On VTE prophylaxis with Lovenox. Continued. Continues on broad-spectrum antibiotic coverage with Zosyn, vancomycin. Recently on Levophed, on review of her medications on prednisone chronically. Added stress dose steroids with hydrocortisone 100 mg every 6 hours with suspected adrenal insufficiency. Moved to ICU. Shortly after blood pressure noted with hypotension, shock, systolic blood pressure down as low as 66. Per discussion with her daughter her blood pressure usually does run on the low side 80s-90s, but is certainly lower. Restarted Levophed. Obtain troponin EKG series. Replace magnesium, potassium. Monitor telemetry. Respiratory viral panel requested. Additionally with diarrhea requested C. difficile, Salmonella, Shigella, Campylobacter. With rhonchi, crackles on exam, suspected possible decompensated CHF/pulm edema, started on BiPAP. Roche placed, given a dose of 20 mg IV Lasix. Discussed with nursing, respiratory, mental health case manager. Hold further IV fluids. Discussed with cardiology. A-fib with RVR: Response to initial treatment with metoprolol 5 mg IV. Heart rate with improvement down to 110, but still with malaise. Started on 25 mg twice daily oral maintenance. Heart rate afterwards with some worsening again up to 130s, repeat dose 5 mg. Same time was placed on BiPAP. Complicated by hypotension as above. Troponin location: Noted baseline elevated troponin 42, possibly demand ischemia secondary to A-fib with RVR, although 2-hour troponin also with further elevation up to 460.5. Reviewed prior echocardiogram, reviewed cardiac cath in 2022, coronary to disease with complex lesions. Add aspirin 225 mg, continue Plavix, change Lovenox to every 12 for now. Appreciate cardiology consultation. Requested additional repeat limited echocardiogram. Acute on chronic hypoxia: Currently on 3 L, at home uses 2 L at baseline on as- needed basis 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 with improved EF. With decompensated CHF/pulmonary edema as above. Roche placed. 20 mg IV Lasix. Monitor NAYELI. Weights. Cardiac monitoring telemetry. Replace electrolytes, potassium magnesium. Monitor for risk factor deficiency with IV diuretic, reassessment of function. Reassess electrolytes. Monitor telemetry. Reviewed echocardiogram. Abnormal D-dimer with elevated troponin, reviewed CTA chest, no PE Considering low BMI and low creatinine clearance I have consulted pharmacy they recommended 40 mg once daily regimen for therapeutic Lovenox regimen at this point Patient is not endorsing any chest pain, EKG showing sinus tachycardia with PVCs Goals of care discussed with the patient in front of her daughters, she is DNR/DNI We will keep her on GI soft diet Patient was using a walker now bedbound secondary to worsening of fatigue lethargy and hypoxia DNR/DNI PT/OT when able Attestations 2 Medical Necessity Statement*: Continue admission for assessment management of shock, possible septic shock, pneumonia, A-fib with RVR, underlying complex CAD, troponin rise, decompensated CHF, pulm edema. Coding Level of Care Code Critical Care >/= 30 minutes Critical care time (in minutes): 45 The high probability of a clinically significant, sudden or life threatening deterioration, as referenced in this documentation, required my full and direct attention, intervention and personal management. The critical care time shown is in addition to time spent performing any reported separately billable procedures and includes the following: [x] Data and vital sign review and interpretation [x ] Patient assessment, examination and intervention [x] Medication orders and management [x] Patient/Family updates as able [x] Care Coordination and Documentation. Diagnoses Hypotension I95.9 Pulmonary hypertension I27.20 Severe tricuspid regurgitation I07.1 Elevated troponin R79.89 D-dimer, elevated R79.89 Pulmonary fibrosis J84.10 Pneumonia J18.9 COPD with acute exacerbation J44.1 DNR (do not resuscitate) Z66 Sepsis with acute hypoxic respiratory failure A41.9; R65.20; J96.01
[2024-09-14 13:25] LABS: Troponin 5 2HR 460.5 ng/L (0-10); Troponin 5 2HR Delta 218.5 ABS# (0-10)
--- NOTE | 2024-09-14 13:33 | USCV_ITS ---
Karen Hernandes Age: 84 Gender: F : 1940 Exam Date: 09/14/2024 14:32 Ordering Phys: Bharath Cabral MD Technologist: Exam [place] [facility] [place]: ? thrombus BP: 103 / 73 HR: Rhythm: Sinus Technical Quality: Adequate MEASUREMENTS (Male / Female) Normal Values 2D ECHO LV Ejection Fraction MOD 4C 45.7 % LV Ejection Fraction MOD 2C 57.8 % LV Ejection Fraction 2C AL 56.1 % FINDINGS Left Ventricle Right Ventricle Right Atrium Left Atrium Mitral Valve Aortic Valve Tricuspid Valve Pulmonic Valve Pericardium Aorta IVC CONCLUSIONS Technically limited quality echocardiogram because of poor ultrasonic windows. Grossly LV systolic function is moderate to severely reduced. Regional wall motion abnormalities cannot accurately be assessed however apical wall appears severely hypokinetic. Can not rule out LV apical thrombus Juan Dugan MD (Electronically Signed) Final Date: 14 September 2024 16:26 S
--- NOTE | 2024-09-14 14:20 | ECG_ITS ---
[employer] Test Date: 2024-09-14 Pat Name: Karen Hernandes Department: Room: ICU01 Gender: Female Customer Assistance Associate: : 1940 Requested By: Bharath Cabral Order Number: [id number] Reading MD: Isabel Hardwick M.D. Measurements Intervals [place] Rate: 89 P: 43 DC: 172 QRS: -23 QRSD: 86 T: -83 QT: 328 QTc: 399 Interpretive Statements SINUS RHYTHM BORDERLINE LEFT AXIS DEVIATION [QRS AXIS < -20] ST DEVIATION AND MODERATE T-WAVE ABNORMALITY, CONSIDER ANTEROLATERAL ISCHEMIA [-0.1+ mV T-WAVE IN V3-V6] ST DEVIATION AND MODERATE T-WAVE ABNORMALITY, CONSIDER INFERIOR ISCHEMIA [-0.1+ mV T-WAVE IN II/aVF] Compared to ECG 09/14/2024 10:47:35 T-wave abnormality now present Possible ischemia now present ST (T wave) deviation no longer present Electronically Signed On 09-14-2024 19:29:34 SWITCH OPERATOR by Isabel Hardwick M.D. [email or web address]
[2024-09-14] MEDS: enoxaparin 40 mg/0.4 mL Syringe SUBCUT (14:53)
[2024-09-14] MEDS: perflutren protein-a microsphr 0.22 mg/mL SDV 3 mL IV (14:54)
--- NOTE | 2024-09-14 16:28 | P.CONIM_ITS ---
<Statement entered by Juan Dugan M.D - 09/15/24 07:52> Patient was evaluated and cared for in conjunction with an advanced practice practitioner.? I personally examined the patient and reviewed the chart and all pertinent data including imaging, telemetry, and laboratory results.? I discussed the patient in detail with the advanced practice practitioner.? Please see? their note for complete consult note, results and agreed upon plan of care for the patient. Patient is unresponsive. On Bipap. Briefly, she had presented with respiratory failure. Had possible pneumonia. Was doing better yesterday. Overnight she deteriorated. Went into A-fib with RVR. This was followed with worsening breathing status. Currently on BiPAP. Does not respond to questions. GENERAL: Patient does not respond HEART: Regular S1 and S2 LUNGS: Diminished air entry. CENTRAL NERVOUS SYSTEM:Non responsive at this time EXTREMITIES: Lower extremities with out edema bilaterally. Assesment and Plan (1) Cardiomyopathy (2) Sinus tachycardia (3) Severe tricuspid regurgitation (4) Elevated troponin (5) Congestive heart failure Patient has history of severe CAD and was deemed not amenable to intervention in the past. Patient and family decided not to proceed with any invasive procedures. She is DNR/DNI. She has clinically deteriorated overnight. Was initially requiring pressor support however is off of it at time of my evaluation. She does not respond to questions. Sleepy and drowsy. On BiPAP. Echo shows moderate to severely reduced LV systolic function. This is a change from before. Limited quality echocardiogram however possibility of LV thrombus cannot be ruled out. Continue anticoagulation. Consider ruling out stroke. Heart rates are better controlled at this time. Thank you for involving us with care of this patient. We will continue to follow. Please call with questions Providers/Reason For Consult 2 Consulting Physician/Specialty*: Dr. Jameson Reason for Consult*: Acute CHF, elevated troponin Requesting Physician: Dr. Cabral Attending Physician: Bharath Cabral Primary Care Provider: Eber Albarran MD History of Present Illness History of Present Illness Karen Hernandes is a 84 year old female who came into the ER about 3 days ago with weakness fatigue and increased shortness of breath. She has a history of pulmonary fibrosis she uses oxygen at home as needed has a history of complex severe coronary artery disease, heart failure, and COPD. Patient had an elevated D-dimer and CTA of the chest ruled out pulmonary embolus. She was treated for pneumonia with steroids and antibiotics. Patient developed A-fib RVR and was given 5 mg of metoprolol and responded. X-ray head showed combination of pulmonary edema and pneumonia. Lasix 20 mg was given. Patient was transferred back to the ICU and placed on BiPAP. Patient's troponin was elevated from 2 42-4 60 with a positive delta of 218. At the time of my evaluation patient is nonresponsive pupils are pinpoint. She is currently on Levophed at 8 mcg/min. BP soft. Family is present at bedside. Previously patient had an EF of 40% that had improved to the 50s and is now severely reduced around 30%. LV thrombus could not be ruled out. Family denies her having any recent chest pain. Review of Systems 2 Narrative: Unable to obtain due to patient on BiPAP and nonresponsive. Medications/Allergies Home Medications Medication Instructions Recorded Confirmed Last Taken Type lorazepam 1 mg tablet 0.5 - 1 mg PO DAILY PRN Anxiety 01/22/23 09/11/24 Unknown History nitroglycerin 0.4 mg sublingual 0.4 mg sublingual Q5M PRN Chest 04/05/23 09/11/24 Unknown History tablet (Nitrostat) Pain Acapella #1 ea 06/10/23 09/11/24 Unknown Rx tiotropium bromide 18 mcg capsule 1 cap inhalation DAILY #60 06/10/23 09/11/24 10/07/23 Rx with inhalation device (Spiriva inhalations with HandiHaler) sennosides 8.6 mg-docusate sodium 1 tab PO DAILY #10 tabs 10/09/23 09/11/24 Unknown Rx 50 mg tablet (Stool Softener-Laxative) tramadol 50 mg tablet 50 mg PO Q8H PRN Pain #20 tabs 10/09/23 09/11/24 09/11/24 Rx sacubitril 24 mg-valsartan 26 mg 0.5 tab PO BID #30 tabs 05/25/24 09/11/24 09/11/24 Rx tablet (Entresto) atorvastatin 40 mg tablet 40 mg PO BEDTIME 30 days #30 tabs 06/08/24 09/11/24 09/11/24 Rx clopidogrel 75 mg tablet (Plavix) 75 mg PO DAILY 30 days #30 tabs 06/08/24 09/11/24 09/11/24 Rx furosemide 20 mg tablet 20 mg PO DAILY #90 tabs 09/09/24 09/11/24 09/11/24 Rx prednisone 10 mg tablet 10 mg PO DAILY 09/11/24 09/11/24 09/11/24 History Allergies Allergy/AdvReac Type Severity Reaction Status Date / Time meperidine [From Demerol] Allergy ADR-Halluci Verified 06/08/24 14:13 nating Current Medications Generic Name Dose Route Start Last Admin Trade Name Freq PRN Reason Stop Dose Admin Acetaminophen 500 mg 09/11/24 18:07 09/14/24 01:49 Acetaminophen 500 Mg Tablet PO 500 mg Q4H PRN Administration fever Aspirin 325 mg 09/14/24 13:40 09/14/24 14:36 Aspirin 325 Mg Tablet PO Not Given DAILY BENITA Atorvastatin Calcium 40 mg 09/11/24 21:00 09/13/24 20:06 Atorvastatin 40 Mg Tablet PO 40 mg BEDTIME BENITA Administration Benzocaine 1 each 09/13/24 11:12 09/14/24 02:08 Cetylpyridinium Lozenge MUCOUS MEM 1 each Q2H PRN Administration SORE THROAT Clopidogrel Bisulfate 75 mg 09/12/24 09:00 09/14/24 08:11 Clopidogrel 75 Mg Tablet PO 75 mg DAILY BENITA Administration Enoxaparin Sodium 40 mg 09/14/24 13:45 09/14/24 14:53 Enoxaparin 40 Mg/0.4 Ml Syringe SUBCUT 40 mg Q12H BENITA Administration Guaifenesin 100 mg 09/13/24 23:50 09/14/24 00:16 Guaifenesin 100 Mg/5 Ml Udc 10 Ml PO 100 mg Q4H PRN Administration COUGH AND CONGESTION Hydrocortisone Sodium Succinate 100 mg 09/14/24 09:00 09/14/24 14:53 Hydrocortisone 100 Mg/2 Ml Sdv IVP 100 mg Q6H BENITA Administration Norepinephrine Bitartrate 4 mg in 250 mls @ 0 mls/hr 09/11/24 16:45 09/14/24 11:45 Levophed IV 8 mcg/min .Q0M BENITA 30 mls/hr Titration Protocol Per Protocol Piperacillin Sod/Tazobactam 50 mls @ 12.5 mls/hr 09/11/24 19:30 09/14/24 11:07 Sod 3.375 gm/ Sodium Chloride IV Not Given Q8H BENITA Sodium Chloride 1,000 mls @ 50 mls/hr 09/11/24 19:45 09/13/24 17:05 Sodium Chloride 0.9% IV Infused .Q20H BENITA Infusion Vancomycin HCl 750 mg/ Sodium 250 mls @ 250 mls/hr 09/13/24 09:30 09/14/24 11:12 Chloride IV Infused Q24H BENITA Infusion Lanolin 1 applic 09/11/24 21:46 09/11/24 21:54 Lanolin Oint 7 Gm TOPICAL 1 applic PRN PRN Administration DRYNESS Lorazepam 0.5 mg 09/11/24 18:07 09/13/24 20:06 Lorazepam 1 Mg Tablet PO 0.5 mg DAILY PRN Administration Anxiety Metoprolol Tartrate 25 mg 09/14/24 09:30 09/14/24 10:26 Metoprolol Tartrate 25 Mg Tablet PO Not Given BID@0900,2100 BENITA Midodrine 5 mg 09/12/24 04:30 09/14/24 08:11 Midodrine 5 Mg Tablet PO 5 mg BID BENITA Administration Pantoprazole Sodium 40 mg 09/11/24 18:15 09/14/24 08:31 Pantoprazole 40 Mg Sdv IVP 40 mg BID BENITA Administration Prednisone 10 mg 09/12/24 09:00 09/14/24 08:30 Prednisone 10 Mg Tablet PO 10 mg DAILY BENITA Administration Senna/Docusate Sodium 1 tab 09/12/24 09:00 09/14/24 08:11 Sennosides-Docusate Tablet PO 1 tab DAILY BENITA Administration Senna/Docusate Sodium 1 tab 09/12/24 09:00 09/14/24 08:53 Sennosides-Docusate Tablet PO Not Given DAILY BENITA Tramadol HCl 50 mg 09/11/24 18:07 09/14/24 08:10 Tramadol 50 Mg Tablet PO 50 mg Q8H PRN Administration Pain PFSH Acute 2 PFSH: Medical History Pulmonary hypertension Severe tricuspid regurgitation Acute exacerbation of idiopathic pulmonary fibrosis SOB (shortness of breath) Productive cough NSTEMI (non-ST elevated myocardial infarction) Pulmonary emphysema with fibrosis of lung Compression fracture of T7 vertebra Bronchiectasis Sepsis Hyponatremia Leukocytosis Right lower lobe pneumonia T12 vertebral fracture Atherosclerotic heart disease of tejon coronary artery with other forms of angina pectoris Ischemic cardiomyopathy Cardiomyopathy Traumatic compression fracture of T12 thoracic vertebra Allergic rhinitis COVID Pneumonia Surgical History History of abdominal surgery H/O section Family History Father Myocardial infarction Family/Other Breast cancer Social History Smoking and tobacco/nicotine status: former use of tobacco/nicotine Quit status (tobacco/nicotine): has quit using Year quit tobacco: 50-60 years ago Alcohol intake: never Substance/Drug Use: never Vitals/I&O/Wt Last Vital Signs Temp 97.9 F 09/14/24 08:06 Pulse 105 H 09/14/24 16:00 Resp 23 H 09/14/24 14:00 BP 102/77 09/14/24 16:00 Pulse Ox 96 09/14/24 11:04 O2 Del Method BiPAP 09/14/24 10:00 O2 Flow Rate 2 09/14/24 08:06 FiO2 100 09/14/24 11:04 09/14/24 09/14/24 09/14/24 06:59 14:59 22:59 Intake Total 50 / 1200 800.750 / 800.750 Output Total 400 / 400 Balance -350 / 800 800.750 / 800.750 Weight last 48 hrs Weight 92 lb 4.8 oz Weight 88 lb Physical Exam 2 Narrative: General: Currently on BiPAP HENMT: normoceophalic Eye: Pupils are pinpoint with minimal to no response Lymphatic: no lymphedema noted Respiratory: Normal respiratory effort, crackles throughout, worse on the right mid lung and base Cardio: No JVD, regular rate, regular rhythm, S1 S2 normal, no murmurs, peripheral pulses 2+ throughout GI: Normal to inspection, nondistended Extremities: Full ROM, normal, normal capillary refill, no cyanosis or edema Neuro: nonresponsive Skin: No rashes or lesions noted, no wounds Urinary Catheter Management: Roche: Cath Placed During This Visit: yes Urinary Catheter Date of Insertion: 09/14/24 Urinary Catheter Time of Insertion: 10:30 Data 09/14/24 03:14 09/14/24 03:14 A&P Assessment and plan (1) Cardiomyopathy: Qualifiers: Cardiomyopathy type: ischemic Qualified Code(s): I25.5 - Ischemic cardiomyopathy (2) Sinus tachycardia: (3) Severe tricuspid regurgitation: (4) Elevated troponin: (5) Congestive heart failure: Qualifiers: Heart failure type: systolic Heart failure chronicity: chronic Qualified Code(s): I50.22 - Chronic systolic (congestive) heart failure (6) Hypotension: Plan At this time patient is on Levophed and nonresponsive. Pupils are constricted. LV thrombus could not be ruled out on the echo and her EF is now severely diminished which is a change. From cardiology standpoint, there are no further interventions indicated. Family is present at the time of my evaluation. I did discuss this case with Dr. Dugan. She may have had a stroke. From cardiology standpoint, no further coronary interventions recommended. Family is very understanding of this. Thank you for allowing us to care for this patient. Consult Attestations 2 Medical Necessity Statement: Deferred to primary. Coding Level of Care Code Acute Code for [facility] Fwd Diagnoses Ischemic cardiomyopathy I25.5 Cardiomyopathy type: ischemic Sinus tachycardia R00.0 Severe tricuspid regurgitation I07.1 Elevated troponin R79.89 Chronic systolic congestive heart failure I50.22 Heart failure type: systolic Heart failure chronicity: chronic Hypotension I95.9
[2024-09-14 17:43] LABS: Troponin 5 6HR 464.7 ng/L (0-10); Troponin 5 6HR Delta 222.7 ng/L (0-12)
[2024-09-14] MEDS: metoprolol tartrate 25 mg Tablet PO (21:34)
[2024-09-14] MEDS: atorvastatin 40 mg Tablet PO (21:34)
[2024-09-15] VITALS (98 sets, daily range): BP systolic 80–119; BP diastolic 50–82; PULSE 58–106; RESP 0–39; TEMP 36.5–36.7; O2SAT 77–100; BMI 15.9
--- NOTE | 2024-09-15 01:21 | PC.NURSE ---
Levo titration: Upon arrival to shift levo was off, MAR updated to reflect this.
[2024-09-15] MEDS: hydrocortisone 100 mg/2 mL SDV IVP ×4 (02:21→20:22)
[2024-09-15] MEDS: enoxaparin 40 mg/0.4 mL Syringe SUBCUT ×2 (02:21→14:36)
[2024-09-15] MEDS: piperacillin-tazobactam 3.375 GM in sodium chloride 0.9% (plus) 50 ML IV ×3 (02:21→17:26)
[2024-09-15 03:34] LABS: Basophils % 0.2 %; Hematocrit 29.6 % (36-47); Lymphocytes # 1.4 10^3/uL (0.8-4.8); Mean Corpuscular HGB Conc 31.8 g/dL (30-55); Mean Corpuscular Volume 100.7 fl (85-98); Mean Platelet Volume 9.4 fL (7.4-10.4); Monocytes # 0.5 10^3/uL (0.2-0.9); Monocytes % 2.4 %; Neutrophils # 17.61 10^3/uL (1.8-7.7); Neutrophils % 89.7 %; Nucleated Red Blood Cells % 0 %; Platelet Count 295 10^3/cmm (157-399); Red Blood Count 2.94 10^6/uL (3.85-5.65); Red Cell Distribution Width 14.9 % (12.1-15.1); White Blood Count 19.62 10^3/uL (3.29-11.43)
[2024-09-15 03:55] LABS: Anion Gap 17.4 (5-19); Blood Urea Nitrogen 20 mg/dL (8-23); Calcium 8.7 mg/dL (8.5-10.5); Carbon Dioxide 21 mmol/L (22-29); Chloride 107 mmol/L (98-107); Creatinine Clr Calc Pharmacy 34.3828; Glucose 113 mg/dL (65-115); Osmolality Calculated 297 mOsm/kg (285-295); Potassium 3.4 mmol/L (3.5-5.1); Sodium 142 mmol/L (136-145)
[2024-09-15] MEDS: clopidogrel 75 mg Tablet PO (08:53)
[2024-09-15] MEDS: aspirin 325 mg Tablet PO (08:53)
[2024-09-15] MEDS: potassium chloride ER 20 mEq Tablet PO (08:53)
[2024-09-15] MEDS: sennosides-docusate Tablet 1 TAB PO (08:53)
[2024-09-15] MEDS: midodrine 5 mg TABLET PO ×2 (08:53→17:28)
[2024-09-15] MEDS: pantoprazole 40 mg SDV IVP ×2 (08:54→17:28)
[2024-09-15] MEDS: VANCOMYCIN ADD-Vantage 750 MG in 0.9% NaCl ADD-Vantage 250 ML 250 MG IV (08:59)
[2024-09-15 09:02] LABS: Vancomycin Trough 9.5 ug/mL (10-15)
--- NOTE | 2024-09-15 11:54 | P.PN_ITS ---
<Statement entered by Juan Dugan M.D - 09/15/24 19:18> Patient was evaluated and cared for in conjunction with an advanced practice practitioner.? I personally examined the patient and reviewed the chart and all pertinent data including imaging, telemetry, and laboratory results.? I discussed the patient in detail with the advanced practice practitioner.? Please see? their note for complete progress note, results and agreed upon plan of care for the patient. Patient's condition has improved significantly since yesterday. She has stayed off of the pressors. No chest pain. She is alert and oriented. GENERAL: Patient is alert and oriented HEART: Regular S1 and S2 LUNGS: Diminished air entry. CENTRAL NERVOUS SYSTEM:Non responsive at this time EXTREMITIES: Lower extremities with out edema bilaterally. Assesment and Plan (1) Cardiomyopathy (2) Sinus tachycardia (3) Severe tricuspid regurgitation (4) Elevated troponin (5) Congestive heart failure Significant improvement since yesterday. Continue current medical therapy Share decision regarding medical therapy only Thank you for involving us with care of this patient. We will continue to follow. Please call with questions Subjective 2 Subjective: Patient doing much better today. She is alert and oriented x 4. She denies any chest pain denies shortness of breath. She is off pressors. Medications: Reviewed: Yes Vitals/I&O/Wt Last Vital Signs Temp 98.1 F 09/15/24 00:55 Pulse 74 09/15/24 09:00 Resp 24 H 09/15/24 09:00 BP 103/74 09/15/24 09:00 Pulse Ox 100 09/15/24 09:00 O2 Del Method Nasal Cannula 09/15/24 08:05 O2 Flow Rate 2 09/15/24 08:05 FiO2 40 09/15/24 04:00 09/14/24 09/15/24 09/15/24 22:59 06:59 14:59 Intake Total 164.25 / 965.000 58.75 / 1023.750 490 / 490 Output Total 450 / 450 250 / 700 Balance -285.75 / 515.000 -191.25 / 323.750 490 / 490 Weight last 48 hrs Weight 87 lb 3 oz Weight 92 lb 4.8 oz Physical Exam 2 Narrative: General: Currently on nasal cannula HENMT: normoceophalic Eye: Pupils are pinpoint with minimal to no response Lymphatic: no lymphedema noted Respiratory: Normal respiratory effort, crackles throughout, worse on the right mid lung and base Cardio: No JVD, regular rate, regular rhythm, S1 S2 normal, no murmurs, peripheral pulses 2+ throughout GI: Normal to inspection, nondistended Extremities: Full ROM, normal, normal capillary refill, no cyanosis or edema Neuro: nonresponsive Skin: No rashes or lesions noted, no wounds Urinary Catheter Management: Roche: Cath Placed During This Visit: yes Reason for Continuing Indwelling Catheter: Accurate Measurement of Urinary Output in Critically Ill Patients Urinary Catheter Date of Insertion: 09/14/24 Urinary Catheter Time of Insertion: 10:30 Data 09/15/24 02:48 09/15/24 02:48 A&P Assessment and plan (1) Cardiomyopathy: Qualifiers: Cardiomyopathy type: ischemic Qualified Code(s): I25.5 - Ischemic cardiomyopathy (2) Sinus tachycardia: (3) Severe tricuspid regurgitation: (4) Elevated troponin: (5) Congestive heart failure: Qualifiers: Heart failure type: systolic Heart failure chronicity: chronic Qualified Code(s): I50.22 - Chronic systolic (congestive) heart failure (6) Hypotension: Plan At this time patient is off of Levophed and fully responsive. Alert and oriented x 4. From cardiology standpoint, no further coronary interventions recommended. Will continue medical management. For now we will work on a hold beta-ivanna due to hypotension and patient is now off of Levophed. Will restart once patient has recovered. Family is very understanding of this. Attestations 2 Medical Necessity Statement*: Deferred to primary. Coding Level of Care Code Acute Code for [facility] Diagnoses Ischemic cardiomyopathy I25.5 Cardiomyopathy type: ischemic Sinus tachycardia R00.0 Severe tricuspid regurgitation I07.1 Elevated troponin R79.89 Chronic systolic congestive heart failure I50.22 Heart failure type: systolic Heart failure chronicity: chronic Hypotension I95.9
--- NOTE | 2024-09-15 19:49 | P.PN_ITS ---
Subjective 2 Subjective: She is feeling better today, she is awake and alert. Without chest pain or pressure. Breathing is more comfortable. Vitals/I&O/Wt Last Vital Signs Temp 98.1 F 09/15/24 00:55 Pulse 75 09/15/24 18:15 Resp 24 H 09/15/24 18:15 BP 97/65 09/15/24 18:15 Pulse Ox 95 09/15/24 18:15 O2 Del Method Nasal Cannula 09/15/24 08:05 O2 Flow Rate 2 09/15/24 08:05 FiO2 40 09/15/24 04:00 09/15/24 09/15/24 09/15/24 06:59 14:59 22:59 Intake Total 58.75 / 1023.750 780 / 780 240 / 1020 Output Total 250 / 700 150 / 150 Balance -191.25 / 323.750 780 / 780 90 / 870 Weight last 48 hrs Weight 39.548 kg Weight 41.867 kg Physical Exam 2 Narrative: Accompanied by family. Const: COMMON NORMALS: patient oriented x3 and alert GENERAL APPEARANCE: c ooperative ORIENTATION/CONSCIOUSNESS: Yes awake HENMT: COMMON NORMALS: oropharynx normal Neck/C-Spine: COMMON NORMALS: no JVD Resp: COMMON NORMALS: normal respiratory effort and clear to auscultation bilaterally AUSCULTATION: clear to auscultation bilaterally Cardio: COMMON NORMALS: no JVD, regular rhythm, S1 normal heart sound present, S2 normal heart sound present and No murmurs present (Cardio) RHYTHM: regular rhythm HEART SOUNDS: S1 normal heart sound present and S2 normal heart sound present GI: COMMON NORMALS: Normal to inspection, nondistended, normoactive bowel sounds present, Soft to palpation and non-tender PALPATION: Yes Soft to palpation Extremity: COMMON NORMALS: no joint enlargement and no pedal edema Neuro: COMMON NORMALS: patient oriented x3 and moves all extremities S ENSORIUM/ORIENTATION: Yes alert Skin: COMMON NORMALS: no rashes or lesions noted GENERAL SKIN EXAM: no rashes or lesions noted Urinary Catheter Management: Roche: Cath Placed During This Visit: yes Reason for Continuing Indwelling Catheter: Accurate Measurement of Urinary Output in Critically Ill Patients Urinary Catheter Date of Insertion: 09/14/24 Urinary Catheter Time of Insertion: 10:30 Data 09/15/24 02:48 09/15/24 02:48 A&P Assessment and plan (1) Hypotension: (2) Pulmonary hypertension: (3) Severe tricuspid regurgitation: (4) Elevated troponin: (5) D-dimer, elevated: (6) Pulmonary fibrosis: (7) Pneumonia: (8) COPD with acute exacerbation: (9) DNR (do not resuscitate): (10) Sepsis with acute hypoxic respiratory failure: Plan Sepsis related to right lower lobe pneumonia Shock: Suspected combination of cardiogenic plus possibly septic shock with noted new drop in EF with 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 Today she is doing better. She is awake and alert. Has weaned off pressor. No chest pain or pressure. Heart rates have improved and has converted to sinus rhythm. Oxygenation improving, weaned off BiPAP. Discontinue pressor. May transfer out of ICU. Discussed with cardiology team, consideration given to additional diuretic, although she does have a chronic component of crackles with noted bilateral lower lung fibrosis. At the moment overall appears more euvolemic, will reassess volume status before additional diuretic. Caution so as not to fluid overload. Acute pulmonary edema has resolved. Continue broad-spectrum antibiotic coverage with Zojusta noel, monitor for risk of kidney injury with antibiotic combination. Continue hydrocortisone for now for possible component of adrenal insufficiency. She is on midodrine as well. Blood pressure soft, 88/64 lowest today, continue steroid for now. Monitor for risk of hyperglycemia, hypertension, gastritis, encephalopathy. Reviewed C. difficile, negative, other stool studies pending. Reviewed blood culture, so far negative. Replace hypokalemia. Recheck potassium level. Reviewed magnesium, recheck. Discussed with her family at bedside A-fib with RVR: With good response to heart rates with improvement and converted to sinus rhythm. Continue to monitor. Replace potassium. Recheck potassium magnesium. Treat pneumonia. Support oxygenation. Troponin location: Discussed with cardiology team, reviewed cardiology note. Continue aspirin 225 mg, continue Plavix, Lovenox every 12 for now. Reviewed repeat echocardiogram. Acute on chronic hypoxia: Currently on 3 L, at home uses 2 L at baseline on as- needed basis 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 with improved EF. With decompensated CHF/pulmonary edema as above. Roche placed. 20 mg IV Lasix. Monitor NAYELI. Weights. Cardiac monitoring telemetry. Replace electrolytes, potassium magnesium. Monitor for risk factor deficiency with IV diuretic, reassessment of function. Reassess electrolytes. Monitor telemetry. Reviewed echocardiogram. Abnormal D-dimer with elevated troponin, reviewed CTA chest, no PE Considering low BMI and low creatinine clearance I have consulted pharmacy they recommended 40 mg once daily regimen for therapeutic Lovenox regimen at this point Patient is not endorsing any chest pain, EKG showing sinus tachycardia with PVCs Goals of care discussed with the patient in front of her daughters, she is DNR/DNI We will keep her on GI soft diet Patient was using a walker now bedbound secondary to worsening of fatigue lethargy and hypoxia DNR/DNI Obtain PT evaluation Attestations 2 Medical Necessity Statement*: Continue admission for assessment management after shock, suspected combination cardiogenic, possible septic shock, pneumonia, A-fib with RVR, underlying complex CAD, troponin rise. and High MDM includes amount and/or complexity of data reviewed/ordered [ previous or external records, resulted lab(s)/test(s), ordered lab(s)/test(s) and other healthcare professional discussion] and described risk of complication, morbidity or mortality of management as documented Diagnoses Hypotension I95.9 Pulmonary hypertension I27.20 Severe tricuspid regurgitation I07.1 Elevated troponin R79.89 D-dimer, elevated R79.89 Pulmonary fibrosis J84.10 Pneumonia J18.9 COPD with acute exacerbation J44.1 DNR (do not resuscitate) Z66 Sepsis with acute hypoxic respiratory failure A41.9; R65.20; J96.01
[2024-09-15] MEDS: atorvastatin 40 mg Tablet PO (20:22)
[2024-09-15] MEDS: VANCOMYCIN ADD-Vantage 1,000 MG in 0.9% NaCl ADD-Vantage 250 ML 250 MG IV (20:23)
[2024-09-15] MEDS: acetaminophen 500 mg Tablet PO (20:25)
[2024-09-15] MEDS: LORazepam 0.5 mg Tablet PO (23:08)
[2024-09-15] MEDS: guaiFENesin 100 mg/5 mL UDC 10 mL PO (23:09)
--- NOTE | 2024-09-15 23:13 | PC.NURSE ---
Anxiety: Patient was complaining of anxiety and was unable to rest, was requesting home dose of lorazepam which she takes at night. Dr. Bunn gave telephone orders to restart home dose of 0.5mg lorazepam Q24H PRN for anxiety.
[2024-09-16] VITALS (33 sets, daily range): BP systolic 92–141; BP diastolic 57–85; PULSE 57–113; RESP 8–29; TEMP 36.3–36.9; O2SAT 86–100; BMI 16.5
[2024-09-16] MEDS: enoxaparin 40 mg/0.4 mL Syringe SUBCUT ×2 (01:09→14:32)
[2024-09-16] MEDS: piperacillin-tazobactam 3.375 GM in sodium chloride 0.9% (plus) 50 ML IV ×3 (01:10→21:06)
[2024-09-16] MEDS: hydrocortisone 100 mg/2 mL SDV IVP ×2 (02:24→08:46)
[2024-09-16 05:27] LABS: Basophils % 0.1 %; Hematocrit 27.9 % (36-47); Lymphocytes # 1.4 10^3/uL (0.8-4.8); Lymphocytes % 6.9 %; Mean Corpuscular HGB Conc 31.9 g/dL (30-55); Mean Corpuscular Hemoglobin 31.8 pg (27-33); Mean Corpuscular Volume 99.6 fl (85-98); Mean Platelet Volume 9.8 fL (7.4-10.4); Monocytes # 0.6 10^3/uL (0.2-0.9); Monocytes % 2.7 %; Neutrophils % 89.6 %; Nucleated Red Blood Cells % 0 %; Platelet Count 309 10^3/cmm (157-399); Red Cell Distribution Width 14.9 % (12.1-15.1); White Blood Count 20.41 10^3/uL (3.29-11.43)
[2024-09-16 06:01] LABS: Anion Gap 13.5 (5-19); Blood Urea Nitrogen 32 mg/dL (8-23); Calcium 8.9 mg/dL (8.5-10.5); Carbon Dioxide 22 mmol/L (22-29); Chloride 108 mmol/L (98-107); Creatinine Clr Calc Pharmacy 30.0916; Glucose 157 mg/dL (65-115); Osmolality Calculated 300 mOsm/kg (285-295); Potassium 3.5 mmol/L (3.5-5.1); Sodium 140 mmol/L (136-145)
[2024-09-16] MEDS: aspirin 325 mg Tablet PO (08:46)
[2024-09-16] MEDS: midodrine 5 mg TABLET PO ×2 (08:46→17:26)
[2024-09-16] MEDS: pantoprazole 40 mg SDV IVP ×2 (08:46→17:26)
[2024-09-16] MEDS: clopidogrel 75 mg Tablet PO (08:46)
--- NOTE | 2024-09-16 09:37 | PC.NURSE ---
Provider is notified that patients order still read bedrest, PT is asking for that to be changed so they can work with her. Provider ordered to change to up with assist. Order is updated.
[2024-09-16 09:43] LABS: Ferritin 448 ng/mL (15-150); Folate Level 17.1 ng/mL (4.8-37.3); Iron 36 ug/dL (37-145); Percent Saturation 21.3 % (20-50); Thyroid Stimulating Hormone 1.02 uIU/mL (0.27-4.20); Total Iron Binding Capacity 169 mcg/dl; Unsaturated Iron Binding 133 ug/dL (112-347); Vitamin B12 1151 pg/mL (232-1245)
--- NOTE | 2024-09-16 10:35 | PC.CHAP ---
Pastoral Care Encounter/Spiritual Assessment Type of Contact [] Declined cut in worker visit [] Patient/Family/Request visit [] Outpatient visit [] Follow-up visit [] Physician referral [] Code/Alert [x] Routine visit [] Staff referral [] Actively dying [] Patient sleeping [x] Family support [] [] Out of room [] Palliative care [] [] Receiving care in room [] Pre-surgical visit [] Trauma [] Long length of stay [] ICU visit [] Other: Relational/Emotional Strength [x] Patient feels connected with others/family/visitors/staff [] Distress [] Loneliness/isolation [] Abandonment Spirituality of Patient [x] Person of Dest[place] [] Attends Voodoo of their [place] [x] Believes in Prayer [] Reads Bible or Temple materials [] There are Spiritual issues to be addressed Poultry Feed Supervisor Interventions [x] Prayer [x] Active listening [x] Non-anxious presence [x] Spiritual/emotional support [] Crisis/trauma care [] Spiritual counseling [] Bereavement support [] Provided bereavement packet [] Provided Bible/devotional materials [] Provided toy/stuffed animal, coloring book to patient or family member [] Provided Communion [] Anointing/[place] [] Salvation x] Completed spiritual assessment [] Other: Impact on Illness or Injury [] Angry [] Fearful [] Anxious [] Often cries [] Exhaustion [] Unable to work [] Unable to attend muslim [] Unable to walk/stand [] Unable to read [] Unable to drive [] Unable to eat/drink [] Unable to sleep [] Unable to be with family [] Patient intubated [] Other: Summary Time spent with patient 5 min Pastoral Care Encounter/Spiritual Assessment Type of Contact [] Declined cut in worker visit [] Patient/Family/Request visit [] Outpatient visit [] Follow-up visit [] Physician referral [] Code/Alert [] Routine visit [] Staff referral [] Actively dying [] Patient sleeping [] Family support [] [] Out of room [] Palliative care [] [] Receiving care in room [] Pre-surgical visit [] Trauma [] Long length of stay [] ICU visit [] Other: Relational/Emotional Strength [] Patient feels connected with others/family/visitors/staff [] Distress [] Loneliness/isolation [] Abandonment Spirituality of Patient [] Person of [place] [] Attends Voodoo of their [place] [] Believes in Prayer [] Reads Bible or Temple materials [] There are Spiritual issues to be addressed Poultry Feed Supervisor Interventions [] Prayer [] Active listening [] Non-anxious presence [] Spiritual/emotional support [] Crisis/trauma care [] Spiritual counseling [] Bereavement support [] Provided bereavement packet [] Provided Bible/devotional materials [] Provided toy/stuffed animal, coloring book to patient or family member [] Provided Communion [] Anointing/[place] [] Salvation [] Completed spiritual assessment [] Other: Impact on Illness or Injury [] Angry [] Fearful [] Anxious [] Often cries [] Exhaustion [] Unable to work [] Unable to attend muslim [] Unable to walk/stand [] Unable to read [] Unable to drive [] Unable to eat/drink [] Unable to sleep [] Unable to be with family [] Patient intubated [] Other: Summary Time spent with patient
--- NOTE | 2024-09-16 10:50 | P.PN_ITS ---
<Statement entered by Juan Dugan M.D - 09/16/24 16:51> Patient was evaluated and cared for in conjunction with an advanced practice practitioner.? I personally examined the patient and reviewed the chart and all pertinent data including imaging, telemetry, and laboratory results.? I discussed the patient in detail with the advanced practice practitioner.? Please see? their note for complete progress note, results and agreed upon plan of care for the patient. Patient is feeling better. No chest pain. GENERAL: Patient is alert and oriented HEART: Regular S1 and S2 LUNGS: Diminished air entry. EXTREMITIES: Lower extremities with out edema bilaterally. Assesment and Plan (1) Cardiomyopathy (2) Sinus tachycardia (3) Severe tricuspid regurgitation (4) Elevated troponin (5) Congestive heart failure Patient is stable from cardiac standpoint. Can resume beta blockers if blood pressure tolerates Continue tele monitoring Thank you for involving us with care of this patient. We will continue to follow. Please call with questions. Subjective 2 Subjective: Patient doing okay from a heart standpoint. She does have some anemia today. Will need to get up and work with physical therapy as well. Medications: Reviewed: Yes Vitals/I&O/Wt Last Vital Signs Temp 97.5 F L 09/16/24 08:00 Pulse 75 09/16/24 08:05 Resp 16 09/16/24 08:05 BP 141/69 09/16/24 08:00 Pulse Ox 93 09/16/24 08:05 O2 Del Method Nasal Cannula 09/16/24 08:05 O2 Flow Rate 3 09/16/24 08:05 FiO2 40 09/16/24 06:15 09/15/24 09/16/24 09/16/24 22:59 06:59 14:59 Intake Total 540 / 1320 110 / 110 Output Total 150 / 150 100 / 250 Balance 390 / 1170 -100 / 1070 110 / 110 Weight last 48 hrs Weight 90 lb 5 oz Weight 87 lb 3 oz Physical Exam 2 Narrative: General: Currently on nasal cannula HENMT: normoceophalic Eye: PERRL Lymphatic: no lymphedema noted Respiratory: Normal respiratory effort, crackles at the right mid lung, improved and clear on the left Cardio: No JVD, regular rate, regular rhythm, S1 S2 normal, no murmurs, peripheral pulses 2+ throughout GI: Normal to inspection, nondistended Extremities: Full ROM, normal, normal capillary refill, no cyanosis or edema Neuro: nonresponsive Skin: No rashes or lesions noted, no wounds Urinary Catheter Management: Roche: Cath Placed During This Visit: yes Reason for Continuing Indwelling Catheter: Accurate Measurement of Urinary Output in Critically Ill Patients Urinary Catheter Date of Insertion: 09/14/24 Urinary Catheter Time of Insertion: 10:30 Data 09/16/24 04:25 09/16/24 04:25 A&P Assessment and plan (1) Cardiomyopathy: Qualifiers: Cardiomyopathy type: ischemic Qualified Code(s): I25.5 - Ischemic cardiomyopathy (2) Sinus tachycardia: (3) Severe tricuspid regurgitation: (4) Elevated troponin: (5) Congestive heart failure: Qualifiers: Heart failure type: systolic Heart failure chronicity: chronic Qualified Code(s): I50.22 - Chronic systolic (congestive) heart failure (6) Hypotension: Plan At this time patient is off of Levophed and fully responsive. Alert and oriented x 4. From cardiology standpoint, no further coronary interventions recommended. Will continue medical management. May consider adding back beta ivanna tomorrow. Will restart once patient has recovered. Discussed patient's low heart function with patient and family. They do not want a life vest, as she does not want an ICD. This is reasonable. Family is very understanding of this. Attestations 2 Medical Necessity Statement*: Deferred to primary. Coding Level of Care Code Acute Code for [facility] Fwd Diagnoses Ischemic cardiomyopathy I25.5 Cardiomyopathy type: ischemic Sinus tachycardia R00.0 Severe tricuspid regurgitation I07.1 Elevated troponin R79.89 Chronic systolic congestive heart failure I50.22 Heart failure type: systolic Heart failure chronicity: chronic Hypotension I95.9
--- NOTE | 2024-09-16 11:39 | PC.NURSE ---
provider okay'd to remove shields catheter.
[2024-09-16] MEDS: acetaminophen 500 mg Tablet PO ×2 (12:41→21:05)
[2024-09-16] MEDS: hydrocortisone 100 mg/2 mL SDV 50 MG IVP ×2 (14:31→21:06)
[2024-09-16] MEDS: VANCOMYCIN ADD-Vantage 1,000 MG in 0.9% NaCl ADD-Vantage 250 ML 250 MG IV (14:32)
--- NOTE | 2024-09-16 15:29 | P.PN_ITS ---
Subjective 2 Subjective: She has overall been feeling better. However, has not gotten up much and feels has been somewhat bedbound here in the last several days. Would like to try to see what she is able to do. Vitals/I&O/Wt Last Vital Signs Temp 97.5 F L 09/16/24 12:00 Pulse 76 09/16/24 12:00 Resp 28 H 09/16/24 12:00 BP 92/57 09/16/24 12:00 Pulse Ox 93 09/16/24 12:00 O2 Del Method Nasal Cannula 09/16/24 12:00 O2 Flow Rate 3 09/16/24 12:00 FiO2 40 09/16/24 06:15 09/16/24 09/16/24 09/16/24 06:59 14:59 22:59 Intake Total 110 / 110 Output Total 100 / 250 Balance -100 / 1070 110 / 110 Weight last 48 hrs Weight 40.965 kg Weight 39.548 kg Physical Exam 2 Narrative: Accompanied by family. Const: COMMON NORMALS: patient oriented x3 and alert GENERAL APPEARANCE: c ooperative ORIENTATION/CONSCIOUSNESS: Yes awake HENMT: COMMON NORMALS: oropharynx normal Neck/C-Spine: COMMON NORMALS: no JVD Resp: COMMON NORMALS: normal respiratory effort and clear to auscultation bilaterally AUSCULTATION: clear to auscultation bilaterally Cardio: COMMON NORMALS: no JVD, regular rhythm, S1 normal heart sound present, S2 normal heart sound present and No murmurs present (Cardio) RHYTHM: regular rhythm HEART SOUNDS: S1 normal heart sound present and S2 normal heart sound present GI: COMMON NORMALS: Normal to inspection, nondistended, normoactive bowel sounds present, Soft to palpation and non-tender PALPATION: Yes Soft to palpation Extremity: COMMON NORMALS: no joint enlargement and no pedal edema Neuro: COMMON NORMALS: patient oriented x3 and moves all extremities S ENSORIUM/ORIENTATION: Yes alert Skin: COMMON NORMALS: no rashes or lesions noted GENERAL SKIN EXAM: no rashes or lesions noted Urinary Catheter Management: Roche: Cath Placed During This Visit: yes Reason for Continuing Indwelling Catheter: Accurate Measurement of Urinary Output in Critically Ill Patients Urinary Catheter Date of Insertion: 09/14/24 Urinary Catheter Time of Insertion: 10:30 Data 09/16/24 04:25 09/16/24 04:25 Micro: Microbiology 09/11/24 13:23 Blood Culture - Final Blood NO GROWTH AFTER 5 DAYS 09/11/24 13:21 Blood Culture - Final Blood NO GROWTH AFTER 5 DAYS A&P Assessment and plan (1) Hypotension: (2) Pulmonary hypertension: (3) Severe tricuspid regurgitation: (4) Elevated troponin: (5) D-dimer, elevated: (6) Pulmonary fibrosis: (7) Pneumonia: (8) COPD with acute exacerbation: (9) DNR (do not resuscitate): (10) Sepsis with acute hypoxic respiratory failure: Plan Sepsis related to right lower lobe pneumonia. Shock resolved. Blood pressure reviewed today as high as 141/69. Hydrocortisone dosing to reduce to 50 mg every 6 hours. Monitor blood pressure. Currently at 92/57, hold off further reduction for now. Reassess. Monitor for risk of hyperglycemia, gastritis, encephalopathy with IV steroid. Reviewed glucose. Reviewed cardiology note, beta-ivanna resumption is considered. Pending reassessment of blood pressures. LifeVest was considered. 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 Today she is doing better. She is awake and alert. Has weaned off pressor. No chest pain or pressure. Heart rates have improved and has converted to sinus rhythm. Oxygenation improving, weaned off BiPAP. Caution so as not to fluid overload. Acute pulmonary edema has resolved. Continue broad-spectrum antibiotic coverage with Zosyn, vanc, monitor for risk of kidney injury with antibiotic combination. Continue hydrocortisone for now for possible component of adrenal insufficiency. She is on midodrine as well. Reviewed C. difficile, negative, other stool studies pending. Reviewed blood culture, so far negative. Discussed with her family at bedside Anemia: Worsening anemia, hemoglobin down to 8.9. Check Hemoccult. Check iron studies, B12, folic acid, TSH. Continues on anticoagulation with suspected mural thrombus. Monitor for risk of bleeding. Reassess blood counts. A-fib with RVR: Resumption of metoprolol to be considered, reassess blood pressures with taper of stress dose steroid. With good response to heart rates with improvement and converted to sinus rhythm. Continue to monitor. Replace potassium. Recheck potassium magnesium. Treat pneumonia. Support oxygenation. Troponin elevation: Discussed with cardiology team, reviewed cardiology note. Continue aspirin 325 mg, continue Plavix, Lovenox every 12 for now. Reviewed repeat echocardiogram. Concern of possible mural thrombus. Acute on chronic hypoxia: Currently on 3 L, at home uses 2 L at baseline on as- needed basis Reduced ejection fraction heart failure with cardiomyopathy with improved EF. Concern of possible neuro thrombus on TTE. On Lovenox. With decompensated CHF/pulmonary edema as above. Roche placed. 20 mg IV Lasix. Monitor NAYELI. Weights. Cardiac monitoring telemetry. Replace electrolytes, potassium magnesium. Monitor for risk factor deficiency with IV diuretic, reassessment of function. Reassess electrolytes. Monitor telemetry. Reviewed echocardiogram. Abnormal D-dimer with elevated troponin, reviewed CTA chest, no PE Considering low BMI and low creatinine clearance I have consulted pharmacy they recommended 40 mg once daily regimen for therapeutic Lovenox regimen at this point Patient is not endorsing any chest pain, EKG showing sinus tachycardia with PVCs Goals of care discussed with the patient in front of her daughters, she is DNR/DNI We will keep her on GI soft diet Patient was using a walker now bedbound secondary to worsening of fatigue lethargy and hypoxia DNR/DNI Obtain PT evaluation. Discussed with case management. Attestations 2 Medical Necessity Statement*: Continue admission for assessment management after shock, weaning of stress dose steroid, suspected combination cardiogenic, possible septic shock, pneumonia, underlying complex CAD, troponin rise. and High MDM includes amount and/or complexity of data reviewed/ordered [ previous or external records, resulted lab(s)/test(s), ordered lab(s)/test(s) and other healthcare professional discussion] and described risk of complication, morbidity or mortality of management as documented Diagnoses Hypotension I95.9 Pulmonary hypertension I27.20 Severe tricuspid regurgitation I07.1 Elevated troponin R79.89 D-dimer, elevated R79.89 Pulmonary fibrosis J84.10 Pneumonia J18.9 COPD with acute exacerbation J44.1 DNR (do not resuscitate) Z66 Sepsis with acute hypoxic respiratory failure A41.9; R65.20; J96.01
[2024-09-16] MEDS: atorvastatin 40 mg Tablet PO (21:05)
[2024-09-16] MEDS: LORazepam 0.5 mg Tablet PO (21:06)
[2024-09-16] MEDS: morphine 4 mg/mL SDV 1 mL 2 MG IVP (23:55)
[2024-09-17] VITALS: BP 120/78; PULSE 97; RESP 32; TEMP 37; O2SAT 95
--- NOTE | 2024-09-17 00:38 | PC.NURSE ---
Patient complaining of 8/10 pain, PRN Tylenol administered. Pain level still at an 8 after one hour. Notified Dr. Bunn, given orders for Morphine 2mg IVP Q6, as needed for pain.
[2024-09-17] MEDS: enoxaparin 40 mg/0.4 mL Syringe SUBCUT (02:06)
[2024-09-17] MEDS: hydrocortisone 100 mg/2 mL SDV 50 MG IVP ×2 (02:06→08:59)
[2024-09-17] MEDS: acetaminophen 500 mg Tablet PO ×2 (02:57→10:37)
[2024-09-17] MEDS: piperacillin-tazobactam 3.375 GM in sodium chloride 0.9% (plus) 50 ML IV (02:58)
[2024-09-17 04:00] VITALS: BP 124/86; PULSE 89; RESP 23; O2SAT 97
[2024-09-17 05:34] LABS: Basophils % 0.1 %; Hematocrit 30.4 % (36-47); Lymphocytes # 1.2 10^3/uL (0.8-4.8); Lymphocytes % 5.4 %; Mean Corpuscular HGB Conc 32.2 g/dL (30-55); Mean Corpuscular Hemoglobin 32.3 pg (27-33); Mean Corpuscular Volume 100.3 fl (85-98); Mean Platelet Volume 9.5 fL (7.4-10.4); Monocytes # 0.5 10^3/uL (0.2-0.9); Monocytes % 2.2 %; Neutrophils # 20.78 10^3/uL (1.8-7.7); Neutrophils % 91.3 %; Nucleated Red Blood Cells % 0 %; Platelet Count 345 10^3/cmm (157-399); Red Blood Count 3.03 10^6/uL (3.85-5.65); Red Cell Distribution Width 14.9 % (12.1-15.1); White Blood Count 22.79 10^3/uL (3.29-11.43)
[2024-09-17 06:05] LABS: Blood Urea Nitrogen 29 mg/dL (8-23); Calcium 9.4 mg/dL (8.5-10.5); Carbon Dioxide 19 mmol/L (22-29); Chloride 108 mmol/L (98-107); Creatinine Clr Calc Pharmacy 32.3479; Glucose 161 mg/dL (65-115); Osmolality Calculated 301 mOsm/kg (285-295); Sodium 141 mmol/L (136-145)
[2024-09-17 07:57] VITALS: PULSE 98; RESP 18; O2SAT 99
[2024-09-17 08:00] VITALS: BP 120/83; PULSE 90; RESP 24; TEMP 36.4; O2SAT 98
[2024-09-17] MEDS: clopidogrel 75 mg Tablet PO (08:59)
[2024-09-17] MEDS: aspirin 325 mg Tablet PO (08:59)
[2024-09-17] MEDS: midodrine 5 mg TABLET PO (08:59)
[2024-09-17] MEDS: pantoprazole 40 mg SDV IVP (08:59)
[2024-09-17] MEDS: VANCOMYCIN ADD-Vantage 1,000 MG in 0.9% NaCl ADD-Vantage 250 ML 250 MG IV (09:00)
--- NOTE | 2024-09-17 10:09 | P.DS_ITS ---
Discharge Providers Date of Admission: 09/11/24 17:24 Date of Discharge: September 17, 2024 Attending Provider at Admission: Rachelle Chamorro MD Attending Provider at Discharge: Bharath Cabral Primary Care Provider: Eber Albarran MD Diagnoses at Discharge Discharge Diagnosis (1) Hypotension: Status: Acute (2) Pulmonary hypertension: Status: Acute (3) Severe tricuspid regurgitation: Status: Acute (4) Elevated troponin: Status: Acute (5) D-dimer, elevated: Status: Acute (6) Pulmonary fibrosis: Status: Acute (7) Pneumonia: Status: Acute (8) COPD with acute exacerbation: Status: Acute (9) DNR (do not resuscitate): Status: Acute (10) Sepsis with acute hypoxic respiratory failure: Status: Acute Reason for Visit Reason for Visit: sob Hospital Course Hospital Course Very pleasant 84-year-old lady was admitted with sepsis, right lower lobe pneumo rina, superimposed on 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, was treated with antibiotic, required pressor on admission, oxygen support with high requirement than usual, with history of preserved ejection fraction heart failure with cardiomyopathy, showing improvement, with no PE on CTA, with fibrotic changes in the lower lungs, with chronic crackles, transferred out of intensive care unit, however, following day with decompensation, with development of shock, suspected multifactorial with adrenal insufficiency, as well as cardiogenic on repeat echocardiogram finding of worsened cardiomyopathy, ejection fraction decreased severely, LV apical thrombus could not be ruled out. Was assessed by cardiology with known complex coronary artery disease. Transiently again on pressor support. On further goals of care discussion preference to avoid aggressive interventions, especially since any intervention would be high risk given the anatomy of her disease. She was treated with stress dose steroids. Required transient BiPAP support due to acute pulmonary edema. Initially metoprolol for A-fib, but had to be held with shock, magnesium from potassium replacement and metoprolol given for A-fib. Her hemodynamics stabilized and she converted to sinus rhythm. Anemia was followed during hospitalization. Not found to have iron deficiency. Hemoccult negative. At discharge as per discussion with cardiology continuing on Plavix and Eliquis. Her condition overall improved. She was assessed by physical therapy and did well with recommended home exercise program. At discharge prescription provided for Levaquin to complete antibiotic course for pneumonia as well as prednisone taper after which she is to resume her usual prednisone dose. Resumed on oral Lasix. Entresto stopped for now until reassessment of blood pressures on follow-up. She is asked to follow-up with primary provider as well as cardiology for reassessment. Physical Exam Narrative: Accompanied by family. Sitting up in bed. Comfortable, pleasant, conversant. Const: COMMON NORMALS: patient oriented x3 and alert GENERAL APPEARANCE: cooperative ORIENTATION/CONSCIOUSNESS: Yes awake HENMT: COMMON NORMALS: oropharynx normal Neck/C-Spine: COMMON NORMALS: no JVD Resp: COMMON NORMALS: normal respiratory effort and clear to auscultation bilaterally AUSCULTATION: clear to auscultation bilaterally Cardio: COMMON NORMALS: no JVD, regular rhythm, S1 normal heart sound present, S2 normal heart sound present and No murmurs present (Cardio) RHYTHM: regular rhythm HEART SOUNDS: S1 normal heart sound present and S2 normal heart sound present GI: COMMON NORMALS: Normal to inspection, nondistended, normoactive bowel sounds present, Soft to palpation and non-tender PALPATION: Yes Soft to palpation Extremity: COMMON NORMALS: no joint enlargement and no pedal edema Neuro: COMMON NORMALS: patient oriented x3 and moves all extremities SENSORIUM/ORIENTATION: Yes alert Skin: COMMON NORMALS: no rashes or lesions noted GENERAL SKIN EXAM: no rashes or lesions noted Urinary Catheter Management: Roche: Cath Placed During This Visit: yes Reason for Continuing Indwelling Catheter: Accurate Measurement of Urinary Output in Critically Ill Patients Urinary Catheter Date of Insertion: 09/14/24 Urinary Catheter Time of Insertion: 10:30 Discharge Data Studies Completed and Pending Completed Studies During Hospitalization Category Date Time Status CT chest wo con [id number] Stat Cat Scan 09/11/24 14:10 Completed CTA PE [CT angio chest PE protcl 17091] Stat Cat Scan 09/11/24 19:22 Completed CXRP [XR chest 1V portable [id number]] Routine Exams 09/14/24 11:38 Completed XR chest 1V portable [id number] Stat Exams 09/11/24 12:52 Completed US echo limited with contrast [CV. echo lmt w/w contras Ultrasound 09/14/24 13:33 Completed 22209] Routine Pending at discharge Category Date Time Status Sputum Culture and Gram Stain Stat Lab 09/12/24 13:15 Uncollected Stool Culture - Enteric [Salmonella / Shigella / Campy] Lab 09/14/24 09:00 Received Routine Vancomycin Trough Timed Lab 09/18/24 20:00 Ordered Radiology Impressions Chest CT 09/11/24 14:10 IMPRESSION: Severe chronic interstitial fibrosis with superimposed acute right basilar pneumonia ADDENDUM: 09/11/24 1516 There has been worsening of right basilar consolidation since 06/25/2023. Chest CTA 09/11/24 19:22 IMPRESSION: 1. Negative for pulmonary embolus. 2. Cardiomegaly. 3. Emphysematous changes. 4. Bilateral lower lobe iolmq-xokavks-utgn-left airspace infiltrates. 5. Bilateral honeycombing and interstitial fibrotic changes. 6. T7 vertebral body chronic compression fracture with mild retropulsion of bony fragments and minimal spinal canal narrowing. 7. T12 vertebroplasty changes. 8. Scattered prominent mediastinal lymph nodes measuring up to 11 mm short axis. 9. Trace right pleural effusion. 10. Aortic atherosclerotic calcifications. Chest X-Ray 09/14/24 11:38 IMPRESSION: 1. Satisfactory position right-sided PICC line. 2. Diffuse bilateral reticular nodular opacifications, greatest on the RIGHT. Combination of pneumonia, edema and chronic interstitial lung disease. Laboratory Results WBC 22.79 10^3/uL (3.29-11.43) H 09/17/24 05:23 RBC 3.03 10^6/uL (3.85-5.65) L 09/17/24 05:23 Hgb 9.80 g/dL (11.27-16.99) L 09/17/24 05:23 Hct 30.4 % (36-47) L 09/17/24 05:23 MCV 100.3 fl (85-98) H 09/17/24 05:23 MCH 32.3 pg (27-33) 09/17/24 05:23 MCHC 32.2 g/dL (30-55) 09/17/24 05:23 RDW 14.9 % (12.1-15.1) 09/17/24 05:23 Plt Count 345 10^3/cmm (157-399) 09/17/24 05:23 MPV 9.5 fL (7.4-10.4) 09/17/24 05:23 Neut % (Auto) 91.3 % 09/17/24 05:23 Lymph % (Auto) 5.4 % 09/17/24 05:23 [place] % (Auto) 2.2 % 09/17/24 05:23 Eos % (Auto) 0.0 % 09/17/24 05:23 Baso % (Auto) 0.1 % 09/17/24 05:23 Neut # (Auto) 20.78 10^3/uL (1.8-7.7) H 09/17/24 05:23 Lymph # (Auto) 1.2 10^3/uL (0.8-4.8) 09/17/24 05:23 [place] # (Auto) 0.5 10^3/uL (0.2-0.9) 09/17/24 05:23 Eos # (Auto) 0.0 10^3/uL (0.0-0.8) 09/17/24 05:23 Baso # (Auto) 0.0 10^3/uL (0.0-0.1) 09/17/24 05:23 Nucleated RBC % (auto) 0 % 09/17/24 05:23 Nucleated RBCs # 0.0 /100WBC 09/17/24 05:23 D-Dimer 4.94 ug/mLFEU (0-0.59) H 09/11/24 13:21 Specimen Type Arterial 09/11/24 13:00 Sample Site Brachial, left 09/11/24 13:00 ABG pH 7.47 (7.35-7.45) H 09/11/24 13:00 ABG pCO2 31.8 mmHg (35-45) L 09/11/24 13:00 ABG pO2 75.4 mmHg (80.0-100.0) L 09/11/24 13:00 ABG PO2/FiO2 Ratio 235 09/11/24 13:00 ABG HCO3 23.1 mmol/L (22-26) 09/11/24 13:00 ABG O2 Saturation 96.6 09/11/24 13:00 ABG Base Excess -0.1 mmol/L (-2.0-2.0) 09/11/24 13:00 Alejo Test N/a 09/11/24 13:00 A-a O2 Gradient 14.9 mmHg (5-10) H 09/11/24 13:00 Hematocrit 34.7 % (37-47) L 09/11/24 13:00 Hgb O2 Saturation 95.2 % (95-100) 09/11/24 13:00 Carboxyhemoglobin 1.3 %THgb (0.4-20.1) 09/11/24 13:00 Methemoglobin 0.1 % (0.4-1.5) L 09/11/24 13:00 Total Hemoglobin 11.3 g/dL (12-16) L 09/11/24 13:00 Sodium 135.0 mmol/L (131-143) 09/11/24 13:00 Potassium 3.5 mmol/L (3.5-5.0) 09/11/24 13:00 Glucose 111.0 mg/dL (70-115) 09/11/24 13:00 Ionized Calcium 1.3 mmol/L (1.1-1.4) 09/11/24 13:00 O2 Delivery Device Nc 09/11/24 13:00 O2 Liters/Min 3.0 % 09/11/24 13:00 FiO2 32.0 % 09/11/24 13:00 Director Of People ID Amh 09/11/24 13:00 Sodium 141 mmol/L (136-145) 09/17/24 05:23 Potassium 3.0 mmol/L (3.5-5.1) L 09/17/24 05:23 Chloride 108 mmol/L (98-107) H 09/17/24 05:23 Carbon Dioxide 19 mmol/L (22-29) L 09/17/24 05:23 Anion Gap 17.0 (5-19) 09/17/24 05:23 BUN 29 mg/dL (8-23) H 09/17/24 05:23 Creatinine 1.0 mg/dL (0.5-0.9) H 09/17/24 05:23 GFR Calculation Not Reportable 09/17/24 05:23 Glucose 161 mg/dL (65-115) H 09/17/24 05:23 Calculated Osmolality 301 mOsm/kg (285-295) H 09/17/24 05:23 Lactic Acid 1.7 mmol/L (0.5-2.2) 09/11/24 13:21 Lactate 2.3 mmol/L (0.5-2.2) H 09/11/24 20:15 Calcium 9.4 mg/dL (8.5-10.5) 09/17/24 05:23 Phosphorus 3.0 mg/dL (2.5-4.5) 09/12/24 03:18 Magnesium 2.0 mg/dL (1.7-2.3) 09/15/24 02:48 Iron 36 ug/dL (37-145) L 09/16/24 04:25 TIBC 169 mcg/dl 09/16/24 04:25 % Saturation 21.3 % (20-50) 09/16/24 04:25 Unsat Iron Binding 133 ug/dL (112-347) 09/16/24 04:25 Ferritin 448 ng/mL (15-150) H 09/16/24 04:25 Total Bilirubin 0.3 mg/dL (0.15-1.2) 09/13/24 04:38 AST 36 U/L (0-32) H 09/13/24 04:38 ALT 16 U/L (0-33) 09/13/24 04:38 Alkaline Phosphatase 46 U/L (35-105) 09/13/24 04:38 Troponin T Baseline 242 ng/L (0-10) H* 09/14/24 10:42 Troponin T 120 Minute 460.5 ng/L (0-10) H 09/14/24 12:49 Delta Troponin T 218.5 ABS# (0-10) H* 09/14/24 12:49 Troponin T Hi Sens 6Hr 464.7 ng/L (0-10) H 09/14/24 16:26 Troponin T Hi Sens 6Hr Delta 222.7 ng/L (0-12) H* 09/14/24 16:26 C-Reactive Protein 154.4 mg/L (0.0-4.9) H 09/12/24 03:18 NT-Pro-B Natriuret Pep 3929 pg/mL (0-450) H 09/11/24 13:21 Total Protein 5.7 g/dL (6.6-8.7) L 09/13/24 04:38 Albumin 2.3 g/dL (3.5-5.2) L 09/13/24 04:38 Globulin 3.4 g/dL (1.3-4.6) 09/13/24 04:38 Vitamin B12 1151 pg/mL (232-1245) 09/16/24 04:25 Folate 17.1 ng/mL (4.8-37.3) 09/16/24 04:25 Procalcitonin 0.31 ng/mL (0-0.5) 09/12/24 03:18 TSH 1.02 uIU/mL (0.27-4.20) 09/16/24 04:25 Urine Color Yellow (Yellow) 09/14/24 10:30 Urine Appearance Cloudy (CLEAR) A 09/14/24 10:30 Urine pH 5.5 (5-7) 09/14/24 10:30 Ur Specific [place] 1.028 (1.005-1.030) 09/14/24 10:30 Urine Protein 1+ (Negative) A 09/14/24 10:30 Urine Glucose (UA) Negative (Normal) 09/14/24 10:30 Urine Ketones Negative (Negative) 09/14/24 10:30 Urine Blood Negative (Negative) 09/14/24 10:30 Urine Nitrate Negative (Negative) 09/14/24 10:30 Urine Bilirubin Negative (Negative) 09/14/24 10:30 Urine Urobilinogen 0.2 mg/dL (Negative) 09/14/24 10:30 Ur Leukocyte Esterase Trace (Negative) A 09/14/24 10:30 Urine RBC 6-10 /hpf (0-2) 09/14/24 10:30 Urine WBC 11-20 /hpf (0-5) H 09/14/24 10:30 Ur Squamous Epith Cells 0-5 /hpf (0-5) 09/14/24 10:30 Calcium Oxalate Crystal 25-40 /hpf H 09/14/24 10:30 Uric Acid Crystals 0-4 /hpf 09/14/24 10:30 Amorphous Sediment Trace /hpf 09/14/24 10:30 Urine Bacteria None seen /hpf (NONE) 09/14/24 10:30 Hyaline Casts 9.91 /lpf 09/14/24 10:30 Fine Granular Casts 5-10 /lpf H 09/14/24 10:30 Vancomycin Trough 9.5 ug/mL (10-15) L 09/15/24 08:40 Adenovirus (PCR) Not detected (NOT DETECT) 09/14/24 09:35 C. pneumoniae DNA (PCR) Not detected (NOT DETECT) 09/14/24 09:35 C. difficile (PCR) Negative (Negative) 09/14/24 09:00 Coronavirus (PCR) Negative (Negative) 09/11/24 13:09 Coronavirus 229E (PCR) Not detected (NOT DETECT) 09/14/24 09:35 Human Metapneumovir PCR Not detected (NOT DETECT) 09/14/24 09:35 Influenza A (H1) PCR Not detected (NOT DETECT) 09/14/24 09:35 Influenza A (PCR) Negative (Negative) 09/11/24 13:09 Influ A (H1/09) PCR Not detected (NOT DETECT) 09/14/24 09:35 Influenza A (H3) PCR Not detected (NOT DETECT) 09/14/24 09:35 Influenza Type A (PCR) Not detected (NOT DETECT) 09/14/24 09:35 Influenza Type B (PCR) Not detected (NOT DETECT) 09/14/24 09:35 M. pneumoniae (PCR) Not detected (NOT DETECT) 09/14/24 09:35 Parainfluenza 1 (PCR) Not detected (NOT DETECT) 09/14/24 09:35 Parainfluenza 2 (PCR) Not detected (NOT DETECT) 09/14/24 09:35 Parainfluenza 3 (PCR) Not detected (NOT DETECT) 09/14/24 09:35 Parainfluenza 4 (PCR) Not detected (NOT DETECT) 09/14/24 09:35 RSV (PCR) Negative (Negative) 09/11/24 13:09 RSV Type A (PCR) Not detected (NOT DETECT) 09/14/24 09:35 RSV Type B (PCR) Not detected (NOT DETECT) 09/14/24 09:35 Entero/Rhino (PCR) Not detected (NOT DETECT) 09/14/24 09:35 SARS-CoV-2 (PCR) Not detected (NOT DETECT) 09/14/24 09:35 Vitals Last Vital Signs Temp 97.6 F 09/17/24 08:00 Pulse 90 09/17/24 08:00 Resp 24 H 09/17/24 08:00 BP 120/83 09/17/24 08:00 Pulse Ox 98 09/17/24 08:00 O2 Del Method Nasal Cannula 09/17/24 08:00 O2 Flow Rate 3 09/17/24 08:00 FiO2 40 09/16/24 06:15 Discharge Plan Discharge Patient Disposition: Home Condition: Stable Prescriptions: New levofloxacin 750 mg tablet 750 mg PO DAILY 5 Days Qty: 5 0RF Eliquis DVT-PE Treat 30D Start 5 mg (74 tabs) tablets,dose pack 5 mg PO BID Qty: 74 0RF Continued (DME) Acapella See Rx Instructions .Route .MEDSUPPLY Qty: 1 0RF Rx Instructions: As directed tiotropium bromide [Spiriva with HandiHaler] 18 mcg capsule, w/inhalation device 1 cap inhalation DAILY Qty: 60 6RF Rx Instructions: puncture 1 cap using device; one dose = 2 inhalations atorvastatin 40 mg tablet 40 mg PO BEDTIME 30 Days Qty: 30 1RF clopidogrel [Plavix] 75 mg tablet 75 mg PO DAILY 30 Days Qty: 30 3RF furosemide 20 mg tablet 20 mg PO DAILY Qty: 90 3RF Hold Instructions: Resume on 10/23/23. sennosides-docusate sodium [Stool Softener-Laxative] 8.6-50 mg Tablet 1 tab PO DAILY Qty: 10 0RF tramadol 50 mg tablet 50 mg PO Q8H PRN (Reason: Pain) Qty: 20 0RF lorazepam 1 mg tablet 0.5 - 1 mg PO DAILY PRN (Reason: Anxiety) nitroglycerin [Nitrostat] 0.4 mg Tablet, Sublingual 0.4 mg SUBLINGUAL Q5M PRN (Reason: Chest Pain) Rx Instructions: do not exceed 3 doses per episode prednisone 10 mg Tablet 10 mg PO DAILY Qty: 30 0RF Rx Instructions: take 40mg AM, 20pm 2 days, then 20mg AM 10mg PM 2 days, then resume 10mg daily Discontinued Entresto 24-26 mg tablet 0.5 tab PO BID Qty: 30 3RF Rx Instructions: Take 1/2 tab twice daily Discharge Orders: Discharge Order (Routine); Ordered 09/17/24 Ordered By: Bharath Cabral Referrals: Bethanie Brito NP [Nurse Practitioner] - 10/12/24 1:30 pm Juan Dugan M.D [Physician] - 11/02/24 2:00 pm Eber Albarran MD [Primary Care Provider] - 4-7 days (PCP will contact patient to schedule follow up) Discharge Diet: Cardiac Discharge Activity: As per PT/OT instructions Patient Instructions: COPD, Levofloxacin (By mouth), Apixaban (By mouth), Sepsis (DC), Chronic Hypertension (DC), High Troponin Levels (ED) Activity Restrictions/Additional Instructions: Please follow-up with your primary provider as well as with cardiology team with regards to congestive heart failure and weakness of your heart. Follow-up with them also for reassessment of atrial fibrillation/irregular heartbeat. Complete antibiotic course for pneumonia and follow-up with your primary provider for reassessment for recovery. Please take 40 mg of prednisone in the morning and 20 in the evening for 2 days, then decrease prednisone to 20 mg prednisone in the morning and 10 mg in the evening for another 2 days, then decrease down to 10 mg daily. Have your primary doctor reassess anemia. You are continued on Eliquis anticoagulation due to concern for blood clot inside the left ventricle as well as to reduce stroke risk with atrial fibrillation as well as Limit fluid intake to no more than 1500 mL/day. Seek medical attention in case of any worsening or new concerning symptoms. Discharge Attestations Time Spent in Discharge Care*: greater than 30 min Status at Discharge: Cognitive status at discharge: cognitively intact , Behavioral status at discharge: cooperative , Quality Metrics Clinical Quality Measures [ Acute Myocardial Infaction { Clinical Trial Participant: No; Contraindication to aspirin: None; Aspirin prescribed; Contraindication to statin: None; Statin prescribed; Contraindication to PCI: Procedure not wanted;}] Coding Level of Care Code 54434 Total time (in minutes) for Discharge: 50 Diagnoses Hypotension I95.9 Pulmonary hypertension I27.20 Severe tricuspid regurgitation I07.1 Elevated troponin R79.89 D-dimer, elevated R79.89 Pulmonary fibrosis J84.10 Pneumonia J18.9 COPD with acute exacerbation J44.1 DNR (do not resuscitate) Z66 Sepsis with acute hypoxic respiratory failure A41.9; R65.20; J96.01
--- NOTE | 2024-09-17 10:18 | PM.PN ---
Subjective Subjective: Patient is feeling better. No chest pain. Has some cough Vitals/I&O/Wt Last Vital Signs Temp 97.6 F 09/17/24 08:00 Pulse 90 09/17/24 08:00 Resp 24 H 09/17/24 08:00 BP 120/83 09/17/24 08:00 Pulse Ox 98 09/17/24 08:00 O2 Del Method Nasal Cannula 09/17/24 08:00 O2 Flow Rate 3 09/17/24 08:00 FiO2 40 09/16/24 06:15 09/16/24 09/17/24 09/17/24 22:59 06:59 14:59 Intake Total 780 / 1010 50 / 1060 50 / 50 Balance 780 / 1010 50 / 1060 50 / 50 Weight last 48 hrs Weight 104 lb Weight 90 lb 5 oz Physical Exam Narrative: GENERAL: Patient is alert, awake and oriented x3. [] NECK: No jugular vein distension. [] HEENT: No cyanosis. No icterus. No pallor. [] HEART: Regular S1 and S2. No murmur, rub or gallop. [] LUNGS: Clear to auscultate bilaterally. [] CENTRAL NERVOUS SYSTEM: Grossly nonfocal. [] EXTREMITIES: Lower extremities with 1+ edema bilaterally Urinary Catheter Management: Roche: Cath Placed During This Visit: yes Reason for Continuing Indwelling Catheter: Accurate Measurement of Urinary Output in Critically Ill Patients Urinary Catheter Date of Insertion: 09/14/24 Urinary Catheter Time of Insertion: 10:30 Data 09/17/24 05:23 09/17/24 05:23 Micro: Microbiology 09/16/24 19:00 Occult Blood (FIT) - Final Stool - Stool Aspirate 09/11/24 13:23 Blood Culture - Final Blood NO GROWTH AFTER 5 DAYS 09/11/24 13:21 Blood Culture - Final Blood NO GROWTH AFTER 5 DAYS A&P Assessment and plan (1) Cardiomyopathy: Qualifiers: Cardiomyopathy type: ischemic Qualified Code(s): I25.5 - Ischemic cardiomyopathy (2) Sinus tachycardia: (3) Severe tricuspid regurgitation: (4) Elevated troponin: (5) Congestive heart failure: Qualifiers: Heart failure type: systolic Heart failure chronicity: chronic Qualified Code(s): I50.22 - Chronic systolic (congestive) heart failure (6) Hypotension: Plan Patient wants to go home. WBC count still elevated. Symptomatically feels she is doing well. From cardiology standpoint no further interventions at this time. Discharge decision per primary team. Attestations Medical Necessity Statement*: Care expected to cross 2 midnights. Coding Level of Care Code Acute Code for [facility] Fwd Diagnoses Ischemic cardiomyopathy I25.5 Cardiomyopathy type: ischemic Sinus tachycardia R00.0 Severe tricuspid regurgitation I07.1 Elevated troponin R79.89 Chronic systolic congestive heart failure I50.22 Heart failure type: systolic Heart failure chronicity: chronic Hypotension I95.9
[2024-09-17] MEDS: potassium chloride ER 20 mEq Tablet 40 MEQ PO (10:37)
== END 2024-09-17 13:21 | disposition home or self-care (01) | DRG 871 ==
LOC: ER 16:50 → ICU 17:33 → CSU 09-13 14:22 → ICU 09-14 10:52 → CSU 09-16 07:54
PROVIDERS: Internal Medicine; Admitting Provider Internal Medicine; Emergency Provider Emergency Medicine; PCP Family Medicine; Visit Provider Internal Medicine
DX: A41.9 Sepsis, unspecified organism (principal); I50.23 Acute on chronic systolic (congestive) heart failure; R65.21 Severe sepsis with septic shock; J18.9 Pneumonia, unspecified organism; J96.21 Acute and chronic respiratory failure with hypoxia; J44.0 Chronic obstructive pulmonary disease with (acute) lower respiratory infection; J44.1 Chronic obstructive pulmonary disease with (acute) exacerbation; I42.9 Cardiomyopathy, unspecified; I95.9 Hypotension, unspecified; I27.20 Pulmonary hypertension, unspecified; I07.1 Rheumatic tricuspid insufficiency; R79.89 Other specified abnormal findings of blood chemistry; J84.10 Pulmonary fibrosis, unspecified; Z66 Do not resuscitate; J43.9 Emphysema, unspecified; I48.91 Unspecified atrial fibrillation; I25.10 Atherosclerotic heart disease of native coronary artery without angina pectoris; Z99.81 Dependence on supplemental oxygen; Z87.891 Personal history of nicotine dependence; I25.2 Old myocardial infarction; Z79.02 Long term (current) use of antithrombotics/antiplatelets
CPT/HCPCS: 0241U; 36415; 36573; 36592; 36600; 51702; 71045; 71250; 71275; 80048; 80051; 80053; 80202; 81001; 82274; 82330; 82607; 82728; 82746; 82805; 83540; 83550; 83605; 83735; 83880; 84100; 84145; 84443; 84484; 85025; 85378; 86140; 87040; 87045; 87427; 87449; 87486; 87493; 87581; 87633; 93005; 94640; 94660; 96365; 96367; 96372; 96374; 96375; 96376; 97110; 97116; 97161; 99285; 99291; C8924; J1650; J1720; J1940; J2020; J2060; J2185; J2270; J2470; J2543; J2919; J3370; J3475; J3490; J7030; J7040; J7050; J7512; J7613

== ENCOUNTER 2024-09-17 17:52 | Inpatient (IN) | payer MEDICARE, SELFPAY ==
[2024-09-17] VITALS (11 sets, daily range): BP systolic 104–149; BP diastolic 72–93; PULSE 86–117; RESP 15–27; TEMP 36.8; O2SAT 94–100; BMI 17.4
--- NOTE | 2024-09-17 17:56 | XRR_ITS ---
PROCEDURE INFORMATION: Exam: XR Chest Exam date and time: 09/17/2024 6:05 PM Age: 84 years old Clinical indication: Cough and dyspnea and shortness of breath TECHNIQUE: Imaging protocol: Radiologic exam of the chest. Views: 1 view. COMPARISON: CR XR chest 1V portable [id number] 09/14/2024 12:13 PM FINDINGS: Tubes, catheters and devices: Removal of right PICC line Lungs: Bilateral diffuse interstitial infiltrates versus edema with dense consolidation in the right lower lobe . Pleural spaces: Slight increase in right pleural effusion. Heart/Mediastinum: Unremarkable. No cardiomegaly. Bones/joints: Unremarkable. XR/XR chest 1V portable [id number] IMPRESSION: 1. Bilateral diffuse interstitial infiltrates versus edema with dense consolidation in the right lower lobe . 2. Slight increase in right pleural effusion.
--- NOTE | 2024-09-17 17:59 | ECG_ITS ---
[employer] Test Date: 2024-09-17 Pat Name: Karen Hernandes Department: Room: Gender: Female Speeder Hand: : [id number] Requested By: Bhupinder Muñoz Order Number: [id number] Alexia MD: Isabel Hardwick M.D. Measurements Intervals [place] Rate: 112 P: 42 ME: 156 QRS: 0 QRSD: 91 T: 260 QT: 331 QTc: 452 Interpretive Statements SINUS TACHYCARDIA POSSIBLE LEFT ATRIAL ENLARGEMENT [-0.1mV P-WAVE IN V1/V2] LOW QRS VOLTAGE [QRS DEFLECTION < 0.5/1.0 mV IN LIMB/CHEST LEADS] ST DEVIATION AND MODERATE T-WAVE ABNORMALITY, CONSIDER ANTEROLATERAL ISCHEMIA [-0.1+ mV T-WAVE IN V3-V6] ST DEVIATION AND MODERATE T-WAVE ABNORMALITY, CONSIDER INFERIOR ISCHEMIA [-0.1+ mV T-WAVE IN II/aVF] Compared to ECG 09/14/2024 14:44:03 Low QRS voltage now present.Sinus rhythm no longer present T-wave abnormality still present.Possible ischemia still present Electronically Signed On 09-17-2024 23:50:16 REVERSE UNIT OPERATOR by Isabel Hardwick M.D. [email or web address]
--- NOTE | 2024-09-17 18:00 | ED_ITS ---
HPI - SOB/Dyspnea 2 General: Chief Complaint: Shortness of Breath/Dyspnea Stated Complaint: sob Time Seen by Provider: 09/17/24 17:56 History of Present Illness: HPI Narrative: Presents to the ER by EMS with severe shortness of breath. EMS found the patient on 4 L of oxygen with an O2 sat of 70%. Less responsive than normal, she was given a DuoNeb en route put on a facemask at 10 L. Arrived to the ER with a O2 sats of 97%. EMS said the patient's heart rate bounced all the way from 120s to 25 bpm. Patient is pale in color. Patient was just discharged from our hospital today for acute respiratory failure with hypoxia. Elevated white blood cell count, elevated troponin, she was sent home on levofloxacin and Eliquis but has not picked them up yet Related Data Home Medications Medication Instructions Recorded Confirmed lorazepam 1 mg tablet 0.5 - 1 mg PO DAILY PRN Anxiety 01/22/23 09/11/24 nitroglycerin 0.4 mg sublingual 0.4 mg sublingual Q5M PRN Chest 04/05/23 09/11/24 tablet (Nitrostat) Pain Previous Rx's Medication Instructions Recorded Acapella #1 ea 06/10/23 tiotropium bromide 18 mcg capsule 1 cap inhalation DAILY #60 06/10/23 with inhalation device (Spiriva inhalations with HandiHaler) sennosides 8.6 mg-docusate sodium 1 tab PO DAILY #10 tabs 10/09/23 50 mg tablet (Stool Softener-Laxative) tramadol 50 mg tablet 50 mg PO Q8H PRN Pain #20 tabs 10/09/23 atorvastatin 40 mg tablet 40 mg PO BEDTIME 30 days #30 tabs 06/08/24 clopidogrel 75 mg tablet (Plavix) 75 mg PO DAILY 30 days #30 tabs 06/08/24 furosemide 20 mg tablet 20 mg PO DAILY #90 tabs 09/09/24 apixaban 5 mg (74 tabs) tablets in 5 mg PO BID #74 ea 09/17/24 a dose pack (Eliquis DVT-PE Treat 30D Start) levofloxacin 750 mg tablet 750 mg PO DAILY 5 days #5 tabs 09/17/24 prednisone 10 mg tablet 10 mg PO DAILY #30 tabs 09/17/24 Allergies Allergy/AdvReac Type Severity Reaction Status Date / Time meperidine [From Demerol] Allergy ADR-Halluci Verified 06/08/24 14:13 nating Review of Systems 2 General: Reports: 10 or more systems reviewed and unremarkable except in HPI and below PFSH ED 2 PFSH: Medical History Pulmonary hypertension Severe tricuspid regurgitation Acute exacerbation of idiopathic pulmonary fibrosis SOB (shortness of breath) Productive cough NSTEMI (non-ST elevated myocardial infarction) Pulmonary emphysema with fibrosis of lung Compression fracture of T7 vertebra Bronchiectasis Sepsis Hyponatremia Leukocytosis Right lower lobe pneumonia T12 vertebral fracture Atherosclerotic heart disease of [place] coronary artery with other forms of angina pectoris Ischemic cardiomyopathy Cardiomyopathy Traumatic compression fracture of T12 thoracic vertebra Allergic rhinitis COVID Pneumonia Surgical History History of abdominal surgery H/O section Family History Father Myocardial infarction Family/Other Breast cancer Social History Smoking and tobacco/nicotine status: former use of tobacco/nicotine Quit status (tobacco/nicotine): has quit using Year quit tobacco: 50-60 years ago Alcohol intake: never Substance/Drug Use: never Physical Exam 2 Const: COMMON NORMALS: alert HENMT: COMMON NORMALS: normocephalic, atraumatic, hearing grossly normal bilaterally, external ears normal, Normal external nose present and moist oral mucous membranes HEAD & SCALP: normocephalic and atraumatic NOSE: Normal external nose present EXTERNAL EAR: Yes external ears normal Eye: COMMON NORMALS: Equal, round and reactive pupils present, EOMs intact bilaterally, conjunctivae normal and no scleral icterus CONJUNCTIVA: Yes conjunctivae normal PUPIL: Yes Equal, round and reactive pupils present Neck/C-Spine: COMMON NORMALS: no JVD Chest: COMMONS NORMALS: normal inspection of the chest and normal palpation of entire chest wall Resp: COMMON NORMALS: normal respiratory effort, No retractions, No use of accessory muscles and clear to auscultation bilaterally AUSCULTATION: clear to auscultation bilaterally Cardio: COMMON NORMALS: no JVD, regular rhythm, S1 normal heart sound present, S2 normal heart sound present, No gallops present (Cardio), No clicks present (Cardio), No murmurs present (Cardio) and No rub (Cardio); negative for regular rate (Tachycardia mild) RATE: abnormal rate (Tachycardia mild) RHYTHM: regular rhythm HEART SOUNDS: S1 normal heart sound present and S2 normal heart sound present GI: COMMON NORMALS: Normal to inspection, nondistended, normoactive bowel sounds present, Soft to palpation, non-tender, No hepatosplenomegaly present and no masses PALPATION: Yes Soft to palpation and Yes No hepatosplenomegaly present Neuro: SENSORIUM/ORIENTATION: Yes alert Course 2 Vital Signs: Vital signs: Vital Signs Temperature 98.3 F 09/17/24 17:53 Pulse Rate 104 H 09/17/24 18:45 Respiratory Rate 20 H 09/17/24 17:53 Blood Pressure 104/72 09/17/24 18:45 Pulse Oximetry 100 09/17/24 18:45 Oxygen Delivery Me thod Non-Rebreather 09/17/24 18:45 Oxygen Flow Rate 8 09/17/24 18:45 MDM - SOB/Dyspnea Medical Decision Making Lab work reviewed, x-ray. Worsened. Dr. Bunn was consulted who agreed to place the patient in ICU for further evaluation treatment. Medical Records I reviewed the patient's medical records. Lab Data I reviewed the patient's lab results. 09/17/24 18:05 09/17/24 18:05 Labs/Radiology: Radiology Impressions Chest X-Ray 09/17/24 17:56 IMPRESSION: 1. Bilateral diffuse interstitial infiltrates versus edema with dense consolidation in the right lower lobe . 2. Slight increase in right pleural effusion. Laboratory Results WBC 25.78 10^3/uL (3.29-11.43) H 09/17/24 18:05 RBC 3.31 10^6/uL (3.85-5.65) L 09/17/24 18:05 Hgb 10.40 g/dL (11.27-16.99) L 09/17/24 18:05 Hct 33.2 % (36-47) L 09/17/24 18:05 MCV 100.3 fl (85-98) H 09/17/24 18:05 MCH 31.4 pg (27-33) 09/17/24 18:05 MCHC 31.3 g/dL (30-55) 09/17/24 18:05 RDW 15.1 % (12.1-15.1) 09/17/24 18:05 Plt Count 385 10^3/cmm (157-399) 09/17/24 18:05 MPV 9.4 fL (7.4-10.4) 09/17/24 18:05 Neut % (Auto) 87.9 % 09/17/24 18:05 Lymph % (Auto) 5.8 % 09/17/24 18:05 Crisp % (Auto) 5.3 % 09/17/24 18:05 Eos % (Auto) 0.0 % 09/17/24 18:05 Baso % (Auto) 0.1 % 09/17/24 18:05 Neut # (Auto) 22.65 10^3/uL (1.8-7.7) H 09/17/24 18:05 Lymph # (Auto) 1.5 10^3/uL (0.8-4.8) 09/17/24 18:05 Crisp # (Auto) 1.4 10^3/uL (0.2-0.9) H 09/17/24 18:05 Eos # (Auto) 0.0 10^3/uL (0.0-0.8) 09/17/24 18:05 Baso # (Auto) 0.0 10^3/uL (0.0-0.1) 09/17/24 18:05 Nucleated RBC % (auto) 0 % 09/17/24 18:05 Nucleated RBCs # 0.0 /100WBC 09/17/24 18:05 PT 12.40 SECONDS (12.1-14.9) 09/17/24 18:05 INR 0.90 (0.8-1.2) 09/17/24 18:05 Specimen Type Arterial 09/17/24 17:58 Sample Site Radial, right 09/17/24 17:58 ABG pH 7.43 (7.35-7.45) 09/17/24 17:58 ABG pCO2 29.6 mmHg (35-45) L 09/17/24 17:58 ABG pO2 105.0 mmHg (80.0-100.0) H 09/17/24 17:58 ABG HCO3 19.6 mmol/L (22-26) L 09/17/24 17:58 ABG O2 Saturation 98.8 09/17/24 17:58 ABG Base Excess -3.9 mmol/L (-2.0-2.0) L 09/17/24 17:58 Alejo Test Pos 09/17/24 17:58 A-a O2 Gradient 0.8 mmHg (5-10) L 09/17/24 17:58 Hematocrit 30.5 % (37-47) L 09/17/24 17:58 Hgb O2 Saturation 97.2 % (95-100) 09/17/24 17:58 Carboxyhemoglobin 1.0 %THgb (0.4-20.1) 09/17/24 17:58 Methemoglobin 0.6 % (0.4-1.5) 09/17/24 17:58 Total Hemoglobin 9.9 g/dL (12-16) L 09/17/24 17:58 Sodium 142.0 mmol/L (131-143) 09/17/24 17:58 Potassium 3.3 mmol/L (3.5-5.0) L 09/17/24 17:58 Glucose 140.0 mg/dL (70-115) H 09/17/24 17:58 Ionized Calcium 1.4 mmol/L (1.1-1.4) 09/17/24 17:58 O2 Delivery Device Nrb 09/17/24 17:58 O2 Liters/Min 12.0 % 09/17/24 17:58 Can Washer ID Jdb 09/17/24 17:58 Sodium 139 mmol/L (136-145) 09/17/24 18:05 Potassium 3.6 mmol/L (3.5-5.1) 09/17/24 18:05 Chloride 107 mmol/L (98-107) 09/17/24 18:05 Carbon Dioxide 20 mmol/L (22-29) L 09/17/24 18:05 Anion Gap 15.6 (5-19) 09/17/24 18:05 BUN 31 mg/dL (8-23) H 09/17/24 18:05 Creatinine 1.0 mg/dL (0.5-0.9) H 09/17/24 18:05 GFR Calculation Not Reportable 09/17/24 18:05 Glucose 137 mg/dL (65-115) H 09/17/24 18:05 Calculated Osmolality 297 mOsm/kg (285-295) H 09/17/24 18:05 Lactic Acid 3.5 mmol/L (0.5-2.2) H 09/17/24 18:05 Calcium 10.1 mg/dL (8.5-10.5) 09/17/24 18:05 Magnesium 2.3 mg/dL (1.7-2.3) 09/17/24 18:05 Total Bilirubin 0.4 mg/dL (0.15-1.2) 09/17/24 18:05 AST 40 U/L (0-32) H 09/17/24 18:05 ALT 39 U/L (0-33) H 09/17/24 18:05 Alkaline Phosphatase 59 U/L (35-105) 09/17/24 18:05 Troponin T Baseline 260 ng/L (0-10) H* 09/17/24 18:05 Total Protein 6.8 g/dL (6.6-8.7) 09/17/24 18:05 Albumin 3.4 g/dL (3.5-5.2) L 09/17/24 18:05 Globulin 3.4 g/dL (1.3-4.6) 09/17/24 18:05 Procalcitonin 1.59 ng/mL (0-0.5) H 09/17/24 18:05 All radiology interpretation(s) finalized by discharge Discharge Plan Discharge Patient Disposition: Admitted As Inpatient Clinical Impression: Acute on chronic hypoxic respiratory failure Condition: Stable Coding Level of Care Code ED Pairer Odds for Keke Alvarez
[2024-09-17 18:10] LABS: ABG PCO2 29.6 mmHg (35-45); ABG PH Result 7.43 (7.35-7.45); Alveolar-Arterial Oxygen Gradi 0.8 mmHg (5-10); Arterial Blood Gas Hematocrit 30.5 % (37-47); Base Excess ABG -3.9 mmol/L (-2.0-2.0); Blood Gas Allen Test Pos; Blood Gas Operator Identificat JDB; Blood Gas Sample Site Radial, right; Blood Gas Sample Type Arterial; HCO3 ABG 19.6 mmol/L (22-26); HGB O2 Sat 97.2 % (95-100); Ionized Calcium Level - ABG 1.4 mmol/L (1.1-1.4); Methemoglobin 0.6 % (0.4-1.5); Oxygen Device NRB; Oxygen Saturation ABG 98.8; Potassium Level - ABG 3.3 mmol/L (3.5-5.0); Total Hemoglobin 9.9 g/dL (12-16)
[2024-09-17 18:17] LABS: Basophils % 0.1 %; Hematocrit 33.2 % (36-47); Lymphocytes # 1.5 10^3/uL (0.8-4.8); Lymphocytes % 5.8 %; Mean Corpuscular HGB Conc 31.3 g/dL (30-55); Mean Corpuscular Hemoglobin 31.4 pg (27-33); Mean Corpuscular Volume 100.3 fl (85-98); Mean Platelet Volume 9.4 fL (7.4-10.4); Monocytes # 1.4 10^3/uL (0.2-0.9); Monocytes % 5.3 %; Neutrophils # 22.65 10^3/uL (1.8-7.7); Neutrophils % 87.9 %; Nucleated Red Blood Cells % 0 %; Platelet Count 385 10^3/cmm (157-399); Red Blood Count 3.31 10^6/uL (3.85-5.65); Red Cell Distribution Width 15.1 % (12.1-15.1); White Blood Count 25.78 10^3/uL (3.29-11.43)
[2024-09-17 18:36] LABS: Troponin(5th) Baseline 260 ng/L (0-10)
[2024-09-17 18:37] LABS: Anion Gap 15.6 (5-19); Blood Urea Nitrogen 31 mg/dL (8-23); Carbon Dioxide 20 mmol/L (22-29); Chloride 107 mmol/L (98-107); Potassium 3.6 mmol/L (3.5-5.1); Sodium 139 mmol/L (136-145)
[2024-09-17 18:38] LABS: Alanine Aminotransferase 39 U/L (0-33); Albumin Level 3.4 g/dL (3.5-5.2); Alkaline Phosphatase 59 U/L (35-105); Aspartate Amino Transferase 40 U/L (0-32); Calcium 10.1 mg/dL (8.5-10.5); Creatinine Clr Calc Pharmacy 31.2682; Globulin 3.4 g/dL (1.3-4.6); Glucose 137 mg/dL (65-115); Magnesium 2.3 mg/dL (1.7-2.3); Osmolality Calculated 297 mOsm/kg (285-295); Total Bilirubin 0.4 mg/dL (0.15-1.2); Total Protein 6.8 g/dL (6.6-8.7)
[2024-09-17 18:39] LABS: Lactic Sepsis W/Reflex 3.5 mmol/L (0.5-2.2)
[2024-09-17 18:45] LABS: Procalcitonin 1.59 ng/mL (0-0.5)
[2024-09-17 20:00] LABS: Reflex Lactate Order REFLEX LACTIC ORDERD
--- NOTE | 2024-09-17 20:01 | PM.HP ---
Providers/Chief Complaint Primary Care Provider: Eber Albarran MD Chief Complaint: sob History of Present Illness Karen Hernandes is a 84 year old female with a past medical history of pulm hypertension, severe tricuspid valve regurg, COPD, anemia, atrial fibrillation systolic CHF with low EF, low BMI, recent admitted to [facility] for sepsis related to right lower lobe pneumonia, shock, atrial fibrillation, troponin elevation, systolic CHF exacerbation. Patient was discharged this morning, when she got home, she reported fatigue, malaise, increased shortness of breath. She tells me that when she went to bed, her family checked up on her, she was complaining of shortness of breath, she was less responsive, they checked her O2 sats there were low 70s on her 3 L, heart rates were in the 130s, she was not responding properly so they had EMS called out to her home. Patient was placed on 10 L nonrebreather here, during my examination she is on 9 L nonrebreather, alert oriented x 3, following commands, in moderate respiratory distress, with tachypnea, tachycardia, intercostal retractions, suprasternal retractions, short of breath with a few words, family members are at bedside. She also had episode of chest pain when she got home, required nitroglycerin. Currently her biggest complaint is shortness of breath, and a nonproductive cough. Review of Systems Const: Reports: fatigue and malaise Card: Reports: chest pain Resp: Reports: dyspnea Medications/Allergies Home Medications Medication Instructions Recorded Confirmed Last Taken Type lorazepam 1 mg tablet 0.5 - 1 mg PO DAILY PRN Anxiety 01/22/23 09/11/24 Unknown History nitroglycerin 0.4 mg sublingual 0.4 mg sublingual Q5M PRN Chest 04/05/23 09/11/24 Unknown History tablet (Nitrostat) Pain Acapella #1 ea 06/10/23 09/11/24 Unknown Rx tiotropium bromide 18 mcg capsule 1 cap inhalation DAILY #60 06/10/23 09/11/24 10/07/23 Rx with inhalation device (Spiriva inhalations with HandiHaler) sennosides 8.6 mg-docusate sodium 1 tab PO DAILY #10 tabs 10/09/23 09/11/24 Unknown Rx 50 mg tablet (Stool Softener-Laxative) tramadol 50 mg tablet 50 mg PO Q8H PRN Pain #20 tabs 10/09/23 09/11/24 09/11/24 Rx atorvastatin 40 mg tablet 40 mg PO BEDTIME 30 days #30 tabs 06/08/24 09/11/24 09/11/24 Rx clopidogrel 75 mg tablet (Plavix) 75 mg PO DAILY 30 days #30 tabs 06/08/24 09/11/24 09/11/24 Rx furosemide 20 mg tablet 20 mg PO DAILY #90 tabs 09/09/24 09/11/24 09/11/24 Rx apixaban 5 mg (74 tabs) tablets in 5 mg PO BID #74 ea 09/17/24 Unknown Rx a dose pack (EliquBrainceuticals DVT-PE Treat 30D Start) levofloxacin 750 mg tablet 750 mg PO DAILY 5 days #5 tabs 09/17/24 Unknown Rx prednisone 10 mg tablet 10 mg PO DAILY #30 tabs 09/17/24 Unknown Rx Allergies Allergy/AdvReac Type Severity Reaction Status Date / Time meperidine [From Demerol] Allergy ADR-Halluci Verified 06/08/24 14:13 nating PFSH Acute PFSH: Medical History Pulmonary hypertension Severe tricuspid regurgitation Acute exacerbation of idiopathic pulmonary fibrosis SOB (shortness of breath) Productive cough NSTEMI (non-ST elevated myocardial infarction) Pulmonary emphysema with fibrosis of lung Compression fracture of T7 vertebra Bronchiectasis Sepsis Hyponatremia Leukocytosis Right lower lobe pneumonia T12 vertebral fracture Atherosclerotic heart disease of [place] coronary artery with other forms of angina pectoris Ischemic cardiomyopathy Cardiomyopathy Traumatic compression fracture of T12 thoracic vertebra Allergic rhinitis COVID Pneumonia Surgical History History of abdominal surgery H/O section Family History Father Myocardial infarction Family/Other Breast cancer Social History Smoking and tobacco/nicotine status: former use of tobacco/nicotine Quit status (tobacco/nicotine): has quit using Year quit tobacco: 50-60 years ago Alcohol intake: never Substance/Drug Use: never Vitals/I&O/Wt Last Vital Signs Temp 98.3 F 09/17/24 17:53 Pulse 104 H 09/17/24 18:45 Resp 20 H 09/17/24 17:53 BP 104/72 09/17/24 18:45 Pulse Ox 100 09/17/24 18:45 O2 Del Method Non-Rebreather 09/17/24 18:45 O2 Flow Rate 8 09/17/24 18:45 Weight last 48 hrs Weight 43.091 kg Physical Exam Const: COMMON NORMALS: patient oriented x3 GENERAL APPEARANCE: ill appearing and frail appearing NUTRITIONAL APPEARANCE: cachectic Eye: COMMON NORMALS: Equal, round and reactive pupils present Neck/C-Spine: COMMON NORMALS: no JVD Resp: EFFORT & INSPECTION: Yes tachypneic, Yes respiratory distress, Yes retractions and Yes uses accessory muscles AUSCULTATION: crackles and wheezes Cardio: COMMON NORMALS: regular rate, regular rhythm, S1 normal heart sound present and S2 normal heart sound present RATE: tachycardic RHYTHM: regular rhythm HEART SOUNDS: S1 normal heart sound present and S2 normal heart sound present GI: COMMON NORMALS: Normal to inspection, nondistended, normoactive bowel sounds present, Soft to palpation, non-tender and no bruits Extremity: COMMON NORMALS: capillary refill normal and no pedal edema Neuro: COMMON NORMALS: patient oriented x3, CN's II-XII intact bilaterally and moves all extremities Psych: COMMON NORMALS: mental status grossly normal Data 09/17/24 18:05 09/17/24 18:05 A&P Assessment and plan (1) Pulmonary hypertension: (2) Congestive heart failure: Qualifiers: Heart failure type: systolic Heart failure chronicity: chronic Qualified Code(s): I50.22 - Chronic systolic (congestive) heart failure (3) Severe tricuspid regurgitation: (4) Atherosclerosis of coronary artery of [place] heart without angina pectoris: Qualifiers: Coronary Disease-Associated Artery/Lesion type: [place] artery Qualified Code(s): I25.10 - Atherosclerotic heart disease of [place] coronary artery without angina pectoris (5) Sepsis with acute hypoxic respiratory failure: (6) Pneumonia: (7) Acute on chronic hypoxic respiratory failure: (8) Systolic CHF, acute: Plan Acute hypoxic respiratory failure ? Secondary to right-sided pneumonia # Secondary to systolic CHF exacerbation -with underlying COPD ? Plan ? Start vancomycin ? Start meropenem ? Sputum cultures, blood cultures, LDH, beta D glucan ? Respiratory viral panel ? Lasix 40 mg IV twice daily # Continue prednisone 40 mg daily ? DuoNeb -Prednisone 40 mg daily ? Currently on nonrebreather, can try heated high flow, according to patient's daughters the last time she was here she could not tolerate BiPAP ? Goals of care discussion, patient does not want to have aggressive interventions, she is a DNR/DNI, confirmed with her multiple times ? Heparin drip for DVT prophylaxis Sepsis Sepsis features met, due to leukocytosis elevated Pro-Manuel, respiratory failure, right-sided pneumonia Systolic CHF exacerbation ? Echocardiogram during her hospitalization showed reduced ejection fraction with cardiomyopathy Concerns for left ventricular apical thrombus Continue heparin drip NSTEMI ? Serial EKGs, sore troponins, telemetry monitoring ? Continue Plavix, statin, heparin drip -Monitor for chest pain MARLO, monitor creatinine Elevated lactic acid 3.5, monitor Transaminitis, monitor Attestations Medical Necessity Statement*: Patient requires hospitalization, inpatient, greater than 2 midnights, for right-sided pneumonia, sepsis, acute hypoxic respiratory failure, NSTEMI, CHF exacerbation systolic Diagnoses Pulmonary hypertension I27.20 Chronic systolic congestive heart failure I50.22 Heart failure type: systolic Heart failure chronicity: chronic Severe tricuspid regurgitation I07.1 Atherosclerosis of [place] coronary artery of [place] heart without angina pectoris I25.10 Coronary Disease-Associated Artery/Lesion type: [place] artery Sepsis with acute hypoxic respiratory failure A41.9; R65.20; J96.01 Pneumonia J18.9 Acute on chronic hypoxic respiratory failure J96.21 Systolic CHF, acute I50.21
--- NOTE | 2024-09-17 20:03 | PHA.VACGOAL ---
Vancomycin Goal - Goal Vancomycin Goal:: 15-20 mg/L Vancomycin Indication:: Pneumonia - Therapy Day of therpy:: Day []of [] . Actual body weight (kg): 95 lb - Data Labs: WBC 25.78 10^3/uL (3.29-11.43) H 09/17/24 18:05 RBC 3.31 10^6/uL (3.85-5.65) L 09/17/24 18:05 Hgb 10.40 g/dL (11.27-16.99) L 09/17/24 18:05 Hct 33.2 % (36-47) L 09/17/24 18:05 MCV 100.3 fl (85-98) H 09/17/24 18:05 MCH 31.4 pg (27-33) 09/17/24 18:05 MCHC 31.3 g/dL (30-55) 09/17/24 18:05 RDW 15.1 % (12.1-15.1) 09/17/24 18:05 Sodium 139 mmol/L (136-145) 09/17/24 18:05 Potassium 3.6 mmol/L (3.5-5.1) 09/17/24 18:05 Chloride 107 mmol/L (98-107) 09/17/24 18:05 Carbon Dioxide 20 mmol/L (22-29) L 09/17/24 18:05 Anion Gap 15.6 (5-19) 09/17/24 18:05 BUN 31 mg/dL (8-23) H 09/17/24 18:05 Creatinine 1.0 mg/dL (0.5-0.9) H 09/17/24 18:05 GFR Calculation Not Reportable 09/17/24 18:05 Treatment plan:: new consult Regimen:: 1250 MG LOADING DOSE 750 MG Q24H MAINTENANCE
[2024-09-17] MEDS: heparin 5,000 unit/mL INJ 1 mL IVP (20:17)
[2024-09-17] MEDS: meropenem 500 mg SDV IVP (20:45)
[2024-09-17] MEDS: vancomycin 1,250 MG/250 ML PIGGYBACK 166.67 MG IV (20:45)
[2024-09-17] MEDS: FUROsemide 10 mg/mL SDV 4mL 40 MG IVP (20:52)
[2024-09-17] MEDS: pantoprazole 40 mg SDV IVP (20:52)
[2024-09-17] MEDS: atorvastatin 40 mg Tablet PO (20:53)
[2024-09-17 21:11] LABS: Lactic Acid level (Lactate) 2.3 mmol/L (0.5-2.2); Troponin 5 2HR 287.7 ng/L (0-10); Troponin 5 2HR Delta 27.7 ABS# (0-10)
[2024-09-17] MEDS: heparin drip 25,000 UNIT/500 ML PREMIX 12 UNIT IV (21:15)
[2024-09-17 21:34] LABS: C Reactive Protein 32.8 mg/L (0.0-4.9); Lactate Dehydrogenase 265 U/L (135-214); Thyroid Stimulating Hormone 2.63 uIU/mL (0.27-4.20)
[2024-09-17 21:55] LABS: NT Pro B Type Natriuretic Pept 63619 pg/mL (0-450)
[2024-09-17 21:59] LABS: Covid PCR NEGATIVE (Negative); Influenza A NEGATIVE (Negative); Influenza B NEGATIVE (Negative); Respiratory Syncytial Virus Ce NEGATIVE (Negative)
[2024-09-17 23:41] LABS: Bilirubin Urine Negative (Negative); Blood Urine 2+ (Negative); Glucose Urine UA Negative (Normal); Ketones Urine Negative (Negative); Leukocyte Esterase Urine Negative (Negative); Nitrate Urine Negative (Negative); Protein Urine Negative (Negative); Specific Gravity, Urine 1.007 (1.005-1.030); Urine Appearance Clear (CLEAR); Urine Color Yellow (Yellow); Urobilinogen Urine 0.2 mg/dL (Negative)
[2024-09-17 23:46] LABS: Add Urine Microscopic? YES; Bacteria Urine None Seen /hpf; Hyaline Casts Urine 1.65 /lpf; Squamous Epithelial Cell Urine 0-5 /hpf (0-5); WBC Urine 0-5 /hpf (0-5)
--- NOTE | 2024-09-17 23:58 | ECG_ITS ---
[employer] Test Date: 2024-09-17 Pat Name: Karen Hernandes Department: Room: Gender: Female [employer] Coordinator: : 1940 Requested By: Bhupinder Muñoz Order Number: [id number] Alexia MD: Isabel Hardwick M.D. Measurements Intervals [place] Rate: 92 P: 39 [place]: 186 QRS: -30 QRSD: 87 T: 268 QT: 359 QTc: 446 Interpretive Statements SINUS RHYTHM POSSIBLE LEFT ATRIAL ENLARGEMENT [-0.1mV P-WAVE IN V1/V2] LOW QRS VOLTAGE [QRS DEFLECTION < 0.5/1.0 mV IN LIMB/CHEST LEADS] POSSIBLE RIGHT VENTRICULAR CONDUCTION DELAY [RSR (QR) IN V1/V2] POSSIBLE ANTERIOR MYOCARDIAL INFARCTION , OF INDETERMINATE AGE [30 ms Q WAVE IN V3/V4, OR R < 0.2 mV IN V4] MODERATE T-WAVE ABNORMALITY, CONSIDER LATERAL ISCHEMIA [-0.1+ mV T-WAVE IN I/aVL/V5/V6].MODERATE T-WAVE ABNORMALITY, CONSIDER INFERIOR ISCHEMIA [-0.1+ mV T-WAVE IN II/aVF] Compared to ECG 09/17/2024 17:59:10.Myocardial infarct finding now present Sinus tachycardia no longer present. T-wave abnormality still present.Possible ischemia still present Electronically Signed On 09-18-2024 00:01:32 HYPERBAR[employer] WELDER DIVER by Isabel Hardwick M.D. [email or web address]
[2024-09-18] VITALS (27 sets, daily range): BP systolic 91–121; BP diastolic 53–78; PULSE 79–120; RESP 16–34; TEMP 30.7–37.5; O2SAT 89–100
[2024-09-18 00:02] LABS: Add Urine Culture? Yes
[2024-09-18 01:55] LABS: MRSA PCR OZH (swab) NOT DETECTED (Not Detecte)
[2024-09-18 04:12] LABS: Basophils % 0.2 %; Eosinophils % 0.1 %; Hematocrit 30.9 % (36-47); Lymphocytes # 1.7 10^3/uL (0.8-4.8); Lymphocytes % 8.9 %; Mean Corpuscular HGB Conc 31.7 g/dL (30-55); Mean Corpuscular Hemoglobin 31.8 pg (27-33); Mean Corpuscular Volume 100.3 fl (85-98); Mean Platelet Volume 9.6 fL (7.4-10.4); Monocytes % 5.2 %; Neutrophils # 15.65 10^3/uL (1.8-7.7); Neutrophils % 84.7 %; Nucleated Red Blood Cells % 0 %; Platelet Count 296 10^3/cmm (157-399); Red Blood Count 3.08 10^6/uL (3.85-5.65); Red Cell Distribution Width 15.2 % (12.1-15.1); White Blood Count 18.47 10^3/uL (3.29-11.43)
[2024-09-18 04:30] LABS: Partial Thromboplastin Time 48.2 SECONDS (23.9-36.7)
[2024-09-18 04:32] LABS: Anion Gap 14.2 (5-19); Blood Urea Nitrogen 29 mg/dL (8-23); Calcium 9.5 mg/dL (8.5-10.5); Carbon Dioxide 24 mmol/L (22-29); Chloride 109 mmol/L (98-107); Creatinine Clr Calc Pharmacy 31.3763; Glucose 113 mg/dL (65-115); Magnesium 2.2 mg/dL (1.7-2.3); Osmolality Calculated 305 mOsm/kg (285-295); Potassium 3.2 mmol/L (3.5-5.1); Sodium 144 mmol/L (136-145)
[2024-09-18] MEDS: morphine 4 mg/mL SDV 1 mL 2 MG IVP (04:35)
[2024-09-18] MEDS: heparin 5,000 unit/mL INJ 1 mL IVP ×2 (04:52→11:39)
[2024-09-18 05:12] LABS: NT Pro B Type Natriuretic Pept > 70000 pg/mL (0-450)
[2024-09-18] MEDS: meropenem 500 mg SDV IVP ×2 (07:36→20:07)
[2024-09-18] MEDS: acetaminophen 325 mg Tablet 650 MG PO (07:37)
--- NOTE | 2024-09-18 08:12 | PC.PHAR ---
Verified with [facility]-pts' family did product picker her new medications on 09/17/24. They are Levaquin 750mg, Eliquis dvt starter pack, and Prednisone 10 mg taper.
[2024-09-18] MEDS: clopidogrel 75 mg Tablet PO (10:45)
[2024-09-18] MEDS: potassium chloride ER 20 mEq Tablet 40 MEQ PO (10:45)
[2024-09-18] MEDS: FUROsemide 10 mg/mL SDV 4mL 40 MG IVP ×2 (10:45→20:17)
[2024-09-18] MEDS: predniSONE 20 mg Tablet 40 MG PO (10:45)
--- NOTE | 2024-09-18 10:55 | P.PN_ITS ---
Subjective 2 Subjective: Patient seen this morning. She states she fell apart yesterday. She is weaker than before. Says she is not hungry but will have some coffee. Vitals/I&O/Wt Last Vital Signs Temp 87.3 F L 09/18/24 04:00 Pulse 99 09/18/24 08:00 Resp 16 09/18/24 08:00 BP 111/75 09/18/24 04:00 Pulse Ox 89 L 09/18/24 08:00 O2 Del Method Nasal Cannula 09/18/24 08:00 O2 Flow Rate 4 09/18/24 08:00 09/17/24 09/18/24 09/18/24 22:59 06:59 14:59 Intake Total 250 / 250 190.8 / 440.8 Output Total 1750 / 1750 Balance 250 / 250 -1559.2 / -1309.2 Weight last 48 hrs Weight 43.5 kg Weight 43.5 kg Weight 43.5 kg Weight 43.091 kg Physical Exam 2 Const: COMMON NORMALS: patient oriented x3 GENERAL APPEARANCE: ill appearing and frail appearing NUTRITIONAL APPEARANCE: cachectic Eye: COMMON NORMALS: Equal, round and reactive pupils present PUPIL: Yes Equal, round and reactive pupils present Neck/C-Spine: COMMON NORMALS: no JVD Resp: EFFORT & INSPECTION: Yes tachypneic, Yes respiratory distress, Yes retractions and Yes uses accessory muscles AUSCULTATION: crackles and wheezes Cardio: COMMON NORMALS: no JVD, regular rate, regular rhythm, S1 normal heart sound present and S2 normal heart sound present RATE: regular rate and tachycardic RHYTHM: regular rhythm HEART SOUNDS: S1 normal heart sound present and S2 normal heart sound present GI: COMMON NORMALS: Normal to inspection, nondistended, normoactive bowel sounds present, Soft to palpation, non-tender and no bruits PALPATION: Yes Soft to palpation Extremity: COMMON NORMALS: capillary refill normal and no pedal edema Neuro: COMMON NORMALS: patient oriented x3 and moves all extremities Psych: COMMON NORMALS: mental status grossly normal Urinary Catheter Management: Roche: Cath Placed During This Visit: yes Reason for Continuing Indwelling Catheter: Accurate Measurement of Urinary Output in Critically Ill Patients Urinary Catheter Date of Insertion: 09/17/24 Urinary Catheter Time of Insertion: 23:07 Data 09/18/24 03:58 09/18/24 03:58 Micro: Microbiology 09/17/24 20:30 Blood Culture - Preliminary Blood SPECIMEN COLLECTED 09/17/24 20:25 Blood Culture - Preliminary Blood SPECIMEN COLLECTED A&P Assessment and plan (1) Pulmonary hypertension: (2) Congestive heart failure: Qualifiers: Heart failure type: systolic Heart failure chronicity: chronic Qualified Code(s): I50.22 - Chronic systolic (congestive) heart failure (3) Severe tricuspid regurgitation: (4) Atherosclerosis of coronary artery of [place] heart without angina pectoris: Qualifiers: Coronary Disease-Associated Artery/Lesion type: [place] artery Qualified Code(s): I25.10 - Atherosclerotic heart disease of [place] coronary artery without angina pectoris (5) Sepsis with acute hypoxic respiratory failure: (6) Pneumonia: (7) Acute on chronic hypoxic respiratory failure: (8) Systolic CHF, acute: Plan Acute hypoxic respiratory failure ? Secondary to right-sided pneumonia # Secondary to systolic CHF exacerbation -with underlying COPD ? Plan ? Start vancomycin ? Start meropenem ? Sputum cultures, blood cultures, LDH, beta D glucan ? Respiratory viral panel ? Lasix 40 mg IV twice daily # Continue prednisone 40 mg daily ? DuoNeb -Prednisone 40 mg daily ? Currently on nonrebreather, can try heated high flow, according to patient's daughters the last time she was here she could not tolerate BiPAP ? Goals of care discussion, patient does not want to have aggressive interventions, she is a DNR/DNI, confirmed with her multiple times ? Heparin drip for DVT prophylaxis Sepsis Sepsis features met, due to leukocytosis elevated Pro-Manuel, respiratory failure, right-sided pneumonia Systolic CHF exacerbation ? Echocardiogram during her hospitalization showed reduced ejection fraction with cardiomyopathy Concerns for left ventricular apical thrombus Continue heparin drip NSTEMI ? Serial EKGs, sore troponins, telemetry monitoring ? Continue Plavix, statin, heparin drip -Monitor for chest pain MARLO, monitor creatinine Elevated lactic acid 3.5, monitor Transaminitis, monitor 09/18/2024 -Continue management as per H&P. ? Replete potassium ? Procalcitonin 1.59. Continue vancomycin and Zosyn. ? Discussed with family regarding potential rehab at discharge ? Continue heparin drip. Attestations 2 Medical Necessity Statement*: Patient requires hospitalization, inpatient, greater than 2 midnights, for right-sided pneumonia, sepsis, acute hypoxic respiratory failure, NSTEMI, CHF exacerbation systolic Diagnoses Pulmonary hypertension I27.20 Chronic systolic congestive heart failure I50.22 Heart failure type: systolic Heart failure chronicity: chronic Severe tricuspid regurgitation I07.1 Atherosclerosis of [place] coronary artery of [place] heart without angina pectoris I25.10 Coronary Disease-Associated Artery/Lesion type: [place] artery Sepsis with acute hypoxic respiratory failure A41.9; R65.20; J96.01 Pneumonia J18.9 Acute on chronic hypoxic respiratory failure J96.21 Systolic CHF, acute I50.21
[2024-09-18] MEDS: TRAMadol 50 mg Tablet PO ×2 (11:02→20:35)
[2024-09-18 11:14] LABS: Partial Thromboplastin Time 50.7 SECONDS (23.9-36.7)
[2024-09-18] MEDS: ipratropium-albuterol 3 mL Neb INHALATION ×3 (12:35→19:52)
[2024-09-18] MEDS: VANCOMYCIN ADD-Vantage 1,000 MG in 0.9% NaCl ADD-Vantage 250 ML 250 MG IV (16:36)
[2024-09-18 18:41] LABS: Partial Thromboplastin Time 67.5 SECONDS (23.9-36.7)
[2024-09-18] MEDS: budesonide 0.5 mg/2 mL Neb INHALATION (19:52)
[2024-09-18] MEDS: pantoprazole 40 mg SDV IVP (20:08)
[2024-09-18] MEDS: atorvastatin 40 mg Tablet PO (20:36)
[2024-09-19] VITALS (33 sets, daily range): BP systolic 83–117; BP diastolic 40–68; PULSE 82–118; RESP 16–32; TEMP 36.5–37.3; O2SAT 86–100
[2024-09-19] MEDS: acetaminophen 325 mg Tablet 650 MG PO ×3 (01:13→20:54)
--- NOTE | 2024-09-19 01:27 | PC.NURSE ---
Heparin protocol delayed by difficulty in obtaining blood samples.
[2024-09-19] MEDS: morphine 4 mg/mL SDV 1 mL 2 MG IVP ×2 (02:01→22:22)
[2024-09-19 03:34] LABS: Partial Thromboplastin Time 92.2 SECONDS (23.9-36.7)
[2024-09-19] MEDS: ipratropium-albuterol 3 mL Neb INHALATION ×4 (08:33→20:27)
[2024-09-19] MEDS: budesonide 0.5 mg/2 mL Neb INHALATION ×2 (08:33→20:27)
[2024-09-19] MEDS: FUROsemide 10 mg/mL SDV 4mL 40 MG IVP ×2 (08:56→20:17)
[2024-09-19] MEDS: meropenem 500 mg SDV IVP ×2 (08:59→20:17)
[2024-09-19] MEDS: water for injection-sterile 10 ML 1000 ML (09:00)
[2024-09-19] MEDS: clopidogrel 75 mg Tablet PO (09:00)
[2024-09-19] MEDS: VANCOMYCIN ADD-Vantage 1,000 MG in 0.9% NaCl ADD-Vantage 250 ML 250 MG IV (09:00)
[2024-09-19] MEDS: predniSONE 20 mg Tablet 40 MG PO (09:01)
[2024-09-19 11:30] LABS: Partial Thromboplastin Time 57.2 SECONDS (23.9-36.7)
--- NOTE | 2024-09-19 13:14 | PM.PN ---
Subjective Subjective: seen this morning no acute events overnight unable to obtain labs today, patient is a difficult access have ordered picc line daughters are at bedside she is requesting hot chocolate Vitals/I&O/Wt Last Vital Signs Temp 97.9 F 09/19/24 08:00 Pulse 104 H 09/19/24 12:00 Resp 24 H 09/19/24 12:00 BP 100/58 09/19/24 12:00 Pulse Ox 93 09/19/24 12:00 O2 Del Method Nasal Cannula 09/19/24 11:25 O2 Flow Rate 3 09/19/24 11:25 09/18/24 09/19/24 09/19/24 22:59 06:59 14:59 Intake Total 588.467 / 797.517 346.933 / 1144.450 553.8 / 553.8 Output Total 2700 / 3150 Balance 588.467 / 347.517 -2353.067 / -2005.550 553.8 / 553.8 Weight last 48 hrs Weight 42.918 kg Weight 43.5 kg Weight 43.5 kg Weight 43.5 kg Weight 43.091 kg Physical Exam Const: COMMON NORMALS: patient oriented x3 GENERAL APPEARANCE: ill appearing and frail appearing NUTRITIONAL APPEARANCE: cachectic Eye: COMMON NORMALS: Equal, round and reactive pupils present PUPIL: Yes Equal, round and reactive pupils present Neck/C-Spine: COMMON NORMALS: no JVD Resp: EFFORT & INSPECTION: Yes tachypneic, Yes respiratory distress, Yes retractions and Yes uses accessory muscles AUSCULTATION: crackles and wheezes Cardio: COMMON NORMALS: no JVD, regular rate, regular rhythm, S1 normal heart sound present and S2 normal heart sound present RATE: regular rate and tachycardic RHYTHM: regular rhythm HEART SOUNDS: S1 normal heart sound present and S2 normal heart sound present GI: COMMON NORMALS: Normal to inspection, nondistended, normoactive bowel sounds present, Soft to palpation, non-tender and no bruits PALPATION: Yes Soft to palpation Extremity: COMMON NORMALS: capillary refill normal and no pedal edema Neuro: COMMON NORMALS: patient oriented x3 and moves all extremities Psych: COMMON NORMALS: mental status grossly normal Urinary Catheter Management: Roche: Cath Placed During This Visit: yes Reason for Continuing Indwelling Catheter: Accurate Measurement of Urinary Output in Critically Ill Patients Urinary Catheter Date of Insertion: 09/17/24 Urinary Catheter Time of Insertion: 23:07 Data 09/18/24 03:58 09/18/24 03:58 Micro: Microbiology 09/17/24 23:15 Urine Culture - Preliminary Urine,Clean Catch 09/17/24 20:30 Blood Culture - Preliminary Blood NEGATIVE TO DATE 09/17/24 20:25 Blood Culture - Preliminary Blood NEGATIVE TO DATE 09/17/24 20:25 Gram Stain - Final Sputum - Expectorated Sputum A&P Assessment and plan (1) Pulmonary hypertension: (2) Congestive heart failure: Qualifiers: Heart failure type: systolic Heart failure chronicity: chronic Qualified Code(s): I50.22 - Chronic systolic (congestive) heart failure (3) Severe tricuspid regurgitation: (4) Atherosclerosis of coronary artery of [place] heart without angina pectoris: Qualifiers: Coronary Disease-Associated Artery/Lesion type: [place] artery Qualified Code(s): I25.10 - Atherosclerotic heart disease of [place] coronary artery without angina pectoris (5) Sepsis with acute hypoxic respiratory failure: (6) Pneumonia: (7) Acute on chronic hypoxic respiratory failure: (8) Systolic CHF, acute: Plan Acute hypoxic respiratory failure ? Secondary to right-sided pneumonia # Secondary to systolic CHF exacerbation -with underlying COPD ? Plan ? Start vancomycin ? Start meropenem ? Sputum cultures, blood cultures, LDH, beta D glucan ? Respiratory viral panel ? Lasix 40 mg IV twice daily # Continue prednisone 40 mg daily ? DuoNeb -Prednisone 40 mg daily ? Currently on nonrebreather, can try heated high flow, according to patient's daughters the last time she was here she could not tolerate BiPAP ? Goals of care discussion, patient does not want to have aggressive interventions, she is a DNR/DNI, confirmed with her multiple times ? Heparin drip for DVT prophylaxis Sepsis Sepsis features met, due to leukocytosis elevated Pro-Manuel, respiratory failure, right-sided pneumonia Systolic CHF exacerbation ? Echocardiogram during her hospitalization showed reduced ejection fraction with cardiomyopathy Concerns for left ventricular apical thrombus Continue heparin drip NSTEMI ? Serial EKGs, sore troponins, telemetry monitoring ? Continue Plavix, statin, heparin drip -Monitor for chest pain MARLO, monitor creatinine Elevated lactic acid 3.5, monitor Transaminitis, monitor 09/19/2024 -Continue management as per H&P. ? check labs today, check bmp, cbc mag this am ? Procalcitonin 1.59 at admission, will trend. Continue vancomycin and Zosyn. ? Discussed with family regarding potential rehab at discharge ? Continue heparin drip for left apical thrombus suspicion. Attestations Medical Necessity Statement*: Patient requires hospitalization, inpatient, greater than 2 midnights, for right-sided pneumonia, sepsis, acute hypoxic respiratory failure, NSTEMI, CHF exacerbation systolic Diagnoses Pulmonary hypertension I27.20 Chronic systolic congestive heart failure I50.22 Heart failure type: systolic Heart failure chronicity: chronic Severe tricuspid regurgitation I07.1 Atherosclerosis of [place] coronary artery of [place] heart without angina pectoris I25.10 Coronary Disease-Associated Artery/Lesion type: [place] artery Sepsis with acute hypoxic respiratory failure A41.9; R65.20; J96.01 Pneumonia J18.9 Acute on chronic hypoxic respiratory failure J96.21 Systolic CHF, acute I50.21
[2024-09-19] MEDS: heparin drip 25,000 UNIT/500 ML PREMIX 12 UNIT IV (14:12)
[2024-09-19] MEDS: atorvastatin 40 mg Tablet PO (20:17)
[2024-09-19] MEDS: pantoprazole 40 mg SDV IVP (20:17)
[2024-09-19] MEDS: TRAMadol 50 mg Tablet PO (20:53)
[2024-09-20] VITALS (30 sets, daily range): BP systolic 78–112; BP diastolic 45–74; PULSE 83–118; RESP 17–32; TEMP 36.2–36.9; O2SAT 73–100; BMI 17.3
[2024-09-20] MEDS: VANCOMYCIN ADD-Vantage 1,000 MG in 0.9% NaCl ADD-Vantage 250 ML 250 MG IV (03:34)
[2024-09-20 03:45] LABS: Basophils % 0.1 %; Eosinophils # 0.1 10^3/uL (0.0-0.8); Eosinophils % 0.4 %; Hematocrit 25.7 % (36-47); Lymphocytes # 1.4 10^3/uL (0.8-4.8); Lymphocytes % 8.5 %; Mean Corpuscular HGB Conc 32.3 g/dL (30-55); Mean Corpuscular Volume 99.2 fl (85-98); Mean Platelet Volume 10.1 fL (7.4-10.4); Monocytes # 0.9 10^3/uL (0.2-0.9); Monocytes % 5.4 %; Neutrophils # 14.08 10^3/uL (1.8-7.7); Neutrophils % 85.1 %; Nucleated Red Blood Cells % 0 %; Platelet Count 248 10^3/cmm (157-399); Red Blood Count 2.59 10^6/uL (3.85-5.65); Red Cell Distribution Width 14.9 % (12.1-15.1); White Blood Count 16.55 10^3/uL (3.29-11.43)
[2024-09-20 04:13] LABS: Blood Urea Nitrogen 26 mg/dL (8-23); Calcium 9.1 mg/dL (8.5-10.5); Carbon Dioxide 31 mmol/L (22-29); Chloride 96 mmol/L (98-107); Creatinine Clr Calc Pharmacy 31.2224; Glucose 128 mg/dL (65-115); Magnesium 1.9 mg/dL (1.7-2.3); Osmolality Calculated 292 mOsm/kg (285-295); Sodium 138 mmol/L (136-145)
[2024-09-20] MEDS: budesonide 0.5 mg/2 mL Neb INHALATION ×2 (08:18→21:09)
[2024-09-20] MEDS: ipratropium-albuterol 3 mL Neb INHALATION ×4 (08:18→21:09)
[2024-09-20] MEDS: clopidogrel 75 mg Tablet PO (08:53)
[2024-09-20] MEDS: meropenem 500 mg SDV IVP ×2 (08:53→10:39)
[2024-09-20] MEDS: FUROsemide 10 mg/mL SDV 4mL 40 MG IVP ×2 (08:53→20:22)
[2024-09-20] MEDS: predniSONE 20 mg Tablet 40 MG PO (08:53)
--- NOTE | 2024-09-20 09:45 | P.PN_ITS ---
Subjective 2 Subjective: Patient was seen in the room w/ her daughter Marilee at bedside. The patient ate lunch, and per daughter, this lunch and yesterday's dinner of chicken fried steak are the best that she has eaten thus far. She denies any f/c, dizziness, light headedness, CP, palpitations, SOB, abdominal pian, n/v. She is on 2L NC O2. She states that she feels a lot better, 5 to 8/10 compared to prior. SHe tells me that she wants to start getting out of bed and moving around. She remains tachycardic w/ some tachypnea of high 20s on the telemonitor. Vitals/I&O/Wt Last Vital Signs Temp 97.2 F L 09/20/24 00:00 Pulse 92 09/20/24 08:20 Resp 18 09/20/24 08:20 BP 108/67 09/20/24 08:00 Pulse Ox 96 09/20/24 08:20 O2 Del Method Nasal Cannula 09/20/24 08:20 O2 Flow Rate 2 09/20/24 08:20 09/19/24 09/20/24 09/20/24 22:59 06:59 14:59 Intake Total 671.6 / 1426.35 370 / 1796.35 Output Total 1400 / 1400 1070 / 2470 475 / 475 Balance -728.4 / 26.35 -700 / -673.65 -475 / -475 Weight last 48 hrs Weight 42.918 kg Physical Exam 2 Const: GENERAL APPEARANCE: cooperative and comfortable NUTRITIONAL APPEARANCE: cachectic ORIENTATION/CONSCIOUSNESS: Yes awake, Yes oriented to person, Yes oriented to place and Yes oriented to time HENMT: COMMON NORMALS: normocephalic, atraumatic, external ears normal and Normal external nose present HEAD & SCALP: normocephalic and atraumatic N OSE: Normal external nose present EXTERNAL EAR: Yes external ears normal M OUTH: Normal oral and palatal mucosa present THROAT: posterior oropharynx normal Eye: COMMON NORMALS: Equal, round and reactive pupils present, EOMs intact bilaterally, conjunctivae normal and no scleral icterus CONJUNCTIVA: Yes conjunctivae normal PUPIL: Yes Equal, round and reactive pupils present Neck/C-Spine: COMMON NORMALS: full ROM, no lymphadenopathy, Thyroid normal and No carotid bruits THYROID: Thyroid normal Lymph: OTHER: No cervical or supraclavicular LAD Resp: OTHER: coarse inspiratory crackles throughout the R lung collazo. Coarse inspiratory crackles in the L. lower lung field Cardio: OTHER: tachycardia. No m/r/g or clicks appreciated. 2+ radial and DP pulses GI: OTHER: BS+, NT, ND, no guarding, rigidity or rebound tenderness. No hepatosplenomegaly. Extremity: GENERAL: No clubbing, No cyanosis and No edema Neuro: SENSORIUM/ORIENTATION: Yes oriented to person, Yes oriented to place and Yes oriented to time CRANIAL NERVES: Yes CN normal except as noted Psych: COMMON NORMALS: Normal thought process present and speech normal A PPEARANCE: Yes grossly normal ATTITUDE: Yes calm and Yes engaged A CTIVITY/MOTOR BEHAVIOR: Yes appropriate eye contact SPEECH: Yes normal speech MOOD & AFFECT: Yes euthymic mood THOUGHT PROCESS: Normal thought process present THOUGHT CONTENT: Yes Normal thought content present A TTENTION/CONCENTRATION: Yes attention grossly intact MEMORY/COGNITION: Yes memory grossly intact Skin: COMMON NORMALS: no rashes or lesions noted GENERAL SKIN EXAM: no rashes or lesions noted Urinary Catheter Management: Roche: Cath Placed During This Visit: yes Reason for Continuing Indwelling Catheter: Accurate Measurement of Urinary Output in Critically Ill Patients Urinary Catheter Date of Insertion: 09/17/24 Urinary Catheter Time of Insertion: 23:07 Data 09/20/24 03:37 09/20/24 03:37 Micro: Microbiology 09/17/24 20:25 Gram Stain - Final Sputum - Expectorated Sputum Sputum Culture - Preliminary Gram Negative Rods 09/17/24 23:15 Urine Culture - Preliminary Urine,Clean Catch A&P Assessment and plan (1) Systolic CHF, acute: (2) Severe tricuspid regurgitation: (3) COPD with acute exacerbation: (4) Acute on chronic hypoxic respiratory failure: (5) Pulmonary hypertension: (6) Pneumonia due to gram-negative bacteria: Plan Ms. Hernandes is an 84yo woman w/ combined pulmonary Emphysema w/ pulmonary fibrosis, chronic hypoxic respiratory failure on continuous 3L at home, chronic HFrEF w/ severe tricuspid regurg and possible LV thrombus, CAD not a candidate for CABG, ischemic cardiomyopathy, Paroxysmal Afib who was readmitted on 09/17/2024 for Acute on chronic hypoxic respiratory failure and mental status changes after being d/c'ed for Sepsis due to a RLL pneumonia, cardiogenic vs septic shock, new onset Afib, and acute CHF exacerbation earlier in the day. In the ED, her CXR showed b/l diffuse interstitial infiltrates vs edema w/ dense consolidation in the R. lower lobe and a slight increase in R. pleural effusion. Her CTA chest was negative for a PE, but showed b/l R>L pneumonia b/l honeycombing and interstitial fibrotic changes, scattered prominent meidastinal LN, and chronic compression fracture of T7. She was admitted to the ICU and started on Vanc/Meropenem. #Acute on chronic Hypoxic respiratory failure: - Due to Multiple Etiologies including R. sided pneumonia, acute on chronic HFrEF, COPD exacerbation - Currently on 2L #Acute COPD & Pulmonary fibrosis exacerbation #b/l GNR pneumonia - Continue Vanc/Meropenem. Increased Meropenem from 500mg q12h to 1g q12h on 09/20/2024 - 09/17 BCx neg x 3days. - 09/17 Sputum cx growing GNR# Possible COPD exacerbation #Lactic acidosis: Improved # Acute on chronic HFrEF: Continue Lasix #Possible LV thrombus - On Heparin gtt - d/c'ed. Switch to Lovenox 40mg subq q12h starting on 09/20. #NSTEMI - I think that this is really NSTEMI type II (demand ischemia) #CAD, not a candidate for a CABG - On Plavix and Heparin gtt at this time. D/c'ed Heparin gtt. On Lovenox 40mg q12h #Paroxysmal Afib: On Eliquis at home. On Lovenox 40mg q12h #Transaminitis: Possibly congestive Hepatopathy. F/u repeat Hepatic panel today. #Hypokalemia: 40mEQ KCl IVPB x 1 administered. F/u Phosphorus labs. #MARLO: THere is no indication that she has had an MARLO since admission. #Likely Osteoporosis: Chronic compression fracture of T7 and hx of vertebroplasty in T12 #Severe Malnutrition: Consult doctor of podiatric medicine for supplement recs. Code status: DNR/DNI Dispo: I would like to see her CXR before transitioning to step down. Attestations 2 Medical Necessity Statement*: The patient remains hospitalized for Acute on chronic hypoxic respiratory failure and bilateral pneumonia whose sputum cx are still pending. Coding Level of Care Code 49224 Diagnoses Systolic CHF, acute I50.21 Severe tricuspid regurgitation I07.1 COPD with acute exacerbation J44.1 Acute on chronic hypoxic respiratory failure J96.21 Pulmonary hypertension I27.20 Pneumonia due to gram-negative bacteria J15.69
[2024-09-20] MEDS: water for injection-sterile 10 ML 1000 ML ×3 (09:50→10:43)
[2024-09-20] MEDS: lidocaine 1% 5 ML in potassium chloride premix 100 ML 26.25 ML IV (10:34)
[2024-09-20 10:50] LABS: Alanine Aminotransferase 26 U/L (0-33); Aspartate Amino Transferase 27 U/L (0-32); Gamma Glutamyl Transferase 46 U/L (5-36); Lactate Dehydrogenase 213 U/L (135-214); NT Pro B Type Natriuretic Pept 32511 pg/mL (0-450)
[2024-09-20 13:19] LABS: Phosphorus 2.2 mg/dL (2.5-4.5)
[2024-09-20] MEDS: acetaminophen 325 mg Tablet 650 MG PO ×2 (14:11→17:41)
[2024-09-20] MEDS: enoxaparin 40 mg/0.4 mL Syringe SUBCUT (20:22)
[2024-09-20] MEDS: meropenem 1,000 mg SDV 1000 MG IVP (20:22)
[2024-09-20] MEDS: pantoprazole 40 mg SDV IVP (20:22)
[2024-09-20] MEDS: atorvastatin 40 mg Tablet PO (20:22)
[2024-09-20 21:16] LABS: Vancomycin Trough 38.4 ug/mL (10-15)
--- NOTE | 2024-09-20 21:36 | PC.NURSE ---
Received critical vanc trough results. Contacted pharmacy and made aware for dosing, contacted Dr. Rivers, dose held per physician and pharmacy instruction.
[2024-09-21] VITALS (32 sets, daily range): BP systolic 80–108; BP diastolic 46–66; PULSE 84–127; RESP 13–35; TEMP 36.5–37.1; O2SAT 81–98
[2024-09-21] MEDS: morphine 4 mg/mL SDV 1 mL 2 MG IVP (01:40)
[2024-09-21 07:04] LABS: Basophils % 0.1 %; Eosinophils # 0.1 10^3/uL (0.0-0.8); Eosinophils % 0.5 %; Hematocrit 28.3 % (36-47); Lymphocytes # 1.5 10^3/uL (0.8-4.8); Lymphocytes % 10.1 %; Mean Corpuscular HGB Conc 31.4 g/dL (30-55); Mean Corpuscular Hemoglobin 31.9 pg (27-33); Mean Corpuscular Volume 101.4 fl (85-98); Mean Platelet Volume 10.4 fL (7.4-10.4); Monocytes # 1.1 10^3/uL (0.2-0.9); Monocytes % 7.1 %; Neutrophils # 12.12 10^3/uL (1.8-7.7); Neutrophils % 81.6 %; Nucleated Red Blood Cells % 0 %; Platelet Count 307 10^3/cmm (157-399); Red Blood Count 2.79 10^6/uL (3.85-5.65); White Blood Count 14.85 10^3/uL (3.29-11.43)
[2024-09-21 07:26] LABS: Alanine Aminotransferase 30 U/L (0-33); Albumin Level 2.9 g/dL (3.5-5.2); Alkaline Phosphatase 66 U/L (35-105); Anion Gap 15.1 (5-19); Aspartate Amino Transferase 33 U/L (0-32); Blood Urea Nitrogen 25 mg/dL (8-23); Calcium 9.6 mg/dL (8.5-10.5); Carbon Dioxide 33 mmol/L (22-29); Chloride 94 mmol/L (98-107); Creatinine Clr Calc Pharmacy 26.4444; Globulin 3.3 g/dL (1.3-4.6); Glucose 96 mg/dL (65-115); Magnesium 2.1 mg/dL (1.7-2.3); Osmolality Calculated 292 mOsm/kg (285-295); Phosphorus 2.8 mg/dL (2.5-4.5); Potassium 3.1 mmol/L (3.5-5.1); Sodium 139 mmol/L (136-145); Total Bilirubin 0.6 mg/dL (0.15-1.2); Total Protein 6.2 g/dL (6.6-8.7)
[2024-09-21] MEDS: budesonide 0.5 mg/2 mL Neb INHALATION ×2 (08:13→22:01)
[2024-09-21] MEDS: ipratropium-albuterol 3 mL Neb INHALATION ×4 (08:13→22:01)
[2024-09-21] MEDS: clopidogrel 75 mg Tablet PO (08:25)
[2024-09-21] MEDS: FUROsemide 10 mg/mL SDV 4mL 40 MG IVP ×2 (08:25→20:20)
[2024-09-21] MEDS: meropenem 1,000 mg SDV 1000 MG IVP ×2 (08:25→20:19)
[2024-09-21] MEDS: predniSONE 20 mg Tablet 40 MG PO (08:26)
[2024-09-21] MEDS: enoxaparin 40 mg/0.4 mL Syringe SUBCUT (08:26)
[2024-09-21] MEDS: amiodarone 150 MG/100 ML PREMIX 400 MG IV (12:37)
[2024-09-21 13:26] LABS: Vancomycin Random 35.3 ug/mL (20.0-40.0)
--- NOTE | 2024-09-21 13:33 | PC.SOCIAL ---
IMM Updated Updated pt on IMM. No questions voiced. Provided pt a copy. Initialed, dated, & timed a copy & placed in chart.
[2024-09-21] MEDS: TRAMadol 50 mg Tablet PO (14:00)
[2024-09-21 15:17] LABS: Adenovirus Not Detected (NOT DETECT); Chlamydia Pneumoniae Not Detected (NOT DETECT); Coronavirus 229E,HKU1,NL63,OC4 Not Detected (NOT DETECT); Human Metapneumovirus Not Detected (NOT DETECT); Human Rhinovirus/Enterovirus Not Detected (NOT DETECT); Influenza A Not Detected (NOT DETECT); Influenza A H1 Not Detected (NOT DETECT); Influenza A H1-2009 Not Detected (NOT DETECT); Influenza A H3 Not Detected (NOT DETECT); Influenza B Not Detected (NOT DETECT); Mycoplasma Pneumoniae Not Detected (NOT DETECT); Parainfluenza Virus Type 1 Not Detected (NOT DETECT); Parainfluenza Virus Type 2 Not Detected (NOT DETECT); Parainfluenza Virus Type 3 Not Detected (NOT DETECT); Parainfluenza Virus Type 4 Not Detected (NOT DETECT); Respiratory Syncytial Virus A Not Detected (NOT DETECT); Respiratory Syncytial Virus B Not Detected (NOT DETECT); SARS-COV-2 Not Detected (NOT DETECT)
--- NOTE | 2024-09-21 17:18 | PC.NURSE ---
Patient denies bedside alfredito, requests recliner. Unable to locate recliner in unit, warehouse distribution manager contacted to locate one.
--- NOTE | 2024-09-21 17:57 | P.PN_ITS ---
Subjective 2 Subjective: A fib with RVR, c/o genralized weakenss Medications: Reviewed: Yes Vitals/I&O/Wt Last Vital Signs Temp 98.6 F 09/21/24 12:00 Pulse 115 H 09/21/24 16:00 Resp 25 H 09/21/24 16:00 BP 86/60 09/21/24 16:00 Pulse Ox 91 09/21/24 16:00 O2 Del Method Nasal Cannula 09/21/24 16:00 O2 Flow Rate 2 09/21/24 15:17 09/21/24 09/21/24 09/21/24 06:59 14:59 22:59 Intake Total 500 / 500 Output Total 1500 / 3775 1850 / 1850 Balance -1500 / -2740 -1350 / -1350 Weight last 48 hrs Weight 40 kg Weight 42.918 kg Physical Exam 2 Urinary Catheter Management: Roche: Cath Placed During This Visit: yes Reason for Continuing Indwelling Catheter: Accurate Measurement of Urinary Output in Critically Ill Patients Urinary Catheter Date of Insertion: 09/17/24 Urinary Catheter Time of Insertion: 23:07 Data 09/22/24 05:26 09/22/24 05:26 Micro: Microbiology 09/17/24 20:25 Gram Stain - Final Sputum - Expectorated Sputum Sputum Culture - Final Pseudomonas aeruginosa A&P Assessment and plan (1) Pulmonary hypertension: (2) Congestive heart failure: Qualifiers: Heart failure type: systolic Heart failure chronicity: chronic Qualified Code(s): I50.22 - Chronic systolic (congestive) heart failure (3) Severe tricuspid regurgitation: (4) Atherosclerosis of coronary artery of [place] heart without angina pectoris: Qualifiers: Coronary Disease-Associated Artery/Lesion type: [place] artery Qualified Code(s): I25.10 - Atherosclerotic heart disease of [place] coronary artery without angina pectoris (5) Sepsis with acute hypoxic respiratory failure: (6) Pneumonia: (7) Acute on chronic hypoxic respiratory failure: (8) Systolic CHF, acute: Plan Acute hypoxic respiratory failure ? Secondary to right-sided pneumonia # Secondary to systolic CHF exacerbation -with underlying COPD ? Plan ? Start vancomycin ? Start meropenem ? Sputum cultures, blood cultures, LDH, beta D glucan ? Respiratory viral panel ? Lasix 40 mg IV twice daily # Continue prednisone 40 mg daily ? DuoNeb -Prednisone 40 mg daily ? Currently on nonrebreather, can try heated high flow, according to patient's daughters the last time she was here she could not tolerate BiPAP ? Goals of care discussion, patient does not want to have aggressive interventions, she is a DNR/DNI, confirmed with her multiple times ? Heparin drip for DVT prophylaxis Sepsis Sepsis features met, due to leukocytosis elevated Pro-Manuel, respiratory failure, right-sided pneumonia Systolic CHF exacerbation ? Echocardiogram during her hospitalization showed reduced ejection fraction with cardiomyopathy Concerns for left ventricular apical thrombus Continue heparin drip NSTEMI ? Serial EKGs, sore troponins, telemetry monitoring ? Continue Plavix, statin, heparin drip -Monitor for chest pain MARLO, monitor creatinine Elevated lactic acid 3.5, monitor Transaminitis, monitor 09/19/2024 -Continue management as per H&P. ? check labs today, check bmp, cbc mag this am ? Procalcitonin 1.59 at admission, will trend. Continue vancomycin and Zosyn. ? Discussed with family regarding potential rehab at discharge ? Continue heparin drip for left apical thrombus suspicion. 09/21/24: Ad amiodarone 400mg BID for Hr CONTROL, HR today 120s in A fib, sputum cx with Pseudomonas aeruginosa. No oral options. Continue meropenem, plan to treat with total 7 day course of abx. Family reports patient's baseline pressure to be systolic 80s and 90s. Continue iv lasix 40mg iv q12h. monitor creatinine and urine output Attestations 2 Medical Necessity Statement*: continued admission for iv abx, iv diuersis Coding Level of Care Code Acute Code for [facility] Fwd Diagnoses Pulmonary hypertension I27.20 Chronic systolic congestive heart failure I50.22 Heart failure type: systolic Heart failure chronicity: chronic Severe tricuspid regurgitation I07.1 Atherosclerosis of [place] coronary artery of [place] heart without angina pectoris I25.10 Coronary Disease-Associated Artery/Lesion type: [place] artery Sepsis with acute hypoxic respiratory failure A41.9; R65.20; J96.01 Pneumonia J18.9 Acute on chronic hypoxic respiratory failure J96.21 Systolic CHF, acute I50.21
[2024-09-21] MEDS: amiodarone 200 mg Tablet 400 MG PO (18:21)
[2024-09-21] MEDS: pantoprazole 40 mg SDV IVP (20:20)
[2024-09-21] MEDS: apixaban 5 mg Tablet PO (20:20)
[2024-09-21] MEDS: atorvastatin 40 mg Tablet PO (20:20)
[2024-09-21] MEDS: acetaminophen 325 mg Tablet 650 MG PO (21:56)
[2024-09-22] VITALS (24 sets, daily range): BP systolic 81–107; BP diastolic 48–66; PULSE 70–109; RESP 15–35; TEMP 36.2–36.6; O2SAT 89–99
[2024-09-22 05:41] LABS: Basophils % 0.1 %; Eosinophils % 0.3 %; Hematocrit 29.5 % (36-47); Lymphocytes # 1.8 10^3/uL (0.8-4.8); Lymphocytes % 13.5 %; Mean Corpuscular HGB Conc 31.9 g/dL (30-55); Mean Corpuscular Hemoglobin 31.5 pg (27-33); Mean Platelet Volume 10.4 fL (7.4-10.4); Monocytes # 1.1 10^3/uL (0.2-0.9); Monocytes % 8.2 %; Neutrophils # 10.31 10^3/uL (1.8-7.7); Neutrophils % 77.2 %; Nucleated Red Blood Cells % 0 %; Platelet Count 348 10^3/cmm (157-399); Red Blood Count 2.98 10^6/uL (3.85-5.65); Red Cell Distribution Width 14.8 % (12.1-15.1); White Blood Count 13.35 10^3/uL (3.29-11.43)
[2024-09-22 06:02] LABS: Alanine Aminotransferase 32 U/L (0-33); Albumin Level 3.2 g/dL (3.5-5.2); Alkaline Phosphatase 70 U/L (35-105); Anion Gap 14.3 (5-19); Aspartate Amino Transferase 29 U/L (0-32); Blood Urea Nitrogen 34 mg/dL (8-23); Carbon Dioxide 38 mmol/L (22-29); Chloride 90 mmol/L (98-107); Creatinine Clr Calc Pharmacy 21.7616; Globulin 3.5 g/dL (1.3-4.6); Glucose 98 mg/dL (65-115); Magnesium 2.2 mg/dL (1.7-2.3); Osmolality Calculated 296 mOsm/kg (285-295); Phosphorus 3.7 mg/dL (2.5-4.5); Potassium 3.3 mmol/L (3.5-5.1); Sodium 139 mmol/L (136-145); Total Bilirubin 0.6 mg/dL (0.15-1.2); Total Protein 6.7 g/dL (6.6-8.7)
[2024-09-22] MEDS: meropenem 1,000 mg SDV 1000 MG IVP ×2 (08:39→21:00)
[2024-09-22] MEDS: FUROsemide 10 mg/mL SDV 4mL 40 MG IVP (08:39)
[2024-09-22] MEDS: clopidogrel 75 mg Tablet PO (08:43)
[2024-09-22] MEDS: apixaban 5 mg Tablet PO ×2 (08:44→21:01)
[2024-09-22] MEDS: amiodarone 200 mg Tablet 400 MG PO ×2 (08:44→17:17)
[2024-09-22] MEDS: predniSONE 20 mg Tablet 40 MG PO (08:44)
[2024-09-22] MEDS: ipratropium-albuterol 3 mL Neb INHALATION ×4 (08:51→20:28)
[2024-09-22] MEDS: budesonide 0.5 mg/2 mL Neb INHALATION ×2 (08:52→20:28)
[2024-09-22] MEDS: acetaminophen 325 mg Tablet 650 MG PO ×2 (10:38→23:10)
--- NOTE | 2024-09-22 12:55 | P.PN_ITS ---
Subjective 2 Subjective: Heart rate is better controlled today since initiating amiodarone. Ranging mostly between 80-90. Blood pressure slightly better today. Consistently MAP is more than 65. Medications: Reviewed: Yes Vitals/I&O/Wt Last Vital Signs Temp 97.8 F 09/22/24 04:00 Pulse 90 09/22/24 08:50 Resp 16 09/22/24 08:50 BP 89/50 09/22/24 05:00 Pulse Ox 94 09/22/24 08:50 O2 Del Method Nasal Cannula 09/22/24 08:50 O2 Flow Rate 2 09/22/24 08:50 09/21/24 09/22/24 09/22/24 22:59 06:59 14:59 Intake Total 480 / 980 240 / 1220 250 / 250 Output Total 1200 / 3050 700 / 700 Balance 480 / -870 -960 / -1830 -450 / -450 Weight last 48 hrs Weight 39.5 kg Weight 40 kg Physical Exam 2 Narrative: General: No acute distress, AO x3 HEENT: PERRLA, pupils bilaterally equal and reactive, pallors not present Chest: Normal vesicular breath sounds, no added sounds, equal good air entry bilaterally CVS: S1-S2 regular, no murmurs, no tachycardia, no gallops, no rubs Abdomen: Soft, nontender, no organomegaly, bowel sounds present Neuro: No focal deficits, no facial deformity, AO x3, power 5/5 in all limbs , Chronically ill-appearing frail lady Urinary Catheter Management: Roche: Cath Placed During This Visit: yes Reason for Continuing Indwelling Catheter: Accurate Measurement of Urinary Output in Critically Ill Patients Urinary Catheter Date of Insertion: 09/17/24 Urinary Catheter Time of Insertion: 23:07 Data 09/22/24 05:26 09/22/24 05:26 A&P Assessment and plan (1) Pulmonary hypertension: (2) Congestive heart failure: Qualifiers: Heart failure type: systolic Heart failure chronicity: chronic Qualified Code(s): I50.22 - Chronic systolic (congestive) heart failure (3) Severe tricuspid regurgitation: (4) Atherosclerosis of coronary artery of [place] heart without angina pectoris: Qualifiers: Coronary Disease-Associated Artery/Lesion type: [place] artery Qualified Code(s): I25.10 - Atherosclerotic heart disease of [place] coronary artery without angina pectoris (5) Sepsis with acute hypoxic respiratory failure: (6) Pneumonia: (7) Acute on chronic hypoxic respiratory failure: (8) Systolic CHF, acute: Plan Acute hypoxic respiratory failure ? Secondary to right-sided pneumonia # Secondary to systolic CHF exacerbation -with underlying COPD ? Plan ? Start vancomycin ? Start meropenem ? Sputum cultures, blood cultures, LDH, beta D glucan ? Respiratory viral panel ? Lasix 40 mg IV twice daily # Continue prednisone 40 mg daily ? DuoNeb -Prednisone 40 mg daily ? Currently on nonrebreather, can try heated high flow, according to patient's daughters the last time she was here she could not tolerate BiPAP ? Goals of care discussion, patient does not want to have aggressive interventions, she is a DNR/DNI, confirmed with her multiple times ? Heparin drip for DVT prophylaxis Sepsis Sepsis features met, due to leukocytosis elevated Pro-Manuel, respiratory failure, right-sided pneumonia Systolic CHF exacerbation ? Echocardiogram during her hospitalization showed reduced ejection fraction with cardiomyopathy Concerns for left ventricular apical thrombus Continue heparin drip NSTEMI ? Serial EKGs, sore troponins, telemetry monitoring ? Continue Plavix, statin, heparin drip -Monitor for chest pain MARLO, monitor creatinine Elevated lactic acid 3.5, monitor Transaminitis, monitor 09/19/2024 -Continue management as per H&P. ? check labs today, check bmp, cbc mag this am ? Procalcitonin 1.59 at admission, will trend. Continue vancomycin and Zosyn. ? Discussed with family regarding potential rehab at discharge ? Continue heparin drip for left apical thrombus suspicion. 09/21/24: Ad amiodarone 400mg BID for Hr CONTROL, HR today 120s in A fib, sputum cx with Pseudomonas aeruginosa. No oral options. Continue meropenem, plan to treat with total 7 day course of abx. Family reports patient's baseline pressure to be systolic 80s and 90s. Continue iv lasix 40mg iv q12h. monitor creatinine and urine output 09/22/2024 Sputum culture from 09/17 showing Pseudomonas aeruginosa. Resistant to oral antibiotics including fluoroquinolones. Will need to continue meropenem. Aim for treatment of total 7 days for pneumonia. (09/17/24-09/23/24). There are no other oral alternatives. Patient has A-fib with RVR. Currently heart rate is better controlled after starting amiodarone 400 mg p.o. twice daily. We will continue the same. Unable to use beta- blockers or calcium channel blockers due to hypotension. Blood pressure appears to be doing better today with control of heart rate. Constitutionally likely has low blood pressure, family reports mostly systolic blood pressures range in the 80s to 90s. She may be at baseline. From 09/14/2024, LV function appears to be moderate to severely reduced. Exact EF was unable to be determined due to poor apical windows. Possibility of LV thrombus was brought up for which patient is on anticoagulation with Eliquis. Acute on chronic heart failure exacerbation, patient is currently on Lasix 40 mg IV every 12 hours. Creatinine currently at 1.2. Overall net -9 L since admission. Cut back to Lasix 40 mg p.o. twice daily. transfer from ICU to CSU. Attestations 2 Medical Necessity Statement*: continued need for iv abx , titrate diuretics and amiodarone Coding Level of Care Code Acute Code for [facility] Fwd Diagnoses Pulmonary hypertension I27.20 Chronic systolic congestive heart failure I50.22 Heart failure type: systolic Heart failure chronicity: chronic Severe tricuspid regurgitation I07.1 Atherosclerosis of [place] coronary artery of [place] heart without angina pectoris I25.10 Coronary Disease-Associated Artery/Lesion type: [place] artery Sepsis with acute hypoxic respiratory failure A41.9; R65.20; J96.01 Pneumonia J18.9 Acute on chronic hypoxic respiratory failure J96.21 Systolic CHF, acute I50.21
[2024-09-22] MEDS: potassium chloride ER 20 mEq Tablet PO (13:17)
[2024-09-22] MEDS: LORazepam 1 mg Tablet 0.5 MG PO (13:17)
--- NOTE | 2024-09-22 17:18 | PC.NURSE ---
Blood pressure 89/53, notified Dr. Jameson, order given to change lasix time to 2100 tonight and to give amiodarone now.
[2024-09-22] MEDS: FUROsemide 40 mg Tablet PO (21:01)
[2024-09-22] MEDS: atorvastatin 40 mg Tablet PO (21:01)
[2024-09-22] MEDS: trazodone 50 mg Tablet PO (21:12)
[2024-09-23] VITALS (15 sets, daily range): BP systolic 81–113; BP diastolic 40–67; PULSE 59–100; RESP 15–28; TEMP 36.4–36.8; O2SAT 84–100; BMI 16.6
[2024-09-23 05:25] LABS: Basophils % 0.1 %; Eosinophils # 0.1 10^3/uL (0.0-0.8); Eosinophils % 0.6 %; Hematocrit 28.1 % (36-47); Lymphocytes # 1.5 10^3/uL (0.8-4.8); Lymphocytes % 10.8 %; Mean Corpuscular Hemoglobin 31.1 pg (27-33); Mean Corpuscular Volume 97.2 fl (85-98); Mean Platelet Volume 10.5 fL (7.4-10.4); Monocytes % 7.2 %; Neutrophils # 11.46 10^3/uL (1.8-7.7); Neutrophils % 80.7 %; Nucleated Red Blood Cells % 0 %; Platelet Count 385 10^3/cmm (157-399); Red Blood Count 2.89 10^6/uL (3.85-5.65); Red Cell Distribution Width 14.6 % (12.1-15.1); White Blood Count 14.21 10^3/uL (3.29-11.43)
[2024-09-23 05:45] LABS: Alanine Aminotransferase 35 U/L (0-33); Albumin Level 3.1 g/dL (3.5-5.2); Alkaline Phosphatase 71 U/L (35-105); Anion Gap 13.5 (5-19); Aspartate Amino Transferase 35 U/L (0-32); Blood Urea Nitrogen 37 mg/dL (8-23); Calcium 9.9 mg/dL (8.5-10.5); Carbon Dioxide 38 mmol/L (22-29); Chloride 91 mmol/L (98-107); Creatinine Clr Calc Pharmacy 21.7616; Globulin 3.3 g/dL (1.3-4.6); Glucose 89 mg/dL (65-115); Osmolality Calculated 296 mOsm/kg (285-295); Phosphorus 3.2 mg/dL (2.5-4.5); Potassium 3.5 mmol/L (3.5-5.1); Sodium 139 mmol/L (136-145); Total Bilirubin 0.6 mg/dL (0.15-1.2); Total Protein 6.4 g/dL (6.6-8.7)
[2024-09-23] MEDS: ipratropium-albuterol 3 mL Neb INHALATION ×2 (08:41→11:23)
[2024-09-23] MEDS: budesonide 0.5 mg/2 mL Neb INHALATION (08:41)
[2024-09-23] MEDS: meropenem 1,000 mg SDV 1000 MG IVP (08:57)
[2024-09-23] MEDS: water for injection-sterile 10 ML 1000 ML (08:58)
[2024-09-23] MEDS: amiodarone 200 mg Tablet 400 MG PO (08:59)
[2024-09-23] MEDS: clopidogrel 75 mg Tablet PO (08:59)
[2024-09-23] MEDS: predniSONE 20 mg Tablet 40 MG PO (08:59)
[2024-09-23] MEDS: pantoprazole DR 40 mg Tablet PO (09:00)
[2024-09-23] MEDS: apixaban 5 mg Tablet PO (09:01)
[2024-09-23] MEDS: potassium chloride oral liq 20 mEq/15 mL UDC PO (10:36)
--- NOTE | 2024-09-23 10:59 | PC.NURSE ---
report given and transfered to 263
--- NOTE | 2024-09-23 12:11 | PC.SOCIAL ---
IMM updated IMM dated and initialed, copy given to patient and copy placed in chart.
[2024-09-23] MEDS: acetaminophen 325 mg Tablet 650 MG PO (12:12)
--- NOTE | 2024-09-23 12:30 | PC.SOCIAL ---
IMM updated IMM dated and initialed, copy given to patient and copy placed in chart.
--- NOTE | 2024-09-23 15:18 | PC.NURSE ---
Pt Refusal: Pt is refusing to wear O2 despite her oxygen saturation being 87% on room air. Pt and family educated. Dr. Jameson notified.
--- NOTE | 2024-09-23 15:46 | PC.NURSE ---
Pt Refusal: Pt educated on new medication Dr. Jameson started for pts low BP. Pt refused medication at this time. Dr. Jameson notified.
--- NOTE | 2024-09-23 15:58 | PM.PN ---
Subjective Subjective: patient has been refusing her p.o. meds, refusing oxygen. Midodrine 10 mg 3 times daily was added for hypotension and to allow blood pressure room to enable given her Lasix, however patient has refused all interventions. She is awake alert and oriented. Medications: Reviewed: Yes Vitals/I&O/Wt Last Vital Signs Temp 98.3 F 09/23/24 15:30 Pulse 95 09/23/24 15:30 Resp 16 09/23/24 15:30 BP 81/40 09/23/24 15:30 Pulse Ox 87 L 09/23/24 15:30 O2 Del Method Room Air 09/23/24 15:30 O2 Flow Rate 2 09/23/24 11:24 09/23/24 09/23/24 09/23/24 06:59 14:59 22:59 Intake Total 350 / 350 Output Total 950 / 1800 800 / 800 Balance -950 / -1350 -450 / -450 Weight last 48 hrs Weight 41.2 kg Weight 39.5 kg Physical Exam Narrative: General: chronically ill-appearing AO x3 HEENT: PERRLA, pupils bilaterally equal and reactive, pallors not present Chest: Normal vesicular breath sounds, no added sounds, equal good air entry bilaterally CVS: S1-S2 regular, no murmurs, no tachycardia, no gallops, no rubs Abdomen: Soft, nontender, no organomegaly, bowel sounds present Neuro: No focal deficits, no facial deformity, AO x3, power 5/5 in all limbs , Chronically ill-appearing frail lady Urinary Catheter Management: Roche: Cath Placed During This Visit: yes Reason for Continuing Indwelling Catheter: Accurate Measurement of Urinary Output in Critically Ill Patients Urinary Catheter Date of Insertion: 09/17/24 Urinary Catheter Time of Insertion: 23:07 Data 09/23/24 04:53 09/23/24 04:53 Micro: Microbiology 09/17/24 20:30 Blood Culture - Final Blood NO GROWTH AFTER 5 DAYS 09/17/24 20:25 Blood Culture - Final Blood NO GROWTH AFTER 5 DAYS A&P Assessment and plan (1) Pulmonary hypertension: (2) Congestive heart failure: Qualifiers: Heart failure type: systolic Heart failure chronicity: chronic Qualified Code(s): I50.22 - Chronic systolic (congestive) heart failure (3) Severe tricuspid regurgitation: (4) Atherosclerosis of coronary artery of [place] heart without angina pectoris: Qualifiers: Coronary Disease-Associated Artery/Lesion type: [place] artery Qualified Code(s): I25.10 - Atherosclerotic heart disease of [place] coronary artery without angina pectoris (5) Sepsis with acute hypoxic respiratory failure: (6) Pneumonia: (7) Acute on chronic hypoxic respiratory failure: (8) Systolic CHF, acute: Plan Acute hypoxic respiratory failure ? Secondary to right-sided pneumonia # Secondary to systolic CHF exacerbation -with underlying COPD ? Plan ? Start vancomycin ? Start meropenem ? Sputum cultures, blood cultures, LDH, beta D glucan ? Respiratory viral panel ? Lasix 40 mg IV twice daily # Continue prednisone 40 mg daily ? DuoNeb -Prednisone 40 mg daily ? Currently on nonrebreather, can try heated high flow, according to patient's daughters the last time she was here she could not tolerate BiPAP ? Goals of care discussion, patient does not want to have aggressive interventions, she is a DNR/DNI, confirmed with her multiple times ? Heparin drip for DVT prophylaxis Sepsis Sepsis features met, due to leukocytosis elevated Pro-Manuel, respiratory failure, right-sided pneumonia Systolic CHF exacerbation ? Echocardiogram during her hospitalization showed reduced ejection fraction with cardiomyopathy Concerns for left ventricular apical thrombus Continue heparin drip NSTEMI ? Serial EKGs, sore troponins, telemetry monitoring ? Continue Plavix, statin, heparin drip -Monitor for chest pain MARLO, monitor creatinine Elevated lactic acid 3.5, monitor Transaminitis, monitor 09/19/2024 -Continue management as per H&P. ? check labs today, check bmp, cbc mag this am ? Procalcitonin 1.59 at admission, will trend. Continue vancomycin and Zosyn. ? Discussed with family regarding potential rehab at discharge ? Continue heparin drip for left apical thrombus suspicion. 09/21/24: Ad amiodarone 400mg BID for Hr CONTROL, HR today 120s in A fib, sputum cx with Pseudomonas aeruginosa. No oral options. Continue meropenem, plan to treat with total 7 day course of abx. Family reports patient's baseline pressure to be systolic 80s and 90s. Continue iv lasix 40mg iv q12h. monitor creatinine and urine output 09/22/2024 Sputum culture from 09/17 showing Pseudomonas aeruginosa. Resistant to oral antibiotics including fluoroquinolones. Will need to continue meropenem. Aim for treatment of total 7 days for pneumonia. (09/17/24-09/23/24). There are no other oral alternatives. Patient has A-fib with RVR. Currently heart rate is better controlled after starting amiodarone 400 mg p.o. twice daily. We will continue the same. Unable to use beta-blockers or calcium channel blockers due to hypotension. Blood pressure appears to be doing better today with control of heart rate. Constitutionally likely has low blood pressure, family reports mostly systolic blood pressures range in the 80s to 90s. She may be at baseline. From 09/14/2024, LV function appears to be moderate to severely reduced. Exact EF was unable to be determined due to poor apical windows. Possibility of LV thrombus was brought up for which patient is on anticoagulation with Eliquis. Acute on chronic heart failure exacerbation, patient is currently on Lasix 40 mg IV every 12 hours. Creatinine currently at 1.2. Overall net -9 L since admission. Cut back to Lasix 40 mg p.o. twice daily. transfer from ICU to CSU. 09/23/2024 Patient is currently awake alert oriented x 3. She is refusing all her medications, refusing her oxygen. Patient states that she is tired of being ill. She has significant comorbidities including heart failure, LV thrombus, A-fib, recurrent pneumonias over the past 1-1/2 years, currently admitted with Pseudomonas aeruginosa pneumonia. Activities of ADLs such as getting out of bed, moving to the commode make her extremely short of breath. Loss of her ADLs has been very distressing to her. She states that up until 1 year ago she was very active, independent and not being able to do so anymore is not how she would want to live. She has emphysema and fibrosis. She has recently been admitted until 09/17/2024 for management of heart failure, cardiomyopathy, pneumonia. Patient expresses frustration at being ill multiple times over the past year. She was previously also admitted here in January 2024 and September 2023. Current admission would make this her fourth admission this year. Patient states that she is extremely tired and at this point in time would like nature to take its course. She does not want any interventions with regards to diuretics, oral or IV pressors, antiplatelets, anticoagulants, steroids or other medications. She would like to transition to comfort care management only. Her 2 daughters are at bedside. Her son Teja is over the phone on a family conference. In the presence of family members, patient expressed her wishes to transition to comfort care. In keeping with her known wishes, advanced age, multiple comorbidities, this seems to be appropriate transition. Going forward she is on comfort care management only. Attestations Medical Necessity Statement*: transition to comfort care management Coding Level of Care Code Acute Code for [facility] Fwd Diagnoses Pulmonary hypertension I27.20 Chronic systolic congestive heart failure I50.22 Heart failure type: systolic Heart failure chronicity: chronic Severe tricuspid regurgitation I07.1 Atherosclerosis of [place] coronary artery of [place] heart without angina pectoris I25.10 Coronary Disease-Associated Artery/Lesion type: [place] artery Sepsis with acute hypoxic respiratory failure A41.9; R65.20; J96.01 Pneumonia J18.9 Acute on chronic hypoxic respiratory failure J96.21 Systolic CHF, acute I50.21
--- NOTE | 2024-09-23 17:28 | PC.NURSE ---
Pt Refusal: Pt refused [address] Gisell aparicio.
[2024-09-23] MEDS: morphine 10 mg/0.5 mL oral liq UD SUBLINGUAL (21:13)
[2024-09-24 08:00] VITALS: BP 92/58; PULSE 100; RESP 15; TEMP 36.4
[2024-09-24] MEDS: morphine 10 mg/0.5 mL oral liq UD SUBLINGUAL ×4 (10:59→12:45)
[2024-09-24] MEDS: LORazepam 2 mg/mL oral liquid (mL) PO (12:45)
[2024-09-24 13:00] VITALS: RESP 18; O2SAT 84
[2024-09-24] MEDS: morphine 4 mg/mL SDV 1 mL IVP ×4 (13:00→14:32)
[2024-09-24 13:17] VITALS: RESP 18
[2024-09-24] MEDS: LORazepam 2 mg/mL INJ 1 mL IVP (14:32)
--- NOTE | 2024-09-24 16:00 | PC.NURSE ---
Patient passed at 1506, verified with second nurse Lesly MANJARREZ. Dr. Jameson notified, family at bedside. [facility] was called and they released patient at 1557, as she is not a candidate
--- NOTE | 2024-09-24 17:22 | P.DS_ITS ---
Discharge Providers Date of Admission: 09/17/24 21:25 Date of Discharge: September 24, 2024 Attending Provider at Admission: Andre Bunn MD Attending Provider at Discharge: Germania Jameson MD Primary Care Provider: Eber Albarran MD Diagnoses at Discharge Discharge Diagnosis (1) Pulmonary hypertension: Status: Acute (2) Congestive heart failure: Status: Acute Qualifiers: Heart failure type: systolic Heart failure chronicity: chronic Qualified Code(s): I50.22 - Chronic systolic (congestive) heart failure (3) Severe tricuspid regurgitation: Status: Acute (4) Atherosclerosis of coronary artery of yuhaaviatam heart without angina pectoris: Status: Acute Qualifiers: Coronary Disease-Associated Artery/Lesion type: yu[place]av[place] artery Qualified Code(s): I25.10 - Atherosclerotic heart disease of yuhaaviatam coronary artery without angina pectoris (5) Sepsis with acute hypoxic respiratory failure: Status: Acute (6) Pneumonia: Status: Acute (7) Acute on chronic hypoxic respiratory failure: Status: Acute (8) Systolic CHF, acute: Status: Acute Reason for Visit Reason for Visit: sob Hospital Course Hospital Course Karen Hernandes is a 84 year old female with a past medical history of pulm hypertension, severe tricuspid valve regurg, COPD, anemia, atrial fibrillation systolic CHF with low EF, low BMI, recent admitted to [facility] for sepsis related to right lower lobe pneumonia, shock, atrial fibrillation, troponin elevation, systolic CHF exacerbation, possible LV thrombus for which she is on anticoagulation. Physical Exam Urinary Catheter Management: Roche: Cath Placed During This Visit: yes Reason for Continuing Indwelling Catheter: Hospice/Comfort/Palliative Care Urinary Catheter Date of Insertion: 09/17/24 Urinary Catheter Time of Insertion: 23:07 Discharge Data Studies Completed and Pending Completed Studies During Hospitalization Category Date Time Status XR chest 1V portable [id number] Stat Exams 09/17/24 17:56 Completed Pending at discharge Category Date Time Status Fungitell Glucan Assay (Blood) Stat Lab 09/17/24 20:58 Received Radiology Impressions Chest X-Ray 09/17/24 17:56 IMPRESSION: 1. Bilateral diffuse interstitial infiltrates versus edema with dense consolidation in the right lower lobe . 2. Slight increase in right pleural effusion. Laboratory Results WBC 14.21 10^3/uL (3.29-11.43) H 09/23/24 04:53 RBC 2.89 10^6/uL (3.85-5.65) L 09/23/24 04:53 Hgb 9.00 g/dL (11.27-16.99) L 09/23/24 04:53 Hct 28.1 % (36-47) L 09/23/24 04:53 MCV 97.2 fl (85-98) 09/23/24 04:53 MCH 31.1 pg (27-33) 09/23/24 04:53 MCHC 32.0 g/dL (30-55) 09/23/24 04:53 RDW 14.6 % (12.1-15.1) 09/23/24 04:53 Plt Count 385 10^3/cmm (157-399) 09/23/24 04:53 MPV 10.5 fL (7.4-10.4) H 09/23/24 04:53 Neut % (Auto) 80.7 % 09/23/24 04:53 Lymph % (Auto) 10.8 % 09/23/24 04:53 [place] % (Auto) 7.2 % 09/23/24 04:53 Eos % (Auto) 0.6 % 09/23/24 04:53 Baso % (Auto) 0.1 % 09/23/24 04:53 Neut # (Auto) 11.46 10^3/uL (1.8-7.7) H 09/23/24 04:53 Lymph # (Auto) 1.5 10^3/uL (0.8-4.8) 09/23/24 04:53 [place] # (Auto) 1.0 10^3/uL (0.2-0.9) H 09/23/24 04:53 Eos # (Auto) 0.1 10^3/uL (0.0-0.8) 09/23/24 04:53 Baso # (Auto) 0.0 10^3/uL (0.0-0.1) 09/23/24 04:53 Nucleated RBC % (auto) 0 % 09/23/24 04:53 Nucleated RBCs # 0.0 /100WBC 09/23/24 04:53 PT 12.40 SECONDS (12.1-14.9) 09/17/24 18:05 INR 0.90 (0.8-1.2) 09/17/24 18:05 APTT 57.2 SECONDS (23.9-36.7) H 09/19/24 11:10 Specimen Type Arterial 09/17/24 17:58 Sample Site Radial, right 09/17/24 17:58 ABG pH 7.43 (7.35-7.45) 09/17/24 17:58 ABG pCO2 29.6 mmHg (35-45) L 09/17/24 17:58 ABG pO2 105.0 mmHg (80.0-100.0) H 09/17/24 17:58 ABG HCO3 19.6 mmol/L (22-26) L 09/17/24 17:58 ABG O2 Saturation 98.8 09/17/24 17:58 ABG Base Excess -3.9 mmol/L (-2.0-2.0) L 09/17/24 17:58 Alejo Test Pos 09/17/24 17:58 A-a O2 Gradient 0.8 mmHg (5-10) L 09/17/24 17:58 Hematocrit 30.5 % (37-47) L 09/17/24 17:58 Hgb O2 Saturation 97.2 % (95-100) 09/17/24 17:58 Carboxyhemoglobin 1.0 %THgb (0.4-20.1) 09/17/24 17:58 Methemoglobin 0.6 % (0.4-1.5) 09/17/24 17:58 Total Hemoglobin 9.9 g/dL (12-16) L 09/17/24 17:58 Sodium 142.0 mmol/L (131-143) 09/17/24 17:58 Potassium 3.3 mmol/L (3.5-5.0) L 09/17/24 17:58 Glucose 140.0 mg/dL (70-115) H 09/17/24 17:58 Ionized Calcium 1.4 mmol/L (1.1-1.4) 09/17/24 17:58 O2 Delivery Device Nrb 09/17/24 17:58 O2 Liters/Min 12.0 % 09/17/24 17:58 Precision Lens Technician ID [id number] 09/17/24 17:58 Sodium 139 mmol/L (136-145) 09/23/24 04:53 Potassium 3.5 mmol/L (3.5-5.1) 09/23/24 04:53 Chloride 91 mmol/L (98-107) L 09/23/24 04:53 Carbon Dioxide 38 mmol/L (22-29) H 09/23/24 04:53 Anion Gap 13.5 (5-19) 09/23/24 04:53 BUN 37 mg/dL (8-23) H 09/23/24 04:53 Creatinine 1.2 mg/dL (0.5-0.9) H 09/23/24 04:53 GFR Calculation Not Reportable 09/23/24 04:53 Glucose 89 mg/dL (65-115) 09/23/24 04:53 Calculated Osmolality 296 mOsm/kg (285-295) H 09/23/24 04:53 Lactic Acid 3.5 mmol/L (0.5-2.2) H 09/17/24 18:05 Lactic Acid (Sepsis) 2.3 mmol/L (0.5-2.2) H 09/17/24 20:41 Calcium 9.9 mg/dL (8.5-10.5) 09/23/24 04:53 Phosphorus 3.2 mg/dL (2.5-4.5) 09/23/24 04:53 Magnesium 2.0 mg/dL (1.7-2.3) 09/23/24 04:53 Total Bilirubin 0.6 mg/dL (0.15-1.2) 09/23/24 04:53 GGT 46 U/L (5-36) H 09/20/24 03:37 AST 35 U/L (0-32) H 09/23/24 04:53 ALT 35 U/L (0-33) H 09/23/24 04:53 Alkaline Phosphatase 71 U/L (35-105) 09/23/24 04:53 Lactate Dehydrogenase 213 U/L (135-214) 09/20/24 03:37 Troponin T Baseline 260 ng/L (0-10) H* 09/17/24 18:05 Troponin T 120 Minute 287.7 ng/L (0-10) H 09/17/24 20:41 Delta Troponin T 27.7 ABS# (0-10) H* 09/17/24 20:41 Troponin T Hi Sens 6Hr 356.0 ng/L (0-10) H 09/18/24 00:42 Troponin T Hi Sens 6Hr Delta 96.0 ng/L (0-12) H* 09/18/24 00:42 C-Reactive Protein 32.8 mg/L (0.0-4.9) H 09/17/24 18:05 NT-Pro-B Natriuret Pep 10871 pg/mL (0-450) H 09/20/24 03:37 Total Protein 6.4 g/dL (6.6-8.7) L 09/23/24 04:53 Albumin 3.1 g/dL (3.5-5.2) L 09/23/24 04:53 Globulin 3.3 g/dL (1.3-4.6) 09/23/24 04:53 Procalcitonin 1.59 ng/mL (0-0.5) H 09/17/24 18:05 TSH 2.63 uIU/mL (0.27-4.20) 09/17/24 18:05 Urine Color Yellow (Yellow) 09/17/24 23:15 Urine Appearance Clear (CLEAR) 09/17/24 23:15 Urine pH 5.0 (5-7) 09/17/24 23:15 Ur Specific [place] 1.007 (1.005-1.030) 09/17/24 23:15 Urine Protein Negative (Negative) 09/17/24 23:15 Urine Glucose (UA) Negative (Normal) 09/17/24 23:15 Urine Ketones Negative (Negative) 09/17/24 23:15 Urine Blood 2+ (Negative) A 09/17/24 23:15 Urine Nitrate Negative (Negative) 09/17/24 23:15 Urine Bilirubin Negative (Negative) 09/17/24 23:15 Urine Urobilinogen 0.2 mg/dL (Negative) 09/17/24 23:15 Ur Leukocyte Esterase Negative (Negative) 09/17/24 23:15 Urine RBC 11-20 /hpf (0-2) H 09/17/24 23:15 Urine WBC 0-5 /hpf (0-5) 09/17/24 23:15 Ur Squamous Epith Cells 0-5 /hpf (0-5) 09/17/24 23:15 Amorphous Sediment Not Reportable 09/17/24 23:15 Urine Bacteria None seen /hpf (NONE) 09/17/24 23:15 Hyaline Casts 1.65 /lpf 09/17/24 23:15 Nasal MRSA (PCR) Not detected (Not Detecte) 09/17/24 23:30 Vancomycin Trough 38.4 ug/mL (10-15) H* 09/20/24 19:35 Random Vancomycin 35.3 ug/mL (20.0-40.0) 09/21/24 12:39 Adenovirus (PCR) Not detected (NOT DETECT) 09/21/24 12:32 C. pneumoniae DNA (PCR) Not detected (NOT DETECT) 09/21/24 12:32 Coronavirus (PCR) Negative (Negative) 09/17/24 20:25 Coronavirus 229E (PCR) Not detected (NOT DETECT) 09/21/24 12:32 Human Metapneumovir PCR Not detected (NOT DETECT) 09/21/24 12:32 Influenza A (H1) PCR Not detected (NOT DETECT) 09/21/24 12:32 Influenza A (PCR) Negative (Negative) 09/17/24 20:25 Influ A (H1/09) PCR Not detected (NOT DETECT) 09/21/24 12:32 Influenza A (H3) PCR Not detected (NOT DETECT) 09/21/24 12:32 Influenza Type A (PCR) Not detected (NOT DETECT) 09/21/24 12:32 Influenza Type B (PCR) Not detected (NOT DETECT) 09/21/24 12:32 M. pneumoniae (PCR) Not detected (NOT DETECT) 09/21/24 12:32 Parainfluenza 1 (PCR) Not detected (NOT DETECT) 09/21/24 12:32 Parainfluenza 2 (PCR) Not detected (NOT DETECT) 09/21/24 12:32 Parainfluenza 3 (PCR) Not detected (NOT DETECT) 09/21/24 12:32 Parainfluenza 4 (PCR) Not detected (NOT DETECT) 09/21/24 12:32 RSV (PCR) Negative (Negative) 09/17/24 20:25 RSV Type A (PCR) Not detected (NOT DETECT) 09/21/24 12:32 RSV Type B (PCR) Not detected (NOT DETECT) 09/21/24 12:32 Entero/Rhino (PCR) Not detected (NOT DETECT) 09/21/24 12:32 SARS-CoV-2 (PCR) Not detected (NOT DETECT) 09/21/24 12:32 Beta-(1,3)-D-Glucan Cancelled 09/17/24 20:25 B-(1,3)-D-Glucan Intrp Cancelled 09/17/24 20:25 Vitals Last Vital Signs Temp 97.6 F 09/24/24 08:00 Pulse 100 09/24/24 08:00 Resp 18 09/24/24 13:17 BP 92/58 09/24/24 08:00 Pulse Ox 84 L 09/24/24 13:00 O2 Del Method Room Air 09/23/24 20:00 O2 Flow Rate 2 09/23/24 11:24 Discharge Plan Discharge Condition: Stable Prescriptions: No Action (DME) Acapella See Rx Instructions .Route .MEDSUPPLY Qty: 1 0RF Rx Instructions: As directed tiotropium bromide [Spiriva with HandiHaler] 18 mcg capsule, w/inhalation device 1 cap inhalation DAILY Qty: 60 6RF Rx Instructions: puncture 1 cap using device; one dose = 2 inhalations atorvastatin 40 mg tablet 40 mg PO BEDTIME 30 Days Qty: 30 1RF clopidogrel [Plavix] 75 mg tablet 75 mg PO DAILY 30 Days Qty: 30 3RF furosemide 20 mg tablet 20 mg PO DAILY Qty: 90 3RF Hold Instructions: Resume on 10/23/23. sennosides-docusate sodium [Stool Softener-Laxative] 8.6-50 mg Tablet 1 tab PO DAILY Qty: 10 0RF tramadol 50 mg tablet 50 mg PO Q8H PRN (Reason: Pain) Qty: 20 0RF lorazepam 1 mg tablet 0.5 - 1 mg PO DAILY PRN (Reason: Anxiety) nitroglycerin [Nitrostat] 0.4 mg Tablet, Sublingual 0.4 mg SUBLINGUAL Q5M PRN (Reason: Chest Pain) Rx Instructions: do not exceed 3 doses per episode levofloxacin 750 mg tablet 750 mg PO DAILY 5 Days Qty: 5 0RF prednisone 10 mg Tablet 10 mg PO DAILY Qty: 30 0RF Rx Instructions: Take 40mg in the AM and 20mg in the pm for 2 days, then 20mg in the AM and 10mg in the PM for 2 days, then resume 10mg daily. Eliquis DVT-PE Treat 30D Start 5 mg (74 tabs) tablets,dose pack 5 mg PO BID Qty: 74 0RF trazodone 50 mg tablet 50 mg PO QPM PRN (Reason: Sleep) omeprazole 40 mg capsule,delayed release(DR/EC) 40 mg PO BID sacubitril-valsartan [Entresto] 24-26 mg tablet 0.5 tab PO BID Referrals: Eber Albarran MD [Primary Care Provider] - Patient Instructions: Opioid Safety Discharge Attestations Status at Discharge: Cognitive status at discharge: cognitively intact , Behavioral status at discharge: cooperative , Coding Level of Care Code Acute Code for Chg Fwd Diagnoses Pulmonary hypertension I27.20 Chronic systolic congestive heart failure I50.22 Heart failure type: systolic Heart failure chronicity: chronic Severe tricuspid regurgitation I07.1 Atherosclerosis of [place]iatam coronary artery of y[place]iat[place] heart without angina pe ctoris I25.10 Coronary Disease-Associated Artery/Lesion type: [place] artery Sepsis with acute hypoxic respiratory failure A41.9; R65.20; J96.01 Pneumonia J18.9 Acute on chronic hypoxic respiratory failure J96.21 Systolic CHF, acute I50.21
--- NOTE | 2024-09-24 17:30 | P.DES_ITS ---
Discharge Providers DDS Date of Admission: 09/17/24 21:25 Date Summary Completed: 09/24/24 Attending Provider at Admission: Andre Bunn MD Time of : 15:06 Attending Provider at Discharge: Germania Jameson MD Primary Care Provider: Eber Albarran MD DS Diagnoses Hospital Diagnoses (1) Pulmonary hypertension: (2) Congestive heart failure: Qualifiers: Heart failure type: systolic Heart failure chronicity: chronic Qualified Code(s): I50.22 - Chronic systolic (congestive) heart failure (3) Severe tricuspid regurgitation: (4) Atherosclerosis of coronary artery of jamul heart without angina pectoris: Qualifiers: Coronary Disease-Associated Artery/Lesion type: jamul artery Qualified Code(s): I25.10 - Atherosclerotic heart disease of jamul coronary artery without angina pectoris (5) Sepsis with acute hypoxic respiratory failure: (6) Pneumonia: (7) Acute on chronic hypoxic respiratory failure: (8) Systolic CHF, acute: Reason for Visit Reason for Visit sob Summary Date and Time of Date of : 09/24/24 Time of : 15:06 Summary Summary: Karen Hernandes was a 84 year old female with a past medical history of pulm hyp ertension, severe tricuspid valve regurg, COPD, anemia, atrial fibrillation systolic CHF with low EF, low BMI, recent admitted to [facility] for sepsis related to right lower lobe pneumonia, shock, atrial fibrillation, troponin elevation, systolic CHF exacerbation, possible LV thrombus for which she is on anticoagulation. She was discharged from the hospital after management of pneumonia on 09/17/2024 but returned the same day with a desaturation down to 70s on her regular 3 L/min supplemental O2. Patient was diagnosed with pneumonia with Pseudomonas aeruginosa, resistant to oral antibiotics. Therefore she was admitted to be treated with IV meropenem here. She did experience transient improvement in her respiratory status though her course remained notable for atrial fibrillation, difficulty controlling her heart rate and eventually being placed on amiodarone, difficulties with chronically and persistently low blood pressures. Patient showed signs of deconditioning and malnourishment weighing only 41 kg with a BMI of 16. On 09/23/2024, patient started refusing all oral medications and supplemental oxygen. She stated that she had been contemplating her goals of care for a very long time now. She knew that given her multiple comorbidities she would not go back to a level of previous functioning. Up until 1-1/2 years ago patient stated that she had been independent, mobile but over the last 1-1/2 years she had been experiencing recurrent pneumonias which had impacted her quality of life significantly. She had an extensive goals of care discussion with her family on the afternoon of 09/23/2024 and decided that she did not want any further interventions to prolong her life. She wanted nature to take its course. It was discussed with her quite extensively the same evening that refusal to take medications such as amiodarone, refusal of oxygen, refusal of diuretics, refusal of Eliquis in the presence of a possible LV thrombus, refusal of midodrine to maintain her blood pressure is highly likely to be fatal for her. Without these medications she would likely not survive from area much longer. Patient's had stated that she had been thinking about all of her options for a few days to weeks now and at this point had made peace with the fact that she was at end-of-life. She was alert awake and oriented and made the decision in presence of her daughters to transition to comfort care management. Her 2 daughters were at bedside and son was over the phone and agreed with her decision. Patient transition to comfort care management in the evening of 09/23/2024 and on 09/24/2024 at 1506 hrs. This documentation was created by [employer] solutions sales consultant software. Every effort was made to ensure accuracy of solutions sales consultant. Any obvious errors or omissions should be clarified with the author of the document. Additional Data Confirmation of as documented by pronouncing clinician: no pulse, no respirations, no heart sounds and pupils fixed and dilated Family: at bedside Attending/PCP notified?: I am attending Was code activated?: No Autopsy requested?: No Advance directives?: No Hospice patient?: Yes (comfort care ) Discharge Plan Discharge Condition: Stable Prescriptions: No Action (DME) Acapella See Rx Instructions .Route .MEDSUPPLY Qty: 1 0RF Rx Instructions: As directed tiotropium bromide [Spiriva with HandiHaler] 18 mcg capsule, w/inhalation device 1 cap inhalation DAILY Qty: 60 6RF Rx Instructions: puncture 1 cap using device; one dose = 2 inhalations atorvastatin 40 mg tablet 40 mg PO BEDTIME 30 Days Qty: 30 1RF clopidogrel [Plavix] 75 mg tablet 75 mg PO DAILY 30 Days Qty: 30 3RF furosemide 20 mg tablet 20 mg PO DAILY Qty: 90 3RF Hold Instructions: Resume on 10/23/23. sennosides-docusate sodium [Stool Softener-Laxative] 8.6-50 mg Tablet 1 tab PO DAILY Qty: 10 0RF tramadol 50 mg tablet 50 mg PO Q8H PRN (Reason: Pain) Qty: 20 0RF lorazepam 1 mg tablet 0.5 - 1 mg PO DAILY PRN (Reason: Anxiety) nitroglycerin [Nitrostat] 0.4 mg Tablet, Sublingual 0.4 mg SUBLINGUAL Q5M PRN (Reason: Chest Pain) Rx Instructions: do not exceed 3 doses per episode levofloxacin 750 mg tablet 750 mg PO DAILY 5 Days Qty: 5 0RF prednisone 10 mg Tablet 10 mg PO DAILY Qty: 30 0RF Rx Instructions: Take 40mg in the AM and 20mg in the pm for 2 days, then 20mg in the AM and 10mg in the PM for 2 days, then resume 10mg daily. Eliquis DVT-PE Treat 30D Start 5 mg (74 tabs) tablets,dose pack 5 mg PO BID Qty: 74 0RF trazodone 50 mg tablet 50 mg PO QPM PRN (Reason: Sleep) omeprazole 40 mg capsule,delayed release(DR/EC) 40 mg PO BID sacubitril-valsartan [Entresto] 24-26 mg tablet 0.5 tab PO BID Referrals: Eber Albarran MD [Primary Care Provider] - Patient Instructions: Opioid Safety Probable Cause of Probable cause of : Heart failure DS Attestations Time Spent in /Discharge Care*: greater than 30 min Quality - AMI: AMI present?: No Quality - Stroke: CVA present?: No Symptom Onset Unknown: No Quality - VTE: VTE present?: No Coding Level of Care Code Acute Code for [facility] Fwd Diagnoses Pulmonary hypertension I27.20 Chronic systolic congestive heart failure I50.22 Heart failure type: systolic Heart failure chronicity: chronic Severe tricuspid regurgitation I07.1 Atherosclerosis of jamul coronary artery of jamul heart without angina p ectoris I25.10 Coronary Disease-Associated Artery/Lesion type: jamul artery Sepsis with acute hypoxic respiratory failure A41.9; R65.20; J96.01 Pneumonia J18.9 Acute on chronic hypoxic respiratory failure J96.21 Systolic CHF, acute I50.21
[2024-09-24 22:45] LABS: Fungitell 1-3-B Glucan Assay 49 pg/ml; Interpretation Negative (Negative)
== END 2024-09-24 18:33 | disposition expired | DRG 871 ==
LOC: ER 20:02 → ICU 21:26 → MEDSURG 09-23 10:48
PROVIDERS: Internal Medicine; Admitting Provider Family Medicine; Emergency Provider Emergency Medicine; PCP Family Medicine; Visit Provider Student in an Organized Health Care Education/Training Program
DX: A41.9 Sepsis, unspecified organism (principal); E43 Unspecified severe protein-calorie malnutrition; I50.23 Acute on chronic systolic (congestive) heart failure; J15.1 Pneumonia due to Pseudomonas; R65.21 Severe sepsis with septic shock; J96.21 Acute and chronic respiratory failure with hypoxia; I21.A1 Myocardial infarction type 2; Z16.20 Resistance to unspecified antibiotic; J44.0 Chronic obstructive pulmonary disease with (acute) lower respiratory infection; J44.1 Chronic obstructive pulmonary disease with (acute) exacerbation; I24.0 Acute coronary thrombosis not resulting in myocardial infarction; Z68.1 Body mass index [BMI] 19.9 or less, adult; N17.9 Acute kidney failure, unspecified; E87.20 Acidosis, unspecified; I27.20 Pulmonary hypertension, unspecified; I07.1 Rheumatic tricuspid insufficiency; I48.0 Paroxysmal atrial fibrillation; Z51.5 Encounter for palliative care; J84.10 Pulmonary fibrosis, unspecified; J43.9 Emphysema, unspecified; I25.5 Ischemic cardiomyopathy; R74.01 Elevation of levels of liver transaminase levels; E87.6 Hypokalemia; M80.08XD Age-related osteoporosis with current pathological fracture, vertebra(e), subsequent encounter for fracture with routine healing; Z66 Do not resuscitate; I95.9 Hypotension, unspecified; Z79.01 Long term (current) use of anticoagulants; Z79.02 Long term (current) use of antithrombotics/antiplatelets; Z87.891 Personal history of nicotine dependence; Z99.81 Dependence on supplemental oxygen
CPT/HCPCS: 0241U; 36415; 51702; 71045; 80048; 80051; 80053; 80202; 81001; 82330; 82805; 82977; 83605; 83615; 83735; 83880; 84100; 84145; 84443; 84450; 84460; 84484; 85025; 85610; 85730; 86140; 87040; 87070; 87077; 87086; 87186; 87205; 87449; 87486; 87581; 87633; 93005; 94640; 94664; 96365; 96367; 96372; 96374; 96375; 96376; 97161; 97166; 97530; 99285; J0283; J1644; J1650; J1940; J2060; J2185; J2270; J2470; J3370; J3480; J7050; J7512; J7626